=== PATIENT | male | born 1940 | race Caucasian/White ===

== ENCOUNTER 2016-12-14 14:28 | Observation (INO) ==
--- NOTE | 2016-12-14 15:03 | Emergency Department Note ---
Disposition Clinical Impression: Weakness generalized, COPD exacerbation Fatigue Qualifiers: Fatigue type: unspecified Qualified Code(s): R53.83 - Other fatigue Hypotension Qualifiers: Hypotension type: orthostatic hypotension Qualified Code(s): I95.1 - Orthostatic hypotension Disposition: Admitted As Inpatient Condition: Fair Time of Disposition: 16:02 General Adult HPI - General Chief complaint: ED Dizziness Stated complaint: Bp is low Source: patient Limitations: no limitations Nursing Notes Reviewed: Yes Vital Signs Reviewed: Yes - History of Present Illness HPI Narrative: Patient is 76-year-old male complains of dizziness and feeling like he was going to pass out. Patient states that 2 weeks ago he had an episode while working on his car and was bent forward for a period of time. Patient states that when he stood up he felt lightheaded and dizzy. He said the sensation passed after a few minutes and he did not have that sensation until 2 days ago. One day ago he went to urgent care and was told he was hypotensive. Patient with that his pulmonologists today where he was found to be hypotensive again. Patient has a history of diabetes and COPD. Patient had sinusitis 2 weeks ago and was treated with antibiotics and completed his course. Pain Scale: 0 - Related Data Home Medications Medication Instructions Recorded Confirmed Amitriptyline [Elavil] 100 mg PO HS 10/11/16 12/14/16 Aspirin [Ecotrin] 325 mg PO DAILY 10/11/16 12/14/16 Atorvastatin [Lipitor] 20 mg PO HS 10/11/16 12/14/16 Fish Oil/Dha/Epa [Fish Oil 1,200 1 each PO DAILY 10/11/16 12/14/16 mg Fish Oil] Fluticasone/Salmeterol [Advair Hfa 2 puff IH BID 10/11/16 12/14/16 230-21 Mcg Inhaler] Furosemide [Lasix] 40 mg PO DAILY 10/11/16 12/14/16 Levothyroxine [Levothyroxine 137 mcg PO DAILY 10/11/16 12/14/16 Sodium] Loratadine [Allergy Relief] 10 mg PO DAILY 10/11/16 12/14/16 Metformin HCl [Glucophage] 1,000 mg PO BID 10/11/16 12/14/16 Metoprolol Succinate 25 mg PO DAILY 10/11/16 12/14/16 Pioglitazone [Actos] 15 mg PO DAILY 10/11/16 12/14/16 SitaGLIPtin [Januvia] 100 mg PO DAILY 10/11/16 12/14/16 Vit C/E/Zn/Coppr/Lutein/Zeaxan 1 tab PO DAILY 10/11/16 12/14/16 [Preservision Areds 2 Softgel] Albuterol Sulfate [Proventil Hfa] 2 puff IH QID 12/14/16 12/14/16 Diclofenac Sodium [Voltaren] 1 - 2 gm TP 2-3XD PRN 12/14/16 12/14/16 FLUoxetine HCl [PROzac] 20 mg PO DAILY 12/14/16 12/14/16 Fluticasone Propionate Nasal 50 mcg NS DAILY 12/14/16 12/14/16 [Flonase] Gabapentin [Neurontin] 600 mg PO TID 12/14/16 12/14/16 Lisinopril [Zestril] 10 mg PO DAILY 12/14/16 12/14/16 Omeprazole [PriLOSEC] 40 mg PO DAILY 12/14/16 12/14/16 Oxygen 3 l NS AD 12/14/16 12/14/16 Allergies Allergy/AdvReac Type Severity Reaction Status Date / Time No Known Allergies Allergy Verified 10/11/16 10:33 Review of Systems: Patient denies headache, fever, chills, chest pain, chest pressure, cough, abdominal pain, diarrhea. Patient admits to worsening dyspnea on exertion stating that he can go three quarters of the distance he normally goes. Patient was not able to give me a measurement of the distance. Patient admits to generalized weakness and dizziness. Patient states that if he were to get up and walk he would lean toward the left every time. Patient admits to increase urinary frequency but he was recently started on Lasix. Patient denies anything else on review of systems when asked if there was anything worrisome that was not asked. All systems ED: reviewed and negative except as stated. Past Medical History - Past Medical History Attestation: Yes The following information was validated with the patient. Medical history: Reports: arthritis, cancer, COPD, diabetes, GERD, hyperlipidemia, hypertension, peripheral artery disease, thyroid disease, other Psychiatric history: Reports: no psych history - Social History Smoking Status: Former smoker Smokeless Tobacco Status: No Alcohol use: Reports: none Drug use: Reports: none Physical Exam Vital Signs Temperature 97.6 F 12/14/16 14:29 Pulse Rate 96 12/14/16 14:29 Respiratory Rate 16 12/14/16 14:29 Blood Pressure 132/70 12/14/16 14:29 O2 Sat by Pulse Oximetry 97 12/14/16 14:29 Temperature 97.6 F 12/14/16 14:29 Pulse Rate 96 12/14/16 14:29 Respiratory Rate 16 12/14/16 14:29 Blood Pressure 132/70 12/14/16 14:29 O2 Sat by Pulse Oximetry 97 12/14/16 14:29 Oxygen Delivery Oxygen Delivery Room Air -General Appearance: Patient is a 76-year-old male who is alert and oriented 3 and in no acute distress. -Neurological exam: Cranial nerves II-12 intact, no focal deficits observed, strength equal 5/5 bilaterally in upper and lower extremities, cerebellar motion test negative. Negative loss of sensation - Head Head exam: atraumatic, normocephalic, normal inspection - Eye Eye exam: Present: normal appearance, PERRL, EOMI, negative for scleral icterus negative for conjunctival pallor - ENT ENT exam: normal exam, normal oropharynx, mucous membranes moist - Neck Neck exam: Present: normal inspection, full ROM, trachea midline, negative JVD - Chest Chest inspection: Present: Patient has bilateral equal rise and fall of chest wall. Non-tender to palpation. - Respiratory Respiratory exam: Clear to auscultation bilaterally without wheezes rales or rhonchi Cardiovascular Cardiovascular exam: Present: regular rate, normal rhythm, normal heart sounds, without murmurs rubs or gallops. - Abdominal Exam Abdominal exam: Present: soft, round obese abdomen, Non-Tender light and deep palpation in all quadrants. Bowel sounds normoactive throughout all 4 quadrants. Negative for hyper or hyperresonance. - Extremities Exam Extremities exam: Present: normal inspection, full ROM - Psychiatric Psychiatric exam: Present: normal affect, normal mood - Skin Skin exam: Present: warm, dry, intact, abnormal skin condition on legs. Areas of erythema that appear chronic. Does not look infectious in nature. - General Limitations: no limitations General appearance: alert, in no apparent distress Course Course Narrative: Patient seen and examined. Syncope workup initiated. - Reevaluation(s) Reevaluation #1: Patient has complaints of shortness of breath but has O2 sat 97% patient was ordered DuoNeb therapy Time: 15:05 Reevaluation #2: Patient states she has no change in his shortness of breath after DuoNeb therapy. The patient that will be admitted to the hospital first try to figure out why he is having is hypotension episodes which appear to be related to his shortness of breath. Patient understands agrees treatment and plan Time: 16:12 - Consultations Consultation #1: Dr. Robertson has accepted patient for admission Time: 15:55 Vital Signs Temperature 97.6 F 12/14/16 14:29 Pulse Rate 96 12/14/16 14:29 Respiratory Rate 16 12/14/16 14:29 Blood Pressure 132/70 12/14/16 14:29 O2 Sat by Pulse Oximetry 97 12/14/16 14:29 Temperature 97.6 F 12/14/16 14:29 Pulse Rate 96 12/14/16 14:29 Respiratory Rate 18 12/14/16 16:45 Blood Pressure 111/68 12/14/16 16:45 O2 Sat by Pulse Oximetry 98 12/14/16 15:18 Oxygen Delivery Oxygen Delivery Nasal Cannula Medical Decision Making - [facility] Narrative Medical decision making narrative: Mr. Doe is a 76-year-old male with a past medical history significant for diabetes and COPD, and vertigo. Patient patient has worsening dyspnea on exertion, fatigue, and generalized weakness. Patient stated that he felt that he was going to pass out yesterday and needed his wheelchair. Patient is found to be hypotensive at his appointment with his vertigo specialist 2 days ago, he is found to be hypotensive yesterday at urgent care, and incontinent to be a pleasant hypotensive today at his pulmonolgy appointment. At presentation to the ED patient is normotensive. CBC is unremarkable, patient's BMP showed elevation of BUN at 27. Patient has been on Lasix for diuresis. Patient's troponin is 0.00, patient's BNP is 106, however patient has a BMI of 43.2. EKG shows a normal sinus rhythm with no signs of ischemia or acute ST abnormalities. Patient had an episode of witnessed hypotension at 93/53. Chest x-ray showed no acute cardiopulmonary disease. Patient is short of breath and has received DuoNeb therapy 2. Patient is on 3 L via nasal cannula. Patient will be admitted for COPD exacerbation with orthostatic hypotension, generalized weakness and fatigue with further workup after admission Patient is admitted and was accepted by Dr. Robertson. - Medical Records Medical records reviewed: Yes I reviewed the patient's medical records. - Lab Data Lab results reviewed: Yes I reviewed the patient's lab results. Lab results narrative: Short CBC 12/14/16 Range/Units 14:55 WBC 10.4 (4.3-11.1) K/mcL Hgb 12.9 (12.9-16.9) g/dL Hct 40.0 (37.5-50.1) % Plt Count 215 (140-400) K/mcL Neutrophils # 6.8 (1.6-8.9) K/mcL BMP 12/14/16 Range/Units 14:55 Sodium 136 (136-145) mEq/L Potassium 4.3 (3.5-4.5) mEq/L Chloride 101 (98-109) mEq/L Carbon Dioxide 25 (19-29) mEq/L BUN 27 H (8-26) mg/dL Creatinine 1.21 (0.72-1.25) mg/dL Glucose 135 H (70-99) mg/dL Calcium 9.1 (8.6-10.8) mg/dL Cardiac Enzymes 12/14/16 Range/Units 14:55 Troponin I 0.00 (0-0.03) ng/mL Result diagrams: 12/14/16 14:55 12/14/16 14:55 Lab Results 12/14/16 12/14/16 12/14/16 Range/Units 14:55 14:55 14:55 WBC 10.4 (4.3-11.1) K/mcL RBC 4.13 L (4.19-5.50) M/mcL Hgb 12.9 (12.9-16.9) g/dL Hct 40.0 (37.5-50.1) % MCV 96.9 (83.0-100.0) fL MCH 31.2 (28.0-33.3) pg MCHC 32.3 (31.6-35.5) g/dL RDW 14.0 (11.5-14.5) % Plt Count 215 (140-400) K/mcL MPV 10.0 (9.4-12.4) fL Immature Gran % 0.4 (0-4) % Seg Neutrophils % 65.4 % Lymphocytes % 22.3 % Monocytes % 8.6 % Eosinophils % 3.1 % Basophils % 0.2 % Neutrophils # 6.8 (1.6-8.9) K/mcL Lymphocytes # 2.3 (0.6-4.6) K/mcL Monocytes # 0.9 (0.0-1.3) K/mcL Eosinophils # 0.3 (0.0-0.6) K/mcL Basophils # 0.0 (0.0-0.2) K/mcL Sodium 136 (136-145) mEq/L Potassium 4.3 (3.5-4.5) mEq/L Chloride 101 (98-109) mEq/L Carbon Dioxide 25 (19-29) mEq/L BUN 27 H (8-26) mg/dL Creatinine 1.21 (0.72-1.25) mg/dL Est GFR ( Amer) > 60 (> 60) Est GFR (Non-Af Amer) 58 L (> 60) BUN/Creatinine Ratio 22 (6-26) Glucose 135 H (70-99) mg/dL Calculated Osmolality 289 (280-300) Calcium 9.1 (8.6-10.8) mg/dL Troponin I 0.00 (0-0.03) ng/mL B-Natriuretic Peptide (0-100) pg/mL 12/14/16 Range/Units 14:55 WBC (4.3-11.1) K/mcL RBC (4.19-5.50) M/mcL Hgb (12.9-16.9) g/dL Hct (37.5-50.1) % MCV (83.0-100.0) fL MCH (28.0-33.3) pg MCHC (31.6-35.5) g/dL RDW (11.5-14.5) % Plt Count (140-400) K/mcL MPV (9.4-12.4) fL Immature Gran % (0-4) % Seg Neutrophils % % Lymphocytes % % Monocytes % % Eosinophils % % Basophils % % Neutrophils # (1.6-8.9) K/mcL Lymphocytes # (0.6-4.6) K/mcL Monocytes # (0.0-1.3) K/mcL Eosinophils # (0.0-0.6) K/mcL Basophils # (0.0-0.2) K/mcL Sodium (136-145) mEq/L Potassium (3.5-4.5) mEq/L Chloride (98-109) mEq/L Carbon Dioxide (19-29) mEq/L BUN (8-26) mg/dL Creatinine (0.72-1.25) mg/dL Est GFR ( Amer) (> 60) Est GFR (Non-Af Amer) (> 60) BUN/Creatinine Ratio (6-26) Glucose (70-99) mg/dL Calculated Osmolality (280-300) Calcium (8.6-10.8) mg/dL Troponin I (0-0.03) ng/mL B-Natriuretic Peptide 106 H (0-100) pg/mL - Radiology Data Radiology results reviewed: Yes I reviewed the patient's radiology results. Chest X-Ray 12/14/16 15:06 IMPRESSION: No acute cardiopulmonary disease D/ / Emmanuel Huertas MD / Emmanuel Huertas MD Interpreting Provider: Emmanuel Huertas MD Attestation Statement - Attestation Attestation: I examined this patient and my medical decision-making was reviewed with the Resident Physician. I agree with the documented findings, disposition and treatment plan as described except to the extent set forth below. Exertional dyspnea. Sent in for suspicion of HF d/t sx and peripheral edema, but ED W/U unconvincing - CXR does not show congestion, BNP just over 100, no physical exam evidence of volume overload other than LE edema, certainly not specific for HF. Work up for anginal equivalent is warranted.
[2016-12-14] MEDS ORDERED: methylPREDNISolone 125 MG/2 ML VIAL IVP ONE (15:05)
[2016-12-14] MEDS ORDERED: Ipratropium/Albuterol Neb 3 ML IH ONE (15:05)
[2016-12-14 15:13] LABS: Basophils % 0.2 %; Eosinophils # 0.3 K/mcL (0.0-0.6); Eosinophils % 3.1 %; Hemoglobin 12.9 g/dL (12.9-16.9); Immature Granulocytes % 0.4 % (0-4); Lymphocytes # 2.3 K/mcL (0.6-4.6); Lymphocytes % 22.3 %; Mean Corpuscular HGB Conc 32.3 g/dL (31.6-35.5); Mean Corpuscular Hemoglobin 31.2 pg (28.0-33.3); Mean Corpuscular Volume 96.9 fL (83.0-100.0); Monocytes # 0.9 K/mcL (0.0-1.3); Monocytes % 8.6 %; Neutrophils # 6.8 K/mcL (1.6-8.9); Platelet Count 215 K/mcL (140-400); Red Blood Count 4.13 M/mcL (4.19-5.50); Segmented Neutrophils % 65.4 %
[2016-12-14 15:24] LABS: BUN/Creatinine Ratio 22 (6-26); Blood Urea Nitrogen 27 mg/dL (8-26); Calcium 9.1 mg/dL (8.6-10.8); Carbon Dioxide 25 mEq/L (19-29); Chloride 101 mEq/L (98-109); Glucose 135 mg/dL (70-99); Osmolality,Calculated 289 (280-300); Potassium 4.3 mEq/L (3.5-4.5); Sodium 136 mEq/L (136-145); eGFR For African Americans > 60 (> 60); eGFR For Non-African Americans 58 (> 60)
[2016-12-14] MEDS ORDERED: Naloxone 0.4 MG/ML INJ IVP PRN (17:19)
[2016-12-14] MEDS ORDERED: Ondansetron 4 MG/2 ML VIAL IVP PRN (17:19)
[2016-12-14] MEDS ORDERED: Acetaminophen 325 MG TABLET PO PRN (17:19)
[2016-12-14] MEDS ORDERED: D5% in Water 1,000 ML IV PRN (17:30)
[2016-12-14] MEDS ORDERED: Albuterol 2.5 MG/3 ML NEBULIZER IH PRN (17:30)
[2016-12-14] MEDS ORDERED: Dextrose Gel 15 GM PO PRN ×2 (17:30)
[2016-12-14] MEDS ORDERED: *HR* Dextrose 50 % in Water (Syg) 50 ML SYRINGE IVP PRN (17:30)
--- NOTE | 2016-12-14 20:13 | Internal Med History&Physical ---
Date of Encounter: 12/27/16 Time of Encounter: 18:30 Assessment and Plan (1) Hypotension Status: Acute 1 patient was recently started on lasix and is on multiple medications that can lower BP including metoprolol and lisinopril. I suspect his hypotension is related to these changes. I will hold lasix for now and give gentle IV hydration. BUN is elevated at 27 -Lasix can be resumed at a lower dose. He had an echo in June EF 55% with mild diastolic dysfunction will hold lisinoprol for now . May need to reduce dosage of metoprolol and lisinopril 2 orhtostatic vital signs 3 Fall precautions Qualifiers: Hypotension type: orthostatic hypotension Qualified Code(s): I95.1 - Orthostatic hypotension (2) COPD (chronic obstructive pulmonary disease) Status: Chronic 1 presently there is no wheezing and sats are stable on 3 L NC. will continue with oxygen titrate to maintain Spo2>92% 2 continue with bronchodilators 3 Will have patient continue with outpatient pulmonary rehab Qualifiers: COPD type: unspecified COPD Qualified Code(s): J44.9 - Chronic obstructive pulmonary disease, unspecified (3) Diabetes mellitus Status: Chronic 1 His A1c was 6.4 - patient is on oral antidiabetics- will hold for now and check BS AC/HS with SSI as needed to maintain postprandial less than 180. Qualifiers: Diabetes mellitus type: type 2 Diabetes mellitus complication detail: with unspecified neuropathy Diabetes mellitus terminal clerk insulin use: without mcc use Qualified Code(s): E11.40 - Type 2 diabetes mellitus with diabetic neuropathy, unspecified (4) HTN (hypertension) Status: Chronic 1 presently hypotensive, will hold lisinopril and lasix resume once back to baseline. continue metoprolol with parameters hold for systolic less less than 100 and HR less than 60 Qualifiers: Hypertension type: essential hypertension Qualified Code(s): I10 - Essential (primary) hypertension (5) Hypothyroid Status: Chronic 1 will check TSH, will continue with synthroid Qualifiers: Hypothyroidism type: unspecified Qualified Code(s): E03.9 - Hypothyroidism , unspecified (6) KYLEE (obstructive sleep apnea) Status: Chronic Internal Medicine - H&P: HPI Chief complaint: low B/P Admitted From: Home Plans for Post Hospital Care: Home History of present illness: Mr. Doe is a 76 year old male with a past medical history of hypertension diabetes hyperthyroid COPD oxygen dependent at 3 L nasal cannulasi after vertigo. Patient states that he has been experiencing episodes of lightheadedness which began on Monday. He experienced lightheadedness with positional changes and that the sensation went resolve on Monday he went to his primary care physician orthostatic vital signs were taken he did have a drop in blood pressure he was advised to go to the emergency room which she declined. Today he was at pulmonary rehabilitation where he was found to be hypertensive and again was advised to go to the emergency department for evaluation. The patient had sinusitis 2 weeks ago and was treated with antibiotics which he states he completed his course. Also he did experience vertigo approximate one month ago she states the symptoms are the same. Patient denies any headaches fevers chills chest pain cough, pain. He has been experiencing worsening fatigue , generalized weakness and dyspnea on exertion, he is on oxygen 3 L nasal cannula and was recently placed on CPAP at night for KYLEE. He has had a recent change in medication was placed on Lasix, however he does not know why he was started on this medication Upon arrival to emergency department patient's blood pressure was 132/70 oxygen saturation was 97% pulse was 96 he was afebrile. CBC was unremarkable Chem 7, BUN was slightly elevated 27 troponin was 0 EKG with normal sinus rhythm with no ST T wave abnormalities chest x-ray with no acute cardiopulmonary process. While in the ER he did experience a episode of hypotension with blood pressure dropping to 93/53. During this episode he did become short of breath and received duo nebs 2 he is admitted for further workup and evaluation. At present patient does not appear to be in any respiratory distress he denies any chest pain or shortness of breath at this time. He is hemodynamically stable at this time.I reviewed case with Dr Lay who agrees with plan Past Med Surg Social Fam HX - Past Medical History Medical history: arthritis, cancer, COPD, diabetes, GERD, hyperlipidemia, hypertension, peripheral artery disease, thyroid disease, other Psychiatric history: no psych history - Social History Smoking Status: Former smoker Smokeless Tobacco Status: No Alcohol use: none Drug use: none - Family History Father History Unknown: Yes Adopted: No Family Member Ethnicity: Non- Living Status: Hx Family Cardiac Disorders: No Hx Family Respiratory Disorders: Yes (Asbestosis) Hx Family Cancer: Yes (Lung CA) Hx Family GI Disorders: No Hx Family Endocrine Disorder: No Hx Family Neuromuscular Disorders: No Hx Family Neurologic Disorders: No Hx Family HEENT Disorders: No Hx Family Autoimmune Disorders: No Internal Medicine - H&P: Meds Amitriptyline [Elavil] 100 mg PO HS 10/11/16 [History] Atorvastatin [Lipitor] 20 mg PO HS 10/11/16 [History] Fish Oil/Dha/Epa [Fish Oil 1,200 mg Fish Oil] 1 each PO DAILY 10/11/16 [History] Fluticasone/Salmeterol [Advair Hfa 230-21 Mcg Inhaler] 2 puff IH BID 10/11/16 [ History] Levothyroxine [Levothyroxine Sodium] 137 mcg PO DAILY 10/11/16 [History] Loratadine [Allergy Relief] 10 mg PO DAILY 10/11/16 [History] Metformin HCl [Glucophage] 1,000 mg PO BID 10/11/16 [History] Pioglitazone [Actos] 15 mg PO DAILY 10/11/16 [History] SitaGLIPtin [Januvia] 100 mg PO DAILY 10/11/16 [History] Vit C/E/Zn/Coppr/Lutein/Zeaxan [Preservision Areds 2 Softgel] 1 tab PO DAILY [History] Albuterol Sulfate [Proventil Hfa] 2 puff IH QID 12/14/16 [History] Diclofenac Sodium [Voltaren] 1 - 2 gm TP 2-3XD PRN 12/14/16 [History] FLUoxetine HCl [Prozac] 20 mg PO DAILY 12/14/16 [History] Fluticasone Propionate Nasal [Flonase] 50 mcg NS DAILY 12/14/16 [History] Gabapentin [Neurontin] 600 mg PO TID 12/14/16 [History] Omeprazole [PriLOSEC] 40 mg PO DAILY 12/14/16 [History] Oxygen 3 l NS AD 12/14/16 [History] Furosemide [Lasix] 10 mg PO DAILY #30 tab 12/16/16 [Rx] Metoprolol [Lopressor] 12.5 mg PO BID #60 tablet 12/16/16 [Rx] Warfarin [Coumadin] 3 mg PO 1800 #4 tablet 12/16/16 [Rx] Allergies No Known Allergies Allergy (Verified 10/11/16 10:33) All Systems PM: A 10-system review of systems was performed and is negative for pertinent findings except as documented above in the HPI. - Constitutional Constitutional: fatigue, weakness - Cardiovascular Cardiovascular ROS IM: dyspnea on exertion, edema, lightheadedness - Respiratory Respiratory: dyspnea on exertion - Gastrointestinal Gastrointestinal: no abdominal pain, no diarrhea, no hematemesis, no hematochezia, no melena, no nausea, no vomiting - Musculoskeletal Musculoskeletal ROS IM: no numbness, no tingling - Neurological Neurological ROS: no confusion, no convulsions, no focal weakness, no numbness, no tingling, no tremor(s) - Constitutional Vitals: Temp Pulse Resp BP Pulse Ox 97.5 F L 85 16 117/73 99 12/14/16 17:54 12/14/16 17:54 12/14/16 17:54 12/14/16 17:54 12/14/16 19:05 General appearance: Present: A&O X 3, answers questions appropriately - Head Head exam: Present: atraumatic, normocephalic - Eye Eye exam: Present: PERRL, conjuntiva pink, sclera anicteric Pupils: Present: PERRL - Respiratory Respiratory exam: Present: CTAB. Absent: accessory muscle use, rales, rhonchi, wheezes - Cardiovascular Cardiovascular exam: Present: RRR, +S1, +S2. Absent: diastolic murmur, gallop, rubs, systolic murmur - GI/Abdominal GI/Abdominal exam: Present: normal bowel sounds, soft, no peritoneal signs. Absent: distended, tenderness - Extremities Exam Extremities exam: Present: pedal edema, warm, radial pulses palpable and symetrical. Absent: calf tenderness, cyanotic Additional comments: +2 edema to lower extremities bilat - Neurological Exam Neurological exam: Present: CN II-XII intact, oriented X3, no focal deficits. Absent: pronater drift, facial droop, speech deficit - Skin Skin exam: Present: dry, intact Internal Med - H&P Results - Labs CBC & Chem 7: 12/16/16 10:16 12/16/16 10:16 - EKG Data EKG shows normal: sinus rhythm Rate: normal - Diagnostic Studies Chest x-ray Additional comments: per radiology read No acute cardiopulmonary process
[2016-12-14 20:35] LABS: Bilirubin,Urine Negative (Negative); Blood,Urine Negative (Negative); Clarity,Urine Clear (Clear); Color,Urine Yellow (Yellow); Glucose,Urine (UA) Normal (Normal); Ketones,Urine Trace mg/dL (Negative); Leukocyte Esterase,Urine Trace (Negative); Nitrite,Urine Negative (Negative); Protein,Urine Negative (Neg-Trace); Urobilinogen,Urine Normal (Normal)
[2016-12-14] MEDS: 0.9 % Sodium Chloride 1,000 ML IVC SCH (20:37)
[2016-12-14] MEDS: Gabapentin 300 MG CAPSULE PO SCH (20:37)
[2016-12-14 20:52] LABS: Bacteria,Urine None Seen per hpf (None-Few); Hyaline Casts,Urine None Seen per lpf (None-Few); RBC,Urine 0-3 per hpf (0-3); Squamous Epithelial Cell,Urine Many per lpf (None-Few)
[2016-12-14] MEDS ORDERED: Insulin LISPRO 300 UNITS/3 ML VIAL SQ SCH (21:00)
[2016-12-14] MEDS: Ipratropium/Albuterol Neb 3 ML IH SCH (22:59)
[2016-12-15 03:52] LABS: BUN/Creatinine Ratio 25 (6-26); Basophils % 0.1 %; Blood Urea Nitrogen 31 mg/dL (8-26); Calcium 8.8 mg/dL (8.6-10.8); Carbon Dioxide 18 mEq/L (19-29); Chloride 101 mEq/L (98-109); Glucose 308 mg/dL (70-99); Hematocrit 34.7 % (37.5-50.1); Hemoglobin 11.4 g/dL (12.9-16.9); Immature Granulocytes % 0.5 % (0-4); Lymphocytes # 0.8 K/mcL (0.6-4.6); Lymphocytes % 7.7 %; Mean Corpuscular HGB Conc 32.9 g/dL (31.6-35.5); Mean Corpuscular Hemoglobin 31.6 pg (28.0-33.3); Mean Corpuscular Volume 96.1 fL (83.0-100.0); Mean Platelet Volume 10.3 fL (9.4-12.4); Monocytes # 0.1 K/mcL (0.0-1.3); Monocytes % 0.9 %; Neutrophils # 8.8 K/mcL (1.6-8.9); Osmolality,Calculated 290 (280-300); Platelet Count 216 K/mcL (140-400); Potassium 4.7 mEq/L (3.5-4.5); Red Blood Count 3.61 M/mcL (4.19-5.50); Red Cell Distribution Width 13.9 % (11.5-14.5); Segmented Neutrophils % 90.8 %; Sodium 131 mEq/L (136-145); eGFR For African Americans > 60 (> 60); eGFR For Non-African Americans 56 (> 60)
[2016-12-15] MEDS: Ipratropium/Albuterol Neb 3 ML IH SCH ×4 (04:31→23:09)
[2016-12-15] MEDS ORDERED: Insulin LISPRO 300 UNITS/3 ML VIAL SQ SCH ×2 (07:30→21:00)
[2016-12-15] MEDS: Loratadine 10 MG TABLET PO SCH (08:19)
[2016-12-15] MEDS: FLUoxetine 20 MG CAPSULE PO SCH (08:19)
[2016-12-15] MEDS: Gabapentin 300 MG CAPSULE PO SCH (08:19)
[2016-12-15] MEDS: Fluticasone Propionate Nasal 50 MCG/SPRAY BOTTLE NS SCH (08:21)
[2016-12-15] MEDS ORDERED: Aspirin Enteric Coated 325 MG Tablet PO SCH (09:00)
[2016-12-15] MEDS ORDERED: Metoprolol XL (24 HR) Succ 25 MG TAB.ER.24H PO SCH (09:00)
[2016-12-15] MEDS: 0.9 % Sodium Chloride 1,000 ML IVC SCH ×2 (09:40→22:30)
--- NOTE | 2016-12-15 10:56 | Electrocardiograph Report ---
[facility] Test Date: 2016-12-14 Pat Name: Natanael Doe Department: 105 Room: 2A24 Gender: M Arborist: SHANDRA : 1940 Requested By: Farhad Pandya Order Number: [id number] Reading MD: Perfecto Isbell MD Measurements Intervals [place] Rate: 88 P: 46 NH: 198 QRS: 43 QRSD: 91 T: 48 QT: 329 QTc: 375 Interpretive Statements SINUS RHYTHM Electronically Signed On 12-15-16 10:54:45 EST by Perfecto Isbell MD
[2016-12-15] MEDS: Insulin LISPRO 300 UNITS/3 ML VIAL SQ SCH ×2 (12:23→17:11)
[2016-12-15] MEDS: Gabapentin 100 MG CAPSULE PO SCH ×2 (14:15→20:15)
[2016-12-15] MEDS ORDERED: *HR* Heparin 5,000 UNIT/ML VIAL SQ SCH (15:00)
--- NOTE | 2016-12-15 15:34 | Cardiology Consult Note ---
Addendum entered and electronically signed by Ba Mohr CNP 12/15/16 15:59 : IS Original Note: Date of Encounter: 12/15/16 Time of Encounter: 15:31 Assessment and Plan (1) Atrial fibrillation Current Visit: Yes Status: Acute EKG showed normal sinus rhythm with first-degree block. 24 hour telemetry review shows atrial fibrillation through the night and this morning. Intermittent atrial fibrillation this morning and now he is normal sinus rhythm. He is asymptomatic. Recommend discontinuing lisinopril and restarting metoprolol if blood pressure allows. CHADS VASc = 3 ( HTN, age, diabetes). Anticoagulation is recommended. He is agreeable to eliquis. Echocardiogram in June of 2016 showed LV ejection fraction of 55% with mild diastolic dysfunction. Normal right ventricular size and function. There was a TR gradient of 26 mmHg. Please call with questions. Qualifiers: Atrial fibrillation type: unspecified Qualified Code(s): I48.91 - Unspecified atrial fibrillation (2) Hypotension Current Visit: Yes Status: Acute Describes orthostatic symptoms. May be secondary hypovolemia after taking increased dose of lasix. Recommend holding lasix and resuming at 20 mg at discharge. Qualifiers: Hypotension type: orthostatic hypotension Qualified Code(s): I95.1 - Orthostatic hypotension Discussion w patient/family: The assessment and plan as outlined above was discussed with the patient and/or family members who expressed understanding and agreement. All questions were answered. Thank you for involving us in the care of your patient. Please call with any questions. History of Present Illness Consult date: 12/15/16 Requesting physician: Abel Winston Consult reason: afib new onset Chief complaint: dizziness History of present illness: Mr. Doe is a 76 year old male who presented with dizziness and SOB. He c/o low blood pressures at home. He was instructed to go to the ER for low blood pressure. He c/o dizziness with position changes and walking. Reports increase in lasix one month ago for SOB and BLE edema. This morning he was noted to have atrial fibrillation. Cardiology consulted for ne onset of atrial fibrillation. He denies palpitations or increased SOB. Past medical history of COPD on home O2, hypertension, hyperlipidemia, DVT, and diabetes type 2. Denies history of CAD. Reports undergoing LHC several years ago showing a narrow blood vessel but no blockages. Echocardiogram in June of 2016 showed LV ejection fraction of 55% with mild diastolic dysfunction. Normal right ventricular size and function. There was a TR gradient of 26 mmHg. Past Med Surg Social Fam HX - Past Medical History Medical history: arthritis, cancer, COPD, diabetes, GERD, hyperlipidemia, hypertension, peripheral artery disease, thyroid disease, other Psychiatric history: no psych history - Social History Smoking Status: Former smoker Smokeless Tobacco Status: No Alcohol use: none Drug use: none - Family History Father History Unknown: Yes Adopted: No Family Member Ethnicity: Non- Living Status: Hx Family Cardiac Disorders: No Hx Family Respiratory Disorders: Yes (Asbestosis) Hx Family Cancer: Yes (Lung CA) Hx Family GI Disorders: No Hx Family Endocrine Disorder: No Hx Family Neuromuscular Disorders: No Hx Family Neurologic Disorders: No Hx Family HEENT Disorders: No Hx Family Autoimmune Disorders: No Medications and Allergies Amitriptyline [Elavil] 100 mg PO HS 10/11/16 [History] Aspirin [Ecotrin] 325 mg PO DAILY 10/11/16 [History] Atorvastatin [Lipitor] 20 mg PO HS 10/11/16 [History] Fish Oil/Dha/Epa [Fish Oil 1,200 mg Fish Oil] 1 each PO DAILY 10/11/16 [History] Fluticasone/Salmeterol [Advair Hfa 230-21 Mcg Inhaler] 2 puff IH BID 10/11/16 [ History] Furosemide [Lasix] 40 mg PO DAILY 10/11/16 [History] Levothyroxine [Levothyroxine Sodium] 137 mcg PO DAILY 10/11/16 [History] Loratadine [Allergy Relief] 10 mg PO DAILY 10/11/16 [History] Metformin HCl [Glucophage] 1,000 mg PO BID 10/11/16 [History] Metoprolol Succinate 25 mg PO DAILY 10/11/16 [History] Pioglitazone [Actos] 15 mg PO DAILY 10/11/16 [History] SitaGLIPtin [Januvia] 100 mg PO DAILY 10/11/16 [History] Vit C/E/Zn/Coppr/Lutein/Zeaxan [Preservision Areds 2 Softgel] 1 tab PO DAILY [History] Albuterol Sulfate [Proventil Hfa] 2 puff IH QID 12/14/16 [History] Diclofenac Sodium [Voltaren] 1 - 2 gm TP 2-3XD PRN 12/14/16 [History] FLUoxetine HCl [PROzac] 20 mg PO DAILY 12/14/16 [History] Fluticasone Propionate Nasal [Flonase] 50 mcg NS DAILY 12/14/16 [History] Gabapentin [Neurontin] 600 mg PO TID 12/14/16 [History] Lisinopril [Zestril] 10 mg PO DAILY 12/14/16 [History] Omeprazole [PriLOSEC] 40 mg PO DAILY 12/14/16 [History] Oxygen 3 l NS AD 12/14/16 [History] Allergies No Known Allergies Allergy (Verified 10/11/16 10:33) All Systems Review: A 10-system review of systems was performed and is negative for pertinent findings except as documented above in the HPI. Physical Examination Vital Signs, Last 4 Hours Temp Pulse Resp BP Pulse Ox 12/15/16 11:52 16 98 12/15/16 11:50 97.5 F L 91 18 92/54 97 General: Conversant, No Apparent Distress HEENT: Atraumatic, Normocephaly, Mucus Membranes Moist Neck: No JVD, Normal carotid pulses Cardiac: Reg Rate and Rhythm, Normal S1 and S2, No Murmur, Other (Currently normal sinus rhythm with intermittent Afib) Lungs: Normal Breath Sounds, No Wheeze, Rales, Rhonchi Neuro: Alert and responsive, No focal deficits noted Abdomen: Soft, Non-Tender, Other (Abdomen large but soft to palpation) Skin: No rashes noted on visualized skin, Other (Brown discoloration bilateral lower extremity) Musculoskeletal: No Chest Wall Tenderness Extremities: No Clubbing, No Cyanosis, Normal Pulses, Other (Trace to 1+ edema up to mid keating bilaterally) Results 12/15/16 03:18 12/15/16 03:18 Lab Results 12/14/16 12/15/16 12/15/16 20:31 03:18 03:18 WBC 9.7 Hgb 11.4 L D Hct 34.7 L Plt Count 216 Sodium Potassium Chloride Carbon Dioxide BUN Creatinine Glucose Calcium Troponin I 0.00 0.00 TSH 12/15/16 12/15/16 03:18 03:18 WBC Hgb Hct Plt Count Sodium 131 L Potassium 4.7 H Chloride 101 Carbon Dioxide 18 L BUN 31 H Creatinine 1.25 Glucose 308 H Calcium 8.8 Troponin I TSH 0.391 - Imaging and Cardiology Echo: report reviewed (Echocardiogram in June of 2016 showed LV ejection fraction of 55% with mild diastolic dysfunction. Normal right ventricular size and function. There was a TR gradient of 26 mmHg.) - EKG Interpretation EKG results cardiology: personally reviewed (EKG shows normal sinus rhythm. EKG completed at noon today shows normal sinus rhythm with first-degree block.), other (24 hour telemetry review shows normal sinus rhythm with intermittent atrial fibrillation that is rate controlled. Currently normal sinus rhythm. Average heart rate is 86 bpm. Heart rate is 90 bpm. Minimum heart rate was 45 bpm sinus bradycardia at 9:18 am) Consult Discharge Plan - Plan Instructions: Parkinson's Disease (GEN) Referrals: Shayy Rodgers MD [Primary Care Provider] - 12/20/16 1:30 pm ( )
--- NOTE | 2016-12-15 16:26 | Internal Med Progress Note ---
Date of Encounter: 12/15/16 Time of Encounter: 12:25 - Assessment and plan (1) Orthostatic hypotension Current Visit: Yes Status: Acute Assessment and plan: Continue IVF hydration Continue to old diuretics Obtain ECHO Restart lopressor at low dose due to new Afib Fall precautions (2) Atrial fibrillation Current Visit: Yes Status: Acute Assessment and plan: Paroxysmal Afib He will need anticoagulation Consult cardiology TSH is WNL HR is controlled Low dose Lopressor Qualifiers: Atrial fibrillation type: paroxysmal Qualified Code(s): I48.0 - Paroxysmal atrial fibrillation (3) Diabetes mellitus Current Visit: Yes Status: Chronic Assessment and plan: Insulin FS ACHS Qualifiers: Diabetes mellitus type: type 2 Diabetes mellitus complication detail: with unspecified neuropathy 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 mellitus lead javascript developer insulin use: without assisted use Qualified Code(s): E11.40 - Type 2 diabetes mellitus with diabetic neuropathy, unspecified (4) HTN (hypertension) Current Visit: Yes Status: Chronic Assessment and plan: Currently hypotensive Hold other meds except lopressor Qualifiers: Hypertension type: essential hypertension Qualified Code(s): I10 - Essential (primary) hypertension (5) Hypothyroid Current Visit: Yes Status: Chronic Assessment and plan: TSH WNL , continue levothyroxine Qualifiers: Hypothyroidism type: unspecified Qualified Code(s): E03.9 - Hypothyroidism , unspecified (6) KYLEE (obstructive sleep apnea) Current Visit: Yes Status: Chronic Assessment and plan: on CPAP at home BiPAP at night (7) COPD (chronic obstructive pulmonary disease) Current Visit: Yes Status: Chronic Assessment and plan: Not on exacerbation a this time Nebs prn Resume home meds Qualifiers: COPD type: unspecified COPD Qualified Code(s): J44.9 - Chronic obstructive pulmonary disease, unspecified - Subjective Interval history: 76 Y/O M with COPD on home O2 and on pulmonar rehab, CHFpEF, DM, HTN, KYLEE on CPAP Patient was placed on observation for management of orthostatic hypotesion He had recently been started on several medications Tele revew showed Afib EKG on admission was Sinus His repeat EKG showed NSR with 1st degree A-V block. VR 90. He is seen at bedside, still dizzy when he stads up Orthostatic vital signs today positive I have held toprol and consulted cardiology for new onset paroxysmal Afib and hypotension ECHO has been ordered, will follow Will continue gentle hydration - Constitutional Vitals: Temp Pulse Resp BP Pulse Ox 97.5 F L 91 16 92/54 98 12/15/16 11:50 12/15/16 11:50 12/15/16 11:52 12/15/16 11:50 12/15/16 11:52 General appearance: Present: A&O X 3, morbidly obese, pleasant, answers questions appropriately - Head Head exam: Present: atraumatic, normocephalic - Eye Eye exam: Present: PERRL, conjuntiva pink, sclera anicteric - ENT ENT exam: Present: mucous membranes moist - Neck Neck exam general surgery: Present: normal inspection - Respiratory Respiratory exam: Present: CTAB. Absent: rales, rhonchi, stridor, wheezes - Cardiovascular Cardiovascular exam: Present: RRR, +S1, +S2 - GI/Abdominal GI/Abdominal exam: Present: soft, no peritoneal signs. Absent: tenderness Additional comments: Obese, not tender - Extremities Exam Additional comments: Varicose veins, no pitting pedal edema - Neurological Exam Neurological exam: Present: alert, oriented X3, no focal deficits. Absent: pronater drift, facial droop, speech deficit - Skin Skin exam: Present: dry Internal Medicine: Result - Labs CBC & Chem 7: 12/15/16 03:18 12/15/16 03:18 Labs: Short CBC 12/15/16 Range/Units 03:18 WBC 9.7 (4.3-11.1) K/mcL Hgb 11.4 L D (12.9-16.9) g/dL Hct 34.7 L (37.5-50.1) % Plt Count 216 (140-400) K/mcL Neutrophils # 8.8 (1.6-8.9) K/mcL BMP 12/15/16 03:18 Sodium 131 L Potassium 4.7 H Chloride 101 Carbon Dioxide 18 L BUN 31 H Creatinine 1.25 Glucose 308 H Calcium 8.8 Cardiac Enzymes 12/14/16 12/15/16 Range/Units 20:31 03:18 Troponin I 0.00 0.00 (0-0.03) ng/mL Urine 12/14/16 Range/Units 20:25 Urine Color Yellow (Yellow) Urine Clarity Clear (Clear) Urine pH 6.0 (5.0-8.0) pH Units Ur Specific [place] 1.020 (1.010-1.025) Urine Protein Negative (Neg-Trace) mg/dL Urine Glucose (UA) Normal (Normal) mg/dL Consult Discharge Plan - Plan Instructions: Parkinson's Disease (GEN) Referrals: Shayy Rodgers MD [Primary Care Provider] - 12/20/16 1:30 pm ( )
[2016-12-15] MEDS: APIXABAN 5 MG TABLET PO SCH (20:15)
[2016-12-16] MEDS: Ipratropium/Albuterol Neb 3 ML IH SCH ×3 (04:26→16:10)
[2016-12-16] MEDS: Insulin LISPRO 300 UNITS/3 ML VIAL SQ SCH ×5 (08:04→17:03)
[2016-12-16] MEDS: FLUoxetine 20 MG CAPSULE PO SCH (08:05)
[2016-12-16] MEDS: Gabapentin 100 MG CAPSULE PO SCH ×2 (08:06→15:45)
[2016-12-16] MEDS: APIXABAN 5 MG TABLET PO SCH (08:06)
[2016-12-16] MEDS: Loratadine 10 MG TABLET PO SCH (08:08)
[2016-12-16] MEDS: Fluticasone Propionate Nasal 50 MCG/SPRAY BOTTLE NS SCH (08:30)
[2016-12-16 10:25] LABS: Basophils % 0.2 %; Eosinophils # 0.1 K/mcL (0.0-0.6); Eosinophils % 0.5 %; Hematocrit 34.6 % (37.5-50.1); Hemoglobin 11.6 g/dL (12.9-16.9); Immature Granulocytes % 0.4 % (0-4); Lymphocytes # 2.5 K/mcL (0.6-4.6); Lymphocytes % 17.5 %; Mean Corpuscular HGB Conc 33.5 g/dL (31.6-35.5); Mean Corpuscular Volume 95.6 fL (83.0-100.0); Mean Platelet Volume 9.7 fL (9.4-12.4); Monocytes # 1.1 K/mcL (0.0-1.3); Monocytes % 7.8 %; Neutrophils # 10.6 K/mcL (1.6-8.9); Platelet Count 223 K/mcL (140-400); Red Blood Count 3.62 M/mcL (4.19-5.50); Red Cell Distribution Width 14.2 % (11.5-14.5); Segmented Neutrophils % 73.6 %
[2016-12-16 10:34] LABS: BUN/Creatinine Ratio 26 (6-26); Blood Urea Nitrogen 25 mg/dL (8-26); Carbon Dioxide 21 mEq/L (19-29); Chloride 105 mEq/L (98-109); Glucose 251 mg/dL (70-99); Osmolality,Calculated 297 (280-300); Potassium 4.5 mEq/L (3.5-4.5); Sodium 137 mEq/L (136-145); eGFR For African Americans > 60 (> 60); eGFR For Non-African Americans > 60 (> 60)
--- NOTE | 2016-12-16 14:31 | ECHO - Doppler Report ---
Echocardiogram Name: Natanael Doe Date of Study: 12/16/2016 Date: 1940 Ht: 71.0 in Medical Record#: [id number] Age: 76 Wt: 315.0 lb Gender: Male BSA: 2.56 Order #: [id number] Location: [facility] Room #: 2A24 Reading Physician: Jace Calvert DO, CÉSAR, DAVID GO Lead Scientist: Shannan Jameson RVT Ordering Physician: Abel Winston MD Primary Physician: Shayy Rodgers MD Indications: Congestive heart failure Impressions: Technically sub-optimal due to body habitus. LVEF 55-60%. Normal LV chamber size, wall thickness and function. Moderate left ventricular diastolic dysfunction. Right ventricle was not well visualized. Grossly, it demonstrates normal function. Unable to estimate RVSP due to lack of TR jet. Mild pulmonic regurgitation. Left Ventricular Wall Motion: Rest Echo Findings All wall segments showed normal motion. Findings: Study Quality * Technically sub-optimal due to body habitus. ECG Findings * Normal sinus rhythm. Left Ventricle * LVEF 55-60%. * Normal LV chamber size, wall thickness and function. * Moderate left ventricular diastolic dysfunction. * Right Ventricle * Right ventricle was not well visualized. Grossly, it demonstrates normal function. Left Atrium * Mildly dilated left atrium. Right Atrium * Mildly dilated right atrium. Interatrial Septum * Interatrial septum not well evaluated. Aortic Valve * Aortic valve not well visualized. * No aortic regurgitation. * No aortic stenosis. Mitral Valve * Mild mitral annular calcification * Trace mitral regurgitation. * No mitral stenosis. Tricuspid Valve * Normal tricuspid valve structure and function. * Trace tricuspid regurgitation. * Unable to estimate RVSP due to lack of TR jet. Pulmonic Valve * Normal pulmonic valve structure. * Mild pulmonic regurgitation. Aorta * Normally sized aortic root. Pericardium * The pericardium appears normal. IVC * Normal IVC dimensions and inspiratory collapse. Pulmonary Artery * Normal visualized portions of the main pulmonary artery. History Hypertension Diabetes Hypercholesteremia Family History of CAD Congestive Heart Failure 06/28/2016 a Previous Echo was performed. Measurements: BP: 126/ 60 2D Normal Values RVIDd: 4.05 cm <2.7 cm IVSd: .80 cm 0.6 - 1.0 cm LVIDd: 5.20 cm 3.7 - 5.6 cm LVPWd: .80 cm 0.6 - 1.1 cm LVIDs: 4.30 cm 1.5 - 3.6 cm AO: 2.90 cm < 4.0 cm LA: 4.10 cm 2.0 - 4.0cm %FS: 16.40 cm >25 % LA volume: 70 Mitral Valve Peak E:1.11 m/sec Peak A:.69 m/sec E/A Ratio:1.6 Peak E' Lat Marco:8.9 cm/s Peak E' Med Marco:10.7 cm/s E/E' Lat Ratio:12.4 E/E' Med Ratio:10.4 Tricuspid Valve TV Regurg Peak Grad: 4.00mmHg TV Regurg Peak Marco: .98m/sec Updated by Jace Calvert DO, CÉSAR, DAVID GO on 12/16/2016 2:19:43 PM electronically signed on 12/16/2016 2:26:22 PM with status of Final Wall Motion Constantino: 1=Normal, 2=Hypokinesis, 3=Akinesis, 4=Dyskinesis, 5=Aneurysmal, 6=Hyperkinetic, X=Not Visualized (Blank)=Missing
--- NOTE | 2016-12-16 15:01 | Discharge Summary ---
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 insulin use: without termite exterminator helper use Qualified Code(s): E11.40 - Type 2 diabetes mellitus with diabetic neuropathy, unspecified (4) HTN (hypertension) Priority: Secondary Status: Chronic Qualifiers: Hypertension type: essential hypertension Qualified Code(s): I10 - Essential (primary) hypertension (5) Hypothyroid Priority: Secondary Status: Chronic Qualifiers: Hypothyroidism type: unspecified Qualified Code(s): E03.9 - Hypothyroidism , unspecified (6) KYLEE (obstructive sleep apnea) Priority: Secondary Status: Chronic (7) COPD (chronic obstructive pulmonary disease) Priority: Secondary Status: Chronic Qualifiers: COPD type: unspecified COPD Qualified Code(s): J44.9 - Chronic obstructive pulmonary disease, unspecified - Discharge Medications Prescriptions: Metoprolol [Lopressor] 12.5 mg PO BID #60 tablet Warfarin [Coumadin] 3 mg PO 1800 #4 tablet Home Medications: Amitriptyline [Elavil] 100 mg PO HS 10/11/16 [History] Atorvastatin [Lipitor] 20 mg PO HS 10/11/16 [History] Fish Oil/Dha/Epa [Fish Oil 1,200 mg Fish Oil] 1 each PO DAILY 10/11/16 [History] Fluticasone/Salmeterol [Advair Hfa 230-21 Mcg Inhaler] 2 puff IH BID 10/11/16 [ History] Levothyroxine [Levothyroxine Sodium] 137 mcg PO DAILY 10/11/16 [History] Loratadine [Allergy Relief] 10 mg PO DAILY 10/11/16 [History] Metformin HCl [Glucophage] 1,000 mg PO BID 10/11/16 [History] Pioglitazone [Actos] 15 mg PO DAILY 10/11/16 [History] SitaGLIPtin [Januvia] 100 mg PO DAILY 10/11/16 [History] Vit C/E/Zn/Coppr/Lutein/Zeaxan [Preservision Areds 2 Softgel] 1 tab PO DAILY [History] Albuterol Sulfate [Proventil Hfa] 2 puff IH QID 12/14/16 [History] Diclofenac Sodium [Voltaren] 1 - 2 gm TP 2-3XD PRN 12/14/16 [History] FLUoxetine HCl [Prozac] 20 mg PO DAILY 12/14/16 [History] Fluticasone Propionate Nasal [Flonase] 50 mcg NS DAILY 12/14/16 [History] Gabapentin [Neurontin] 600 mg PO TID 12/14/16 [History] Omeprazole [PriLOSEC] 40 mg PO DAILY 12/14/16 [History] Oxygen 3 l NS AD 12/14/16 [History] Furosemide [Lasix] 10 mg PO DAILY #30 tab 12/16/16 [Rx] Metoprolol [Lopressor] 12.5 mg PO BID #60 tablet 12/16/16 [Rx] Warfarin [Coumadin] 3 mg PO 1800 #4 tablet 12/16/16 [Rx] Allergies/Adverse Reactions: Allergies No Known Allergies Allergy (Verified 10/11/16 10:33) Procedures/tests Complete & Pending: Procedures Performed prior 72 hours Category Date Time Status EKG [ECG 12 lead ECG] [ECG] Routine Y 12/15/16 11:21 Completed EV echocardiogram Routine Y 12/16/16 09:06 Completed Date of admission: 12/14/16 16:35 Primary care physician: Shayy Espinal Consults: 12/15/16 13:46 Consult to Cardiology [CONS] Routine Comment: Consulting Provider: [facility] Reason for Consult: Hypotension, some strips on tele with new Afib, and EKG with Afib. Pls evaluate, thank you Call Completed: No Discharging clinician: Abel Winston Anticipated date of discharge: 12/16/16 - Patient Status Disposition: Home, Self-Care Condition: Fair Functional capacity at discharge: uses cane/walker Overall status at discharge: patient is progressing back to baseline - Discharge Instructions Instructions: Parkinson's Disease (GEN) Follow Up With: Shayy Rodgers MD [Primary Care Provider] - 12/20/16 1:30 pm ( ) Vinay Oneil MD [Partnered Physician] - (Follow-up in two weeks.) - Diet and Activity Activity: wear oxygen at all times Diet: diabetic diet, low fat, low cholesterol, low salt diet Interval History: See below Hospital course: 76 Y/O M with COPD on home O2 and on pulmonary rehab, CHFpEF, DM, HTN, KYLEE on CPAP Patient was placed on observation for management of orthostatic hypotension He had recently been started on several antihypertensives and lasix Admitting work up was negative for sepsis Hospital stay revealed paroxysmal Afib on tele, with normal ventricular rate. ECHO done revealed NSR, LVEF 55-60%, Normal LV chamber size, wall thickness and function, moderate LVDD. He was given IVF hydration and his medications were adjusted. Toprol XL was changed to lopressor 12.mg bid His lasix has been decreased from 40mg daily to 10mg daily. He is not in fluid overload His lisinoprill has been held He was started on Eliquis for Newly diagnosed Afib At time of discharge, it was discovered that patient has a co-pay for this medication that he is unable to afford He will be discharged on Warfarin He has been educated about follow up in INR clinic and bleeding risk, he verbalizes understanding His labs today showed leuocytosis, however patient has no clinical symptoms and signs of infection He remains stable for discharge home with family Follow up in INR clinic and with PCP, and Pulmonology - Time Spent with Patient Total time spent providing and/or coordinating discharge services: Less than 30 minutes - Constitutional Vitals: Temp Pulse Resp BP Pulse Ox 97.5 F L 74 20 129/62 98 12/16/16 10:44 12/16/16 10:44 12/16/16 10:44 12/16/16 10:44 12/16/16 10:44 General appearance: Present: A&O X 3, morbidly obese, pleasant, answers questions appropriately - Head Head exam: Present: atraumatic, normocephalic - Eye Eye exam: Present: PERRL, conjuntiva pink, sclera anicteric Pupils: Present: PERRL - Neck Neck exam general surgery: Present: supple, trachea midline. Absent: lymphadenopathy - Respiratory Respiratory exam: Present: CTAB. Absent: accessory muscle use, rales, rhonchi, wheezes - Cardiovascular Cardiovascular exam: Present: RRR, +S1, +S2. Absent: diastolic murmur, gallop, rubs, systolic murmur - GI/Abdominal GI/Abdominal exam: Present: normal bowel sounds, soft, no peritoneal signs. Absent: distended, tenderness - Extremities Exam Extremities exam: Present: warm, radial pulses palpable and symetrical. Absent : calf tenderness, cyanotic, pedal edema Additional comments: Varicose veins - Neurological Exam Neurological exam: Present: CN II-XII intact, oriented X3, no focal deficits. Absent: pronater drift, facial droop, speech deficit - Skin Skin exam: Present: dry, intact
[2016-12-16 15:06] VITALS: BP 122/68
--- NOTE | 2016-12-16 16:19 | Electrocardiograph Report ---
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
[2016-12-16] MEDS ORDERED: Insulin DETEMIR 100 UNIT/ML X5UNITS SQ SCH (21:00)
== END 2016-12-16 17:33 | disposition home or self-care (01) ==
LOC: EMEROO 14:28 → 2ANU 14:28 → SUATTDRO 16:35 → 2ANU 16:57
PROVIDERS: ADMIT Nurse Practitioner Family; ATTEND Internal Medicine

== ENCOUNTER 2018-05-17 18:17 | Inpatient (IN) ==
--- NOTE | 2018-05-17 19:13 | Emergency Department Note ---
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 status Diabetes mellitus complication status: with unspecified complications Qualified Code(s): E11.8 - Type 2 diabetes mellitus with unspecified complications Disposition: Admitted As Inpatient Condition: Undetermined Referrals: Shayy Rodgers MD [Primary Care Provider] - Forms: ED Satisfaction Letter Time of Disposition: 20:39 SOB HPI - General Chief Complaint: ED Shortness of Breath/Dyspnea Stated Complaint: "sob,low pulse" Time Seen by Provider: 05/17/18 19:10 Source: patient Mode of arrival: ambulatory Limitations: no limitations Nursing Notes Reviewed: Yes Vital Signs Reviewed: Yes - History of Present Illness 77-year-old male with history of COPD, atrial fibrillation, hypertension, arrives to the emergency department complaining of combined shortness of breath and low pulse. The patient states this is ongoing intermittently over the past 30 days. The patient states that it acutely worsened over the course of today. The patient states his heart rate is been in the 40s to 50s. He denies any associated hypotension. The patient denies any other complaints at this time. The patient is on warfarin for history of DVT in his left lower extremity. He states he has been taking as prescribed. He denies any chest pain at this time. He is resting comfortably in the room. Heart rate is radiating from the 40s to 50s in the room on the monitor. EKG demonstrates possible third-degree heart block. - Related Data Home Medications Medication Instructions Recorded Confirmed Acetylcysteine 600 mg PO TIDAC 05/17/18 05/17/18 [B-Ydqfjn-l-Cysteine] Amitriptyline HCl 100 mg PO DAILY 05/17/18 05/17/18 Aspirin [Ecotrin] 325 mg PO DAILY 05/17/18 05/17/18 Atorvastatin Calcium [Lipitor] 20 mg PO HS 05/17/18 05/17/18 FLUoxetine HCl [PROzac] 20 mg PO DAILY 05/17/18 05/17/18 Finasteride [Proscar] 5 mg PO DAILY 05/17/18 05/17/18 Fish Oil/Dha/Epa [Fish Oil 1,200 1 cap PO DAILY 05/17/18 05/17/18 mg Fish Oil] Fluticasone Propionate Nasal 1 spr NS DAILY 05/17/18 05/17/18 [Flonase] Fluticasone/Salmeterol [Advair Hfa 1 puff IH DAILY 05/17/18 05/17/18 230-21 Mcg Inhaler] Furosemide [Lasix] 20 mg PO DAILY 05/17/18 05/17/18 Gabapentin [Neurontin] 600 mg PO TID 05/17/18 05/17/18 Levothyroxine [Synthroid] [place] [address]/17/18 05/17/18 Lisinopril [Zestril] 10 mg PO DAILY 05/17/18 05/17/18 Loratadine [Claritin] 10 mg PO DAILY 05/17/18 05/17/18 Lutein 20 mg PO DAILY 05/17/18 05/17/18 Metformin HCl [Glucophage] 1,000 mg PO BID 05/17/18 05/17/18 Metoprolol [Lopressor] 25 mg PO BID 05/17/18 05/17/18 Pioglitazone [Actos] 15 mg PO DAILY 05/17/18 05/17/18 SitaGLIPtin [Januvia] 100 mg PO DAILY 05/17/18 05/17/18 Umeclidinium [place] [Incruse 62.5 mcg IH DAILY 05/17/18 05/17/18 Ellipta] Vit A/Vit C/Vit E/Zinc/Copper 1 tab PO DAILY 05/17/18 05/17/18 [Preservision Areds Tablet] Warfarin [Coumadin] 6 mg PO SUMOTUWEFRSA 05/17/18 05/17/18 Warfarin [Coumadin] 9 mg PO TH 05/17/18 05/17/18 Allergies Allergy/AdvReac Type Severity Reaction Status Date / Time No Known Allergies Allergy Verified 05/17/18 20:27 All systems ED: reviewed and negative except as stated. Constitutional: Denies: fever, chills, weakness ENT ED: Denies: congestion Cardiovascular: Reports: dyspnea on exertion, edema. Denies: chest pain, palpitations, orthopnea, syncope Respiratory: Reports: dyspnea. Denies: cough, wheezes, sputum production Gastrointestinal: Denies: abdominal pain, nausea Genitourinary: Denies: urgency Musculoskeletal: Denies: back pain Integumentary: Denies: rash Neurological: Denies: headache Past Medical History - Past Medical History Attestation: Yes The following information was validated with the patient. Source: patient, old records reviewed Medical history: Reports: arthritis, COPD, diabetes, GERD, hyperlipidemia, hypertension, thyroid disease, other Psychiatric history: Reports: no psych history - Social History Smoking Status: Former smoker Smokeless Tobacco Status: No Alcohol use: Reports: none Drug use: Reports: none Physical Exam - General Limitations: no limitations General appearance: alert, in no apparent distress - Head Head exam: atraumatic, normocephalic, normal inspection - Eye Eye exam: Present: normal appearance, PERRL, EOMI - ENT ENT exam: normal exam, normal oropharynx, mucous membranes moist - Neck Neck exam: Present: normal inspection, full ROM, trachea midline - Chest Chest inspection: Present: normal inspection, symmetric chest wall rise - Respiratory Respiratory exam: Present: normal lung sounds bilaterally - Cardiovascular Cardiovascular exam: Present: normal rhythm, bradycardia, normal heart sounds - Abdominal Exam Abdominal exam: Present: soft, Non-Tender. Absent: tenderness, distention, guarding, rebound, rigidity - Extremities Exam Extremities exam: Present: full ROM, pedal edema (2+), other (Chronic venous stasis). Absent: tenderness - Neurological Exam Neurological exam: Present: alert, oriented X3 - Skin Skin exam: Present: warm, dry, intact, normal color Course Vital Signs Temperature 98.3 F 05/17/18 18:18 Pulse Rate 43 05/17/18 18:18 Respiratory Rate 22 05/17/18 18:18 Blood Pressure 181/120 05/17/18 18:18 O2 Sat by Pulse Oximetry 93 05/17/18 18:18 Temperature 98.3 F 05/17/18 18:25 Pulse Rate 50 05/17/18 20:31 Respiratory Rate 20 05/17/18 20:31 Blood Pressure 152/66 05/17/18 20:31 O2 Sat by Pulse Oximetry 94 05/17/18 20:31 Oxygen Delivery Oxygen Delivery Nasal Cannula Shortness of Breath/Dyspnea - MDM Narrative Medical decision making narrative: Patient's workup in the emergency department demonstrates findings concerning for third-degree heart block. The patient's blood pressure stable and he is having no syncope. We spoke to Dr. West in cardiology who recommended holding the patient's metoprolol and he was see the patient. We will place a consult. The patient's troponin is negative. No hypotension or syncope noted. The patient is resting comfortably in the room. Accepted by Dr. West. - Lab Data Lab results reviewed: Yes I reviewed the patient's lab results. Result diagrams: 05/17/18 19:27 05/17/18 19:27 Lab Results 05/17/18 05/17/18 05/17/18 Range/Units 19:27 19: 19:27 WBC 11.9 H (4.3-11.1) K/mcL RBC 3.90 L (4.19-5.50) M/mcL Hgb 11.5 L (12.9-16.9) g/dL Hct 36.1 L (37.5-50.1) % MCV 92.6 (83.0-100.0) fL MCH 29.5 (28.0-33.3) pg MCHC 31.9 (31.6-35.5) g/dL RDW 16.1 H (11.5-14.5) % Plt Count 259 (140-400) K/mcL MPV 9.9 (9.4-12.4) fL Immature Gran % 0.3 (0-4) % Seg Neutrophils % 72.9 % Lymphocytes % 16.3 % Monocytes % 9.8 % Eosinophils % 0.3 % Basophils % 0.4 % Neutrophils # 8.7 (1.6-8.9) K/mcL Lymphocytes # 1.9 (0.6-4.6) K/mcL Monocytes # 1.2 (0.0-1.3) K/mcL Eosinophils # 0.0 (0.0-0.6) K/mcL Basophils # 0.1 (0.0-0.2) K/mcL PT 32.1 H (9.4-12.1) Seconds INR 2.8 APTT 45.7 H (26.0-36.0) Seconds Sodium 139 (136-145) mEq/L Potassium 4.6 (3.5-5.1) mEq/L Chloride 107 (98-107) mEq/L Carbon Dioxide 24 (23-29) mEq/L BUN 17 (8-23) mg/dL Creatinine 1.21 (0.70-1.30) mg/dL Est GFR ( Amer) > 60 (> 60) Est GFR (Non-Af Amer) 58 L (> 60) BUN/Creatinine Ratio 14 (6-26) Glucose 189 H (70-105) mg/dL Calculated Osmolality 295 (280-300) Calcium 8.8 (8.6-10.3) mg/dL Troponin I < 0.03 (< 0.04) ng/mL - Radiology Data Radiology results reviewed: Yes I reviewed the patient's radiology results. Chest X-Ray 05/17/18 19:10 IMPRESSION: Cardiomegaly with findings of acute congestive heart failure. D/ / Donovan Magaña / Donovan Magaña Interpreting Provider: Donovan Magaña - EKG Data EKG attestation: Yes I reviewed and interpreted this EKG. EKG results narrative: Heart rate 65 beats for minute. Third degree heart block noted with regular unifocal PVCs. No ST elevation or ST depression noted.
[2018-05-17 19:35] LABS: Eosinophils % 0.3 %; Hematocrit 36.1 % (37.5-50.1); Hemoglobin 11.5 g/dL (12.9-16.9); Immature Granulocytes % 0.3 % (0-4); Lymphocytes % 16.3 %; Mean Corpuscular HGB Conc 31.9 g/dL (31.6-35.5); Mean Corpuscular Hemoglobin 29.5 pg (28.0-33.3); Mean Corpuscular Volume 92.6 fL (83.0-100.0); Mean Platelet Volume 9.9 fL (9.4-12.4); Monocytes % 9.8 %; Platelet Count 259 K/mcL (140-400); Red Cell Distribution Width 16.1 % (11.5-14.5); Segmented Neutrophils % 72.9 %
[2018-05-17 19:36] LABS: Basophils # 0.1 K/mcL (0.0-0.2); Basophils % 0.4 %; Lymphocytes # 1.9 K/mcL (0.6-4.6); Monocytes # 1.2 K/mcL (0.0-1.3); Neutrophils # 8.7 K/mcL (1.6-8.9)
[2018-05-17 19:44] LABS: INR 2.8; Prothrombin Time 32.1 Seconds (9.4-12.1)
[2018-05-17 19:47] LABS: Activated Partial Thrombo Time 45.7 Seconds (26.0-36.0)
[2018-05-17 19:56] LABS: BUN/Creatinine Ratio 14 (6-26); Blood Urea Nitrogen 17 mg/dL (8-23); Calcium 8.8 mg/dL (8.6-10.3); Carbon Dioxide 24 mEq/L (23-29); Chloride 107 mEq/L (98-107); Glucose 189 mg/dL (70-105); Osmolality,Calculated 295 (280-300); Potassium 4.6 mEq/L (3.5-5.1); Sodium 139 mEq/L (136-145); eGFR For African Americans > 60 (> 60); eGFR For Non-African Americans 58 (> 60)
[2018-05-17 19:57] LABS: Troponin I < 0.03 ng/mL (< 0.04)
--- NOTE | 2018-05-17 21:09 | Emergency Department Note ---
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 Diabetes mellitus complication status: with unspecified complications Qualified Code(s): E11.8 - Type 2 diabetes mellitus with unspecified complications Disposition: Admitted As Inpatient Condition: Undetermined General Adult HPI - General Chief complaint: ED Shortness of Breath/Dyspnea Stated complaint: "sob,low pulse" Time Seen by Provider: 05/17/18 19:10 Source: patient Mode of arrival: ambulatory Limitations: no limitations - History of Present Illness Pain Scale: 0 - Related Data Home Medications Medication Instructions Recorded Confirmed Acetylcysteine 600 mg PO TIDAC 05/17/18 05/17/18 [J-Oleojp-z-Cysteine] Amitriptyline HCl 100 mg PO DAILY 05/17/18 05/17/18 Aspirin [Ecotrin] 325 mg PO DAILY 05/17/18 05/17/18 Atorvastatin Calcium [Lipitor] 20 mg PO HS 05/17/18 05/17/18 FLUoxetine HCl [PROzac] 20 mg PO DAILY 05/17/18 05/17/18 Finasteride [Proscar] 5 mg PO DAILY 05/17/18 05/17/18 Fish Oil/Dha/Epa [Fish Oil 1,200 1 cap PO DAILY 05/17/18 05/17/18 mg Fish Oil] Fluticasone Propionate Nasal 1 spr NS DAILY 05/17/18 05/17/18 [Flonase] Fluticasone/Salmeterol [Advair Hfa 1 puff IH DAILY 05/17/18 05/17/18 230-21 Mcg Inhaler] Furosemide [Lasix] 20 mg PO DAILY 05/17/18 05/17/18 Gabapentin [Neurontin] 600 mg PO TID 05/17/18 05/17/18 Levothyroxine [Synthroid] [place] [address]/17/18 05/17/18 Lisinopril [Zestril] 10 mg PO DAILY 05/17/18 05/17/18 Loratadine [Claritin] 10 mg PO DAILY 05/17/18 05/17/18 Lutein 20 mg PO DAILY 05/17/18 05/17/18 Metformin HCl [Glucophage] 1,000 mg PO BID 05/17/18 05/17/18 Metoprolol [Lopressor] 25 mg PO BID 05/17/18 05/17/18 Pioglitazone [Actos] 15 mg PO DAILY 05/17/18 05/17/18 SitaGLIPtin [Januvia] 100 mg PO DAILY 05/17/18 05/17/18 Umeclidinium [place] [Incruse 62.5 mcg IH DAILY 05/17/18 05/17/18 Ellipta] Vit A/Vit C/Vit E/Zinc/Copper 1 tab PO DAILY 05/17/18 05/17/18 [Preservision Areds Tablet] Warfarin [Coumadin] 6 mg PO SUMOTUWEFRSA 05/17/18 05/17/18 Warfarin [Coumadin] 9 mg PO TH 05/17/18 05/17/18 Allergies Allergy/AdvReac Type Severity Reaction Status Date / Time No Known Allergies Allergy Verified 05/17/18 20:27 Constitutional: Denies: fever, chills, weakness ENT ED: Denies: congestion Cardiovascular: Reports: dyspnea on exertion, edema. Denies: chest pain, palpitations, orthopnea, syncope Respiratory: Reports: dyspnea. Denies: cough, wheezes, sputum production Gastrointestinal: Denies: abdominal pain, nausea Genitourinary: Denies: urgency Musculoskeletal: Denies: back pain Integumentary: Denies: rash Neurological: Denies: headache Past Medical History - Past Medical History Medical history: Reports: arthritis, COPD, diabetes, GERD, hyperlipidemia, hypertension, thyroid disease, other Psychiatric history: Reports: no psych history - Social History Smoking Status: Former smoker Smokeless Tobacco Status: No Alcohol use: Reports: none Drug use: Reports: none Physical Exam - General Limitations: no limitations General appearance: alert, in no apparent distress Course - Reevaluation(s) Reevaluation #1: Attestation note I examined this patient and my medical decision-making was reviewed with the emergency medicine resident. I agree with the documented findings, disposition and treatment plan as described except to the extent set forth below. Patient seen with emergency medicine resident Dr. Natanael Hamm, Please see a copy of his note for details of the H&P, ED evaluation, management and disposition. I have independently evaluated the patient and confirmed appropriate portions of the history and physical exam. Briefly: 77-year-old male sent from his physician for slightly low pulse. 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 Patient is hemodynamically stable he is awake and alert. Lab values were essentially within normal limits patient is been admitted Time: 21:08 Vital Signs Temperature 98.3 F 05/17/18 18:18 Pulse Rate 43 05/17/18 18:18 Respiratory Rate 22 05/17/18 18:18 Blood Pressure 181/120 05/17/18 18:18 O2 Sat by Pulse Oximetry 93 05/17/18 18:18 Temperature 98.3 F 05/17/18 18:25 Pulse Rate 50 05/17/18 20:31 Respiratory Rate 16 05/17/18 21:06 Blood Pressure 150/60 05/17/18 21:06 O2 Sat by Pulse Oximetry 94 05/17/18 20:31 Oxygen Delivery Oxygen Delivery Nasal Cannula Medical Decision Making - Lab Data Result diagrams: 05/17/18 19:27 05/17/18 19:27 Lab Results 05/17/18 05/17/18 05/17/18 Range/Units 19:27 19:27 19:27 WBC 11.9 H (4.3-11.1) K/mcL RBC 3.90 L (4.19-5.50) M/mcL Hgb 11.5 L (12.9-16.9) g/dL Hct 36.1 L (37.5-50.1) % MCV 92.6 (83.0-100.0) fL MCH 29.5 (28.0-33.3) pg MCHC 31.9 (31.6-35.5) g/dL RDW 16.1 H (11.5-14.5) % Plt Count 259 (140-400) K/mcL MPV 9.9 (9.4-12.4) fL Immature Gran % 0.3 (0-4) % Seg Neutrophils % 72.9 % Lymphocytes % 16.3 % Monocytes % 9.8 % Eosinophils % 0.3 % Basophils % 0.4 % Neutrophils # 8.7 (1.6-8.9) K/mcL Lymphocytes # 1.9 (0.6-4.6) K/mcL Monocytes # 1.2 (0.0-1.3) K/mcL Eosinophils # 0.0 (0.0-0.6) K/mcL Basophils # 0.1 (0.0-0.2) K/mcL PT 32.1 H (9.4-12.1) Seconds INR 2.8 APTT 45.7 H (26.0-36.0) Seconds Sodium 139 (136-145) mEq/L Potassium 4.6 (3.5-5.1) mEq/L Chloride 107 (98-107) mEq/L Carbon Dioxide 24 (23-29) mEq/L BUN 17 (8-23) mg/dL Creatinine 1.21 (0.70-1.30) mg/dL Est GFR ( Amer) > 60 (> 60) Est GFR (Non-Af Amer) 58 L (> 60) BUN/Creatinine Ratio 14 (6-26) Glucose 189 H (70-105) mg/dL Calculated Osmolality 295 (280-300) Calcium 8.8 (8.6-10.3) mg/dL Troponin I < 0.03 (< 0.04) ng/mL
[2018-05-17] MEDS ORDERED: Naloxone 0.4 MG/ML INJ IVP PRN (21:44)
[2018-05-17] MEDS ORDERED: Acetaminophen 325 MG TABLET PO PRN (21:46)
--- NOTE | 2018-05-17 21:58 | Internal Med History&Physical ---
Date of Encounter: 05/17/18 Time of Encounter: 21:26 Internal Medicine - H&P: HPI Chief complaint: low heart rate Admitted From: Home Plans for Post Hospital Care: Home History of present illness: Mr. Doe is a 77 year old male with past medical history of hypertension, diabetes, A. fib on Coumadin, history of DVT, and COPD 3 L dependent who presented to the ED for shortness of breath and bradycardia. Patient states that he checks his oxygen level every morning and his pulse and his heart rate this morning was in the 40s. He has had associated dizziness over the past week but denies syncope, palpitations, chest pain. The last month he has had associated worsening shortness of breath with productive cough denies fever, rhinorrhea, or hemoptysis. He was going to go see the healthcare liaison Dr. Calvert for his afib but appointment was cancelled twice. Upon arrival to the ED, patient's HR 43, blood pressure of 181/120, Respiratory rate 22 on room air and vitals remained stable throughout ED stay. Laboratory values showed white blood cell count 11.9, hemoglobin 11.5 (baseline), Tropononin < 0.03, and INR 2.8. Chest x-ray showed cardiomegaly. EKG demonstrates possible third-degree heart block. Dr. West was called and accepted consult and recommended holding patient's metoprolol. No medications were given in the ED. Patient was stable and admitted to the floor for third- degree heart block. Past Med Surg Social Fam HX - Past Medical History Medical history: arthritis, COPD, diabetes, GERD, hyperlipidemia, hypertension, thyroid disease, other Psychiatric history: no psych history - Past Surgical History Additional surgical history: Gallbladder, bilateral knee replacement, Appendectomy, Right shoulder. - Social History Smoking Status: Former smoker Smokeless Tobacco Status: No Alcohol use: none Drug use: none - Family History Father Adopted: No Family Member Ethnicity: Non- Living Status: Hx Family Cardiac Disorders: No Hx Family Respiratory Disorders: Yes (Asbestosis) Hx Family Cancer: Yes (Lung CA) Hx Family GI Disorders: No Hx Family Endocrine Disorder: No Hx Family Neuromuscular Disorders: No Hx Family Neurologic Disorders: No Hx Family HEENT Disorders: No Hx Family Autoimmune Disorders: No Internal Medicine - H&P: Meds Acetylcysteine [J-Eekxls-n-Cysteine] 600 mg PO TIDAC 06/28/18 [History] Amitriptyline HCl 100 mg PO DAILY 05/17/18 [History] Aspirin [Ecotrin] 325 mg PO DAILY 05/17/18 [History] Atorvastatin Calcium [Lipitor] 20 mg PO HS 05/17/18 [History] FLUoxetine HCl [PROzac] 20 mg PO DAILY 05/17/18 [History] Finasteride [Proscar] 5 mg PO DAILY 05/17/18 [History] Fish Oil/Dha/Epa [Fish Oil 1,200 mg Fish Oil] 1 cap PO DAILY 05/17/18 [History] Fluticasone Propionate Nasal [Flonase] 1 spr NS DAILY 05/17/18 [History] Fluticasone/Salmeterol [Advair Hfa 230-21 Mcg Inhaler] 1 puff IH DAILY 05/17/18 [History] Furosemide [Lasix] 20 mg PO DAILY 05/17/18 [History] Gabapentin [Neurontin] 600 mg PO TID 05/17/18 [History] Levothyroxine [Synthroid] [place] [address]/17/18 [History] Lisinopril [Zestril] 10 mg PO DAILY 05/17/18 [History] Loratadine [Claritin] 10 mg PO DAILY 05/17/18 [History] Lutein 20 mg PO DAILY 05/17/18 [History] Metformin HCl [Glucophage] 1,000 mg PO BID 05/17/18 [History] Metoprolol [Lopressor] 25 mg PO BID 05/17/18 [History] Pioglitazone [Actos] 15 mg PO DAILY 05/17/18 [History] SitaGLIPtin [Januvia] 100 mg PO DAILY 05/17/18 [History] Umeclidinium [place] [Incruse Ellipta] 62.5 mcg IH DAILY 05/17/18 [History] Vit A/Vit C/Vit E/Zinc/Copper [Preservision Areds Tablet] 1 tab PO DAILY [History] Warfarin [Coumadin] 6 mg PO SUMOTUWEFRSA 05/17/18 [History] Warfarin [Coumadin] 9 mg PO TH 05/17/18 [History] 3 Allergy/AdvReac Type Severity Reaction Status Date / Time No Known Allergies Allergy Verified 05/17/18 20:27 All Systems PM: A 10-system review of systems was performed and is negative for pertinent findings except as documented above in the HPI. - Constitutional Vitals: Temp Pulse Resp BP Pulse Ox 98.3 F 50 16 150/60 94 05/17/18 18:25 05/17/18 20:31 05/17/18 21:06 05/17/18 21:06 05/17/18 20:31 Exam: Constitutional: Alert, in no acute distress Head: Normocephalic, atraumatic Heart: bradycardia, Normal, regular rhythm, no murmurs Lungs: Clear to auscultation, no wheezes, rales, or rhonchi Abdomen: Soft, nondistended, nontender, no guarding or rigidity. Extremities: bilateral lower extremity venous stasis changes, redness on left lower leg, +1 pitting edema, radial pulse +2/4, capillary refill <2sec. Skin: Skin warm and dry, no lesions, no rashes, no jaundice Neurologic: Cranial nerves II through XII grossly intact, strength 5/5 in all extremities Psych: Cooperative with exam, good eye contact, cognitive function intact, speech clear, thought process logical, and goal directed Internal Med - H&P Results - Labs CBC & Chem 7: 05/17/18 19:27 05/17/18 19:27 - Assessment and plan (1) Third degree heart block Current Visit: Yes Status: Acute Assessment and plan: EKG shows third-degree heart block. Cardiology was consult and recommended stopping metoprolol. Patient's vitals are currently stable. Plan: - holding metoprolol - cardiology consulted, awaiting recommendations for pacemaker - continue telemetry - echo pending - holding coumadin for procedure tomorrow, INR 2.8 - Diet: NPO after midnight (2) COPD (chronic obstructive pulmonary disease) Current Visit: Yes Status: Chronic Assessment and plan: CXR negative for pneumonia. Patient is not requiring more oxygen than at home. Do not believe patient is having a COPD exacerbation. Duonebs Q4H prn, Q6H jade. Qualifiers: COPD type: chronic bronchitis Chronic bronchitis type: unspecified Qualified Code(s): J42 - Unspecified chronic bronchitis (3) Diabetes mellitus Current Visit: Yes Status: Chronic Assessment and plan: Patient not on Lantus. Holding home meds. 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 Holding metoprolol. Qualifiers: Atrial fibrillation type: paroxysmal Qualified Code(s): I48.0 - Paroxysmal atrial fibrillation (5) HTN (hypertension) Current Visit: No Status: Chronic Assessment and plan: Currently hypertensive, possibly 2/2 holding his metoprolol. Hydralazine prn Q6H systolic BP> 160. Qualifiers: Hypertension type: essential hypertension Qualified Code(s): I10 - Essential (primary) hypertension (6) DVT prophylaxis Current Visit: Yes Status: Acute Assessment and plan: Holding Coumadin for pacemaker proceedure tomorrow but patient is currently therapeutic. ICDs. - Time Spent With Patient Total time spent is greater than 50% in coordination of care (as documented) at patient's floor/unit and/or counseling patient:
[2018-05-17] MEDS ORDERED: Ipratropium/Albuterol Neb 3 ML IH PRN (22:20)
[2018-05-17] MEDS: Gabapentin 300 MG CAPSULE PO SCH (23:29)
[2018-05-17] MEDS: *HR* Acetylcysteine 20% 600 MG/3 ML ORAL SYRINGE PO SCH (23:29)
[2018-05-18] MEDS: Ipratropium/Albuterol Neb 3 ML IH SCH ×7 (01:52→23:30)
[2018-05-18 04:08] LABS: Hematocrit 36.3 % (37.5-50.1); Hemoglobin 11.5 g/dL (12.9-16.9); Mean Corpuscular HGB Conc 31.7 g/dL (31.6-35.5); Mean Corpuscular Hemoglobin 29.3 pg (28.0-33.3); Mean Corpuscular Volume 92.4 fL (83.0-100.0); Mean Platelet Volume 10.2 fL (9.4-12.4); Platelet Count 268 K/mcL (140-400); Red Blood Count 3.93 M/mcL (4.19-5.50)
[2018-05-18 04:15] LABS: INR 2.6; Prothrombin Time 29.6 Seconds (9.4-12.1)
[2018-05-18 04:32] LABS: BUN/Creatinine Ratio 14 (6-26); Blood Urea Nitrogen 17 mg/dL (8-23); Calcium 8.7 mg/dL (8.6-10.3); Carbon Dioxide 24 mEq/L (23-29); Chloride 107 mEq/L (98-107); Glucose 195 mg/dL (70-105); Magnesium 1.9 mg/dL (1.6-2.6); Osmolality,Calculated 293 (280-300); Phosphorous 2.2 mg/dL (2.7-4.5); Potassium 4.4 mEq/L (3.5-5.1); Sodium 138 mEq/L (136-145); eGFR For African Americans > 60 (> 60); eGFR For Non-African Americans 56 (> 60)
[2018-05-18] MEDS ORDERED: Aspirin Enteric Coated 325 MG Tablet PO SCH (09:00)
[2018-05-18] MEDS ORDERED: FLUoxetine 20 MG CAPSULE PO SCH (09:00)
[2018-05-18] MEDS ORDERED: Finasteride 5 MG TABLET PO SCH (09:00)
[2018-05-18] MEDS ORDERED: Loratadine 10 MG TABLET PO SCH (09:00)
[2018-05-18] MEDS ORDERED: Furosemide 20 MG TABLET PO SCH (09:00)
[2018-05-18] MEDS ORDERED: Fluticasone Propionate Nasal 50 MCG/SPRAY BOTTLE NS SCH (09:00)
[2018-05-18] MEDS ORDERED: Perflutren Lipid Microsphere 1.3 ML in 0.9 % Sodium Chloride 8.7 ML IVP ONE (09:38)
[2018-05-18] MEDS ORDERED: Perflutren Lipid Microsphere 2 ML VIAL ONE (09:41)
--- NOTE | 2018-05-18 09:52 | Cardiology Consult Note ---
<Ba Mohr Stephany - Last Filed: 05/18/18 09:53> Date of Encounter: 05/18/18 Time of Encounter: 09:45 Assessment and Plan (1) Third degree heart block Current Visit: Yes Status: Acute EKG shows CHB, HR 65 bpm. B/p are stable. Noted to be hypotensive. C/o fatigue, mild SOB, and dizziness at times for one month. Noted HR decreased at home for the past week. Lopressor held on admission. TTE ordered. TTE 11/2016-LVEF 55-60%. Normal LV chamber size, wall thickness and function. Moderate left ventricular diastolic dysfunction. Right ventricle was not well visualized. Grossly, it demonstrates normal function. Unable to estimate RVSP due to lack of TR jet. Mild pulmonic regurgitation. Permanent cardiac pacemaker placement is recommended. Indication, benefits, and adverse events reviewed. Patient agrees to proceed. Will plan on scheduling later today. (2) Atrial fibrillation Current Visit: No Status: Acute H/o PAF. On coumadin. INR 2.6 today. Hold coumadin today. Qualifiers: Atrial fibrillation type: paroxysmal Qualified Code(s): I48.0 - Paroxysmal atrial fibrillation Discussion w patient/family: The assessment and plan as outlined above was discussed with the patient and/or family members who expressed understanding and agreement. All questions were answered. Thank you for involving us in the care of your patient. Please call with any questions. History of Present Illness Consult date: 05/18/18 Requesting physician: Elizabeth Alvarez Consult reason: Complete heart block Chief complaint: fatigue, dizziness, low pulse rate History of present illness: Mr. Doe is a 77 year old male with past medical history of atrial fibrillation on coumadin, HTN, HLD, PAD, obesity, COPD on home O2, and thyroid disease who presents with c/o low pulse rate and fatigue. C/o increased fatigue , SOB with activity, dizziness, and lightheadedness over the last month. He denies chest pain or palpitatins. Denies orthopnea, PND, or edema. states that they noticed a low pulse rate over the past week in the 40's. EKG on admission showed CHB with PVC. HR 65 bpm. He is noted to be hypotensive. Past Med Surg Social Fam HX - Past Medical History Medical history: arthritis, atrial fibrillation, COPD, diabetes, GERD, hyperlipidemia, hypertension, thyroid disease, other Additional medical history: Hypothyroid. Sleep apnea Psychiatric history: no psych history - Past Surgical History Surgical History: cholecystectomy, knee replacement, orthopedic, other Additional surgical history: Gallbladder, bilateral knee replacement, Appendectomy, Right shoulder. - Social History Smoking Status: Former smoker Smokeless Tobacco Status: No Alcohol use: none Drug use: none - Family History Father Adopted: No Family Member Ethnicity: Non- Living Status: Hx Family Cardiac Disorders: No Hx Family Respiratory Disorders: Yes (Asbestosis) Hx Family Cancer: Yes (Lung CA) Hx Family GI Disorders: No Hx Family Endocrine Disorder: No Hx Family Neuromuscular Disorders: No Hx Family Neurologic Disorders: No Hx Family HEENT Disorders: No Hx Family Autoimmune Disorders: No Medications and Allergies Acetylcysteine [N-Upiyoy-l-Cysteine] 600 mg PO TIDAC 05/17/18 [History] Amitriptyline HCl 100 mg PO DAILY 05/17/18 [History] Aspirin [Ecotrin] 325 mg PO DAILY 05/17/18 [History] Atorvastatin Calcium [Lipitor] 20 mg PO HS 05/17/18 [History] FLUoxetine HCl [PROzac] 20 mg PO DAILY 05/17/18 [History] Finasteride [Proscar] 5 mg PO DAILY 05/17/18 [History] Fish Oil/Dha/Epa [Fish Oil 1,200 mg Fish Oil] 1 cap PO DAILY 05/17/18 [History] Fluticasone Propionate Nasal [Flonase] 1 spr NS DAILY 05/17/18 [History] Fluticasone/Salmeterol [Advair Hfa 230-21 Mcg Inhaler] 1 puff IH DAILY 05/17/18 [History] Furosemide [Lasix] 20 mg PO DAILY 05/17/18 [History] Gabapentin [Neurontin] 600 mg PO TID 05/17/18 [History] Levothyroxine [Synthroid] 125 mcg PO 0630 05/17/18 [History] Lisinopril [Zestril] 10 mg PO DAILY 05/17/18 [History] Loratadine [Claritin] 10 mg PO DAILY 05/17/18 [History] Lutein 20 mg PO DAILY 05/17/18 [History] Metformin HCl [Glucophage] 1,000 mg PO BID 05/17/18 [History] Metoprolol [Lopressor] 25 mg PO BID 05/17/18 [History] Pioglitazone [Actos] 15 mg PO DAILY 05/17/18 [History] SitaGLIPtin [Januvia] 100 mg PO DAILY 05/17/18 [History] Umeclidinium [place] [Incruse Ellipta] 62.5 mcg IH DAILY 05/17/18 [History] Vit A/Vit C/Vit E/Zinc/Copper [Preservision Areds Tablet] 1 tab PO DAILY [History] Warfarin [Coumadin] 6 mg PO [id number] 05/17/18 [History] Warfarin [Coumadin] 9 mg PO TH 05/17/18 [History] 3 Allergy/AdvReac Type Severity Reaction Status Date / Time No Known Allergies Allergy Verified 05/17/18 20:27 All Systems Review: The remainder of the systems were reviewed and are negative Physical Examination Vital Signs, Last 4 Hours Temp Pulse Resp BP Pulse Ox 05/18/18 09:00 93 05/18/18 07:50 16 93 05/18/18 07:31 98.3 F 63 16 172/63 96 General: Conversant, No Apparent Distress, Other (obese male) HEENT: Atraumatic, Normocephaly, Mucus Membranes Moist Neck: No JVD, Normal carotid pulses Cardiac: Reg Rate and Rhythm, Normal S1 and S2, No Murmur Lungs: Normal Breath Sounds, No Wheeze, Rales, Rhonchi Neuro: Alert and responsive, No focal deficits noted Abdomen: Soft, Non-Tender Skin: No rashes noted on visualized skin Musculoskeletal: No Chest Wall Tenderness Extremities: No Clubbing, No Cyanosis, Normal Pulses, Other (trace BLE edema. Redness LLE with scaling. ) Results 05/18/18 03:53 05/18/18 03:53 Lab Results 05/18/18 05/18/18 05/18/18 03:53 03:53 03:53 WBC 13.1 H Hgb 11.5 L Hct 36.3 L Plt Count 268 INR 2.6 Sodium 138 Potassium 4.4 Chloride 107 Carbon Dioxide 24 BUN 17 Creatinine 1.25 Glucose 195 H Calcium 8.7 Magnesium 1.9 - Imaging and Cardiology Echo: report reviewed - EKG Interpretation EKG results cardiology: personally reviewed Consult Discharge Plan - Plan Referrals: Shayy Rodgers MD [Primary Care Provider] - <Homero Meyer - Last Filed: 05/18/18 10:47> Date of Encounter: 05/18/18 - Attending Attestation I have personally performed a face to face evaluation on this patient. I have reviewed and agree with the care plan. History and Exam by me shows: Presents with complete heart block, LV function normal on previous echo. Discussed risks and benefits of pacemaker, he agrees to proceed. Assessment and Plan Discussion w patient/family: The assessment and plan as outlined above was discussed with the patient and/or family members who expressed understanding and agreement. All questions were answered. Thank you for involving us in the care of your patient. Please call with any questions. History of Present Illness History of present illness: Mr. Doe is a 77 year old male All Systems Review: The remainder of the systems were reviewed and are negative Physical Examination Vital Signs, Last 4 Hours Temp Pulse Resp BP Pulse Ox 05/18/18 09:00 93 05/18/18 07:50 16 93 05/18/18 07:31 98.3 F 63 16 172/63 96 Results 05/18/18 03:53 05/18/18 03:53 Lab Results 05/18/18 05/18/18 05/18/18 03:53 03:53 03:53 WBC 13.1 H Hgb 11.5 L Hct 36.3 L Plt Count 268 INR 2.6 Sodium 138 Potassium 4.4 Chloride 107 Carbon Dioxide 24 BUN 17 Creatinine 1.25 Glucose 195 H Calcium 8.7 Magnesium 1.9
[2018-05-18] MEDS ORDERED: CeFAZolin Syr 3,000MG/30 ML 3,000 MG/30 ML SYRINGE IVPB ONE (10:14)
--- NOTE | 2018-05-18 10:44 | Internal Med Progress Note ---
<Sabrina Fonseca - Last Filed: 05/18/18 10:42> Date of Encounter: 05/18/18 Time of Encounter: 10:42 - Assessment and plan (1) Third degree heart block Current Visit: Yes Status: Acute Assessment and plan: EKG shows third-degree heart block. Cardiology was consulted Plan: - holding metoprolol - cardiology consulted - continue telemetry - echo pending - holding coumadin NPO for possible pacemaker placement (2) Diabetes mellitus Current Visit: Yes Status: Chronic Assessment and plan: - low sliding scale - Accu checks Q6H while NPO Qualifiers: Diabetes mellitus type: type 2 Diabetes mellitus nursing home insulin use: unspecified nursing home insulin use status Diabetes mellitus complication status : with unspecified complications Qualified Code(s): E11.8 - Type 2 diabetes mellitus with unspecified complications (3) HTN (hypertension) Current Visit: Yes Status: Chronic Assessment and plan: Holding metoprolol per cardiology Hydralazine prn Q6H systolic BP> 160. Qualifiers: Hypertension type: essential hypertension Qualified Code(s): I10 - Essential (primary) hypertension (4) Atrial fibrillation Current Visit: Yes Status: Chronic Assessment and plan: Currently in sinus bradycardia with 3rd degree block. Holding metoprolol. Qualifiers: Atrial fibrillation type: paroxysmal Qualified Code(s): I48.0 - Paroxysmal atrial fibrillation (5) COPD (chronic obstructive pulmonary disease) Current Visit: Yes Status: Chronic Assessment and plan: CXR negative for pneumonia. Patient is not requiring more oxygen than at home. Do not believe patient is having a COPD exacerbation. Duonebs Q4H prn, Q6H jade. Qualifiers: COPD type: chronic bronchitis Chronic bronchitis type: unspecified Qualified Code(s): J42 - Unspecified chronic bronchitis (6) DVT prophylaxis Current Visit: Yes Status: Acute Assessment and plan: Holding Coumadin for pacemaker proceedure tomorrow but patient is currently therapeutic. ICDs. - Time Spent With Patient Total time spent is greater than 50% in coordination of care (as documented) at patient's floor/unit and/or counseling patient: - Subjective Interval history: Patient denies any chest pain or palpitations. Does state he has had increased shortness of breath for the past month but Has not acutely gotten worse over the past few days. Denies having any questions or concerns. States he is scheduled to have pacemaker placement at 11:30 today. - Constitutional Vitals: Temp Pulse Resp BP Pulse Ox 98.3 F 63 16 172/63 93 05/18/18 07:31 05/18/18 07:31 05/18/18 07:50 05/18/18 07:31 05/18/18 09:00 General appearance: Present: A&O X 3, no acute distress, answers questions appropriately - Head Head exam: Present: atraumatic, normocephalic - Respiratory Respiratory exam: Present: CTAB. Absent: accessory muscle use, rales, rhonchi, wheezes - Cardiovascular Cardiovascular exam: Present: bradycardia. Absent: diastolic murmur, gallop, rubs - GI/Abdominal GI/Abdominal exam: Present: normal bowel sounds, soft, no peritoneal signs. Absent: distended, tenderness - Extremities Exam Extremities exam: Present: warm. Absent: tenderness - Neurological Exam Neurological exam: Present: alert, oriented X3, no focal deficits Internal Medicine: Result - Labs CBC & Chem 7: 05/18/18 03:53 05/18/18 03:53 Labs: Short CBC 05/18/18 Range/Units 03:53 WBC 13.1 H (4.3-11.1) K/mcL Hgb 11.5 L (12.9-16.9) g/dL Hct 36.3 L (37.5-50.1) % Plt Count 268 (140-400) K/mcL BMP 05/18/18 03:53 Sodium 138 Potassium 4.4 Chloride 107 Carbon Dioxide 24 BUN 17 Creatinine 1.25 Glucose 195 H Calcium 8.7 - ABG Interpretation ABG results: PT/INR, D-dimer PT 29.6 Seconds (9.4-12.1) H 05/18/18 03:53 - VTE Documentation of Mechanical Device: Intermittent pneumatic compression device Consult Discharge Plan - Plan Referrals: Shayy Rodgers MD [Primary Care Provider] - <Maurilio Cee - Last Filed: 05/18/18 15:15> Date of Encounter: 05/18/18 - Assessment and plan (1) COPD (chronic obstructive pulmonary disease) Current Visit: Yes Status: Chronic Qualifiers: COPD type: chronic bronchitis Chronic bronchitis type: unspecified Qualified Code(s): J42 - Unspecified chronic bronchitis (2) Diabetes mellitus Current Visit: Yes Status: Chronic Qualifiers: Diabetes mellitus type: type 2 Diabetes mellitus nursing home insulin use: unspecified nursing home insulin use status Diabetes mellitus complication status : with unspecified complications Qualified Code(s): E11.8 - Type 2 diabetes mellitus with unspecified complications (3) HTN (hypertension) Current Visit: Yes Status: Chronic Qualifiers: Hypertension type: essential hypertension Qualified Code(s): I10 - Essential (primary) hypertension (4) Atrial fibrillation Current Visit: Yes Status: Chronic Qualifiers: Atrial fibrillation type: paroxysmal Qualified Code(s): I48.0 - Paroxysmal atrial fibrillation (5) Third degree heart block Current Visit: Yes Status: Acute (6) DVT prophylaxis Current Visit: Yes Status: Acute - Time Spent With Patient Total time spent is greater than 50% in coordination of care (as documented) at patient's floor/unit and/or counseling patient: - Constitutional Vitals: Temp Pulse Resp BP Pulse Ox 98.3 F 80 16 127/69 93 05/18/18 07:31 05/18/18 14:21 05/18/18 07:50 05/18/18 14:21 05/18/18 09:00 Internal Medicine: Result - Labs CBC & Chem 7: 05/18/18 03:53 05/18/18 03:53 Labs: Short CBC 05/18/18 Range/Units 03:53 WBC 13.1 H (4.3-11.1) K/mcL Hgb 11.5 L (12.9-16.9) g/dL Hct 36.3 L (37.5-50.1) % Plt Count 268 (140-400) K/mcL BMP 05/18/18 03:53 Sodium 138 Potassium 4.4 Chloride 107 Carbon Dioxide 24 BUN 17 Creatinine 1.25 Glucose 195 H Calcium 8.7 - ABG Interpretation ABG results: PT/INR, D-dimer PT 29.6 Seconds (9.4-12.1) H 05/18/18 03:53 - Impressions Impressions Chest X-Ray 05/18/18 13:22 IMPRESSION: No pneumothorax following placement of cardiac pacemaker on the left. [id number] pulmonary vascular congestion. Mild bibasilar atelectasis or small bilateral pleural effusions. D/ / Arsalan Tucker MD / Arsalan Tucker MD Interpreting Provider: Arsalan Tucker MD Echocardiogram 05/18/18 23:18 Impressions: LVEF 60%. Normal LV chamber size and function. Mild concentric left ventricular hypertrophy. Indeterminate diastolic function. Grossly, mildly dilated right ventricle with normal function. Mild aortic sclerosis suggested by Doppler. Mean gradient 9 mmHg. No evidence of pulmonary hypertension. RVSP not well obtained and could be underestimated. Cardiology service aware of rhythm. Left Ventricular Wall Motion: Rest Echo Findings All wall segments showed normal motion. Findings: Study Quality * Technically adequate exam. ECG Findings * Heart block, ventricular escape beats. Left Ventricle * LVEF 60%. * Normal LV chamber size and function. * Mild concentric left ventricular hypertrophy. * Indeterminate diastolic function. Right Ventricle * Grossly, mildly dilated right ventricle with normal function. Left Atrium * Moderately dilated left atrium. Right Atrium * Mildly dilated right atrium. Aortic Valve * Aortic valve not well visualized. * No aortic regurgitation. * Mild aortic sclerosis suggested by Doppler. Mean gradient 9 mmHg. Mitral Valve * Normal mitral valve structure and function. * No mitral regurgitation. * No mitral stenosis. Tricuspid Valve * Tricuspid valve not well visualized. * Trace tricuspid regurgitation. * No evidence of pulmonary hypertension. Pulmonic Valve * Pulmonic valve not well visualized. Aorta * Normally sized aortic root. Pericardium * The pericardium appears normal. IVC * The IVC is dilated. * > 50% respiratory change Pulmonary Artery * Pulmonary artery not well visualized. - Attending Attestation I performed an independent interview and examine of this patient. I agree with the findings, assessment, and plan of Dr. Fonseca, internal medicine resident. Patient currently postop day 0 dual-chamber pacemaker for third-degree heart block. Patient is doing well. Pain is controlled. He has no chest pain or shortness of breath. He does remain stable. I discussed the case with the patient and family at the bedside. General: Obese, oriented 3 no acute distress Skin warm and dry Neck supple Lungs clear bilaterally Heart regular rate and rhythm, dressing over pacemaker site Abdomen soft nontender normoactive bowel sounds Extremities show trace edema
[2018-05-18] MEDS ORDERED: 0.9 % Sodium Chloride 500 ML ONE (11:28)
[2018-05-18] MEDS ORDERED: Water for inj. (sterile) 10 ML IV ONE (11:28)
[2018-05-18] MEDS ORDERED: *HR* Midazolam HCl 2 MG/2 ML VIAL ONE (12:01)
[2018-05-18] MEDS ORDERED: *HR* FentaNYL (PF) 100 MCG/2 ML VIAL ONE (12:02)
[2018-05-18] MEDS ORDERED: 0.9 % Sodium Chloride 1,000 ML ONE ×2 (12:02→23:36)
--- NOTE | 2018-05-18 12:11 | Pre-Sedation Evaluation ---
Pre-sedation evaluation - Pre-sedation checklist Date of procedure: 05/18/18 Recent Vitals: Last Vital Signs Temp 98.3 F 05/18/18 07:31 Pulse 63 05/18/18 07:31 Resp 16 05/18/18 07:50 BP 172/63 05/18/18 07:31 Pulse Ox 93 05/18/18 09:00 H&P (including ROS) documented in medical record: Yes Previous reaction to sedatives/anesthetics: Yes; explain in comment Dietary Status: NPO after Midnight Airway Assessment: Patient can open mouth completely, TMJ function normal, Micrognathia (under-bite, receding chin) absent Possible difficult airway: No ASA Classification *see protocol: CLASS II-Mild systemic disease Plan of Care: Pt appropriate candidate for procedure/moderate/conscious sedation , Risks/benefits of procedure/sedation discussed w/ patient/family Cardiac Registry (Cardio Only) - Functional Capacity - Clincal Frailty Scale
[2018-05-18] MEDS ORDERED: *HR* OxyCODONE Immed Rel 5 MG TABLET PO PRN ×2 (13:22→23:19)
--- NOTE | 2018-05-18 15:49 | Electrocardiograph Report ---
[place] [id number] Test Date: 2018-05-17 Pat Name: Natanael Doe Department: 104 Room: 2NE30 Gender: M Psychologist Social: MSC : 1940 Requested By: William Mcclendon Order Number: [id number] Reading MD: Homero Meyer Measurements Intervals [place] Rate: 65 P: NM: 0 QRS: 35 QRSD: 130 T: 64 QT: 440 QTc: 452 Interpretive Statements SINUS RHYTHM WITH HIGH GRADE AV BLOCK RIGHT BUNDLE BRANCH BLOCK Ventricular bigeminy Electronically Signed On 05-18-2018 15:47:49 EDT by Homero Meyer
[2018-05-18] MEDS: *HR* Acetylcysteine 20% 600 MG/3 ML ORAL SYRINGE PO SCH ×3 (17:06→17:27)
[2018-05-18] MEDS: Gabapentin 300 MG CAPSULE PO SCH ×3 (17:08→20:15)
[2018-05-18] MEDS ORDERED: Nitroglycerin 0.4 MG TAB.SUBL SL PRN ×2 (20:48→23:19)
[2018-05-18 21:50] LABS: ABG Base Excess -3 mEq/L (-2 to 3); ABG HCO3 21 mEq/L (21-27); ABG Oxygen Saturation 96 % (95-98); ABG PCO2 32 mmHg (35-45); ABG PH 7.42 pH Units (7.32-7.45); ABG PO2 80 mmHg (85-104); ABG TCO2 22 mEq/L (20-26); Blood Gas Respiration Rate 10
[2018-05-18 22:02] LABS: Basophils % 0.2 %; Eosinophils % 0.4 %; Hematocrit 34.1 % (37.5-50.1); Hemoglobin 10.6 g/dL (12.9-16.9); Immature Granulocytes % 0.6 % (0-4); Lymphocytes # 1.9 K/mcL (0.6-4.6); Lymphocytes % 19.6 %; Mean Corpuscular HGB Conc 31.1 g/dL (31.6-35.5); Mean Corpuscular Hemoglobin 29.5 pg (28.0-33.3); Mean Platelet Volume 10.3 fL (9.4-12.4); Monocytes % 9.9 %; Neutrophils # 6.9 K/mcL (1.6-8.9); Platelet Count 265 K/mcL (140-400); Red Blood Count 3.59 M/mcL (4.19-5.50); Segmented Neutrophils % 69.3 %
[2018-05-18 22:21] LABS: BUN/Creatinine Ratio 14 (6-26); Blood Urea Nitrogen 18 mg/dL (8-23); Calcium 8.2 mg/dL (8.6-10.3); Carbon Dioxide 22 mEq/L (23-29); Chloride 108 mEq/L (98-107); Glucose 205 mg/dL (70-105); Osmolality,Calculated 296 (280-300); Potassium 3.9 mEq/L (3.5-5.1); Sodium 139 mEq/L (136-145); eGFR For African Americans > 60 (> 60); eGFR For Non-African Americans 52 (> 60)
[2018-05-18 22:25] LABS: Troponin I 0.04 ng/mL (< 0.04)
--- NOTE | 2018-05-18 22:26 | Event Note ---
Date of Encounter: 05/18/18 Time of Encounter: 22:19 I was called to bedside by nurse due to patient having right-sided chest pain at about Patient was evaluated and stated that pain was on the right side and spreading over to his left side and intermittently going to his back. Right side of his chest was palpated which she initially said made it worse but then stated that it was not the same pain. Patient was given nitroglycerin which did not relieve chest pain. He denied associated nausea, diaphoresis. EKG was obtained which showed a paced rhythm. Patient's oxygen saturation decreased down to 77% and he became more somnolent. Patient was placed inititially on NC 6L then respiratory was called to place BIPAP as he continued to stay in the 70s on high flow NC 6L. Blood pressure during his stay has been hypertensive but he became hypotensive with a low of 77/44. Fluid bolus was initiated and Troponin, CBC, BMP, d-dimer, and BNP was drawn. CXR ordered, read has not been completed but looks like worsening pulmonary congestion. Cardiology was contacted and EKG sent and he believed the EKG to be normal for a paced rhythm and based off the presentation he did not believe this to be due to his heart. I asked if troponin was elevated if we needed to add heparin and he recommended no heparin needed. Patient's coumadin has been held for his pacemaker today but INR was therapeutic today therefore less likely PE. Oxygenation did improve with BIPAP to 96% and with better oxygenation his mentation also improved. Patient's blood pressure responded to fluids. Will finish 1L fluid bolus and recheck blood pressure before starting another bolus as patient's lungs look fluid overloaded. Patient was transferred from [facility] to for closer monitoring of blood pressure and oxygenation status. was notified of situation and transfer to .
[2018-05-18] MEDS ORDERED: Ipratropium/Albuterol Neb 3 ML IH PRN (23:19)
[2018-05-18] MEDS ORDERED: Naloxone 0.4 MG/ML INJ IVP PRN (23:19)
[2018-05-19] MEDS: Ipratropium/Albuterol Neb 3 ML IH SCH ×5 (03:20→19:58)
[2018-05-19 04:29] LABS: Basophils % 0.1 %; Hematocrit 33.4 % (37.5-50.1); Hemoglobin 10.6 g/dL (12.9-16.9); Immature Granulocytes % 0.4 % (0-4); Lymphocytes # 0.8 K/mcL (0.6-4.6); Lymphocytes % 5.7 %; Mean Corpuscular HGB Conc 31.7 g/dL (31.6-35.5); Mean Corpuscular Hemoglobin 29.3 pg (28.0-33.3); Mean Corpuscular Volume 92.3 fL (83.0-100.0); Mean Platelet Volume 10.3 fL (9.4-12.4); Monocytes % 6.8 %; Neutrophils # 12.3 K/mcL (1.6-8.9); Platelet Count 245 K/mcL (140-400); Red Blood Count 3.62 M/mcL (4.19-5.50); Red Cell Distribution Width 16.2 % (11.5-14.5)
[2018-05-19 04:46] LABS: INR 2.2; Prothrombin Time 24.4 Seconds (9.4-12.1)
[2018-05-19 04:48] LABS: Calcium 8.4 mg/dL (8.6-10.3); Potassium 4.7 mEq/L (3.5-5.1)
[2018-05-19] MEDS: LUTEIN 20 MG PO SCH (08:31)
[2018-05-19] MEDS: Gabapentin 300 MG CAPSULE PO SCH ×3 (08:41→21:51)
[2018-05-19] MEDS: Aspirin Enteric Coated 325 MG Tablet PO SCH (08:41)
[2018-05-19] MEDS: Loratadine 10 MG TABLET PO SCH (08:41)
[2018-05-19] MEDS: Furosemide 20 MG TABLET PO SCH (08:41)
[2018-05-19] MEDS: FLUoxetine 20 MG CAPSULE PO SCH (08:42)
[2018-05-19] MEDS: Finasteride 5 MG TABLET PO SCH (08:42)
[2018-05-19] MEDS: Fluticasone Propionate Nasal 50 MCG/SPRAY BOTTLE NS SCH (08:42)
[2018-05-19] MEDS: *HR* Acetylcysteine 20% 600 MG/3 ML ORAL SYRINGE PO SCH ×3 (08:43→15:31)
[2018-05-19] MEDS ORDERED: Furosemide 40 MG/4 ML VIAL IVP ONE (11:02)
--- NOTE | 2018-05-19 11:06 | Cardiology Progress Note ---
Date of Encounter: 05/19/18 Time of Encounter: 11:03 Assessment and Plan (1) Third degree heart block Current Visit: Yes Status: Acute EKG on admit showed CHB, HR 65 bpm. B/p are stable. C/o fatigue, mild SOB, and dizziness at times for one month. Noted HR decreased at home for the past week. TTE showed preserved EF. Lopressor held on admission. S/p PPM placement 05/18/18. Follow up CXR showed no pnuemothorax. Device check completed today shows normal functioning device. No redness, swelling, or drainage seen around incision. (2) Atrial fibrillation Current Visit: Yes Status: Chronic H/o PAF. On coumadin. INR 2.6 today. Hold coumadin today. Restart lopressor. Qualifiers: Atrial fibrillation type: paroxysmal Qualified Code(s): I48.0 - Paroxysmal atrial fibrillation (3) Hypoxia Current Visit: Yes Status: Acute Patient became hypoxic yesterday evening. Known history of COPD. TTE shows preserved EF. He may have some diastolic dysfunction. Some fluid seen on CXR. Continued to have SOB this morning and he states it is at his baseline. He is on home O2 for COPD. Recommend one time dose IV lasix for fluid overload. Continue to monitor kidney function. (4) Chest pain Current Visit: Yes Status: Acute Describes muscle skeletal right shoulder pain. EKG shows paced rhythm. Troponin 0.03, 0.04 in the setting of CHB, hypoxia, and hypotension. Non- diagnostic for ACS. Continue to monitor. Qualifiers: Chest pain type: unspecified Qualified Code(s): R07.9 - Chest pain, unspecified (5) Acute kidney injury Current Visit: Yes Status: Acute CHAS likely secondary to hypotension. Continue to monitor. Discussion w patient/family: The assessment and plan as outlined above was discussed with the patient and/or family members who expressed understanding and agreement. All questions were answered. Thank you for involving us in the care of your patient. Please call with any questions. Subjective Principal diagnosis: CHB Interval history: Mr. Hubbard c/o severe right shoulder pain yesterday evening. His pain increased with movement. He states that he had his shoulder previously repaired and has not had pain in it in a while. He was given SL NTG with no relief. Subsequently he developed hypotension and hypoxia. EKG showed ventricular pacing. He was placed on bipap and given IV fluid. His CXR did suggest fluid overload so IV fluid was stopped. He states his pain significantly improved. He is sore from his PPM placement. Objective Vital Signs, Last 4 Hours Temp Pulse Resp BP Pulse Ox 05/19/18 09:26 88 22 147/75 92 05/19/18 09:22 94 05/19/18 08:51 88 05/19/18 07:21 99.2 F 85 20 141/86 97 General: Conversant, No Apparent Distress HEENT: Atraumatic, Normocephaly, Mucus Membranes Moist Neck: No JVD, Normal carotid pulses Cardiac: Reg Rate and Rhythm, Normal S1 and S2, No Murmur, Other (AYLA dressing D /I. No redness or edema. ) Lungs: Normal Breath Sounds, No Wheeze, Rales, Rhonchi Neuro: Alert and responsive, No focal deficits noted Abdomen: Soft, Non-Tender Skin: No rashes noted on visualized skin Musculoskeletal: No Chest Wall Tenderness Extremities: No Clubbing, No Cyanosis, Normal Pulses, Other (trace edema BLE) Results 05/19/18 04:14 05/19/18 04:14 Lab Results 05/18/18 05/18/18 05/18/18 10:22 21:49 21:51 WBC 9.9 Hgb 10.6 L Hct 34.1 L Plt Count 265 INR Sodium 139 Potassium 3.9 Chloride 108 H Carbon Dioxide 22 L BUN 18 Creatinine 1.32 H Glucose 205 H Calcium 8.2 L Troponin I 0.04 H* B-Natriuretic Peptide TSH 4.654 05/18/18 05/19/18 05/19/18 21:51 04:14 04:14 WBC 14.1 H Hgb 10.6 L Hct 33.4 L Plt Count 245 INR 2.2 Sodium Potassium Chloride Carbon Dioxide BUN Creatinine Glucose Calcium Troponin I B-Natriuretic Peptide 308 H TSH 05/19/18 04:14 WBC Hgb Hct Plt Count INR Sodium 137 Potassium 4.7 Chloride 106 Carbon Dioxide 21 L BUN 20 Creatinine 1.48 H Glucose 256 H Calcium 8.4 L Troponin I B-Natriuretic Peptide TSH - Imaging and Cardiology Echo: report reviewed - EKG Interpretation EKG results cardiology: personally reviewed - VTE Documentation of Mechanical Device: Intermittent pneumatic compression device Consult Discharge Plan - Plan Referrals: Shayy Rodgers MD [Primary Care Provider] -
[2018-05-19] MEDS: Acetaminophen 325 MG TABLET PO PRN (15:28)
[2018-05-19] MEDS ORDERED: *HR* Dextrose 50 % in Water (Syg) 50 ML SYRINGE IVP PRN (16:04)
[2018-05-19] MEDS ORDERED: Dextrose Gel 15 GM/37.5 ML TUBE PO PRN ×2 (16:04)
[2018-05-19] MEDS ORDERED: D5% in Water 1,000 ML IVC PRN (16:04)
--- NOTE | 2018-05-19 16:09 | Internal Med Progress Note ---
Date of Encounter: 05/19/18 Time of Encounter: 16:08 - Assessment and plan (1) Third degree heart block Current Visit: Yes Status: Acute Assessment and plan: Cardiology consulted; appreciate input. He is s/p PPM placement on 05/18/18. HR improved. Metoprolol restarted by cardiology today. Continue telemetry. Monitor vitals. (2) COPD (chronic obstructive pulmonary disease) Current Visit: Yes Status: Chronic Assessment and plan: Acute respiratory failure as per below, but not in COPD exacerbation. Continue respiratory support. Wean O2 as tolerated. Qualifiers: COPD type: chronic bronchitis Chronic bronchitis type: unspecified Qualified Code(s): J42 - Unspecified chronic bronchitis (3) Diabetes mellitus Current Visit: Yes Status: Chronic Assessment and plan: Start accuchecks and moderate dose SSI QID AC/HS. Qualifiers: Diabetes mellitus type: type 2 Diabetes mellitus skilled nursing insulin use: unspecified manager long term care insulin use status Diabetes mellitus complication status : with unspecified complications Qualified Code(s): E11.8 - Type 2 diabetes mellitus with unspecified complications (4) HTN (hypertension) Current Visit: Yes Status: Chronic Assessment and plan: Currently normotensive. Continue home anti-hypertensives as managed by cardiology. Qualifiers: Hypertension type: essential hypertension Qualified Code(s): I10 - Essential (primary) hypertension (5) Atrial fibrillation Current Visit: Yes Status: Chronic Assessment and plan: Holding coumadin for now while supratherapeutic. Coumadin management by cardiology. Continue medications as managed by cardiology. Metoprolol restarted today. Qualifiers: Atrial fibrillation type: paroxysmal Qualified Code(s): I48.0 - Paroxysmal atrial fibrillation (6) Acute respiratory failure with hypoxia Current Visit: Yes Status: Acute Assessment and plan: Has history of COPD, but not in acute exacerbation. Continue supplemental O2 and BiPAP PRN; wean to home 3L NC as tolerated. Respiratory support with scheduled duonebs, guaifenesin, chest PT, claritin, and incentive spirometer. RT consulted. Rechec ABG in AM. (7) Acute kidney injury Current Visit: Yes Status: Acute Assessment and plan: Creatinine worsening. Likely due to hypotension and diuresis. Recheck BMP in AM. (8) Chest pain Current Visit: Yes Status: Resolved Assessment and plan: No further episodes today. Continue to monitor. Continue telemetry. Cardiology aware and no interventions at this time. Qualifiers: Chest pain type: unspecified Qualified Code(s): R07.9 - Chest pain, unspecified (9) Hypotension Current Visit: Yes Status: Resolved Assessment and plan: Now with BP in systolic 140s. Metoprolol restarted by cardiology today. Continue home anti-hypertensives as managed by cardiology. Qualifiers: Hypotension type: orthostatic hypotension Qualified Code(s): I95.1 - Orthostatic hypotension (10) DVT prophylaxis Current Visit: Yes Status: Acute Assessment and plan: Holding Coumadin for supratherapeutic INR. Pharmacy managing coumadin. Recheck PT/INR in AM. Continue SCDs. - Time Spent With Patient Total time spent is greater than 50% in coordination of care (as documented) at patient's floor/unit and/or counseling patient: less than 15 minutes - Subjective Interval history: Patient had some hypotension, decreased oxygen saturations, and chest pain last night. He received fluid bolus with BP improvement. EKG showed paced rhythm. Troponin was 0.04. Cardiology was consulted and recommended no urgent interventions. He was placed on BiPAP with improvement in O2 saturation. Today , he is doing better. He does not feel SOB, but is requiring 8L on NC (3L at home). He is using BiPAP PRN. He is in good spirits. He states chest pain and all other pain is not present. He wants to know when he can go home. Cardiology saw him earlier today and gave one time additional dose of lasix 40 mg IV. He has good urine output. He denies fever, chills, nausea, vomiting, or abdominal pain. He has no complaints at this time. - Constitutional Vitals: Temp Pulse Resp BP Pulse Ox 98.3 F 92 20 143/64 90 05/19/18 11:35 05/19/18 15:41 05/19/18 15:32 05/19/18 11:35 05/19/18 15:32 General appearance: Present: cooperative, A&O X 3, morbidly obese, pleasant, no acute distress, answers questions appropriately - Respiratory Respiratory exam: Absent: accessory muscle use, rales, rhonchi, wheezes Additional comments: Normal WOB, coarse breath sounds bilaterally - Cardiovascular Cardiovascular exam: Present: RRR, +S1, +S2. Absent: diastolic murmur, gallop, rubs, systolic murmur Additional comments: No BLE edema - GI/Abdominal GI/Abdominal exam: Present: normal bowel sounds, soft. Absent: distended, hepatomegaly, mass, splenomegaly, tenderness - Psychiatric Psychiatric exam: Present: normal affect, normal mood. Absent: agitated, anxious, depressed - Skin Skin exam: Present: dry, intact, warm. Absent: cyanosis, rash Internal Medicine: Result - Labs CBC & Chem 7: 05/19/18 04:14 05/19/18 04:14 Labs: Short CBC 05/18/18 05/19/18 Range/Units 21:51 04:14 WBC 9.9 14.1 H (4.3-11.1) K/mcL Hgb 10.6 L 10.6 L (12.9-16.9) g/dL Hct 34.1 L 33.4 L (37.5-50.1) % Plt Count 265 245 (140-400) K/mcL Neutrophils # 6.9 12.3 H (1.6-8.9) K/mcL BMP 05/18/18 05/19/18 21:49 04:14 Sodium 139 137 Potassium 3.9 4.7 Chloride 108 H 106 Carbon Dioxide 22 L 21 L BUN 18 20 Creatinine 1.32 H 1.48 H Glucose 205 H 256 H Calcium 8.2 L 8.4 L Cardiac Enzymes 05/18/18 Range/Units 21:49 Troponin I 0.04 H* (< 0.04) ng/mL - ABG Interpretation ABG results: ABG ABG pH 7.42 pH Units (7.32-7.45) 05/18/18 21:45 ABG pCO2 32 mmHg (35-45) L 05/18/18 21:45 ABG pO2 80 mmHg (85-104) L 05/18/18 21:45 ABG O2 Saturation 96 % (95-98) 05/18/18 21:45 PT/INR, D-dimer PT 24.4 Seconds (9.4-12.1) H 05/19/18 04:14 - Impressions Impressions Chest X-Ray 05/18/18 21:22 IMPRESSION: Increased pleuroparenchymal opacities in the short interval. D/ / Louie Rodgers MD / Louie Rodgers MD Interpreting Provider: Louie Rodgers MD Chest X-Ray 05/19/18 06:00 IMPRESSION: 1. No pneumothorax status post pacemaker placement 2. Cardiomegaly with bilateral pleural effusions 3. Right lower lobe atelectasis D/ / Emmanuel Huertas MD / Emmanuel Huertas MD Interpreting Provider: Emmanuel Huertas MD Consult Discharge Plan - Plan Referrals: Shayy Rodgers MD [Primary Care Provider] -
[2018-05-19] MEDS ORDERED: Albuterol 2.5 MG/3 ML NEBULIZER IH PRN (16:16)
[2018-05-19] MEDS: Insulin LISPRO 300 UNITS/3 ML VIAL SQ SCH ×2 (18:13→21:54)
[2018-05-19] MEDS: (Umeclidinium Bromide [Incruse Ellipta] 62.5 MCG) IH SCH (18:13)
[2018-05-20] MEDS: Ipratropium/Albuterol Neb 3 ML IH SCH ×7 (00:14→23:13)
[2018-05-20 05:33] LABS: ABG Base Excess 0 mEq/L (-2 to 3); ABG HCO3 24 mEq/L (21-27); ABG Oxygen Saturation 92 % (95-98); ABG PCO2 37 mmHg (35-45); ABG PH 7.42 pH Units (7.32-7.45); ABG PO2 63 mmHg (85-104); ABG TCO2 25 mEq/L (20-26)
[2018-05-20] MEDS: *HR* Acetylcysteine 20% 600 MG/3 ML ORAL SYRINGE PO SCH ×3 (07:36→17:22)
[2018-05-20] MEDS: Insulin LISPRO 300 UNITS/3 ML VIAL SQ SCH ×4 (07:36→21:27)
[2018-05-20] MEDS: Aspirin Enteric Coated 325 MG Tablet PO SCH (07:36)
[2018-05-20] MEDS: Fluticasone Propionate Nasal 50 MCG/SPRAY BOTTLE NS SCH (07:36)
[2018-05-20] MEDS: LUTEIN 20 MG PO SCH (07:37)
[2018-05-20] MEDS: Finasteride 5 MG TABLET PO SCH (07:37)
[2018-05-20] MEDS: (Umeclidinium Bromide [Incruse Ellipta] 62.5 MCG) IH SCH (07:37)
[2018-05-20] MEDS: FLUoxetine 20 MG CAPSULE PO SCH (07:37)
[2018-05-20] MEDS: Loratadine 10 MG TABLET PO SCH (07:37)
[2018-05-20] MEDS: Furosemide 20 MG TABLET PO SCH (07:37)
[2018-05-20] MEDS: Gabapentin 300 MG CAPSULE PO SCH ×3 (07:37→19:35)
[2018-05-20 07:45] LABS: Basophils % 0.2 %; Eosinophils % 0.1 %; Hemoglobin 10.1 g/dL (12.9-16.9); Immature Granulocytes % 0.5 % (0-4); Lymphocytes # 1.1 K/mcL (0.6-4.6); Lymphocytes % 6.6 %; Mean Corpuscular HGB Conc 31.6 g/dL (31.6-35.5); Mean Corpuscular Hemoglobin 29.4 pg (28.0-33.3); Mean Platelet Volume 10.7 fL (9.4-12.4); Monocytes # 1.8 K/mcL (0.0-1.3); Monocytes % 10.6 %; Neutrophils # 13.7 K/mcL (1.6-8.9); Platelet Count 291 K/mcL (140-400); Red Blood Count 3.44 M/mcL (4.19-5.50); Red Cell Distribution Width 16.5 % (11.5-14.5)
[2018-05-20 08:05] LABS: BUN/Creatinine Ratio 18 (6-26); Blood Urea Nitrogen 21 mg/dL (8-23); Calcium 8.6 mg/dL (8.6-10.3); Carbon Dioxide 23 mEq/L (23-29); Chloride 104 mEq/L (98-107); Glucose 213 mg/dL (70-105); Osmolality,Calculated 289 (280-300); Potassium 3.9 mEq/L (3.5-5.1); Sodium 135 mEq/L (136-145); eGFR For African Americans > 60 (> 60); eGFR For Non-African Americans > 60 (> 60)
[2018-05-20] MEDS ORDERED: Budesonide/Formoterol 160/4.5 MDI IH SCH (10:00)
--- NOTE | 2018-05-20 12:51 | Internal Med Progress Note ---
<Esequiel Roberts - Last Filed: 05/20/18 13:11> Date of Encounter: 05/20/18 Time of Encounter: 09:45 - Assessment and plan (1) Third degree heart block Current Visit: Yes Status: Acute Assessment and plan: Cardiology consulted; appreciate input. He is s/p PPM placement on 05/18/18. HR improved. Continue telemetry. Monitor vitals. (2) Chest pain Current Visit: Yes Status: Resolved Assessment and plan: No further episodes. Continue to monitor. Continue telemetry. Qualifiers: Chest pain type: unspecified Qualified Code(s): R07.9 - Chest pain, unspecified (3) Hypotension Current Visit: Yes Status: Resolved Assessment and plan: Resolved. Normotensive currently, on Metoprolol 12.5mg BID Qualifiers: Hypotension type: orthostatic hypotension Qualified Code(s): I95.1 - Orthostatic hypotension (4) COPD (chronic obstructive pulmonary disease) Current Visit: Yes Status: Chronic Assessment and plan: Chronic, on 3L at home Weaning from bipap prn, currently high-flow NC needing at times 11, titrated down to 9 and saturating adequately at 90-93% range so far, continuing to monitor. Qualifiers: COPD type: chronic bronchitis Chronic bronchitis type: unspecified Qualified Code(s): J42 - Unspecified chronic bronchitis (5) Diabetes mellitus Current Visit: Yes Status: Chronic Assessment and plan: Moderate dose SSI QID AC/HS. Qualifiers: Diabetes mellitus type: type 2 Diabetes mellitus stock puller insulin use: unspecified snf insulin use status Diabetes mellitus complication status : with unspecified complications Qualified Code(s): E11.8 - Type 2 diabetes mellitus with unspecified complications (6) HTN (hypertension) Current Visit: Yes Status: Chronic Assessment and plan: Hx HTN, on Metoprolol 12.5mg BID Qualifiers: Hypertension type: essential hypertension Qualified Code(s): I10 - Essential (primary) hypertension (7) Atrial fibrillation Current Visit: Yes Status: Chronic Assessment and plan: INR 2.2 05/19; plan for AM PT/INR for 05/21 Pharmacy to dose Qualifiers: Atrial fibrillation type: paroxysmal Qualified Code(s): I48.0 - Paroxysmal atrial fibrillation (8) Acute kidney injury Current Visit: Yes Status: Acute Assessment and plan: Creatinine improved to 1.16 (1.48) Continuing gentle diuresis with Lasix 20mg po daily (9) DVT prophylaxis Current Visit: Yes Status: Acute Assessment and plan: Pharmacy managing coumadin. Recheck PT/INR in AM. Continuing SCDs currently. (10) Acute respiratory failure with hypoxia Current Visit: Yes Status: Acute Assessment and plan: Has history of COPD, but not in acute exacerbation. Continue supplemental O2 and BiPAP PRN; wean to home 3L NC as tolerated. Respiratory support with scheduled duonebs, guaifenesin, chest PT, claritin, and incentive spirometer. RT consulted. - Time Spent With Patient Total time spent is greater than 50% in coordination of care (as documented) at patient's floor/unit and/or counseling patient: - Subjective Interval history: Patient seen and evaluated in chair next to bed. He denies shortness of breath or chest discomfort, no fevers. Device check yesterday went well. He is 3L at home, attempting to work on O2 titration further today. - Constitutional Vitals: Temp Pulse Resp BP Pulse Ox 98.8 F 69 20 127/76 95 05/20/18 11:59 05/20/18 12:07 05/20/18 11:59 05/20/18 11:59 05/20/18 11:59 General appearance: Present: cooperative, A&O X 3, morbidly obese, pleasant, no acute distress, answers questions appropriately - Head Head exam: Present: atraumatic, normocephalic - Eye Eye exam: Present: PERRL, conjuntiva pink, sclera anicteric Pupils: Present: PERRL - Neck Neck exam general surgery: Present: supple, trachea midline. Absent: lymphadenopathy - Respiratory Respiratory exam: Present: decreased breath sounds. Absent: accessory muscle use, rales, rhonchi, wheezes - Cardiovascular Cardiovascular exam: Present: RRR, +S1, +S2. Absent: diastolic murmur, gallop, rubs, systolic murmur - GI/Abdominal GI/Abdominal exam: Present: normal bowel sounds, soft, no peritoneal signs. Absent: distended, tenderness - Extremities Exam Extremities exam: Present: warm, radial pulses palpable and symmetrical. Absent : calf tenderness, cyanotic, pedal edema - Neurological Exam Neurological exam: Present: CN II-XII intact, oriented X3, no focal deficits. Absent: pronater drift, facial droop, speech deficit - Skin Skin exam: Present: dry, intact Internal Medicine: Result - Labs CBC & Chem 7: 05/20/18 06:38 05/20/18 06:38 Labs: Short CBC 05/20/18 Range/Units 06:38 WBC 16.7 H (4.3-11.1) K/mcL Hgb 10.1 L (12.9-16.9) g/dL Hct 32.0 L (37.5-50.1) % Plt Count 291 (140-400) K/mcL Neutrophils # 13.7 H (1.6-8.9) K/mcL BMP 05/20/18 06:38 Sodium 135 L Potassium 3.9 Chloride 104 Carbon Dioxide 23 BUN 21 Creatinine 1.16 Glucose 213 H Calcium 8.6 - ABG Interpretation ABG results: ABG ABG pH 7.42 pH Units (7.32-7.45) 05/20/18 05:28 ABG pCO2 37 mmHg (35-45) 05/20/18 05:28 ABG pO2 63 mmHg (85-104) L 05/20/18 05:28 ABG O2 Saturation 92 % (95-98) L 05/20/18 05:28 PT/INR, D-dimer PT 24.4 Seconds (9.4-12.1) H 05/19/18 04:14 - VTE Documentation of Mechanical Device: Intermittent pneumatic compression device Consult Discharge Plan - Plan Referrals: Shayy Rodgers MD [Primary Care Provider] - <Maurilio Cee - Last Filed: 05/20/18 17:59> Date of Encounter: 05/20/18 - Assessment and plan (1) Hypotension Current Visit: Yes Status: Resolved Qualifiers: Hypotension type: orthostatic hypotension Qualified Code(s): I95.1 - Orthostatic hypotension (2) COPD (chronic obstructive pulmonary disease) Current Visit: Yes Status: Chronic Qualifiers: COPD type: chronic bronchitis Chronic bronchitis type: unspecified Qualified Code(s): J42 - Unspecified chronic bronchitis (3) Diabetes mellitus Current Visit: Yes Status: Chronic Qualifiers: Diabetes mellitus type: type 2 Diabetes mellitus stock puller insulin use: unspecified stock puller insulin use status Diabetes mellitus complication status : with unspecified complications Qualified Code(s): E11.8 - Type 2 diabetes mellitus with unspecified complications (4) HTN (hypertension) Current Visit: Yes Status: Chronic Qualifiers: Hypertension type: essential hypertension Qualified Code(s): I10 - Essential (primary) hypertension (5) Atrial fibrillation Current Visit: Yes Status: Chronic Qualifiers: Atrial fibrillation type: paroxysmal Qualified Code(s): I48.0 - Paroxysmal atrial fibrillation (6) Third degree heart block Current Visit: Yes Status: Acute (7) DVT prophylaxis Current Visit: Yes Status: Acute (8) Chest pain Current Visit: Yes Status: Resolved Qualifiers: Chest pain type: unspecified Qualified Code(s): R07.9 - Chest pain, unspecified (9) Acute kidney injury Current Visit: Yes Status: Acute (10) Acute respiratory failure with hypoxia Current Visit: Yes Status: Acute - Time Spent With Patient Total time spent is greater than 50% in coordination of care (as documented) at patient's floor/unit and/or counseling patient: - Constitutional Vitals: Temp Pulse Resp BP Pulse Ox 99.0 F 79 16 146/74 96 05/20/18 16:31 05/20/18 16:31 05/20/18 16:42 05/20/18 16:31 05/20/18 16:42 Internal Medicine: Result - Labs CBC & Chem 7: 05/20/18 06:38 05/20/18 06:38 - ABG Interpretation ABG results: ABG ABG pH 7.42 pH Units (7.32-7.45) 05/20/18 05:28 ABG pCO2 37 mmHg (35-45) 05/20/18 05:28 ABG pO2 63 mmHg (85-104) L 05/20/18 05:28 ABG O2 Saturation 92 % (95-98) L 05/20/18 05:28 PT/INR, D-dimer PT 24.4 Seconds (9.4-12.1) H 05/19/18 04:14 - Attending Attestation I performed an independent interview and examine this patient. I agree with the findings, assessment, and plan of Dr. Roberts, internal medicine resident. We discussed this case in detail and his progress note is reflective of my input with the exception of my discussion below on concern for HCAP. Patient is status post pacemaker for complete heart block. Postoperative course complicated by acute decompensated congestive heart failure. Suspect due to acute on chronic diastolic dysfunction. Patient has acute hypoxemic pressure failure as a result. I did increase Lasix to 40 mg IV twice a day from 20 mg by mouth daily to enhance diuresis. Patient's renal function has improved. Creatinine is currently 1.16. Blood Pressureressure is reasonably controlled, although may need to go up on his beta sami. I also have concern for right lower lobe pneumonia based on chest x-ray findings, increased oxygen demand, leukocytosis and low grade fever. This would fall under healthcare associated pneumonia. As a result of this I will check blood cultures 2, start patient on Zosyn. Hold on Vancomycin unless no ongoing improvement or worsening (concern for mult renal insults). Repeat chest x-ray in the morning. Sputum culture if able. We will reassess in the morning. Gen: AAOx3, dyspneic Skin wrm and dry Neck Supple Lungs Crackles bilat HT RRR Abd soft +BS, NT EXT 2+ edema Day #1 IV Zosyn for HCAP (?aspiration)
--- NOTE | 2018-05-20 13:17 | Cardiology Progress Note ---
Date of Encounter: 05/20/18 Time of Encounter: 12:30 Assessment and Plan (1) Third degree heart block Current Visit: Yes Status: Acute EKG on admit showed CHB, HR 65 bpm. B/p are stable. C/o fatigue, mild SOB, and dizziness at times for one month. Noted HR decreased at home for the past week. TTE showed preserved EF. Lopressor held on admission. S/p PPM placement 05/18/18. Follow up CXR showed no pnuemothorax. CXR 05/19/18 showed no pnuemothorax and bilateral pleural effusions. IV lasix given. Device check completed today shows normal functioning device. No redness, swelling, or drainage seen around incision. No driving for two weeks. No lifting over 10 lbs, no heavy pushing or pulling. He is recommended to follow in the device clinic in one week for a wound check and one month for a device check. Out-patient f/u in [address] Meyer. Activity restrictions and wound care reviewed as listed above. Cardiology will sign off. Call with questions. (2) Atrial fibrillation Current Visit: Yes Status: Chronic H/o PAF. On coumadin. Currently V paced. Gal INR 2.0-3.0. Qualifiers: Atrial fibrillation type: paroxysmal Qualified Code(s): I48.0 - Paroxysmal atrial fibrillation (3) Hypoxia Current Visit: Yes Status: Acute Patient became hypoxic yesterday evening. Known history of COPD and may have developed pulm edema from CHB/DCHF. TTE shows preserved EF. He may have some diastolic dysfunction. IV lasix given. No recurrent events. Continue oral lasix. (4) Chest pain Current Visit: Yes Status: Resolved Describes muscle skeletal right shoulder pain. EKG shows paced rhythm. Troponin 0.03, 0.04 in the setting of CHB, hypoxia, and hypotension. Non- diagnostic for ACS. Continue to monitor. Qualifiers: Chest pain type: unspecified Qualified Code(s): R07.9 - Chest pain, unspecified (5) Acute kidney injury Current Visit: Yes Status: Acute CHAS likely secondary to hypotension. Now resolved. Discussion w patient/family: The assessment and plan as outlined above was discussed with the patient and/or family members who expressed understanding and agreement. All questions were answered. Thank you for involving us in the care of your patient. Please call with any questions. Subjective Principal diagnosis: CHB Interval history: Mr. Hubbard states that he is feeling better. thinks he looks like he is back to his usual self. Denies shoulder pain. Objective Vital Signs, Last 4 Hours Temp Pulse Resp BP Pulse Ox 05/20/18 12:07 69 05/20/18 11:59 98.8 F 90 20 127/76 95 05/20/18 11:08 16 94 General: Conversant, No Apparent Distress HEENT: Atraumatic, Normocephaly, Mucus Membranes Moist Neck: No JVD, Normal carotid pulses Cardiac: Reg Rate and Rhythm, Normal S1 and S2, No Murmur, Other (AYLA dressing D /I. ) Lungs: Normal Breath Sounds, No Wheeze, Rales, Rhonchi Neuro: Alert and responsive, No focal deficits noted Abdomen: Soft, Non-Tender Skin: No rashes noted on visualized skin Musculoskeletal: No Chest Wall Tenderness Extremities: No Clubbing, No Cyanosis, No Edema, Normal Pulses Results 05/20/18 06:38 05/20/18 06:38 Lab Results 05/20/18 05/20/18 06:38 06:38 WBC 16.7 H Hgb 10.1 L Hct 32.0 L Plt Count 291 Sodium 135 L Potassium 3.9 Chloride 104 Carbon Dioxide 23 BUN 21 Creatinine 1.16 Glucose 213 H Calcium 8.6 - Imaging and Cardiology Chest Xray: report reviewed - EKG Interpretation EKG results cardiology: personally reviewed - VTE Documentation of Mechanical Device: Intermittent pneumatic compression device Consult Discharge Plan - Plan Referrals: Shayy Rodgers MD [Primary Care Provider] -
[2018-05-20] MEDS: Furosemide 40 MG/4 ML VIAL IVP SCH (17:21)
[2018-05-20] MEDS ORDERED: *HR* Warfarin 3 MG TABLET PO ONE (18:00)
[2018-05-20] MEDS ORDERED: Warfarin perPT PO PRN (18:00)
[2018-05-20] MEDS: Piperacillin/Tazobactam 3.375 GM in 0.9 % Sodium Chloride Mini Bag 100 ML IVPB SCH (23:20)
[2018-05-21] MEDS: Ipratropium/Albuterol Neb 3 ML IH SCH ×5 (03:48→20:14)
[2018-05-21 06:11] LABS: INR 1.6; Prothrombin Time 18.4 Seconds (9.4-12.1)
[2018-05-21 06:14] LABS: BUN/Creatinine Ratio 21 (6-26); Blood Urea Nitrogen 21 mg/dL (8-23); Calcium 8.5 mg/dL (8.6-10.3); Carbon Dioxide 24 mEq/L (23-29); Chloride 106 mEq/L (98-107); Glucose 162 mg/dL (70-105); Osmolality,Calculated 289 (280-300); Potassium 4.2 mEq/L (3.5-5.1); Sodium 136 mEq/L (136-145); eGFR For African Americans > 60 (> 60); eGFR For Non-African Americans > 60 (> 60)
[2018-05-21 06:16] LABS: Hematocrit 30.9 % (37.5-50.1); Hemoglobin 9.7 g/dL (12.9-16.9); Mean Corpuscular HGB Conc 31.4 g/dL (31.6-35.5); Mean Corpuscular Hemoglobin 29.2 pg (28.0-33.3); Mean Corpuscular Volume 93.1 fL (83.0-100.0); Mean Platelet Volume 10.4 fL (9.4-12.4); Platelet Count 283 K/mcL (140-400); Red Blood Count 3.32 M/mcL (4.19-5.50); Red Cell Distribution Width 16.4 % (11.5-14.5)
[2018-05-21] MEDS: Budesonide/Formoterol 160/4.5 MDI IH SCH (07:47)
[2018-05-21] MEDS: Piperacillin/Tazobactam 3.375 GM in 0.9 % Sodium Chloride Mini Bag 100 ML IVPB SCH ×2 (08:15→16:02)
[2018-05-21] MEDS: Furosemide 40 MG/4 ML VIAL IVP SCH ×2 (08:35→17:52)
[2018-05-21] MEDS: *HR* Acetylcysteine 20% 600 MG/3 ML ORAL SYRINGE PO SCH (08:35)
[2018-05-21] MEDS: Gabapentin 300 MG CAPSULE PO SCH ×3 (08:36→20:37)
[2018-05-21] MEDS: Finasteride 5 MG TABLET PO SCH (08:36)
[2018-05-21] MEDS: Aspirin Enteric Coated 325 MG Tablet PO SCH (08:37)
[2018-05-21] MEDS: FLUoxetine 20 MG CAPSULE PO SCH (08:37)
[2018-05-21] MEDS: Loratadine 10 MG TABLET PO SCH (08:37)
[2018-05-21] MEDS: Fluticasone Propionate Nasal 50 MCG/SPRAY BOTTLE NS SCH (08:40)
[2018-05-21] MEDS: Insulin LISPRO 300 UNITS/3 ML VIAL SQ SCH ×4 (08:43→20:40)
[2018-05-21] MEDS: (Umeclidinium Bromide [Incruse Ellipta] 62.5 MCG) IH SCH (11:12)
[2018-05-21] MEDS: LUTEIN 20 MG PO SCH (11:12)
[2018-05-21] MEDS ORDERED: MethylPREDNISolone 40 MG/ML VIAL IVP SCH (11:27)
--- NOTE | 2018-05-21 11:39 | Internal Med Progress Note ---
Date of Encounter: 05/21/18 Time of Encounter: 11:35 - Assessment and plan (1) Third degree heart block Current Visit: Yes Status: Acute Assessment and plan: Cardiology consulted; appreciate input. He is s/p PPM placement on 05/18/18. HR improved. Continue telemetry. Monitor vitals. Cardiology signed off today. (2) Acute respiratory failure with hypoxia Current Visit: Yes Status: Acute Assessment and plan: Weaning from BiPAP PRN, currently high-flow NC at 10 L with oxygen saturations in low 90s. Has history of COPD, but not in acute exacerbation. This likely due to bilateraly pleural effusions and pulmonary vascular congestion. CXR this AM shows some improvement. Continue IV zosyn for bibasilar opacities. He is diuresing well. Continue lasix 40 mg IV BID. Monitor strict I&Os and daily weights. Continue supplemental O2 and BiPAP PRN; wean to home 3L NC as tolerated. Respiratory support with scheduled duonebs, guaifenesin, chest PT, claritin, and incentive spirometer. RT consulted. (3) COPD (chronic obstructive pulmonary disease) Current Visit: Yes Status: Chronic Assessment and plan: Chronic, on 3L at home. Weaning supplemental O2 as tolerated. Qualifiers: COPD type: chronic bronchitis Chronic bronchitis type: unspecified Qualified Code(s): J42 - Unspecified chronic bronchitis (4) Hypotension Current Visit: Yes Status: Resolved Assessment and plan: Resolved. Normotensive currently, on Metoprolol 12.5mg BID. Qualifiers: Hypotension type: orthostatic hypotension Qualified Code(s): I95.1 - Orthostatic hypotension (5) Diabetes mellitus Current Visit: Yes Status: Chronic Assessment and plan: Continue accuchecks and moderate dose SSI QID AC/HS. 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 Qualifiers: Hypertension type: essential hypertension Qualified Code(s): I10 - Essential (primary) hypertension (7) Atrial fibrillation Current Visit: Yes Status: Chronic Assessment and plan: Continue beta sami and coumadin as dosed by pharmacy. Qualifiers: Atrial fibrillation type: paroxysmal Qualified Code(s): I48.0 - Paroxysmal atrial fibrillation (8) Chest pain Current Visit: Yes Status: Resolved Assessment and plan: No further episodes. Continue to monitor. Continue telemetry. Qualifiers: Chest pain type: unspecified Qualified Code(s): R07.9 - Chest pain, unspecified (9) Acute kidney injury Current Visit: Yes Status: Acute Assessment and plan: Resolved. Recheck BMP in AM. (10) DVT prophylaxis Current Visit: Yes Status: Acute Assessment and plan: Pharmacy managing coumadin. Recheck PT/INR in AM. Continuing SCDs currently. - Time Spent With Patient Total time spent is greater than 50% in coordination of care (as documented) at patient's floor/unit and/or counseling patient: less than 15 minutes - Subjective Interval history: Patient had no acute events overnight. He was on BiPAP last night and now on high flow NC at 10 L with oxygen saturations in low 90s. He has had good urine output. He is now on lasix 40 mg IV BID. CXR today showed slight improvement of pulmonary vascular congestion, and bilateral pleural effusion with bibasilar opacification. Cardiology signed off on patient today. He denies chest pain, but does feel short of breath. He denies fever, chills, nausea, vomiting, or abdominal pain. He has no other complaints at this time. - Constitutional Vitals: Temp Pulse Resp BP Pulse Ox 98.0 F 93 22 121/79 95 05/21/18 11:21 05/21/18 11:21 05/21/18 11:21 05/21/18 11:21 05/21/18 11:21 General appearance: Present: cooperative, A&O X 3, morbidly obese, pleasant, no acute distress, answers questions appropriately - Respiratory Respiratory exam: Absent: accessory muscle use, rales, rhonchi, wheezes Additional comments: Mildly labored WOB, coarse breath sounds bilaterally - Cardiovascular Cardiovascular exam: Present: RRR, +S1, +S2. Absent: diastolic murmur, gallop, rubs, systolic murmur Additional comments: No BLE edema - GI/Abdominal GI/Abdominal exam: Present: normal bowel sounds, soft. Absent: distended, hepatomegaly, mass, splenomegaly, tenderness - Psychiatric Psychiatric exam: Present: normal affect, normal mood. Absent: agitated, anxious, depressed - Skin Skin exam: Present: dry, intact, warm. Absent: cyanosis, rash Internal Medicine: Result - Labs CBC & Chem 7: 05/21/18 05:25 05/21/18 05:25 Labs: Short CBC 05/21/18 Range/Units 05:25 WBC 12.3 H (4.3-11.1) K/mcL Hgb 9.7 L (12.9-16.9) g/dL Hct 30.9 L (37.5-50.1) % Plt Count 283 (140-400) K/mcL BMP 05/21/18 05:25 Sodium 136 Potassium 4.2 Chloride 106 Carbon Dioxide 24 BUN 21 Creatinine 1.02 Glucose 162 H Calcium 8.5 L - ABG Interpretation ABG results: ABG ABG pH 7.42 pH Units (7.32-7.45) 05/20/18 05:28 ABG pCO2 37 mmHg (35-45) 05/20/18 05:28 ABG pO2 63 mmHg (85-104) L 05/20/18 05:28 ABG O2 Saturation 92 % (95-98) L 05/20/18 05:28 PT/INR, D-dimer PT 18.4 Seconds (9.4-12.1) H 05/21/18 05:25 - Impressions Impressions Chest X-Ray 05/21/18 06:00 IMPRESSION: 1. Slight improvement in prominence of the pulmonary vasculature. 2. Persistently enlarged cardiac silhouette with bilateral pleural effusions with bibasilar opacification. D/ / Bismark Pride MD / Bismark Pride MD Interpreting Provider: Bismark Pride MD Consult Discharge Plan - Plan Referrals: Shayy Rodgers MD [Primary Care Provider] -
[2018-05-21 14:49] LABS: ABG Base Excess 3 mEq/L (-2 to 3); ABG HCO3 27 mEq/L (21-27); ABG Oxygen Saturation 97 % (95-98); ABG PCO2 39 mmHg (35-45); ABG PH 7.45 pH Units (7.32-7.45); ABG PO2 83 mmHg (85-104); ABG TCO2 28 mEq/L (20-26); Blood Gas Modality BiLevel; Blood Gas PEEP 6 cm H2O; Blood Gas Pressure Support 12 cm H2O
--- NOTE | 2018-05-21 17:49 | Electrocardiograph Report ---
[address] [address] Test Date: 2018-05-18 Pat Name: Natanael Doe Department: 111 Room: 2N01 Gender: M Lathe Spotter: CHULA : 1940 Requested By: Elizabeth Alvarez Order Number: [id number] Reading MD: Perfecto Isbell Measurements Intervals [place] Rate: 83 P: 41 NE: 194 QRS: -67 QRSD: 169 T: 87 QT: 478 QTc: 517 Interpretive Statements ELECTRONIC VENTRICULAR PACEMAKER Electronically Signed On 05-21-2018 17:47:27 EDT by Perfecto Isbell
[2018-05-21] MEDS ORDERED: *HR* Warfarin 3 MG TABLET PO ONE (18:00)
[2018-05-21] MEDS: Acetaminophen 325 MG TABLET PO PRN (20:51)
[2018-05-22] MEDS: Ipratropium/Albuterol Neb 3 ML IH SCH ×6 (00:04→20:15)
[2018-05-22] MEDS: Piperacillin/Tazobactam 3.375 GM in 0.9 % Sodium Chloride Mini Bag 100 ML IVPB SCH ×2 (00:09→09:53)
[2018-05-22 04:09] LABS: Basophils # 0.1 K/mcL (0.0-0.2); Basophils % 0.4 %; Eosinophils # 0.3 K/mcL (0.0-0.6); Eosinophils % 2.3 %; Hematocrit 32.5 % (37.5-50.1); Hemoglobin 10.3 g/dL (12.9-16.9); Immature Granulocytes % 0.4 % (0-4); Lymphocytes # 1.8 K/mcL (0.6-4.6); Lymphocytes % 13.2 %; Mean Corpuscular HGB Conc 31.7 g/dL (31.6-35.5); Mean Corpuscular Hemoglobin 30.2 pg (28.0-33.3); Mean Corpuscular Volume 95.3 fL (83.0-100.0); Mean Platelet Volume 10.2 fL (9.4-12.4); Monocytes # 1.4 K/mcL (0.0-1.3); Monocytes % 10.4 %; Neutrophils # 9.8 K/mcL (1.6-8.9); Platelet Count 288 K/mcL (140-400); Red Blood Count 3.41 M/mcL (4.19-5.50); Segmented Neutrophils % 73.3 %
[2018-05-22 04:17] LABS: INR 1.7; Prothrombin Time 19.6 Seconds (9.4-12.1)
[2018-05-22 04:28] LABS: BUN/Creatinine Ratio 19 (6-26); Blood Urea Nitrogen 18 mg/dL (8-23); Calcium 8.7 mg/dL (8.6-10.3); Carbon Dioxide 27 mEq/L (23-29); Chloride 101 mEq/L (98-107); Glucose 136 mg/dL (70-105); Osmolality,Calculated 286 (280-300); Potassium 3.8 mEq/L (3.5-5.1); Sodium 136 mEq/L (136-145); eGFR For African Americans > 60 (> 60); eGFR For Non-African Americans > 60 (> 60)
--- NOTE | 2018-05-22 06:29 | Electrocardiograph Report ---
[address] [address] Test Date: 2018-05-21 Pat Name: Natanael Doe Department: 110 Room: 2N01 Gender: M Sleep Manager: DAGMAR : 1940 Requested By: Ruben Geller Order Number: [id number] Reading MD: Perfecto Isbell Measurements Intervals [place] Rate: 91 P: 84 NH: 196 QRS: -58 QRSD: 183 T: 84 QT: 425 QTc: 474 Interpretive Statements ELECTRONIC VENTRICULAR PACEMAKER Electronically Signed On 05-22-2018 6:27:43 EDT by Perfecto Isbell
[2018-05-22] MEDS: Budesonide/Formoterol 160/4.5 MDI IH SCH (07:52)
--- NOTE | 2018-05-22 08:50 | Internal Med Progress Note ---
Date of Encounter: 05/22/18 Time of Encounter: 11:00 - Assessment and plan (1) Acute respiratory failure with hypoxia Current Visit: Yes Status: Acute Assessment and plan: Weaning from BiPAP PRN, currently high-flow NC at 10 L with oxygen saturations in low 90s. CT PA of the chest done today showed mild right and small left pleural effusion in addition to mild pericardial effusion. Consult pulmonology and appreciate recommendations Will also reconsult cardiology for any further recommendations (2) Third degree heart block Current Visit: Yes Status: Acute Assessment and plan: Cardiology consulted; appreciate input. He is s/p PPM placement on 05/18/18. Patient now with mild pericardial effusion on CTA of the chest this morning Will reconsult cardiology in appreciate any further recommendations (3) COPD (chronic obstructive pulmonary disease) Current Visit: Yes Status: Chronic Assessment and plan: Chronic, on 3L at home but patient requiring 10 L of O2 Weaning supplemental O2 as tolerated. Qualifiers: COPD type: chronic bronchitis Chronic bronchitis type: unspecified Qualified Code(s): J42 - Unspecified chronic bronchitis (4) Hypotension Current Visit: Yes Status: Resolved Assessment and plan: Resolved. Normotensive currently, on Metoprolol 12.5mg BID. Qualifiers: Hypotension type: orthostatic hypotension Qualified Code(s): I95.1 - Orthostatic hypotension (5) Acute kidney injury Current Visit: Yes Status: Acute Assessment and plan: Resolved; continue to monitor (6) HTN (hypertension) Current Visit: Yes Status: Chronic Assessment and plan: Continue Lisinopril 10 mg QD and Metoprolol 12.5mg BID. Qualifiers: Hypertension type: essential hypertension Qualified Code(s): I10 - Essential (primary) hypertension (7) Atrial fibrillation Current Visit: Yes Status: Chronic Assessment and plan: Continue beta sami and coumadin as dosed by pharmacy. Qualifiers: Atrial fibrillation type: paroxysmal Qualified Code(s): I48.0 - Paroxysmal atrial fibrillation (8) Diabetes mellitus Current Visit: Yes Status: Chronic Assessment and plan: Continue accuchecks and moderate dose SSI QID AC/HS. 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 Recheck PT/INR in AM. Continuing SCDs currently. - Time Spent With Patient Total time spent is greater than 50% in coordination of care (as documented) at patient's floor/unit and/or counseling patient: - Subjective Interval history: Patient still requiring higher amounts of O2 supplementation this morning status post pacemaker placement for third-degree heart block. - Constitutional Vitals: Temp Pulse Resp BP Pulse Ox 98.8 F 81 18 154/78 97 05/22/18 06:56 05/22/18 06:56 05/22/18 07:52 05/22/18 06:56 05/22/18 07:52 General appearance: Present: cooperative, A&O X 3, morbidly obese, pleasant, no acute distress, answers questions appropriately - Respiratory Respiratory exam: Present: CTAB. Absent: accessory muscle use, rales, rhonchi, wheezes - Cardiovascular Cardiovascular exam: Present: RRR, +S1, +S2. Absent: diastolic murmur, gallop, rubs, systolic murmur - Extremities Exam Extremities exam: Absent: pedal edema Internal Medicine: Result - Labs CBC & Chem 7: 05/22/18 03:12 05/22/18 03:12 Labs: Short CBC 05/22/18 Range/Units 03:12 WBC 13.3 H (4.3-11.1) K/mcL Hgb 10.3 L (12.9-16.9) g/dL Hct 32.5 L (37.5-50.1) % Plt Count 288 (140-400) K/mcL Neutrophils # 9.8 H (1.6-8.9) K/mcL BMP 05/22/18 03:12 Sodium 136 Potassium 3.8 Chloride 101 Carbon Dioxide 27 BUN 18 Creatinine 0.94 Glucose 136 H Calcium 8.7 - ABG Interpretation ABG results: ABG ABG pH 7.45 pH Units (7.32-7.45) 05/21/18 14:45 ABG pCO2 39 mmHg (35-45) 05/21/18 14:45 ABG pO2 83 mmHg (85-104) L 05/21/18 14:45 ABG O2 Saturation 97 % (95-98) 05/21/18 14:45 PT/INR, D-dimer PT 19.6 Seconds (9.4-12.1) H 05/22/18 03:12 - VTE Documentation of Mechanical Device: Intermittent pneumatic compression device Consult Discharge Plan - Plan Referrals: Shayy Rodgers MD [Primary Care Provider] -
[2018-05-22] MEDS: Fluticasone Propionate Nasal 50 MCG/SPRAY BOTTLE NS SCH (09:51)
[2018-05-22] MEDS: Furosemide 40 MG/4 ML VIAL IVP SCH ×2 (09:51→17:19)
[2018-05-22] MEDS: Finasteride 5 MG TABLET PO SCH (09:55)
[2018-05-22] MEDS: Loratadine 10 MG TABLET PO SCH (09:55)
[2018-05-22] MEDS: Gabapentin 300 MG CAPSULE PO SCH ×3 (09:55→21:32)
[2018-05-22] MEDS: FLUoxetine 20 MG CAPSULE PO SCH (09:56)
[2018-05-22] MEDS: Insulin LISPRO 300 UNITS/3 ML VIAL SQ SCH ×4 (10:01→21:35)
[2018-05-22] MEDS: Aspirin Enteric Coated 325 MG Tablet PO SCH (10:14)
[2018-05-22] MEDS ORDERED: Isovue-370 500 ML INFUS..BTL IV ONE (10:53)
[2018-05-23] MEDS: Ipratropium/Albuterol Neb 3 ML IH SCH ×7 (00:01→23:58)
[2018-05-23] MEDS: Piperacillin/Tazobactam 3.375 GM in 0.9 % Sodium Chloride Mini Bag 100 ML IVPB SCH ×4 (00:48→23:11)
[2018-05-23 05:49] LABS: INR 1.9; Prothrombin Time 21.3 Seconds (9.4-12.1)
--- NOTE | 2018-05-23 06:40 | Pulmonology Consult Note ---
Date of Encounter: 05/23/18 Time of Encounter: 06:40 Assessment and Plan (1) Acute respiratory failure with hypoxia Current Visit: Yes Status: Acute This is multifactorial including primarily hydrostatic pulmonary edema from heart failure atelectasis and suspected mild COPD exacerbation Improvement today has been weaned down to 7 L high flow nasal cannula with saturation around 96% -Continue subtotal oxygen keep saturation greater than 88% at all times. Can use of positive airway pressure support as needed for work of breathing or hypoxemia -Out of bed to chair ambulation and incentive spirometry she will be encouraged to the patient to mitigate the effects of atelectasis and VQ mismatch -Focus on treatment of underlying causes including heart failure and COPD (2) COPD exacerbation Current Visit: No Status: Acute Suspected mild COPD exacerbation Start prednisone 40 mg 5 days Continue schedule bronchodilators including the patient's combination inhaled corticosteroid/long-acting beta agonist He is on chronic therapy with the oral N-acetylcysteine with optimal dosing 600 mg twice a day (3) KYLEE (obstructive sleep apnea) Current Visit: No Status: Chronic Patient prescription for CPAP is 12 cm water at night and during naps (4) (HFpEF) heart failure with preserved ejection fraction Current Visit: Yes Status: Acute Clearly volume overloaded on exam with evidence of dilated left atrium on recent echocardiogram. Agree with continued Lasix diuresis goal net -1-1.5 L over the next 24 hours. Daily Serum creatinine and electrolytes including magnesium per primary medicine service Caution should be exercised with aggressive diuretic with combination of MAR inhibitor Optimize heart rate and blood pressure control per medicine/cardiology service (5) Pleural effusion Current Visit: Yes Status: Acute This is secondary to hydrostatic pulmonary edema The pleural effusions are very small would be difficult to safely drain via bedside thoracentesis. I suspect that the utility of this procedure is very low with regards to improvement in oxygenation or work of breathing. Furthermore patient is anticoagulated and this would have to be interrupted which would further post increased risk CVA unecessarily -Recommend continued diuresis as outlined above. (6) Third degree heart block Current Visit: Yes Status: Acute Status post PPM cardiology following blood pressure stable History of Present Illness Consult date: 05/22/18 Requesting physician: Alexander Galeas Reason for consult: hypoxemia Chief complaint: Difficulty in Breathing History of present illness: This is a 77-year-old gentleman with a past medical history of hypertension and atrial fibrillation diabetes COPD who presented with shortness of breath and bradycardia on the day of admission in the emergency department he noted his pulse to be in the 40 with associated dizziness but without laine syncope or chest pain. He is also had a productive cough but denied fevers chills or hemoptysis. In the ED his heart rate was 43 blood pressure 181/120 EKG demonstrated to third degree heart block. This led to placement of a pacemaker on 05/18 with resolution of heart block/bradycardia. Unfortunately the patient is noted to have significant hypoxemia during this admission requiring up to 10 L nasal cannula via high flow to maintain oxygen saturation. As part of workup for hypoxemia the primary medicine service has ordered a chest CT performed yesterday which is notable for a mild right and small left pleural effusion with some compressive bibasilar atelectasis but no focal lung mass or evidence of pneumonia. Pulmonary was consulted for further evaluation. Past Med Surg Social Fam HX - Past Medical History Medical history: arthritis, atrial fibrillation, COPD, diabetes, GERD, hyperlipidemia, hypertension, thyroid disease, other Additional medical history: Hypothyroid. Sleep apnea Psychiatric history: no psych history - Past Surgical History Surgical History: cholecystectomy, knee replacement, orthopedic, other Additional surgical history: Gallbladder, bilateral knee replacement, Appendectomy, Right shoulder. - Social History Smoking Status: Former smoker Smokeless Tobacco Status: No Alcohol use: none Drug use: none - Family History Father Adopted: No Family Member Ethnicity: Non- Living Status: Hx Family Cardiac Disorders: No Hx Family Respiratory Disorders: Yes (Asbestosis) Hx Family Cancer: Yes (Lung CA) Hx Family GI Disorders: No Hx Family Endocrine Disorder: No Hx Family Neuromuscular Disorders: No Hx Family Neurologic Disorders: No Hx Family HEENT Disorders: No Hx Family Autoimmune Disorders: No Medications and Allergies Acetylcysteine [P-Rjifyw-q-Cysteine] 600 mg PO TIDAC 05/17/18 [History] Amitriptyline HCl 100 mg PO DAILY 05/17/18 [History] Aspirin [Ecotrin] 325 mg PO DAILY 05/17/18 [History] Atorvastatin Calcium [Lipitor] 20 mg PO HS 05/17/18 [History] FLUoxetine HCl [PROzac] 20 mg PO DAILY 05/17/18 [History] Finasteride [Proscar] 5 mg PO DAILY 05/17/18 [History] Fish Oil/Dha/Epa [Fish Oil 1,200 mg Fish Oil] 1 cap PO DAILY 05/17/18 [History] Fluticasone Propionate Nasal [Flonase] 1 spr NS DAILY 05/17/18 [History] Fluticasone/Salmeterol [Advair Hfa 230-21 Mcg Inhaler] 1 puff IH DAILY 05/17/18 [History] Furosemide [Lasix] 20 mg PO DAILY 05/17/18 [History] Gabapentin [Neurontin] 600 mg PO TID 05/17/18 [History] Levothyroxine [Synthroid] [place] [address]/17/18 [History] Lisinopril [Zestril] 10 mg PO DAILY 05/17/18 [History] Loratadine [Claritin] 10 mg PO DAILY 05/17/18 [History] Lutein 20 mg PO DAILY 05/17/18 [History] Metformin HCl [Glucophage] 1,000 mg PO BID 05/17/18 [History] Metoprolol [Lopressor] 25 mg PO BID 05/17/18 [History] Pioglitazone [Actos] 15 mg PO DAILY 05/17/18 [History] SitaGLIPtin [Januvia] 100 mg PO DAILY 05/17/18 [History] Umeclidinium [place] [Incruse Ellipta] 62.5 mcg IH DAILY 05/17/18 [History] Vit A/Vit C/Vit E/Zinc/Copper [Preservision Areds Tablet] 1 tab PO DAILY [History] Warfarin [Coumadin] 6 mg PO [id number] 05/17/18 [History] Warfarin [Coumadin] 9 mg PO TH 05/17/18 [History] 3 Allergy/AdvReac Type Severity Reaction Status Date / Time No Known Allergies Allergy Verified 05/17/18 20:27 All Systems: The remainder of the systems were reviewed and are negative Physical Examination Vital Signs: Vital Signs, Last 4 Hours Temp Pulse Resp BP Pulse Ox 05/23/18 04:00 98.8 F 86 18 148/79 94 05/23/18 03:32 16 95 General appearance: lethargic (But arouses after persistent engagement) Eyes: nonicteric ENT: oropharynx moist Neck: JVD Effort: normal Auscultation: bilateral: diminished breath sounds Cardiovascular: regular rate and rhythm Gastrointestinal: normoactive bowel sounds, soft, other (Obese) Integumentary: normal Extremities: no cyanosis, no clubbing, pink and warm, edema normal mental status, non-focal exam mood appropriate Results - Laboratory Findings CBC and BMP: 05/22/18 03:12 05/22/18 03:12 ABG ABG pH 7.45 pH Units (7.32-7.45) 05/21/18 14:45 ABG pCO2 39 mmHg (35-45) 05/21/18 14:45 ABG pO2 83 mmHg (85-104) L 05/21/18 14:45 ABG O2 Saturation 97 % (95-98) 05/21/18 14:45 PT/INR, D-dimer PT 21.3 Seconds (9.4-12.1) H 05/23/18 05:11 Abnormal lab findings: Abnormal lab results WBC 13.3 K/mcL (4.3-11.1) H 05/22/18 03:12 RBC 3.41 M/mcL (4.19-5.50) L 05/22/18 03:12 Hgb 10.3 g/dL (12.9-16.9) L 05/22/18 03:12 Hct 32.5 % (37.5-50.1) L 05/22/18 03:12 RDW 16.0 % (11.5-14.5) H 05/22/18 03:12 Neutrophils # 9.8 K/mcL (1.6-8.9) H 05/22/18 03:12 Monocytes # 1.4 K/mcL (0.0-1.3) H 05/22/18 03:12 PT 21.3 Seconds (9.4-12.1) H 05/23/18 05:11 APTT 45.7 Seconds (26.0-36.0) H 05/17/18 19:27 ABG pO2 83 mmHg (85-104) L 05/21/18 14:45 ABG Total CO2 28 mEq/L (20-26) H 05/21/18 14:45 Glucose 136 mg/dL (70-105) H 05/22/18 03:12 POC Glucose 217 mg/dL (70-99) H 05/22/18 20:11 Phosphorus 2.2 mg/dL (2.7-4.5) L 05/18/18 03:53 Troponin I 0.04 ng/mL (< 0.04) H* 05/18/18 21:49 B-Natriuretic Peptide 308 pg/mL (Less than 100) H 05/18/18 21:51 Procalcitonin 0.13 ng/mL (<=0.07) H 05/20/18 18:37 - Diagnostic Findings Chest x-ray: report reviewed, image reviewed CT scan - chest: report reviewed, image reviewed - Clinical Findings Intake & Output: Intake & Output 05/22/18 05/22/18 05/23/18 15:59 23:59 07:59 Intake Total 360 / 360 100 / 100 Output Total 900 / 900 600 / 600 Balance -540 / -540 -500 / -500 Consult Discharge Plan - Plan Referrals: Shayy Rodgers MD [Primary Care Provider] -
[2018-05-23] MEDS: *HR* Acetylcysteine 20% 600 MG/3 ML ORAL SYRINGE PO SCH ×3 (07:24→11:09)
[2018-05-23] MEDS: Budesonide/Formoterol 160/4.5 MDI IH SCH (07:48)
--- NOTE | 2018-05-23 07:54 | Pulmonology Consult Note ---
Date of Encounter: 05/23/18 Time of Encounter: 07:53 Assessment and Plan (1) Acute respiratory failure with hypoxia Current Visit: Yes Status: Acute (2) (HFpEF) heart failure with preserved ejection fraction Current Visit: Yes Status: Acute (3) Pleural effusion Current Visit: Yes Status: Acute (4) KYLEE (obstructive sleep apnea) Current Visit: No Status: Chronic Past Med Surg Social Fam HX - Past Medical History Medical history: arthritis, atrial fibrillation, COPD, diabetes, GERD, hyperlipidemia, hypertension, thyroid disease, other Additional medical history: Hypothyroid. Sleep apnea Psychiatric history: no psych history - Past Surgical History Surgical History: cholecystectomy, knee replacement, orthopedic, other Additional surgical history: Gallbladder, bilateral knee replacement, Appendectomy, Right shoulder. - Social History Smoking Status: Former smoker Smokeless Tobacco Status: No Alcohol use: none Drug use: none - Family History Father Adopted: No Family Member Ethnicity: Non- Living Status: Hx Family Cardiac Disorders: No Hx Family Respiratory Disorders: Yes (Asbestosis) Hx Family Cancer: Yes (Lung CA) Hx Family GI Disorders: No Hx Family Endocrine Disorder: No Hx Family Neuromuscular Disorders: No Hx Family Neurologic Disorders: No Hx Family HEENT Disorders: No Hx Family Autoimmune Disorders: No Medications and Allergies Acetylcysteine [W-Adariy-j-Cysteine] 600 mg PO TIDAC 05/17/18 [History] Amitriptyline HCl 100 mg PO DAILY 05/17/18 [History] Aspirin [Ecotrin] 325 mg PO DAILY 05/17/18 [History] Atorvastatin Calcium [Lipitor] 20 mg PO HS 05/17/18 [History] FLUoxetine HCl [PROzac] 20 mg PO DAILY 05/17/18 [History] Finasteride [Proscar] 5 mg PO DAILY 05/17/18 [History] Fish Oil/Dha/Epa [Fish Oil 1,200 mg Fish Oil] 1 cap PO DAILY 05/17/18 [History] Fluticasone Propionate Nasal [Flonase] 1 spr NS DAILY 05/17/18 [History] Fluticasone/Salmeterol [Advair Hfa 230-21 Mcg Inhaler] 1 puff IH DAILY 05/17/18 [History] Furosemide [Lasix] 20 mg PO DAILY 05/17/18 [History] Gabapentin [Neurontin] 600 mg PO TID 05/17/18 [History] Levothyroxine [Synthroid] 125 mcg PO 0630 05/17/18 [History] Lisinopril [Zestril] 10 mg PO DAILY 05/17/18 [History] Loratadine [Claritin] 10 mg PO DAILY 05/17/18 [History] Lutein 20 mg PO DAILY 05/17/18 [History] Metformin HCl [Glucophage] 1,000 mg PO BID 05/17/18 [History] Metoprolol [Lopressor] 25 mg PO BID 05/17/18 [History] Pioglitazone [Actos] 15 mg PO DAILY 05/17/18 [History] SitaGLIPtin [Januvia] 100 mg PO DAILY 05/17/18 [History] Umeclidinium [place] [Incruse Ellipta] 62.5 mcg IH DAILY 05/17/18 [History] Vit A/Vit C/Vit E/Zinc/Copper [Preservision Areds Tablet] 1 tab PO DAILY [History] Warfarin [Coumadin] 6 mg PO SUMOTUWEFRSA 05/17/18 [History] Warfarin [Coumadin] 9 mg PO TH 05/17/18 [History] 3 Allergy/AdvReac Type Severity Reaction Status Date / Time No Known Allergies Allergy Verified 05/17/18 20:27 All Systems: The remainder of the systems were reviewed and are negative Physical Examination Vital Signs: Vital Signs, Last 4 Hours Temp Pulse Resp BP Pulse Ox 05/23/18 07:50 18 91 05/23/18 06:49 98.1 F 78 18 137/67 91 05/23/18 04:00 98.8 F 86 18 148/79 94 Results - Laboratory Findings CBC and BMP: 05/22/18 03:12 05/22/18 03:12 ABG ABG pH 7.45 pH Units (7.32-7.45) 05/21/18 14:45 ABG pCO2 39 mmHg (35-45) 05/21/18 14:45 ABG pO2 83 mmHg (85-104) L 05/21/18 14:45 ABG O2 Saturation 97 % (95-98) 05/21/18 14:45 PT/INR, D-dimer PT 21.3 Seconds (9.4-12.1) H 05/23/18 05:11 Abnormal lab findings: Abnormal lab results WBC 13.3 K/mcL (4.3-11.1) H 05/22/18 03:12 RBC 3.41 M/mcL (4.19-5.50) L 05/22/18 03:12 Hgb 10.3 g/dL (12.9-16.9) L 05/22/18 03:12 Hct 32.5 % (37.5-50.1) L 05/22/18 03:12 RDW 16.0 % (11.5-14.5) H 05/22/18 03:12 Neutrophils # 9.8 K/mcL (1.6-8.9) H 05/22/18 03:12 Monocytes # 1.4 K/mcL (0.0-1.3) H 05/22/18 03:12 PT 21.3 Seconds (9.4-12.1) H 05/23/18 05:11 APTT 45.7 Seconds (26.0-36.0) H 05/17/18 19:27 ABG pO2 83 mmHg (85-104) L 05/21/18 14:45 ABG Total CO2 28 mEq/L (20-26) H 05/21/18 14:45 Glucose 136 mg/dL (70-105) H 05/22/18 03:12 POC Glucose 217 mg/dL (70-99) H 05/22/18 20:11 Phosphorus 2.2 mg/dL (2.7-4.5) L 05/18/18 03:53 Troponin I 0.04 ng/mL (< 0.04) H* 05/18/18 21:49 B-Natriuretic Peptide 308 pg/mL (Less than 100) H 05/18/18 21:51 Procalcitonin 0.13 ng/mL (<=0.07) H 05/20/18 18:37 - Clinical Findings Intake & Output: Intake & Output 05/22/18 05/22/18 05/23/18 15:59 23:59 07:59 Intake Total 360 / 360 100 / 100 Output Total 900 / 900 600 / 600 Balance -540 / -540 -500 / -500 Consult Discharge Plan - Plan Referrals: Shayy Rodgers MD [Primary Care Provider] -
[2018-05-23] MEDS: Aspirin Enteric Coated 325 MG Tablet PO SCH (08:07)
[2018-05-23] MEDS: FLUoxetine 20 MG CAPSULE PO SCH (08:07)
[2018-05-23] MEDS: Furosemide 40 MG/4 ML VIAL IVP SCH (08:07)
[2018-05-23] MEDS: Gabapentin 300 MG CAPSULE PO SCH ×3 (08:07→19:33)
[2018-05-23] MEDS: Finasteride 5 MG TABLET PO SCH (08:07)
[2018-05-23] MEDS: Loratadine 10 MG TABLET PO SCH (08:07)
[2018-05-23] MEDS: Insulin LISPRO 300 UNITS/3 ML VIAL SQ SCH ×4 (08:08→19:36)
[2018-05-23] MEDS: Fluticasone Propionate Nasal 50 MCG/SPRAY BOTTLE NS SCH (08:18)
--- NOTE | 2018-05-23 08:23 | Internal Med Progress Note ---
Date of Encounter: 05/23/18 Time of Encounter: 11:00 - Assessment and plan (1) Acute respiratory failure with hypoxia Current Visit: Yes Status: Acute Assessment and plan: Patient slowly improving as he has now been weaned off BiPAP during the day and no longer requiring high levels of oxygen supplementation as he has been weaned down to 3.5 L from 7-[address] PA of the chest done today showed mild right and small left pleural effusion in addition to mild pericardial effusion. Consult pulmonology and appreciate recommendations (2) Pleural effusion Current Visit: Yes Status: Acute Assessment and plan: CT PA of the chest done today showed mild right and small left pleural effusion in addition to mild pericardial effusion. Pulmonology consulted and appreciate recommendations (3) Third degree heart block Current Visit: Yes Status: Acute Assessment and plan: Cardiology consulted; appreciate input. He is s/p PPM placement on 05/18/18. Patient now with mild pericardial effusion on CTA of the chest this morning Discussed with cardiology did not express concerns relations to continue with IV diuresis as above (4) COPD (chronic obstructive pulmonary disease) Current Visit: Yes Status: Chronic Assessment and plan: Patient requiring less O2 supplementation as above Pulmonology consulted with recommendations for oral prednisone Recommendations to continue oral N-acetylcysteine with optimal dosing 600 mg twice a day Qualifiers: COPD type: chronic bronchitis Chronic bronchitis type: unspecified Qualified Code(s): J42 - Unspecified chronic bronchitis (5) Hypotension Current Visit: Yes Status: Resolved Assessment and plan: Resolved. Normotensive currently, on Metoprolol 12.5mg BID. Qualifiers: Hypotension type: orthostatic hypotension Qualified Code(s): I95.1 - Orthostatic hypotension (6) Acute kidney injury Current Visit: Yes Status: Acute Assessment and plan: Resolved; continue to monitor (7) HTN (hypertension) Current Visit: Yes Status: Chronic Assessment and plan: Continue Lisinopril 10 mg QD and Metoprolol 12.5mg BID. Qualifiers: Hypertension type: essential hypertension Qualified Code(s): I10 - Essential (primary) hypertension (8) Atrial fibrillation Current Visit: Yes Status: Chronic Assessment and plan: Continue beta sami and coumadin as dosed by pharmacy. Qualifiers: Atrial fibrillation type: paroxysmal Qualified Code(s): I48.0 - Paroxysmal atrial fibrillation (9) Diabetes mellitus Current Visit: Yes Status: Chronic Assessment and plan: Continue accuchecks and moderate dose SSI QID AC/HS. Qualifiers: Diabetes mellitus type: type 2 Diabetes mellitus snf insulin use: unspecified snf insulin use status Diabetes mellitus complication status : with unspecified complications Qualified Code(s): E11.8 - Type 2 diabetes mellitus with unspecified complications (10) DVT prophylaxis Current Visit: Yes Status: Acute Assessment and plan: Pharmacy managing coumadin. Recheck PT/INR in AM. Continuing SCDs currently. - Time Spent With Patient Total time spent is greater than 50% in coordination of care (as documented) at patient's floor/unit and/or counseling patient: - Subjective Interval history: Patient still requiring higher amounts of O2 supplementation this morning status post pacemaker placement for third-degree heart block. - Constitutional Vitals: Temp Pulse Resp BP Pulse Ox 98.1 F 78 18 137/67 91 05/23/18 06:49 05/23/18 06:49 05/23/18 07:50 05/23/18 06:49 05/23/18 07:50 General appearance: Present: cooperative, A&O X 3, morbidly obese, pleasant, no acute distress, answers questions appropriately - Respiratory Respiratory exam: Present: CTAB. Absent: accessory muscle use, rales, rhonchi, wheezes - Cardiovascular Cardiovascular exam: Present: RRR, +S1, +S2. Absent: diastolic murmur, gallop, rubs, systolic murmur Internal Medicine: Result - Labs CBC & Chem 7: 05/23/18 09:37 05/23/18 09:37 - ABG Interpretation ABG results: ABG ABG pH 7.45 pH Units (7.32-7.45) 05/21/18 14:45 ABG pCO2 39 mmHg (35-45) 05/21/18 14:45 ABG pO2 83 mmHg (85-104) L 05/21/18 14:45 ABG O2 Saturation 97 % (95-98) 05/21/18 14:45 PT/INR, D-dimer PT 21.3 Seconds (9.4-12.1) H 05/23/18 05:11 - Impressions Impressions Chest CT 05/22/18 10:53 IMPRESSION: Pleural effusions with bibasilar atelectasis most consistent with mild congestive heart failure new when correlated to the prior CT. Mildly prominent mediastinal lymph nodes somewhat more pronounced when correlated to the prior exam likely benign and reactive. Mild pericardial effusion, new when correlated to prior exam. Partial visualization of a benign left renal cyst. D/ / 05/22/2018 12:38:52 Jayesh Cox MD / [email or web address] Interpreting Provider: Jayesh Cox MD - VTE Documentation of Mechanical Device: Intermittent pneumatic compression device Consult Discharge Plan - Plan Referrals: Shayy Rodgers MD [Primary Care Provider] -
[2018-05-23] MEDS: Furosemide 80 MG in 0.9 % Sodium Chloride 50 ML IVPB SCH ×2 (09:35→18:22)
[2018-05-23 10:15] LABS: Basophils # 0.1 K/mcL (0.0-0.2); Basophils % 0.4 %; Eosinophils # 0.3 K/mcL (0.0-0.6); Hemoglobin 10.7 g/dL (12.9-16.9); Immature Granulocytes % 0.4 % (0-4); Lymphocytes # 1.3 K/mcL (0.6-4.6); Lymphocytes % 9.6 %; Mean Corpuscular HGB Conc 31.5 g/dL (31.6-35.5); Mean Corpuscular Hemoglobin 29.1 pg (28.0-33.3); Mean Corpuscular Volume 92.4 fL (83.0-100.0); Monocytes # 1.2 K/mcL (0.0-1.3); Monocytes % 8.6 %; Neutrophils # 10.7 K/mcL (1.6-8.9); Platelet Count 330 K/mcL (140-400); Red Blood Count 3.68 M/mcL (4.19-5.50); Red Cell Distribution Width 15.9 % (11.5-14.5)
[2018-05-23 10:33] LABS: BUN/Creatinine Ratio 18 (6-26); Blood Urea Nitrogen 18 mg/dL (8-23); Carbon Dioxide 27 mEq/L (23-29); Chloride 99 mEq/L (98-107); Glucose 270 mg/dL (70-105); Osmolality,Calculated 287 (280-300); Potassium 3.8 mEq/L (3.5-5.1); Sodium 133 mEq/L (136-145); eGFR For African Americans > 60 (> 60); eGFR For Non-African Americans > 60 (> 60)
[2018-05-24] MEDS: Ipratropium/Albuterol Neb 3 ML IH SCH ×3 (04:14→11:18)
[2018-05-24 05:05] LABS: INR 1.8; Prothrombin Time 19.9 Seconds (9.4-12.1)
--- NOTE | 2018-05-24 06:56 | Pulmonology Progress Note ---
Date of Encounter: 05/24/18 Time of Encounter: 06:56 Assessment and Plan (1) Acute respiratory failure with hypoxia Current Visit: Yes Status: Acute This is multifactorial including COPD exacerbation and hydrostatic pulmonary edema from heart failure. Wean FiO2 to keep saturation greater than 88% Continue positive airway pressure at night Encourage out of bed to chair ambulation and incentive spirometry to mitigate the effects of atelectasis and VQ mismatching (2) COPD exacerbation Current Visit: No Status: Acute Recommend prednisone 40 mg 5 day Continue bronchodilators Outpatient pulmonary follow-up (3) KYLEE (obstructive sleep apnea) Current Visit: No Status: Chronic Continue CPAP at night 12 cm H2O (4) (HFpEF) heart failure with preserved ejection fraction Current Visit: Yes Status: Acute Remains volume overloaded continue diuresis as tolerated by kidney function: Negative for 24 hours should be around 1 L defer to primary medicine service for management of this (5) Pleural effusion Current Visit: Yes Status: Acute These are small bilateral effusions related to heart failure do not recommend thoracentesis at this time (6) Third degree heart block Current Visit: Yes Status: Acute Status post permanent pacemaker cardiology following Pulmonary will sign off please call with any questions thank you for allowing us to participate in the care of this patient Recommend follow-up with his primary spot man within 2-4 weeks of the time of discharge Subjective Principal diagnosis: CHB Interval history: No acute events overnight. Oxygen saturation is improved and amount of supplemental oxygen has been able to be decreased. Patient wore BiPAP all night. He says that breathing is "still little off" but has generally been convalescing. He sitting up eating breakfast Objective PUL Vital signs: Last Vital Signs Temp 98.3 F 05/24/18 04:42 Pulse 87 05/24/18 04:42 Resp 16 05/24/18 04:42 BP 121/61 05/24/18 04:42 Pulse Ox 92 05/24/18 04:42 General appearance: no acute distress Eyes: nonicteric Neck: supple Auscultation: bilateral: diminished breath sounds, rales Cardiovascular: regular rate and rhythm Gastrointestinal: normoactive bowel sounds Extremities: edema Musculoskeletal: no deformities normal mental status mood appropriate Results - Laboratory Findings CBC and BMP: 05/24/18 09:09 05/23/18 09:37 ABG ABG pH 7.45 pH Units (7.32-7.45) 05/21/18 14:45 ABG pCO2 39 mmHg (35-45) 05/21/18 14:45 ABG pO2 83 mmHg (85-104) L 05/21/18 14:45 ABG O2 Saturation 97 % (95-98) 05/21/18 14:45 PT/INR, D-dimer PT 19.9 Seconds (9.4-12.1) H 05/24/18 04:18 Abnormal lab findings: Abnormal lab results WBC 13.5 K/mcL (4.3-11.1) H 05/23/18 09:37 RBC 3.68 M/mcL (4.19-5.50) L 05/23/18 09:37 Hgb 10.7 g/dL (12.9-16.9) L 05/23/18 09:37 Hct 34.0 % (37.5-50.1) L 05/23/18 09:37 MCHC 31.5 g/dL (31.6-35.5) L 05/23/18 09:37 RDW 15.9 % (11.5-14.5) H 05/23/18 09:37 Neutrophils # 10.7 K/mcL (1.6-8.9) H 05/23/18 09:37 PT 19.9 Seconds (9.4-12.1) H 05/24/18 04:18 APTT 45.7 Seconds (26.0-36.0) H 05/17/18 19:27 ABG pO2 83 mmHg (85-104) L 05/21/18 14:45 ABG Total CO2 28 mEq/L (20-26) H 05/21/18 14:45 Sodium 133 mEq/L (136-145) L 05/23/18 09:37 Glucose 270 mg/dL (70-105) H 05/23/18 09:37 POC Glucose 164 mg/dL (70-99) H 05/23/18 15:57 Phosphorus 2.2 mg/dL (2.7-4.5) L 05/18/18 03:53 Troponin I 0.04 ng/mL (< 0.04) H* 05/18/18 21:49 B-Natriuretic Peptide 308 pg/mL (Less than 100) H 05/18/18 21:51 Procalcitonin 0.13 ng/mL (<=0.07) H 05/20/18 18:37 - Clinical Findings Intake & Output: Intake & Output 05/23/18 05/23/18 05/24/18 15:59 23:59 07:59 Intake Total 878 / 878 340 / 340 Output Total 1450 / 1450 600 / 600 Balance -572 / -572 -260 / -260 Weight 151.2 kg - VTE Documentation of Mechanical Device: Intermittent pneumatic compression device Consult Discharge Plan - Plan Referrals: Shayy Rodgers MD [Primary Care Provider] -
[2018-05-24] MEDS: Budesonide/Formoterol 160/4.5 MDI IH SCH (07:43)
[2018-05-24] MEDS: Finasteride 5 MG TABLET PO SCH (08:41)
[2018-05-24] MEDS: Aspirin Enteric Coated 325 MG Tablet PO SCH (08:42)
[2018-05-24] MEDS: Gabapentin 300 MG CAPSULE PO SCH (08:42)
[2018-05-24] MEDS: Loratadine 10 MG TABLET PO SCH (08:42)
[2018-05-24] MEDS: Insulin LISPRO 300 UNITS/3 ML VIAL SQ SCH (08:42)
[2018-05-24] MEDS: FLUoxetine 20 MG CAPSULE PO SCH (08:42)
[2018-05-24] MEDS: Furosemide 80 MG in 0.9 % Sodium Chloride 50 ML IVPB SCH (08:43)
--- NOTE | 2018-05-24 09:05 | Internal Med Progress Note ---
Date of Encounter: 05/24/18 - Assessment and plan (1) Acute respiratory failure with hypoxia Current Visit: Yes Status: Acute (2) (HFpEF) heart failure with preserved ejection fraction Current Visit: Yes Status: Acute (3) Pleural effusion Current Visit: Yes Status: Acute (4) Third degree heart block Current Visit: Yes Status: Acute (5) COPD (chronic obstructive pulmonary disease) Current Visit: Yes Status: Chronic Qualifiers: COPD type: chronic bronchitis Chronic bronchitis type: unspecified Qualified Code(s): J42 - Unspecified chronic bronchitis (6) Hypotension Current Visit: Yes Status: Resolved Qualifiers: Hypotension type: orthostatic hypotension Qualified Code(s): I95.1 - Orthostatic hypotension (7) Acute kidney injury Current Visit: Yes Status: Acute (8) HTN (hypertension) Current Visit: Yes Status: Chronic Qualifiers: Hypertension type: essential hypertension Qualified Code(s): I10 - Essential (primary) hypertension (9) Atrial fibrillation Current Visit: Yes Status: Chronic Qualifiers: Atrial fibrillation type: paroxysmal Qualified Code(s): I48.0 - Paroxysmal atrial fibrillation (10) Diabetes mellitus Current Visit: Yes Status: Chronic Qualifiers: Diabetes mellitus type: type 2 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 - Constitutional Vitals: Temp Pulse Resp BP Pulse Ox 98.1 F 86 18 121/70 92 05/24/18 07:42 05/24/18 07:42 05/24/18 07:45 05/24/18 07:42 05/24/18 07:45 General appearance: Present: cooperative, A&O X 3, morbidly obese, pleasant, no acute distress, answers questions appropriately Internal Medicine: Result - Labs CBC & Chem 7: 05/23/18 09:37 05/23/18 09:37 Labs: Short CBC 05/23/18 Range/Units 09:37 WBC 13.5 H (4.3-11.1) K/mcL Hgb 10.7 L (12.9-16.9) g/dL Hct 34.0 L (37.5-50.1) % Plt Count 330 (140-400) K/mcL Neutrophils # 10.7 H (1.6-8.9) K/mcL BMP 05/23/18 09:37 Sodium 133 L Potassium 3.8 Chloride 99 Carbon Dioxide 27 BUN 18 Creatinine 1.02 Glucose 270 H Calcium 9.0 - ABG Interpretation ABG results: ABG ABG pH 7.45 pH Units (7.32-7.45) 05/21/18 14:45 ABG pCO2 39 mmHg (35-45) 05/21/18 14:45 ABG pO2 83 mmHg (85-104) L 05/21/18 14:45 ABG O2 Saturation 97 % (95-98) 05/21/18 14:45 PT/INR, D-dimer PT 19.9 Seconds (9.4-12.1) H 05/24/18 04:18 - VTE Documentation of Mechanical Device: Intermittent pneumatic compression device Consult Discharge Plan - Plan Referrals: Shayy Rodgers MD [Primary Care Provider] -
[2018-05-24 09:25] LABS: Basophils # 0.1 K/mcL (0.0-0.2); Basophils % 0.4 %; Eosinophils # 0.3 K/mcL (0.0-0.6); Eosinophils % 2.3 %; Hemoglobin 10.8 g/dL (12.9-16.9); Immature Granulocytes % 0.5 % (0-4); Lymphocytes # 1.3 K/mcL (0.6-4.6); Lymphocytes % 10.4 %; Mean Corpuscular HGB Conc 31.8 g/dL (31.6-35.5); Mean Corpuscular Hemoglobin 29.3 pg (28.0-33.3); Mean Corpuscular Volume 92.1 fL (83.0-100.0); Mean Platelet Volume 9.4 fL (9.4-12.4); Monocytes # 1.1 K/mcL (0.0-1.3); Monocytes % 8.4 %; Platelet Count 308 K/mcL (140-400); Red Blood Count 3.69 M/mcL (4.19-5.50); Red Cell Distribution Width 15.8 % (11.5-14.5)
[2018-05-24] MEDS: Piperacillin/Tazobactam 3.375 GM in 0.9 % Sodium Chloride Mini Bag 100 ML IVPB SCH (09:30)
[2018-05-24 09:47] LABS: BUN/Creatinine Ratio 18 (6-26); Blood Urea Nitrogen 19 mg/dL (8-23); Calcium 8.8 mg/dL (8.6-10.3); Carbon Dioxide 28 mEq/L (23-29); Chloride 101 mEq/L (98-107); Glucose 208 mg/dL (70-105); Osmolality,Calculated 286 (280-300); Potassium 3.7 mEq/L (3.5-5.1); Sodium 134 mEq/L (136-145); eGFR For African Americans > 60 (> 60); eGFR For Non-African Americans > 60 (> 60)
[2018-05-24] MEDS: Fluticasone Propionate Nasal 50 MCG/SPRAY BOTTLE NS SCH (10:04)
[2018-05-24 11:38] VITALS: BP 114/78
--- NOTE | 2018-05-24 11:49 | Discharge Summary ---
- NOTES TO OUTPATIENT PROVIDER Notes to Outpatient Provider: Patient will follow-up with cardiology status post pacemaker placement and heart failure with preserved ejection fraction Orders not resulted at time of discharge: Pending orders 05/20/18 18:37 Culture,Blood [BC] Routine 05/25/18 04:00 PT/INR [Prothrombin Time INR] [COAG] AM 0400 05/26/18 04:00 INR/PT [Prothrombin Time INR] [COAG] AM 0400 05/27/18 04:00 INR/PT [Prothrombin Time INR] [COAG] AM 0400 05/28/18 04:00 INR/PT [Prothrombin Time INR] [COAG] AM 0400 Date of Encounter: 05/24/18 Time of Encounter: 11:00 - Discharge Diagnosis (1) Acute respiratory failure with hypoxia Priority: Primary Status: Acute (2) (HFpEF) heart failure with preserved ejection fraction Priority: Primary Status: Acute (3) Pleural effusion Priority: Primary Status: Acute (4) Third degree heart block Priority: Primary Status: Acute (5) COPD (chronic obstructive pulmonary disease) Priority: Secondary Status: Chronic Qualifiers: COPD type: chronic bronchitis Chronic bronchitis type: unspecified Qualified Code(s): J42 - Unspecified chronic bronchitis (6) Hypotension Priority: Secondary Status: Resolved Qualifiers: Hypotension type: orthostatic hypotension Qualified Code(s): I95.1 - Orthostatic hypotension (7) Acute kidney injury Priority: Secondary Status: Acute (8) HTN (hypertension) Priority: Secondary Status: Chronic Qualifiers: Hypertension type: essential hypertension Qualified Code(s): I10 - Essential (primary) hypertension (9) Atrial fibrillation Priority: Secondary Status: Chronic Qualifiers: Atrial fibrillation type: paroxysmal Qualified Code(s): I48.0 - Paroxysmal atrial fibrillation (10) Diabetes mellitus Priority: Secondary Status: Chronic Qualifiers: Diabetes mellitus type: type 2 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 fib on Coumadin, history of DVT, and COPD 3 L dependent who presented to the ER on 05/20/18 for shortness of breath and bradycardia. Patient states that he checks his oxygen level every morning and his pulse and his heart rate this morning was in the 40s. He has had associated dizziness over the past week but denies syncope, palpitations, chest pain. In the ER, patient was found to have heart rate in the 40s with EKG that showed third-degree heart block. Patient was admitted to the progressive unit for further management. During patients hospital stay, cardiology was consulted for recommendations for permanent pacemaker placement which was completed. Patient also experienced acute on chronic hypoxic respiratory failure due to suspected heart failure with preserved ejection fraction. Patients O2 requirements returned to baseline after IV diuresis. Patient will be discharged to follow-up with cardiology as an outpatient. - Time Spent with Patient Total time spent providing and/or coordinating discharge services: - Discharge Medications Prescriptions: OxyCODONE Immed Rel [Roxicodone 5 MG] 5 mg PO Q8HR PRN 3 Days #9 tablet PRN Reason: Severe Pain Home Medications: Acetylcysteine [E-Zkxagz-f-Cysteine] 600 mg PO TIDAC 05/17/18 [History] Amitriptyline HCl 100 mg PO DAILY 05/17/18 [History] Aspirin [Ecotrin] 325 mg PO DAILY 05/17/18 [History] Atorvastatin Calcium [Lipitor] 20 mg PO HS 05/17/18 [History] FLUoxetine HCl [Prozac] 20 mg PO DAILY 05/17/18 [History] Finasteride [Proscar] 5 mg PO DAILY 05/17/18 [History] Fish Oil/Dha/Epa [Fish Oil 1,200 mg Fish Oil] 1 cap PO DAILY 05/17/18 [History] Fluticasone Propionate Nasal [Flonase] 1 spr NS DAILY 05/17/18 [History] Fluticasone/Salmeterol [Advair Hfa 230-21 Mcg Inhaler] 1 puff IH DAILY 05/17/18 [History] Furosemide [Lasix] 20 mg PO DAILY 05/17/18 [History] Gabapentin [Neurontin] 600 mg PO TID 05/17/18 [History] Levothyroxine [Synthroid] 125 mcg PO 0630 05/17/18 [History] Lisinopril [Zestril] 10 mg PO DAILY 05/17/18 [History] Loratadine [Claritin] 10 mg PO DAILY 05/17/18 [History] Lutein 20 mg PO DAILY 05/17/18 [History] Metformin HCl [Glucophage] 1,000 mg PO BID 05/17/18 [History] Metoprolol [Lopressor] 25 mg PO BID 05/17/18 [History] Pioglitazone [Actos] 15 mg PO DAILY 05/17/18 [History] SitaGLIPtin [Januvia] 100 mg PO DAILY 05/17/18 [History] Umeclidinium [place] [Incruse Ellipta] 62.5 mcg IH DAILY 05/17/18 [History] Vit A/Vit C/Vit E/Zinc/Copper [Preservision Areds Tablet] 1 tab PO DAILY [History] Warfarin [Coumadin] 6 mg PO SUMOTUWEFRSA 05/17/18 [History] Warfarin [Coumadin] 9 mg PO TH 05/17/18 [History] OxyCODONE Immed Rel [Roxicodone 5 MG] 5 mg PO Q8HR PRN 3 Days #9 tablet [Rx] Allergies/Adverse Reactions: 3 Allergy/AdvReac Type Severity Reaction Status Date / Time No Known Allergies Allergy Verified 05/17/18 20:27 Date of admission: 05/20/18 14:24 Primary care physician: Shayy [facility] Consults: 05/21/18 08:31 Consult to Nurse Navigator [CONS] Routine Comment: 05/23/18 07:40 Consult to Pulmonology [CONS] Routine Consulting Provider: [facility] Reason for Consult: hypoxia Call Completed: Yes - Constitutional Vitals: Temp Pulse Resp BP Pulse Ox 98.0 F 88 18 114/78 91 05/24/18 11:33 05/24/18 11:33 05/24/18 11:33 05/24/18 11:33 05/24/18 11:33 General appearance: Present: cooperative, A&O X 3, morbidly obese, pleasant, no acute distress, answers questions appropriately - Respiratory Respiratory exam: Present: CTAB. Absent: accessory muscle use, rales, rhonchi, wheezes - Cardiovascular Cardiovascular exam: Present: RRR, +S1, +S2. Absent: diastolic murmur, gallop, rubs, systolic murmur - Patient Status Disposition: Home, Self-Care Condition: Undetermined - Discharge Instructions Instructions: Heart Failure (DC), Pacemaker (DC), Using Oxygen at Home (DC), Bradycardia (DC) Follow Up With: Christi Martinez MD [Partnered Physician] - 05/30/18 1:00 pm Ba Mohr CNP [Advanced Practice Nurse] - (Office will call patient at home will appointment date and time) Shayy Rodgers MD [Primary Care Provider] - 05/31/18 11:45 am - VTE Documentation of Mechanical Device: Intermittent pneumatic compression device
[2018-05-24] MEDS ORDERED: *HR* Warfarin 3 MG TABLET PO ONE (18:00)
== END 2018-05-24 13:51 | disposition home or self-care (01) | DRG 242 ==
LOC: EMEROO 18:17 → 2NENU 18:17 → 2NNU 05-18 23:16 → SUATTDRO 05-20 14:24
PROVIDERS: ADMIT Family Medicine; ATTEND Hospitalist

== ENCOUNTER 2018-05-26 12:18 | Inpatient (IN) ==
--- NOTE | 2018-05-26 12:31 | Emergency Department Note ---
Disposition Clinical Impression: Weakness, Status post cardiac pacemaker procedure Dyspnea Qualifiers: Dyspnea type: unspecified Qualified Code(s): R06.00 - Dyspnea, unspecified Pulmonary embolism Qualifiers: Pulmonary embolism type: other Chronicity: unspecified Acute cor pulmonale presence: without acute cor pulmonale Qualified Code(s): I26.99 - Other pulmonary embolism without acute cor pulmonale Pneumonia Qualifiers: Pneumonia type: due to unspecified organism Laterality: right Lung location: lower lobe of lung Qualified Code(s): J18.1 - Lobar pneumonia, unspecified organism Disposition: Admitted As Inpatient Condition: Fair Referrals: Shayy Rodgers MD [Primary Care Provider] - Time of Disposition: 16:15 General Adult HPI - General Stated complaint: weakness Time Seen by Provider: 05/26/18 12:27 Source: patient, family Mode of arrival: EMS Limitations: no limitations Nursing Notes Reviewed: Yes Vital Signs Reviewed: Yes - History of Present Illness HPI Narrative: 77-year-old male persists for evaluation of weakness. Appears to be generally weak. Family provided history states the patient was recently hospitalized and discharged last week after pacemaker was placed for bradycardia. Patient is also being treated for pneumonia. Patient states that he has been feeling short of breath. Dyspnea appears to be worse with exertion. Patient typically is oxygen dependent on 3 L at home. Patient denies any chest pain. Denies any fevers. Reports a cough. Family states the patient is not acting right. Family stated the patient's been slow to answer. Patient states that he did have a mechanical fall yesterday and hit his head without loss of conscious. - Related Data Home Medications Medication Instructions Recorded Confirmed Acetylcysteine 600 mg PO TIDAC 05/17/18 05/26/18 [I-Vazfpg-b-Cysteine] Amitriptyline HCl 100 mg PO DAILY 05/17/18 05/26/18 Aspirin [Ecotrin] 325 mg PO DAILY 05/17/18 05/26/18 Atorvastatin Calcium [Lipitor] 20 mg PO HS 05/17/18 05/26/18 FLUoxetine HCl [Prozac] 20 mg PO DAILY 05/17/18 05/26/18 Finasteride [Proscar] 5 mg PO DAILY 05/17/18 05/26/18 Fish Oil/Dha/Epa [Fish Oil 1,200 1 cap PO DAILY 05/17/18 05/26/18 mg Fish Oil] Fluticasone Propionate Nasal 1 spr NS DAILY 05/17/18 05/26/18 [Flonase] Fluticasone/Salmeterol [Advair Hfa 1 puff IH DAILY 05/17/18 05/26/18 230-21 Mcg Inhaler] Furosemide [Lasix] 20 mg PO DAILY 05/17/18 05/26/18 Gabapentin [Neurontin] 600 mg PO TID 05/17/18 05/26/18 Levothyroxine [Synthroid] [place] [address]/17/18 05/26/18 Lisinopril [Zestril] 10 mg PO DAILY 05/17/18 05/26/18 Loratadine [Claritin] 10 mg PO DAILY 05/17/18 05/26/18 Lutein 20 mg PO DAILY 05/17/18 05/26/18 Metformin HCl [Glucophage] 1,000 mg PO BID 05/17/18 05/26/18 Metoprolol [Lopressor] 25 mg PO BID 05/17/18 05/26/18 Pioglitazone [Actos] 15 mg PO DAILY 05/17/18 05/26/18 SitaGLIPtin [Januvia] 100 mg PO DAILY 05/17/18 05/26/18 Umeclidinium [place] [Incruse 62.5 mcg IH DAILY 05/17/18 05/26/18 Ellipta] Vit A/Vit C/Vit E/Zinc/Copper 1 tab PO DAILY 05/17/18 05/26/18 [Preservision Areds Tablet] Warfarin [Coumadin] 6 mg PO SUMOTUWEFR 05/17/18 05/26/18 Warfarin [Coumadin] 9 mg PO THSA 05/17/18 05/26/18 Previous Rx's Medication Instructions Recorded OxyCODONE Immed Rel [Roxicodone 5 5 mg PO Q8HR PRN 3 Days #9 tablet 05/24/18 MG] Allergies Allergy/AdvReac Type Severity Reaction Status Date / Time No Known Allergies Allergy Verified 05/17/18 20:27 All systems ED: reviewed and negative except as stated. Constitutional: Denies: fever Cardiovascular: Denies: chest pain Respiratory: Reports: cough, dyspnea Gastrointestinal: Denies: abdominal pain, nausea, vomiting Musculoskeletal: Denies: back pain Past Medical History - Past Medical History Source: patient Medical history: Reports: arthritis, atrial fibrillation, COPD, diabetes, GERD, hyperlipidemia, hypertension, thyroid disease, other Surgical history: Reports: cholecystectomy, knee replacement, orthopedic, other Psychiatric history: Reports: no psych history - Social History Smoking Status: Former smoker Smokeless Tobacco Status: No Alcohol use: Reports: none Drug use: Reports: none Physical Exam - General Limitations: no limitations General appearance: alert, in no apparent distress - Head Head exam: normocephalic, normal inspection, other (Small abrasion to the top of the scalp) - Eye Eye exam: Present: normal appearance, PERRL, EOMI. Absent: nystagmus, mydriasis - ENT ENT exam: normal exam, normal oropharynx, mucous membranes moist - Neck Neck exam: Present: normal inspection - Chest Chest inspection: Present: normal inspection, symmetric chest wall rise, other ( Pacemaker dressing in place. There is no erythema or drainage over the insertion site.) - Respiratory Respiratory exam: Present: normal lung sounds bilaterally. Absent: respiratory distress - Cardiovascular Cardiovascular exam: Present: regular rate, normal rhythm. Absent: systolic murmur - Abdominal Exam Abdominal exam: Present: soft, Non-Tender - Extremities Exam Extremities exam: Present: normal inspection. Absent: pedal edema - Expanded Lower Extremity Exam Neurovascular/Tendon exam: Present: normal capillary refill - Back Exam Back exam: Present: normal inspection - Neurological Exam Neurological exam: Present: alert, oriented X3, CN II-XII intact - Expanded Neurological Exam Patient oriented to: Present: person Speech: Present: fluid speech Cranial nerves: EOM function (II, III, IV, ): Normal, facial sensation (V): Normal, facial palsy (VII): Normal, spinal accessory function (XI): Normal, tongue deviation (XII): Normal Motor strength - LUE: 5/5 Motor strength - RUE: 5/5 Motor strength - LLE: 5/5 Motor strength - RLE: 5/5 Coma Scale Eye Opening: Spontaneous Coma Scale Motor Response: Obeys Commands Coma Scale Verbal Response: Oriented Coma Scale Total: 15 - Skin Skin exam: Present: warm, dry, intact, normal color Course Course Narrative: Patient seen and examined upon EMS arrival. Patient is tachycardic. Patient does have history of fall on Coumadin. Patient will get a CT of the head. Patient also get extensive evaluation with labs, EKG, chest x-ray. Patient does not appear fluid overloaded. Patient is tachycardic. Patient will get a small fluid challenge. Patient also get further evaluation to evaluate the etiology of the tachycardia and concerns for infection. Disposition likely admission. - Reevaluation(s) Reevaluation #1: Patient seen and examined. Bedside ultrasound does reveal pericardial fluid. Patient Pericardial fluid evident on prior imaging during the hospital course. Given the patient's dyspnea as well as recent procedure with permanent pacemaker the patient will get a formal echo for concerns of tamponade. Patient 's labs reviewed increasing white count with evidence of pleural effusion dyspnea. Concerns of possible pneumonia within the pleural effusions. Patient will also get broad-spectrum coverage given recent hospitalization and dyspnea. Time: 13:30 - Consultations Consultation #1: Discussed case with Cardiology Dr. Donohue. Time: 13:47 Consultation #2: [employer] states the patient has been A. fib approximately 40% of the time. Repeat EKG shows A. fib with RVR rate of 107. Time: 14:11 Vital Signs Temperature 98.2 F 05/26/18 12:19 Pulse Rate 129 05/26/18 12:19 Respiratory Rate 20 05/26/18 12:19 Blood Pressure 131/84 05/26/18 12:19 O2 Sat by Pulse Oximetry 94 05/26/18 12:19 Temperature 98.2 F 05/26/18 12:19 Pulse Rate 117 05/26/18 16:30 Respiratory Rate 20 05/26/18 16:30 Blood Pressure 127/72 05/26/18 16:30 O2 Sat by Pulse Oximetry 92 05/26/18 16:30 Oxygen Delivery Oxygen Delivery Nasal Cannula Medical Decision Making - [facility] Narrative Medical decision making narrative: Patient presents for concerns of generalized weakness. Patient recently was hospitalized with a permanent pacemaker treated COPD exacerbation. Patient has had a productive cough. Patient had a recent procedure and had evidence of pericardial fluid and a stat echo was ordered. Patient also had CT which showed small subsegmental right lower lobe PE with bilateral infiltrates. Patient is chronically anticoagulated with Coumadin is subtherapeutic. Patient was given heparin as he subtherapeutic in the setting of PE. Patient will be admitted to the hospital service for further evaluation and monitoring. - Medical Records Medical records reviewed: Yes I reviewed the patient's medical records. Records view chest the patient does have a recent hospitalization within the past month for generalized weakness. Patient was found to be bradycardic which prompted a permanent pacemaker. Patient also had elements of a COPD exacerbation. Patient was treated symptomatically and discharged to home. Impressions: LVEF 60%. Normal LV chamber size and function. Mild concentric left ventricular hypertrophy. Indeterminate diastolic function. Grossly, mildly dilated right ventricle with normal function. Mild aortic sclerosis suggested by Doppler. Mean gradient 9 mmHg. No evidence of pulmonary hypertension. RVSP not well obtained and could be underestimated. - Lab Data Result diagrams: 05/26/18 12:42 05/26/18 12:42 Lab Results 05/26/18 05/26/18 05/26/18 Range/Units 12:42 12:42 12:42 WBC 17.0 H (4.3-11.1) K/mcL RBC 4.37 (4.19-5.50) M/mcL Hgb 13.0 D (12.9-16.9) g/dL Hct 40.1 (37.5-50.1) % MCV 91.8 (83.0-100.0) fL MCH 29.7 (28.0-33.3) pg MCHC 32.4 (31.6-35.5) g/dL RDW 15.7 H (11.5-14.5) % Plt Count 490 H D (140-400) K/mcL MPV 9.6 (9.4-12.4) fL Immature Gran % 0.9 (0-4) % Seg Neutrophils % 81.5 % Lymphocytes % 6.4 % Monocytes % 10.7 % Eosinophils % 0.2 % Basophils % 0.3 % Neutrophils # 13.8 H (1.6-8.9) K/mcL Lymphocytes # 1.1 (0.6-4.6) K/mcL Monocytes # 1.8 H (0.0-1.3) K/mcL Eosinophils # 0.0 (0.0-0.6) K/mcL Basophils # 0.1 (0.0-0.2) K/mcL PT (9.4-12.1) Seconds INR APTT (26.0-36.0) Seconds Sodium 135 L (136-145) mEq/L Potassium 4.1 (3.5-5.1) mEq/L Chloride 100 (98-107) mEq/L Carbon Dioxide 26 (23-29) mEq/L BUN 26 H (8-23) mg/dL Creatinine 1.24 (0.70-1.30) mg/dL Est GFR ( Amer) > 60 (> 60) Est GFR (Non-Af Amer) 56 L (> 60) BUN/Creatinine Ratio 21 (6-26) Glucose 250 H (70-105) mg/dL Calculated Osmolality 293 (280-300) Lactic Acid 2.0 (0.5-2.2) mmol/L Calcium 9.5 (8.6-10.3) mg/dL Magnesium 2.1 (1.6-2.6) mg/dL Total Bilirubin 1.0 (0.3-1.0) mg/dL AST 22 (13-39) Units/L ALT 27 (7-52) Units/L Alkaline Phosphatase 58 (34-104) Units/L Troponin I 0.03 (< 0.04) ng/mL B-Natriuretic Peptide (Less than 100) pg/mL Serum Total Protein 7.7 (6.4-8.9) g/dL Albumin 3.5 (3.5-5.7) g/dL Globulin 4.2 H (2.4-3.5) g/dL Albumin/Globulin Ratio 0.8 L (1.1-2.2) 05/26/18 05/26/18 05/26/18 Range/Units 13:43 13:43 16:15 WBC (4.3-11.1) K/mcL RBC (4.19-5.50) M/mcL Hgb (12.9-16.9) g/dL Hct (37.5-50.1) % MCV (83.0-100.0) fL MCH (28.0-33.3) pg MCHC (31.6-35.5) g/dL RDW (11.5-14.5) % Plt Count (140-400) K/mcL MPV (9.4-12.4) fL Immature Gran % (0-4) % Seg Neutrophils % % Lymphocytes % % Monocytes % % Eosinophils % % Basophils % % Neutrophils # (1.6-8.9) K/mcL Lymphocytes # (0.6-4.6) K/mcL Monocytes # (0.0-1.3) K/mcL Eosinophils # (0.0-0.6) K/mcL Basophils # (0.0-0.2) K/mcL PT 20.0 H (9.4-12.1) Seconds INR 1.8 APTT 33.8 (26.0-36.0) Seconds Sodium (136-145) mEq/L Potassium (3.5-5.1) mEq/L Chloride (98-107) mEq/L Carbon Dioxide (23-29) mEq/L BUN (8-23) mg/dL Creatinine (0.70-1.30) mg/dL Est GFR ( Amer) (> 60) Est GFR (Non-Af Amer) (> 60) BUN/Creatinine Ratio (6-26) Glucose (70-105) mg/dL Calculated Osmolality (280-300) Lactic Acid (0.5-2.2) mmol/L Calcium (8.6-10.3) mg/dL Magnesium (1.6-2.6) mg/dL Total Bilirubin (0.3-1.0) mg/dL AST (13-39) Units/L ALT (7-52) Units/L Alkaline Phosphatase (34-104) Units/L Troponin I (< 0.04) ng/mL B-Natriuretic Peptide 96 (Less than 100) pg/mL Serum Total Protein (6.4-8.9) g/dL Albumin (3.5-5.7) g/dL Globulin (2.4-3.5) g/dL Albumin/Globulin Ratio (1.1-2.2) - EKG Data EKG #1 EKG attestation: Yes I reviewed and interpreted this EKG. EKG shows normal: sinus rhythm Rate: tachycardia Rhythm: NSR [place]/QRS: normal T wave inversions noted in: II, III, aVF, v3, v4, v5, v6 When compared to previous EKG there are: changes noted Interpretation: no acute changes, nonspecific ST-T wave changes S.B.A.R. - S.B.A.R. Situation: Demographics Background: Presenting Complaint Assessment: Vital Signs, Course and respsone to treatment, Patient/Family Expectation Recommendation: Barrier(s) to disposition, Recommendation based on pending studies, treatments, or consults S.B.A.R. Report Given to: Dr. Tracey Jones Repor Time: 17:15
[2018-05-26] MEDS ORDERED: 0.9 % Sodium Chloride 500 ML IVC ONE (12:38)
[2018-05-26 13:02] LABS: Basophils # 0.1 K/mcL (0.0-0.2); Basophils % 0.3 %; Eosinophils % 0.2 %; Hematocrit 40.1 % (37.5-50.1); Immature Granulocytes % 0.9 % (0-4); Lymphocytes # 1.1 K/mcL (0.6-4.6); Lymphocytes % 6.4 %; Mean Corpuscular HGB Conc 32.4 g/dL (31.6-35.5); Mean Corpuscular Hemoglobin 29.7 pg (28.0-33.3); Mean Corpuscular Volume 91.8 fL (83.0-100.0); Mean Platelet Volume 9.6 fL (9.4-12.4); Monocytes # 1.8 K/mcL (0.0-1.3); Monocytes % 10.7 %; Neutrophils # 13.8 K/mcL (1.6-8.9); Platelet Count 490 K/mcL (140-400); Red Blood Count 4.37 M/mcL (4.19-5.50); Red Cell Distribution Width 15.7 % (11.5-14.5); Segmented Neutrophils % 81.5 %
[2018-05-26 13:22] LABS: Alanine Aminotransferase 27 Units/L (7-52); Albumin 3.5 g/dL (3.5-5.7); Albumin/Globulin Ratio 0.8 (1.1-2.2); Alkaline Phosphatase 58 Units/L (34-104); Aspartate Amino Transferase 22 Units/L (13-39); BUN/Creatinine Ratio 21 (6-26); Blood Urea Nitrogen 26 mg/dL (8-23); Calcium 9.5 mg/dL (8.6-10.3); Carbon Dioxide 26 mEq/L (23-29); Chloride 100 mEq/L (98-107); Globulin 4.2 g/dL (2.4-3.5); Glucose 250 mg/dL (70-105); Magnesium 2.1 mg/dL (1.6-2.6); Osmolality,Calculated 293 (280-300); Potassium 4.1 mEq/L (3.5-5.1); Sodium 135 mEq/L (136-145); Total Protein 7.7 g/dL (6.4-8.9); Troponin I 0.03 ng/mL (< 0.04); eGFR For African Americans > 60 (> 60); eGFR For Non-African Americans 56 (> 60)
[2018-05-26] MEDS ORDERED: *HR* Metoprolol 5 MG/5 ML VIAL IVP ONE (13:28)
[2018-05-26] MEDS ORDERED: Piperacillin/Tazobactam 3.375 GM in 0.9 % Sodium Chloride Mini Bag 100 ML IVPB ONE (13:32)
[2018-05-26] MEDS ORDERED: Isovue-370 500 ML INFUS..BTL IV ONE ×2 (13:47→15:58)
[2018-05-26 13:59] LABS: INR 1.8
[2018-05-26] MEDS ORDERED: *HR* Heparin 5,000 UNIT/ML VIAL IVP ONE (16:15)
--- NOTE | 2018-05-26 16:42 | Emergency Department Note ---
Disposition Clinical Impression: Weakness, Status post cardiac pacemaker procedure Dyspnea Qualifiers: Dyspnea type: unspecified Qualified Code(s): R06.00 - Dyspnea, unspecified Pulmonary embolism Qualifiers: Pulmonary embolism type: other Chronicity: unspecified Acute cor pulmonale presence: without acute cor pulmonale Qualified Code(s): I26.99 - Other pulmonary embolism without acute cor pulmonale Pneumonia Qualifiers: Pneumonia type: due to unspecified organism Laterality: right Lung location: lower lobe of lung Qualified Code(s): J18.1 - Lobar pneumonia, unspecified organism Disposition: Admitted As Inpatient Condition: Fair Referrals: Shayy Rodgers MD [Primary Care Provider] - General Adult HPI - General Chief complaint: ED Shortness of Breath/Dyspnea Stated complaint: weakness Time Seen by Provider: 05/26/18 12:27 Source: patient, family Mode of arrival: EMS Limitations: no limitations - History of Present Illness Pain Scale: 0 - Related Data Home Medications Medication Instructions Recorded Confirmed Acetylcysteine 600 mg PO TIDAC 05/17/18 05/26/18 [F-Ygvywf-u-Cysteine] Amitriptyline HCl 100 mg PO DAILY 05/17/18 05/26/18 Aspirin [Ecotrin] 325 mg PO DAILY 05/17/18 05/26/18 Atorvastatin Calcium [Lipitor] 20 mg PO HS 05/17/18 05/26/18 FLUoxetine HCl [Prozac] 20 mg PO DAILY 05/17/18 05/26/18 Finasteride [Proscar] 5 mg PO DAILY 05/17/18 05/26/18 Fish Oil/Dha/Epa [Fish Oil 1,200 1 cap PO DAILY 05/17/18 05/26/18 mg Fish Oil] Fluticasone Propionate Nasal 1 spr NS DAILY 05/17/18 05/26/18 [Flonase] Fluticasone/Salmeterol [Advair Hfa 1 puff IH DAILY 05/17/18 05/26/18 230-21 Mcg Inhaler] Furosemide [Lasix] 20 mg PO DAILY 05/17/18 05/26/18 Gabapentin [Neurontin] 600 mg PO TID 05/17/18 05/26/18 Levothyroxine [Synthroid] 125 mcg PO 0605/17/18 05/26/18 Lisinopril [Zestril] 10 mg PO DAILY 05/17/18 05/26/18 Loratadine [Claritin] 10 mg PO DAILY 05/17/18 05/26/18 Lutein 20 mg PO DAILY 05/17/18 05/26/18 Metformin HCl [Glucophage] 1,000 mg PO BID 05/17/18 05/26/18 Metoprolol [Lopressor] 25 mg PO BID 05/17/18 05/26/18 Pioglitazone [Actos] 15 mg PO DAILY 05/17/18 05/26/18 SitaGLIPtin [Januvia] 100 mg PO DAILY 05/17/18 05/26/18 Umeclidinium [place] [Incruse 62.5 mcg IH DAILY 05/17/18 05/26/18 Ellipta] Vit A/Vit C/Vit E/Zinc/Copper 1 tab PO DAILY 05/17/18 05/26/18 [Preservision Areds Tablet] Warfarin [Coumadin] 6 mg PO SUMOTUWEFR 05/17/18 05/26/18 Warfarin [Coumadin] 9 mg PO THSA 05/17/18 05/26/18 Previous Rx's Medication Instructions Recorded OxyCODONE Immed Rel [Roxicodone 5 5 mg PO Q8HR PRN 3 Days #9 tablet 05/24/18 MG] Allergies Allergy/AdvReac Type Severity Reaction Status Date / Time No Known Allergies Allergy Verified 05/17/18 20:27 Constitutional: Denies: fever Cardiovascular: Denies: chest pain Respiratory: Reports: cough, dyspnea Gastrointestinal: Denies: abdominal pain, nausea, vomiting Musculoskeletal: Denies: back pain Past Medical History - Past Medical History Medical history: Reports: arthritis, atrial fibrillation, COPD, diabetes, GERD, hyperlipidemia, hypertension, thyroid disease, other Surgical history: Reports: cholecystectomy, knee replacement, orthopedic, other Psychiatric history: Reports: no psych history - Social History Smoking Status: Former smoker Smokeless Tobacco Status: No Alcohol use: Reports: none Drug use: Reports: none Physical Exam - General Limitations: no limitations General appearance: alert, in no apparent distress Course Vital Signs Temperature 98.2 F 05/26/18 12:19 Pulse Rate 129 05/26/18 12:19 Respiratory Rate 20 05/26/18 12:19 Blood Pressure 131/84 05/26/18 12:19 O2 Sat by Pulse Oximetry 94 05/26/18 12:19 Temperature 98.2 F 05/26/18 12:19 Pulse Rate 129 05/26/18 12:19 Respiratory Rate 20 05/26/18 12:19 Blood Pressure 131/84 05/26/18 12:19 O2 Sat by Pulse Oximetry 94 05/26/18 12:19 Oxygen Delivery Oxygen Delivery Nasal Cannula Medical Decision Making - Lab Data Result diagrams: 05/26/18 12:42 05/26/18 12:42 Lab Results 05/26/18 05/26/18 05/26/18 Range/Units 12:42 12:42 12:42 WBC 17.0 H (4.3-11.1) K/mcL RBC 4.37 (4.19-5.50) M/mcL Hgb 13.0 D (12.9-16.9) g/dL Hct 40.1 (37.5-50.1) % MCV 91.8 (83.0-100.0) fL MCH 29.7 (28.0-33.3) pg MCHC 32.4 (31.6-35.5) g/dL RDW 15.7 H (11.5-14.5) % Plt Count 490 H D (140-400) K/mcL MPV 9.6 (9.4-12.4) fL Immature Gran % 0.9 (0-4) % Seg Neutrophils % 81.5 % Lymphocytes % 6.4 % Monocytes % 10.7 % Eosinophils % 0.2 % Basophils % 0.3 % Neutrophils # 13.8 H (1.6-8.9) K/mcL Lymphocytes # 1.1 (0.6-4.6) K/mcL Monocytes # 1.8 H (0.0-1.3) K/mcL Eosinophils # 0.0 (0.0-0.6) K/mcL Basophils # 0.1 (0.0-0.2) K/mcL PT (9.4-12.1) Seconds INR Sodium 135 L (136-145) mEq/L Potassium 4.1 (3.5-5.1) mEq/L Chloride 100 (98-107) mEq/L Carbon Dioxide 26 (23-29) mEq/L BUN 26 H (8-23) mg/dL Creatinine 1.24 (0.70-1.30) mg/dL Est GFR ( Amer) > 60 (> 60) Est GFR (Non-Af Amer) 56 L (> 60) BUN/Creatinine Ratio 21 (6-26) Glucose 250 H (70-105) mg/dL Calculated Osmolality 293 (280-300) Lactic Acid 2.0 (0.5-2.2) mmol/L Calcium 9.5 (8.6-10.3) mg/dL Magnesium 2.1 (1.6-2.6) mg/dL Total Bilirubin 1.0 (0.3-1.0) mg/dL AST 22 (13-39) Units/L ALT 27 (7-52) Units/L Alkaline Phosphatase 58 (34-104) Units/L Troponin I 0.03 (< 0.04) ng/mL B-Natriuretic Peptide (Less than 100) pg/mL Serum Total Protein 7.7 (6.4-8.9) g/dL Albumin 3.5 (3.5-5.7) g/dL Globulin 4.2 H (2.4-3.5) g/dL Albumin/Globulin Ratio 0.8 L (1.1-2.2) 05/26/18 05/26/18 Range/Units 13:43 13:43 WBC (4.3-11.1) K/mcL RBC (4.19-5.50) M/mcL Hgb (12.9-16.9) g/dL Hct (37.5-50.1) % MCV (83.0-100.0) fL MCH (28.0-33.3) pg MCHC (31.6-35.5) g/dL RDW (11.5-14.5) % Plt Count (140-400) K/mcL MPV (9.4-12.4) fL Immature Gran % (0-4) % Seg Neutrophils % % Lymphocytes % % Monocytes % % Eosinophils % % Basophils % % Neutrophils # (1.6-8.9) K/mcL Lymphocytes # (0.6-4.6) K/mcL Monocytes # (0.0-1.3) K/mcL Eosinophils # (0.0-0.6) K/mcL Basophils # (0.0-0.2) K/mcL PT 20.0 H (9.4-12.1) Seconds INR 1.8 Sodium (136-145) mEq/L Potassium (3.5-5.1) mEq/L Chloride (98-107) mEq/L Carbon Dioxide (23-29) mEq/L BUN (8-23) mg/dL Creatinine (0.70-1.30) mg/dL Est GFR ( Amer) (> 60) Est GFR (Non-Af Amer) (> 60) BUN/Creatinine Ratio (6-26) Glucose (70-105) mg/dL Calculated Osmolality (280-300) Lactic Acid (0.5-2.2) mmol/L Calcium (8.6-10.3) mg/dL Magnesium (1.6-2.6) mg/dL Total Bilirubin (0.3-1.0) mg/dL AST (13-39) Units/L ALT (7-52) Units/L Alkaline Phosphatase (34-104) Units/L Troponin I (< 0.04) ng/mL B-Natriuretic Peptide 96 (Less than 100) pg/mL Serum Total Protein (6.4-8.9) g/dL Albumin (3.5-5.7) g/dL Globulin (2.4-3.5) g/dL Albumin/Globulin Ratio (1.1-2.2) Attestation Statement - Attestation Attestation: I examined this patient and my medical decision-making was reviewed with the Resident Physician. I agree with the documented findings, disposition and treatment plan as described except to the extent set forth below. 77 year old male presnet to the ED with complaints of dyspnea and chest pain and states that he was most recently admitted to the hospital for bradycardia and leonela with pacemaker placements. It appears he also has pericardial and pleural effusions that are worsneing on CT. In addition to a confirmed segmental PE in the right side. Santy Echo was performed, waiting for results. Santy will be admitted to medicine.
[2018-05-26] MEDS: Heparin 25,000 UNIT/500 ML D5W 25,000 UNIT/500 ML BAG IVC SCH (16:51)
[2018-05-26 18:19] LABS: Bilirubin,Urine Small (Negative); Blood,Urine Negative (Negative); Clarity,Urine Clear (Clear); Color,Urine Dark Yellow (Yellow); Glucose,Urine (UA) Normal (Normal); Ketones,Urine Trace mg/dL (Negative); Leukocyte Esterase,Urine Negative (Negative); Nitrite,Urine Negative (Negative); Protein,Urine 30 mg/dL (Neg-Trace); Specific Gravity,Urine > 1.030 (1.010-1.025)
[2018-05-26 18:23] LABS: Hyaline Casts,Urine Few per lpf (None-Few)
[2018-05-26 18:39] LABS: RBC,Urine 0-3 per hpf (0-3); Yeast,Urine Few per hpf (None Seen)
[2018-05-26 18:40] LABS: Bacteria,Urine Few per hpf (None-Few); Squamous Epithelial Cell,Urine Few per lpf (None-Few)
--- NOTE | 2018-05-26 19:34 | Internal Med History&Physical ---
Date of Encounter: 05/26/18 Time of Encounter: 19:34 Internal Medicine - H&P: HPI Chief complaint: SOB History of present illness: Mr. Doe is a 77 year old male who was recently hospitalized and discharged last week after pacemaker was placed for bradycardia who is presenting for evaluation of weakness associated with short of breath that worse with exertion. Patient typically is oxygen dependent on 3 L at home. Patient denies any chest pain. Denies any fevers. . Patient states that he did have a mechanical fall yesterday and hit his head without loss of conscious. CT which showed small subsegmental right lower lobe PE with bilateral infiltrates. Patient is chronically anticoagulated with Coumadin is subtherapeutic. Patient was given heparin as he subtherapeutic in the setting of PE. Patient will be admitted for further evaluation and monitoring. Past Med Surg Social Fam HX - Past Medical History Medical history: arthritis, atrial fibrillation, COPD, diabetes, GERD, hyperlipidemia, hypertension, thyroid disease, other Additional medical history: Hypothyroid. Sleep apnea Psychiatric history: no psych history - Past Surgical History Surgical History: cholecystectomy, knee replacement, orthopedic, other Additional surgical history: Gallbladder, bilateral knee replacement, Appendectomy, Right shoulder. - Social History Smoking Status: Former smoker Smokeless Tobacco Status: No Alcohol use: none Drug use: none - Family History Father Adopted: No Family Member Ethnicity: Non- Living Status: Hx Family Cardiac Disorders: No Hx Family Respiratory Disorders: Yes (Asbestosis) Hx Family Cancer: Yes (Lung CA) Hx Family GI Disorders: No Hx Family Endocrine Disorder: No Hx Family Neuromuscular Disorders: No Hx Family Neurologic Disorders: No Hx Family HEENT Disorders: No Hx Family Autoimmune Disorders: No Internal Medicine - H&P: Meds Acetylcysteine [E-Uvtpjf-i-Cysteine] 600 mg PO TIDAC 05/17/18 [History] Amitriptyline HCl 100 mg PO DAILY 05/17/18 [History] Aspirin [Ecotrin] 325 mg PO DAILY 05/17/18 [History] Atorvastatin Calcium [Lipitor] 20 mg PO HS 05/17/18 [History] FLUoxetine HCl [Prozac] 20 mg PO DAILY 05/17/18 [History] Finasteride [Proscar] 5 mg PO DAILY 05/17/18 [History] Fish Oil/Dha/Epa [Fish Oil 1,200 mg Fish Oil] 1 cap PO DAILY 05/17/18 [History] Fluticasone Propionate Nasal [Flonase] 1 spr NS DAILY 05/17/18 [History] Fluticasone/Salmeterol [Advair Hfa 230-21 Mcg Inhaler] 1 puff IH DAILY 05/17/18 [History] Furosemide [Lasix] 20 mg PO DAILY 05/17/18 [History] Gabapentin [Neurontin] 600 mg PO TID 05/17/18 [History] Levothyroxine [Synthroid] [place] [address]/17/18 [History] Lisinopril [Zestril] 10 mg PO DAILY 05/17/18 [History] Loratadine [Claritin] 10 mg PO DAILY 05/17/18 [History] Lutein 20 mg PO DAILY 05/17/18 [History] Metformin HCl [Glucophage] 1,000 mg PO BID 05/17/18 [History] Metoprolol [Lopressor] 25 mg PO BID 05/17/18 [History] Pioglitazone [Actos] 15 mg PO DAILY 05/17/18 [History] SitaGLIPtin [Januvia] 100 mg PO DAILY 05/17/18 [History] Umeclidinium [place] [Incruse Ellipta] 62.5 mcg IH DAILY 05/17/18 [History] Vit A/Vit C/Vit E/Zinc/Copper [Preservision Areds Tablet] 1 tab PO DAILY [History] Warfarin [Coumadin] 6 mg PO SUMOTUWEFR 05/17/18 [History] Warfarin [Coumadin] 9 mg PO THSA 05/17/18 [History] OxyCODONE Immed Rel [Roxicodone 5 MG] 5 mg PO Q8HR PRN 3 Days #9 tablet [Rx] 3 Allergy/AdvReac Type Severity Reaction Status Date / Time No Known Allergies Allergy Verified 05/17/18 20:27 All Systems PM: A 10-system review of systems was performed and is negative for pertinent findings except as documented above in the HPI. - Constitutional Constitutional: fatigue, falls, malaise - Cardiovascular Cardiovascular ROS IM: dyspnea, no chest pain, no diaphoresis, no lightheadedness, no palpitations, no syncope - Respiratory Respiratory: cough, dyspnea - Gastrointestinal Gastrointestinal: no abdominal pain, no diarrhea, no hematemesis, no hematochezia, no melena, no nausea, no vomiting - Neurological Neurological ROS: no confusion, no convulsions, no focal weakness, no numbness, no tingling, no tremor(s) - Constitutional Vitals: Temp Pulse Resp BP Pulse Ox 98.2 F 125 18 148/78 98 05/26/18 12:19 05/26/18 18:46 05/26/18 18:46 05/26/18 18:46 05/26/18 18:46 General appearance: Present: A&O X 3 - Head Head exam: Present: atraumatic, normocephalic - Neck Neck exam general surgery: Present: supple, trachea midline. Absent: lymphadenopathy - Respiratory Respiratory exam: Present: rhonchi. Absent: accessory muscle use, rales, wheezes - Cardiovascular Cardiovascular exam: Present: RRR, +S1, +S2. Absent: diastolic murmur, gallop, rubs, systolic murmur - GI/Abdominal GI/Abdominal exam: Present: normal bowel sounds, soft, no peritoneal signs. Absent: distended, tenderness - Extremities Exam Extremities exam: Present: pedal edema, warm, radial pulses palpable and symmetrical. Absent: calf tenderness, cyanotic Internal Med - H&P Results - Labs CBC & Chem 7: 05/27/18 01:53 05/27/18 01:53 - Assessment and plan (1) Pneumonia Current Visit: Yes Status: Acute Assessment and plan: ASSESSMENT: - SOB due to *Pneumonia Previous ABx Tx- , Structural lung disease- - Blood Cx - Antibiotics - CBCD, CMP in AM - Tylenol 650 mg PO q 4-6 hr PRN pain or fever - Heparin 5000 U SQ BID Qualifiers: Pneumonia type: due to unspecified organism Laterality: right Lung location: lower lobe of lung Qualified Code(s): J18.1 - Lobar pneumonia, unspecified organism (2) Pulmonary embolism Current Visit: Yes Status: Acute Assessment and plan: ASSESSMENT: The patient is on chronic anticoagulation with warfarin but his INR appears sub therapeutics, Was started on heparin drip. 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 Diabetes mellitus complication status : with unspecified complications Qualified Code(s): E11.8 - Type 2 diabetes mellitus with unspecified complications (5) HTN (hypertension) Current Visit: No Status: Chronic Qualifiers: Hypertension type: essential hypertension Qualified Code(s): I10 - Essential (primary) hypertension (6) Hypothyroid Current Visit: No Status: Chronic Qualifiers: Hypothyroidism type: unspecified Qualified Code(s): E03.9 - Hypothyroidism , unspecified (7) COPD (chronic obstructive pulmonary disease) Current Visit: No Status: Chronic Qualifiers: COPD type: chronic bronchitis Chronic bronchitis type: unspecified Qualified Code(s): J42 - Unspecified chronic bronchitis (8) KYLEE (obstructive sleep apnea) Current Visit: No Status: Chronic (9) DVT prophylaxis Current Visit: No Status: Acute - Time Spent With Patient Total time spent is greater than 50% in coordination of care (as documented) at patient's floor/unit and/or counseling patient:
[2018-05-26] MEDS ORDERED: *HR* HYDROcodone/Acet 5/325 mg TABLET PO PRN (20:01)
[2018-05-26] MEDS ORDERED: Naloxone 0.4 MG/ML INJ IVP PRN (20:01)
[2018-05-26] MEDS ORDERED: Acetaminophen 325 MG TABLET PO PRN (20:01)
[2018-05-26] MEDS ORDERED: *HR* OxyCODONE Immed Rel 5 MG TABLET PO PRN (20:06)
[2018-05-26 20:53] LABS: INR 1.8; Prothrombin Time 20.4 Seconds (9.4-12.1)
[2018-05-26] MEDS ORDERED: *HR* Metformin 500 MG TABLET PO SCH (21:00)
[2018-05-26] MEDS ORDERED: Vancomycin (wt based) 1,000 MG VIAL IVPB SCH (21:00)
[2018-05-26 21:18] LABS: Activated Partial Thrombo Time 135.9 Seconds (26.0-36.0); Heparin anti-factor XA UFH 0.95 IU/mL (0.30-0.70)
[2018-05-26] MEDS: Gabapentin 300 MG CAPSULE PO SCH (22:40)
[2018-05-26] MEDS: 0.9 % Sodium Chloride 1,000 ML IVC SCH (23:08)
[2018-05-26] MEDS ORDERED: *HR* Warfarin 3 MG TABLET PO STA (23:14)
[2018-05-27] MEDS: Piperacillin/Tazobactam 3.375 GM in 0.9 % Sodium Chloride Mini Bag 100 ML IVPB SCH ×3 (01:29→16:20)
[2018-05-27 02:07] LABS: Basophils # 0.1 K/mcL (0.0-0.2); Basophils % 0.4 %; Eosinophils # 0.3 K/mcL (0.0-0.6); Eosinophils % 1.8 %; Hematocrit 35.4 % (37.5-50.1); Hemoglobin 11.5 g/dL (12.9-16.9); Immature Granulocytes % 0.8 % (0-4); Lymphocytes # 1.6 K/mcL (0.6-4.6); Lymphocytes % 10.4 %; Mean Corpuscular HGB Conc 32.5 g/dL (31.6-35.5); Mean Corpuscular Hemoglobin 29.6 pg (28.0-33.3); Mean Corpuscular Volume 91.2 fL (83.0-100.0); Mean Platelet Volume 9.7 fL (9.4-12.4); Monocytes # 1.9 K/mcL (0.0-1.3); Neutrophils # 11.7 K/mcL (1.6-8.9); Platelet Count 429 K/mcL (140-400); Red Blood Count 3.88 M/mcL (4.19-5.50); Red Cell Distribution Width 15.9 % (11.5-14.5); Segmented Neutrophils % 74.6 %
[2018-05-27 02:15] LABS: INR 1.7; Prothrombin Time 19.5 Seconds (9.4-12.1)
[2018-05-27 02:27] LABS: Alanine Aminotransferase 24 Units/L (7-52); Albumin/Globulin Ratio 0.8 (1.1-2.2); Alkaline Phosphatase 47 Units/L (34-104); Aspartate Amino Transferase 21 Units/L (13-39); BUN/Creatinine Ratio 23 (6-26); Bilirubin,Total 0.8 mg/dL (0.3-1.0); Blood Urea Nitrogen 23 mg/dL (8-23); Calcium 8.6 mg/dL (8.6-10.3); Carbon Dioxide 25 mEq/L (23-29); Chloride 102 mEq/L (98-107); Chol/HDL Ratio 3.4 (0-4.9); Cholesterol 109 mg/dL (< 200); Globulin 3.6 g/dL (2.4-3.5); Glucose 205 mg/dL (70-105); HDL Cholesterol 32 mg/dL (40-59); LDL Cholesterol,Calculated 49 mg/dL (0-99); Magnesium 2.2 mg/dL (1.6-2.6); Osmolality,Calculated 288 (280-300); Phosphorous 2.9 mg/dL (2.7-4.5); Potassium 3.6 mEq/L (3.5-5.1); Sodium 134 mEq/L (136-145); Total Protein 6.6 g/dL (6.4-8.9); Triglycerides 138 mg/dL (< 150); eGFR For African Americans > 60 (> 60); eGFR For Non-African Americans > 60 (> 60)
[2018-05-27 02:38] LABS: ABG Base Excess 2 mEq/L (-2 to 3); ABG HCO3 26 mEq/L (21-27); ABG Oxygen Saturation 95 % (95-98); ABG PCO2 37 mmHg (35-45); ABG PH 7.46 pH Units (7.32-7.45); ABG PO2 70 mmHg (85-104); ABG TCO2 27 mEq/L (20-26)
[2018-05-27 03:42] LABS: Bilirubin,Urine Small (Negative); Blood,Urine Negative (Negative); Clarity,Urine Clear (Clear); Color,Urine Dark Yellow (Yellow); Glucose,Urine (UA) Normal (Normal); Ketones,Urine Negative (Negative); Leukocyte Esterase,Urine Negative (Negative); Nitrite,Urine Negative (Negative); PH,Urine 5.5 pH Units (5.0-8.0); Protein,Urine Trace mg/dL (Neg-Trace); Specific Gravity,Urine > 1.030 (1.010-1.025)
[2018-05-27 03:44] LABS: Bacteria,Urine None Seen per hpf (None-Few); Hyaline Casts,Urine None Seen per lpf (None-Few); Squamous Epithelial Cell,Urine Many per lpf (None-Few)
[2018-05-27] MEDS: 0.9 % Sodium Chloride 1,000 ML IVC SCH (04:22)
[2018-05-27 05:27] LABS: Influenza A PCR Negative (Negative); Influenza B PCR Negative (Negative); Resp. Syncytial Virus PCR Negative (Negative)
[2018-05-27] MEDS ORDERED: Furosemide 40 MG/4 ML VIAL IVP ONE ×2 (05:45→12:12)
[2018-05-27] MEDS: Budesonide/Formoterol 160/4.5 MDI IH SCH (07:25)
[2018-05-27] MEDS: FLUoxetine 20 MG CAPSULE PO SCH (07:55)
[2018-05-27] MEDS: *HR* SitaGLIPtin 100 MG TABLET PO SCH (07:55)
[2018-05-27] MEDS: Gabapentin 300 MG CAPSULE PO SCH ×2 (07:55→14:02)
[2018-05-27] MEDS: Finasteride 5 MG TABLET PO SCH (07:55)
[2018-05-27] MEDS: *HR* Pioglitazone 15 MG TABLET PO SCH (07:55)
[2018-05-27] MEDS: Aspirin Enteric Coated 325 MG Tablet PO SCH (07:55)
[2018-05-27] MEDS: Furosemide 20 MG TABLET PO SCH (07:55)
[2018-05-27] MEDS: Fluticasone Propionate Nasal 50 MCG/SPRAY BOTTLE NS SCH (07:57)
[2018-05-27] MEDS: Heparin 25,000 UNIT/500 ML D5W 25,000 UNIT/500 ML BAG IVC SCH ×2 (08:08→16:22)
[2018-05-27] MEDS: Insulin LISPRO 300 UNITS/3 ML VIAL SQ SCH ×4 (08:10→23:29)
[2018-05-27] MEDS: (Lutein [Lutein] 20 MG) PO SCH (08:21)
[2018-05-27] MEDS: (Umeclidinium Bromide [Incruse Ellipta] 62.5 MCG) IH SCH (08:22)
[2018-05-27] MEDS ORDERED: Loratadine 10 MG TABLET PO SCH (09:00)
[2018-05-27] MEDS: *HR* Acetylcysteine 20% 600 MG/3 ML ORAL SYRINGE PO SCH ×3 (10:27→17:10)
[2018-05-27] MEDS ORDERED: *HR* Heparin 5,000 UNIT/ML VIAL IVP PRN ×2 (12:14)
[2018-05-27 12:59] LABS: ABG Base Excess 1 mEq/L (-2 to 3); ABG HCO3 25 mEq/L (21-27); ABG Oxygen Saturation 96 % (95-98); ABG PCO2 37 mmHg (35-45); ABG PH 7.43 pH Units (7.32-7.45); ABG PO2 78 mmHg (85-104); ABG TCO2 26 mEq/L (20-26)
--- NOTE | 2018-05-27 13:04 | Internal Med Progress Note ---
Date of Encounter: 05/27/18 Time of Encounter: 12:59 - Assessment and plan (1) Sepsis Current Visit: Yes Status: Acute Assessment and plan: WBC 17K, HR >90 from pneumonia Qualifiers: Sepsis type: sepsis due to unspecified organism Qualified Code(s): A41.9 - Sepsis, unspecified organism (2) Pneumonia Current Visit: Yes Status: Acute Assessment and plan: possible gram negative bacterial and MRSA pneumonia, conitnue IV zosyn and vancomycin Qualifiers: Pneumonia type: due to other aerobic Gram-negative bacteria Laterality: bilateral Lung location: lower lobe of lung Qualified Code(s): J15.6 - Pneumonia due to other Gram-negative bacteria (3) Pulmonary embolism Current Visit: Yes Status: Acute Assessment and plan: acute PE, conitnue heparin drip Qualifiers: Pulmonary embolism type: other Chronicity: unspecified Acute cor pulmonale presence: without acute cor pulmonale Qualified Code(s): I26.99 - Other pulmonary embolism without acute cor pulmonale (4) Weakness generalized Current Visit: Yes Status: Acute Assessment and plan: consult PT and OT (5) COPD (chronic obstructive pulmonary disease) Current Visit: No Status: Chronic Assessment and plan: on 3 L NC at home, stopped smoking 15 years ago Qualifiers: COPD type: chronic bronchitis Chronic bronchitis type: unspecified Qualified Code(s): J42 - Unspecified chronic bronchitis (6) Diabetes mellitus Current Visit: Yes Status: Chronic Assessment and plan: hld home meds metformin, conitnue actos and Januvia Qualifiers: Diabetes mellitus type: type 2 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 Diabetes mellitus complication status : with unspecified complications Qualified Code(s): E11.8 - Type 2 diabetes mellitus with unspecified complications (7) HTN (hypertension) Current Visit: Yes Status: Chronic Assessment and plan: continue lisinopril and metoprolol Qualifiers: Hypertension type: essential hypertension Qualified Code(s): I10 - Essential (primary) hypertension (8) Hypothyroid Current Visit: Yes Status: Chronic Qualifiers: Hypothyroidism type: unspecified Qualified Code(s): E03.9 - Hypothyroidism , unspecified (9) KYLEE (obstructive sleep apnea) Current Visit: Yes Status: Chronic Assessment and plan: on BIPAP at night (10) Atrial fibrillation Current Visit: No Status: Chronic Assessment and plan: on BB, s/p pacemarker, hold coumadin, whild on heparin drip Qualifiers: Atrial fibrillation type: paroxysmal Qualified Code(s): I48.0 - Paroxysmal atrial fibrillation (11) Third degree heart block Current Visit: No Status: Chronic Assessment and plan: s/p pacemarker placement on 05/18, consult cardiology for device check follow up patient also has pericardia effusion, will consult cardiology (12) Acute and chronic respiratory failure with hypoxia Current Visit: Yes Status: Acute (13) Diastolic CHF, acute on chronic Current Visit: Yes Status: Acute Assessment and plan: on lasix, TTE on 05/18 showed preserved EF (14) DVT prophylaxis Current Visit: Yes Status: Resolved Assessment and plan: on heparin drip - Time Spent With Patient Total time spent is greater than 50% in coordination of care (as documented) at patient's floor/unit and/or counseling patient: Greater than 35 minutes - Subjective Interval history: Mr. Doe is a 77 year old male who was recently hospitalized and discharged last week after pacemaker was placed for bradycardia who is presenting for evaluation of weakness associated with short of breath that worse with exertion. Patient typically is oxygen dependent on 3 L at home. Patient denies any chest pain. Denies any fevers. Patient states that he did have a mechanical fall yesterday and hit his head without loss of conscious. CT which showed small subsegmental right lower lobe PE with bilateral infiltrates. Patient is chronically anticoagulated with Coumadin is subtherapeutic. Patient was given heparin as he subtherapeutic in the setting of PE. Patient was admitted for b/l pneumonia and acute PE, acute on chronci hypoxic respiratory failure Patient is on 5 L NC, still very SOB, family are in thr room, a lot of questions and concerned, all questions are answered. 1. b/l pnedmonia HCAP, on zosyn and vancomycin 2. Acute PE on heparin drip 3. acute on chronci hypoxic respiratory failure, IV lasix times 2 4. acute on chronci diastolic CHF, last TTE on 05/18/2018 5. Morbid obesity with BMI 44 6.COPD O2 depnednet on 3 L NC 7. 3rd AVB s/p pacemarker, consult cardiology 8. KYLEE on BIPAP at home 9. atrial fib was on coumadin 10. deconditioning, conuslt pT and OT - Constitutional Vitals: Temp Pulse Resp BP Pulse Ox 97.7 F 80 20 140/96 90 05/27/18 01:20 05/27/18 10:41 05/27/18 10:41 05/27/18 10:41 05/27/18 10:41 General appearance: Present: A&O X 3 Exam: CONSTITUTIONAL: patient appears as an age appropriate male in no acute distress. EYES Clear sclerae, bilateral pupils are equal, reactive to light. EMOI. RESPIRATORY: No accessory muscle use, bilateral clear to auscultation, no wheezing, basilar crackles/rales. CARDIOVASCULAR: irRegular heart rate, normal S1 and S2, no murmurs GASTROINTESTINAL: bowel sounds present, soft, no tenderness. MUSCULOSKELETAL: Joints in normal range of motion, no clubbing, ++ edema, no cyanosis. Bilateral peripheral pulses 2+. NEUROLOGIC: CN II to XII are grossly intact, no focal neurological deficit. Internal Medicine: Result - Labs CBC & Chem 7: 05/27/18 01:53 05/27/18 01:53 Labs: Short CBC 05/27/18 Range/Units 01:53 WBC 15.7 H (4.3-11.1) K/mcL Hgb 11.5 L D (12.9-16.9) g/dL Hct 35.4 L (37.5-50.1) % Plt Count 429 H (140-400) K/mcL Neutrophils # 11.7 H (1.6-8.9) K/mcL BMP 05/27/18 01:53 Sodium 134 L Potassium 3.6 Chloride 102 Carbon Dioxide 25 BUN 23 Creatinine 1.02 Glucose 205 H Calcium 8.6 Cardiac Enzymes 05/26/18 05/27/18 05/27/18 Range/Units 20:28 01:53 08:21 Troponin I 0.03 0.03 0.03 (< 0.04) ng/mL Liver Function 05/27/18 Range/Units 01:53 Total Bilirubin 0.8 (0.3-1.0) mg/dL AST 21 (13-39) Units/L ALT 24 (7-52) Units/L Alkaline Phosphatase 47 (34-104) Units/L Albumin 3.0 L (3.5-5.7) g/dL Urine 05/27/18 Range/Units 03:25 Urine Color Dark Yellow (Yellow) Urine Clarity Clear (Clear) Urine pH 5.5 (5.0-8.0) pH Units Ur Specific [place] > 1.030 H (1.010-1.025) Urine Protein Trace (Neg-Trace) mg/dL Urine Glucose (UA) Normal (Normal) mg/dL - ABG Interpretation ABG results: ABG ABG pH 7.46 pH Units (7.32-7.45) H 05/27/18 02:28 ABG pCO2 37 mmHg (35-45) 05/27/18 02:28 ABG pO2 70 mmHg (85-104) L 05/27/18 02:28 ABG O2 Saturation 95 % (95-98) 05/27/18 02:28 PT/INR, D-dimer PT 19.5 Seconds (9.4-12.1) H 05/27/18 01:53 Consult Discharge Plan - Plan
[2018-05-27 13:37] LABS: Hematocrit 35.3 % (37.5-50.1); Hemoglobin 11.1 g/dL (12.9-16.9); Mean Corpuscular HGB Conc 31.4 g/dL (31.6-35.5); Mean Corpuscular Volume 92.2 fL (83.0-100.0); Mean Platelet Volume 9.5 fL (9.4-12.4); Platelet Count 445 K/mcL (140-400); Red Blood Count 3.83 M/mcL (4.19-5.50); Red Cell Distribution Width 15.8 % (11.5-14.5)
[2018-05-27] MEDS ORDERED: Warfarin perPT PO PRN (18:00)
[2018-05-28 00:17] LABS: Activated Partial Thrombo Time 79.5 Seconds (26.0-36.0)
[2018-05-28] MEDS: Piperacillin/Tazobactam 3.375 GM in 0.9 % Sodium Chloride Mini Bag 100 ML IVPB SCH ×4 (00:59→23:42)
[2018-05-28 04:34] LABS: INR 1.8; Prothrombin Time 20.5 Seconds (9.4-12.1)
[2018-05-28] MEDS: Heparin 25,000 UNIT/500 ML D5W 25,000 UNIT/500 ML BAG IVC SCH ×2 (06:41→20:37)
[2018-05-28] MEDS: Budesonide/Formoterol 160/4.5 MDI IH SCH (07:52)
[2018-05-28] MEDS: Insulin LISPRO 300 UNITS/3 ML VIAL SQ SCH ×4 (07:59→20:54)
--- NOTE | 2018-05-28 09:19 | Pulmonology Consult Note ---
Date of Encounter: 05/28/18 Time of Encounter: 08:00 Assessment and Plan (1) Acute and chronic respiratory failure with hypoxia Current Visit: Yes Status: Acute This is multifactorial with patient having acute pulmonary embolism which is overall not impressive its subsegmental and he will need chronic anticoagulation anyway and he is on heparin that can be converted and he can take case Coumadin again and to monitor INR evidence of right ventricular based on clinical examination, however with his history of obstructive sleep apnea with pulmonary hypertension is always risk for this patient's and also underlying COPD related (2) Dyspnea Current Visit: Yes Status: Acute This is multifactorial as indicated above. Qualifiers: Dyspnea type: dyspnea on exertion Qualified Code(s): R06.09 - Other forms of dyspnea (3) Pulmonary embolism Current Visit: Yes Status: Acute Patient is on appropriate treatment Qualifiers: Pulmonary embolism type: other Chronicity: unspecified Acute cor pulmonale presence: without acute cor pulmonale Qualified Code(s): I26.99 - Other pulmonary embolism without acute cor pulmonale (4) KYLEE (obstructive sleep apnea) Current Visit: Yes Status: Chronic Continue BiPAP and can follow-up as outpatient. (5) COPD (chronic obstructive pulmonary disease) Current Visit: No Status: Chronic Continue current bronchodilators Qualifiers: COPD type: chronic bronchitis Chronic bronchitis type: unspecified Qualified Code(s): J42 - Unspecified chronic bronchitis History of Present Illness Consult date: 05/28/18 Requesting physician: Moni Mondragon Reason for consult: dyspnea, pulmonary embolism Chief complaint: Shortness of breath History of present illness: This is pleasant 77-year-old male who was recently hospitalized and this history is taken from the family at the bedside because patient is lethargic and is on BiPAP. Recently had a pacemaker placement for bradycardia and he has diagnosis of obstructive sleep apnea using positive airway pressure and presented to the hospital with diagnosis of acute pulmonary embolism and he shortness of breath was worsening and also he has been weak and lethargic and shortness of breath on exertion. Into some oxygen and he denies any hemoptysis or significant productive cough or wheezing. CT chest showed pulmonary embolism with bilateral infiltrates. Patient INR was subtherapeutic and he has been on heparin and his been lethargic. Past Med Surg Social Fam HX - Past Medical History Medical history: arthritis, atrial fibrillation, COPD, diabetes, GERD, hyperlipidemia, hypertension, thyroid disease, other Additional medical history: Hypothyroid. Sleep apnea Psychiatric history: no psych history - Past Surgical History Surgical History: cholecystectomy, knee replacement, orthopedic, other Additional surgical history: Gallbladder, bilateral knee replacement, Appendectomy, Right shoulder. - Social History Smoking Status: Former smoker Smokeless Tobacco Status: No Alcohol use: none Drug use: none - Family History Father Adopted: No Family Member Ethnicity: Non- Living Status: Hx Family Cardiac Disorders: No Hx Family Respiratory Disorders: Yes (Asbestosis) Hx Family Cancer: Yes (Lung CA) Hx Family GI Disorders: No Hx Family Endocrine Disorder: No Hx Family Neuromuscular Disorders: No Hx Family Neurologic Disorders: No Hx Family HEENT Disorders: No Hx Family Autoimmune Disorders: No Medications and Allergies Acetylcysteine [R-Joavve-a-Cysteine] 600 mg PO TIDAC 05/17/18 [History] Amitriptyline HCl 100 mg PO DAILY 05/17/18 [History] Aspirin [Ecotrin] 325 mg PO DAILY 05/17/18 [History] Atorvastatin Calcium [Lipitor] 20 mg PO HS 05/17/18 [History] FLUoxetine HCl [Prozac] 20 mg PO DAILY 05/17/18 [History] Finasteride [Proscar] 5 mg PO DAILY 05/17/18 [History] Fish Oil/Dha/Epa [Fish Oil 1,200 mg Fish Oil] 1 cap PO DAILY 05/17/18 [History] Fluticasone Propionate Nasal [Flonase] 1 spr NS DAILY 05/17/18 [History] Fluticasone/Salmeterol [Advair Hfa 230-21 Mcg Inhaler] 1 puff IH DAILY 05/17/18 [History] Furosemide [Lasix] 20 mg PO DAILY 05/17/18 [History] Gabapentin [Neurontin] 600 mg PO TID 05/17/18 [History] Levothyroxine [Synthroid] 125 mcg PO 0630 05/17/18 [History] Lisinopril [Zestril] 10 mg PO DAILY 05/17/18 [History] Loratadine [Claritin] 10 mg PO DAILY 05/17/18 [History] Lutein 20 mg PO DAILY 05/17/18 [History] Metformin HCl [Glucophage] 1,000 mg PO BID 05/17/18 [History] Metoprolol [Lopressor] 25 mg PO BID 05/17/18 [History] Pioglitazone [Actos] 15 mg PO DAILY 05/17/18 [History] SitaGLIPtin [Januvia] 100 mg PO DAILY 05/17/18 [History] Umeclidinium [place] [Incruse Ellipta] 62.5 mcg IH DAILY 05/17/18 [History] Vit A/Vit C/Vit E/Zinc/Copper [Preservision Areds Tablet] 1 tab PO DAILY [History] Warfarin [Coumadin] 6 mg PO SUMOTUWEFR 05/17/18 [History] Warfarin [Coumadin] 9 mg PO THSA 05/17/18 [History] OxyCODONE Immed Rel [Roxicodone 5 MG] 5 mg PO Q8HR PRN 3 Days #9 tablet [Rx] 3 Allergy/AdvReac Type Severity Reaction Status Date / Time No Known Allergies Allergy Verified 05/17/18 20:27 All Systems: The remainder of the systems were reviewed and are negative Physical Examination Vital Signs: Vital Signs, Last 4 Hours Temp Pulse Resp BP Pulse Ox 05/28/18 07:54 17 91 05/28/18 07:12 97.8 F 77 19 132/81 91 General: Patient is in no acute distress. Patient is lethargic and easily arousable. HEENT: Normocephalic atraumatic, pupils are equal round and reactive to light and accommodation, anicteric sclera, nares is patent, mucous membranes moist, no JVD, trachea is midline Cardiovascular: Irregular S1 and S2 audible, no murmur or rubs Respiratory: Diminished to auscultation bilaterally. No acute distress. No wheezing. Patient not using accessory muscles. Abdomen: Soft, nontender, nondistended, positive bowel sounds in all 4 quadrants Extremities: Warm, dry, trace lower extremity edema. Normal capillary refill. Neuro: Alert and oriented and follows commands. Grossly no neuro deficits. Skin: Warm to touch : No obvious abnormalities. Psych: Normal Results - Laboratory Findings CBC and BMP: 05/27/18 13:22 05/27/18 01:53 ABG ABG pH 7.43 pH Units (7.32-7.45) 05/27/18 12:55 ABG pCO2 37 mmHg (35-45) 05/27/18 12:55 ABG pO2 78 mmHg (85-104) L 05/27/18 12:55 ABG O2 Saturation 96 % (95-98) 05/27/18 12:55 PT/INR, D-dimer PT 20.5 Seconds (9.4-12.1) H 05/27/18 23:42 Abnormal lab findings: Abnormal lab results WBC 16.2 K/mcL (4.3-11.1) H 05/27/18 13:22 RBC 3.83 M/mcL (4.19-5.50) L 05/27/18 13:22 Hgb 11.1 g/dL (12.9-16.9) L 05/27/18 13:22 Hct 35.3 % (37.5-50.1) L 05/27/18 13:22 MCHC 31.4 g/dL (31.6-35.5) L 05/27/18 13:22 RDW 15.8 % (11.5-14.5) H 05/27/18 13:22 Plt Count 445 K/mcL (140-400) H 05/27/18 13:22 Neutrophils # 11.7 K/mcL (1.6-8.9) H 05/27/18 01:53 Monocytes # 1.9 K/mcL (0.0-1.3) H 05/27/18 01:53 PT 20.5 Seconds (9.4-12.1) H 05/27/18 23:42 APTT 79.5 Seconds (26.0-36.0) H 05/27/18 23:42 Heparin Anti-Xa, Unfract 0.95 IU/mL (0.30-0.70) H 05/26/18 20:28 ABG pO2 78 mmHg (85-104) L 05/27/18 12:55 Sodium 134 mEq/L (136-145) L 05/27/18 01:53 Glucose 205 mg/dL (70-105) H 05/27/18 01:53 POC Glucose 214 mg/dL (70-99) H 05/28/18 07:10 Albumin 3.0 g/dL (3.5-5.7) L 05/27/18 01:53 Globulin 3.6 g/dL (2.4-3.5) H 05/27/18 01:53 Albumin/Globulin Ratio 0.8 (1.1-2.2) L 05/27/18 01:53 HDL Cholesterol 32 mg/dL (40-59) L 05/27/18 01:53 Ur Specific [place] > 1.030 (1.010-1.025) H 05/27/18 03:25 Urine Bilirubin Small (Negative) H 05/27/18 03:25 Urine Urobilinogen 2.0 mg/dL (Normal) H 05/27/18 03:25 Urine Microscopic RBC 5-15 per hpf (0-3) H 05/27/18 03:25 Urine Microscopic WBC 3-5 per hpf (0-3) H 05/27/18 03:25 Ur Squamous Epith Cells Many per lpf (None-Few) H 05/27/18 03:25 Urine Yeast Few per hpf (None Seen) H 05/26/18 18:06 - Microbiology Findings Microbiology Findings: Microbiology, Last 48 Hours 05/27/18 10:30 Sputum Culture - Preliminary Sputum - Diagnostic Findings CT scan - chest: report reviewed, image reviewed - Clinical Findings Intake & Output: Intake & Output 05/27/18 05/28/18 05/28/18 23:59 07:59 15:59 Intake Total 600 / 600 600 / 600 Output Total 475 / 475 0 / 0 Balance 125 / 125 600 / 600 Weight 149.5 kg Consult Discharge Plan - Plan Referrals: Shayy Rodgers MD [Primary Care Provider] -
[2018-05-28] MEDS: Gabapentin 300 MG CAPSULE PO SCH ×2 (11:29→20:56)
[2018-05-28] MEDS: Aspirin Enteric Coated 325 MG Tablet PO SCH (11:33)
[2018-05-28] MEDS: Finasteride 5 MG TABLET PO SCH (11:33)
[2018-05-28] MEDS: Furosemide 20 MG TABLET PO SCH (11:33)
[2018-05-28] MEDS: *HR* SitaGLIPtin 100 MG TABLET PO SCH (11:33)
[2018-05-28] MEDS: *HR* Pioglitazone 15 MG TABLET PO SCH (11:33)
[2018-05-28] MEDS: *HR* Acetylcysteine 20% 600 MG/3 ML ORAL SYRINGE PO SCH ×3 (11:33→17:55)
[2018-05-28] MEDS: FLUoxetine 20 MG CAPSULE PO SCH (11:33)
[2018-05-28] MEDS: (Lutein [Lutein] 20 MG) PO SCH (11:33)
[2018-05-28] MEDS: (Umeclidinium Bromide [Incruse Ellipta] 62.5 MCG) IH SCH (11:34)
[2018-05-28] MEDS: Fluticasone Propionate Nasal 50 MCG/SPRAY BOTTLE NS SCH (11:41)
--- NOTE | 2018-05-28 15:42 | Electrocardiograph Report ---
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
--- NOTE | 2018-05-28 15:42 | Electrocardiograph Report ---
[address] [place], [place] [address] Test Date: 2018-05-26 Pat Name: Natanael Doe Department: 104 Room: 2NE19 Gender: M Referral Nurse: [facility] : 1940 Requested By: Cj Gutierrez Order Number: [id number] Reading MD: Perfecto Isbell Measurements Intervals [place] Rate: 120 P: MN: 0 QRS: 51 QRSD: 101 T: -63 QT: 319 QTc: 390 Interpretive Statements ATRIAL FIBRILLATION WITH RAPID VENTRICULAR RESPONSE CONSIDER ANTEROLATERAL ISCHEMIA Electronically Signed On 05-28-2018 15:40:37 EDT by Perfecto Isbell
--- NOTE | 2018-05-28 15:53 | Internal Med Progress Note ---
Date of Encounter: 05/28/18 Time of Encounter: 15:49 - Assessment and plan (1) Sepsis Current Visit: Yes Status: Acute Assessment and plan: WBC 17K, HR >90 from pneumonia, improving Qualifiers: Sepsis type: sepsis due to unspecified organism Qualified Code(s): A41.9 - Sepsis, unspecified organism (2) Pneumonia Current Visit: Yes Status: Acute Assessment and plan: possible gram negative bacterial and MRSA pneumonia, conitnue IV zosyn and vancomycin Qualifiers: Pneumonia type: due to other aerobic Gram-negative bacteria Laterality: bilateral Lung location: lower lobe of lung Qualified Code(s): J15.6 - Pneumonia due to other Gram-negative bacteria (3) Pulmonary embolism Current Visit: Yes Status: Acute Qualifiers: Pulmonary embolism type: other Chronicity: unspecified Acute cor pulmonale presence: without acute cor pulmonale Qualified Code(s): I26.99 - Other pulmonary embolism without acute cor pulmonale (4) Weakness generalized Current Visit: Yes Status: Acute Assessment and plan: PT and OT, may need SNF (5) COPD (chronic obstructive pulmonary disease) Current Visit: No Status: Chronic Assessment and plan: on 3 L NC at home, stopped smoking 15 years ago Qualifiers: COPD type: chronic bronchitis Chronic bronchitis type: unspecified Qualified Code(s): J42 - Unspecified chronic bronchitis (6) Diabetes mellitus Current Visit: Yes Status: Chronic Qualifiers: Diabetes mellitus type: type 2 Diabetes mellitus jail insulin use: unspecified jail insulin use status Diabetes mellitus complication status : with unspecified complications Qualified Code(s): E11.8 - Type 2 diabetes mellitus with unspecified complications (7) HTN (hypertension) Current Visit: Yes Status: Chronic Qualifiers: Hypertension type: essential hypertension Qualified Code(s): I10 - Essential (primary) hypertension (8) Hypothyroid Current Visit: Yes Status: Chronic Qualifiers: Hypothyroidism type: unspecified Qualified Code(s): E03.9 - Hypothyroidism , unspecified (9) KYLEE (obstructive sleep apnea) Current Visit: Yes Status: Chronic Assessment and plan: BIPAP at home (10) Atrial fibrillation Current Visit: No Status: Chronic Assessment and plan: on BB, s/p pacemarker, hold coumadin, while on heparin drip Qualifiers: Atrial fibrillation type: paroxysmal Qualified Code(s): I48.0 - Paroxysmal atrial fibrillation (11) Third degree heart block Current Visit: No Status: Chronic Assessment and plan: s/p pacemarker placement on 05/18, consult cardiology for device check follow up patient also has pericardia effusion, pending cardiology (12) Acute and chronic respiratory failure with hypoxia Current Visit: Yes Status: Acute Assessment and plan: weaning o2 (13) Diastolic CHF, acute on chronic Current Visit: Yes Status: Acute Assessment and plan: on lasix, TTE on 05/18 showed preserved EF (14) DVT prophylaxis Current Visit: Yes Status: Resolved Assessment and plan: on heparin drip (15) Morbid obesity Current Visit: Yes Status: Acute - Time Spent With Patient Total time spent is greater than 50% in coordination of care (as documented) at patient's floor/unit and/or counseling patient: - Subjective Interval history: Mr. Doe is a 77 year old male who was recently hospitalized and discharged last week after pacemaker was placed for bradycardia who is presenting for evaluation of weakness associated with short of breath that worse with exertion. Patient typically is oxygen dependent on 3 L at home. Patient denies any chest pain. Denies any fevers. Patient states that he did have a mechanical fall yesterday and hit his head without loss of conscious. CT which showed small subsegmental right lower lobe PE with bilateral infiltrates. Patient is chronically anticoagulated with Coumadin is subtherapeutic. Patient was given heparin as he subtherapeutic in the setting of PE. Patient was admitted for b/l pneumonia and acute PE, acute on chronci hypoxic respiratory failure Patient is on 5 L NC, still very SOB, family are in thr room, a lot of questions and concerned, all questions are answered. 1. b/l pnedmonia HCAP, continue zosyn and vancomycin 2. Acute PE on heparin drip 3. acute on chronci hypoxic respiratory failure, weaning O2, pulmonary is on board 4. acute on chronci diastolic CHF, last TTE on 05/18/2018, cardiology is on board 5. Morbid obesity with BMI 44 6.COPD O2 depnednet on 3 L NC 7. 3rd AVB s/p pacemarker, consult cardiology 8. KYLEE on BIPAP at home 9. atrial fib was on coumadin 10. deconditioning, conuslt pT and OT Patient is doing much better, he is alert and oriented 3. He is sitting in the chair w/o shortness of breasts. Oxygen down to 3 L nasal cannula. Family site in the room questions are answered. I am still waiting for Chem-7. If creatinine is normal we will give IV Lasix 40 mg - Constitutional Vitals: Temp Pulse Resp BP Pulse Ox 97.8 F 75 20 124/92 91 05/28/18 07:12 05/28/18 11:37 05/28/18 11:37 05/28/18 11:37 05/28/18 11:37 General appearance: Present: A&O X 3 Exam: CONSTITUTIONAL: patient appears as an age appropriate male in no acute distress. EYES Clear sclerae, bilateral pupils are equal, reactive to light. EMOI. RESPIRATORY: No accessory muscle use, bilateral clear to auscultation, no wheezing, no crackles/rales. CARDIOVASCULAR: Regular heart rate, normal S1 and S2, no murmurs GASTROINTESTINAL: bowel sounds present, soft, no tenderness. MUSCULOSKELETAL: Joints in normal range of motion, no clubbing, no edema, no cyanosis. Bilateral peripheral pulses 2+. NEUROLOGIC: CN II to XII are grossly intact, no focal neurological deficit. Internal Medicine: Result - Labs CBC & Chem 7: 05/27/18 13:22 05/27/18 01:53 - ABG Interpretation ABG results: ABG ABG pH 7.43 pH Units (7.32-7.45) 05/27/18 12:55 ABG pCO2 37 mmHg (35-45) 05/27/18 12:55 ABG pO2 78 mmHg (85-104) L 05/27/18 12:55 ABG O2 Saturation 96 % (95-98) 05/27/18 12:55 PT/INR, D-dimer PT 20.5 Seconds (9.4-12.1) H 05/27/18 23:42 Consult Discharge Plan - Plan Referrals: Shayy Rodgers MD [Primary Care Provider] -
[2018-05-28 16:41] LABS: Prothrombin Time 22.3 Seconds (9.4-12.1)
[2018-05-28 16:43] LABS: BUN/Creatinine Ratio 18 (6-26); Blood Urea Nitrogen 21 mg/dL (8-23); Calcium 8.1 mg/dL (8.6-10.3); Carbon Dioxide 26 mEq/L (23-29); Chloride 102 mEq/L (98-107); Glucose 209 mg/dL (70-105); Osmolality,Calculated 291 (280-300); Potassium 3.5 mEq/L (3.5-5.1); Sodium 136 mEq/L (136-145); Vancomycin,Trough 23 mcg/mL (5-10); eGFR For African Americans > 60 (> 60); eGFR For Non-African Americans > 60 (> 60)
[2018-05-28] MEDS ORDERED: *HR* Warfarin 3 MG TABLET PO ONE (18:00)
--- NOTE | 2018-05-29 01:14 | Cardiology Consult Note ---
Date of Encounter: 05/29/18 Time of Encounter: 01:11 Assessment and Plan (1) Pericardial effusion without cardiac tamponade Current Visit: Yes Status: Acute Improving resp distress with PE's and pneumonia as obvious culprits. Will follow up with limited ECHO in 24 hours (2) Acute respiratory failure with hypoxia Current Visit: No Status: Acute Improving on Heparin and Abx, off Bipap but on oxygen. (3) Status post cardiac pacemaker procedure Current Visit: Yes Status: Acute Pacer interrogation, repeat ECHO this admission for eval of size and progression of effusion Discussion w patient/family: The assessment and plan as outlined above was discussed with the patient and/or family members who expressed understanding and agreement. All questions were answered. Thank you for involving us in the care of your patient. Please call with any questions. History of Present Illness Consult date: 05/29/18 Consult reason: Abnormal echo and recent PPM Chief complaint: weakness History of present illness: Mr. Doe is a 77 year old male multiple comorbidities and CRF's s/p PPM for CHB 1 week ago here after resp distress and fall. Patient found to have pneumonia, bilateral PE's and mild to moderate pericardial effusion without features of tamponade. EF is preserved as noted on echo from week ago. Denies any chest pain, orthopnea at this time. Negative Rhonda with afib RVR on telemetry. Past Med Surg Social Fam HX - Past Medical History Medical history: arthritis, atrial fibrillation, COPD, diabetes, GERD, hyperlipidemia, hypertension, thyroid disease, other Additional medical history: Hypothyroid. Sleep apnea Psychiatric history: no psych history - Past Surgical History Surgical History: cholecystectomy, knee replacement, orthopedic, other Additional surgical history: Gallbladder, bilateral knee replacement, Appendectomy, Right shoulder. - Social History Smoking Status: Former smoker Smokeless Tobacco Status: No Alcohol use: none Drug use: none - Family History Father Adopted: No Family Member Ethnicity: Non- Living Status: Hx Family Cardiac Disorders: No Hx Family Respiratory Disorders: Yes (Asbestosis) Hx Family Cancer: Yes (Lung CA) Hx Family GI Disorders: No Hx Family Endocrine Disorder: No Hx Family Neuromuscular Disorders: No Hx Family Neurologic Disorders: No Hx Family HEENT Disorders: No Hx Family Autoimmune Disorders: No Medications and Allergies Acetylcysteine [I-Zlupim-d-Cysteine] 600 mg PO TIDAC 05/17/18 [History] Amitriptyline HCl 100 mg PO DAILY 05/17/18 [History] Aspirin [Ecotrin] 325 mg PO DAILY 05/17/18 [History] Atorvastatin Calcium [Lipitor] 20 mg PO HS 05/17/18 [History] FLUoxetine HCl [Prozac] 20 mg PO DAILY 05/17/18 [History] Finasteride [Proscar] 5 mg PO DAILY 05/17/18 [History] Fish Oil/Dha/Epa [Fish Oil 1,200 mg Fish Oil] 1 cap PO DAILY 05/17/18 [History] Fluticasone Propionate Nasal [Flonase] 1 spr NS DAILY 05/17/18 [History] Fluticasone/Salmeterol [Advair Hfa 230-21 Mcg Inhaler] 1 puff IH DAILY 05/17/18 [History] Furosemide [Lasix] 20 mg PO DAILY 05/17/18 [History] Gabapentin [Neurontin] 600 mg PO TID 05/17/18 [History] Levothyroxine [Synthroid] 125 mcg PO 0630 05/17/18 [History] Lisinopril [Zestril] 10 mg PO DAILY 05/17/18 [History] Loratadine [Claritin] 10 mg PO DAILY 05/17/18 [History] Lutein 20 mg PO DAILY 05/17/18 [History] Metformin HCl [Glucophage] 1,000 mg PO BID 05/17/18 [History] Metoprolol [Lopressor] 25 mg PO BID 05/17/18 [History] Pioglitazone [Actos] 15 mg PO DAILY 05/17/18 [History] SitaGLIPtin [Januvia] 100 mg PO DAILY 05/17/18 [History] Umeclidinium [place] [Incruse Ellipta] 62.5 mcg IH DAILY 05/17/18 [History] Vit A/Vit C/Vit E/Zinc/Copper [Preservision Areds Tablet] 1 tab PO DAILY [History] Warfarin [Coumadin] 6 mg PO SUMOTUWEFR 05/17/18 [History] Warfarin [Coumadin] 9 mg PO THSA 05/17/18 [History] OxyCODONE Immed Rel [Roxicodone 5 MG] 5 mg PO Q8HR PRN 3 Days #9 tablet [Rx] 3 Allergy/AdvReac Type Severity Reaction Status Date / Time No Known Allergies Allergy Verified 05/17/18 20:27 All Systems Review: The remainder of the systems were reviewed and are negative Physical Examination General: Conversant, No Apparent Distress HEENT: Atraumatic, Normocephaly, Mucus Membranes Moist Neck: No JVD, Normal carotid pulses Cardiac: Reg Rate and Rhythm, Normal S1 and S2, No Murmur Lungs: Normal Breath Sounds, No Wheeze, Rales, Rhonchi Neuro: Alert and responsive, No focal deficits noted Abdomen: Soft, Non-Tender Skin: No rashes noted on visualized skin Musculoskeletal: No Chest Wall Tenderness Extremities: No Clubbing, No Cyanosis, No Edema, Normal Pulses Results 05/27/18 13:22 05/28/18 15:00 Lab Results 05/28/18 05/28/18 05/28/18 15:00 15:00 23:48 INR 2.0 APTT 77.5 H Sodium 136 Potassium 3.5 Chloride 102 Carbon Dioxide 26 BUN 21 Creatinine 1.17 Glucose 209 H Calcium 8.1 L Consult Discharge Plan - Plan Referrals: Shayy Rodgers MD [Primary Care Provider] -
[2018-05-29 04:44] LABS: Basophils % 0.3 %; Eosinophils # 0.4 K/mcL (0.0-0.6); Eosinophils % 2.7 %; Hematocrit 32.7 % (37.5-50.1); Hemoglobin 10.2 g/dL (12.9-16.9); Immature Granulocytes % 0.7 % (0-4); Lymphocytes # 1.8 K/mcL (0.6-4.6); Lymphocytes % 14.1 %; Mean Corpuscular HGB Conc 31.2 g/dL (31.6-35.5); Mean Corpuscular Hemoglobin 29.2 pg (28.0-33.3); Mean Corpuscular Volume 93.7 fL (83.0-100.0); Mean Platelet Volume 9.3 fL (9.4-12.4); Monocytes # 1.2 K/mcL (0.0-1.3); Monocytes % 9.3 %; Neutrophils # 9.3 K/mcL (1.6-8.9); Platelet Count 370 K/mcL (140-400); Red Blood Count 3.49 M/mcL (4.19-5.50); Segmented Neutrophils % 72.9 %
[2018-05-29 04:50] LABS: INR 1.9; Prothrombin Time 21.7 Seconds (9.4-12.1)
[2018-05-29 05:06] LABS: BUN/Creatinine Ratio 16 (6-26); Blood Urea Nitrogen 18 mg/dL (8-23); Calcium 8.5 mg/dL (8.6-10.3); Carbon Dioxide 28 mEq/L (23-29); Chloride 100 mEq/L (98-107); Glucose 177 mg/dL (70-105); Magnesium 2.3 mg/dL (1.6-2.6); Osmolality,Calculated 286 (280-300); Potassium 3.8 mEq/L (3.5-5.1); Sodium 135 mEq/L (136-145); eGFR For African Americans > 60 (> 60); eGFR For Non-African Americans > 60 (> 60)
[2018-05-29] MEDS: Heparin 25,000 UNIT/500 ML D5W 25,000 UNIT/500 ML BAG IVC SCH ×2 (05:18→22:59)
[2018-05-29] MEDS: Budesonide/Formoterol 160/4.5 MDI IH SCH (07:54)
[2018-05-29] MEDS: Furosemide 20 MG TABLET PO SCH (09:25)
[2018-05-29] MEDS: Gabapentin 300 MG CAPSULE PO SCH ×2 (09:26→20:37)
[2018-05-29] MEDS: Aspirin Enteric Coated 325 MG Tablet PO SCH (09:26)
[2018-05-29] MEDS: *HR* Pioglitazone 15 MG TABLET PO SCH (09:26)
[2018-05-29] MEDS: FLUoxetine 20 MG CAPSULE PO SCH (09:26)
[2018-05-29] MEDS: *HR* SitaGLIPtin 100 MG TABLET PO SCH (09:26)
[2018-05-29] MEDS: Finasteride 5 MG TABLET PO SCH (09:26)
[2018-05-29] MEDS: Fluticasone Propionate Nasal 50 MCG/SPRAY BOTTLE NS SCH (09:27)
[2018-05-29] MEDS: *HR* Acetylcysteine 20% 600 MG/3 ML ORAL SYRINGE PO SCH ×3 (09:27→17:21)
[2018-05-29] MEDS: Insulin LISPRO 300 UNITS/3 ML VIAL SQ SCH ×4 (09:27→20:39)
[2018-05-29] MEDS: Piperacillin/Tazobactam 3.375 GM in 0.9 % Sodium Chloride Mini Bag 100 ML IVPB SCH (09:27)
[2018-05-29] MEDS: (Umeclidinium Bromide [Incruse Ellipta] 62.5 MCG) IH SCH (09:32)
[2018-05-29] MEDS: (Lutein [Lutein] 20 MG) PO SCH (09:32)
--- NOTE | 2018-05-29 10:08 | Internal Med Progress Note ---
<Lamin Flowers - Last Filed: 05/29/18 15:02> Date of Encounter: 05/29/18 Time of Encounter: 10:08 - Assessment and plan (1) Pulmonary embolism Current Visit: Yes Status: Acute Assessment and plan: Begin to bridge from Heparin to Warfarin Will DC heparin in AM if INR is therapeutic Qualifiers: Pulmonary embolism type: other Chronicity: unspecified Acute cor pulmonale presence: without acute cor pulmonale Qualified Code(s): I26.99 - Other pulmonary embolism without acute cor pulmonale (2) Weakness generalized Current Visit: Yes Status: Acute Assessment and plan: PT and OT evaluation appreciated. 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 Diabetes mellitus complication status : with unspecified complications Qualified Code(s): E11.8 - Type 2 diabetes mellitus with unspecified complications (5) HTN (hypertension) Current Visit: Yes Status: Chronic Assessment and plan: Stable Continue home meds Qualifiers: Hypertension type: essential hypertension Qualified Code(s): I10 - Essential (primary) hypertension (6) Hypothyroid Current Visit: Yes Status: Chronic Assessment and plan: Continue Synthroid Qualifiers: Hypothyroidism type: unspecified Qualified Code(s): E03.9 - Hypothyroidism , unspecified (7) KYLEE (obstructive sleep apnea) Current Visit: Yes Status: Chronic (8) DVT prophylaxis Current Visit: Yes Status: Resolved Assessment and plan: On heparin and bridging to Warfarin (9) Pneumonia Current Visit: Yes Status: Acute Assessment and plan: Sputum culture revealed normal respiratory julian DC Zosyn and Vanc Begin Augmentin po for 7 days Qualifiers: Pneumonia type: due to other aerobic Gram-negative bacteria Laterality: bilateral Lung location: lower lobe of lung Qualified Code(s): J15.6 - Pneumonia due to other Gram-negative bacteria - Time Spent With Patient Total time spent is greater than 50% in coordination of care (as documented) at patient's floor/unit and/or counseling patient: - Subjective Interval history: Mr. Doe is a 77 year old male who was recently hospitalized and discharged last week after pacemaker was placed for bradycardia who is currently admitted for bilateral pneumonia, acue PE, and acute on chronic hypoxic respiratory failure. Patient typically is oxygen dependent on 3 L at home. During this encounter the patient was sitting comfortably in the chair. States he feels nauseous this AM. Denies any chest pain, increased SOB, increased cough , increased sputum production, vomiting, headache, numbness, or tingling. Pt states he has not had a bowel in the past couple days and that dulcolax worked well in the past for his constipation. - Constitutional Vitals: Temp Pulse Resp BP Pulse Ox 98.0 F 84 16 138/73 90 05/29/18 07:33 05/29/18 07:33 05/29/18 07:54 05/29/18 07:33 05/29/18 07:54 General appearance: Present: A&O X 3, obese Exam: Head: normocephalic and atraumatic Eyes: PERRL, EOMI, conjunctiva pink, sclera anicteric Neck: supple, trachea midline Lungs: Grossly diminished breath sounds. No wheezes or rhonchi noted Heart: RRR, +S2. No murmurs, clicks, or rubs noted GI: abdomen soft, non-tender, distended. Normoactive bowel sounds Extremities: warm, radial pulses palpable and symmetrical. Chronic venous stasis changes noted in LEs Neuro: A&Ox3 No focal deficits. No abnormal speech Skin: warm, dry, intact Internal Medicine: Result - Labs CBC & Chem 7: 05/29/18 04:00 05/29/18 04:00 Labs: Short CBC 05/29/18 Range/Units 04:00 WBC 12.8 H (4.3-11.1) K/mcL Hgb 10.2 L (12.9-16.9) g/dL Hct 32.7 L (37.5-50.1) % Plt Count 370 (140-400) K/mcL Neutrophils # 9.3 H (1.6-8.9) K/mcL BMP 05/28/18 05/29/18 15:00 04:00 Sodium 136 135 L Potassium 3.5 3.8 Chloride 102 100 Carbon Dioxide 26 28 BUN 21 18 Creatinine 1.17 1.10 Glucose 209 H 177 H Calcium 8.1 L 8.5 L - ABG Interpretation ABG results: ABG ABG pH 7.43 pH Units (7.32-7.45) 05/27/18 12:55 ABG pCO2 37 mmHg (35-45) 05/27/18 12:55 ABG pO2 78 mmHg (85-104) L 05/27/18 12:55 ABG O2 Saturation 96 % (95-98) 05/27/18 12:55 PT/INR, D-dimer PT 21.7 Seconds (9.4-12.1) H 05/29/18 04:00 Consult Discharge Plan - Plan Referrals: Shayy Rodgers MD [Primary Care Provider] - <Kolby Villafana - Last Filed: 05/29/18 16:04> Date of Encounter: 05/29/18 - Assessment and plan (1) Weakness generalized Current Visit: Yes Status: Acute (2) COPD (chronic obstructive pulmonary disease) Current Visit: No Status: Chronic Qualifiers: COPD type: chronic bronchitis Chronic bronchitis type: unspecified Qualified Code(s): J42 - Unspecified chronic bronchitis (3) Diabetes mellitus Current Visit: Yes Status: Chronic Qualifiers: Diabetes mellitus type: type 2 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: unspecified intermediate insulin use status Diabetes mellitus complication status : with unspecified complications Qualified Code(s): E11.8 - Type 2 diabetes mellitus with unspecified complications (4) HTN (hypertension) Current Visit: Yes Status: Chronic Qualifiers: Hypertension type: essential hypertension Qualified Code(s): I10 - Essential (primary) hypertension (5) Hypothyroid Current Visit: Yes Status: Chronic Qualifiers: Hypothyroidism type: unspecified Qualified Code(s): E03.9 - Hypothyroidism , unspecified (6) KYLEE (obstructive sleep apnea) Current Visit: Yes Status: Chronic (7) DVT prophylaxis Current Visit: Yes Status: Resolved (8) Pulmonary embolism Current Visit: Yes Status: Acute Qualifiers: Pulmonary embolism type: other Chronicity: unspecified Acute cor pulmonale presence: without acute cor pulmonale Qualified Code(s): I26.99 - Other pulmonary embolism without acute cor pulmonale (9) Pneumonia Current Visit: Yes Status: Acute Qualifiers: Pneumonia type: due to other aerobic Gram-negative bacteria Laterality: bilateral Lung location: lower lobe of lung Qualified Code(s): J15.6 - Pneumonia due to other Gram-negative bacteria - Time Spent With Patient Total time spent is greater than 50% in coordination of care (as documented) at patient's floor/unit and/or counseling patient: - Constitutional Vitals: Temp Pulse Resp BP Pulse Ox 98.1 F 77 18 137/69 90 05/29/18 11:54 05/29/18 11:54 05/29/18 11:54 05/29/18 11:54 05/29/18 11:54 Internal Medicine: Result - Labs CBC & Chem 7: 05/29/18 04:00 05/29/18 04:00 Labs: Short CBC 05/29/18 Range/Units 04:00 WBC 12.8 H (4.3-11.1) K/mcL Hgb 10.2 L (12.9-16.9) g/dL Hct 32.7 L (37.5-50.1) % Plt Count 370 (140-400) K/mcL Neutrophils # 9.3 H (1.6-8.9) K/mcL BMP 05/28/18 05/29/18 15:00 04:00 Sodium 136 135 L Potassium 3.5 3.8 Chloride 102 100 Carbon Dioxide 26 28 BUN 21 18 Creatinine 1.17 1.10 Glucose 209 H 177 H Calcium 8.1 L 8.5 L - ABG Interpretation ABG results: ABG ABG pH 7.43 pH Units (7.32-7.45) 05/27/18 12:55 ABG pCO2 37 mmHg (35-45) 05/27/18 12:55 ABG pO2 78 mmHg (85-104) L 05/27/18 12:55 ABG O2 Saturation 96 % (95-98) 05/27/18 12:55 PT/INR, D-dimer PT 21.7 Seconds (9.4-12.1) H 05/29/18 04:00 - Attending Attestation I examined this patient and my medical decision-making was reviewed with the Resident Physician Dr. Flowers. I agree with the documented findings, disposition and treatment plan as described except to the extent set forth below. Mr. 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 Patient typically is oxygen dependent on 3 L at home. Now he is alert , awake and O x 3. Denied any CP / SOB. Feels better today. Gen: A, A, O x 3 Chest: Diminished BS b/l, no crackles, rales Heart: S1S2+ a/p 1. Acute on chronic hypoxic resp failure 2. Acute Pneumonia - mostly bacterial 3. Acute COPD exacerbation Switched to PO Abx Duoneb and O2 4. Acute PE on Heparin gtt Cont Coumadin 4. Pericardial effusion 5. Chronic diastolic CHF will give 2 doses of IV Lasix
[2018-05-29] MEDS: Furosemide 20 MG/2 ML VIAL IVP SCH (17:21)
[2018-05-29] MEDS ORDERED: *HR* Warfarin 3 MG TABLET PO ONE (18:00)
[2018-05-30 06:47] LABS: Basophils % 0.3 %; Eosinophils # 0.3 K/mcL (0.0-0.6); Eosinophils % 2.7 %; Hematocrit 29.6 % (37.5-50.1); Hemoglobin 9.1 g/dL (12.9-16.9); Immature Granulocytes % 0.9 % (0-4); Immature Platelets 3.4 % (1.1-6.1); Lymphocytes # 1.4 K/mcL (0.6-4.6); Lymphocytes % 12.3 %; Mean Corpuscular HGB Conc 30.7 g/dL (31.6-35.5); Mean Corpuscular Hemoglobin 28.5 pg (28.0-33.3); Mean Corpuscular Volume 92.8 fL (83.0-100.0); Mean Platelet Volume 9.5 fL (9.4-12.4); Monocytes # 0.9 K/mcL (0.0-1.3); Neutrophils # 8.9 K/mcL (1.6-8.9); Platelet Count 438 K/mcL (140-400); Red Blood Count 3.19 M/mcL (4.19-5.50); Segmented Neutrophils % 75.8 %
[2018-05-30 06:52] LABS: Heparin anti-factor XA UFH 0.54 IU/mL (0.30-0.70)
[2018-05-30 07:04] LABS: BUN/Creatinine Ratio 16 (6-26); Blood Urea Nitrogen 14 mg/dL (8-23); Calcium 8.3 mg/dL (8.6-10.3); Carbon Dioxide 26 mEq/L (23-29); Chloride 101 mEq/L (98-107); Glucose 174 mg/dL (70-105); Osmolality,Calculated 289 (280-300); Potassium 3.5 mEq/L (3.5-5.1); Sodium 137 mEq/L (136-145); eGFR For African Americans > 60 (> 60); eGFR For Non-African Americans > 60 (> 60)
[2018-05-30 07:15] LABS: INR 2.2; Prothrombin Time 24.7 Seconds (9.4-12.1)
[2018-05-30] MEDS: Finasteride 5 MG TABLET PO SCH (08:59)
[2018-05-30] MEDS: *HR* Pioglitazone 15 MG TABLET PO SCH (08:59)
[2018-05-30] MEDS: *HR* SitaGLIPtin 100 MG TABLET PO SCH (08:59)
[2018-05-30] MEDS: Gabapentin 300 MG CAPSULE PO SCH (08:59)
[2018-05-30] MEDS: FLUoxetine 20 MG CAPSULE PO SCH (08:59)
[2018-05-30] MEDS: Aspirin Enteric Coated 325 MG Tablet PO SCH (08:59)
[2018-05-30] MEDS: Furosemide 20 MG/2 ML VIAL IVP SCH (09:00)
[2018-05-30] MEDS: *HR* Acetylcysteine 20% 600 MG/3 ML ORAL SYRINGE PO SCH ×2 (09:00→12:14)
[2018-05-30] MEDS: Insulin LISPRO 300 UNITS/3 ML VIAL SQ SCH ×2 (09:09→12:08)
[2018-05-30] MEDS: Fluticasone Propionate Nasal 50 MCG/SPRAY BOTTLE NS SCH (09:10)
[2018-05-30] MEDS: (Lutein [Lutein] 20 MG) PO SCH (09:12)
[2018-05-30] MEDS: (Umeclidinium Bromide [Incruse Ellipta] 62.5 MCG) IH SCH (09:12)
--- NOTE | 2018-05-30 10:02 | Discharge Summary ---
<Lamin Flowers - Last Filed: 05/30/18 17:36> - NOTES TO OUTPATIENT PROVIDER Notes to Outpatient Provider: Mr. Doe was admitted on 05/28 for weakness. He was found to have bilateral pneumonia and a PE. INR was subtherapeutic with Warfarin at this time. He is discharged with Augmentin and increased his Lasix to 20mg BID. Orders not resulted at time of discharge: Pending orders 05/30/18 12:30 Heparin anti-factor XA UFH [COAG] Timed 05/31/18 04:00 PT/INR [Prothrombin Time INR] [COAG] AM 0400 06/01/18 04:00 PT/INR [Prothrombin Time INR] [COAG] AM 0400 Date of Encounter: 05/30/18 Time of Encounter: 09:45 - Discharge Diagnosis (1) Pneumonia Priority: Primary Status: Acute Assessment and Plan: Pt was admitted on Vanc and Zosyn 05/27: Sputum culture revealed normal respiratory julian 05/29: Stop Vanc and Zosyn. Begin Augmentin po for 7 days 05/30: Discharge with Augmentin prescription for remaining 6 days Qualifiers: Pneumonia type: due to other aerobic Gram-negative bacteria Laterality: bilateral Lung location: lower lobe of lung Qualified Code(s): J15.6 - Pneumonia due to other Gram-negative bacteria (2) Pulmonary embolism Priority: Primary Status: Acute Assessment and Plan: Began Heparin to Warfarin bridging on 05/28 Today INR was 2.2 which is therapeutic D/C heparin Qualifiers: Pulmonary embolism type: other Chronicity: unspecified Acute cor pulmonale presence: without acute cor pulmonale Qualified Code(s): I26.99 - Other pulmonary embolism without acute cor pulmonale (3) Weakness generalized Priority: Secondary Status: Acute Assessment and Plan: ECF placement on discharge today (4) COPD (chronic obstructive pulmonary disease) Priority: Secondary Status: Chronic Assessment and Plan: On 3 lpm O2 which is home O2 rate Qualifiers: COPD type: chronic bronchitis Chronic bronchitis type: unspecified Qualified Code(s): J42 - Unspecified chronic bronchitis (5) Diabetes mellitus Priority: Secondary Status: Chronic Assessment and Plan: Resume home medications of metformin, pioglitazone, and sitagliptin. 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 Diabetes mellitus complication status : with unspecified complications Qualified Code(s): E11.8 - Type 2 diabetes mellitus with unspecified complications (6) HTN (hypertension) Priority: Secondary Status: Chronic Assessment and Plan: Stable Continue home meds Qualifiers: Hypertension type: essential hypertension Qualified Code(s): I10 - Essential (primary) hypertension (7) Hypothyroid Priority: Secondary Status: Chronic Assessment and Plan: Continue Synthroid Qualifiers: Hypothyroidism type: unspecified Qualified Code(s): E03.9 - Hypothyroidism , unspecified (8) KYLEE (obstructive sleep apnea) Priority: Secondary Status: Chronic Assessment and Plan: Continue to use BiPap while sleeping Hospital course: Mr. Doe is a 77 year old male Discharge discussed with: patient, family, nurse - Time Spent with Patient Total time spent providing and/or coordinating discharge services: - Discharge Medications Prescriptions: Amoxicillin/Clavulanate [Augmentin] 875 mg PO BIDWM 6 Days #12 tablet Furosemide [Lasix] 20 mg PO BID 30 Days #60 tablet Home Medications: Acetylcysteine [I-Fmvqrm-x-Cysteine] 600 mg PO TIDAC 05/17/18 [History] Amitriptyline HCl 100 mg PO DAILY 05/17/18 [History] Aspirin [Ecotrin] 325 mg PO DAILY 05/17/18 [History] Atorvastatin Calcium [Lipitor] 20 mg PO HS 05/17/18 [History] FLUoxetine HCl [Prozac] 20 mg PO DAILY 05/17/18 [History] Finasteride [Proscar] 5 mg PO DAILY 05/17/18 [History] Fish Oil/Dha/Epa [Fish Oil 1,200 mg Fish Oil] 1 cap PO DAILY 05/17/18 [History] Fluticasone Propionate Nasal [Flonase] 1 spr NS DAILY 05/17/18 [History] Fluticasone/Salmeterol [Advair Hfa 230-21 Mcg Inhaler] 1 puff IH DAILY 05/17/18 [History] Gabapentin [Neurontin] 600 mg PO TID 05/17/18 [History] Levothyroxine [Synthroid] 125 mcg PO 0630 05/17/18 [History] Lisinopril [Zestril] 10 mg PO DAILY 05/17/18 [History] Loratadine [Claritin] 10 mg PO DAILY 05/17/18 [History] Lutein 20 mg PO DAILY 05/17/18 [History] Metformin HCl [Glucophage] 1,000 mg PO BID 05/17/18 [History] Metoprolol [Lopressor] 25 mg PO BID 05/17/18 [History] Pioglitazone [Actos] 15 mg PO DAILY 05/17/18 [History] SitaGLIPtin [Januvia] 100 mg PO DAILY 05/17/18 [History] Umeclidinium [place] [Incruse Ellipta] 62.5 mcg IH DAILY 05/17/18 [History] Vit A/Vit C/Vit E/Zinc/Copper [Preservision Areds Tablet] 1 tab PO DAILY [History] Warfarin [Coumadin] 6 mg PO SUMOTUWEFR 05/17/18 [History] Warfarin [Coumadin] 9 mg PO THSA 05/17/18 [History] OxyCODONE Immed Rel [Roxicodone 5 MG] 5 mg PO Q8HR PRN 3 Days #9 tablet [Rx] Amoxicillin/Clavulanate [Augmentin] 875 mg PO BIDWM 6 Days #12 tablet 05/30/18 [ Rx] Furosemide [Lasix] 20 mg PO BID 30 Days #60 tablet 05/30/18 [Rx] Allergies/Adverse Reactions: 3 Allergy/AdvReac Type Severity Reaction Status Date / Time No Known Allergies Allergy Verified 05/17/18 20:27 Date of admission: 05/28/18 09:11 Primary care physician: Shayy Rodgers MD Consults: 05/28/18 11:49 Consult to Manager Review [CONS] Routine Reason for SW Consult: PT/OT recommending SNF; patient and family agreeable Discharging clinician: Lamin Flowers - Constitutional Vitals: Temp Pulse Resp BP Pulse Ox 98.1 F 66 16 129/66 94 05/29/18 20:41 05/30/18 07:40 05/30/18 07:40 05/30/18 07:40 05/30/18 07:40 General appearance: Present: A&O X 3, obese Exam: Head: normocephalic and atraumatic Eyes: PERRL, EOMI, conjunctiva pink, sclera anicteric Neck: supple, trachea midline Lungs: Grossly diminished breath sounds. No wheezes or rhonchi noted Heart: RRR, +S2. No murmurs, clicks, or rubs noted GI: abdomen soft, non-tender, distended. Normoactive bowel sounds Extremities: warm, radial pulses palpable and symmetrical. Chronic venous stasis changes noted in LEs Neuro: A&Ox3 No focal deficits. No abnormal speech Skin: warm, dry, intact - Patient Status Disposition: Transfer SNF Condition: Fair Functional capacity at discharge: uses cane/walker Overall status at discharge: patient is progressing back to baseline - Discharge Instructions Instructions: Furosemide (By mouth), Amoxicillin/Clavulanate Potassium (By mouth), Pulmonary Embolism (DC), Pneumonia (DC) Follow Up With: Shayy Rodgers MD [Primary Care Provider] - 06/04/18 11:45 am Magali De Leon CNP [Advanced Practice Nurse] - (office will call with appt date & time.) Forms: ED Satisfaction Letter Additional Instructions: Follow up with a GI specialist for anemia - Diet and Activity Activity: increase activity as tolerated, wear oxygen at all times Diet: diabetic diet, low fat, low cholesterol, low salt diet <Kolby Villafana - Last Filed: 05/31/18 07:58> Orders not resulted at time of discharge: Pending orders 05/31/18 04:00 PT/INR [Prothrombin Time INR] [COAG] AM 0400 06/01/18 04:00 PT/INR [Prothrombin Time INR] [COAG] AM 0400 Date of Encounter: 05/30/18 - Discharge Diagnosis (1) Weakness generalized Status: Acute (2) COPD (chronic obstructive pulmonary disease) Status: Chronic Qualifiers: COPD type: chronic bronchitis Chronic bronchitis type: unspecified Qualified Code(s): J42 - Unspecified chronic bronchitis (3) Diabetes mellitus Status: Chronic Qualifiers: Diabetes mellitus type: type 2 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 use: unspecified senior care insulin use status Diabetes mellitus complication status : with unspecified complications Qualified Code(s): E11.8 - Type 2 diabetes mellitus with unspecified complications (4) HTN (hypertension) Status: Chronic Qualifiers: Hypertension type: essential hypertension Qualified Code(s): I10 - Essential (primary) hypertension (5) Hypothyroid Status: Chronic Qualifiers: Hypothyroidism type: unspecified Qualified Code(s): E03.9 - Hypothyroidism , unspecified (6) KYLEE (obstructive sleep apnea) Status: Chronic (7) Pulmonary embolism Status: Acute Qualifiers: Pulmonary embolism type: other Chronicity: unspecified Acute cor pulmonale presence: without acute cor pulmonale Qualified Code(s): I26.99 - Other pulmonary embolism without acute cor pulmonale (8) Pneumonia Status: Acute Qualifiers: Pneumonia type: due to other aerobic Gram-negative bacteria Laterality: bilateral Lung location: lower lobe of lung Qualified Code(s): J15.6 - Pneumonia due to other Gram-negative bacteria Hospital course: Mr. Doe is a 77 year old male - Time Spent with Patient Total time spent providing and/or coordinating discharge services: Date of admission: 05/28/18 09:11 Primary care physician: Shayy Rodgers MD Consults: 05/28/18 11:49 Consult to Manager Review [CONS] Routine Reason for SW Consult: PT/OT recommending SNF; patient and family agreeable - Constitutional Vitals: Temp Pulse Resp BP Pulse Ox 98.1 F 79 20 127/57 90 05/29/18 20:41 05/30/18 11:04 05/30/18 11:04 05/30/18 11:04 05/30/18 11:04 - Attending Attestation I examined this patient and my medical decision-making was reviewed with the Resident Physician Dr. Flowers. I agree with the documented findings, disposition and treatment plan as described except to the extent set forth below. Mr. 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 Patient typically is oxygen dependent on 3 L at home. Now he is alert , awake and O x 3. Denied any CP / SOB. Feels better today. Gen: A, A, O x 3 Chest: Diminished BS b/l, no crackles, rales Heart: S1S2+ a/p 1. Acute on chronic hypoxic resp failure 2. Acute Pneumonia - mostly bacterial 3. Acute COPD exacerbation Cont PO Abx total 7 days course Duoneb and O2 4. Acute PE INR therapeutic Cont Coumadin 4. Pericardial effusion 5. Chronic diastolic CHF cont Lasix 20mg PO BID Medically stable to d/c to ECF today
[2018-05-30 11:07] VITALS: BP 127/57
[2018-05-30] MEDS: Budesonide/Formoterol 160/4.5 MDI IH SCH (11:21)
--- NOTE | 2018-05-30 11:51 | Physician Discharge Referral ---
Extended[facility] Referral Info Transfer To: [facility] Provider in Charge: Dr. Villafana Provider in Charge after Transfer: PCP Institutional Level of Care: Skilled - Diagnosis (1) Pneumonia Priority: Primary Status: Acute (2) Pulmonary embolism Priority: Primary Status: Acute (3) Weakness generalized Priority: Secondary Status: Acute (4) COPD (chronic obstructive pulmonary disease) Priority: Secondary Status: Chronic (5) Diabetes mellitus Priority: Secondary Status: Chronic (6) HTN (hypertension) Priority: Secondary Status: Chronic (7) Hypothyroid Priority: Secondary Status: Chronic (8) KYLEE (obstructive sleep apnea) Priority: Secondary Status: Chronic - Transfer Medications Prescriptions: Amoxicillin/Clavulanate [Augmentin] 875 mg PO BIDWM 6 Days #12 tablet Furosemide [Lasix] 20 mg PO BID 30 Days #60 tablet Home Medications: Acetylcysteine [K-Vrhcye-w-Cysteine] 600 mg PO TIDAC 05/17/18 [History] Amitriptyline HCl 100 mg PO DAILY 05/17/18 [History] Aspirin [Ecotrin] 325 mg PO DAILY 05/17/18 [History] Atorvastatin Calcium [Lipitor] 20 mg PO HS 05/17/18 [History] FLUoxetine HCl [Prozac] 20 mg PO DAILY 05/17/18 [History] Finasteride [Proscar] 5 mg PO DAILY 05/17/18 [History] Fish Oil/Dha/Epa [Fish Oil 1,200 mg Fish Oil] 1 cap PO DAILY 05/17/18 [History] Fluticasone Propionate Nasal [Flonase] 1 spr NS DAILY 05/17/18 [History] Fluticasone/Salmeterol [Advair Hfa 230-21 Mcg Inhaler] 1 puff IH DAILY 05/17/18 [History] Gabapentin [Neurontin] 600 mg PO TID 05/17/18 [History] Levothyroxine [Synthroid] 125 mcg PO 0630 05/17/18 [History] Lisinopril [Zestril] 10 mg PO DAILY 05/17/18 [History] Loratadine [Claritin] 10 mg PO DAILY 05/17/18 [History] Lutein 20 mg PO DAILY 05/17/18 [History] Metformin HCl [Glucophage] 1,000 mg PO BID 05/17/18 [History] Metoprolol [Lopressor] 25 mg PO BID 05/17/18 [History] Pioglitazone [Actos] 15 mg PO DAILY 05/17/18 [History] SitaGLIPtin [Januvia] 100 mg PO DAILY 05/17/18 [History] Umeclidinium [place] [Incruse Ellipta] 62.5 mcg IH DAILY 05/17/18 [History] Vit A/Vit C/Vit E/Zinc/Copper [Preservision Areds Tablet] 1 tab PO DAILY [History] Warfarin [Coumadin] 6 mg PO SUMOTUWEFR 05/17/18 [History] Warfarin [Coumadin] 9 mg PO THSA 05/17/18 [History] OxyCODONE Immed Rel [Roxicodone 5 MG] 5 mg PO Q8HR PRN 3 Days #9 tablet [Rx] Amoxicillin/Clavulanate [Augmentin] 875 mg PO BIDWM 6 Days #12 tablet 05/30/18 [ Rx] Furosemide [Lasix] 20 mg PO BID 30 Days #60 tablet 05/30/18 [Rx] Allergies/Adverse Reactions: 3 Allergy/AdvReac Type Severity Reaction Status Date / Time No Known Allergies Allergy Verified 05/17/18 20:27 - Respiratory Orders Oxygen / L per min (3 lpm) Smoking Cessation: Smoking cessation has been advised. For more information, call the [place] Tobacco Quit Line at 5-197-TINNNOW. - Ancillary Orders May use pressure relief devices daily prn - Advance Directives Living Will: Yes Code Status: Full Code CERTIFICATION: I certify that the transfer of the above named patient to an Extended Care Facility is necessary for the continuing treatment of the diagnosis listed. The above information is true and accurate reflection of patient's current condition. Confidential - Redisclosure prohibited without a patient's written consent.
--- NOTE | 2018-05-30 12:59 | Event Note ---
Date of Encounter: 05/30/18 Time of Encounter: 12:56 - Cardiology Event Note Limited TTE with small to moderate pericardial effusion, appears stable or sightly improved. Cardiology will sign off and will follow in outpatient setting. Follow up set.
[2018-05-30] MEDS ORDERED: Aminoglycoside Consult 1 EACH MC ONE (17:08)
[2018-05-30] MEDS ORDERED: *HR* Warfarin 7.5 MG TABLET PO ONE (18:00)
== END 2018-05-30 17:09 | DRG 871 ==
LOC: 3BNU 12:18 → EMEROO 12:18 → SUATTDRO 18:10 → 2NENU 18:28
PROVIDERS: ADMIT Hospitalist; ATTEND Hospitalist

== ENCOUNTER 2018-06-17 15:21 | Inpatient (IN) ==
[2018-06-17] MEDS ORDERED: 0.9 % Sodium Chloride 1,000 ML IVC ONE (15:25)
[2018-06-17 15:45] LABS: Basophils % 0.1 %; Eosinophils # 0.5 K/mcL (0.0-0.6); Eosinophils % 2.7 %; Hematocrit 41.1 % (37.5-50.1); Lymphocytes # 1.9 K/mcL (0.6-4.6); Lymphocytes % 9.5 %; Mean Corpuscular HGB Conc 31.6 g/dL (31.6-35.5); Mean Corpuscular Hemoglobin 29.3 pg (28.0-33.3); Mean Corpuscular Volume 92.8 fL (83.0-100.0); Mean Platelet Volume 10.9 fL (9.4-12.4); Monocytes # 0.7 K/mcL (0.0-1.3); Monocytes % 3.3 %; Neutrophils # 16.6 K/mcL (1.6-8.9); Platelet Count 156 K/mcL (140-400); Red Blood Count 4.43 M/mcL (4.19-5.50); Red Cell Distribution Width 17.3 % (11.5-14.5); Segmented Neutrophils % 83.4 %
[2018-06-17] MEDS ORDERED: Isovue-370 500 ML INFUS..BTL IV ONE (15:58)
--- NOTE | 2018-06-17 15:59 | Emergency Department Note ---
Disposition Clinical Impression: Atrial fibrillation with RVR, Near syncope Hypotension Qualifiers: Hypotension type: unspecified hypotension type Qualified Code(s): I95.9 - Hypotension, unspecified Disposition: Admitted As Inpatient General Adult HPI - General Chief complaint: ED Weakness Time Seen by Provider: 06/17/18 15:24 Source: EMS Limitations: physical limitation, age - History of Present Illness Pain Scale: 0 - Related Data Home Medications Medication Instructions Recorded Confirmed Acetylcysteine 600 mg PO TIDAC 05/17/18 06/01/18 [C-Pstigm-w-Cysteine] Amitriptyline HCl 100 mg PO DAILY 05/17/18 06/01/18 Aspirin [Ecotrin] 325 mg PO DAILY 05/17/18 06/01/18 Atorvastatin Calcium [Lipitor] 20 mg PO HS 05/17/18 06/01/18 FLUoxetine HCl [Prozac] 20 mg PO DAILY 05/17/18 06/01/18 Finasteride [Proscar] 5 mg PO DAILY 05/17/18 06/01/18 Fish Oil/Dha/Epa [Fish Oil 1,200 1 cap PO DAILY 05/17/18 06/01/18 mg Fish Oil] Fluticasone Propionate Nasal 1 spr NS DAILY 05/17/18 06/01/18 [Flonase] Fluticasone/Salmeterol [Advair Hfa 1 puff IH DAILY 05/17/18 06/01/18 230-21 Mcg Inhaler] Levothyroxine [Synthroid] 125 mcg PO 0605/17/18 06/01/18 Lisinopril [Zestril] 10 mg PO DAILY 05/17/18 06/01/18 Loratadine [Claritin] 10 mg PO DAILY 05/17/18 06/01/18 Lutein 20 mg PO DAILY 05/17/18 06/01/18 Metformin HCl [Glucophage] 1,000 mg PO BID 05/17/18 06/01/18 Metoprolol [Lopressor] 25 mg PO BID 05/17/18 06/01/18 Pioglitazone [Actos] 15 mg PO DAILY 05/17/18 06/01/18 SitaGLIPtin [Januvia] 100 mg PO DAILY 05/17/18 06/01/18 Umeclidinium [place] [Incruse 62.5 mcg IH DAILY 05/17/18 06/01/18 Ellipta] Vit A/Vit C/Vit E/Zinc/Copper 1 tab PO DAILY 05/17/18 06/01/18 [Preservision Areds Tablet] Warfarin [Coumadin] 6 mg PO SUMOTUWEFRSA 05/17/18 06/01/18 Warfarin [Coumadin] 9 mg PO TH 05/17/18 06/01/18 Ipratropium/Albuterol Neb [Duoneb] 3 ml IH Q6HR 06/01/18 06/01/18 Polyethylene Glycol 3350 [MiraLAX] 17 gm PO DAILY PRN 06/01/18 06/01/18 Previous Rx's Medication Instructions Recorded Furosemide [Lasix] 40 mg PO BIDDIURETIC tablet 06/15/18 Gabapentin [Neurontin] 600 mg PO TID #15 tablet 06/15/18 Insulin DETEMIR [Levemir] 20 unit SQ BID [id number] 06/15/18 Allergies Allergy/AdvReac Type Severity Reaction Status Date / Time No Known Allergies Allergy Verified 05/17/18 20:27 Past Medical History - Past Medical History Medical history: Reports: arthritis, atrial fibrillation, COPD, diabetes, GERD, hyperlipidemia, hypertension, thyroid disease, other Surgical history: Reports: cholecystectomy, knee replacement, orthopedic, other , pacemaker Psychiatric history: Reports: no psych history - Social History Smoking Status: Former smoker Smokeless Tobacco Status: No Alcohol use: Reports: none Drug use: Reports: none Physical Exam - General Limitations: physical limitation, age General appearance: other Course - Reevaluation(s) Reevaluation #1: ATTESTATION NOTE I examined this patient and my medical decision-making was reviewed with the Resident Physician, Bryce Najera. I agree with the documented findings, disposition and treatment plan as described except to the extent set forth below. I have personally performed a face to face evaluation on this patient. I have reviewed and agree with the care plan. Briefly: 78-year-old male history PE is on Coumadin history of [place] filter via EMS from long-term facility for near syncope while on toilet. Did not pass out did not strike his head. He is awake and alert he is rather obese he has obstructive sleep apnea his at bedside said that he was found this morning without his customary 3 L/m oxygen on. Patient comes in hypotensive at about 80/50 he has A. fib with RVR in the 130s. Patient getting a judicious fluid boluses were somewhat concerned about recurrent pulmonary embolism patient will get a V/Q CTA afebrile function permits otherwise admission and V/Q admission is anticipated. Providing 45 minutes critical care service for this patient. EKG labs x-rays imaging and interventions are ongoing. Time: 15:57 Vital Signs Temperature 99.8 F H 06/17/18 15:21 Pulse Rate 140 06/17/18 15:21 Respiratory Rate 36 06/17/18 15:21 Blood Pressure 92/61 06/17/18 15:21 O2 Sat by Pulse Oximetry 94 06/17/18 15:21 Temperature 99.8 F H 06/17/18 15:21 Pulse Rate 137 06/17/18 15:52 Respiratory Rate 22 06/17/18 15:52 Blood Pressure 85/38 06/17/18 15:52 O2 Sat by Pulse Oximetry 94 06/17/18 15:52 Oxygen Delivery Oxygen Delivery Venti Mask Medical Decision Making - Lab Data Result diagrams: 06/17/18 15:30 Lab Results 06/17/18 Range/Units 15:30 WBC 19.9 H (4.3-11.1) K/mcL RBC 4.43 (4.19-5.50) M/mcL Hgb 13.0 (12.9-16.9) g/dL Hct 41.1 (37.5-50.1) % MCV 92.8 (83.0-100.0) fL MCH 29.3 (28.0-33.3) pg MCHC 31.6 (31.6-35.5) g/dL RDW 17.3 H (11.5-14.5) % Plt Count 156 (140-400) K/mcL MPV 10.9 (9.4-12.4) fL Immature Gran % 1.0 (0-4) % Seg Neutrophils % 83.4 % Lymphocytes % 9.5 % Monocytes % 3.3 % Eosinophils % 2.7 % Basophils % 0.1 % Neutrophils # 16.6 H (1.6-8.9) K/mcL Lymphocytes # 1.9 (0.6-4.6) K/mcL Monocytes # 0.7 (0.0-1.3) K/mcL Eosinophils # 0.5 (0.0-0.6) K/mcL Basophils # 0.0 (0.0-0.2) K/mcL
--- NOTE | 2018-06-17 16:03 | Emergency Department Note ---
Disposition Clinical Impression: Atrial fibrillation with RVR, Near syncope Hypotension Qualifiers: Hypotension type: unspecified hypotension type Qualified Code(s): I95.9 - Hypotension, unspecified Pneumonia Qualifiers: Pneumonia type: due to unspecified organism Laterality: right Lung location: unspecified part of lung Qualified Code(s): J18.9 - Pneumonia, unspecified organism Sepsis Qualifiers: Sepsis type: sepsis due to unspecified organism Qualified Code(s): A41.9 - Sepsis, unspecified organism Disposition: Admitted As Inpatient General Adult HPI - General Chief complaint: ED Weakness Time Seen by Provider: 06/17/18 15:24 Source: patient, family, EMS Mode of arrival: EMS Limitations: physical limitation, age Nursing Notes Reviewed: Yes Vital Signs Reviewed: Yes - History of Present Illness HPI Narrative: Patient is an 78-year-old male with a past medical history of diastolic CHF, pulmonary embolism, pleural effusion, COPD on 3 L nasal cannula, KYLEE presents to the emergency Department by squad for generalized weakness and near syncopal event. Quench his quad patient was weaker than normal when waking up this morning was complaining of dyspnea. Take the patient went to the toilet and after using toilet became near syncopal screen for help and nursing staff and the patient back to his bed and called the squad. According to EMS there were no reports of actual syncope or head injury, nursing report did mention possible head injury. Patient is on Coumadin. Patient himself is mentating states that he is is feeling weaker than usual and more short of breath today with a cough and productive sputum. Pain Scale: 0 - Related Data Home Medications Medication Instructions Recorded Confirmed Acetylcysteine 600 mg PO TIDAC 05/17/18 06/17/18 [S-Vphqeg-a-Cysteine] Amitriptyline HCl 100 mg PO DAILY 05/17/18 06/17/18 Aspirin [Ecotrin] 325 mg PO DAILY 05/17/18 06/17/18 Atorvastatin Calcium [Lipitor] 20 mg PO HS 05/17/18 06/17/18 FLUoxetine HCl [Prozac] 20 mg PO DAILY 05/17/18 06/17/18 Finasteride [Proscar] 5 mg PO DAILY 05/17/18 06/17/18 Fish Oil/Dha/Epa [Fish Oil 1,200 1 cap PO DAILY 05/17/18 06/17/18 mg Fish Oil] Fluticasone Propionate Nasal 1 spr NS DAILY 05/17/18 06/17/18 [Flonase] Fluticasone/Salmeterol [Advair Hfa 1 puff IH DAILY 05/17/18 06/17/18 230-21 Mcg Inhaler] Levothyroxine [Synthroid] 125 mcg PO 0630 05/17/18 06/17/18 Lisinopril [Zestril] 10 mg PO DAILY 05/17/18 06/17/18 Loratadine [Claritin] 10 mg PO DAILY 05/17/18 06/17/18 Lutein 20 mg PO DAILY 05/17/18 06/17/18 Metformin HCl [Glucophage] 1,000 mg PO BID 05/17/18 06/17/18 Metoprolol [Lopressor] 25 mg PO BID 05/17/18 06/17/18 Pioglitazone [Actos] 15 mg PO DAILY 05/17/18 06/17/18 SitaGLIPtin [Januvia] 100 mg PO DAILY 05/17/18 06/17/18 Umeclidinium [place] [Incruse 62.5 mcg IH DAILY 05/17/18 06/17/18 Ellipta] Vit A/Vit C/Vit E/Zinc/Copper 1 tab PO DAILY 05/17/18 06/17/18 [Preservision Areds Tablet] Warfarin [Coumadin] 6 mg PO [id number] 05/17/18 06/17/18 Warfarin [Coumadin] 9 mg PO TH 05/17/18 06/17/18 Ipratropium/Albuterol Neb [Duoneb] 3 ml IH Q6HR 06/01/18 06/17/18 Polyethylene Glycol 3350 [MiraLAX] 17 gm PO DAILY PRN 06/01/18 06/17/18 Previous Rx's Medication Instructions Recorded Furosemide [Lasix] 40 mg PO BIDDIURETIC tablet 06/15/18 Gabapentin [Neurontin] 600 mg PO TID #15 tablet 06/15/18 Insulin DETEMIR [Levemir] 20 unit SQ BID [id number] 06/15/18 Allergies Allergy/AdvReac Type Severity Reaction Status Date / Time No Known Allergies Allergy Verified 05/17/18 20:27 All systems ED: reviewed and negative except as stated. Review of Systems: As Per HPI Constitutional: Reports: weakness. Denies: fever, chills Cardiovascular: Reports: dyspnea on exertion. Denies: chest pain, palpitations , edema, syncope Respiratory: Reports: cough, sputum production. Denies: dyspnea, wheezes Gastrointestinal: Denies: abdominal pain, nausea, vomiting, diarrhea Genitourinary: Denies: dysuria Integumentary: Denies: rash Neurological: Denies: headache, numbness, paresthesias, confusion Past Medical History - Past Medical History Attestation: Yes The following information was validated with the patient. Medical history: Reports: arthritis, atrial fibrillation, COPD, diabetes, GERD, hyperlipidemia, hypertension, thyroid disease, other Surgical history: Reports: cholecystectomy, knee replacement, orthopedic, other , pacemaker Psychiatric history: Reports: no psych history - Social History Smoking Status: Former smoker Smokeless Tobacco Status: No Alcohol use: Reports: none Drug use: Reports: none Physical Exam - General Limitations: physical limitation, age General appearance: alert, in distress, other - Head Head exam: atraumatic, normocephalic, normal inspection - Eye Eye exam: Present: normal appearance, PERRL - ENT ENT exam: normal exam, normal oropharynx, TM's normal bilaterally - Neck Neck exam: Present: normal inspection, full ROM, trachea midline - Chest Chest inspection: Present: normal inspection, symmetric chest wall rise. Absent : tenderness - Respiratory Respiratory exam: Present: respiratory distress, other (Diminished lung sounds in the right base). Absent: wheezes - Cardiovascular Cardiovascular exam: Present: tachycardia, irregular rhythm, +S1, +S2 - Abdominal Exam Abdominal exam: Present: soft, Non-Tender, normal bowel sounds. Absent: tenderness - Extremities Exam Extremities exam: Present: normal inspection, full ROM, normal capillary refill , pedal edema (Mild bilateral pitting edema.), other (Chronic venous stasis changes of the bilateral lower extremities). Absent: tenderness, calf tenderness - Back Exam Back exam: Present: normal inspection, full ROM. Absent: tenderness, CVA tenderness (R), CVA tenderness (L) - Neurological Exam Neurological exam: Present: alert, oriented X3. Absent: motor sensory deficit - Psychiatric Psychiatric exam: Present: normal affect, normal mood - Skin Skin exam: Present: warm, dry, intact, normal color Course Course Narrative: Is discharged on 06/15/2018 approximately 2 days ago.While in the hospital he was treated for a pleural effusion in which thoracentesis was not indicated and he was continued on by mouth Lasix. Is also treated for diastolic CHF in which his EF was 50%.his atrial fibrillation was rate controlled at that time on a beta sami and his continued on Coumadin with a subtherapeutic INR. Given the history does appear that the patient was without his BiPAP and his oxygen this morning causing the beehive toxic possibly inciting his A. fib with RVR causing her to be hypotensive and have a near syncopal event possibly induced vasovagal maneuver considering is having a bowel movement time. Patient is currently hypotensive plan is to provide him with 1 L of IV fluids judiciously given his history of CHF and overload. We will evaluate stability after liter of fluids, otherwise patient is mentating well and talking to family. 15:59 - Judicuous fluid hydration at this time given hx of pleural effusions and CHF. Patient is tachycardic at this time, hypotensive, received approximately 500ml of fluids. Mentating well. Oxygen saturation is approximately 90% on 3L. EKG shows sinus tachycardia. Discussed plan at this time. Patient HR remains tachycardic, considering this may be causing his hypotension we will attempt rate control with a esmolol drip. 16:54 - patient is maintaining a map of greater than 65, however his systolic remains low in the 80s to 100s. His heart rate is improved with asthma all drip sitting around 110. His chest x-ray came back as a significant change from prior chest x-ray today shows a right-sided pleural effusion and possible concern for area of atelectasis versus pneumonia in the right lobe. Given his recent history of hospitalization and complaint of productive sputum and dyspnea as worsening today we will start him empirically on IV antibiotics including Zosyn and Levaquin with one dose given in the emergency department. He has meeting sepsis criteria at this time, he received 1 L of normal saline given his history of fluid overload and CHF cannot be receiving the initial sepsis boluses. 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 VQ scan is not available on the weekends. Plan at this time is to evaluate his coags to see if he is in therapeutic range with his Coumadin. If he has not we will start him on Lovenox. 18:35 - Patient received 1 dose of push-dose pressor and BP improved to 105 systolic. Discussed patient's case with hospitalist on-call. Discussed plan at this time is to add on a lactate, establish a central line in initiate pressors due to the patient's blood pressure being so labile and admission to the ICU. I discussed this with the patient's family, obtained written consent for central line and they agree with current plan. Vital Signs Temperature 99.8 F H 06/17/18 15:21 Pulse Rate 140 06/17/18 15:21 Respiratory Rate 36 06/17/18 15:21 Blood Pressure 92/61 06/17/18 15:21 O2 Sat by Pulse Oximetry 94 06/17/18 15:21 Temperature 100 F H 06/17/18 23:58 Pulse Rate 130 06/18/18 00:00 Respiratory Rate 21 06/18/18 00:09 Blood Pressure 95/78 06/18/18 00:00 O2 Sat by Pulse Oximetry 95 06/18/18 00:09 Oxygen Delivery Oxygen Delivery CPAP Mask O2 Procedures - Central Line Placement Right IJ Central Line Inserted*: Yes Central Line Catheter Replacement*: Yes Central Line Insertion: emergent Consent Obtained: written consent Procedural Pause: verify patient name and date of , timeout performed per policy, jonathan and assess the site, assemble equipment and verify supplies, perform hand hygiene Patient Placed on Monitor/Pulse Ox: Yes During the Procedure: clinician is wearing sterile gloves, cap, mask,& gown during insertion, sterile field and sterile technique are maintained, patient's face is covered with drape or mask and wearing a cap, everyone in room is wearing a mask Central Line Prep: Chlorhexidine scrub Prep the Procedure Site: apply chloraprep to the skin using a back and forth scrubbing motion, apply chloraprep for 30 seconds (upper body), 1-2 min ( femoral sites), drape the patient with a full body drape Local Anesthetic: lidocaine 1% Amount of anesthesia used (mL): 2 Ultrasound Used for Placement: Yes Central Line Lumen Inserted: triple Post Procedure: sutured in place, good blood return, all ports aspirated, flushed, capped, sterile dressing applied, guide wire removed and visualized, dressing is dated Post Procedure X-Ray: tip of catheter in good position, no pneumothorax seen Patient Tolerated Procedure: well, no complications Complications: none Name of Clinician Inserting Central Line: melva Clinician Assisting/Completing Checklist: Meng Date: 06/17/18 Time: 11:00 Medical Decision Making - Medical Records Medical records reviewed: Yes I reviewed the patient's medical records. - Lab Data Lab results reviewed: Yes I reviewed the patient's lab results. Result diagrams: 06/17/18 23:45 06/17/18 15:30 Lab Results 06/17/18 06/17/18 06/17/18 Range/Units 15:30 15:30 15:30 WBC 19.9 H (4.3-11.1) K/mcL RBC 4.43 (4.19-5.50) M/mcL Hgb 13.0 (12.9-16.9) g/dL Hct 41.1 (37.5-50.1) % MCV 92.8 (83.0-100.0) fL MCH 29.3 (28.0-33.3) pg MCHC 31.6 (31.6-35.5) g/dL RDW 17.3 H (11.5-14.5) % Plt Count 156 (140-400) K/mcL MPV 10.9 (9.4-12.4) fL Immature Gran % 1.0 (0-4) % Seg Neutrophils % 83.4 % Lymphocytes % 9.5 % Monocytes % 3.3 % Eosinophils % 2.7 % Basophils % 0.1 % Neutrophils # 16.6 H (1.6-8.9) K/mcL Lymphocytes # 1.9 (0.6-4.6) K/mcL Monocytes # 0.7 (0.0-1.3) K/mcL Eosinophils # 0.5 (0.0-0.6) K/mcL Basophils # 0.0 (0.0-0.2) K/mcL PT 23.0 H (9.4-12.1) Seconds INR 2.0 APTT 38.3 H D (26.0-36.0) Seconds D-Dimer 3768 H (0-500) ng/mLFEU Sample Site ABG pH (7.32-7.45) pH Units ABG pCO2 (35-45) mmHg ABG pO2 (85-104) mmHg ABG HCO3 (21-27) mEq/L ABG Total CO2 (20-26) mEq/L ABG O2 Saturation (95-98) % ABG Base Excess (-2 to 3) mEq/L [place] Test O2 Delivery Device Inspired O2 (1-15=lpm [id number]=%) Sodium 133 L (136-145) mEq/L Potassium 4.3 (3.5-5.1) mEq/L Chloride 98 (98-107) mEq/L Carbon Dioxide 25 (23-29) mEq/L BUN 28 H (8-23) mg/dL Creatinine 1.64 H (0.70-1.30) mg/dL Est GFR ( Amer) 49 L (> 60) Est GFR (Non-Af Amer) 41 L (> 60) BUN/Creatinine Ratio 17 (6-26) Glucose 154 H (70-105) mg/dL Calculated Osmolality 285 (280-300) Calcium 8.9 (8.6-10.3) mg/dL Phosphorus 2.7 (2.7-4.5) mg/dL Magnesium 1.9 (1.6-2.6) mg/dL Total Bilirubin 1.5 H (0.3-1.0) mg/dL AST 17 (13-39) Units/L ALT 37 (7-52) Units/L Alkaline Phosphatase 49 (34-104) Units/L Troponin I < 0.03 (< 0.04) ng/mL Serum Total Protein 6.5 (6.4-8.9) g/dL Albumin 3.4 L (3.5-5.7) g/dL Globulin 3.1 (2.4-3.5) g/dL Albumin/Globulin Ratio 1.1 (1.1-2.2) TSH 9.948 H (0.340-5.600) mcIU/mL Urine Color (Yellow) Urine Clarity (Clear) Urine pH (5.0-8.0) pH Units Ur Specific [place] (1.010-1.025) Urine Protein (Neg-Trace) mg/dL Urine Glucose (UA) (Normal) mg/dL Urine Ketones (Negative) mg/dL Urine Blood (Negative) Urine Nitrite (Negative) Urine Bilirubin (Negative) Urine Urobilinogen (Normal) mg/dL Ur Leukocyte Esterase (Negative) Urine Microscopic RBC (0-3) per hpf Urine Microscopic WBC (0-3) per hpf Ur Squamous Epith Cells (None-Few) per lpf Urine Bacteria (None-Few) per hpf Hyaline Casts (None-Few) per lpf Ur Culture Indicated? (NO) 06/17/18 06/17/18 Range/Units 16:55 19:57 WBC (4.3-11.1) K/mcL RBC (4.19-5.50) M/mcL Hgb (12.9-16.9) g/dL Hct (37.5-50.1) % MCV (83.0-100.0) fL MCH (28.0-33.3) pg MCHC (31.6-35.5) g/dL RDW (11.5-14.5) % Plt Count (140-400) K/mcL MPV (9.4-12.4) fL Immature Gran % (0-4) % Seg Neutrophils % % Lymphocytes % % Monocytes % % Eosinophils % % Basophils % % Neutrophils # (1.6-8.9) K/mcL Lymphocytes # (0.6-4.6) K/mcL Monocytes # (0.0-1.3) K/mcL Eosinophils # (0.0-0.6) K/mcL Basophils # (0.0-0.2) K/mcL PT (9.4-12.1) Seconds INR APTT (26.0-36.0) Seconds D-Dimer (0-500) ng/mLFEU Sample Site L Radial ABG pH 7.46 H (7.32-7.45) pH Units ABG pCO2 30 L (35-45) mmHg ABG pO2 74 L (85-104) mmHg ABG HCO3 21 (21-27) mEq/L ABG Total CO2 22 (20-26) mEq/L ABG O2 Saturation 96 (95-98) % ABG Base Excess -2 (-2 to 3) mEq/L [place] Test Positive O2 Delivery Device Cannula Inspired O2 4.0 (1-15=lpm [id number]=%) Sodium (136-145) mEq/L Potassium (3.5-5.1) mEq/L Chloride (98-107) mEq/L Carbon Dioxide (23-29) mEq/L BUN (8-23) mg/dL Creatinine (0.70-1.30) mg/dL Est GFR ( Amer) (> 60) Est GFR (Non-Af Amer) (> 60) BUN/Creatinine Ratio (6-26) Glucose (70-105) mg/dL Calculated Osmolality (280-300) Calcium (8.6-10.3) mg/dL Phosphorus (2.7-4.5) mg/dL Magnesium (1.6-2.6) mg/dL Total Bilirubin (0.3-1.0) mg/dL AST (13-39) Units/L ALT (7-52) Units/L Alkaline Phosphatase (34-104) Units/L Troponin I (< 0.04) ng/mL Serum Total Protein (6.4-8.9) g/dL Albumin (3.5-5.7) g/dL Globulin (2.4-3.5) g/dL Albumin/Globulin Ratio (1.1-2.2) TSH (0.340-5.600) mcIU/mL Urine Color Yellow (Yellow) Urine Clarity Clear (Clear) Urine pH 5.0 (5.0-8.0) pH Units Ur Specific [place] 1.020 (1.010-1.025) Urine Protein Negative (Neg-Trace) mg/dL Urine Glucose (UA) Normal (Normal) mg/dL Urine Ketones Negative (Negative) mg/dL Urine Blood Moderate H (Negative) Urine Nitrite Negative (Negative) Urine Bilirubin Small H (Negative) Urine Urobilinogen Normal (Normal) mg/dL Ur Leukocyte Esterase Negative (Negative) Urine Microscopic RBC 50-100 H (0-3) per hpf Urine Microscopic WBC 0-3 (0-3) per hpf Ur Squamous Epith Cells Many H (None-Few) per lpf Urine Bacteria None Seen (None-Few) per hpf Hyaline Casts Few (None-Few) per lpf Ur Culture Indicated? NO (NO) - Radiology Data Radiology results reviewed: Yes I reviewed the patient's radiology results. Chest X-Ray 06/17/18 15:25 IMPRESSION: Small-moderate right pleural effusion. Underlying opacity likely represents atelectasis. Pneumonia is not excluded but felt to be less likely. Small left lung base opacity is nonspecific but likely represents atelectasis and pleural fluid. Mild pulmonary edema. D/ / 06/17/2018 16:48:42 Roger Olmos MD / [email or web address] Interpreting Provider: Roger Olmos MD - EKG Data EKG #1 EKG attestation: Yes I reviewed and interpreted this EKG. EKG results narrative: EKG done at 15:33 shows atrial fibrillation with RVR at a rate of 134 bpm. Normal axis. No signs of ST elevation, ST depression or Q waves present. Is changed from prior EKG, last ekg appeared paced.
[2018-06-17 16:07] LABS: Alanine Aminotransferase 37 Units/L (7-52); Albumin 3.4 g/dL (3.5-5.7); Albumin/Globulin Ratio 1.1 (1.1-2.2); Alkaline Phosphatase 49 Units/L (34-104); Aspartate Amino Transferase 17 Units/L (13-39); BUN/Creatinine Ratio 17 (6-26); Bilirubin,Total 1.5 mg/dL (0.3-1.0); Blood Urea Nitrogen 28 mg/dL (8-23); Calcium 8.9 mg/dL (8.6-10.3); Carbon Dioxide 25 mEq/L (23-29); Chloride 98 mEq/L (98-107); Globulin 3.1 g/dL (2.4-3.5); Glucose 154 mg/dL (70-105); Osmolality,Calculated 285 (280-300); Potassium 4.3 mEq/L (3.5-5.1); Sodium 133 mEq/L (136-145); Total Protein 6.5 g/dL (6.4-8.9); eGFR For Non-African Americans 41 (> 60)
[2018-06-17 16:08] LABS: Troponin I < 0.03 ng/mL (< 0.04)
[2018-06-17] MEDS ORDERED: Esmolol 2.5 GM/250 ML MLS IVC SCH (16:15)
[2018-06-17 16:23] LABS: Thyroid Stimulating Hormone 9.948 mcIU/mL (0.340-5.600)
[2018-06-17] MEDS ORDERED: Levofloxacin 750 MG/150 ML 750 MG/150 ML BAG IVPB ONE (16:52)
[2018-06-17] MEDS ORDERED: Piperacillin/Tazobactam 3.375 GM in 0.9 % Sodium Chloride Mini Bag 100 ML IVPB ONE (16:52)
[2018-06-17 17:03] LABS: Activated Partial Thrombo Time 38.3 Seconds (26.0-36.0)
[2018-06-17 17:09] LABS: Bilirubin,Urine Small (Negative); Blood,Urine Moderate (Negative); Clarity,Urine Clear (Clear); Color,Urine Yellow (Yellow); Glucose,Urine (UA) Normal (Normal); Ketones,Urine Negative (Negative); Leukocyte Esterase,Urine Negative (Negative); Nitrite,Urine Negative (Negative); Protein,Urine Negative (Neg-Trace); Urobilinogen,Urine Normal (Normal)
[2018-06-17 17:11] LABS: Bacteria,Urine None Seen per hpf (None-Few); RBC,Urine 50-100 per hpf (0-3); Squamous Epithelial Cell,Urine Many per lpf (None-Few); WBC,Urine 0-3 per hpf (0-3)
[2018-06-17 17:28] LABS: Hyaline Casts,Urine Few per lpf (None-Few)
[2018-06-17] MEDS ORDERED: *HR* EPINEPHrine 1 MG/10 ML SYRINGE IVP ONE (18:09)
[2018-06-17] MEDS ORDERED: Acetaminophen 325 MG TABLET PO PRN (19:50)
[2018-06-17] MEDS ORDERED: Naloxone 0.4 MG/ML INJ IVP PRN (19:50)
[2018-06-17] MEDS ORDERED: Ondansetron 4 MG/2 ML VIAL IVP PRN (19:50)
[2018-06-17 20:00] LABS: ABG Base Excess -2 mEq/L (-2 to 3); ABG HCO3 21 mEq/L (21-27); ABG Oxygen Saturation 96 % (95-98); ABG PCO2 30 mmHg (35-45); ABG PH 7.46 pH Units (7.32-7.45); ABG PO2 74 mmHg (85-104); ABG TCO2 22 mEq/L (20-26)
[2018-06-17] MEDS ORDERED: 0.9 % Sodium Chloride 1,000 ML IVC SCH ×2 (20:00→20:19)
[2018-06-17] MEDS ORDERED: Norepinephrine 4 MG in D5% in Water 250 ML IVC SCH (20:00)
[2018-06-17] MEDS ORDERED: Vancomycin (wt based) 1,000 MG VIAL IVPB SCH (20:00)
[2018-06-17] MEDS ORDERED: Dextrose Gel 15 GM/37.5 ML TUBE PO PRN ×2 (20:08)
[2018-06-17] MEDS ORDERED: D5% in Water 1,000 ML IVC PRN (20:08)
[2018-06-17] MEDS ORDERED: *HR* Dextrose 50 % in Water (Syg) 50 ML SYRINGE IVP PRN (20:08)
--- NOTE | 2018-06-17 20:08 | Internal Med History&Physical ---
Date of Encounter: 06/17/18 Time of Encounter: 20:02 Internal Medicine - H&P: HPI Admitted From: Long-term Nursing Facility Plans for Post Hospital Care: Transfer Detention Care History of present illness: Mr. Doe is a 78 year old male with history of diastolic heart failure, pulmonary embolism, atrial fibrillation on Coumadin and recent hospitalization for pneumonia presented to the emergency department for near syncope. As per documentation [facility] for an episode of lightheadedness while he was having a bowel movement. No documentation of head trauma, or fall or loss of consciousness associated with the lightheadedness. Because of these symptoms he was transferred to [facility] ED for further evaluation. As per he was not on his usual 3 L nasal cannula while in the care home nor was he compliant with his cpap machine. In the ED blood pressure was in the 80s over 50s and he was found to be in A. fib with RVR in the 130s. As he has multiple risk factors CT angiogram of the chest was done in the ED to rule out PE, Results below. He was started on esmolol drip in the ED to control the rapid heart rate as of was thought the hypo-tension is due to A. fib with RVR. Admission labs showed white count of 19.9 with neutrophilic predominance, CHAS and hematuria so he was endorsed for admission to ICU for septic shock Patient was seen at bedside, currently is not complaining of any fever or chills , chest pain, cough, shortness of breath, abdominal, N/V/D, headache, vision loss, head trauma. he reports that he felt lightheaded while in the bathroom but never lost consciousness and believe that it was secondary to not using his oxygen. his symptoms alleviated with oxygen and laying down, cannot recall aggravating factors, duration of his symptoms was short. cannot recall associating factors but denies bowel or bladder incontinence. he denies hemoptysis, hematochezia, hematemesis. I spoke to the family at length at bedside, I discussed the need for possible mechanical ventilation, and CODE STATUS was discussed. at bedside wishes the patient to be full code. Past Med Surg Social Fam HX - Past Medical History Medical history: arthritis, atrial fibrillation, COPD, diabetes, GERD, hyperlipidemia, hypertension, thyroid disease, other Additional medical history: Hypothyroid. Sleep apnea Psychiatric history: no psych history - Past Surgical History Surgical History: cholecystectomy, knee replacement, orthopedic, other, pacemaker Additional surgical history: Gallbladder, bilateral knee replacement, Appendectomy, Right shoulder. - Social History Smoking Status: Former smoker Smokeless Tobacco Status: No Alcohol use: none Drug use: none - Family History Father Adopted: No Family Member Ethnicity: Non- Living Status: Hx Family Cardiac Disorders: No Hx Family Respiratory Disorders: Yes (Asbestosis) Hx Family Cancer: Yes (Lung CA) Hx Family GI Disorders: No Hx Family Endocrine Disorder: No Hx Family Neuromuscular Disorders: No Hx Family Neurologic Disorders: No Hx Family HEENT Disorders: No Hx Family Autoimmune Disorders: No Internal Medicine - H&P: Meds Acetylcysteine [X-Jdaabs-y-Cysteine] 600 mg PO TIDAC 05/17/18 [History] Amitriptyline HCl 100 mg PO DAILY 05/17/18 [History] Aspirin [Ecotrin] 325 mg PO DAILY 05/17/18 [History] Atorvastatin Calcium [Lipitor] 20 mg PO HS 05/17/18 [History] FLUoxetine HCl [Prozac] 20 mg PO DAILY 05/17/18 [History] Finasteride [Proscar] 5 mg PO DAILY 05/17/18 [History] Fish Oil/Dha/Epa [Fish Oil 1,200 mg Fish Oil] 1 cap PO DAILY 05/17/18 [History] Fluticasone Propionate Nasal [Flonase] 1 spr NS DAILY 05/17/18 [History] Fluticasone/Salmeterol [Advair Hfa 230-21 Mcg Inhaler] 1 puff IH DAILY 05/17/18 [History] Levothyroxine [Synthroid] [place] [address]/17/18 [History] Lisinopril [Zestril] 10 mg PO DAILY 05/17/18 [History] Loratadine [Claritin] 10 mg PO DAILY 05/17/18 [History] Lutein 20 mg PO DAILY 05/17/18 [History] Metformin HCl [Glucophage] 1,000 mg PO BID 05/17/18 [History] Metoprolol [Lopressor] 25 mg PO BID 05/17/18 [History] Pioglitazone [Actos] 15 mg PO DAILY 05/17/18 [History] SitaGLIPtin [Januvia] 100 mg PO DAILY 05/17/18 [History] Umeclidinium [place] [Incruse Ellipta] 62.5 mcg IH DAILY 05/17/18 [History] Vit A/Vit C/Vit E/Zinc/Copper [Preservision Areds Tablet] 1 tab PO DAILY [History] Warfarin [Coumadin] 6 mg PO [id number] 05/17/18 [History] Warfarin [Coumadin] 9 mg PO TH 05/17/18 [History] Ipratropium/Albuterol Neb [Duoneb] 3 ml IH Q6HR 06/01/18 [History] Polyethylene Glycol 3350 [MiraLAX] 17 gm PO DAILY PRN 06/01/18 [History] Furosemide [Lasix] 40 mg PO BIDDIURETIC tablet 06/15/18 [Rx] Gabapentin [Neurontin] 600 mg PO TID #15 tablet 06/15/18 [Rx] Insulin DETEMIR [Levemir] 20 unit SQ BID [id number] 06/15/18 [Rx] 3 Allergy/AdvReac Type Severity Reaction Status Date / Time No Known Allergies Allergy Verified 05/17/18 20:27 All Systems PM: review of systems was performed and is negative for pertinent findings except as documented above in the HPI. - Constitutional Vitals: Temp Pulse Resp BP Pulse Ox 99.8 F H 114 20 72/48 94 06/17/18 15:21 06/17/18 19:30 06/17/18 19:30 06/17/18 19:30 06/17/18 19:30 - Other Additional findings: General: Patient is alert, oriented, no acute distress, morbidly obese, speaks in full sentences Head: atraumatic, normocephalic, Eye: normal appearance, PERRL, no scleral icterus, no conjunctival injection, left pupil is slightly more enlarged than the right from previous cataract surgery ENT: dry, membranes moist, normal external ear exam, poor dentition, no oral secretions Neck: normal inspection, trachea midline, full ROM, no carotid bruits Chest: normal inspection, symmetric chest rise, gynacomastia Respiratory: decreased breath sounds bilaterarily secondary to body habitus, absent breath shound on the Right MAL, negative for egophoney, crackles at the left MAL , no accessory muscle use Cardiovascular: Distant heart sounds secondary to body habitus, irregularly irregular, s1 and s2 No clicks or murmors. Abdomen: Bowel sounds present normoactive x-4 quadrants. Abdomen is soft, nondistended. no Epigastric tenderness. No guarding or rebound. No organomegaly noted, obese, has RUQ scar that is well healed musculoskeletal: Spontaneously moving all extremities. strength is 5/5, trace edema, no calf tenderness Skin: warm, dry, intact. left leg from ankle to knee has redness and erythema with distinct border Neuro: Alert and oriented x4. Sensation light touch intact. Cranial nerves 2- 12 is intact. Not aphasic, gait defered Psych: Patient's affect is normal [place] draining bright red blood Internal Med - H&P Results - Labs CBC & Chem 7: 06/17/18 15:30 06/17/18 15:30 Labs: Short CBC 06/17/18 Range/Units 15:30 WBC 19.9 H (4.3-11.1) K/mcL Hgb 13.0 (12.9-16.9) g/dL Hct 41.1 (37.5-50.1) % Plt Count 156 (140-400) K/mcL Neutrophils # 16.6 H (1.6-8.9) K/mcL BMP 06/17/18 15:30 Sodium 133 L Potassium 4.3 Chloride 98 Carbon Dioxide 25 BUN 28 H Creatinine 1.64 H Glucose 154 H Calcium 8.9 Cardiac Enzymes 06/17/18 Range/Units 15:30 Troponin I < 0.03 (< 0.04) ng/mL Liver Function 06/17/18 Range/Units 15:30 Total Bilirubin 1.5 H (0.3-1.0) mg/dL AST 17 (13-39) Units/L ALT 37 (7-52) Units/L Alkaline Phosphatase 49 (34-104) Units/L Albumin 3.4 L (3.5-5.7) g/dL Urine 06/17/18 Range/Units 16:55 Urine Color Yellow (Yellow) Urine Clarity Clear (Clear) Urine pH 5.0 (5.0-8.0) pH Units Ur Specific [place] 1.020 (1.010-1.025) Urine Protein Negative (Neg-Trace) mg/dL Urine Glucose (UA) Normal (Normal) mg/dL - ABG Interpretation ABG results: 06/17/18 19:57 ABG pH 7.46 H ABG pCO2 30 L ABG pO2 74 L ABG HCO3 21 ABG Total CO2 22 ABG O2 Saturation 96 ABG Base Excess -2 - EKG Data -: EKG Interpreted by Myself (afib with RVR, ST-T changes in the lateral leads ) - Impressions ITS Impressions Chest X-Ray 06/17/18 15:25 IMPRESSION: Small-moderate right pleural effusion. Underlying opacity likely represents atelectasis. Pneumonia is not excluded but felt to be less likely. Small left lung base opacity is nonspecific but likely represents atelectasis and pleural fluid. Mild pulmonary edema. D/ / 06/17/2018 16:48:42 Roger Olmos MD / dorinda Interpreting Provider: Roger Olmos MD Head CT 06/17/18 15:35 IMPRESSION: No acute intracranial abnormality. D/ / Donovan Magaña / Donovan Magaña Interpreting Provider: Donovan Magaña Chest CTA 06/17/18 15:58 IMPRESSION: 1. Respiratory motion artifact limits evaluation of the segmental pulmonary artery branches. Previously noted nonocclusive filling defect within the right basilar segmental pulmonary artery branch is not appreciated on this study. No clear evidence of pulmonary emboli otherwise, especially within the central vessels. 2. Moderate to large right pleural effusion, slightly increased from the prior study. Small left pleural effusion. Large area of atelectasis or consolidation involving a large portion of the right lower lobe. Additional atelectasis or consolidation at the left lung base and lingula. 3. Mild to moderate cardiomegaly. Trace pericardial effusion, improved from the prior study. D/ / 06/17/2018 18:47:16 Mark Trejo MD / dorinda Interpreting Provider: Mark Trejo MD - Assessment and plan (1) HAP (hospital-acquired pneumonia) Current Visit: Yes Status: Acute Assessment and plan: multiple recent hospitalizations will start vancomycin, zosyn and levaquin - watch QT sputum cx urine antigens for legionella and strep bcx continues pulse ox oxygen by venturi mask 40% keep sats >92% repeat ABG at 10 pm and consider cpap/bipap vs intubation based on blood gas repeat CXR in the AM low threshold intubation vitals as per protocol Duo-neb Q4H follow lactic acid / procalcitonin (2) Septic shock Current Visit: Yes Status: Acute Assessment and plan: secondary to above central line inserted on levophed - titrate to keep MAP >65. consider phenylephrine if tachycardic send cortisol level management as above problem critical care consulted received 1L of NS in the ED will continue NS at 60ml/hr as he is hypotensive- BP has improved - watch for overload as he has diastolic dysfunction (3) Acute and chronic respiratory failure with hypoxia Current Visit: No Status: Acute Assessment and plan: most likely combination of acute chf, large right sided pleural effusions and HCAP will continue oxygen 40% ventimask - currently saturating 93% on NC RR 18 repeat ABG at 10 pm ABG in the AM CXR in the AM low threshold for intubation (4) Atrial fibrillation with RVR Current Visit: Yes Status: Acute Assessment and plan: most likely secondary to severe hypotension SBP in the 70s initially and MAP < 65 along with hypoxemia was started on esmolol drip in the ED - discontinued now will continue pressure support with levophed if still tachycaridc consider switching to phenylephrine received 1L IVF in the ED will continue - IVF at 60 cc per hour watch for overload INR therapeutic discussed with at bedside the need to hold night dose coumadin for thoracocentesis in the AM in addition to hematuria. risks discussed with the family and they understand (5) Pleural effusion Current Visit: No Status: Acute Assessment and plan: moderately to large pleural effusion on the right side will hold night dose of coumadin for thoracocentesis in the AM follow thoracocentesis labs (6) Hematuria Current Visit: Yes Status: Acute Assessment and plan: [place] catheter with hematuria ?traumatic [place] insertion night dose of coumadin held follow CBC at midnight type and screen consider urology consult Qualifiers: Hematuria type: gross Qualified Code(s): R31.0 - Gross hematuria (7) Pulmonary embolism Current Visit: No Status: Chronic Assessment and plan: sub segmental PE on coumadin INR is therapeutic at 2 follow INR in the AM discussed with at bedside the need to hold night dose coumadin for thoracocentesis in the AM in addition to hematuria. risks discussed with the family and they understand Qualifiers: Pulmonary embolism type: other Chronicity: unspecified Acute cor pulmonale presence: without acute cor pulmonale Qualified Code(s): I26.99 - Other pulmonary embolism without acute cor pulmonale (8) Diastolic CHF, acute on chronic Current Visit: No Status: Acute Assessment and plan: most likely exacerbated by the Afib with RVR will send BNP CXR in the AM lasix and all bp meds held as he is currently hypotensive TTE done 06/01/18 - LVEF 50%. There is no LV thrombus. Normal right ventricular structure and function. Definity echo contrast was used. There is no pericardial effusion present. (9) Acute kidney injury Current Visit: No Status: Resolved Assessment and plan: most likely secondary to hypoperfusion and septic shock will continue vasopressor support IVF fluids at 60 cc per hour - watch for overload strict intake and out put (10) Cellulitis of left leg without foot Current Visit: Yes Status: Acute Assessment and plan: on vancomycina dzosyn folllow blood cx ?fungal component lotramin ordered (11) Morbid obesity Current Visit: No Status: Chronic Assessment and plan: nutrition consult BMI 40 (12) DVT prophylaxis Current Visit: No Status: Acute Assessment and plan: SCds for now has therapeutic INR at 2 - Time Spent With Patient Total time spent is greater than 50% in coordination of care (as documented) at patient's floor/unit and/or counseling patient: Sepsis Reassessment Note - Evaluation Current Stage of Sepsis: septic shock Possible Source of Sepsis: pulmonary - Focused Exam Date of Encounter: 06/17/18 Time of Encounter: 20:27 Vital Signs: Vital Signs Temp Pulse Resp BP Pulse Ox 06/17/18 20:20 129 20 101/58 98 06/17/18 19:30 114 20 72/48 94 06/17/18 19:00 109 20 79/67 95 06/17/18 18:12 94 06/17/18 18:00 113 20 103/57 96 06/17/18 17:16 114 24 72/55 95 06/17/18 17:00 136 24 65/40 95 06/17/18 16:30 126 98/82 94 06/17/18 16:16 130 22 108/41 93 06/17/18 16:00 128 24 91/58 95 06/17/18 15:52 137 22 85/38 94 06/17/18 15:43 141 51/35 93 06/17/18 15:21 99.8 F H 140 36 92/61 94 Respiratory Exam: Present: distant breath sounds, diminished air movement Cardiovascular Exam: Present: irregulary irregular, S1, S2 Capillary Refill: < 2 seconds Peripheral Pulse Strength: 2+ slightly diminished Peripheral Pulse Location: Radial Skin Exam: normal turgor - Reassessment Comments Comments: General: Patient is alert, oriented, no acute distress, morbidly obese Head: atraumatic, normocephalic, Eye: normal appearance, PERRL, no scleral icterus, no conjunctival injection, left pupil is slightly more enlarged than the right from previous cataract surgery ENT: dry, membranes moist, normal external ear exam, poor dentition, no oral secretions Neck: normal inspection, trachea midline, full ROM, no carotid bruits Chest: normal inspection, symmetric chest rise Respiratory: decreased breath sounds bilaterarily secondary to body habitus, absent breath shound on the Right MAL, negative for egophoney, crackles at the left MAL Cardiovascular: Distant heart sounds secondary to body habitus, irregularly irregular, s1 and s2 No clicks or murmors. Abdomen: Bowel sounds present normoactive x-4 quadrants. Abdomen is soft, nondistended. no Epigastric tenderness. No guarding or rebound. No organomegaly noted, obese musculoskeletal: Spontaneously moving all extremities. strength is 5/5, trace edema, no calf tenderness Skin: warm, dry, intact. left leg from ankle to knee has redness and erythema with distinct border Neuro: Alert and oriented x4. Sensation light touch intact. Cranial nerves 2- 12 is intact. Not aphasic, gait defered Psych: Patient's affect is normal
[2018-06-17 20:13] LABS: Magnesium 1.9 mg/dL (1.6-2.6); Phosphorous 2.7 mg/dL (2.7-4.5)
[2018-06-17] MEDS ORDERED: Phenylephrine 10 MG in D5% in Water 250 ML IVC SCH ×2 (21:00→22:45)
[2018-06-17] MEDS ORDERED: Insulin DETEMIR 100 UNIT/ML X5UNITS SQ SCH (21:00)
[2018-06-17 21:24] LABS: VBG HCO3 23 mEq/L (21-27); VBG PCO2 40 mmHg (41-51); VBG PH 7.36 pH Units (7.32-7.42); VBG PO2 56 mmHg (25-50)
[2018-06-17] MEDS: Pantoprazole 40 MG VIAL IVP SCH (22:32)
[2018-06-17] MEDS: *HR* Heparin 5,000 UNIT/ML VIAL SQ SCH (22:34)
[2018-06-17] MEDS: Clotrimazole 1% CRM 15 GM TUBE TP SCH (22:34)
[2018-06-17] MEDS: Ipratropium/Albuterol Neb 3 ML IH SCH (22:36)
[2018-06-17] MEDS ORDERED: Phenylephrine 20 MG in D5% in Water 500 ML IVC SCH (22:45)
[2018-06-17] MEDS: Piperacillin/Tazobactam 3.375 GM in 0.9 % Sodium Chloride Mini Bag 100 ML IVPB SCH (23:42)
[2018-06-17] MEDS: Insulin LISPRO 300 UNITS/3 ML VIAL SQ SCH (23:48)
[2018-06-17 23:57] LABS: ABG Base Excess -1 mEq/L (-2 to 3); ABG HCO3 23 mEq/L (21-27); ABG Oxygen Saturation 95 % (95-98); ABG PCO2 34 mmHg (35-45); ABG PH 7.43 pH Units (7.32-7.45); ABG PO2 74 mmHg (85-104); ABG TCO2 24 mEq/L (20-26)
[2018-06-17 23:58] LABS: Basophils % 0.1 %; Eosinophils # 0.2 K/mcL (0.0-0.6); Eosinophils % 1.1 %; Hematocrit 35.1 % (37.5-50.1); Immature Granulocytes % 0.8 % (0-4); Lymphocytes # 1.2 K/mcL (0.6-4.6); Lymphocytes % 5.8 %; Mean Corpuscular HGB Conc 32.2 g/dL (31.6-35.5); Mean Corpuscular Hemoglobin 29.7 pg (28.0-33.3); Mean Corpuscular Volume 92.4 fL (83.0-100.0); Mean Platelet Volume 10.7 fL (9.4-12.4); Monocytes # 0.8 K/mcL (0.0-1.3); Monocytes % 3.9 %; Neutrophils # 18.8 K/mcL (1.6-8.9); Platelet Count 145 K/mcL (140-400); Red Cell Distribution Width 17.4 % (11.5-14.5); Segmented Neutrophils % 88.3 %
[2018-06-17 23:59] LABS: Hemoglobin 11.3 g/dL (12.9-16.9)
[2018-06-18] MEDS: Ipratropium/Albuterol Neb 3 ML IH SCH ×7 (00:09→23:18)
[2018-06-18] MEDS: Phenylephrine 50 MG in D5% in Water 250 ML IVC SCH (00:51)
[2018-06-18 04:28] LABS: ABG Base Excess 0 mEq/L (-2 to 3); ABG HCO3 24 mEq/L (21-27); ABG Oxygen Saturation 98 % (95-98); ABG PCO2 37 mmHg (35-45); ABG PH 7.42 pH Units (7.32-7.45); ABG PO2 93 mmHg (85-104); ABG TCO2 25 mEq/L (20-26); Blood Gas PEEP 8 cm H2O
[2018-06-18 04:47] LABS: Basophils % 0.1 %; Eosinophils # 0.4 K/mcL (0.0-0.6); Eosinophils % 2.2 %; Hematocrit 35.4 % (37.5-50.1); Hemoglobin 11.1 g/dL (12.9-16.9); Immature Granulocytes % 1.2 % (0-4); Lymphocytes # 1.8 K/mcL (0.6-4.6); Lymphocytes % 9.3 %; Mean Corpuscular HGB Conc 31.4 g/dL (31.6-35.5); Mean Corpuscular Volume 92.4 fL (83.0-100.0); Mean Platelet Volume 10.8 fL (9.4-12.4); Neutrophils # 15.6 K/mcL (1.6-8.9); Platelet Count 147 K/mcL (140-400); Red Blood Count 3.83 M/mcL (4.19-5.50); Red Cell Distribution Width 17.3 % (11.5-14.5); Segmented Neutrophils % 82.2 %
[2018-06-18 04:54] LABS: INR 2.6; Prothrombin Time 28.8 Seconds (9.4-12.1)
[2018-06-18 05:07] LABS: Alanine Aminotransferase 29 Units/L (7-52); Albumin/Globulin Ratio 1.1 (1.1-2.2); Alkaline Phosphatase 41 Units/L (34-104); Aspartate Amino Transferase 12 Units/L (13-39); BUN/Creatinine Ratio 18 (6-26); Bilirubin,Total 1.4 mg/dL (0.3-1.0); Blood Urea Nitrogen 22 mg/dL (8-23); Calcium 8.1 mg/dL (8.6-10.3); Carbon Dioxide 23 mEq/L (23-29); Chloride 101 mEq/L (98-107); Globulin 2.7 g/dL (2.4-3.5); Glucose 174 mg/dL (70-105); Osmolality,Calculated 280 (280-300); Potassium 3.8 mEq/L (3.5-5.1); Sodium 131 mEq/L (136-145); Total Protein 5.7 g/dL (6.4-8.9); eGFR For Non-African Americans 57 (> 60)
[2018-06-18] MEDS: *HR* Heparin 5,000 UNIT/ML VIAL SQ SCH (05:44)
[2018-06-18] MEDS: Insulin LISPRO 300 UNITS/3 ML VIAL SQ SCH ×4 (05:44→23:16)
[2018-06-18] MEDS ORDERED: *HR* Acetylcysteine 20% 600 MG/3 ML ORAL SYRINGE PO SCH (07:30)
--- NOTE | 2018-06-18 07:42 | Pulmonology Consult Note ---
<Alba Campos - Last Filed: 06/18/18 14:56> Date of Encounter: 06/18/18 Time of Encounter: 07:42 Assessment and Plan (1) HAP (hospital-acquired pneumonia) Current Visit: Yes Status: Acute Multiple hospitalizations recently - Discharged on 05/30 for bilateral pneumonia and PE, Discharged on 06/15 for acute CHF exacerbation with pleural effusions. Urine antigens negative for Legionella and Strep. Blood and sputum cultures pending. CTA + for RLL atelectasis versus consolidation Lactic Acid 1.8 Patient is afebrile. Currently on CPAP. O2 saturation was in the low 80s when on 3L NC, especially when conversing. Vancomycin, Zosyn, Levaquin on day 1 of 8, will monitor QT. If cultures negative , will deescalate. Continue Duonebs every 4 hours as needed. Continue CPAP PRN. (2) Septic shock Current Visit: Yes Status: Acute Possibly secondary to HCAP, however if no true source, more likely cardiac in nature. Central line properly in place. MAP goal >65 Urine antigens negative for legionella and strep. Blood and sputum cultures pending. Patient is afebrile, hypotensive, and tachycardic. Stopped IVF due to lack of improvement and concern for overload with history of diastolic heart failure. Continue antibiotics, will deescalate pending cultures. (3) Acute respiratory failure with hypoxia Current Visit: Yes Status: Acute Likely multifactorial, suspect large right sided pleural effusion, acute CHF, and HCAP to be contributing. CTA + for moderate to large right sided pleural effusion increased from prior BNP 109 Urine antigens negative, blood and sputum cultures pending ABG within normal limits today Patient complaining of SOB, especially when conversational. Not saturating well on 3L NC. CPAP as needed with a goal of 92%. Duonebs every 4 hours as needed (4) Atrial fibrillation with RVR Current Visit: Yes Status: Acute Etiology unknown, patient reports 3 month history. Possibly secondary to severe hypotension SBP 50s to 70s on admission. Was started on esmolol in the ED, due to hypotension was switched to phenylephrine, which was discontinued this morning. INR 2.6 today On Metoprolol 25 BID at home. Patient denies palpitations or chest pain Amiodarone started for rhythm control, will consider adding Metoprolol if BP normalizes. (5) Pleural effusion Current Visit: Yes Status: Acute Likely related to diastolic heart failure, also consider patient's history of PE and HCAP. CTA + moderate to large right sided pleural effusion. Negative for PE. Cultures pending BNP 109 INR 2.6 today Patient admits to SOB. Denies chest pain. Will continue to hold coumadin today and recheck INR. If below 2 tomorrow, will consider therapeutic/diagnostic thoracocentisis. (6) Diastolic CHF, acute on chronic Current Visit: Yes Status: Acute Likely exacerbated by AFib RVR BNP 109 CTA + Mild to moderate cardiomegaly. Trace pericardial effusion, improved from prior study. Moderate to large right pleural effusion, increased form prior study. TTE on 06/01/18 with LVEF 50% and no evidence of thrombus Lasix and Metoprolol being held due to hypotension. IVF discontinued. Echo ordered to evaluate for worsening diastolic heart failure in the setting of worsening pleural effusions. (7) Diabetes mellitus Current Visit: Yes Status: Chronic Chronic, on Metformin and Levemir at home. Continue sliding scale for glucose management. Qualifiers: Diabetes mellitus type: type 2 Diabetes mellitus custodial insulin use: unspecified custodial insulin use status Diabetes mellitus complication status : with unspecified complications Qualified Code(s): E11.8 - Type 2 diabetes mellitus with unspecified complications (8) Hypothyroid Current Visit: Yes Status: Chronic Chronic, on Levothyroxine 125 mcg at home. TSH 9.948 Continue oral Levothyroxine 125 mcg. Elevated TSH in the setting of acute illness, therefore will not adjust medication at this time. Qualifiers: Hypothyroidism type: unspecified Qualified Code(s): E03.9 - Hypothyroidism , unspecified (9) KYLEE (obstructive sleep apnea) Current Visit: Yes Status: Chronic Chronic, reported noncompliance with CPAP at home Continue CPAP PRN. (10) HLD (hyperlipidemia) Current Visit: Yes Status: Chronic Chronic, on Atorvastatin 20 at home. Continue Atorvastatin 20 daily. Qualifiers: Hyperlipidemia type: unspecified Qualified Code(s): E78.5 - Hyperlipidemia , unspecified (11) Acute kidney injury Current Visit: Yes Status: Resolved Likely due to hypoperfusion in the setting of severe hypotension and septic shock Cr 1.64 on admission, 1.22 today. (12) Cellulitis of left leg without foot Current Visit: Yes Status: Suspected Patient reports erythemetous scaly patch on left lower leg has been present for many years. Does not appear to be actively infected, although patient is on vancomycin and zosyn which provides adequate coverage. Area is marked, will monitor. (13) DVT prophylaxis Current Visit: Yes Status: Acute SCDS INR therapeutic at 2.6 History of Present Illness Consult date: 06/18/18 Requesting physician: Sade Qureshi Reason for consult: other (Septic Shock) Chief complaint: Septic Shock History of present illness: Natanael Doe is an 78 YOM with a history of AFib, PE on coumadin, Diastolic CHF with pacemaker, and recent hosptialization for bilateral pneumonia, who presented to the ED for near syncope and weakness. He was found by nursing at the SNF on the toilet without his oxygen after a near syncopal episode. The patient is on 3L of supplemental oxygen at home. Reportedly, the patient is non- compliant with his oxygen and CPAP. There was no known LOC or head trauma. He came in to the ED from the SNF hypotensive 80s/50s in AFib RVR with a rate in the 130s. He had a WBC count of 19.9, found to have and CHAS with a Cr of 1.64, and hematuria. Patient was diagnosed to be in septic shock with a possible source being HCAP. He was discharged on 05/30/18 for bilateral pneumonia and PE on coumadin. He was then discharged on 06/15/18 for acute diastolic CHF with pleural effusions. Patient reports having multiple syncopal episodes over the last month. According to family, he had a pacemaker placed at the end of April due to low HR and has been in and out of the hospital every since. Patient states that he has been very lightheaded and feels that his legs give out on him, resulting in multiple falls. He admits to SOB on exertion and during conversation. He denies chest pain, palpitations, fever, or chills. Past Med Surg Social Fam HX - Past Medical History Medical history: arthritis, atrial fibrillation, COPD, diabetes, GERD, hyperlipidemia, hypertension, thyroid disease, other Additional medical history: Hypothyroid. Sleep apnea Psychiatric history: no psych history - Past Surgical History Surgical History: cholecystectomy, knee replacement, orthopedic, other, pacemaker Additional surgical history: Gallbladder, bilateral knee replacement, Appendectomy, Right shoulder. - Social History Smoking Status: Former smoker Smokeless Tobacco Status: No Alcohol use: none Drug use: none - Family History Father Adopted: No Family Member Ethnicity: Non- Living Status: Hx Family Cardiac Disorders: No Hx Family Respiratory Disorders: Yes (Asbestosis) Hx Family Cancer: Yes (Lung CA) Hx Family GI Disorders: No Hx Family Endocrine Disorder: No Hx Family Neuromuscular Disorders: No Hx Family Neurologic Disorders: No Hx Family HEENT Disorders: No Hx Family Autoimmune Disorders: No Medications and Allergies Acetylcysteine [B-Jlbawz-h-Cysteine] 600 mg PO TIDAC 05/17/18 [History] Amitriptyline HCl 100 mg PO DAILY 05/17/18 [History] Aspirin [Ecotrin] 325 mg PO DAILY 05/17/18 [History] Atorvastatin Calcium [Lipitor] 20 mg PO HS 05/17/18 [History] FLUoxetine HCl [Prozac] 20 mg PO DAILY 05/17/18 [History] Finasteride [Proscar] 5 mg PO DAILY 05/17/18 [History] Fish Oil/Dha/Epa [Fish Oil 1,200 mg Fish Oil] 1 cap PO DAILY 05/17/18 [History] Fluticasone Propionate Nasal [Flonase] 1 spr NS DAILY 05/17/18 [History] Fluticasone/Salmeterol [Advair Hfa 230-21 Mcg Inhaler] 1 puff IH DAILY 05/17/18 [History] Levothyroxine [Synthroid] 125 mcg PO 0630 05/17/18 [History] Lisinopril [Zestril] 10 mg PO DAILY 05/17/18 [History] Loratadine [Claritin] 10 mg PO DAILY 05/17/18 [History] Lutein 20 mg PO DAILY 05/17/18 [History] Metformin HCl [Glucophage] 1,000 mg PO BID 05/17/18 [History] Metoprolol [Lopressor] 25 mg PO BID 05/17/18 [History] Pioglitazone [Actos] 15 mg PO DAILY 05/17/18 [History] SitaGLIPtin [Januvia] 100 mg PO DAILY 05/17/18 [History] Umeclidinium [place] [Incruse Ellipta] 62.5 mcg IH DAILY 05/17/18 [History] Vit A/Vit C/Vit E/Zinc/Copper [Preservision Areds Tablet] 1 tab PO DAILY [History] Warfarin [Coumadin] 6 mg PO [id number] 05/17/18 [History] Warfarin [Coumadin] 9 mg PO TH 05/17/18 [History] Ipratropium/Albuterol Neb [Duoneb] 3 ml IH Q6HR 06/01/18 [History] Polyethylene Glycol 3350 [MiraLAX] 17 gm PO DAILY PRN 06/01/18 [History] Furosemide [Lasix] 40 mg PO BIDDIURETIC tablet 06/15/18 [Rx] Gabapentin [Neurontin] 600 mg PO TID #15 tablet 06/15/18 [Rx] Insulin DETEMIR [Levemir] 20 unit SQ BID [id number] 06/15/18 [Rx] 3 Allergy/AdvReac Type Severity Reaction Status Date / Time No Known Allergies Allergy Verified 05/17/18 20:27 All Systems: The remainder of the systems were reviewed and are negative - Constitutional Constitutional: no chills, no fever(s) - Cardiovascular Cardiovascular: dyspnea on exertion, lightheadedness, syncope, no chest pain, no edema, no irregular heart rhythm, no leg edema, no palpitations, no rapid heart rate - Respiratory Respiratory: dyspnea on exertion, no cough - Gastrointestinal Gastrointestinal: no abdominal pain - Neurological Neurological: frequent falls, syncope - Hematologic/Lymphatic Hematologic/Lymphatic: no easy bleeding, no easy bruising Physical Examination Vital Signs: Vital Signs, Last 4 Hours Temp Pulse Resp BP Pulse Ox 06/18/18 07:30 19 92/70 97 06/18/18 07:00 145 20 92/70 96 06/18/18 06:00 129 16 103/67 99 06/18/18 05:00 133 15 91/67 99 06/18/18 04:00 98.5 F 120 16 103/82 100 06/18/18 03:48 16 98 Eyes: nonicteric ENT: oropharynx moist Neck: no JVD Effort: mildly labored Auscultation: left: wheezes, right: diminished breath sounds (in the lower lung dickson) Cardiovascular: irregular rhythm, other (irregular rate) Gastrointestinal: normoactive bowel sounds, soft, non-tender Integumentary: erythema (Erythemetous scaly region located on the left anterior lower leg) Extremities: no edema, pulses normal pupils equal and round mood appropriate Results - Laboratory Findings CBC and BMP: 06/18/18 04:15 06/18/18 04:15 ABG ABG pH 7.42 pH Units (7.32-7.45) 06/18/18 04:25 ABG pCO2 37 mmHg (35-45) 06/18/18 04:25 ABG pO2 93 mmHg (85-104) 06/18/18 04:25 ABG O2 Saturation 98 % (95-98) 06/18/18 04:25 PT/INR, D-dimer PT 28.8 Seconds (9.4-12.1) H 06/18/18 04:15 D-Dimer 3768 ng/mLFEU (0-500) H 06/17/18 15:30 Abnormal lab findings: Abnormal lab results WBC 19.0 K/mcL (4.3-11.1) H 06/18/18 04:15 RBC 3.83 M/mcL (4.19-5.50) L 06/18/18 04:15 Hgb 11.1 g/dL (12.9-16.9) L 06/18/18 04:15 Hct 35.4 % (37.5-50.1) L 06/18/18 04:15 MCHC 31.4 g/dL (31.6-35.5) L 06/18/18 04:15 RDW 17.3 % (11.5-14.5) H 06/18/18 04:15 Neutrophils # 15.6 K/mcL (1.6-8.9) H 06/18/18 04:15 PT 28.8 Seconds (9.4-12.1) H 06/18/18 04:15 APTT 38.3 Seconds (26.0-36.0) H D 06/17/18 15:30 D-Dimer 3768 ng/mLFEU (0-500) H 06/17/18 15:30 VBG pCO2 40 mmHg (41-51) L 06/17/18 21:21 VBG pO2 56 mmHg (25-50) H 06/17/18 21:21 Sodium 131 mEq/L (136-145) L 06/18/18 04:15 Est GFR (Non-Af Amer) 57 (> 60) L 06/18/18 04:15 Glucose 174 mg/dL (70-105) H 06/18/18 04:15 POC Glucose 170 mg/dL (70-99) H 06/18/18 05:42 Calcium 8.1 mg/dL (8.6-10.3) L 06/18/18 04:15 Total Bilirubin 1.4 mg/dL (0.3-1.0) H 06/18/18 04:15 AST 12 Units/L (13-39) L 06/18/18 04:15 B-Natriuretic Peptide 109 pg/mL (Less than 100) H 06/17/18 21:10 Serum Total Protein 5.7 g/dL (6.4-8.9) L 06/18/18 04:15 Albumin 3.0 g/dL (3.5-5.7) L 06/18/18 04:15 TSH 9.948 mcIU/mL (0.340-5.600) H 06/17/18 15:30 Urine Blood Moderate (Negative) H 06/17/18 16:55 Urine Bilirubin Small (Negative) H 06/17/18 16:55 Urine Microscopic RBC 50-100 per hpf (0-3) H 06/17/18 16:55 Ur Squamous Epith Cells Many per lpf (None-Few) H 06/17/18 16:55 - Microbiology Findings Microbiology Findings: Microbiology, Last 48 Hours 06/17/18 21:10 Blood Culture - Preliminary Peripheral Venipuncture Culture is incubating and being continuously monitored for growth. Final report to follow. - Clinical Findings Intake & Output: Intake & Output 06/17/18 06/17/18 06/18/18 15:59 23:59 07:59 Intake Total 251 / 1643 1000 / 1000 Output Total 900 / 1850 1999 Balance -649 / -207 -1000 / -1000 Weight 138.8 kg Consult Discharge Plan - Plan Referrals: Shayy Rodgers MD [Primary Care Provider] - <Christi Martinez - Last Filed: 06/18/18 16:31> Date of Encounter: 06/18/18 All Systems: The remainder of the systems were reviewed and are negative Physical Examination Vital Signs: Vital Signs, Last 4 Hours Temp Pulse Resp BP Pulse Ox 06/18/18 09:00 137 12 78/56 91 06/18/18 08:00 135 14 87/64 91 06/18/18 07:50 98.9 F 06/18/18 07:44 126 06/18/18 07:30 19 92/70 97 06/18/18 07:00 145 20 92/70 96 Results - Laboratory Findings CBC and BMP: 06/18/18 04:15 06/18/18 04:15 ABG ABG pH 7.42 pH Units (7.32-7.45) 06/18/18 04:25 ABG pCO2 37 mmHg (35-45) 06/18/18 04:25 ABG pO2 93 mmHg (85-104) 06/18/18 04:25 ABG O2 Saturation 98 % (95-98) 06/18/18 04:25 PT/INR, D-dimer PT 28.8 Seconds (9.4-12.1) H 06/18/18 04:15 D-Dimer 3768 ng/mLFEU (0-500) H 06/17/18 15:30 Abnormal lab findings: Abnormal lab results WBC 19.0 K/mcL (4.3-11.1) H 06/18/18 04:15 RBC 3.83 M/mcL (4.19-5.50) L 06/18/18 04:15 Hgb 11.1 g/dL (12.9-16.9) L 06/18/18 04:15 Hct 35.4 % (37.5-50.1) L 06/18/18 04:15 MCHC 31.4 g/dL (31.6-35.5) L 06/18/18 04:15 RDW 17.3 % (11.5-14.5) H 06/18/18 04:15 Neutrophils # 15.6 K/mcL (1.6-8.9) H 06/18/18 04:15 PT 28.8 Seconds (9.4-12.1) H 06/18/18 04:15 APTT 38.3 Seconds (26.0-36.0) H D 06/17/18 15:30 D-Dimer 3768 ng/mLFEU (0-500) H 06/17/18 15:30 VBG pCO2 40 mmHg (41-51) L 06/17/18 21:21 VBG pO2 56 mmHg (25-50) H 06/17/18 21:21 Sodium 131 mEq/L (136-145) L 06/18/18 04:15 Est GFR (Non-Af Amer) 57 (> 60) L 06/18/18 04:15 Glucose 174 mg/dL (70-105) H 06/18/18 04:15 POC Glucose 170 mg/dL (70-99) H 06/18/18 05:42 Calcium 8.1 mg/dL (8.6-10.3) L 06/18/18 04:15 Total Bilirubin 1.4 mg/dL (0.3-1.0) H 06/18/18 04:15 AST 12 Units/L (13-39) L 06/18/18 04:15 B-Natriuretic Peptide 109 pg/mL (Less than 100) H 06/17/18 21:10 Serum Total Protein 5.7 g/dL (6.4-8.9) L 06/18/18 04:15 Albumin 3.0 g/dL (3.5-5.7) L 06/18/18 04:15 TSH 9.948 mcIU/mL (0.340-5.600) H 06/17/18 15:30 Urine Blood Moderate (Negative) H 06/17/18 16:55 Urine Bilirubin Small (Negative) H 06/17/18 16:55 Urine Microscopic RBC 50-100 per hpf (0-3) H 06/17/18 16:55 Ur Squamous Epith Cells Many per lpf (None-Few) H 06/17/18 16:55 - Microbiology Findings Microbiology Findings: Microbiology, Last 48 Hours 06/17/18 21:10 Blood Culture - Preliminary Peripheral Venipuncture Culture is incubating and being continuously monitored for growth. Final report to follow. - Clinical Findings Intake & Output: Intake & Output 06/17/18 06/18/18 06/18/18 23:59 07:59 15:59 Intake Total 251 / 1643 1100 / 1100 Output Total 900 / 1850 2500 / 2500 Balance -649 / -207 -1400 / -1400 Weight 138.8 kg - Attending Attestation I examined this patient and my medical decision-making was reviewed with the Resident Physician. I agree with the documented findings, disposition and treatment plan as described except to the extent set forth below. Patient seen and examined. Labs, radiology, chart personally reviewed. Agree with resident's history and physical, assessment, plan with following comments: INSOLE BUFFER: Patient follows commands, Pulmonary: Acceptable oxygenation and ventilation. Patient is stable on CPAP and requiring minimum FiO2.. My suspicion is low for healthcare acquired pneumonia and as soon as cultures comes back plan is to make his antibiotics to be weaned off. Cardiovascular: I suspect his main symptoms follow-up from underlying heart disease and suspect possible diastolic heart failure which acute on chronic. Wean off his pressors and rate control. Blood pressure has improved with the rate control GI: Nutrition per dietary and GI prophylaxis per routine Heme: DVT prophylaxis per routine ID: Continue antibiotics and plan to de-escalation Renal; urine out put and renal funtion reviewed Endorcine: blood glucose is monitored Lines: all lines checked and no evidence of infections Skin: skin care to prevent pressure ulcers per nursing routine care
[2018-06-18] MEDS ORDERED: Aminoglycoside Consult 1 EACH MC ONE (07:54)
[2018-06-18] MEDS: Piperacillin/Tazobactam 3.375 GM in 0.9 % Sodium Chloride Mini Bag 100 ML IVPB SCH ×3 (08:43→23:01)
[2018-06-18] MEDS: Pantoprazole 40 MG VIAL IVP SCH (08:43)
[2018-06-18] MEDS: Finasteride 5 MG TABLET PO SCH (08:44)
[2018-06-18] MEDS: Clotrimazole 1% CRM 15 GM TUBE TP SCH ×2 (08:44→21:19)
[2018-06-18] MEDS ORDERED: Amiodarone Premix 150 MG/100 ML BAG IVPB ONE (10:54)
[2018-06-18] MEDS ORDERED: Amiodarone Premix 360 MG/200 ML BAG IVC ONE (10:54)
[2018-06-18] MEDS ORDERED: Acetylcysteine 10% 2 ML INHSOL IH SCH (12:00)
[2018-06-18 14:39] LABS: Adenovirus Not Detected (Not Detect); Bordetella Pertussis Not Detected (Not Detect); Chlamydophila pneumoniae Not Detected (Not Detect); Coronavirus 229E Not Detected (Not Detect); Coronavirus HKU1 Not Detected (Not Detect); Coronavirus NL63 Not Detected (Not Detect); Coronavirus OC43 Not Detected (Not Detect); Human Metapneumovirus Not Detected (Not Detect); Human Rhinovirus/Enterovirus DETECTED (Not Detect); Influenza A Subtype 2009 H1 Not Detected (Not Detect); Influenza A Untypeable Not Detected (Not Detect); Influenza B Not Detected (Not Detect); Mycoplasma pneumoniae Not Detected (Not Detect); Parainfluenza Virus 1 Not Detected (Not Detect); Parainfluenza Virus 2 Not Detected (Not Detect); Parainfluenza Virus 3 Not Detected (Not Detect); Parainfluenza Virus 4 Not Detected (Not Detect); Respiratory Syncytial Virus Not Detected (Not Detect)
[2018-06-18] MEDS: Amiodarone Premix 360 MG/200 ML BAG IVC SCH (15:40)
[2018-06-18] MEDS: Acetylcysteine 10% 2 ML INHSOL IH SCH ×2 (16:22→23:18)
--- NOTE | 2018-06-18 17:25 | Electrocardiograph Report ---
[address] [address] Test Date: 2018-06-17 Pat Name: Natanael Doe Department: 103 Room: 09 Gender: M [employer]: EKP : [id number] Requested By: Bryce Najera Order Number: [id number] Reading MD: Carolyn Go Measurements Intervals Crum Rate: 134 P: IA: 0 QRS: 100 QRSD: 93 T: -33 QT: 283 QTc: 362 Interpretive Statements ATRIAL FIBRILLATION WITH RAPID VENTRICULAR RESPONSE BORDERLINE RIGHT AXIS DEVIATION [QRS AXIS > 90] ST DEVIATION AND MODERATE T-WAVE ABNORMALITY, CONSIDER ANTEROLATERAL ISCHEMIA [- 0.1+ mV T WAVE IN V3-V6] LOW VOLTAGE EXTREMITY LEADS Electronically Signed On 06-18-2018 17:24:11 EDT by Carolyn Go
[2018-06-18] MEDS ORDERED: Levofloxacin 750 MG/150 ML 750 MG/150 ML BAG IVPB SCH (18:00)
[2018-06-18] MEDS: Perflutren Lipid Microsphere 1.3 ML in 0.9 % Sodium Chloride 8.7 ML IVP ONE ×2 (19:56→22:28)
[2018-06-19] MEDS: Phenylephrine 50 MG in D5% in Water 250 ML IVC SCH (00:07)
[2018-06-19] MEDS: Ipratropium/Albuterol Neb 3 ML IH SCH ×6 (03:35→23:30)
[2018-06-19 04:18] LABS: Basophils % 0.1 %; Eosinophils # 0.4 K/mcL (0.0-0.6); Eosinophils % 3.1 %; Hematocrit 33.7 % (37.5-50.1); Hemoglobin 10.7 g/dL (12.9-16.9); Immature Granulocytes % 1.5 % (0-4); Immature Platelets 4.8 % (1.1-6.1); Lymphocytes # 1.1 K/mcL (0.6-4.6); Lymphocytes % 9.2 %; Mean Corpuscular HGB Conc 31.8 g/dL (31.6-35.5); Mean Corpuscular Hemoglobin 29.2 pg (28.0-33.3); Mean Corpuscular Volume 92.1 fL (83.0-100.0); Mean Platelet Volume 10.7 fL (9.4-12.4); Monocytes # 0.7 K/mcL (0.0-1.3); Neutrophils # 9.7 K/mcL (1.6-8.9); Platelet Count 118 K/mcL (140-400); Red Blood Count 3.66 M/mcL (4.19-5.50); Red Cell Distribution Width 17.4 % (11.5-14.5); Segmented Neutrophils % 80.1 %
[2018-06-19 04:37] LABS: INR 2.2; Prothrombin Time 24.9 Seconds (9.4-12.1)
[2018-06-19] MEDS: Amiodarone Premix 360 MG/200 ML BAG IVC SCH (04:53)
[2018-06-19] MEDS: Insulin LISPRO 300 UNITS/3 ML VIAL SQ SCH ×4 (05:11→21:18)
[2018-06-19 05:20] LABS: BUN/Creatinine Ratio 12 (6-26); Blood Urea Nitrogen 13 mg/dL (8-23); Calcium 8.1 mg/dL (8.6-10.3); Carbon Dioxide 21 mEq/L (23-29); Chloride 101 mEq/L (98-107); Glucose 177 mg/dL (70-105); Osmolality,Calculated 278 (280-300); Potassium 3.6 mEq/L (3.5-5.1); Sodium 132 mEq/L (136-145); eGFR For Non-African Americans > 60 (> 60)
[2018-06-19] MEDS: Acetylcysteine 10% 2 ML INHSOL IH SCH ×3 (07:23→23:30)
[2018-06-19] MEDS: Piperacillin/Tazobactam 3.375 GM in 0.9 % Sodium Chloride Mini Bag 100 ML IVPB SCH (07:58)
[2018-06-19] MEDS: Finasteride 5 MG TABLET PO SCH ×2 (07:58→10:07)
[2018-06-19] MEDS ORDERED: Dextrose Gel 15 GM/37.5 ML TUBE PO PRN ×2 (08:38)
[2018-06-19] MEDS ORDERED: D5% in Water 1,000 ML IVC PRN (08:38)
[2018-06-19] MEDS ORDERED: *HR* Dextrose 50 % in Water (Syg) 50 ML SYRINGE IVP PRN (08:38)
[2018-06-19] MEDS ORDERED: Naloxone 0.4 MG/ML INJ IVP PRN (08:38)
[2018-06-19] MEDS ORDERED: Pantoprazole 40 MG VIAL IVP SCH ×2 (09:00)
--- NOTE | 2018-06-19 09:26 | Pulmonology Progress Note ---
<AndresAlba Sejal - Last Filed: 06/19/18 09:36> Date of Encounter: 06/19/18 Time of Encounter: 09:25 Assessment and Plan (1) HAP (hospital-acquired pneumonia) Current Visit: Yes Status: Acute Multiple hospitalizations recently - Discharged on 05/30 for bilateral pneumonia and PE, Discharged on 06/15 for acute CHF exacerbation with pleural effusions. Blood PCR + for Enter/Rhinovirus. Urine antigens negative for Legionella and Strep. Sputum cx still pending. CTA + for RLL atelectasis versus consolidation Lactic Acid 1.8 WBC down to 12.1 from 21.3 on admission Patient is afebrile. Currently on 3L NC at 95%. Still complaining of SOB. Denies chest pain. Vancomycin, Zosyn, Levaquin on day 2 of 8, will monitor QT. So far cultures + for Entero/Rhinovirus, will deescalate antibiotics if sputum cx negative. Continue Duonebs every 4 hours as needed. Continue CPAP/BiPAP PRN. (2) Septic shock Current Visit: Yes Status: Acute Likely secondary to HCAP with postive PCR for Entero/Rhinovirus, concern for superimposed infection. CHF may also be contributing. Central line removed this morning. Blood PCR + for Enter/Rhinovirus. Urine antigens negative for legionella and strep. Sputum cultures pending. Patient's BP and HR improved overnight. Afebrile. Continue antibiotics, will deescalate pending sputum cultures. (3) Acute respiratory failure with hypoxia Current Visit: Yes Status: Acute Likely multifactorial, suspect large right sided pleural effusion, acute CHF, and HCAP to be contributing. CTA + for moderate to large right sided pleural effusion increased from prior BNP 109 Blood PCR + for Entero/Rhinovirus, urine antigens negative, sputum cultures pending ABG within normal limits Patient complaining of SOB. 95% 3L NC. CPAP/BiPAP PRN. Duonebs every 4 hours as needed (4) Atrial fibrillation with RVR Current Visit: Yes Status: Acute Etiology unknown. Possibly secondary to severe hypotension SBP 50s to 70s on admission. Was started on esmolol in the ED, due to hypotension was switched to phenylephrine, which was discontinued yesterday. INR 2.2 today Amiodarone drip for rhythm control yesterday. Patient admits to occasional palpitations denies chest pain. Complaining of vague abdominal pain today. Amiodarone switched to home Metoprolol 25 BID on tranfer, may require higher dose if tolerated (5) Pleural effusion Current Visit: Yes Status: Acute Likely related to diastolic heart failure, also consider patient's history of PE and HCAP. CTA + moderate to large right sided pleural effusion. Negative for PE. Entero/Rhinovirus +. Urine antigen negative. Sputum cultures pending. BNP 109 INR 2.2 today Patient admits to SOB. Denies chest pain. Hold coumadin and recheck INR. Following peripherally for possible therapeutic/ diagnostic thoracocentisis. (6) Diastolic CHF, acute on chronic Current Visit: Yes Status: Acute Likely exacerbated by AFib RVR BNP 109 CTA + Mild to moderate cardiomegaly. Trace pericardial effusion, improved from prior study. Moderate to large right pleural effusion, increased form prior study. TTE on 06/01/18 with LVEF 50% and no evidence of thrombus Metoprolol started upon transfer. Echo ordered to evaluate for worsening diastolic heart failure in the setting of worsening pleural effusions. (7) Diabetes mellitus Current Visit: Yes Status: Chronic Chronic, on Metformin and Levemir at home. Continue sliding scale for glucose management. 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 TSH 9.948 Continue oral Levothyroxine 125 mcg. Elevated TSH in the setting of acute illness, therefore will not adjust medication at this time. Qualifiers: Hypothyroidism type: unspecified Qualified Code(s): E03.9 - Hypothyroidism , unspecified (9) KYLEE (obstructive sleep apnea) Current Visit: Yes Status: Chronic Chronic, reported noncompliance with CPAP at home Continue CPAP PRN. (10) HLD (hyperlipidemia) Current Visit: Yes Status: Chronic Chronic, on Atorvastatin 20 at home. Continue Atorvastatin 20 daily. Qualifiers: Hyperlipidemia type: unspecified Qualified Code(s): E78.5 - Hyperlipidemia , unspecified (11) Acute kidney injury Current Visit: Yes Status: Resolved Likely due to hypoperfusion in the setting of severe hypotension and septic shock Cr 1.64 on admission, now1.22 (12) Cellulitis of left leg without foot Current Visit: Yes Status: Suspected Patient reports erythemetous scaly patch on left lower leg has been present for many years. Does not appear to be actively infected, although patient is on vancomycin and zosyn which provides adequate coverage. Area is marked, will monitor. (13) DVT prophylaxis Current Visit: Yes Status: Acute SCDS INR therapeutic at 2.2 Subjective Principal diagnosis: HCAP Interval history: No major events overnight. Patient responded well to Amiodarone. WBC is downtrending. Central line and [place] catheter removed this morning. Patient was able to ambulate to use the bedside comode. Decreased appetite and complaint today of vague abdominal pain. Patient stable for transfer. Signed out to Dr. Demarco, Admitting Hospitalist. Objective PUL Vital signs: Last Vital Signs Temp 97.4 F L 06/19/18 07:00 Pulse 102 06/19/18 08:00 Resp 16 06/19/18 08:00 BP 127/71 06/19/18 08:00 Pulse Ox 95 06/19/18 08:00 General appearance: no acute distress Eyes: nonicteric ENT: oropharynx moist Neck: no JVD Effort: mildly labored Auscultation: left: clear, right: diminished breath sounds Cardiovascular: irregular rhythm Gastrointestinal: normoactive bowel sounds, soft, tender (Tender over the epigastic region and midline lower abdominal regions. ) Integumentary: erythema (Chronic, unchanged, left lower leg erythemetous scaly lesion. Small erythemetous irregular area on the dorsal aspect of the right foot. ) Extremities: no cyanosis, no edema normal mental status, pupils equal and round mood appropriate Results - Laboratory Findings CBC and BMP: 06/19/18 Unknown 06/19/18 03:50 ABG ABG pH 7.42 pH Units (7.32-7.45) 06/18/18 04:25 ABG pCO2 37 mmHg (35-45) 06/18/18 04:25 ABG pO2 93 mmHg (85-104) 06/18/18 04:25 ABG O2 Saturation 98 % (95-98) 06/18/18 04:25 PT/INR, D-dimer PT 24.9 Seconds (9.4-12.1) H 06/19/18 03:57 D-Dimer 3768 ng/mLFEU (0-500) H 06/17/18 15:30 Abnormal lab findings: Abnormal lab results WBC 12.1 K/mcL (4.3-11.1) H 06/19/18 Unknown RBC 3.66 M/mcL (4.19-5.50) L 06/19/18 Unknown Hgb 10.7 g/dL (12.9-16.9) L 06/19/18 Unknown Hct 33.7 % (37.5-50.1) L 06/19/18 Unknown RDW 17.4 % (11.5-14.5) H 06/19/18 Unknown Plt Count 118 K/mcL (140-400) L 06/19/18 Unknown Neutrophils # 9.7 K/mcL (1.6-8.9) H 06/19/18 Unknown PT 24.9 Seconds (9.4-12.1) H 06/19/18 03:57 APTT 38.3 Seconds (26.0-36.0) H D 06/17/18 15:30 D-Dimer 3768 ng/mLFEU (0-500) H 06/17/18 15:30 VBG pCO2 40 mmHg (41-51) L 06/17/18 21:21 VBG pO2 56 mmHg (25-50) H 06/17/18 21:21 Sodium 132 mEq/L (136-145) L 06/19/18 03:50 Carbon Dioxide 21 mEq/L (23-29) L 06/19/18 03:50 Glucose 177 mg/dL (70-105) H 06/19/18 03:50 POC Glucose 148 mg/dL (70-99) H 06/18/18 23:14 Calculated Osmolality 278 (280-300) L 06/19/18 03:50 Calcium 8.1 mg/dL (8.6-10.3) L 06/19/18 03:50 Total Bilirubin 1.4 mg/dL (0.3-1.0) H 06/18/18 04:15 AST 12 Units/L (13-39) L 06/18/18 04:15 B-Natriuretic Peptide 109 pg/mL (Less than 100) H 06/17/18 21:10 Serum Total Protein 5.7 g/dL (6.4-8.9) L 06/18/18 04:15 Albumin 3.0 g/dL (3.5-5.7) L 06/18/18 04:15 TSH 9.948 mcIU/mL (0.340-5.600) H 06/17/18 15:30 Urine Blood Moderate (Negative) H 06/17/18 16:55 Urine Bilirubin Small (Negative) H 06/17/18 16:55 Urine Microscopic RBC 50-100 per hpf (0-3) H 06/17/18 16:55 Ur Squamous Epith Cells Many per lpf (None-Few) H 06/17/18 16:55 Entero/Rhino (PCR) DETECTED (Not Detect) A 06/18/18 13:15 - Microbiology Findings Microbiology Findings: Microbiology, Last 48 Hours 06/18/18 11:30 Sputum Culture - Preliminary Sputum 06/17/18 21:10 Blood Culture - Preliminary Peripheral Venipuncture Culture is incubating and being continuously monitored for growth. Final report to follow. - Clinical Findings Intake & Output: Intake & Output 06/18/18 06/19/18 06/19/18 23:59 07:59 15:59 Intake Total 300 / 300 350 / 350 Output Total 475 / 475 725 / 725 Balance -175 / -175 -375 / -375 Weight 136.9 kg Consult Discharge Plan - Plan Referrals: Shayy Rodgers MD [Primary Care Provider] - <Christi Martinez - Last Filed: 06/19/18 13:43> Date of Encounter: 06/19/18 Objective PUL Vital signs: Last Vital Signs Temp 98.2 F 06/19/18 11:05 Pulse 106 06/19/18 11:05 Resp 17 06/19/18 11:05 BP 100/76 06/19/18 11:05 Pulse Ox 100 06/19/18 11:05 Results - Laboratory Findings CBC and BMP: 06/19/18 Unknown 06/19/18 03:50 ABG ABG pH 7.42 pH Units (7.32-7.45) 06/18/18 04:25 ABG pCO2 37 mmHg (35-45) 06/18/18 04:25 ABG pO2 93 mmHg (85-104) 06/18/18 04:25 ABG O2 Saturation 98 % (95-98) 06/18/18 04:25 PT/INR, D-dimer PT 24.9 Seconds (9.4-12.1) H 06/19/18 03:57 D-Dimer 3768 ng/mLFEU (0-500) H 06/17/18 15:30 Abnormal lab findings: Abnormal lab results WBC 12.1 K/mcL (4.3-11.1) H 06/19/18 Unknown RBC 3.66 M/mcL (4.19-5.50) L 06/19/18 Unknown Hgb 10.7 g/dL (12.9-16.9) L 06/19/18 Unknown Hct 33.7 % (37.5-50.1) L 06/19/18 Unknown RDW 17.4 % (11.5-14.5) H 06/19/18 Unknown Plt Count 118 K/mcL (140-400) L 06/19/18 Unknown Neutrophils # 9.7 K/mcL (1.6-8.9) H 06/19/18 Unknown PT 24.9 Seconds (9.4-12.1) H 06/19/18 03:57 APTT 38.3 Seconds (26.0-36.0) H D 06/17/18 15:30 D-Dimer 3768 ng/mLFEU (0-500) H 06/17/18 15:30 VBG pCO2 40 mmHg (41-51) L 06/17/18 21:21 VBG pO2 56 mmHg (25-50) H 06/17/18 21:21 Sodium 132 mEq/L (136-145) L 06/19/18 03:50 Carbon Dioxide 21 mEq/L (23-29) L 06/19/18 03:50 Glucose 177 mg/dL (70-105) H 06/19/18 03:50 POC Glucose 148 mg/dL (70-99) H 06/18/18 23:14 Calculated Osmolality 278 (280-300) L 06/19/18 03:50 Calcium 8.1 mg/dL (8.6-10.3) L 06/19/18 03:50 Total Bilirubin 1.4 mg/dL (0.3-1.0) H 06/18/18 04:15 AST 12 Units/L (13-39) L 06/18/18 04:15 B-Natriuretic Peptide 109 pg/mL (Less than 100) H 06/17/18 21:10 Serum Total Protein 5.7 g/dL (6.4-8.9) L 06/18/18 04:15 Albumin 3.0 g/dL (3.5-5.7) L 06/18/18 04:15 Procalcitonin 0.22 ng/mL (<=0.07) H 06/18/18 13:15 TSH 9.948 mcIU/mL (0.340-5.600) H 06/17/18 15:30 Urine Blood Moderate (Negative) H 06/17/18 16:55 Urine Bilirubin Small (Negative) H 06/17/18 16:55 Urine Microscopic RBC 50-100 per hpf (0-3) H 06/17/18 16:55 Ur Squamous Epith Cells Many per lpf (None-Few) H 06/17/18 16:55 Entero/Rhino (PCR) DETECTED (Not Detect) A 06/18/18 13:15 - Microbiology Findings Microbiology Findings: Microbiology, Last 48 Hours 06/18/18 11:30 Sputum Culture - Preliminary Sputum 06/17/18 21:10 Blood Culture - Preliminary Peripheral Venipuncture Culture is incubating and being continuously monitored for growth. Final report to follow. - Clinical Findings Intake & Output: Intake & Output 06/18/18 06/19/18 06/19/18 23:59 07:59 15:59 Intake Total 300 / 300 350 / 350 Output Total 475 / 475 725 / 725 75 / 75 Balance -175 / -175 -375 / -375 -75 / -75 Weight 136.9 kg - Attending Attestation I examined this patient and my medical decision-making was reviewed with the Resident Physician. I agree with the documented findings, disposition and treatment plan as described except to the extent set forth below. Patient seen and examined. Labs, radiology, chart personally reviewed. 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 For possible diagnostic and therapeutic thoracentesis Cardiovascular: Transition to oral and treat with his home medication GI: Nutrition per dietary and GI prophylaxis per routine Heme: DVT prophylaxis per routine ID: Continue antibiotics and plan to de-escalation Renal; urine out put and renal funtion reviewed Endorcine: blood glucose is monitored Lines: all lines checked and no evidence of infections Skin: skin care to prevent pressure ulcers per nursing routine care Patient remained hemodynamically stable and transferred to the floor.
[2018-06-19] MEDS: Clotrimazole 1% CRM 15 GM TUBE TP SCH ×2 (10:07→21:08)
[2018-06-19] MEDS: Ondansetron 4 MG/2 ML VIAL IVP PRN ×2 (10:14→17:42)
[2018-06-19] MEDS ORDERED: Insulin LISPRO 300 UNITS/3 ML VIAL SQ SCH (12:00)
[2018-06-19] MEDS ORDERED: Piperacillin/Tazobactam 3.375 GM in 0.9 % Sodium Chloride Mini Bag 100 ML IVPB SCH (16:00)
[2018-06-19] MEDS: Levofloxacin 750 MG/150 ML 750 MG/150 ML BAG IVPB SCH (17:23)
[2018-06-20] MEDS: Acetaminophen 325 MG TABLET PO PRN ×2 (00:40→12:43)
[2018-06-20] MEDS: Ondansetron 4 MG/2 ML VIAL IVP PRN (00:40)
[2018-06-20] MEDS: Ipratropium/Albuterol Neb 3 ML IH SCH ×6 (04:27→23:44)
--- NOTE | 2018-06-20 06:48 | Pulmonology Progress Note ---
<JuanChristi M - Last Filed: 06/20/18 15:27> Date of Encounter: 06/20/18 Objective PUL Vital signs: Last Vital Signs Temp 98.5 F 06/20/18 12:00 Pulse 99 06/20/18 12:00 Resp 18 06/20/18 12:00 BP 99/58 06/20/18 12:00 Pulse Ox 96 06/20/18 12:00 Results - Laboratory Findings CBC and BMP: 06/20/18 07:22 06/20/18 07:22 ABG ABG pH 7.42 pH Units (7.32-7.45) 06/18/18 04:25 ABG pCO2 37 mmHg (35-45) 06/18/18 04:25 ABG pO2 93 mmHg (85-104) 06/18/18 04:25 ABG O2 Saturation 98 % (95-98) 06/18/18 04:25 PT/INR, D-dimer PT 22.8 Seconds (9.4-12.1) H 06/20/18 07:22 D-Dimer 3768 ng/mLFEU (0-500) H 06/17/18 15:30 Abnormal lab findings: Abnormal lab results WBC 12.0 K/mcL (4.3-11.1) H 06/20/18 07:22 RBC 3.85 M/mcL (4.19-5.50) L 06/20/18 07:22 Hgb 11.6 g/dL (12.9-16.9) L 06/20/18 07:22 Hct 34.6 % (37.5-50.1) L 06/20/18 07:22 RDW 17.3 % (11.5-14.5) H 06/20/18 07:22 Neutrophils # 10.1 K/mcL (1.6-8.9) H 06/20/18 07:22 PT 22.8 Seconds (9.4-12.1) H 06/20/18 07:22 APTT 38.3 Seconds (26.0-36.0) H D 06/17/18 15:30 D-Dimer 3768 ng/mLFEU (0-500) H 06/17/18 15:30 VBG pCO2 40 mmHg (41-51) L 06/17/18 21:21 VBG pO2 56 mmHg (25-50) H 06/17/18 21:21 Sodium 131 mEq/L (136-145) L 06/20/18 07:22 Carbon Dioxide 20 mEq/L (23-29) L 06/20/18 07:22 Glucose 218 mg/dL (70-105) H 06/20/18 07:22 POC Glucose 153 mg/dL (70-99) H 06/19/18 20:34 Calculated Osmolality 278 (280-300) L 06/20/18 07:22 Calcium 8.3 mg/dL (8.6-10.3) L 06/20/18 07:22 B-Natriuretic Peptide 109 pg/mL (Less than 100) H 06/17/18 21:10 Albumin 3.2 g/dL (3.5-5.7) L 06/20/18 12:33 Albumin/Globulin Ratio 1.0 (1.1-2.2) L 06/20/18 12:33 Procalcitonin 0.22 ng/mL (<=0.07) H 06/18/18 13:15 TSH 9.948 mcIU/mL (0.340-5.600) H 06/17/18 15:30 Urine Blood Moderate (Negative) H 06/17/18 16:55 Urine Bilirubin Small (Negative) H 06/17/18 16:55 Urine Microscopic RBC 50-100 per hpf (0-3) H 06/17/18 16:55 Ur Squamous Epith Cells Many per lpf (None-Few) H 06/17/18 16:55 Pleural RBC 0.313 M/mcL (0.000-0.002) H 06/20/18 11:40 Pleural Tot Nuc Cell 1321 TNC/mcL (0-1000) H 06/20/18 11:40 Entero/Rhino (PCR) DETECTED (Not Detect) A 06/18/18 13:15 - Microbiology Findings Microbiology Findings: Microbiology, Last 48 Hours 06/18/18 11:30 Sputum Culture - Final Sputum 06/20/18 11:40 Body Fluid Culture - Preliminary Pleural Fluid - Clinical Findings Intake & Output: Intake & Output 06/19/18 06/20/18 06/20/18 23:59 07:59 15:59 Intake Total 150 / 150 100 / 100 240 / 240 Output Total 0 / 0 600 / 600 0 / 0 Balance 150 / 150 -500 / -500 240 / 240 Weight 142.7 kg Consult Discharge Plan - Plan Referrals: Shayy Rodgers MD [Primary Care Provider] - - Attending Attestation I examined this patient and my medical decision-making was reviewed with the Resident Physician. I agree with the documented findings, disposition and treatment plan as described except to the extent set forth below. Patient seen and examined. Labs, radiology, chart personally reviewed. Agree with resident's history and physical, assessment, plan with following comments: PRIVACY OFFICER: Patient follows commands, Pulmonary: Acceptable oxygenation and ventilation and patient agreed to have diagnostic and therapeutic thoracentesis Cardiovascular: After the procedure anticoagulation can be resumed <Alba Campos - Last Filed: 06/21/18 09:10> Date of Encounter: 06/20/18 Time of Encounter: 17:03 Assessment and Plan (1) HAP (hospital-acquired pneumonia) Current Visit: Yes Status: Acute Likely result of recent hospitalizations - Discharged on 05/30 for bilateral pneumonia and PE, Discharged on 06/15 for acute CHF exacerbation with pleural effusions. Blood PCR + for Enter/Rhinovirus. Urine antigens negative for Legionella and Strep. Sputum cx negative. CTA + for RLL atelectasis versus consolidation Lactic Acid 1.8 WBC down to 12 (21.3 on admission) Patient is afebrile. Currently on 3L NC at 94%. SOC improved s/p thora. Denies chest pain. On Levaquin day 3 of 8. Blood cultures + for Entero/Rhinovirus, sputum cx negative, urine antigens negative. Continue Duonebs every 4 hours as needed. Continue CPAP/BiPAP PRN. (2) Septic shock Current Visit: Yes Status: Acute Likely multifactorial, due to HCAP and CHF. S/p vassopressors. Central removed, site covered with dressing. Patient's BP and HR stable. Afebrile. Continue levaquin. Monitor VS. (3) Acute respiratory failure with hypoxia Current Visit: Yes Status: Acute Likely multifactorial, due to large right sided pleural effusion, acute CHF, and HCAP. CTA + for moderate to large right sided pleural effusion increased from prior BNP 109 Blood PCR + for Entero/Rhinovirus, urine antigens negative, sputum cultures negative. ABG within normal limits SOB improved s/p thora. 94% 3L NC. CPAP/BiPAP PRN. Duonebs every 4 hours as needed (4) Atrial fibrillation with RVR Current Visit: Yes Status: Acute Etiology unknown. Possibly secondary to severe hypotension SBP 50s to 70s on admission. Amiodarone drip dcd, and patient's home metoprolol was resumed. INR 2 today Admits to some SOB, improved s/p thora. Denies chest pain or palpitations. May increase Metoprolol as needed to control BP/HR. (5) Pleural effusion Current Visit: Yes Status: Acute Likely related to diastolic heart failure, also consider patient's history of PE and HCAP. CTA + moderate to large right sided pleural effusion. Negative for PE. Entero/Rhinovirus +. Urine antigen negative. Sputum cultures negative. BNP 109 INR 2 today Thoracentesis performed today, 1L fluid removed, specimen sent to lab. CXR after thora showed no signs of pneumo, small b/l pleural effusions. Patient admits to improved SOB s/p thora. Denies chest pain. Pleural fluid analysis pending. May restart coumadin. Continue to monitor respiratory status. (6) Diastolic CHF, acute on chronic Current Visit: Yes Status: Acute Likely exacerbated by AFib RVR BNP 109 CTA + Mild to moderate cardiomegaly. Trace pericardial effusion, improved from prior study. Moderate to large right pleural effusion, increased form prior study. TTE on 06/01/18 with LVEF 50% and no evidence of thrombus ECHO 06/18/18 suboptimal due to body habitus, poor positioning, and elevated HR. LV systolic funstion low normal - mildly reduced. Intermediate diastolic function. Mild tricuspid/pulmonic regurgitation. No evidence of pulmonary HTN. Continue Metoprolol. Continue to hold Lasix and Lisinopril until BP will tolerate resuming. (7) Diabetes mellitus Current Visit: Yes Status: Chronic Chronic, on Metformin and Levemir at home. Continue sliding scale for glucose management. 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 TSH 9.948 Continue oral Levothyroxine 125 mcg. Elevated TSH in the setting of acute illness, therefore will not adjust medication at this time. Qualifiers: Hypothyroidism type: unspecified Qualified Code(s): E03.9 - Hypothyroidism , unspecified (9) KYLEE (obstructive sleep apnea) Current Visit: Yes Status: Chronic Chronic, reported noncompliance with CPAP at home Continue CPAP PRN. (10) HLD (hyperlipidemia) Current Visit: Yes Status: Chronic Chronic, on Atorvastatin 20 at home. Continue Atorvastatin 20 daily. Qualifiers: Hyperlipidemia type: unspecified Qualified Code(s): E78.5 - Hyperlipidemia , unspecified (11) Acute kidney injury Current Visit: Yes Status: Resolved Likely due to hypoperfusion in the setting of severe hypotension and septic shock Cr 1.64 on admission, now1.22 (12) Cellulitis of left leg without foot Current Visit: Yes Status: Suspected Patient reports erythemetous scaly patch on left lower leg has been present for many years. Does not appear to be actively infected, although patient is on vancomycin and zosyn which provides adequate coverage. Area is marked, will monitor. (13) DVT prophylaxis Current Visit: Yes Status: Acute SCDS INR therapeutic at 2.2 Subjective Principal diagnosis: HCAP Interval history: No major events overnight. Patient complaining of some SOB and upper abdominal pain, less since having thoracentesis. Denies chest pain, palpitations, nausea, vomiting. Appetite has improved. Objective PUL Vital signs: Last Vital Signs Temp 97.9 F 06/20/18 06:24 Pulse 120 06/20/18 06:24 Resp 21 06/20/18 06:24 BP 113/66 06/20/18 06:24 Pulse Ox 94 06/20/18 06:24 General appearance: no acute distress Eyes: nonicteric ENT: oropharynx moist Effort: mildly labored Auscultation: bilateral: wheezes (more on the right than the left. Improved from yesterday. ) Cardiovascular: irregular rhythm Gastrointestinal: soft, tender (in the midepigastric region) Extremities: no cyanosis, no edema normal mental status mood appropriate Results - Laboratory Findings CBC and BMP: 06/20/18 07:22 06/20/18 07:22 ABG ABG pH 7.42 pH Units (7.32-7.45) 06/18/18 04:25 ABG pCO2 37 mmHg (35-45) 06/18/18 04:25 ABG pO2 93 mmHg (85-104) 06/18/18 04:25 ABG O2 Saturation 98 % (95-98) 06/18/18 04:25 PT/INR, D-dimer PT 24.9 Seconds (9.4-12.1) H 06/19/18 03:57 D-Dimer 3768 ng/mLFEU (0-500) H 06/17/18 15:30 Abnormal lab findings: Abnormal lab results WBC 12.1 K/mcL (4.3-11.1) H 06/19/18 Unknown RBC 3.66 M/mcL (4.19-5.50) L 06/19/18 Unknown Hgb 10.7 g/dL (12.9-16.9) L 06/19/18 Unknown Hct 33.7 % (37.5-50.1) L 06/19/18 Unknown RDW 17.4 % (11.5-14.5) H 06/19/18 Unknown Plt Count 118 K/mcL (140-400) L 06/19/18 Unknown Neutrophils # 9.7 K/mcL (1.6-8.9) H 06/19/18 Unknown PT 24.9 Seconds (9.4-12.1) H 06/19/18 03:57 APTT 38.3 Seconds (26.0-36.0) H D 06/17/18 15:30 D-Dimer 3768 ng/mLFEU (0-500) H 06/17/18 15:30 VBG pCO2 40 mmHg (41-51) L 06/17/18 21:21 VBG pO2 56 mmHg (25-50) H 06/17/18 21:21 Sodium 132 mEq/L (136-145) L 06/19/18 03:50 Carbon Dioxide 21 mEq/L (23-29) L 06/19/18 03:50 Glucose 177 mg/dL (70-105) H 06/19/18 03:50 POC Glucose 153 mg/dL (70-99) H 06/19/18 20:34 Calculated Osmolality 278 (280-300) L 06/19/18 03:50 Calcium 8.1 mg/dL (8.6-10.3) L 06/19/18 03:50 Total Bilirubin 1.4 mg/dL (0.3-1.0) H 06/18/18 04:15 AST 12 Units/L (13-39) L 06/18/18 04:15 B-Natriuretic Peptide 109 pg/mL (Less than 100) H 06/17/18 21:10 Serum Total Protein 5.7 g/dL (6.4-8.9) L 06/18/18 04:15 Albumin 3.0 g/dL (3.5-5.7) L 06/18/18 04:15 Procalcitonin 0.22 ng/mL (<=0.07) H 06/18/18 13:15 TSH 9.948 mcIU/mL (0.340-5.600) H 06/17/18 15:30 Urine Blood Moderate (Negative) H 06/17/18 16:55 Urine Bilirubin Small (Negative) H 06/17/18 16:55 Urine Microscopic RBC 50-100 per hpf (0-3) H 06/17/18 16:55 Ur Squamous Epith Cells Many per lpf (None-Few) H 06/17/18 16:55 Entero/Rhino (PCR) DETECTED (Not Detect) A 06/18/18 13:15 - Microbiology Findings Microbiology Findings: Microbiology, Last 48 Hours 06/18/18 11:30 Sputum Culture - Preliminary Sputum - Clinical Findings Intake & Output: Intake & Output 06/19/18 06/19/18 06/20/18 15:59 23:59 07:59 Intake Total 150 / 150 100 / 100 Output Total 75 / 75 0 / 0 100 / 100 Balance -75 / -75 150 / 150 0 / 0
[2018-06-20] MEDS: Acetylcysteine 10% 2 ML INHSOL IH SCH ×3 (07:32→19:48)
[2018-06-20 07:43] LABS: Prothrombin Time 22.8 Seconds (9.4-12.1)
[2018-06-20 07:53] LABS: Alanine Aminotransferase 21 Units/L (7-52); Alkaline Phosphatase 42 Units/L (34-104); Aspartate Amino Transferase 13 Units/L (13-39); BUN/Creatinine Ratio 9 (6-26); Bilirubin,Total 1.1 mg/dL (0.3-1.0); Blood Urea Nitrogen 10 mg/dL (8-23); Calcium 8.3 mg/dL (8.6-10.3); Carbon Dioxide 20 mEq/L (23-29); Chloride 103 mEq/L (98-107); Glucose 218 mg/dL (70-105); Osmolality,Calculated 278 (280-300); Potassium 4.2 mEq/L (3.5-5.1); Sodium 131 mEq/L (136-145); eGFR For Non-African Americans > 60 (> 60)
[2018-06-20 08:15] LABS: Basophils % 0.1 %; Eosinophils # 0.3 K/mcL (0.0-0.6); Eosinophils % 2.4 %; Hematocrit 34.6 % (37.5-50.1); Hemoglobin 11.6 g/dL (12.9-16.9); Immature Granulocytes % 0.6 % (0-4); Lymphocytes # 0.9 K/mcL (0.6-4.6); Lymphocytes % 7.2 %; Mean Corpuscular HGB Conc 33.5 g/dL (31.6-35.5); Mean Corpuscular Hemoglobin 30.1 pg (28.0-33.3); Mean Corpuscular Volume 89.9 fL (83.0-100.0); Monocytes # 0.7 K/mcL (0.0-1.3); Neutrophils # 10.1 K/mcL (1.6-8.9); Platelet Count 143 K/mcL (140-400); Red Blood Count 3.85 M/mcL (4.19-5.50); Red Cell Distribution Width 17.3 % (11.5-14.5); Segmented Neutrophils % 83.7 %
[2018-06-20] MEDS: Insulin LISPRO 300 UNITS/3 ML VIAL SQ SCH ×4 (09:30→19:58)
[2018-06-20] MEDS: Finasteride 5 MG TABLET PO SCH (09:30)
[2018-06-20] MEDS: Clotrimazole 1% CRM 15 GM TUBE TP SCH ×2 (09:33→21:50)
--- NOTE | 2018-06-20 11:51 | Procedure Note ---
<YnesshoshanaChristi sepulveda M - Last Filed: 06/20/18 15:38> Procedure: I examined this patient and my medical decision-making was reviewed with the Resident Physician. I agree with the documented findings, disposition and treatment plan as described except to the extent set forth below. I have personally supervised resident's performing diagnostic and therapeutic thoracentesis without immediate complications <Alba Campos - Last Filed: 06/20/18 18:48> Date of procedure: 06/20/18 Pre-op diagnosis: Pleural Effusion Post-op diagnosis: other (Hemothorax) Procedure: Informed consent was obtained. Procedure was non-emergent, time out performed. Area of pleural effusion was identified by ultrasound and site was marked. Area over right back was prepped and draped in normal sterile technique, and anesthetized using 6cc of lidocaine. A 20 guage needle/catheter was advanced into the pleural space and red blood colored fluid was seen in the syringe. Approximately 1000cc of pleural fluid was drained. Pt tolerated the procedure well, EBL was none. Post-procedure chest xray showed now evidence of pneumothroax and small bilateral effusions. Specimen was sent to lab. Anesthesia: local Surgeon: Alba Campos Was there an public services assistant present: Yes Tourist Adviser: Louie Gray Estimated blood loss (cc): 2 Specimen: Pleural fluid Condition: stable Disposition: floor
[2018-06-20 12:42] LABS: RBC,Pleural Fluid 0.313 M/mcL
[2018-06-20 13:11] LABS: Total Protein,Pleural Fluid 3.8 g/dL (No Ref Range)
[2018-06-20 13:15] LABS: Albumin 3.2 g/dL (3.5-5.7); Globulin 3.2 g/dL (2.4-3.5); Total Protein 6.4 g/dL (6.4-8.9)
[2018-06-20 15:51] LABS: Appearance of Pleural Fl Bloody (Clear)
--- NOTE | 2018-06-20 16:31 | Internal Med Progress Note ---
Hospitalist Progress Note - Encounter Date of Encounter: 06/20/18 Time of Encounter: 07:30 - Subjective Interval History: Mr. Doe is a 78 year old male with history of diastolic heart failure, pulmonary embolism, atrial fibrillation on Coumadin and recent hospitalization for pneumonia presented to the emergency department for near syncope. was found to be in septic shock secondary HAP. he was managed in the ICU for two days and transferred to floor for further care. Today he is doing fine, denies fever, reports that his palpitations have resolved, denies chest pain, nausea, vomiting, diarrhea. Currently eating breakfast reports that appetite has gotten better than yesterday. Still is complaining of shortness of breath and is hoping that after thoracocentesis his breathing will improve. - Exam Vitals: Temp Pulse Resp BP Pulse Ox 98.5 F 104 16 116/72 96 06/20/18 16:00 06/20/18 16:00 06/20/18 16:00 06/20/18 16:00 06/20/18 16:00 Exam: General: Patient is alert, oriented, no acute distress, morbidly obese, speaks in full sentences Head: atraumatic, normocephalic, Eye: normal appearance, PERRL, no scleral icterus, no conjunctival injection, left pupil is slightly more enlarged than the right from previous cataract surgery ENT: dry, membranes moist, normal external ear exam, poor dentition, no oral secretions Neck: normal inspection, trachea midline, full ROM, no carotid bruits, previous IJ site is covered with clean dressing Chest: normal inspection, symmetric chest rise, gynacomastia Respiratory: decreased breath sounds bilaterarily secondary to body habitus, absent breath shound on the Right MAL, negative for egophoney, crackles at the left MAL , no accessory muscle use Cardiovascular: Distant heart sounds secondary to body habitus, irregular, s1 and s2 No clicks or murmors. Abdomen: Bowel sounds present normoactive x-4 quadrants. Abdomen is soft, nondistended. no Epigastric tenderness. No guarding or rebound. No organomegaly noted, obese, has RUQ scar that is well healed musculoskeletal: Spontaneously moving all extremities. strength is 5/5, trace edema, no calf tenderness Skin: warm, dry, intact. left leg from ankle to knee has redness and erythema with distinct border Neuro: Alert and oriented x4. Sensation light touch intact. Cranial nerves 2- 12 is intact. Not aphasic, gait defered Psych: Patient's affect is normal - Assessment and Plan (1) HAP (hospital-acquired pneumonia) Current Visit: Yes Status: Acute Assessment and Plan: Multiple hospitalizations recently - Discharged on 05/30 for bilateral pneumonia and PE, Discharged on 06/15 for acute CHF exacerbation with pleural effusions. Blood PCR + for Enter/Rhinovirus. Urine antigens negative for Legionella and Strep. Sputum cx- normal respiratory julian CTA + for RLL atelectasis versus consolidation Leukocytosis is nearly resolved now 12.1 Patient is afebrile. Currently on 3L NC at 95%. Currently on Levaquin Continue Duonebs every 4 hours as needed. Continue CPAP/BiPAP PRN. (2) Septic shock Current Visit: Yes Status: Acute Assessment and Plan: Status post vasopressors in the ICU Central line has been removed site remains covered with clean dressing Blood pressure and heart rate have improved We will continue current management (3) Acute and chronic respiratory failure with hypoxia Current Visit: No Status: Acute Assessment and Plan: multifactorial, suspect large right sided pleural effusion, acute CHF, and HCAP to be contributing. CTA + for moderate to large right sided pleural effusion increased from prior BNP 109 Blood PCR + for Entero/Rhinovirus, urine antigens negative, sputum cultures negative (4) Atrial fibrillation with RVR Current Visit: Yes Status: Acute Assessment and Plan: Most likely secondary to septic shock INR is 2.2Coumadin was held for thoracocentesis will continue post thoracocentesis Was on an amiodarone drip in ICU for rhythm controlled transferred to the floor on home dose metoprolol 25 twice a day.- We will titrate up as per heart rate and blood pressure permits (5) Pleural effusion Current Visit: Yes Status: Acute Assessment and Plan: For thoracocentesis today will follow-up results Coumadin held will start Coumadin once thoracocentesis is performed (6) Pulmonary embolism Current Visit: No Status: Chronic (7) Diastolic CHF, acute on chronic Current Visit: Yes Status: Acute Assessment and Plan: TTE on 06/01/18 with LVEF 50% and no evidence of thrombus We will continue metoprolol 06/19/18 TTE was repeated to see the degree of diastolic CHF, suboptimal study will repeat imaging once heartrate is more controlled (8) Morbid obesity Current Visit: No Status: Chronic Assessment and Plan: Gaming Investigator is on board DVT Prophylaxis: INR was 2 this morning Will restart Coumadin after thoracocentesis. Repeat INR in the morning - Time Spent with Patient Total time spent is greater than 50% in coordination of care (as documented) at patient's floor/unit and/or counseling patient: Plan of Care Discussed with: patient Internal Medicine: Result - Labs CBC & Chem 7: 06/20/18 07:22 06/20/18 07:22 Labs: Short CBC 06/20/18 Range/Units 07:22 WBC 12.0 H (4.3-11.1) K/mcL Hgb 11.6 L (12.9-16.9) g/dL Hct 34.6 L (37.5-50.1) % Plt Count 143 (140-400) K/mcL Neutrophils # 10.1 H (1.6-8.9) K/mcL BMP 06/20/18 07:22 Sodium 131 L Potassium 4.2 Chloride 103 Carbon Dioxide 20 L BUN 10 Creatinine 1.11 Glucose 218 H Calcium 8.3 L Liver Function 06/20/18 06/20/18 Range/Units 07:22 12:33 Total Bilirubin 1.1 H 1.0 (0.3-1.0) mg/dL AST 13 (13-39) Units/L ALT 21 (7-52) Units/L Alkaline Phosphatase 42 (34-104) Units/L Albumin 3.0 L 3.2 L (3.5-5.7) g/dL - ABG Interpretation ABG results: ABG ABG pH 7.42 pH Units (7.32-7.45) 06/18/18 04:25 ABG pCO2 37 mmHg (35-45) 06/18/18 04:25 ABG pO2 93 mmHg (85-104) 06/18/18 04:25 ABG O2 Saturation 98 % (95-98) 06/18/18 04:25 PT/INR, D-dimer PT 22.8 Seconds (9.4-12.1) H 06/20/18 07:22 D-Dimer 3768 ng/mLFEU (0-500) H 06/17/18 15:30 - Impressions Impressions Retroperitoneum Ultrasound 06/18/18 14:00 IMPRESSION: The kidneys are not obstructed. Bilateral renal cysts. D/ / 06/18/2018 15:18:18 Andres Jones MD / trini Interpreting Provider: Andres Jones MD Chest X-Ray 06/20/18 11:38 IMPRESSION: No pneumothorax. Small bilateral pleural effusions with overlying atelectasis/ infiltrate, similar to the previous chest radiograph. D/ / Roger Tracey MD / Roger Tracey MD Interpreting Provider: Roger Tracey MD Consult Discharge Plan - Plan Referrals: Shayy Rodgers MD [Primary Care Provider] - (6) Pulmonary embolism Qualifiers: Pulmonary embolism type: other Chronicity: unspecified Acute cor pulmonale presence: without acute cor pulmonale Qualified Code(s): I26.99 - Other pulmonary embolism without acute cor pulmonale
[2018-06-20] MEDS: Levofloxacin 750 MG/150 ML 750 MG/150 ML BAG IVPB SCH (17:48)
[2018-06-20] MEDS ORDERED: Warfarin perPT PO PRN (18:00)
[2018-06-20] MEDS ORDERED: *HR* Warfarin 3 MG TABLET PO ONE (18:00)
[2018-06-21] MEDS: Ipratropium/Albuterol Neb 3 ML IH SCH ×6 (04:17→23:42)
[2018-06-21 04:36] LABS: INR 1.9; Prothrombin Time 21.3 Seconds (9.4-12.1)
[2018-06-21] MEDS: Acetylcysteine 10% 2 ML INHSOL IH SCH ×3 (07:19→20:02)
[2018-06-21] MEDS: Clotrimazole 1% CRM 15 GM TUBE TP SCH ×2 (08:52→19:58)
[2018-06-21] MEDS: Finasteride 5 MG TABLET PO SCH (08:59)
[2018-06-21] MEDS: Insulin LISPRO 300 UNITS/3 ML VIAL SQ SCH ×4 (08:59→21:30)
[2018-06-21] MEDS: *HR* Enoxaparin 150 MG/ML SYRINGE SQ SCH ×2 (12:18→23:00)
[2018-06-21] MEDS: Levofloxacin 750 MG/150 ML 750 MG/150 ML BAG IVPB SCH (17:30)
--- NOTE | 2018-06-21 17:55 | Internal Med Progress Note ---
Hospitalist Progress Note - Encounter Date of Encounter: 06/21/18 Time of Encounter: 08:15 - Subjective Interval History: Mr. Doe is a 78 year old male with history of diastolic heart failure, pulmonary embolism, atrial fibrillation on Coumadin and recent hospitalization for pneumonia presented to the emergency department for near syncope. was found to be in septic shock secondary HAP. he was managed in the ICU for two days and transferred to floor for further care. Today he is doing fine, denies fever, reports that his palpitations have resolved, denies chest pain, nausea, vomiting, diarrhea. is working with PT currently, agrees with returning to rehab for further rehabilitation. his breathing has improved drastically since he had thorcaocentesis yesterday. reports that appetite has gotten better denies fver, chills, palpitations, N/V/D, cough. - Exam Vitals: Temp Pulse Resp BP Pulse Ox 98.2 F 101 16 111/56 90 06/21/18 11:03 06/21/18 15:00 06/21/18 16:06 06/21/18 15:00 06/21/18 16:06 - Assessment and Plan (1) HAP (hospital-acquired pneumonia) Current Visit: Yes Status: Acute Assessment and Plan: Multiple hospitalizations recently - Discharged on 05/30 for bilateral pneumonia and PE, Discharged on 06/15 for acute CHF exacerbation with pleural effusions. Blood PCR + for Enter/Rhinovirus. Urine antigens negative for Legionella and Strep. Sputum cx- normal respiratory julian CTA + for RLL atelectasis versus consolidation Leukocytosis is nearly resolved now 12.0 Patient is afebrile. Currently on 3L NC at 95%. Currently on Levaquin will continue for total duration Abx of of [address] aden's recs - currently day 5 of 8 Continue Duonebs every 4 hours as needed. Continue CPAP/BiPAP PRN. (2) Septic shock Current Visit: Yes Status: Resolved Assessment and Plan: Status post vasopressors in the ICU Central line has been removed site remains covered with clean dressing Blood pressure and heart rate have improved We will continue current management (3) Acute and chronic respiratory failure with hypoxia Current Visit: No Status: Acute Assessment and Plan: multifactorial, suspect large right sided pleural effusion, acute CHF, and HCAP to be contributing. CTA + for moderate to large right sided pleural effusion increased from prior BNP 109 Blood PCR + for Entero/Rhinovirus, urine antigens negative, sputum cultures negative s/p thoracocentesis on 06/20/18- cx of the pleural fluid - no growth - prelim (4) Atrial fibrillation with RVR Current Visit: Yes Status: Acute Assessment and Plan: Most likely secondary to septic shock INR 1.9 today. will bridge with lovenox, follow INR in the AM Was on an amiodarone drip in ICU for rhythm controlled - now discontinued - HR controlled transferred to the floor on home dose metoprolol 25 twice a day.- We will titrate up as per heart rate and blood pressure permits (5) Pleural effusion Current Visit: Yes Status: Acute Assessment and Plan: s/p thoracocentesis on 06/20/18. no growth in prelim. results (6) Pulmonary embolism Current Visit: No Status: Chronic Assessment and Plan: sub segmental PE on coumadin INR sub therapeutic 1.9- bridged with lovenox follow INR in the AM to follow up with pulmonology as OP needs to have repeat CT chest in 1-2 months (7) Diastolic CHF, acute on chronic Current Visit: Yes Status: Acute Assessment and Plan: TTE on 06/01/18 with LVEF 50% and no evidence of thrombus We will continue metoprolol 06/19/18 TTE was repeated to see the degree of diastolic CHF, suboptimal study will repeat imaging once heartrate is more controlled will get repeat TTE today as HR is more controlled (8) Morbid obesity Current Visit: No Status: Chronic Assessment and Plan: Middle School Science Teacher is on board DVT Prophylaxis: on coumadin - Time Spent with Patient Total time spent is greater than 50% in coordination of care (as documented) at patient's floor/unit and/or counseling patient: Plan of Care Discussed with: patient Internal Medicine: Result - Labs CBC & Chem 7: 06/20/18 07:22 06/20/18 07:22 - ABG Interpretation ABG results: ABG ABG pH 7.42 pH Units (7.32-7.45) 06/18/18 04:25 ABG pCO2 37 mmHg (35-45) 06/18/18 04:25 ABG pO2 93 mmHg (85-104) 06/18/18 04:25 ABG O2 Saturation 98 % (95-98) 06/18/18 04:25 PT/INR, D-dimer PT 21.3 Seconds (9.4-12.1) H 06/21/18 03:50 D-Dimer 3768 ng/mLFEU (0-500) H 06/17/18 15:30 Consult Discharge Plan - Plan Referrals: Shayy Rodgers MD [Primary Care Provider] - (6) Pulmonary embolism Qualifiers: Pulmonary embolism type: other Chronicity: unspecified Acute cor pulmonale presence: without acute cor pulmonale Qualified Code(s): I26.99 - Other pulmonary embolism without acute cor pulmonale
[2018-06-21] MEDS ORDERED: *HR* Warfarin 3 MG TABLET PO ONE (18:00)
[2018-06-22 01:45] LABS: Basophils % 0.1 %; Eosinophils # 0.3 K/mcL (0.0-0.6); Eosinophils % 3.7 %; Hematocrit 33.4 % (37.5-50.1); Immature Granulocytes % 0.6 % (0-4); Lymphocytes # 1.2 K/mcL (0.6-4.6); Lymphocytes % 13.7 %; Mean Corpuscular HGB Conc 31.4 g/dL (31.6-35.5); Mean Corpuscular Hemoglobin 28.8 pg (28.0-33.3); Mean Corpuscular Volume 91.5 fL (83.0-100.0); Mean Platelet Volume 9.9 fL (9.4-12.4); Monocytes # 0.7 K/mcL (0.0-1.3); Monocytes % 8.6 %; Neutrophils # 6.3 K/mcL (1.6-8.9); Platelet Count 185 K/mcL (140-400); Red Blood Count 3.65 M/mcL (4.19-5.50); Red Cell Distribution Width 17.2 % (11.5-14.5); Segmented Neutrophils % 73.3 %
[2018-06-22 01:46] LABS: Hemoglobin 10.5 g/dL (12.9-16.9)
[2018-06-22 01:51] LABS: INR 2.5; Prothrombin Time 27.7 Seconds (9.4-12.1)
[2018-06-22 02:09] LABS: BUN/Creatinine Ratio 9 (6-26); Blood Urea Nitrogen 9 mg/dL (8-23); Calcium 8.3 mg/dL (8.6-10.3); Carbon Dioxide 24 mEq/L (23-29); Chloride 101 mEq/L (98-107); Glucose 115 mg/dL (70-105); Osmolality,Calculated 274 (280-300); Potassium 4.1 mEq/L (3.5-5.1); Sodium 132 mEq/L (136-145); eGFR For Non-African Americans > 60 (> 60)
[2018-06-22] MEDS: Ipratropium/Albuterol Neb 3 ML IH SCH ×6 (03:55→23:54)
[2018-06-22] MEDS: Acetylcysteine 10% 2 ML INHSOL IH SCH ×3 (08:00→23:54)
[2018-06-22] MEDS: Finasteride 5 MG TABLET PO SCH (09:00)
[2018-06-22] MEDS: Clotrimazole 1% CRM 15 GM TUBE TP SCH ×2 (09:05→21:29)
[2018-06-22] MEDS: Insulin LISPRO 300 UNITS/3 ML VIAL SQ SCH ×4 (09:05→21:28)
--- NOTE | 2018-06-22 10:41 | Discharge Summary ---
- NOTES TO OUTPATIENT PROVIDER Notes to Outpatient Provider: follow up with pleural fluids cultures and cytology. needs to have a CT scan of the chest in the next 1-2 months. follow up with Dr. Alexander the air bag buffer. follow up with cardiology. monitor INR on monday. follow CBC and BMP. oxygen use during the day. cpap at night Orders not resulted at time of discharge: Pending orders 06/18/18 15:10 MRSA Surveillance Screen [MOLMIC] Routine 06/20/18 11:38 Cytology [PTH] Routine 06/20/18 11:40 Culture,Body Fluid [RM] Routine 06/21/18 10:50 Albumin,Pleural Fluid [BF] Routine 06/23/18 04:00 PT/INR [Prothrombin Time INR] [COAG] AM 0400 06/24/18 04:00 PT/INR [Prothrombin Time INR] [COAG] AM 0400 06/25/18 04:00 PT/INR [Prothrombin Time INR] [COAG] AM 0400 Date of Encounter: 06/22/18 Time of Encounter: 10:11 - Discharge Diagnosis (1) Septic shock Priority: Primary Status: Resolved (2) HAP (hospital-acquired pneumonia) Priority: Secondary Status: Acute (3) Acute and chronic respiratory failure with hypoxia Priority: Secondary Status: Acute (4) Atrial fibrillation with RVR Priority: Secondary Status: Acute (5) Pleural effusion Priority: Secondary Status: Acute (6) Pulmonary embolism Priority: Secondary Status: Chronic Qualifiers: Pulmonary embolism type: other Chronicity: unspecified Acute cor pulmonale presence: without acute cor pulmonale Qualified Code(s): I26.99 - Other pulmonary embolism without acute cor pulmonale (7) Diastolic CHF, acute on chronic Priority: Secondary Status: Acute (8) Morbid obesity Priority: Secondary Status: Chronic Hospital course: Mr. Doe is a 78 year old male with history of hypertension, hyperlipidemia , atrial fibrillation on coumadin, diastolic CHF, COPD and chronic respiratory failure, KYLEE on CPAP who presented on 06/17 with SOB and episode of lightheadedness since discharge 06/15/18. He was recently discharged from the hospital after he was treated for diastolic CHF. Multiple hospital admission this year for SOB and he was treated for PE, PNA, and pericardial effusion. Also recent complete heart block s/p PPM. While in the ED he was hypotensive, in A. fib with RVR, had significant leukocytosis and was hypoxic. Central line was inserted he was started on vasopressors and transferred to the ICU for further management of septic shock secondary to HAP. He was treated with triple Abx. Pulmonology/critical care was consulted and recommendations were followed. CTA of the chest showed moderate to large right plueral effusion and PNA. After 2 days his blood pressure improved, central line was removed. He was treated with amiodarone drip for heart rate control and was later transitioned to home dose metoprolol. He was transferred to telemetry for further management. Coumadin was held, pulmonology performed thoracocentesis on June 20 which showed 0.313 RBC. Cultures of the pleural fluid are preliminary negative. Cytology is pending. Blood cultures + for Entero/Rhinovirus, sputum cx negative, urine antigens negative. coumadin was resumed post thoracocentesis as he has atrial fibrillation and recently diagnosed pulmonary embolism. H&H followed 48 hours after thoracocentesis and remains stable 10.5/33.4 ( baseline is anywhere from 9 -11). INR was 2.5 and therapeutic. Cardiology was consulted, recommendations followed. Transthoracic echo was done results below. Physical therapy and rehabilitation saw the patient's and recommendations were followed. He continued antibiotics and as per pulmonary recommendations he is to complete an 8 day course. Continue 3L supplemental O2 at home. repeat CT chest in 1-2 months and outpatient pulmonary follow up. CHF education reviewed. Low sodium diet and daily weights at [facility]. Recent CV testing: Limited TTE 05/30/18: There is a small to moderate pericardial effusion present. There is no echocardiographic evidence of tamponade. Compared to prior images from 05/30/2018, pericardial effusion is stable to slightly improved. TTE 05/18/18: LVEF 60%. Normal LV chamber size and function. Mild concentric left ventricular hypertrophy. Indeterminate diastolic function. Grossly, mildly dilated right ventricle with normal function. Mild aortic sclerosis suggested by Doppler. Mean gradient 9 mmHg. No evidence of pulmonary hypertension. RVSP not well obtained and could be underestimated. CT/CT angio chest- 06/17/18 IMPRESSION: 1. Respiratory motion artifact limits evaluation of the segmental pulmonary artery branches. Previously noted nonocclusive filling defect within the right basilar segmental pulmonary artery branch is not appreciated on this study. No clear evidence of pulmonary emboli otherwise, especially within the central vessels. 2. Moderate to large right pleural effusion, slightly increased from the prior study. Small left pleural effusion. Large area of atelectasis or consolidation involving a large portion of the right lower lobe. Additional atelectasis or consolidation at the left lung base and lingula. 3. Mild to moderate cardiomegaly. Trace pericardial effusion, improved from the prior study. echocardiogram w enhance 06/18/18 Impressions: Technically challenging due to suboptimal echocardiographic windows; body habitus, poor positioning and elevated heart rates. Atrial fibrillation with RVR. LV systolic function appears low normal to mildly reduced but windows are not optimal even with use of Definity. Indeterminate diastolic function. RV is not optimally seen or evaluated. Mild tricuspid regurgitation. Mild pulmonic regurgitation. No pulmonary hypertension based on TR signal that may not have been well obtained. Recommend repeat study when clinical status improves. Discharge discussed with: patient, family, nurse, social work, case management - Time Spent with Patient Total time spent providing and/or coordinating discharge services: Greater than 30 minutes (45) - Discharge Medications Prescriptions: Aspirin [Ecotrin] 81 mg PO DAILY 30 Days #30 tablet. Clotrimazole 1% CRM [Lotrimin 1%] 1 appl TP BID #2 tube levoFLOXacin [Levaquin] 750 mg PO Q24H #3 tablet Omeprazole 20 mg PO DAILY 30 Days #30 tablet.dr Weldon Medications: Acetylcysteine [Z-Wazenq-j-Cysteine] 600 mg PO TIDAC 05/17/18 [History] Amitriptyline HCl 100 mg PO DAILY 05/17/18 [History] Atorvastatin Calcium [Lipitor] 20 mg PO HS 05/17/18 [History] FLUoxetine HCl [Prozac] 20 mg PO DAILY 05/17/18 [History] Finasteride [Proscar] 5 mg PO DAILY 05/17/18 [History] Fish Oil/Dha/Epa [Fish Oil 1,200 mg Fish Oil] 1 cap PO DAILY 05/17/18 [History] Fluticasone Propionate Nasal [Flonase] 1 spr NS DAILY 05/17/18 [History] Fluticasone/Salmeterol [Advair Hfa 230-21 Mcg Inhaler] 1 puff IH DAILY 05/17/18 [History] Levothyroxine [Synthroid] 125 mcg PO 0630 05/17/18 [History] Loratadine [Claritin] 10 mg PO DAILY 05/17/18 [History] Lutein 20 mg PO DAILY 05/17/18 [History] Metformin HCl [Glucophage] 1,000 mg PO BID 05/17/18 [History] Metoprolol [Lopressor] 25 mg PO BID 05/17/18 [History] SitaGLIPtin [Januvia] 100 mg PO DAILY 05/17/18 [History] Umeclidinium [place] [Incruse Ellipta] 62.5 mcg IH DAILY 05/17/18 [History] Vit A/Vit C/Vit E/Zinc/Copper [Preservision Areds Tablet] 1 tab PO DAILY [History] Warfarin [Coumadin] 6 mg PO [id number] 05/17/18 [History] Warfarin [Coumadin] 9 mg PO TH 05/17/18 [History] Ipratropium/Albuterol Neb [Duoneb] 3 ml IH Q6HR 06/01/18 [History] Polyethylene Glycol 3350 [MiraLAX] 17 gm PO DAILY PRN 06/01/18 [History] Furosemide [Lasix] 40 mg PO BIDDIURETIC tablet 06/15/18 [Rx] Gabapentin [Neurontin] 600 mg PO TID #15 tablet 06/15/18 [Rx] Insulin DETEMIR [Levemir] 20 unit SQ BID g1ocaue 06/15/18 [Rx] Aspirin [Ecotrin] 81 mg PO DAILY 30 Days #30 tablet. 06/22/18 [Rx] Clotrimazole 1% CRM [Lotrimin 1%] 1 appl TP BID #2 tube 06/22/18 [Rx] Omeprazole 20 mg PO DAILY 30 Days #30 tablet. 06/22/18 [Rx] levoFLOXacin [Levaquin] 750 mg PO Q24H #3 tablet 06/22/18 [Rx] Allergies/Adverse Reactions: 3 Allergy/AdvReac Type Severity Reaction Status Date / Time No Known Allergies Allergy Verified 05/17/18 20:27 Date of admission: 06/17/18 20:45 Primary care physician: Shayy Rodgers MD Consults: 06/18/18 14:38 Consult to Pulmonology [CONS] Stat Consulting Provider: [facility] [place] Reason for Consult: acute repiratory failure Call Completed: Yes 06/21/18 11:28 Consult to Physical Therapy [CONS] Routine Comment: Evaluate, develop and implement POC Reason for Consult: patient weak in hospital Does patient have active BEDREST order?: No Is patient medically & hemodynamically stable?: Yes Patient assessed for mobility or mobilized this visit?: Yes OT [Consult to Occupational Therapy] [CONS] Routine Comment: Evaluate, develop and implement POC Reason for Consult: patient weak in hospital Does patient have active BEDREST order?: No Is patient medically & hemodynamically stable?: Yes Patient assessed for mobility or mobilized this visit?: Yes Anticipated date of discharge: 06/23/18 - Constitutional Vitals: Temp Pulse Resp BP Pulse Ox 98.3 F 103 17 103/75 91 06/22/18 09:04 06/22/18 09:04 06/22/18 09:04 06/22/18 09:04 06/22/18 09:04 Exam: General: Patient is alert, oriented, no acute distress, morbidly obese, speaks in full sentences Head: atraumatic, normocephalic, Eye: normal appearance, PERRL, no scleral icterus, no conjunctival injection, left pupil is slightly more enlarged than the right from previous cataract surgery ENT: dry, membranes moist, normal external ear exam, poor dentition, no oral secretions Neck: normal inspection, trachea midline, full ROM, no carotid bruits, previous IJ site is covered with clean dressing Chest: normal inspection, symmetric chest rise, gynacomastia Respiratory: decreased breath sounds bilaterarily secondary to body habitus, absent breath shound on the Right MAL, negative for egophoney, crackles at the left MAL , no accessory muscle use Cardiovascular: Distant heart sounds secondary to body habitus, irregular, s1 and s2 No clicks or murmors. Abdomen: Bowel sounds present normoactive x-4 quadrants. Abdomen is soft, nondistended. no Epigastric tenderness. No guarding or rebound. No organomegaly noted, obese, has RUQ scar that is well healed musculoskeletal: Spontaneously moving all extremities. strength is 5/5, trace edema, no calf tenderness Skin: warm, dry, intact. left leg from ankle to knee has redness and erythema with distinct border Neuro: Alert and oriented x4. Sensation light touch intact. Cranial nerves 2- 12 is intact. Not aphasic, gait defered Psych: Patient's affect is normal - Patient Status Disposition: Transfer SNF Condition: Fair Functional capacity at discharge: uses cane/walker Overall status at discharge: patient is progressing back to baseline - Discharge Instructions Instructions: Atrial Fibrillation (DC), Acute Respiratory Distress Syndrome (DC ), Heart Failure (DC) Follow Up With: Shayy Rodgers MD [Primary Care Provider] - Christi Martinez MD [Partnered Physician] - Homero Meyer MD [Partnered Physician] - - Diet and Activity Activity: as per physical therapy Diet: low salt diet
--- NOTE | 2018-06-22 11:29 | Pulmonology Progress Note ---
<Alba Campos Sejal - Last Filed: 06/22/18 11:30> Date of Encounter: 06/22/18 Time of Encounter: 10:35 Assessment and Plan (1) HAP (hospital-acquired pneumonia) Current Visit: Yes Status: Acute Likely result of recent hospitalizations - Discharged on 05/30 for bilateral pneumonia and PE, Discharged on 06/15 for acute CHF exacerbation with pleural effusions. Blood PCR + for Enter/Rhinovirus. Urine antigens negative for Legionella and Strep. Sputum cx negative. CTA + for RLL atelectasis versus consolidation Lactic Acid 1.8 WBC down to 8.6 (21.3 on admission) Patient is afebrile. Currently on 2L NC at 91%. SOB improved s/p thora. Denies chest pain. On Levaquin day 5 of 8. Transitioned to oral for discharge. Blood cultures + for Entero/Rhinovirus, sputum cx negative, urine antigens negative. Recommend follow-up CT in 1-2 months and outpatient follow up with Pulmonology. (2) Septic shock Current Visit: Yes Status: Acute Likely multifactorial, due to HCAP and CHF. S/p vassopressors. Central line removed, site covered with dressing. Patient's BP and HR stable. Afebrile. Continue levaquin to complete 8 days of therapy. (3) Acute respiratory failure with hypoxia Current Visit: Yes Status: Acute Likely multifactorial, due to large right sided pleural effusion, acute CHF, and HCAP. CTA + for moderate to large right sided pleural effusion increased from prior BNP 109 Blood PCR + for Entero/Rhinovirus, urine antigens negative, sputum cultures negative. ABG within normal limits. SOB improved s/p thora. 91% 2L NC. Continue 3L supplemental O2 at home. Follow up outpatient with pulmonology. (4) Atrial fibrillation with RVR Current Visit: Yes Status: Acute Etiology unknown. Possibly secondary to severe hypotension SBP 50s to 70s on admission. Amiodarone drip dcd, and patient's home metoprolol was resumed. INR 2.5 today SOB improved s/p thora. Denies chest pain or palpitations. Rate controlled Primary team bridging coumadin with lovenox for discharge. Continue Metoprolol. (5) Pleural effusion Current Visit: Yes Status: Acute Likely related to diastolic heart failure, also consider patient's history of PE and HCAP. CTA + moderate to large right sided pleural effusion. Negative for PE. Entero/Rhinovirus +. Urine antigen negative. Sputum cultures negative. BNP 109 Thoracentesis performed 06/20, 1L bloody fluid removed. CXR after thora showed no signs of pneumo, small b/l pleural effusions. Patient admits to improved SOB s/p thora. Denies chest pain. Pleural effusion exudative per lights criteria. Patient on anticoagulation, bloody fluid, suspect hemothorax. Hgb 10.5, Hct 33.4, INR 2.5 today after resuming coumadin. Primary team bridging coumadin with lovenox. Recommend repeat CT in 1-2 months and outpatient pulmonary follow up. (6) Diastolic CHF, acute on chronic Current Visit: Yes Status: Acute Likely exacerbated by AFib RVR BNP 109 CTA + Mild to moderate cardiomegaly. Trace pericardial effusion, improved from prior study. Moderate to large right pleural effusion, increased form prior study. TTE on 06/01/18 with LVEF 50% and no evidence of thrombus ECHO 06/18/18 suboptimal due to body habitus, poor positioning, and elevated HR. LV systolic funstion low normal - mildly reduced. Intermediate diastolic function. Mild tricuspid/pulmonic regurgitation. No evidence of pulmonary HTN. Rate controlled. Resume home medications as tolerated. (7) KYLEE (obstructive sleep apnea) Current Visit: Yes Status: Chronic Chronic, reported noncompliance with CPAP at home Continue CPAP on discharge. (8) DVT prophylaxis Current Visit: Yes Status: Acute SCDS INR therapeutic at 2.5 Subjective Principal diagnosis: HCAP Interval history: Patient reports improvement in SOB s/p thora. Feels much improved since admission. Objective PUL Vital signs: Last Vital Signs Temp 98.3 F 06/22/18 09:04 Pulse 103 06/22/18 09:04 Resp 17 06/22/18 11:03 BP 103/75 06/22/18 09:04 Pulse Ox 91 06/22/18 11:03 General appearance: no acute distress Eyes: nonicteric Effort: normal Auscultation: bilateral: other (crackles present bilaterally in the lower lugn dickson) Cardiovascular: irregular rhythm normal mental status, pupils equal and round mood appropriate Results - Laboratory Findings CBC and BMP: 06/22/18 01:02 06/22/18 01:02 ABG ABG pH 7.42 pH Units (7.32-7.45) 06/18/18 04:25 ABG pCO2 37 mmHg (35-45) 06/18/18 04:25 ABG pO2 93 mmHg (85-104) 06/18/18 04:25 ABG O2 Saturation 98 % (95-98) 06/18/18 04:25 PT/INR, D-dimer PT 27.7 Seconds (9.4-12.1) H 06/22/18 01:02 D-Dimer 3768 ng/mLFEU (0-500) H 06/17/18 15:30 Abnormal lab findings: Abnormal lab results RBC 3.65 M/mcL (4.19-5.50) L 06/22/18 01:02 Hgb 10.5 g/dL (12.9-16.9) L 06/22/18 01:02 Hct 33.4 % (37.5-50.1) L 06/22/18 01:02 MCHC 31.4 g/dL (31.6-35.5) L 06/22/18 01:02 RDW 17.2 % (11.5-14.5) H 06/22/18 01:02 PT 27.7 Seconds (9.4-12.1) H 06/22/18 01:02 APTT 38.3 Seconds (26.0-36.0) H D 06/17/18 15:30 D-Dimer 3768 ng/mLFEU (0-500) H 06/17/18 15:30 VBG pCO2 40 mmHg (41-51) L 06/17/18 21:21 VBG pO2 56 mmHg (25-50) H 06/17/18 21:21 Sodium 132 mEq/L (136-145) L 06/22/18 01:02 Glucose 115 mg/dL (70-105) H 06/22/18 01:02 POC Glucose 177 mg/dL (70-99) H 06/21/18 21:09 Calculated Osmolality 274 (280-300) L 06/22/18 01:02 Calcium 8.3 mg/dL (8.6-10.3) L 06/22/18 01:02 B-Natriuretic Peptide 109 pg/mL (Less than 100) H 06/17/18 21:10 Albumin 3.2 g/dL (3.5-5.7) L 06/20/18 12:33 Albumin/Globulin Ratio 1.0 (1.1-2.2) L 06/20/18 12:33 Procalcitonin 0.22 ng/mL (<=0.07) H 06/18/18 13:15 TSH 9.948 mcIU/mL (0.340-5.600) H 06/17/18 15:30 Urine Blood Moderate (Negative) H 06/17/18 16:55 Urine Bilirubin Small (Negative) H 06/17/18 16:55 Urine Microscopic RBC 50-100 per hpf (0-3) H 06/17/18 16:55 Ur Squamous Epith Cells Many per lpf (None-Few) H 06/17/18 16:55 Pleural Appearance Bloody (Clear) A 06/20/18 11:40 Pleural RBC 0.313 M/mcL (0.000-0.002) H 06/20/18 11:40 Pleural Tot Nuc Cell 1321 TNC/mcL (0-1000) H 06/20/18 11:40 Entero/Rhino (PCR) DETECTED (Not Detect) A 06/18/18 13:15 - Microbiology Findings Microbiology Findings: Microbiology, Last 48 Hours 06/20/18 11:40 Body Fluid Culture - Preliminary Pleural Fluid 06/18/18 11:30 Sputum Culture - Final Sputum - Clinical Findings Intake & Output: Intake & Output 06/21/18 06/22/18 06/22/18 23:59 07:59 15:59 Intake Total 240 / 240 240 / 240 Output Total 350 / 350 Balance -110 / -110 240 / 240 Weight 142.8 kg Consult Discharge Plan - Plan Referrals: Shayy Rodgers MD [Primary Care Provider] - <Christi Martinez - Last Filed: 06/22/18 14:30> Date of Encounter: 06/22/18 Objective PUL Vital signs: Last Vital Signs Temp 98.3 F 06/22/18 12:07 Pulse 92 06/22/18 12:07 Resp 16 06/22/18 12:07 BP 121/71 06/22/18 12:07 Pulse Ox 96 06/22/18 12:07 Results - Laboratory Findings CBC and BMP: 06/22/18 01:02 06/22/18 01:02 ABG ABG pH 7.42 pH Units (7.32-7.45) 06/18/18 04:25 ABG pCO2 37 mmHg (35-45) 06/18/18 04:25 ABG pO2 93 mmHg (85-104) 06/18/18 04:25 ABG O2 Saturation 98 % (95-98) 06/18/18 04:25 PT/INR, D-dimer PT 27.7 Seconds (9.4-12.1) H 06/22/18 01:02 D-Dimer 3768 ng/mLFEU (0-500) H 06/17/18 15:30 Abnormal lab findings: Abnormal lab results RBC 3.65 M/mcL (4.19-5.50) L 06/22/18 01:02 Hgb 10.5 g/dL (12.9-16.9) L 06/22/18 01:02 Hct 33.4 % (37.5-50.1) L 06/22/18 01:02 MCHC 31.4 g/dL (31.6-35.5) L 06/22/18 01:02 RDW 17.2 % (11.5-14.5) H 06/22/18 01:02 PT 27.7 Seconds (9.4-12.1) H 06/22/18 01:02 APTT 38.3 Seconds (26.0-36.0) H D 06/17/18 15:30 D-Dimer 3768 ng/mLFEU (0-500) H 06/17/18 15:30 VBG pCO2 40 mmHg (41-51) L 06/17/18 21:21 VBG pO2 56 mmHg (25-50) H 06/17/18 21:21 Sodium 132 mEq/L (136-145) L 06/22/18 01:02 Glucose 115 mg/dL (70-105) H 06/22/18 01:02 POC Glucose 177 mg/dL (70-99) H 06/21/18 21:09 Calculated Osmolality 274 (280-300) L 06/22/18 01:02 Calcium 8.3 mg/dL (8.6-10.3) L 06/22/18 01:02 B-Natriuretic Peptide 109 pg/mL (Less than 100) H 06/17/18 21:10 Albumin 3.2 g/dL (3.5-5.7) L 06/20/18 12:33 Albumin/Globulin Ratio 1.0 (1.1-2.2) L 06/20/18 12:33 Procalcitonin 0.22 ng/mL (<=0.07) H 06/18/18 13:15 TSH 9.948 mcIU/mL (0.340-5.600) H 06/17/18 15:30 Urine Blood Moderate (Negative) H 06/17/18 16:55 Urine Bilirubin Small (Negative) H 06/17/18 16:55 Urine Microscopic RBC 50-100 per hpf (0-3) H 06/17/18 16:55 Ur Squamous Epith Cells Many per lpf (None-Few) H 06/17/18 16:55 Pleural Appearance Bloody (Clear) A 06/20/18 11:40 Pleural RBC 0.313 M/mcL (0.000-0.002) H 06/20/18 11:40 Pleural Tot Nuc Cell 1321 TNC/mcL (0-1000) H 06/20/18 11:40 Entero/Rhino (PCR) DETECTED (Not Detect) A 06/18/18 13:15 - Microbiology Findings Microbiology Findings: Microbiology, Last 48 Hours 06/20/18 11:40 Body Fluid Culture - Preliminary Pleural Fluid 06/18/18 11:30 Sputum Culture - Final Sputum - Clinical Findings Intake & Output: Intake & Output 06/21/18 06/22/18 06/22/18 23:59 07:59 15:59 Intake Total 240 / 240 480 / 480 Output Total 350 / 350 450 / 450 Balance -110 / -110 30 / 30 Weight 142.8 kg - Attending Attestation I examined this patient and my medical decision-making was reviewed with the Resident Physician. I agree with the documented findings, disposition and treatment plan as described except to the extent set forth below. Patient seen and examined. Labs, radiology, chart personally reviewed. Agree with resident's history and physical, assessment, plan with following comments: [employer]: Patient follows commands, Pulmonary: Acceptable oxygenation and ventilation and patient can follow-up as outpatient in 1-[address] chest. At this time there is no evidence of infection and they suspect fluid was hematologic mainly because of medication he is on anticoagulation. Will check with lab regarding cytology of the fluid which can be followed up as outpatient.
--- NOTE | 2018-06-22 15:23 | Cardiology Consult Note ---
<Ba Mohr Stephany - Last Filed: 06/22/18 15:20> Date of Encounter: 06/22/18 Time of Encounter: 14:30 Assessment and Plan (1) Diastolic CHF, acute on chronic Current Visit: Yes Status: Acute Acute on chronic CHFpEF. Repeat TTE this admission reviewed. Study was poor due to atrial fibrillation with RVR. LV function appears to be low normal. TTE 06/10/18- EF 50%, no pericardial effusion. TTE 04/2018 EF 65%. Recently diuresed with IV lasix 06/09/18-06/15/18. Pleural effusion did not resolve and thoracentesis was recommended. One sided pleural effusion is not typical for CHF. Also diagnosed with PNA. S/ p thoracentesis 06/20. Medications held on admit due to hypotension in the setting of septic shock. B/p improved. Recommend lasix dose at 40 mg BID. CHF education reviewed. Low sodium diet and daily weights at [facility]. No further testing at this time. Call with questions. (2) Atrial fibrillation Current Visit: No Status: Chronic Currently rate controlled afib. RVR seen on admit with HR 130's. Due to hypotension he was treated with amiodarone GTT. Now on bb and rate controlled. On coumadin for AC. Qualifiers: Atrial fibrillation type: paroxysmal Qualified Code(s): I48.0 - Paroxysmal atrial fibrillation Discussion w patient/family: The assessment and plan as outlined above was discussed with the patient and/or family members who expressed understanding and agreement. All questions were answered. Thank you for involving us in the care of your patient. Please call with any questions. History of Present Illness Consult date: 06/22/18 Requesting physician: Sade Qureshi Consult reason: diastolic CHF Chief complaint: Increasing SOB History of present illness: Mr. Doe is a 78 year old male with history of hypertension, hyperlipidemia , atrial fibrillation on coumadin, diastolic CHF, COPD and chronic respiratory failure, KYLEE on CPAP who presented with SOB and episode of lightheadedness since discharge 06/15/18. He was recently discharged from the hospital after he was treated for diastolic CHF. Multiple hospital admission this year for SOB and he was treated for PE, PNA, and pericardial effusion. Also recent complete heart block s/p PPM. This admission he is found to have healthcare acquired pneumonia with septic shock and a persistent pleural effusion. This admission he was found to have atrial fibrillation with RVR, HR 130. CTA of the chest showed moderate to large right plueral effusion and PNA. He was treated in ICU for two days for septic shock and at one point required amiodarone for HR control. He was transitioned to metoprolol. Cardiology has been consulted to help with CHF management. Pulmonology following PNA and pleural effusion. He underwent thoracentesis of his pleural effusion that did not resolve with IV diuretic last admission. 1L of fluid was removed. He states he is breathing better since thoracentesis. Reports he is compliant with low sodium diet at the [facility]. Recent CV testing: Limited TTE 05/30/18: There is a small to moderate pericardial effusion present. There is no echocardiographic evidence of tamponade. Compared to prior images from 05/30/2018, pericardial effusion is stable to slightly improved. TTE 05/18/18: LVEF 60%. Normal LV chamber size and function. Mild concentric left ventricular hypertrophy. Indeterminate diastolic function. Grossly, mildly dilated right ventricle with normal function. Mild aortic sclerosis suggested by Doppler. Mean gradient 9 mmHg. No evidence of pulmonary hypertension. RVSP not well obtained and could be underestimated. Past Med Surg Social Fam HX - Past Medical History Attestation: Yes The following information was validated with the patient. Medical history: arthritis, atrial fibrillation, COPD, diabetes, GERD, hyperlipidemia, hypertension, thyroid disease, other Additional medical history: Hypothyroid. Sleep apnea Psychiatric history: no psych history - Past Surgical History Surgical History: cholecystectomy, knee replacement, orthopedic, other, pacemaker Additional surgical history: Gallbladder, bilateral knee replacement, Appendectomy, Right shoulder. - Social History Smoking Status: Former smoker Smokeless Tobacco Status: No Alcohol use: none Drug use: none - Family History Father Adopted: No Family Member Ethnicity: Non- Living Status: Hx Family Cardiac Disorders: No Hx Family Respiratory Disorders: Yes (Asbestosis) Hx Family Cancer: Yes (Lung CA) Hx Family GI Disorders: No Hx Family Endocrine Disorder: No Hx Family Neuromuscular Disorders: No Hx Family Neurologic Disorders: No Hx Family HEENT Disorders: No Hx Family Autoimmune Disorders: No Medications and Allergies Acetylcysteine [X-Jipubx-l-Cysteine] 600 mg PO TIDAC 05/17/18 [History] Amitriptyline HCl 100 mg PO DAILY 05/17/18 [History] Aspirin [Ecotrin] 325 mg PO DAILY 05/17/18 [History] Atorvastatin Calcium [Lipitor] 20 mg PO HS 05/17/18 [History] FLUoxetine HCl [Prozac] 20 mg PO DAILY 05/17/18 [History] Finasteride [Proscar] 5 mg PO DAILY 05/17/18 [History] Fish Oil/Dha/Epa [Fish Oil 1,200 mg Fish Oil] 1 cap PO DAILY 05/17/18 [History] Fluticasone Propionate Nasal [Flonase] 1 spr NS DAILY 05/17/18 [History] Fluticasone/Salmeterol [Advair Hfa 230-21 Mcg Inhaler] 1 puff IH DAILY 05/17/18 [History] Levothyroxine [Synthroid] [place] [address]/17/18 [History] Lisinopril [Zestril] 10 mg PO DAILY 05/17/18 [History] Loratadine [Claritin] 10 mg PO DAILY 05/17/18 [History] Lutein 20 mg PO DAILY 05/17/18 [History] Metformin HCl [Glucophage] 1,000 mg PO BID 05/17/18 [History] Metoprolol [Lopressor] 25 mg PO BID 05/17/18 [History] Pioglitazone [Actos] 15 mg PO DAILY 05/17/18 [History] SitaGLIPtin [Januvia] 100 mg PO DAILY 05/17/18 [History] Umeclidinium Gould [Incruse Ellipta] 62.5 mcg IH DAILY 05/17/18 [History] Vit A/Vit C/Vit E/Zinc/Copper [Preservision Areds Tablet] 1 tab PO DAILY [History] Warfarin [Coumadin] 6 mg PO [id number] 05/17/18 [History] Warfarin [Coumadin] 9 mg PO TH 05/17/18 [History] Ipratropium/Albuterol Neb [Duoneb] 3 ml IH Q6HR 06/01/18 [History] Polyethylene Glycol 3350 [MiraLAX] 17 gm PO DAILY PRN 06/01/18 [History] Furosemide [Lasix] 40 mg PO BIDDIURETIC tablet 06/15/18 [Rx] Gabapentin [Neurontin] 600 mg PO TID #15 tablet 06/15/18 [Rx] Insulin DETEMIR [Levemir] 20 unit SQ BID [id number] 06/15/18 [Rx] 3 Allergy/AdvReac Type Severity Reaction Status Date / Time No Known Allergies Allergy Verified 05/17/18 20:27 All Systems Review: The remainder of the systems were reviewed and are negative Physical Examination Vital Signs, Last 4 Hours Temp Pulse Resp BP Pulse Ox 06/22/18 12:07 98.3 F 92 16 121/71 96 General: Conversant HEENT: Atraumatic Neck: No JVD Cardiac: Other (Irregularly irreular) Lungs: No Wheeze, Rales, Rhonchi, Other (Respirations labored with conversation , lungs diminished) Results 06/22/18 01:02 06/22/18 01:02 Lab Results 06/22/18 06/22/18 06/22/18 01:02 01:02 01:02 WBC 8.6 Hgb 10.5 L Hct 33.4 L Plt Count 185 INR 2.5 Sodium 132 L Potassium 4.1 Chloride 101 Carbon Dioxide 24 BUN 9 Creatinine 1.04 Glucose 115 H Calcium 8.[address] 06/17/18 15:35 IMPRESSION: No acute intracranial abnormality. D/ / Donovan Magaña / Donovan Magaña Interpreting Provider: Donovan Magaña Chest CTA 06/17/18 15:58 IMPRESSION: 1. Respiratory motion artifact limits evaluation of the segmental pulmonary artery branches. Previously noted nonocclusive filling defect within the right basilar segmental pulmonary artery branch is not appreciated on this study. No clear evidence of pulmonary emboli otherwise, especially within the central vessels. 2. Moderate to large right pleural effusion, slightly increased from the prior study. Small left pleural effusion. Large area of atelectasis or consolidation involving a large portion of the right lower lobe. Additional atelectasis or consolidation at the left lung base and lingula. 3. Mild to moderate cardiomegaly. Trace pericardial effusion, improved from the prior study. D/ / 06/17/2018 18:47:16 Mark Trejo MD / [email or web address] Interpreting Provider: Mark Trejo MD Echocardiogram 06/18/18 10:56 Impressions: Technically challenging due to suboptimal echocardiographic windows; body habitus, poor positioning and elevated heart rates. Atrial fibrillation with RVR. LV systolic function appears low normal to mildly reduced but windows are not optimal even with use of Definity. Indeterminate diastolic function. RV is not optimally seen or evaluated. Mild tricuspid regurgitation. Mild pulmonic regurgitation. No pulmonary hypertension based on TR signal that may not have been well obtained. Recommend repeat study when clinical status improves. Left Ventricular Wall Motion: Rest Echo Findings The apex, apical inferior, mid inferior, basal inferior, apical anterior, mid anterior, basal anterior, apical septal, mid inferior septal, basal inferior septal, apical lateral, mid anterior lateral, basal anterior lateral, mid anterior septal, mid inferior lateral, basal anterior septal and basal inferior lateral scott were hypokinetic. Findings: Study Quality * Technically challenging due to suboptimal echocardiographic windows; body habitus, poor positioning and elevated heart rates. ECG Findings * Atrial fibrillation with RVR. Left Ventricle * LV systolic function appears low normal to mildly reduced. * Indeterminate diastolic function. * There is no LV thrombus. * Definity echo contrast was used. Right Ventricle * RV is not optimally seen or evaluated. Left Atrium * Left atrium is not well visualized. Right Atrium * Right atrium is not well visualized. Aortic Valve * No aortic regurgitation. * Trileaflet aortic valve. * No aortic stenosis. Mitral Valve * No mitral regurgitation. * Mitral valve not well visualized. * No mitral stenosis. Tricuspid Valve * Tricuspid valve not well visualized. * Mild tricuspid regurgitation. * Estimated RA pressure is 3 mmHg. * Estimated RVSP is 28 mmHg. * No pulmonary hypertension based on TR signal that may not have been optimally obtained. Pulmonic Valve * Pulmonic valve is not well visualized. * No pulmonic stenosis. * Mild pulmonic regurgitation. Pulmonary Artery * Pulmonary artery not well visualized. Aorta * Not optimally visualized. Pericardium * There is no pericardial effusion present. Interatrial Septum * No evidence of PFO by color Doppler. IVC * Normal IVC dimensions and inspiratory collapse. Retroperitoneum Ultrasound 06/18/18 14:00 IMPRESSION: The kidneys are not obstructed. Bilateral renal cysts. D/ / 06/18/2018 15:18:18 Andres Jones MD / trini Interpreting Provider: Andres Jones MD Chest X-Ray 06/20/18 11:38 IMPRESSION: No pneumothorax. Small bilateral pleural effusions with overlying atelectasis/ infiltrate, similar to the previous chest radiograph. D/ / Roger Tracey MD / Roger Tracey MD Interpreting Provider: Roger Tracey MD - Imaging and Cardiology Chest Xray: report reviewed Echo: report reviewed - EKG Interpretation EKG results cardiology: personally reviewed Consult Discharge Plan - Plan Referrals: Shayy Rodgers MD [Primary Care Provider] - <Homero Meyer - Last Filed: 06/22/18 16:16> Date of Encounter: 06/22/18 - Attending Attestation I have personally performed a face to face evaluation on this patient. I have reviewed and agree with the care plan. History and Exam by me shows: Multiple medical problems. From cardiac standpoint AF, tachy-donna S/P pacer, diastolic dysfunction. Fairly stable from cardiac standpoint but could use continued diuresis. Assessment and Plan Discussion w patient/family: The assessment and plan as outlined above was discussed with the patient and/or family members who expressed understanding and agreement. All questions were answered. Thank you for involving us in the care of your patient. Please call with any questions. History of Present Illness History of present illness: Mr. Doe is a 78 year old male All Systems Review: The remainder of the systems were reviewed and are negative Results 06/22/18 01:02 06/22/18 01:02 Lab Results 06/22/18 06/22/18 06/22/18 01:02 01:02 01:02 WBC 8.6 Hgb 10.5 L Hct 33.4 L Plt Count 185 INR 2.5 Sodium 132 L Potassium 4.1 Chloride 101 Carbon Dioxide 24 BUN 9 Creatinine 1.04 Glucose 115 H Calcium 8.3 L
[2018-06-22] MEDS ORDERED: levoFLOXacin 750 MG TABLET PO SCH (18:00)
[2018-06-22] MEDS ORDERED: *HR* Warfarin 4 MG TABLET PO ONE (18:00)
[2018-06-22] MEDS: Furosemide 40 MG TABLET PO SCH (21:28)
[2018-06-23] MEDS: Ipratropium/Albuterol Neb 3 ML IH SCH ×3 (04:48→11:26)
[2018-06-23 06:40] LABS: Basophils % 0.1 %; Eosinophils # 0.3 K/mcL (0.0-0.6); Eosinophils % 4.6 %; Hematocrit 32.8 % (37.5-50.1); Hemoglobin 10.2 g/dL (12.9-16.9); Immature Granulocytes % 0.4 % (0-4); Lymphocytes % 13.9 %; Mean Corpuscular HGB Conc 31.1 g/dL (31.6-35.5); Mean Corpuscular Volume 90.1 fL (83.0-100.0); Mean Platelet Volume 9.7 fL (9.4-12.4); Monocytes # 0.7 K/mcL (0.0-1.3); Monocytes % 9.8 %; Neutrophils # 4.9 K/mcL (1.6-8.9); Platelet Count 235 K/mcL (140-400); Red Blood Count 3.64 M/mcL (4.19-5.50); Red Cell Distribution Width 17.1 % (11.5-14.5); Segmented Neutrophils % 71.2 %
[2018-06-23 06:47] LABS: INR 3.4; Prothrombin Time 38.5 Seconds (9.4-12.1)
[2018-06-23 07:21] VITALS: BP 105/79
[2018-06-23] MEDS: Acetylcysteine 10% 2 ML INHSOL IH SCH (07:59)
[2018-06-23] MEDS: Finasteride 5 MG TABLET PO SCH (08:02)
[2018-06-23] MEDS: Furosemide 40 MG TABLET PO SCH (08:02)
[2018-06-23] MEDS: Insulin LISPRO 300 UNITS/3 ML VIAL SQ SCH (08:03)
[2018-06-23] MEDS: Clotrimazole 1% CRM 15 GM TUBE TP SCH (08:03)
--- NOTE | 2018-06-23 15:45 | Internal Med Progress Note ---
Hospitalist Progress Note - Encounter Date of Encounter: 06/23/18 Time of Encounter: 07:30 - Subjective Interval History: Mr. Doe is a 78 year old male with history of diastolic heart failure, pulmonary embolism, atrial fibrillation on Coumadin and recent hospitalization for pneumonia presented to the emergency department for near syncope. was found to be in septic shock secondary HAP. he was managed in the ICU for two days and transferred to floor for further care. Today he is doing fine, denies fever, reports that his palpitations have resolved, denies chest pain, nausea, vomiting, diarrhea. is working with PT currently, agrees with returning to rehab for further rehabilitation this morning- at bedside his breathing has improved drastically reports that appetite has gotten better denies fever, chills, palpitations, N/V/D, cough. - Exam Vitals: Temp Pulse Resp BP Pulse Ox 97.7 F 93 24 105/79 91 06/23/18 07:15 06/23/18 07:15 06/23/18 07:58 06/23/18 07:15 06/23/18 07:58 Exam: General: Patient is alert, oriented, no acute distress, morbidly obese, speaks in full sentences Head: atraumatic, normocephalic, Eye: normal appearance, PERRL, no scleral icterus, no conjunctival injection, left pupil is slightly more enlarged than the right from previous cataract surgery ENT: dry, membranes moist, normal external ear exam, poor dentition, no oral secretions Neck: normal inspection, trachea midline, full ROM, no carotid bruits, previous IJ site is covered with clean dressing Chest: normal inspection, symmetric chest rise, gynacomastia Respiratory: decreased breath sounds bilaterarily secondary to body habitus, absent breath shound on the Right MAL, negative for egophoney, crackles at the left MAL , no accessory muscle use Cardiovascular: Distant heart sounds secondary to body habitus, irregular, s1 and s2 No clicks or murmors. Abdomen: Bowel sounds present normoactive x-4 quadrants. Abdomen is soft, nondistended. no Epigastric tenderness. No guarding or rebound. No organomegaly noted, obese, has RUQ scar that is well healed musculoskeletal: Spontaneously moving all extremities. strength is 5/5, trace edema, no calf tenderness Skin: warm, dry, intact. left leg from ankle to knee has redness and erythema with distinct border Neuro: Alert and oriented x4. Sensation light touch intact. Cranial nerves 2- 12 is intact. Not aphasic, gait defered Psych: Patient's affect is normal - Assessment and Plan (1) Septic shock Status: Resolved Assessment and Plan: Status post vasopressors in the ICU Central line has been removed site remains covered with clean dressing Blood pressure and heart rate have improved We will continue current management (2) HAP (hospital-acquired pneumonia) Status: Acute Assessment and Plan: Multiple hospitalizations recently - Discharged on 05/30 for bilateral pneumonia and PE, Discharged on 06/15 for acute CHF exacerbation with pleural effusions. Blood PCR + for Enter/Rhinovirus. Urine antigens negative for Legionella and Strep. Sputum cx- normal respiratory julian CTA + for RLL atelectasis versus consolidation Leukocytosis is nearly resolved now 12.0 Patient is afebrile. Currently on 3L NC at 95%. Currently on Levaquin will continue for total duration Abx of of [address] aden's recs - currently day 5 of 8 Continue Duonebs every 4 hours as needed. Continue CPAP/BiPAP PRN. (3) Acute and chronic respiratory failure with hypoxia Status: Acute Assessment and Plan: multifactorial, suspect large right sided pleural effusion, acute CHF, and HCAP to be contributing. CTA + for moderate to large right sided pleural effusion increased from prior BNP 109 Blood PCR + for Entero/Rhinovirus, urine antigens negative, sputum cultures negative s/p thoracocentesis on 06/20/18- cx of the pleural fluid - no growth - prelim (4) Atrial fibrillation with RVR Status: Acute Assessment and Plan: Most likely secondary to septic shock INR 3.5 today. for NH to hold night dose of coumadina dn repeat INR in the AM Was on an amiodarone drip in ICU for rhythm controlled - now discontinued - HR controlled transferred to the floor on home dose metoprolol 25 twice a day.- We will titrate up as per heart rate and blood pressure permits cardiology recs appreciated (5) Pleural effusion Status: Acute Assessment and Plan: s/p thoracocentesis on 06/20/18. no growth in prelim. results will follow cytology hemorrhagic tap on coumadin with H/H stable for 48 hrs will continue OAC as risks outweight benefits (6) Pulmonary embolism Status: Chronic Assessment and Plan: sub segmental PE on coumadin now INR sub therapeutic 1.9- bridged with lovenox follow INR in the AM to follow up with pulmonology as OP needs to have repeat CT chest in 1-2 months (7) Diastolic CHF, acute on chronic Status: Acute Assessment and Plan: TTE on 06/01/18 with LVEF 50% and no evidence of thrombus We will continue metoprolol 06/19/18 TTE was repeated to see the degree of diastolic CHF, suboptimal study will repeat imaging once heartrate is more controlled will get repeat TTE today as HR is more controlled cardiology recs appreciated started on lasix home dose (8) Morbid obesity Status: Chronic Assessment and Plan: Water Meter Reader is on board DVT Prophylaxis: as per above - Time Spent with Patient Total time spent is greater than 50% in coordination of care (as documented) at patient's floor/unit and/or counseling patient: Plan of Care Discussed with: patient Internal Medicine: Result - Labs CBC & Chem 7: 06/23/18 05:38 06/22/18 01:02 Labs: Short CBC 06/23/18 Range/Units 05:38 WBC 6.9 (4.3-11.1) K/mcL Hgb 10.2 L (12.9-16.9) g/dL Hct 32.8 L (37.5-50.1) % Plt Count 235 (140-400) K/mcL Neutrophils # 4.9 (1.6-8.9) K/mcL - ABG Interpretation ABG results: ABG ABG pH 7.42 pH Units (7.32-7.45) 06/18/18 04:25 ABG pCO2 37 mmHg (35-45) 06/18/18 04:25 ABG pO2 93 mmHg (85-104) 06/18/18 04:25 ABG O2 Saturation 98 % (95-98) 06/18/18 04:25 PT/INR, D-dimer PT 38.5 Seconds (9.4-12.1) H 06/23/18 05:38 D-Dimer 3768 ng/mLFEU (0-500) H 06/17/18 15:30 Consult Discharge Plan - Plan Instructions: Heart Failure (DC), Atrial Fibrillation (DC), Acute Respiratory Distress Syndrome (DC) Referrals: Christi Martinez MD [Partnered Physician] - Shayy Rodgers MD [Primary Care Provider] - Homero Meyer MD [Partnered Physician] - Prescriptions: Aspirin [Ecotrin] 81 mg PO DAILY 30 Days #30 tablet.dr Clotrimazole 1% CRM [Lotrimin 1%] 1 appl TP BID #2 tube levoFLOXacin [Levaquin] 750 mg PO Q24H #3 tablet Omeprazole 20 mg PO DAILY 30 Days #30 tablet.dr (6) Pulmonary embolism Qualifiers: Pulmonary embolism type: other Chronicity: unspecified Acute cor pulmonale presence: without acute cor pulmonale Qualified Code(s): I26.99 - Other pulmonary embolism without acute cor pulmonale
== END 2018-06-23 11:27 | DRG 871 ==
LOC: EMEROO 15:21 → ICNU 20:45 → 2NENU 06-19 10:48
PROVIDERS: ADMIT Internal Medicine; ATTEND Internal Medicine

== ENCOUNTER 2018-06-28 23:14 | Observation (INO) ==
[2018-06-28] MEDS ORDERED: Ipratropium/Albuterol Neb 3 ML IH ONE (23:22)
[2018-06-28] MEDS ORDERED: methylPREDNISolone 125 MG/2 ML VIAL IVP ONE (23:22)
--- NOTE | 2018-06-28 23:23 | Emergency Department Note ---
Disposition Clinical Impression: Acute exacerbation of chronic obstructive airways disease Disposition: Admitted As Inpatient Referrals: Shayy Rodgers MD [Primary Care Provider] - Forms: ED Satisfaction Letter Time of Disposition: 02:35 SOB HPI - General Chief Complaint: ED Shortness of Breath/Dyspnea Stated Complaint: ANCA Time Seen by Provider: 06/28/18 23:21 Source: patient, EMS Mode of arrival: EMS Limitations: no limitations Nursing Notes Reviewed: Yes Vital Signs Reviewed: Yes - History of Present Illness Patient is an 78-year-old male with past medical history of hypertension, COPD, A. fib, diabetes, GERD. Not currently on any blood thinners according to the patient. [facility] due to concern for dyspnea , hypoxia. Patient states that he is usually on 3 L nasal cannula oxygen chronically at baseline. Over the past few days, he has had shortness of breath and cough above his baseline. Denies any fevers, nausea, vomiting, diarrhea, abdominal pain. Denies any falls. EMS had stated that patient was oriented to person only on the way in, was found to be satting 88% on 3 L when they arrived prison. Patient was satting around 92% upon arrival while on 4 L nasal cannula - Related Data Home Medications Medication Instructions Recorded Confirmed Acetylcysteine 600 mg PO TIDAC 05/17/18 06/18/18 [N-Seuocx-c-Cysteine] Amitriptyline HCl 100 mg PO DAILY 05/17/18 06/18/18 Atorvastatin Calcium [Lipitor] 20 mg PO HS 05/17/18 06/18/18 FLUoxetine HCl [Prozac] 20 mg PO DAILY 05/17/18 06/18/18 Finasteride [Proscar] 5 mg PO DAILY 05/17/18 06/18/18 Fish Oil/Dha/Epa [Fish Oil 1,200 1 cap PO DAILY 05/17/18 06/18/18 mg Fish Oil] Fluticasone Propionate Nasal 1 spr NS DAILY 05/17/18 06/18/18 [Flonase] Fluticasone/Salmeterol [Advair Hfa 1 puff IH DAILY 05/17/18 06/18/18 230-21 Mcg Inhaler] Levothyroxine [Synthroid] [place] [address]/17/18 06/18/18 Loratadine [Claritin] 10 mg PO DAILY 05/17/18 06/18/18 Lutein 20 mg PO DAILY 05/17/18 06/18/18 Metformin HCl [Glucophage] 1,000 mg PO BID 05/17/18 06/18/18 Metoprolol [Lopressor] 25 mg PO BID 05/17/18 06/18/18 SitaGLIPtin [Januvia] 100 mg PO DAILY 05/17/18 06/18/18 Umeclidinium [place] [Incruse 62.5 mcg IH DAILY 05/17/18 06/18/18 Ellipta] Vit A/Vit C/Vit E/Zinc/Copper 1 tab PO DAILY 05/17/18 06/18/18 [Preservision Areds Tablet] Warfarin [Coumadin] 6 mg PO SUMOTUWEFRSA 05/17/18 06/18/18 Warfarin [Coumadin] 9 mg PO TH 05/17/18 06/18/18 Ipratropium/Albuterol Neb [Duoneb] 3 ml IH Q6HR 06/01/18 06/18/18 Polyethylene Glycol 3350 [MiraLAX] 17 gm PO DAILY PRN 06/01/18 06/18/18 Previous Rx's Medication Instructions Recorded Furosemide [Lasix] 40 mg PO BIDDIURETIC tablet 06/15/18 Gabapentin [Neurontin] 600 mg PO TID #15 tablet 06/15/18 Insulin DETEMIR [Levemir] 20 unit SQ BID [id number] 06/15/18 Aspirin [Ecotrin] 81 mg PO DAILY 30 Days #30 06/22/18 tablet. Clotrimazole 1% CRM [Lotrimin 1%] 1 appl TP BID #2 tube 06/22/18 Omeprazole 20 mg PO DAILY 30 Days #30 06/22/18 tablet. levoFLOXacin [Levaquin] 750 mg PO Q24H #3 tablet 06/22/18 Allergies Allergy/AdvReac Type Severity Reaction Status Date / Time No Known Allergies Allergy Verified 05/17/18 20:27 All systems ED: reviewed and negative except as stated. Constitutional: Denies: fever Cardiovascular: Denies: chest pain Respiratory: Reports: cough, dyspnea Gastrointestinal: Denies: abdominal pain, nausea, vomiting, diarrhea Genitourinary: Denies: urgency, dysuria Integumentary: Denies: rash Neurological: Denies: headache, weakness, numbness, paresthesias Past Medical History - Past Medical History Attestation: Yes The following information was validated with the patient. Source: patient Medical history: Reports: arthritis, atrial fibrillation, COPD, diabetes, GERD, hyperlipidemia, hypertension, thyroid disease, other Surgical history: Reports: cholecystectomy, knee replacement, orthopedic, other , pacemaker Psychiatric history: Reports: no psych history - Social History Smoking Status: Former smoker Smokeless Tobacco Status: No Alcohol use: Reports: none Drug use: Reports: none Physical Exam - General Limitations: no limitations General appearance: alert, in distress (Mild respiratory) - Head Head exam: atraumatic, normocephalic, normal inspection - Eye Eye exam: Present: normal appearance, PERRL, EOMI - ENT ENT exam: normal exam, normal oropharynx, mucous membranes moist - Neck Neck exam: Present: normal inspection, full ROM, trachea midline - Chest Chest inspection: Present: normal inspection, symmetric chest wall rise - Respiratory Respiratory exam: Present: other (Decreased lung sounds and wheezes throughout.) - Cardiovascular Cardiovascular exam: Present: tachycardia, irregular rhythm, normal heart sounds - Abdominal Exam Abdominal exam: Present: soft, Non-Tender. Absent: tenderness, distention, guarding, rebound, rigidity - Extremities Exam Extremities exam: Present: full ROM, other (Marked venous stasis dermatitis area of the left anterior keating). Absent: tenderness, pedal edema - Neurological Exam Neurological exam: Present: alert, oriented X3 - Psychiatric Psychiatric exam: Present: normal affect, normal mood - Skin Skin exam: Present: warm, dry, intact, normal color Course Course Narrative: Patient was in mild to moderate respiratory distress upon arrival. 2. Use of accessory muscles. Decreased breath sounds and wheezing throughout. Patient was agreeable with trying BiPAP at this time. We will give the patient DuoNeb 3, Solu-Medrol, obtain EKG, chest x-ray, troponin, urinalysis. 02:30 chest x-ray shows no acute cardio pulmonary process. Unchanged pleural effusions and hazy opacities of the bilateral lower lobes. Troponin 0.20. No current chest discomfort. EKG showed no acute ST changes. No major lab abnormality other than elevated troponin level. Patient tolerated tolerating BiPAP well. Heart rate was in the 130s on presentation, given Lopressor 5 mg to reduce heart rate. Aspirin 325 mg given due to elevated troponin level. Pending PT/INR. Accepted by hospitalist Dr. Mcclendon. Chest X-Ray 06/28/18 23:21 IMPRESSION: No substantial change in pleural effusions and hazy opacity within the lung bases. D/ / Mya Blount MD / Mya Blount MD Interpreting Provider: Mya Blount MD Vital Signs Temperature 98.6 F 06/28/18 23:19 Pulse Rate 135 06/28/18 23:19 Respiratory Rate 22 06/28/18 23:19 Blood Pressure 112/78 06/28/18 23:19 O2 Sat by Pulse Oximetry 94 06/28/18 23:19 Temperature 98.6 F 06/28/18 23:19 Pulse Rate 133 06/29/18 00:51 Respiratory Rate 26 06/29/18 00:51 Blood Pressure 109/63 06/29/18 00:51 O2 Sat by Pulse Oximetry 96 06/29/18 00:51 Oxygen Delivery Oxygen Delivery Bipap Shortness of Breath/Dyspnea - MDM Narrative Medical decision making narrative: Patient was in mild to moderate respiratory distress upon arrival. 2. Use of accessory muscles. Decreased breath sounds and wheezing throughout. Patient was agreeable with trying BiPAP at this time. We will give the patient DuoNeb 3, Solu-Medrol, obtain EKG, chest x-ray, troponin, urinalysis. 02:30 chest x-ray shows no acute cardio pulmonary process. Unchanged pleural effusions and hazy opacities of the bilateral lower lobes. Troponin 0.20. No current chest discomfort. EKG showed no acute ST changes. No major lab abnormality other than elevated troponin level. Patient tolerated tolerating BiPAP well. Heart rate was in the 130s on presentation, given Lopressor 5 mg to reduce heart rate. Aspirin 325 mg given due to elevated troponin level. Pending PT/INR. Accepted by hospitalist Dr. Mcclendon. - Medical Records Medical records reviewed: Yes I reviewed the patient's medical records. - Lab Data Lab results reviewed: Yes I reviewed the patient's lab results. Result diagrams: 06/28/18 23:21 06/28/18 23:21 Lab Results 08/08/0706/28/18 06/28/18 Range/Units 23:21 23:21 23:21 WBC 8.7 (4.3-11.1) K/mcL RBC 4.05 L (4.19-5.50) M/mcL Hgb 11.7 L (12.9-16.9) g/dL Hct 37.1 L (37.5-50.1) % MCV 91.6 (83.0-100.0) fL MCH 28.9 (28.0-33.3) pg MCHC 31.5 L (31.6-35.5) g/dL RDW 17.2 H (11.5-14.5) % Plt Count 450 H D (140-400) K/mcL MPV 9.1 L (9.4-12.4) fL Immature Gran % 0.9 (0-4) % Seg Neutrophils % 76.4 % Lymphocytes % 12.0 % Monocytes % 9.2 % Eosinophils % 1.3 % Basophils % 0.2 % Neutrophils # 6.6 (1.6-8.9) K/mcL Lymphocytes # 1.0 (0.6-4.6) K/mcL Monocytes # 0.8 (0.0-1.3) K/mcL Eosinophils # 0.1 (0.0-0.6) K/mcL Basophils # 0.0 (0.0-0.2) K/mcL VBG pH (7.32-7.42) pH Units VBG pCO2 (41-51) mmHg VBG pO2 (25-50) mmHg VBG HCO3 (21-27) mEq/L Sodium 135 L (136-145) mEq/L Potassium 3.9 (3.5-5.1) mEq/L Chloride 100 (98-107) mEq/L Carbon Dioxide 22 L (23-29) mEq/L BUN 19 (8-23) mg/dL Creatinine 1.37 H (0.70-1.30) mg/dL Est GFR ( Amer) > 60 (> 60) Est GFR (Non-Af Amer) 50 L (> 60) BUN/Creatinine Ratio 14 (6-26) Glucose 90 (70-105) mg/dL Calculated Osmolality 282 (280-300) Lactic Acid (0.5-2.2) mmol/L Calcium 8.7 (8.6-10.3) mg/dL Troponin I 0.20 H* (< 0.04) ng/mL B-Natriuretic Peptide 152 H (Less than 100) pg/mL 06/28/18 06/28/18 06/29/18 Range/Units 23:30 23:49 01:34 WBC (4.3-11.1) K/mcL RBC (4.19-5.50) M/mcL Hgb (12.9-16.9) g/dL Hct (37.5-50.1) % MCV (83.0-100.0) fL MCH (28.0-33.3) pg MCHC (31.6-35.5) g/dL RDW (11.5-14.5) % Plt Count (140-400) K/mcL MPV (9.4-12.4) fL Immature Gran % (0-4) % Seg Neutrophils % % Lymphocytes % % Monocytes % % Eosinophils % % Basophils % % Neutrophils # (1.6-8.9) K/mcL Lymphocytes # (0.6-4.6) K/mcL Monocytes # (0.0-1.3) K/mcL Eosinophils # (0.0-0.6) K/mcL Basophils # (0.0-0.2) K/mcL VBG pH 7.35 (7.32-7.42) pH Units VBG pCO2 48 (41-51) mmHg VBG pO2 41 (25-50) mmHg VBG HCO3 26 (21-27) mEq/L Sodium (136-145) mEq/L Potassium (3.5-5.1) mEq/L Chloride (98-107) mEq/L Carbon Dioxide (23-29) mEq/L BUN (8-23) mg/dL Creatinine (0.70-1.30) mg/dL Est GFR ( Amer) (> 60) Est GFR (Non-Af Amer) (> 60) BUN/Creatinine Ratio (6-26) Glucose (70-105) mg/dL Calculated Osmolality (280-300) Lactic Acid 3.3 H 2.8 H (0.5-2.2) mmol/L Calcium (8.6-10.3) mg/dL Troponin I (< 0.04) ng/mL B-Natriuretic Peptide (Less than 100) pg/mL - Radiology Data Radiology results reviewed: Yes I reviewed the patient's radiology results. Chest X-Ray 06/28/18 23:21 IMPRESSION: No substantial change in pleural effusions and hazy opacity within the lung bases. D/ / Mya Blount MD / Mya Blount MD Interpreting Provider: Mya Blount MD - EKG Data EKG attestation: Yes I reviewed and interpreted this EKG. EKG results narrative: 07/08/2018 at 23:23. A. fib. Rate 135. QRS 96. QTC 348. Normal axis. No acute ST elevation or depression. S.B.A.R. - S.B.A.R. Situation: Demographics, MOA Background: Presenting Complaint, Relevant PMH, Meds, & Allergies Assessment: Vital Signs, Course and respsone to treatment, Exam Concerns, Patient/Family Expectation, Pertinant Lab Results, Outstanding Labs Recommendation: Barrier(s) to disposition, Recommendation based on pending studies, treatments, or consults S.B.A.R. Report Given to: Dr. Mcclendon
--- NOTE | 2018-06-28 23:32 | Emergency Department Note ---
Disposition Clinical Impression: Acute exacerbation of chronic obstructive airways disease Disposition: Still a Patient Forms: ED Satisfaction Letter General Adult HPI - General Chief complaint: ED Shortness of Breath/Dyspnea Stated complaint: ANCA Time Seen by Provider: 06/28/18 23:21 Source: patient, EMS Limitations: no limitations - History of Present Illness Pain Scale: 0 - Related Data Home Medications Medication Instructions Recorded Confirmed Acetylcysteine 600 mg PO TIDAC 05/17/18 06/18/18 [B-Ghmpnk-i-Cysteine] Amitriptyline HCl 100 mg PO DAILY 05/17/18 06/18/18 Atorvastatin Calcium [Lipitor] 20 mg PO HS 05/17/18 06/18/18 FLUoxetine HCl [Prozac] 20 mg PO DAILY 05/17/18 06/18/18 Finasteride [Proscar] 5 mg PO DAILY 05/17/18 06/18/18 Fish Oil/Dha/Epa [Fish Oil 1,200 1 cap PO DAILY 05/17/18 06/18/18 mg Fish Oil] Fluticasone Propionate Nasal 1 spr NS DAILY 05/17/18 06/18/18 [Flonase] Fluticasone/Salmeterol [Advair Hfa 1 puff IH DAILY 05/17/18 06/18/18 230-21 Mcg Inhaler] Levothyroxine [Synthroid] [place] [address]/17/18 06/18/18 Loratadine [Claritin] 10 mg PO DAILY 05/17/18 06/18/18 Lutein 20 mg PO DAILY 05/17/18 06/18/18 Metformin HCl [Glucophage] 1,000 mg PO BID 05/17/18 06/18/18 Metoprolol [Lopressor] 25 mg PO BID 05/17/18 06/18/18 SitaGLIPtin [Januvia] 100 mg PO DAILY 05/17/18 06/18/18 Umeclidinium [place] [Incruse 62.5 mcg IH DAILY 05/17/18 06/18/18 Ellipta] Vit A/Vit C/Vit E/Zinc/Copper 1 tab PO DAILY 05/17/18 06/18/18 [Preservision Areds Tablet] Warfarin [Coumadin] 6 mg PO SUMOTUWEFRSA 05/17/18 06/18/18 Warfarin [Coumadin] 9 mg PO TH 05/17/18 06/18/18 Ipratropium/Albuterol Neb [Duoneb] 3 ml IH Q6HR 06/01/18 06/18/18 Polyethylene Glycol 3350 [MiraLAX] 17 gm PO DAILY PRN 06/01/18 06/18/18 Previous Rx's Medication Instructions Recorded Furosemide [Lasix] 40 mg PO BIDDIURETIC tablet 06/15/18 Gabapentin [Neurontin] 600 mg PO TID #15 tablet 06/15/18 Insulin DETEMIR [Levemir] 20 unit SQ BID [id number] 06/15/18 Aspirin [Ecotrin] 81 mg PO DAILY 30 Days #30 06/22/18 tablet. Clotrimazole 1% CRM [Lotrimin 1%] 1 appl TP BID #2 tube 06/22/18 Omeprazole 20 mg PO DAILY 30 Days #30 06/22/18 tablet. levoFLOXacin [Levaquin] 750 mg PO Q24H #3 tablet 06/22/18 Allergies Allergy/AdvReac Type Severity Reaction Status Date / Time No Known Allergies Allergy Verified 05/17/18 20:27 Past Medical History - Past Medical History Medical history: Reports: arthritis, atrial fibrillation, COPD, diabetes, GERD, hyperlipidemia, hypertension, thyroid disease, other Surgical history: Reports: cholecystectomy, knee replacement, orthopedic, other , pacemaker Psychiatric history: Reports: no psych history - Social History Smoking Status: Former smoker Smokeless Tobacco Status: No Alcohol use: Reports: none Drug use: Reports: none Physical Exam - General Limitations: no limitations General appearance: alert, in no apparent distress Course - Reevaluation(s) Reevaluation #1: Attestation note I examined this patient and my medical decision-making was reviewed with the emergency medicine resident. I agree with the documented findings, disposition and treatment plan as described except to the extent set forth below. Patient seen with emergency medicine resident Dr. Dave Ly, Please see a copy of his note for details of the H&P, ED evaluation, management and disposition. I have independently evaluated the patient and confirmed appropriate portions of the history and physical exam. Briefly: 78-year-old male history of COPD brought in by EMS from [facility] facility for altered mental status and dyspnea. Vision was placed on oxygen per EMS and went from the mid 80s saturations to 92%. Patient is alert to person and place however he does appear to be slightly somnolent slightly altered. Per EMS personnel patient is "normally out and about". Patient will get emergent BiPAP DuoNeb screening labs chest x-ray with admission anticipated. Providing 40 minutes critical care service for this patient. Disposition pending Time: 23:30 Vital Signs Temperature 98.6 F 06/28/18 23:19 Pulse Rate 135 06/28/18 23:19 Respiratory Rate 22 06/28/18 23:19 Blood Pressure 112/78 06/28/18 23:19 O2 Sat by Pulse Oximetry 94 06/28/18 23:19 Temperature 98.6 F 06/28/18 23:19 Pulse Rate 135 06/28/18 23:19 Respiratory Rate 22 06/28/18 23:19 Blood Pressure 112/78 06/28/18 23:19 O2 Sat by Pulse Oximetry 94 06/28/18 23:19 Oxygen Delivery Oxygen Delivery Room Air
[2018-06-28 23:52] LABS: VBG HCO3 26 mEq/L (21-27); VBG PCO2 48 mmHg (41-51); VBG PH 7.35 pH Units (7.32-7.42); VBG PO2 41 mmHg (25-50)
[2018-06-29 00:03] LABS: Basophils % 0.2 %; Eosinophils # 0.1 K/mcL (0.0-0.6); Eosinophils % 1.3 %; Hematocrit 37.1 % (37.5-50.1); Hemoglobin 11.7 g/dL (12.9-16.9); Immature Granulocytes % 0.9 % (0-4); Mean Corpuscular HGB Conc 31.5 g/dL (31.6-35.5); Mean Corpuscular Hemoglobin 28.9 pg (28.0-33.3); Mean Corpuscular Volume 91.6 fL (83.0-100.0); Mean Platelet Volume 9.1 fL (9.4-12.4); Monocytes # 0.8 K/mcL (0.0-1.3); Monocytes % 9.2 %; Neutrophils # 6.6 K/mcL (1.6-8.9); Platelet Count 450 K/mcL (140-400); Red Blood Count 4.05 M/mcL (4.19-5.50); Red Cell Distribution Width 17.2 % (11.5-14.5); Segmented Neutrophils % 76.4 %
[2018-06-29 00:12] LABS: BUN/Creatinine Ratio 14 (6-26); Blood Urea Nitrogen 19 mg/dL (8-23); Calcium 8.7 mg/dL (8.6-10.3); Carbon Dioxide 22 mEq/L (23-29); Chloride 100 mEq/L (98-107); Glucose 90 mg/dL (70-105); Osmolality,Calculated 282 (280-300); Potassium 3.9 mEq/L (3.5-5.1); Sodium 135 mEq/L (136-145); eGFR For Non-African Americans 50 (> 60)
[2018-06-29] MEDS ORDERED: *HR* Metoprolol 5 MG/5 ML VIAL IVP ONE ×2 (02:11→05:22)
[2018-06-29] MEDS ORDERED: Aspirin 325 MG TABLET PO ONE (02:32)
[2018-06-29 02:52] LABS: INR 2.6; Prothrombin Time 29.4 Seconds (9.4-12.1)
[2018-06-29 02:55] LABS: Activated Partial Thrombo Time 43.4 Seconds (26.0-36.0)
[2018-06-29] MEDS ORDERED: Ipratropium/Albuterol Neb 3 ML ONE (04:01)
[2018-06-29] MEDS: Ipratropium/Albuterol Neb 3 ML IH SCH ×4 (04:05→22:56)
[2018-06-29] MEDS ORDERED: Naloxone 0.4 MG/ML INJ IVP PRN (04:56)
[2018-06-29] MEDS ORDERED: Dextrose Gel 15 GM/37.5 ML TUBE PO PRN ×2 (05:15)
[2018-06-29] MEDS ORDERED: D5% in Water 1,000 ML IVC PRN (05:15)
[2018-06-29] MEDS ORDERED: *HR* Dextrose 50 % in Water (Syg) 50 ML SYRINGE IVP PRN (05:15)
[2018-06-29 06:20] LABS: Hematocrit 34.6 % (37.5-50.1); Hemoglobin 10.7 g/dL (12.9-16.9); Mean Corpuscular HGB Conc 30.9 g/dL (31.6-35.5); Mean Corpuscular Hemoglobin 27.9 pg (28.0-33.3); Mean Corpuscular Volume 90.1 fL (83.0-100.0); Mean Platelet Volume 9.1 fL (9.4-12.4); Platelet Count 412 K/mcL (140-400); Red Blood Count 3.84 M/mcL (4.19-5.50); Red Cell Distribution Width 17.3 % (11.5-14.5)
[2018-06-29 06:41] LABS: BUN/Creatinine Ratio 16 (6-26); Blood Urea Nitrogen 22 mg/dL (8-23); Calcium 8.6 mg/dL (8.6-10.3); Carbon Dioxide 20 mEq/L (23-29); Chloride 100 mEq/L (98-107); Glucose 168 mg/dL (70-105); Osmolality,Calculated 283 (280-300); Potassium 4.4 mEq/L (3.5-5.1); Sodium 133 mEq/L (136-145); eGFR For Non-African Americans 50 (> 60)
--- NOTE | 2018-06-29 07:06 | Internal Med History&Physical ---
Date of Encounter: 06/29/18 Time of Encounter: 04:30 Internal Medicine - H&P: HPI Chief complaint: COPD exacerbation Admitted From: Home Plans for Post Hospital Care: Home History of present illness: Mr. Doe is a 78 year old male Patient [facility] due to concerns of increased shortness of breath and hypoxia. Upon my evaluation patient was on BiPAP and resting, and did not want to answer questions. Family not available at bedside either. Information obtained from prior records. Patient had recently been admitted here a little over a week ago as well. He is chronically on 3 L at home nasal cannula but for the last 3 days he has had increase shortness of breath and cough. He denied fever, nausea, vomiting, diarrhea, abdominal pain and chest pain in the emergency room. EKG showed no acute ST changes but did show of rapid heart rate in the 130s. He received 5 mg of Lopressor in the ER. Troponin was found to be elevated to 0.20, lactic acid was 3.3 initially with an INR of 2.6. He was started on BiPAP in the emergency room and admitted for further management of his COPD exacerbation. Past Med Surg Social Fam HX - Past Medical History Medical history: arthritis, atrial fibrillation, COPD, diabetes, GERD, hyperlipidemia, hypertension, thyroid disease, other Additional medical history: Hypothyroid. Sleep apnea Psychiatric history: no psych history - Past Surgical History Surgical History: cholecystectomy, knee replacement, orthopedic, other, pacemaker Additional surgical history: Gallbladder, bilateral knee replacement, Appendectomy, Right shoulder. - Social History Smoking Status: Former smoker Smokeless Tobacco Status: No Alcohol use: none Drug use: none - Family History Father History Unknown: Yes Adopted: No Family Member Ethnicity: Non- Living Status: Hx Family Cardiac Disorders: No Hx Family Respiratory Disorders: Yes (Asbestosis) Hx Family Cancer: Yes (Lung CA) Hx Family GI Disorders: No Hx Family Endocrine Disorder: No Hx Family Neuromuscular Disorders: No Hx Family Neurologic Disorders: No Hx Family HEENT Disorders: No Hx Family Autoimmune Disorders: No Internal Medicine - H&P: Meds Acetylcysteine [Y-Kxrepg-f-Cysteine] 600 mg PO TIDAC 05/17/18 [History] Amitriptyline HCl 100 mg PO DAILY 05/17/18 [History] Atorvastatin Calcium [Lipitor] 20 mg PO HS 05/17/18 [History] FLUoxetine HCl [Prozac] 20 mg PO DAILY 05/17/18 [History] Finasteride [Proscar] 5 mg PO DAILY 05/17/18 [History] Fish Oil/Dha/Epa [Fish Oil 1,200 mg Fish Oil] 1 cap PO DAILY 05/17/18 [History] Fluticasone Propionate Nasal [Flonase] 1 spr NS DAILY 05/17/18 [History] Fluticasone/Salmeterol [Advair Hfa 230-21 Mcg Inhaler] 1 puff IH DAILY 05/17/18 [History] Levothyroxine [Synthroid] 125 mcg PO 0630 05/17/18 [History] Loratadine [Claritin] 10 mg PO DAILY 05/17/18 [History] Lutein 20 mg PO DAILY 05/17/18 [History] Metformin HCl [Glucophage] 1,000 mg PO BID 05/17/18 [History] Metoprolol [Lopressor] 25 mg PO BID 05/17/18 [History] SitaGLIPtin [Januvia] 100 mg PO DAILY 05/17/18 [History] Umeclidinium [place] [Incruse Ellipta] 62.5 mcg IH DAILY 05/17/18 [History] Vit A/Vit C/Vit E/Zinc/Copper [Preservision Areds Tablet] 1 tab PO DAILY [History] Warfarin [Coumadin] 6 mg PO [id number] 05/17/18 [History] Warfarin [Coumadin] 9 mg PO TH 05/17/18 [History] Ipratropium/Albuterol Neb [Duoneb] 3 ml IH Q6HR 06/01/18 [History] Polyethylene Glycol 3350 [MiraLAX] 17 gm PO DAILY PRN 06/01/18 [History] Furosemide [Lasix] 40 mg PO BIDDIURETIC tablet 06/15/18 [Rx] Gabapentin [Neurontin] 600 mg PO TID #15 tablet 06/15/18 [Rx] Insulin DETEMIR [Levemir] 20 unit SQ BID [id number] 06/15/18 [Rx] Aspirin [Ecotrin] 81 mg PO DAILY 30 Days #30 tablet. 06/22/18 [Rx] Clotrimazole 1% CRM [Lotrimin 1%] 1 appl TP BID #2 tube 06/22/18 [Rx] Omeprazole 20 mg PO DAILY 30 Days #30 tablet. 06/22/18 [Rx] levoFLOXacin [Levaquin] 750 mg PO Q24H #3 tablet 06/22/18 [Rx] Advair Hfa 230-21 Mcg Inhaler 06/29/18 [History] Fluticasone Propionate [Allergy Relief] 15.8 ml NS 06/29/18 [History] Fluticasone/Salmeterol [Advair Hfa 230-21 Mcg Inhaler] 21 mcg IH DAILY 06/29/18 [History] Nac 600 mg PO TIDWM 06/29/18 [History] SitaGLIPtin [Januvia] 100 mg PO DAILY 06/29/18 [History] Umeclidinium [place] [Incruse Ellipta] 62.5 mcg IH 06/29/18 [History] Umeclidinium [place] [Incruse Ellipta] 62.5 mcg IH DAILY 06/29/18 [History] Vit A/Vit C/Vit E/Zinc/Copper [Preservision Areds Tablet] 1 each PO 06/29/18 [ History] 3 Allergy/AdvReac Type Severity Reaction Status Date / Time No Known Allergies Allergy Verified 05/17/18 20:27 All Systems PM: A 10-system review of systems was performed and is negative for pertinent findings except as documented above in the HPI. - Constitutional Vitals: Temp Pulse Resp BP Pulse Ox 99.4 F 128 18 115/68 97 06/29/18 05:10 06/29/18 05:10 06/29/18 05:10 06/29/18 05:10 06/29/18 05:10 General appearance: Present: no acute distress. Absent: cooperative - Head Head exam: Present: normal inspection Additional comments: BiPAP mask applied - Respiratory Respiratory exam: Present: CTAB. Absent: chest wall tenderness, wheezes - Cardiovascular Cardiovascular exam: Present: RRR, tachycardia. Absent: diastolic murmur, systolic murmur - GI/Abdominal GI/Abdominal exam: Present: normal bowel sounds, soft. Absent: tenderness - Extremities Exam Extremities exam: Present: warm, radial pulses palpable and symmetrical. Absent : tenderness Additional comments: Large erythematous patch on the left keating with marker tracing around the perimeter. Present on admission - Neurological Exam Neurological exam: Absent: alert Additional comments: Patient sleeping with BiPAP mask on - Skin Skin exam: Present: dry, erythema, warm Additional comments: Large erythematous patch on the left keating as described above Internal Med - H&P Results - Labs CBC & Chem 7: 06/29/18 05:48 06/29/18 05:48 Labs: Short CBC 06/29/18 Range/Units 05:48 WBC 10.3 (4.3-11.1) K/mcL Hgb 10.7 L (12.9-16.9) g/dL Hct 34.6 L (37.5-50.1) % Plt Count 412 H (140-400) K/mcL BMP 06/29/18 05:48 Sodium 133 L Potassium 4.4 Chloride 100 Carbon Dioxide 20 L BUN 22 Creatinine 1.38 H Glucose 168 H Calcium 8.6 Cardiac Enzymes 06/29/18 Range/Units 05:48 Troponin I < 0.03 (< 0.04) ng/mL - Assessment and plan (1) Acute exacerbation of chronic obstructive airways disease Current Visit: Yes Status: Acute Assessment and plan: Patient was short of breath and hypoxic on his home 3 L of oxygen. Started on BiPAP in the emergency room. Oxygen saturation improved with BiPAP into the high 90s. Patient had elevated lactic acid of 2.8 which likely is related to his hypoxia and will likely improve with BiPAP. Continue BiPAP and oxygen supplementation Continuous pulse oximetry Scheduled breathing treatments Prednisone 40 mg daily (2) Atrial flutter by electrocardiogram Current Visit: Yes Status: Acute Assessment and plan: Patient's EKG from the emergency room showed atrial flutter with a rate in the 130s. He was given 5 mg Lopressor with only slight improvement on rate to the 120s. Repeat EKG on the floor showed continued atrial flutter with a rate of 128. Continue to monitor on telemetry Additional dose of Lopressor given Continue home meds for rate control (3) Hypoxia Current Visit: No Status: Acute Assessment and plan: Improved with BiPAP Continue treatment for COPD exacerbation as above (4) Acute kidney injury Current Visit: No Status: Resolved Assessment and plan: Elevated creatinine of 1.37 in the emergency room. Will try gentle hydration and repeat labs. Patient does have history of CHF so will need to be cautious (5) Diabetes mellitus Current Visit: No Status: Chronic Assessment and plan: Agent takes 20 units of Levemir twice a day at home as well as Januvia and metformin. 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 Likely related to COPD exacerbation Continue to trend troponins radiation monitor (7) DVT prophylaxis Current Visit: No Status: Acute Assessment and plan: Coumadin, patient's INR is currently therapeutic pharmacy to dose - Time Spent With Patient Total time spent is greater than 50% in coordination of care (as documented) at patient's floor/unit and/or counseling patient:
[2018-06-29] MEDS ORDERED: 0.9 % Sodium Chloride 500 ML IVC ONE (07:22)
[2018-06-29 07:35] LABS: INR 3.1; Prothrombin Time 35.3 Seconds (9.4-12.1)
[2018-06-29] MEDS: Insulin LISPRO 300 UNITS/3 ML VIAL SQ SCH ×4 (07:54→20:29)
[2018-06-29] MEDS: predniSONE 20 MG TABLET PO SCH (07:55)
--- NOTE | 2018-06-29 10:42 | Internal Med Progress Note ---
Hospitalist Progress Note - Encounter Date of Encounter: 06/29/18 Time of Encounter: 10:37 - Subjective Interval History: Patient seen and examined at bedside. Patient had no overnight event since admission. Patient was found to be mildly hypoxic at 88% on oxygen at [facility] however was 94% on 4 L in the emergency department. Patient was placed on BiPAP and given IV steroids which have been transitioned to by mouth steroids. Currently patient seen and evaluated on the floor and patient is off BiPAP in no respiratory distress. Patient was in a flutter with RVR in the ER was given 2 doses of IV Lopressor; currently the patient is still slightly tachycardic however I will restart his home metoprolol. Patient is somewhat lethargic but evaluation however does awaken with stimuli and is very appropriate. The patient states that he did not sleep overnight and is simply tired. Patient denies any chest pain or current shortness of breath and is on nasal cannula in no distress. The patient denies any palpitations or any other complaints including nausea, vomiting, abdominal pain. Patient's been afebrile. - Exam Vitals: Temp Pulse Resp BP Pulse Ox 98.1 F 126 18 116/77 89 06/29/18 07:10 06/29/18 07:10 06/29/18 10:14 06/29/18 07:10 06/29/18 10:14 Exam: Constitutional: No acute distress, somnolent but arousable and appropriate Psych: AAO x 3 HEENT: NCAT, EOMI Neck: supple, no JVD Cardio: Irregularly irregular and tachycardic no murmurs appreciated Resp: Patient with faint expiratory wheezing but very good air movement Abd: soft, non tender/non distended, positive bowel sounds, no gaurding/reboud/ ridgitity Extremities: Patient has lower extremity stasis dermatitis more pronounced on the left,no evidence of cellulitis Neuro: no focal deficits appreciated - Assessment and Plan (1) Acute and chronic respiratory failure with hypoxia Current Visit: Yes Status: Acute Assessment and Plan: Patient was hypoxic on home oxygen upon arrival and was placed on BiPAP and given IV steroids -Respiratory status is improved and patient is currently on BiPAP -Maintain oxygen supplementation with nasal cannula -BiPAP/CPAP when necessary and daily at bedtime -Steroids transitioned to by mouth prednisone will continue at 40 mg and wean as appropriate (2) Acute exacerbation of chronic obstructive airways disease Current Visit: Yes Status: Acute Assessment and Plan: Please see above patient was initially given IV steroids and placed on BiPAP -Currently off BiPAP on by mouth steroids -Continue BiPAP/CPAP at nighttime and when necessary (3) Atrial fibrillation with RVR Current Visit: No Status: Acute Assessment and Plan: Patient with atrial fibrillation/atrial flutter with rapid ventricular response on admission -Given 2 doses of IV Lopressor 5 mg with improvement in heart rate -Heart rate elevated this morning -Ordered home Lopressor 25 mg twice a day -May need additional dose of IV Lopressor if remains elevated (4) Acute kidney injury Current Visit: No Status: Resolved Assessment and Plan: Patient with acute kidney injury on presentation serum creatinine was 1.37 -possible prerenal etiology; do not suspect due to decreased effective circulating volume however will monitor volume status as last echo in May 2018 revealed some slightly and low normal LV function however ejection fraction was not reported -Baseline creatinine appears to be around 1.1 -Appears euvolemic now however the patient was given IV fluids and Lasix was held -Creatinine unchanged at 1.38 this morning -IV fluids discontinued we will continue to hold Lasix and evaluate creatinine morning -If creatinine stable may restart the patient's Lasix tomorrow (5) Elevated troponin Current Visit: Yes Status: Acute Assessment and Plan: Patient initially presented with elevated troponin of 0.20 -troponin decreased to less than 0.03 -Suspect this is due to demand ischemia secondary to H of her position with rapid ventricular response which is improved; hypoxia from COPD exacerbation could be a contributing factor as well however this is improved to -Patient is not having chest pain no need to trend further troponins (6) Diabetes mellitus Current Visit: No Status: Chronic Assessment and Plan: Continue home medication regimen -Monitor Accu-Cheks (7) HTN (hypertension) Current Visit: No Status: Chronic Assessment and Plan: Resume metoprolol -Monitor blood pressure (8) Hypothyroid Current Visit: No Status: Chronic Assessment and Plan: Resume home medication (9) KYLEE (obstructive sleep apnea) Current Visit: No Status: Chronic Assessment and Plan: CPAP ordered nightly DVT Prophylaxis: On Coumadin - Time Spent with Patient Total time spent is greater than 50% in coordination of care (as documented) at patient's floor/unit and/or counseling patient: 25 - 35 minutes Plan of Care Discussed with: patient Internal Medicine: Result - Labs CBC & Chem 7: 06/29/18 05:48 06/29/18 05:48 Labs: Short CBC 06/29/18 Range/Units 05:48 WBC 10.3 (4.3-11.1) K/mcL Hgb 10.7 L (12.9-16.9) g/dL Hct 34.6 L (37.5-50.1) % Plt Count 412 H (140-400) K/mcL BMP 06/29/18 05:48 Sodium 133 L Potassium 4.4 Chloride 100 Carbon Dioxide 20 L BUN 22 Creatinine 1.38 H Glucose 168 H Calcium 8.6 Cardiac Enzymes 06/29/18 Range/Units 05:48 Troponin I < 0.03 (< 0.04) ng/mL - ABG Interpretation ABG results: PT/INR, D-dimer PT 35.3 Seconds (9.4-12.1) H 06/29/18 07:02 Consult Discharge Plan - Plan Referrals: Shayy Rodgers MD [Primary Care Provider] - (6) Diabetes mellitus Qualifiers: Diabetes mellitus type: type 2 Diabetes mellitus retirement insulin use: unspecified retirement insulin use status Diabetes mellitus complication status : with unspecified complications Qualified Code(s): E11.8 - Type 2 diabetes mellitus with unspecified complications (7) HTN (hypertension) Qualifiers: Hypertension type: essential hypertension Qualified Code(s): I10 - Essential (primary) hypertension (8) Hypothyroid Qualifiers: Hypothyroidism type: unspecified Qualified Code(s): E03.9 - Hypothyroidism, unspecified
--- NOTE | 2018-06-29 17:33 | Electrocardiograph Report ---
[place] [address] Test Date: 2018-06-28 Pat Name: Natanael Doe Department: 104 Room: 2A Gender: M Compensation Advisor: KEVON : 1940 Requested By: Dave Ly Order Number: [id number] Reading MD: Carolyn Go Measurements Intervals [place] Rate: 135 P: AR: 0 QRS: 31 QRSD: 96 T: 163 QT: 269 QTc: 348 Interpretive Statements ATRIAL FLUTTER/FIBRILLATION WITH RAPID VENTRICULAR RESPONSE NONSPECIFIC ST & T-WAVE ABNORMALITY Electronically Signed On 06-29-2018 17:32:21 EDT by Carolyn Go
--- NOTE | 2018-06-29 17:38 | Electrocardiograph Report ---
[address] [address] Test Date: 2018-06-29 Pat Name: Natanael Doe Department: 112 Room: 2A Gender: Physician Primary Care Sports Medicine: : 1940 Requested By: William Mcclendon Order Number: [id number] Reading MD: Carolyn Go Measurements Intervals [place] Rate: 127 P: [place]: 0 QRS: 30 QRSD: 106 T: 67 QT: 388 QTc: 463 Interpretive Statements ATRIAL FLUTTER/TACHYCARDIA WITH RAPID VENTRICULAR RESPONSE NONSPECIFIC ST & T-WAVE ABNORMALITY ABNORMAL RHYTHM ECG Electronically Signed On 06-29-2018 17:37:02 EDT by Carolyn Go
[2018-06-29] MEDS ORDERED: *HR* Warfarin 3 MG TABLET PO ONE ×2 (18:00)
[2018-06-29] MEDS ORDERED: Warfarin perPT PO PRN (18:00)
[2018-06-29] MEDS: Insulin DETEMIR 100 UNIT/ML X5UNITS SQ SCH (20:09)
[2018-06-30 00:39] LABS: Bacteria,Urine None Seen per hpf (None-Few); Bilirubin,Urine Small (Negative); Blood,Urine Trace (Negative); Clarity,Urine Clear (Clear); Color,Urine Dark Yellow (Yellow); Glucose,Urine (UA) Normal (Normal); Hyaline Casts,Urine None Seen per lpf (None-Few); Ketones,Urine Negative (Negative); Leukocyte Esterase,Urine Negative (Negative); Nitrite,Urine Negative (Negative); Protein,Urine Negative (Neg-Trace); Specific Gravity,Urine 1.015 (1.010-1.025); Squamous Epithelial Cell,Urine Moderate per lpf (None-Few); Urobilinogen,Urine Normal (Normal)
[2018-06-30] MEDS: Ipratropium/Albuterol Neb 3 ML IH SCH ×4 (03:46→23:15)
[2018-06-30 05:51] LABS: INR 4.7; Prothrombin Time 52.5 Seconds (9.4-12.1)
[2018-06-30] MEDS: predniSONE 20 MG TABLET PO SCH (08:12)
[2018-06-30] MEDS: Insulin LISPRO 300 UNITS/3 ML VIAL SQ SCH ×4 (08:12→20:22)
[2018-06-30] MEDS: Finasteride 5 MG TABLET PO SCH (08:12)
[2018-06-30 08:50] LABS: Basophils % 0.1 %; Hematocrit 32.7 % (37.5-50.1); Hemoglobin 10.2 g/dL (12.9-16.9); Immature Granulocytes % 1.5 % (0-4); Lymphocytes # 1.1 K/mcL (0.6-4.6); Mean Corpuscular HGB Conc 31.2 g/dL (31.6-35.5); Mean Corpuscular Hemoglobin 28.6 pg (28.0-33.3); Mean Corpuscular Volume 91.6 fL (83.0-100.0); Mean Platelet Volume 9.8 fL (9.4-12.4); Monocytes # 1.3 K/mcL (0.0-1.3); Monocytes % 9.7 %; Neutrophils # 11.1 K/mcL (1.6-8.9); Platelet Count 398 K/mcL (140-400); Red Blood Count 3.57 M/mcL (4.19-5.50); Red Cell Distribution Width 17.3 % (11.5-14.5); Segmented Neutrophils % 80.7 %
[2018-06-30 08:51] LABS: Calcium 8.6 mg/dL (8.6-10.3); Potassium 3.6 mEq/L (3.5-5.1)
--- NOTE | 2018-06-30 11:28 | Internal Med Progress Note ---
Hospitalist Progress Note - Encounter Date of Encounter: 06/30/18 Time of Encounter: 11:26 - Subjective Interval History: Patient seen and examined at bedside. Overnight the patient developed urinary retention was straight cathed last evening. This morning the patient still had inability to urinate and bladder scan revealed greater than 300 mL of urine. Straight catheter and Hoffman catheter were attempted by RN and were unsuccessful. Urology was counseled to for placement of catheter secondary to acute urinary retention. On evaluation the patient is much more alert today and cooperative. The patient states that he is no longer significant short of breath and feels overall well. Patient denies any chest pain, cough, nausea, vomiting, diarrhea. Patient denies any pain in his lower abdomen. Patient has been afebrile - Exam Vitals: Temp Pulse Resp BP Pulse Ox 97.6 F 78 18 100/64 93 06/30/18 11:04 06/30/18 11:04 06/30/18 11:04 06/30/18 11:04 06/30/18 11:04 Exam: Constitutional: No acute distress, much more alert and awake today Psych: AAO x 3, pleasant and cooperative today Cardio: Irregularly irregular with controlled rate Resp: Significantly increased air exchange, faint expiratory wheezes but greatly improved. Abd: soft, non tender/non distended, positive bowel sounds Extremities: Patient with mild edema in both lower extremities and left extremity with significant stasis dermatitis with no concern for cellulitis currently Neuro: no focal deficits appreciated - Assessment and Plan (1) Acute and chronic respiratory failure with hypoxia Current Visit: Yes Status: Acute Assessment and Plan: Patient was hypoxic on home oxygen upon arrival and was placed on BiPAP and given IV steroids -Respiratory status is improved and patient is currently off BiPAP -Maintain oxygen supplementation with nasal cannula -BiPAP/CPAP when necessary and daily at bedtime -We will wean prednisone to 20 mg daily (2) Acute exacerbation of chronic obstructive airways disease Current Visit: Yes Status: Acute Assessment and Plan: Please see above patient was initially given IV steroids and placed on BiPAP -Currently off BiPAP on by mouth steroids will wean prednisone at 20 mg daily -Continue BiPAP/CPAP at nighttime and when necessary (3) Acute urinary retention Current Visit: Yes Status: Acute Assessment and Plan: Patient developed acute urinary retention with bladder obstruction. -Hoffman unable to be placed by RN -Allergy contacted in consultation for Hoffman placement which was done successfully this morning -Expect hematuria due to obstruction resolution and elevated INR; will monitor -Suspect urinary retention causing renal dysfunction will check BMP in a.m. -Urology recs appreciated -Continue Proscar and Flomax (4) Atrial fibrillation with RVR Current Visit: Yes Status: Acute Assessment and Plan: Patient with atrial fibrillation/atrial flutter with rapid ventricular response on admission -Given 2 doses of IV Lopressor 5 mg with improvement in heart rate -Heart rate controlled overnight and this morning -Continue Lopressor 25 mg twice a day -On Coumadin with pharmacy to dose INR is 4.7 today Coumadin will be held; no active bleeding other than mild hematuria from Hoffman placement (5) Acute kidney injury Current Visit: Yes Status: Resolved Assessment and Plan: Patient with acute kidney injury on presentation serum creatinine was 1.37 -possible prerenal etiology suspected on admission however due to patient's urinary retention I suspect that this is contributing -Baseline creatinine appears to be around 1.1 -Appears euvolemic now however the patient was given IV fluids and Lasix was held -Creatinine 1.4 to this morning -IV fluids discontinued we will continue to hold Lasix and evaluate creatinine morning -We will check BMP in the morning to monitor improvement with Hoffman catheter placement as obstruction is now resolved -If renal function does not improve we will send additionally urinalysis and get a retroperitoneal ultrasound with acute kidney injury workup tomorrow (6) Elevated troponin Current Visit: Yes Status: Acute Assessment and Plan: Patient initially presented with elevated troponin of 0.20 -troponin decreased to less than 0.03 -Suspect this is due to demand ischemia secondary to H of her position with rapid ventricular response which is improved; hypoxia from COPD exacerbation could be a contributing factor as well however this is improved to -Patient is not having chest pain no need to trend further troponins (7) Diabetes mellitus Current Visit: Yes Status: Chronic Assessment and Plan: Continue home medication regimen -Monitor Accu-Cheks (8) HTN (hypertension) Current Visit: Yes Status: Chronic Assessment and Plan: Resume metoprolol -Monitor blood pressure (9) Hypothyroid Current Visit: Yes Status: Chronic Assessment and Plan: Resume home medication (10) KYLEE (obstructive sleep apnea) Current Visit: Yes Status: Chronic Assessment and Plan: CPAP ordered nightly - Time Spent with Patient Total time spent is greater than 50% in coordination of care (as documented) at patient's floor/unit and/or counseling patient: 25 - 35 minutes Plan of Care Discussed with: patient Internal Medicine: Result - Labs CBC & Chem 7: 06/30/18 04:58 06/30/18 04:58 Labs: Short CBC 06/30/18 Range/Units 04:58 WBC 13.7 H (4.3-11.1) K/mcL Hgb 10.2 L (12.9-16.9) g/dL Hct 32.7 L (37.5-50.1) % Plt Count 398 (140-400) K/mcL Neutrophils # 11.1 H (1.6-8.9) K/mcL BMP 06/30/18 04:58 Sodium 135 L Potassium 3.6 Chloride 100 Carbon Dioxide 26 BUN 32 H Creatinine 1.42 H Glucose 143 H Calcium 8.6 Urine 06/29/18 Range/Units 23:31 Urine Color Dark Yellow (Yellow) Urine Clarity Clear (Clear) Urine pH 5.0 (5.0-8.0) pH Units Ur Specific [place] 1.015 (1.010-1.025) Urine Protein Negative (Neg-Trace) mg/dL Urine Glucose (UA) Normal (Normal) mg/dL - ABG Interpretation ABG results: PT/INR, D-dimer PT 52.5 Seconds (9.4-12.1) H* 06/30/18 04:58 Consult Discharge Plan - Plan Referrals: Shayy Rodgers MD [Primary Care Provider] - (7) Diabetes mellitus Qualifiers: Diabetes mellitus type: type 2 Diabetes mellitus correction insulin use: unspecified correction insulin use status Diabetes mellitus complication status : with unspecified complications Qualified Code(s): E11.8 - Type 2 diabetes mellitus with unspecified complications (8) HTN (hypertension) Qualifiers: Hypertension type: essential hypertension Qualified Code(s): I10 - Essential (primary) hypertension (9) Hypothyroid Qualifiers: Hypothyroidism type: unspecified Qualified Code(s): E03.9 - Hypothyroidism, unspecified
--- NOTE | 2018-06-30 11:42 | Urology - Consult Note ---
Date of Encounter: 06/30/18 Time of Encounter: 11:40 - Assessment and Plan (1) Urinary retention Current Visit: Yes Status: Acute Assessment and plan: 78-year-old man with a history of BPH and urinary retention is seen in consultation. I was able to pass an 18-[place] Coude tipped Hoffman catheter. Clear urine returned. He tolerated the procedure well. He is currently on finasteride. We will add on tamsulosin. He can follow up in 1 week for a voiding trial. Please call with any questions. Urology CN:LILIANA Consult date: 06/30/18 Reason for consult Urology: Difficult Hoffman (urinary retention) History of present illness: 78-year-old man was admitted for a COPD exacerbation. In the last 1-2 days he has been having difficulty voiding. They were not able to place a Hoffman catheter and I was consult to assist with that. He reports that prior to this hospital stay he has otherwise had a good flow and feels that he empties well. He urinates 3-4 times per day. He denies any nocturia. He denies any hesitancy. He denied any urgency, urge incontinence, hematuria, or dysuria. He believes his father might have had prostate cancer and had a prostatectomy. Past Med Surg Social Fam HX - Past Medical History Medical history: arthritis, atrial fibrillation, COPD, diabetes, GERD, hyperlipidemia, hypertension, thyroid disease, other Additional medical history: Hypothyroid. Sleep apnea Psychiatric history: no psych history - Past Surgical History Surgical History: cholecystectomy, knee replacement, orthopedic, other, pacemaker Additional surgical history: Gallbladder, bilateral knee replacement, Appendectomy, Right shoulder. - Social History Smoking Status: Former smoker Smokeless Tobacco Status: No Alcohol use: none Drug use: none - Family History Father History Unknown: Yes Adopted: No Family Member Ethnicity: Non- Living Status: Hx Family Cardiac Disorders: No Hx Family Respiratory Disorders: Yes (Asbestosis) Hx Family Cancer: Yes (Lung CA) Hx Family GI Disorders: No Hx Family Endocrine Disorder: No Hx Family Neuromuscular Disorders: No Hx Family Neurologic Disorders: No Hx Family HEENT Disorders: No Hx Family Autoimmune Disorders: No Medications and Allergies Acetylcysteine [W-Ylbrxj-i-Cysteine] 600 mg PO TIDAC 05/17/18 [History] Amitriptyline HCl 100 mg PO DAILY 05/17/18 [History] Atorvastatin Calcium [Lipitor] 20 mg PO HS 05/17/18 [History] FLUoxetine HCl [Prozac] 20 mg PO DAILY 05/17/18 [History] Finasteride [Proscar] 5 mg PO DAILY 05/17/18 [History] Fish Oil/Dha/Epa [Fish Oil 1,200 mg Fish Oil] 1 cap PO DAILY 05/17/18 [History] Fluticasone Propionate Nasal [Flonase] 1 spr NS DAILY 05/17/18 [History] Fluticasone/Salmeterol [Advair Hfa 230-21 Mcg Inhaler] 1 puff IH DAILY 05/17/18 [History] Levothyroxine [Synthroid] 125 mcg PO 0630 05/17/18 [History] Loratadine [Claritin] 10 mg PO DAILY 05/17/18 [History] Lutein 20 mg PO DAILY 05/17/18 [History] Metformin HCl [Glucophage] 1,000 mg PO BID 05/17/18 [History] Metoprolol [Lopressor] 25 mg PO BID 05/17/18 [History] Warfarin [Coumadin] 6 mg PO [id number] 05/17/18 [History] Warfarin [Coumadin] 9 mg PO TH 05/17/18 [History] Ipratropium/Albuterol Neb [Duoneb] 3 ml IH Q6HR 06/01/18 [History] Polyethylene Glycol 3350 [MiraLAX] 17 gm PO DAILY PRN 06/01/18 [History] Gabapentin [Neurontin] 600 mg PO TID #15 tablet 06/15/18 [Rx] Insulin DETEMIR [Levemir] 20 unit SQ BID [id number] 06/15/18 [Rx] Aspirin [Ecotrin] 81 mg PO DAILY 30 Days #30 tablet. 06/22/18 [Rx] Clotrimazole 1% CRM [Lotrimin 1%] 1 appl TP BID #2 tube 06/22/18 [Rx] Omeprazole 20 mg PO DAILY 30 Days #30 tablet. 06/22/18 [Rx] Furosemide [Lasix] 40 mg PO BID 06/29/18 [History] SitaGLIPtin [Januvia] 100 mg PO DAILY 06/29/18 [History] Umeclidinium Spencer [Incruse Ellipta] 62.5 mcg IH DAILY 06/29/18 [History] Vit A/Vit C/Vit E/Zinc/Copper [Preservision Areds Tablet] 1 tab PO DAILY [History] 3 Allergy/AdvReac Type Severity Reaction Status Date / Time No Known Allergies Allergy Verified 05/17/18 20:27 Review of Systems - Constitutional no chills, no fever(s) - EENT Nose, mouth and throat: no dizziness - Cardiovascular no chest pain - Respiratory no dyspnea - Gastrointestinal no nausea, no vomiting - Genitourinary difficulty urinating, no flank pain, no hematuria - Musculoskeletal no back pain - Integumentary no erythema, no rash - Neurological no weakness - Psychiatric no suicidal ideation - Hematologic/Lymphatic no easy bleeding - Allergic/Immunologic no wheezing Exam Initial Vital Signs Temp Pulse Resp BP Pulse Ox 98.6 F 135 22 112/78 94 06/28/18 23:19 06/28/18 23:19 06/28/18 23:19 06/28/18 23:19 06/28/18 23:19 Urology Results - Labs 06/30/18 04:58 06/30/18 04:58 Abnormal lab results WBC 13.7 K/mcL (4.3-11.1) H 06/30/18 04:58 RBC 3.57 M/mcL (4.19-5.50) L 06/30/18 04:58 Hgb 10.2 g/dL (12.9-16.9) L 06/30/18 04:58 Hct 32.7 % (37.5-50.1) L 06/30/18 04:58 MCHC 31.2 g/dL (31.6-35.5) L 06/30/18 04:58 RDW 17.3 % (11.5-14.5) H 06/30/18 04:58 Neutrophils # 11.1 K/mcL (1.6-8.9) H 06/30/18 04:58 PT 52.5 Seconds (9.4-12.1) H* 06/30/18 04:58 INR 4.7 H* D 06/30/18 04:58 APTT 43.4 Seconds (26.0-36.0) H 06/28/18 23:30 Sodium 135 mEq/L (136-145) L 06/30/18 04:58 BUN 32 mg/dL (8-23) H 06/30/18 04:58 Creatinine 1.42 mg/dL (0.70-1.30) H 06/30/18 04:58 Est GFR ( Amer) 58 (> 60) L 06/30/18 04:58 Est GFR (Non-Af Amer) 48 (> 60) L 06/30/18 04:58 Glucose 143 mg/dL (70-105) H 06/30/18 04:58 POC Glucose 182 mg/dL (70-99) H 06/29/18 20:08 Lactic Acid 2.8 mmol/L (0.5-2.2) H 06/29/18 01:34 B-Natriuretic Peptide 152 pg/mL (Less than 100) H 06/28/18 23:21 Urine Blood Trace (Negative) H 06/29/18 23:31 Urine Bilirubin Small (Negative) H 06/29/18 23:31 Urine Microscopic RBC 5-15 per hpf (0-3) H 06/29/18 23:31 Ur Squamous Epith Cells Moderate per lpf (None-Few) H 06/29/18 23:31 Diabetes panel 06/30/18 Range/Units 04:58 Sodium 135 L (136-145) mEq/L Potassium 3.6 (3.5-5.1) mEq/L Chloride 100 (98-107) mEq/L Carbon Dioxide 26 (23-29) mEq/L BUN 32 H (8-23) mg/dL Creatinine 1.42 H (0.70-1.30) mg/dL Glucose 143 H (70-105) mg/dL Calcium 8.6 (8.6-10.3) mg/dL Calcium panel 06/30/18 Range/Units 04:58 Calcium 8.6 (8.6-10.3) mg/dL Pituitary panel 06/30/18 Range/Units 04:58 Sodium 135 L (136-145) mEq/L Potassium 3.6 (3.5-5.1) mEq/L Chloride 100 (98-107) mEq/L Carbon Dioxide 26 (23-29) mEq/L BUN 32 H (8-23) mg/dL Creatinine 1.42 H (0.70-1.30) mg/dL Glucose 143 H (70-105) mg/dL Calcium 8.6 (8.6-10.3) mg/dL Adrenal panel 06/30/18 Range/Units 04:58 Sodium 135 L (136-145) mEq/L Potassium 3.6 (3.5-5.1) mEq/L Chloride 100 (98-107) mEq/L Carbon Dioxide 26 (23-29) mEq/L BUN 32 H (8-23) mg/dL Creatinine 1.42 H (0.70-1.30) mg/dL Glucose 143 H (70-105) mg/dL Calcium 8.6 (8.6-10.3) mg/dL All other labs normal. - Imaging US - abdomen: report reviewed, image reviewed US - pelvic: report reviewed, image reviewed (He had an ultrasound on 2017 which showed a large left renal cyst, but no evidence of hydronephrosis bilaterally.) Consult Discharge Plan - Plan Referrals: Shayy Rodgers MD [Primary Care Provider] -
[2018-06-30] MEDS: Insulin DETEMIR 100 UNIT/ML X5UNITS SQ SCH (20:22)
[2018-07-01] MEDS: Ipratropium/Albuterol Neb 3 ML IH SCH ×4 (04:13→23:03)
[2018-07-01 05:28] LABS: Basophils % 0.2 %; Eosinophils % 0.1 %; Hematocrit 32.8 % (37.5-50.1); Hemoglobin 10.4 g/dL (12.9-16.9); Immature Granulocytes % 2.1 % (0-4); Lymphocytes # 1.4 K/mcL (0.6-4.6); Lymphocytes % 11.8 %; Mean Corpuscular HGB Conc 31.7 g/dL (31.6-35.5); Mean Corpuscular Hemoglobin 28.7 pg (28.0-33.3); Mean Corpuscular Volume 90.6 fL (83.0-100.0); Mean Platelet Volume 9.1 fL (9.4-12.4); Monocytes # 1.3 K/mcL (0.0-1.3); Nucleated Red Blood Cells 0.2 /100 WBC (0); Platelet Count 396 K/mcL (140-400); Red Blood Count 3.62 M/mcL (4.19-5.50); Red Cell Distribution Width 17.2 % (11.5-14.5); Segmented Neutrophils % 74.8 %
[2018-07-01 05:34] LABS: INR 4.8; Prothrombin Time 54.3 Seconds (9.4-12.1)
[2018-07-01 05:49] LABS: BUN/Creatinine Ratio 26 (6-26); Blood Urea Nitrogen 28 mg/dL (8-23); Calcium 8.5 mg/dL (8.6-10.3); Carbon Dioxide 27 mEq/L (23-29); Chloride 102 mEq/L (98-107); Glucose 122 mg/dL (70-105); Osmolality,Calculated 291 (280-300); Potassium 3.8 mEq/L (3.5-5.1); Sodium 137 mEq/L (136-145); eGFR For Non-African Americans > 60 (> 60)
[2018-07-01] MEDS: Insulin LISPRO 300 UNITS/3 ML VIAL SQ SCH ×4 (07:19→20:04)
[2018-07-01] MEDS ORDERED: Acetaminophen 325 MG TABLET PO PRN (08:20)
[2018-07-01] MEDS: Finasteride 5 MG TABLET PO SCH (08:25)
[2018-07-01] MEDS: predniSONE 20 MG TABLET PO SCH (08:25)
--- NOTE | 2018-07-01 08:59 | Urology Progress Note ---
Date of Encounter: 07/01/18 Time of Encounter: 08:59 - Assessment and Plan (1) Urinary retention Current Visit: Yes Status: Acute Assessment and plan: 78-year-old man with a history of urinary retention with an indwelling catheter. He is doing well. Okay to apply some bacitracin to the meatus. Continue tamsulosin and Proscar. He should follow-up in the clinic for a voiding trial in one week. Progress Note Narrative: Doing well today. Catheter is draining well. He has some burning discomfort in the tip of his penis. Objective Initial Vital Signs Temp Pulse Resp BP Pulse Ox 98.6 F 135 22 112/78 94 06/28/18 23:19 06/28/18 23:19 06/28/18 23:19 06/28/18 23:19 06/28/18 23:19 - General physical appearance Present: well developed, well nourished, no distress - Respiratory Present: normal respiratory effort - Genitourinary Present: other (Hoffman catheter in place.) Urine Appearance: Present: Clear - Labs 07/01/18 04:59 07/01/18 04:59 Diabetes panel 07/01/18 Range/Units 04:59 Sodium 137 (136-145) mEq/L Potassium 3.8 (3.5-5.1) mEq/L Chloride 102 (98-107) mEq/L Carbon Dioxide 27 (23-29) mEq/L BUN 28 H (8-23) mg/dL Creatinine 1.07 (0.70-1.30) mg/dL Glucose 122 H (70-105) mg/dL Calcium 8.5 L (8.6-10.3) mg/dL Calcium panel 07/01/18 Range/Units 04:59 Calcium 8.5 L (8.6-10.3) mg/dL Pituitary panel 07/01/18 Range/Units 04:59 Sodium 137 (136-145) mEq/L Potassium 3.8 (3.5-5.1) mEq/L Chloride 102 (98-107) mEq/L Carbon Dioxide 27 (23-29) mEq/L BUN 28 H (8-23) mg/dL Creatinine 1.07 (0.70-1.30) mg/dL Glucose 122 H (70-105) mg/dL Calcium 8.5 L (8.6-10.3) mg/dL Adrenal panel 07/01/18 Range/Units 04:59 Sodium 137 (136-145) mEq/L Potassium 3.8 (3.5-5.1) mEq/L Chloride 102 (98-107) mEq/L Carbon Dioxide 27 (23-29) mEq/L BUN 28 H (8-23) mg/dL Creatinine 1.07 (0.70-1.30) mg/dL Glucose 122 H (70-105) mg/dL Calcium 8.5 L (8.6-10.3) mg/dL Consult Discharge Plan - Plan Referrals: Shayy Rodgers MD [Primary Care Provider] -
--- NOTE | 2018-07-01 12:11 | Internal Med Progress Note ---
Hospitalist Progress Note - Encounter Date of Encounter: 07/01/18 Time of Encounter: 12:08 - Subjective Interval History: Patient seen and examined at bedside. Patient no acute overnight events. Patient states that he feels better today however is still having intermittent shortness of breath. Patient wore BiPAP overnight. Patient's Hoffman draining mostly clear to yellow urine with occasional blood tinge. Patient required Hoffman insertion by urology yesterday. Patient will be discharged with Hoffman catheter in outpatient follow-up in 1 week for voiding trial. Patient states other than shortness of breath he is not having any chest pain, nausea, vomiting , diarrhea. Patient does some discomfort of his penis. - Exam Vitals: Temp Pulse Resp BP Pulse Ox 97.8 F 88 17 113/74 95 07/01/18 10:57 07/01/18 10:57 07/01/18 10:57 07/01/18 10:57 07/01/18 10:57 Exam: Constitutional: No acute distress, pleasant and cooperative Psych: AAO x 3, pleasant and cooperative today Cardio: Irregularly irregular with controlled rate Resp: To need expiratory wheezes with coarse breath sounds throughout Abd: soft, non tender/non distended, positive bowel sounds Extremities: Patient with mild edema in both lower extremities and left extremity with significant stasis dermatitis with no concern for cellulitis : Hoffman remains in place draining clear to slightly yellow urine with slightly blood tinged Neuro: no focal deficits appreciated - Assessment and Plan (1) Acute and chronic respiratory failure with hypoxia Current Visit: Yes Status: Acute Assessment and Plan: Patient was hypoxic on home oxygen upon arrival and was placed on BiPAP and given IV steroids -Respiratory status is improved and patient is currently off BiPAP -Maintain oxygen supplementation with nasal cannula -BiPAP/CPAP when necessary and daily at bedtime -Continue prednisone to 20 mg daily (2) Acute exacerbation of chronic obstructive airways disease Current Visit: Yes Status: Acute Assessment and Plan: Please see above patient was initially given IV steroids and placed on BiPAP -Currently off BiPAP -Continue prednisone 20 mg daily -Continue BiPAP/CPAP at nighttime and when necessary (3) Acute urinary retention Current Visit: Yes Status: Acute Assessment and Plan: Patient developed acute urinary retention with bladder obstruction. -Hoffman unable to be placed by RN -Urology contacted for Hoffman placement on 06/30/2018 -Expect hematuria due to obstruction resolution and elevated INR; will monitor -Serum creatinine normal today -Patient will maintain Hoffman for 1 week and follow up with urology as an outpatient for trial of voiding -Urology recs appreciated -Continue Proscar and Flomax (4) Atrial fibrillation with RVR Current Visit: Yes Status: Acute Assessment and Plan: Patient with atrial fibrillation/atrial flutter with rapid ventricular response on admission -Given 2 doses of IV Lopressor 5 mg with improvement in heart rate -Heart rate maintenance controlled -Continue Lopressor 25 mg twice a day -On Coumadin with pharmacy to dose INR is 4.8 today Coumadin will be held; no active bleeding other than mild hematuria from Hoffman placement (5) Acute kidney injury Current Visit: Yes Status: Resolved Assessment and Plan: Patient with acute kidney injury on presentation serum creatinine was 1.37 -Likely obstructive as patient's creatinine now normal after Hoffman placement -Baseline creatinine appears to be around 1.1; 1.07 today -Appears euvolemic now however the patient was given IV fluids and Lasix was held -IV fluids discontinued we will continue to hold Lasix (6) Elevated troponin Current Visit: Yes Status: Acute Assessment and Plan: Patient initially presented with elevated troponin of 0.20 -troponin decreased to less than 0.03 -Suspect this is due to demand ischemia secondary to H of her position with rapid ventricular response which is improved; hypoxia from COPD exacerbation could be a contributing factor as well however this is improved to -Patient is not having chest pain no need to trend further troponins (7) Diabetes mellitus Current Visit: Yes Status: Chronic Assessment and Plan: Continue home medication regimen -Monitor Accu-Cheks (8) HTN (hypertension) Current Visit: Yes Status: Chronic Assessment and Plan: Resume metoprolol -Monitor blood pressure (9) Hypothyroid Current Visit: Yes Status: Chronic Assessment and Plan: Resume home medication (10) KYLEE (obstructive sleep apnea) Current Visit: Yes Status: Chronic Assessment and Plan: CPAP ordered nightly DVT Prophylaxis: Currently anticoagulated on Coumadin INR 4.8 - Summary of Assessment and Plan Summary of Assessment and Plan: Patient improved since admission. Continues to have shortness of breath with bronchospasm. Continue steroids and breathing treatments. Anticipate discharge within 24 hours. We will maintain Hoffman at discharge for one week. - Time Spent with Patient Total time spent is greater than 50% in coordination of care (as documented) at patient's floor/unit and/or counseling patient: less than 15 minutes Plan of Care Discussed with: patient Internal Medicine: Result - Labs CBC & Chem 7: 07/01/18 04:59 07/01/18 04:59 Labs: Short CBC 07/01/18 Range/Units 04:59 WBC 12.0 H (4.3-11.1) K/mcL Hgb 10.4 L (12.9-16.9) g/dL Hct 32.8 L (37.5-50.1) % Plt Count 396 (140-400) K/mcL Neutrophils # 9.0 H (1.6-8.9) K/mcL BMP 07/01/18 04:59 Sodium 137 Potassium 3.8 Chloride 102 Carbon Dioxide 27 BUN 28 H Creatinine 1.07 Glucose 122 H Calcium 8.5 L - ABG Interpretation ABG results: PT/INR, D-dimer PT 54.3 Seconds (9.4-12.1) H* 07/01/18 04:59 Consult Discharge Plan - Plan Referrals: Shayy Rodgers MD [Primary Care Provider] - (7) Diabetes mellitus Qualifiers: Diabetes mellitus type: type 2 Diabetes mellitus long-term insulin use: unspecified long term care phlebotomist insulin use status Diabetes mellitus complication status : with unspecified complications Qualified Code(s): E11.8 - Type 2 diabetes mellitus with unspecified complications (8) HTN (hypertension) Qualifiers: Hypertension type: essential hypertension Qualified Code(s): I10 - Essential (primary) hypertension (9) Hypothyroid Qualifiers: Hypothyroidism type: unspecified Qualified Code(s): E03.9 - Hypothyroidism, unspecified
[2018-07-01] MEDS: Insulin DETEMIR 100 UNIT/ML X5UNITS SQ SCH (20:03)
[2018-07-02] MEDS: Ipratropium/Albuterol Neb 3 ML IH SCH ×4 (04:29→22:49)
[2018-07-02 05:18] LABS: Basophils % 0.5 %; Eosinophils % 0.2 %; Hematocrit 32.6 % (37.5-50.1); Immature Granulocytes % 2.7 % (0-4); Lymphocytes # 1.6 K/mcL (0.6-4.6); Lymphocytes % 17.5 %; Mean Corpuscular HGB Conc 30.7 g/dL (31.6-35.5); Mean Corpuscular Hemoglobin 27.5 pg (28.0-33.3); Mean Corpuscular Volume 89.8 fL (83.0-100.0); Mean Platelet Volume 9.3 fL (9.4-12.4); Monocytes # 1.2 K/mcL (0.0-1.3); Monocytes % 13.5 %; Neutrophils # 5.8 K/mcL (1.6-8.9); Platelet Count 418 K/mcL (140-400); Red Blood Count 3.63 M/mcL (4.19-5.50); Red Cell Distribution Width 17.1 % (11.5-14.5); Segmented Neutrophils % 65.6 %
[2018-07-02 05:24] LABS: INR 4.6; Prothrombin Time 51.9 Seconds (9.4-12.1)
[2018-07-02 05:42] LABS: BUN/Creatinine Ratio 23 (6-26); Blood Urea Nitrogen 21 mg/dL (8-23); Calcium 8.5 mg/dL (8.6-10.3); Carbon Dioxide 28 mEq/L (23-29); Chloride 103 mEq/L (98-107); Glucose 102 mg/dL (70-105); Osmolality,Calculated 287 (280-300); Potassium 3.8 mEq/L (3.5-5.1); Sodium 137 mEq/L (136-145); eGFR For Non-African Americans > 60 (> 60)
[2018-07-02] MEDS: Insulin LISPRO 300 UNITS/3 ML VIAL SQ SCH ×4 (08:48→20:55)
[2018-07-02] MEDS: Finasteride 5 MG TABLET PO SCH (08:49)
[2018-07-02] MEDS: predniSONE 20 MG TABLET PO SCH (08:49)
--- NOTE | 2018-07-02 13:40 | Internal Med Progress Note ---
Hospitalist Progress Note - Encounter Date of Encounter: 07/02/18 Time of Encounter: 13:35 - Subjective Interval History: Patient hospitalized here with COPD exacerbation. Has been using BiPAP initially but now mainly using it at night. He does use CPAP at home for sleep apnea. Also has atrial fibrillation with RVR which improved after he was started on his home medications. He still gets intermittent RVR with activity. He was also diagnosed with acute kidney injury most likely related to bladder outlet obstruction. Had Hoffman catheter placed. He did have some trauma with hematuria while placement of Hoffman catheter. Patient was on antibiotics prior to presentation here and his INR is elevated. He is on Coumadin for anticoagulation. INR remains high but it is trending down. However patient's hemoglobin levels also trending down slightly. Plan is to discharge him to skilled rehabilitation once medically stable which I anticipate will be tomorrow if his blood counts remain stable and his INR continues to improve. Today patient is sitting up in chair. He denies any fevers or chills overnight. Shortness of breath is improving. He did use BiPAP overnight. Currently he is on 4 L nasal cannula. Denies any chest pain or palpitations. He does complain of some nasal/ sinus congestion - Exam Vitals: Temp Pulse Resp BP Pulse Ox 97.7 F 139 18 110/76 94 07/02/18 10:52 07/02/18 10:52 07/02/18 10:52 07/02/18 10:52 07/02/18 10:52 Exam: General: Patient is alert, mild distress, oriented x 3 Head: atraumatic, normocephalic, Eye: normal appearance, PERRL, no scleral icterus, no conjunctival injection Neck: normal inspection, trachea midline, full ROM, no carotid bruits Chest: normal inspection, symmetric chest rise Respiratory: Good respiratory effort. Minimal wheezing bilaterally. Decreased breath sounds in both bases Cardiovascular: Irregularly irregular rhythm, tachycardia. s1 and s2 No clicks , rubs, gallops, or murmurs. No pedal edema Abdomen: Abdomen is soft, nontender. Bowel sounds are present Musculoskeletal: Spontaneously moving all extremities Skin: warm, dry, intact. Neuro: Alert oriented x 3 normal cranial nerves, no focal deficits Psych: Patient's affect is normal - Assessment and Plan (1) Acute and chronic respiratory failure with hypoxia Current Visit: Yes Status: Acute Assessment and Plan: Improving. Patient on 4 L cannula at this time. Continue BiPAP use at bedtime. Patient does have CPAP that he uses at the [facility]. (2) Acute exacerbation of chronic obstructive airways disease Current Visit: Yes Status: Acute Assessment and Plan: Continue tapering steroids. Continue bronchodilators. Patient is clinically improving overall. She will be ready for discharge back to skilled rehabilitation tomorrow provided his anemia remains stable and INR trends down. (3) Atrial fibrillation with RVR Current Visit: Yes Status: Acute Assessment and Plan: Patient in RVR this morning. We will increase Lopressor to 50 mg twice daily. Continue to monitor with telemetry. On and correlation with Coumadin. INR remains supratherapeutic. Coumadin on hold/pharmacy dosing. (4) Diabetes mellitus Current Visit: Yes Status: Chronic Assessment and Plan: Sugars are well controlled. Continue current insulin regimen (5) HTN (hypertension) Current Visit: Yes Status: Chronic Assessment and Plan: Blood pressure is controlled. We will continue to monitor. (6) Hypothyroid Current Visit: Yes Status: Chronic Assessment and Plan: continue levothyroxine (7) KYLEE (obstructive sleep apnea) Current Visit: Yes Status: Chronic Assessment and Plan: Use CPAP/BiPAP at bedtime and while lying down (8) Acute kidney injury Current Visit: Yes Status: Resolved Assessment and Plan: Due to bladder outlet obstruction. Now resolved. With Hoffman catheter in place. Outpatient follow-up with urology in 1 week for voiding trial. (9) Elevated troponin Current Visit: Yes Status: Acute Assessment and Plan: Most likely type 2/demand ischemia. Trended down. (10) Acute urinary retention Current Visit: Yes Status: Acute Assessment and Plan: Hoffman catheter in place. On Flomax and Proscar. Follow up with urology as outpatient in 1 week for voiding trial. - Time Spent with Patient Total time spent is greater than 50% in coordination of care (as documented) at patient's floor/unit and/or counseling patient: Internal Medicine: Result - Labs CBC & Chem 7: 07/02/18 04:22 07/02/18 04:22 Labs: Short CBC 07/02/18 Range/Units 04:22 WBC 8.9 (4.3-11.1) K/mcL Hgb 10.0 L (12.9-16.9) g/dL Hct 32.6 L (37.5-50.1) % Plt Count 418 H (140-400) K/mcL Neutrophils # 5.8 (1.6-8.9) K/mcL BMP 07/02/18 04:22 Sodium 137 Potassium 3.8 Chloride 103 Carbon Dioxide 28 BUN 21 Creatinine 0.91 Glucose 102 Calcium 8.5 L - ABG Interpretation ABG results: PT/INR, D-dimer PT 51.9 Seconds (9.4-12.1) H* 07/02/18 04:22 Consult Discharge Plan - Plan Referrals: Shayy Rodgers MD [Primary Care Provider] - (4) Diabetes mellitus Qualifiers: Diabetes mellitus type: type 2 Diabetes mellitus snf insulin use: unspecified exterminator insulin use status Diabetes mellitus complication status : with unspecified complications Qualified Code(s): E11.8 - Type 2 diabetes mellitus with unspecified complications (5) HTN (hypertension) Qualifiers: Hypertension type: essential hypertension Qualified Code(s): I10 - Essential (primary) hypertension (6) Hypothyroid Qualifiers: Hypothyroidism type: unspecified Qualified Code(s): E03.9 - Hypothyroidism, unspecified
[2018-07-02] MEDS ORDERED: Saline Nasal Spray 44 ML BOTTLE NS PRN (16:07)
[2018-07-02] MEDS: Fluticasone Propionate Nasal 50 MCG/SPRAY BOTTLE NS SCH (17:15)
[2018-07-02] MEDS: *HR* Acetylcysteine 20% 600 MG/3 ML ORAL SYRINGE PO SCH (17:16)
[2018-07-02] MEDS: Insulin DETEMIR 100 UNIT/ML X5UNITS SQ SCH (20:54)
[2018-07-02] MEDS: Furosemide 40 MG TABLET PO SCH (20:54)
[2018-07-02] MEDS: Gabapentin 300 MG CAPSULE PO SCH (20:54)
[2018-07-03] MEDS: Ipratropium/Albuterol Neb 3 ML IH SCH ×4 (03:58→22:10)
[2018-07-03 05:40] LABS: Eosinophils # 0.1 K/mcL (0.0-0.6); Hematocrit 36.5 % (37.5-50.1); Hemoglobin 11.1 g/dL (12.9-16.9); Mean Corpuscular HGB Conc 30.4 g/dL (31.6-35.5); Mean Corpuscular Hemoglobin 28.1 pg (28.0-33.3); Mean Corpuscular Volume 92.4 fL (83.0-100.0); Mean Platelet Volume 9.1 fL (9.4-12.4); Platelet Count 416 K/mcL (140-400); Red Blood Count 3.95 M/mcL (4.19-5.50); Red Cell Distribution Width 17.1 % (11.5-14.5)
[2018-07-03 05:45] LABS: INR 3.6; Prothrombin Time 40.4 Seconds (9.4-12.1)
[2018-07-03 05:58] LABS: BUN/Creatinine Ratio 18 (6-26); Blood Urea Nitrogen 20 mg/dL (8-23); Calcium 8.5 mg/dL (8.6-10.3); Carbon Dioxide 30 mEq/L (23-29); Chloride 100 mEq/L (98-107); Glucose 117 mg/dL (70-105); Osmolality,Calculated 290 (280-300); Sodium 138 mEq/L (136-145); eGFR For Non-African Americans > 60 (> 60)
[2018-07-03 06:08] LABS: Lymphocytes # 1.2 K/mcL (0.6-4.6); Monocytes # 1.2 K/mcL (0.0-1.3); Neutrophils # 8.4 K/mcL (1.6-8.9)
[2018-07-03 06:09] LABS: Platelet Estimate Normal (Normal); Toxic Granulation Present (Not Present)
[2018-07-03] MEDS: Gabapentin 300 MG CAPSULE PO SCH ×3 (08:17→20:33)
[2018-07-03] MEDS: Furosemide 40 MG TABLET PO SCH ×3 (08:18→18:19)
[2018-07-03] MEDS: FLUoxetine 20 MG CAPSULE PO SCH (08:18)
[2018-07-03] MEDS: predniSONE 20 MG TABLET PO SCH (08:18)
[2018-07-03] MEDS: Fluticasone Propionate Nasal 50 MCG/SPRAY BOTTLE NS SCH (08:18)
[2018-07-03] MEDS: Loratadine 10 MG TABLET PO SCH (08:18)
[2018-07-03] MEDS: Aspirin Enteric Coated 81 MG Tablet PO SCH (08:18)
[2018-07-03] MEDS: Finasteride 5 MG TABLET PO SCH (08:18)
[2018-07-03] MEDS: Insulin LISPRO 300 UNITS/3 ML VIAL SQ SCH ×4 (08:19→20:34)
[2018-07-03] MEDS: *HR* Acetylcysteine 20% 600 MG/3 ML ORAL SYRINGE PO SCH ×3 (08:19→18:19)
--- NOTE | 2018-07-03 09:36 | Urology Progress Note ---
Date of Encounter: 07/03/18 Time of Encounter: 09:34 - Assessment and Plan (1) Urinary retention Current Visit: Yes Status: Acute Assessment and plan: Catheter is indwelling and draining sufficiently since irrigation by nurse. Continue catheter management and will follow up in one week for voiding trial with Dr. Miller as discussed. Progress Note Subjective: no new complaints, feels better Narrative: Patient seen and examined sitting on bedside commode with nurse at bedside. States feeling well with no new concerns. Catheter hand irrigated by nurse and immediately got 650cc output. Catheter indwelling and draining well with no obstruction or leaking. Objective Initial Vital Signs Temp Pulse Resp BP Pulse Ox 98.6 F 135 22 112/78 94 06/28/18 23:19 06/28/18 23:19 06/28/18 23:19 06/28/18 23:19 06/28/18 23:19 - General physical appearance Present: well developed, no distress, no pain - Respiratory Present: normal expansion, normal respiratory effort - Genitourinary Present: other (indwelling urethral catheter draining clear urine into bedside bag) Urine Appearance: Present: Clear - Integumentary Present: no abnormal pigmentation - Musculoskeletal Present: normal posture - Labs 07/03/18 05:04 07/03/18 05:04 Diabetes panel 07/03/18 Range/Units 05:04 Sodium 138 (136-145) mEq/L Potassium 4.0 (3.5-5.1) mEq/L Chloride 100 (98-107) mEq/L Carbon Dioxide 30 H (23-29) mEq/L BUN 20 (8-23) mg/dL Creatinine 1.10 (0.70-1.30) mg/dL Glucose 117 H (70-105) mg/dL Calcium 8.5 L (8.6-10.3) mg/dL Calcium panel 07/03/18 Range/Units 05:04 Calcium 8.5 L (8.6-10.3) mg/dL Pituitary panel 07/03/18 Range/Units 05:04 Sodium 138 (136-145) mEq/L Potassium 4.0 (3.5-5.1) mEq/L Chloride 100 (98-107) mEq/L Carbon Dioxide 30 H (23-29) mEq/L BUN 20 (8-23) mg/dL Creatinine 1.10 (0.70-1.30) mg/dL Glucose 117 H (70-105) mg/dL Calcium 8.5 L (8.6-10.3) mg/dL Adrenal panel 07/03/18 Range/Units 05:04 Sodium 138 (136-145) mEq/L Potassium 4.0 (3.5-5.1) mEq/L Chloride 100 (98-107) mEq/L Carbon Dioxide 30 H (23-29) mEq/L BUN 20 (8-23) mg/dL Creatinine 1.10 (0.70-1.30) mg/dL Glucose 117 H (70-105) mg/dL Calcium 8.5 L (8.6-10.3) mg/dL Consult Discharge Plan - Plan Referrals: Shayy Rodegrs MD [Primary Care Provider] -
[2018-07-03] MEDS: Budesonide/Formoterol 160/4.5 1 PUFF INH IH SCH (09:49)
--- NOTE | 2018-07-03 11:43 | Internal Med Progress Note ---
Hospitalist Progress Note - Encounter Date of Encounter: 07/03/18 Time of Encounter: 11:40 - Subjective Interval History: No acute events overnight - Exam Vitals: Temp Pulse Resp BP Pulse Ox 97.5 F L 89 16 106/67 94 07/03/18 10:51 07/03/18 10:51 07/03/18 10:51 07/03/18 10:51 07/03/18 10:51 Exam: General: Patient is alert, mild distress, oriented x 3 Head: atraumatic, normocephalic, Eye: normal appearance, PERRL, no scleral icterus, no conjunctival injection Neck: normal inspection, trachea midline, full ROM, no carotid bruits Chest: normal inspection, symmetric chest rise Respiratory: Good respiratory effort. Minimal wheezing bilaterally. Decreased breath sounds in both bases Cardiovascular: Irregularly irregular rhythm, tachycardia. s1 and s2 No clicks , rubs, gallops, or murmurs. No pedal edema Abdomen: Abdomen is soft, nontender. Bowel sounds are present Musculoskeletal: Spontaneously moving all extremities Skin: warm, dry, intact. Neuro: Alert oriented x 3 normal cranial nerves, no focal deficits Psych: Patient's affect is normal - Assessment and Plan (1) Atrial fibrillation with RVR Current Visit: Yes Status: Acute Assessment and Plan: Patient in RVR this morning. We will increase Lopressor to 50 mg twice daily. Continue to monitor with telemetry. On and correlation with Coumadin. INR remains supratherapeutic. Coumadin on hold/pharmacy dosing. INR was 3.6 this am. Will continue to hold coumadin (2) Acute and chronic respiratory failure with hypoxia Current Visit: Yes Status: Acute Assessment and Plan: Improving. Patient on 4 L cannula at this time. Continue BiPAP use at bedtime. Patient does have CPAP that he uses at the [facility]. (3) KYLEE (obstructive sleep apnea) Current Visit: Yes Status: Chronic Assessment and Plan: Use CPAP/BiPAP at bedtime and while lying down (4) Diabetes mellitus Current Visit: Yes Status: Chronic Assessment and Plan: Sugars are well controlled. Continue current insulin regimen (5) HTN (hypertension) Current Visit: Yes Status: Chronic Assessment and Plan: Blood pressure is controlled. We will continue to monitor. (6) Hypothyroid Current Visit: Yes Status: Chronic Assessment and Plan: continue levothyroxine (7) Acute kidney injury Current Visit: Yes Status: Resolved Assessment and Plan: Due to bladder outlet obstruction. Now resolved. With Hoffman catheter in place. Outpatient follow-up with urology in 1 week for voiding trial. (8) Acute exacerbation of chronic obstructive airways disease Current Visit: Yes Status: Acute Assessment and Plan: Continue tapering steroids. Continue bronchodilators. Patient is clinically improving overall. She will be ready for discharge back to skilled rehabilitation tomorrow provided his anemia remains stable and INR trends down. (9) Elevated troponin Current Visit: Yes Status: Acute Assessment and Plan: Most likely type 2/demand ischemia. Trended down. (10) Acute urinary retention Current Visit: Yes Status: Acute Assessment and Plan: Hoffman catheter in place. On Flomax and Proscar. Follow up with urology as outpatient in 1 week for voiding trial. DVT Prophylaxis: On coumadin - Time Spent with Patient Total time spent is greater than 50% in coordination of care (as documented) at patient's floor/unit and/or counseling patient: Internal Medicine: Result - Labs CBC & Chem 7: 07/03/18 05:04 07/03/18 05:04 Labs: Short CBC 07/03/18 Range/Units 05:04 WBC 11.3 H (4.3-11.1) K/mcL Hgb 11.1 L (12.9-16.9) g/dL Hct 36.5 L (37.5-50.1) % Plt Count 416 H (140-400) K/mcL Neutrophils # 8.4 (1.6-8.9) K/mcL BMP 07/03/18 05:04 Sodium 138 Potassium 4.0 Chloride 100 Carbon Dioxide 30 H BUN 20 Creatinine 1.10 Glucose 117 H Calcium 8.5 L - ABG Interpretation ABG results: PT/INR, D-dimer PT 40.4 Seconds (9.4-12.1) H 07/03/18 05:04 Consult Discharge Plan - Plan Referrals: Shayy Rodgers MD [Primary Care Provider] - (4) Diabetes mellitus Qualifiers: Diabetes mellitus type: type 2 Diabetes mellitus care home insulin use: unspecified care home insulin use status Diabetes mellitus complication status : with unspecified complications Qualified Code(s): E11.8 - Type 2 diabetes mellitus with unspecified complications (5) HTN (hypertension) Qualifiers: Hypertension type: essential hypertension Qualified Code(s): I10 - Essential (primary) hypertension (6) Hypothyroid Qualifiers: Hypothyroidism type: unspecified Qualified Code(s): E03.9 - Hypothyroidism, unspecified
[2018-07-03 17:57] LABS: ABG Base Excess 4 mEq/L (-2 to 3); ABG HCO3 29 mEq/L (21-27); ABG Oxygen Saturation 96 % (95-98); ABG PCO2 44 mmHg (35-45); ABG PH 7.43 pH Units (7.32-7.45); ABG PO2 81 mmHg (85-104); ABG TCO2 30 mEq/L (20-26)
[2018-07-03] MEDS: Insulin DETEMIR 100 UNIT/ML X5UNITS SQ SCH (20:33)
[2018-07-04] MEDS: Ipratropium/Albuterol Neb 3 ML IH SCH ×2 (04:07→10:44)
[2018-07-04 06:03] LABS: Hematocrit 34.1 % (37.5-50.1); Hemoglobin 10.6 g/dL (12.9-16.9); Mean Corpuscular HGB Conc 31.1 g/dL (31.6-35.5); Mean Corpuscular Hemoglobin 27.8 pg (28.0-33.3); Mean Corpuscular Volume 89.5 fL (83.0-100.0); Mean Platelet Volume 9.1 fL (9.4-12.4); Monocytes # 1.3 K/mcL (0.0-1.3); Platelet Count 379 K/mcL (140-400); Red Blood Count 3.81 M/mcL (4.19-5.50); Red Cell Distribution Width 16.9 % (11.5-14.5)
[2018-07-04 06:07] LABS: INR 1.9; Prothrombin Time 21.7 Seconds (9.4-12.1)
[2018-07-04 06:25] LABS: BUN/Creatinine Ratio 21 (6-26); Blood Urea Nitrogen 21 mg/dL (8-23); Calcium 8.7 mg/dL (8.6-10.3); Carbon Dioxide 32 mEq/L (23-29); Chloride 99 mEq/L (98-107); Glucose 122 mg/dL (70-105); Magnesium 1.9 mg/dL (1.6-2.6); Osmolality,Calculated 290 (280-300); Phosphorous 3.7 mg/dL (2.7-4.5); Sodium 138 mEq/L (136-145); eGFR For Non-African Americans > 60 (> 60)
[2018-07-04 06:35] LABS: Lymphocytes # 3.4 K/mcL (0.6-4.6); Neutrophils # 8.3 K/mcL (1.6-8.9); Platelet Estimate Normal (Normal); Reactive Lymphocytes Present (Not Present)
[2018-07-04 06:36] LABS: Polychromasia 1+ (Not Present)
[2018-07-04 06:56] VITALS: BP 145/80
[2018-07-04] MEDS: Insulin LISPRO 300 UNITS/3 ML VIAL SQ SCH (08:10)
[2018-07-04] MEDS: Aspirin Enteric Coated 81 MG Tablet PO SCH (08:18)
[2018-07-04] MEDS: Furosemide 40 MG TABLET PO SCH (08:18)
[2018-07-04] MEDS: FLUoxetine 20 MG CAPSULE PO SCH (08:18)
[2018-07-04] MEDS: predniSONE 20 MG TABLET PO SCH (08:18)
[2018-07-04] MEDS: Finasteride 5 MG TABLET PO SCH (08:18)
[2018-07-04] MEDS: Fluticasone Propionate Nasal 50 MCG/SPRAY BOTTLE NS SCH (08:19)
[2018-07-04] MEDS: Loratadine 10 MG TABLET PO SCH (08:19)
[2018-07-04] MEDS: Gabapentin 300 MG CAPSULE PO SCH (08:19)
[2018-07-04] MEDS: *HR* Acetylcysteine 20% 600 MG/3 ML ORAL SYRINGE PO SCH (08:19)
--- NOTE | 2018-07-04 08:57 | Discharge Summary ---
Orders not resulted at time of discharge: Pending orders 07/05/18 04:00 Basic Metabolic Panel AM 0400 CBC [Complete Blood Count] [HEME] AM 0400 Magnesium AM 0400 PT/INR [Prothrombin Time INR] [COAG] AM 0400 Phosphorous AM 0400 07/06/18 04:00 Basic Metabolic Panel AM 0400 CBC [Complete Blood Count] [HEME] AM 0400 Magnesium AM 0400 PT/INR [Prothrombin Time INR] [COAG] AM 0400 Phosphorous AM 0400 07/07/18 04:00 Basic Metabolic Panel AM 0400 CBC [Complete Blood Count] [HEME] AM 0400 Magnesium AM 0400 PT/INR [Prothrombin Time INR] [COAG] AM 0400 Phosphorous AM 0400 07/08/18 04:00 Basic Metabolic Panel AM 0400 CBC [Complete Blood Count] [HEME] AM 0400 Magnesium AM 0400 Phosphorous AM 0400 07/09/18 04:00 Basic Metabolic Panel AM 0400 CBC [Complete Blood Count] [HEME] AM 0400 Magnesium AM 0400 Phosphorous AM 0400 Date of Encounter: 07/04/18 Time of Encounter: 08:30 - Discharge Diagnosis (1) Acute and chronic respiratory failure with hypoxia Priority: Primary Status: Acute Assessment and Plan: 78 year old male patient with pmh of COPD on 3L home oxygen presented to the emergency room from a longterm due to concerns of increased shortness of breath and hypoxia. He was assessed with acute hypoxic respiratory failure likely secondary to acute COPD exacerbation and started on BIPAP with nebs and steroids. He was also found to be in afib with RVR on admissions and developed urinary retention during his hospital course as well as a supratherapeutic INR For his COPD exacerbation and hypoxic respiratory failure, he improved with BiPAP, nebs,adn steroids and was back to baseline on the day of discharge For his afib with RVR, he got IV lopressor on admission and his home does of lopressor was increased to 50mg BID which is the regimen he will be discharged on. For his urinary retention, he was seen by urology who placed a [place] catheter and has recommended he follow up in a week for a voiding trial. He was also noted to have spells of lethargy, a CT head came back negative, his gabapentin dose was reduced on discharge. He also had a supratherapeutic INR which was thought secondary to a recent course of antibiotics he had just completed. On discharge his INR was down 1.9 and his coumadin was resumed. 35minutes was spent discharging this patient (2) Atrial fibrillation with RVR Priority: Primary Status: Acute (3) KYLEE (obstructive sleep apnea) Priority: Secondary Status: Chronic (4) Diabetes mellitus Priority: Secondary Status: Chronic Qualifiers: Diabetes mellitus type: type 2 Diabetes mellitus [place] insulin use: unspecified half-way insulin use status Diabetes mellitus complication status : with unspecified complications Qualified Code(s): E11.8 - Type 2 diabetes mellitus with unspecified complications (5) HTN (hypertension) Priority: Secondary Status: Chronic Qualifiers: Hypertension type: essential hypertension Qualified Code(s): I10 - Essential (primary) hypertension (6) Hypothyroid Priority: Secondary Status: Chronic Qualifiers: Hypothyroidism type: unspecified Qualified Code(s): E03.9 - Hypothyroidism , unspecified (7) Acute kidney injury Priority: Secondary Status: Resolved (8) Acute exacerbation of chronic obstructive airways disease Priority: Secondary Status: Acute (9) Elevated troponin Priority: Secondary Status: Acute (10) Acute urinary retention Priority: Secondary Status: Acute Hospital course: Mr. Doe is a 78 year old male - Time Spent with Patient Total time spent providing and/or coordinating discharge services: - Discharge Medications Prescriptions: Gabapentin [Neurontin] 300 mg PO TID #90 capsule Metoprolol [Lopressor] 50 mg PO BID #60 tablet predniSONE [PredniSONE] 20 mg PO DAILY #5 tablet Tamsulosin [Flomax] 0.4 mg PO DAILY #30 capsule Home Medications: Acetylcysteine [X-Wyhbse-g-Cysteine] 600 mg PO TIDAC 05/17/18 [History] Amitriptyline HCl 100 mg PO DAILY 05/17/18 [History] Atorvastatin Calcium [Lipitor] 20 mg PO HS 05/17/18 [History] FLUoxetine HCl [Prozac] 20 mg PO DAILY 05/17/18 [History] Finasteride [Proscar] 5 mg PO DAILY 05/17/18 [History] Fish Oil/Dha/Epa [Fish Oil 1,200 mg Fish Oil] 1 cap PO DAILY 05/17/18 [History] Fluticasone Propionate Nasal [Flonase] 1 spr NS DAILY 05/17/18 [History] Fluticasone/Salmeterol [Advair Hfa 230-21 Mcg Inhaler] 1 puff IH DAILY 05/17/18 [History] Levothyroxine [Synthroid] 125 mcg PO 0630 05/17/18 [History] Loratadine [Claritin] 10 mg PO DAILY 05/17/18 [History] Lutein 20 mg PO DAILY 05/17/18 [History] Metformin HCl [Glucophage] 1,000 mg PO BID 05/17/18 [History] Warfarin [Coumadin] 6 mg PO SUMOTUWEFRSA 05/17/18 [History] Warfarin [Coumadin] 9 mg PO TH 05/17/18 [History] Ipratropium/Albuterol Neb [Duoneb] 3 ml IH Q6HR 06/01/18 [History] Polyethylene Glycol 3350 [MiraLAX] 17 gm PO DAILY PRN 06/01/18 [History] Insulin DETEMIR [Levemir] 20 unit SQ BID [id number] 06/15/18 [Rx] Aspirin [Ecotrin] 81 mg PO DAILY 30 Days #30 tablet. 06/22/18 [Rx] Clotrimazole 1% CRM [Lotrimin 1%] 1 appl TP BID #2 tube 06/22/18 [Rx] Omeprazole 20 mg PO DAILY 30 Days #30 tablet. 06/22/18 [Rx] Furosemide [Lasix] 40 mg PO BID 06/29/18 [History] SitaGLIPtin [Januvia] 100 mg PO DAILY 06/29/18 [History] Umeclidinium [place] [Incruse Ellipta] 62.5 mcg IH DAILY 06/29/18 [History] Vit A/Vit C/Vit E/Zinc/Copper [Preservision Areds Tablet] 1 tab PO DAILY [History] Gabapentin [Neurontin] 300 mg PO TID #90 capsule 07/04/18 [Rx] Metoprolol [Lopressor] 50 mg PO BID #60 tablet 07/04/18 [Rx] Tamsulosin [Flomax] 0.4 mg PO DAILY #30 capsule 07/04/18 [Rx] predniSONE [PredniSONE] 20 mg PO DAILY #5 tablet 07/04/18 [Rx] Allergies/Adverse Reactions: 3 Allergy/AdvReac Type Severity Reaction Status Date / Time No Known Allergies Allergy Verified 05/17/18 20:27 Date of admission: 06/29/18 02:45 Primary care physician: Shayy Rodgers MD Consults: 06/29/18 03:53 Consult to Nurse Navigator [CONS] Routine Comment: 06/29/18 08:15 Consult to Rehabilitation Teacher [CONS] Routine Reason for SW Consult: [facility] 06/30/18 11:20 Consult to Urology [CONS] Routine Consulting Provider: U[facility] Reason for Consult: Acute urinary retention Call Completed: Yes 06/30/18 16:48 Consult to Occupational Therapy [CONS] Routine Comment: Evaluate, develop and implement POC Reason for Consult: return to [facility]; assist with exercises/mobility; Does patient have active BEDREST order?: No Is patient medically & hemodynamically stable?: Yes Consult to Physical Therapy [CONS] Routine Comment: Evaluate, develop and implement POC Reason for Consult: return to [facility]; assist with exercises/mobility; Does patient have active BEDREST order?: No Is patient medically & hemodynamically stable?: Yes 07/01/18 11:05 Consult to Nutrition [CONS] Routine Comment: decreased intake in solid foods, decreased appetit Consulting Provider: NUTRITION Reason for Dietary Consult: PO Supplementation - Constitutional Vitals: Temp Pulse Resp BP Pulse Ox 97.6 F 82 17 145/80 93 07/04/18 06:54 07/04/18 06:54 07/04/18 06:54 07/04/18 06:54 07/04/18 06:54 General appearance: Present: no acute distress. Absent: cooperative - Head Head exam: Present: atraumatic, normocephalic - Eye Eye exam: Present: PERRL, conjuntiva pink, sclera anicteric Pupils: Present: PERRL - Neck Neck exam general surgery: Present: supple, trachea midline. Absent: lymphadenopathy - Respiratory Respiratory exam: Present: CTAB. Absent: accessory muscle use, rales, rhonchi, wheezes - Cardiovascular Cardiovascular exam: Present: irregular rhythm, +S1, +S2. Absent: diastolic murmur, gallop, rubs, systolic murmur - GI/Abdominal GI/Abdominal exam: Present: normal bowel sounds, soft, no peritoneal signs. Absent: distended, tenderness - Extremities Exam Extremities exam: Present: warm, radial pulses palpable and symmetrical. Absent : calf tenderness, cyanotic, pedal edema - Neurological Exam Neurological exam: Present: CN II-XII intact, oriented X3, no focal deficits. Absent: pronater drift, facial droop, speech deficit - Skin Skin exam: Present: dry, intact - Patient Status Disposition: Transfer Inpatient Rehab Fac Condition: Good - Discharge Instructions Follow Up With: Shayy Rodgers MD [Primary Care Provider] -
--- NOTE | 2018-07-04 09:15 | Physician Discharge Referral ---
ExtendedCare Referral Info Transfer To: F - Diagnosis (1) Atrial fibrillation with RVR Priority: Primary Status: Acute (2) Acute and chronic respiratory failure with hypoxia Priority: Primary Status: Acute (3) KYLEE (obstructive sleep apnea) Status: Chronic (4) Diabetes mellitus Status: Chronic (5) HTN (hypertension) Status: Chronic (6) Hypothyroid Status: Chronic (7) Acute kidney injury Status: Resolved (8) Acute exacerbation of chronic obstructive airways disease Status: Acute (9) Elevated troponin Status: Acute (10) Acute urinary retention Status: Acute - Transfer Medications Prescriptions: Gabapentin [Neurontin] 300 mg PO TID #90 capsule Metoprolol [Lopressor] 50 mg PO BID #60 tablet predniSONE [PredniSONE] 20 mg PO DAILY #5 tablet Tamsulosin [Flomax] 0.4 mg PO DAILY #30 capsule Home Medications: Acetylcysteine [T-Dfnwgz-g-Cysteine] 600 mg PO TIDAC 05/17/18 [History] Amitriptyline HCl 100 mg PO DAILY 05/17/18 [History] Atorvastatin Calcium [Lipitor] 20 mg PO HS 05/17/18 [History] FLUoxetine HCl [Prozac] 20 mg PO DAILY 05/17/18 [History] Finasteride [Proscar] 5 mg PO DAILY 05/17/18 [History] Fish Oil/Dha/Epa [Fish Oil 1,200 mg Fish Oil] 1 cap PO DAILY 05/17/18 [History] Fluticasone Propionate Nasal [Flonase] 1 spr NS DAILY 05/17/18 [History] Fluticasone/Salmeterol [Advair Hfa 230-21 Mcg Inhaler] 1 puff IH DAILY 05/17/18 [History] Levothyroxine [Synthroid] 125 mcg PO 0630 05/17/18 [History] Loratadine [Claritin] 10 mg PO DAILY 05/17/18 [History] Lutein 20 mg PO DAILY 05/17/18 [History] Metformin HCl [Glucophage] 1,000 mg PO BID 05/17/18 [History] Warfarin [Coumadin] 6 mg PO SUMOTUWEFRSA 05/17/18 [History] Warfarin [Coumadin] 9 mg PO TH 05/17/18 [History] Ipratropium/Albuterol Neb [Duoneb] 3 ml IH Q6HR 06/01/18 [History] Polyethylene Glycol 3350 [MiraLAX] 17 gm PO DAILY PRN 06/01/18 [History] Insulin DETEMIR [Levemir] 20 unit SQ BID [id number] 06/15/18 [Rx] Aspirin [Ecotrin] 81 mg PO DAILY 30 Days #30 tablet. 06/22/18 [Rx] Clotrimazole 1% CRM [Lotrimin 1%] 1 appl TP BID #2 tube 06/22/18 [Rx] Omeprazole 20 mg PO DAILY 30 Days #30 tablet. 06/22/18 [Rx] Furosemide [Lasix] 40 mg PO BID 06/29/18 [History] SitaGLIPtin [Januvia] 100 mg PO DAILY 06/29/18 [History] Umeclidinium [place] [Incruse Ellipta] 62.5 mcg IH DAILY 06/29/18 [History] Vit A/Vit C/Vit E/Zinc/Copper [Preservision Areds Tablet] 1 tab PO DAILY [History] Gabapentin [Neurontin] 300 mg PO TID #90 capsule 07/04/18 [Rx] Metoprolol [Lopressor] 50 mg PO BID #60 tablet 07/04/18 [Rx] Tamsulosin [Flomax] 0.4 mg PO DAILY #30 capsule 07/04/18 [Rx] predniSONE [PredniSONE] 20 mg PO DAILY #5 tablet 07/04/18 [Rx] Allergies/Adverse Reactions: 3 Allergy/AdvReac Type Severity Reaction Status Date / Time No Known Allergies Allergy Verified 05/17/18 20:27 - Respiratory Orders Smoking Cessation: Smoking cessation has been advised. For more information, call the [place] Tobacco Quit Line at 6-737-PTWU-NOW. - Mobility Orders Ambulate - Rehabiliation Orders Rehab Potential: Good - Diet Orders Cardiac CERTIFICATION: I certify that the transfer of the above named patient to an Extended Care Facility is necessary for the continuing treatment of the diagnosis listed. The above information is true and accurate reflection of patient's current condition. Confidential - Redisclosure prohibited without a patient's written consent.
[2018-07-04] MEDS: Budesonide/Formoterol 160/4.5 1 PUFF INH IH SCH (10:44)
[2018-07-04] MEDS ORDERED: *HR* Warfarin 3 MG TABLET PO ONE (18:00)
== END 2018-07-04 11:27 ==
LOC: EMEROO 23:14 → 2ANU 23:14 → SUATTDRO 06-29 02:45 → 2ANU 06-29 03:46
PROVIDERS: ADMIT Internal Medicine; ATTEND Internal Medicine

== ENCOUNTER 2018-07-31 11:59 | Inpatient (IN) ==
[2018-07-31] MEDS ORDERED: 0.9 % Sodium Chloride 1,000 ML IVC ONE ×2 (12:21→14:42)
[2018-07-31] MEDS ORDERED: Ipratropium/Albuterol Neb 3 ML IH ONE (12:23)
[2018-07-31 12:42] LABS: Basophils % 0.2 %; Eosinophils # 0.1 K/mcL (0.0-0.6); Eosinophils % 0.7 %; Hematocrit 40.7 % (37.5-50.1); Hemoglobin 12.7 g/dL (12.9-16.9); Lymphocytes # 0.8 K/mcL (0.6-4.6); Lymphocytes % 4.6 %; Mean Corpuscular HGB Conc 31.2 g/dL (31.6-35.5); Mean Corpuscular Hemoglobin 28.4 pg (28.0-33.3); Mean Corpuscular Volume 91.1 fL (83.0-100.0); Mean Platelet Volume 10.8 fL (9.4-12.4); Monocytes # 1.1 K/mcL (0.0-1.3); Monocytes % 6.4 %; Neutrophils # 14.3 K/mcL (1.6-8.9); Platelet Count 250 K/mcL (140-400); Red Blood Count 4.47 M/mcL (4.19-5.50); Red Cell Distribution Width 19.2 % (11.5-14.5); Segmented Neutrophils % 87.1 %
[2018-07-31 12:46] LABS: Bilirubin,Urine Small (Negative); Blood,Urine Large (Negative); Clarity,Urine Cloudy (Clear); Color,Urine Dark Yellow (Yellow); Glucose,Urine (UA) Normal (Normal); Ketones,Urine Negative (Negative); Leukocyte Esterase,Urine Moderate (Negative); Nitrite,Urine Negative (Negative); PH,Urine 5.5 pH Units (5.0-8.0); Protein,Urine Trace mg/dL (Neg-Trace); Specific Gravity,Urine 1.016 (1.010-1.025); Urobilinogen,Urine Normal (Normal)
[2018-07-31 12:48] LABS: Bacteria,Urine None Seen per hpf (None-Few); Hyaline Casts,Urine None Seen per lpf (None-Few); RBC,Urine 50-100 per hpf (0-3); Squamous Epithelial Cell,Urine Moderate per lpf (None-Few)
[2018-07-31 12:53] LABS: INR 1.5; Prothrombin Time 16.9 Seconds (9.4-12.1)
[2018-07-31 13:01] LABS: Troponin I < 0.03 ng/mL (< 0.04)
[2018-07-31 13:02] LABS: BUN/Creatinine Ratio 29 (6-26); Blood Urea Nitrogen 40 mg/dL (8-23); Carbon Dioxide 29 mEq/L (23-29); Chloride 98 mEq/L (98-107); Potassium 4.1 mEq/L (3.5-5.1); Sodium 138 mEq/L (136-145)
[2018-07-31 13:03] LABS: Alanine Aminotransferase 16 Units/L (7-52); Albumin 3.5 g/dL (3.5-5.7); Alkaline Phosphatase 44 Units/L (34-104); Aspartate Amino Transferase 18 Units/L (13-39); Bilirubin,Direct 0.2 mg/dL (0.0-0.2); Bilirubin,Indirect 0.4 mg/dL (0.0-1.2); Bilirubin,Total 0.6 mg/dL (0.3-1.0); Calcium 9.2 mg/dL (8.6-10.3); Globulin 3.5 g/dL (2.4-3.5); Glucose 100 mg/dL (70-105); Lipase 21 Units/L (11-82); Osmolality,Calculated 296 (280-300); eGFR For Non-African Americans 50 (> 60)
--- NOTE | 2018-07-31 14:14 | Emergency Department Note ---
Disposition Clinical Impression: Constipation Abdominal pain Qualifiers: Abdominal location: generalized Qualified Code(s): R10.84 - Generalized abdominal pain Atrial flutter Qualifiers: Atrial flutter type: unspecified Qualified Code(s): I48.92 - Unspecified atrial flutter Sepsis Qualifiers: Sepsis type: sepsis due to unspecified organism Qualified Code(s): A41.9 - Sepsis, unspecified organism Disposition: Admitted As Inpatient Condition: Fair Forms: ED Satisfaction Letter, Work/School Release Time of Disposition: 15:22 General Adult HPI - General Chief complaint: ED Abdominal Pain Stated complaint: Constipation Time Seen by Provider: 07/31/18 12:01 Source: EMS Mode of arrival: EMS Limitations: no limitations Nursing Notes Reviewed: Yes Vital Signs Reviewed: Yes - History of Present Illness HPI Narrative: [facility] of abdominal pain, constipation, increased work of breathing. Patient has had these symptoms on and off for several months with a gotten worse again. He was seen and evaluated 2 weeks ago in the hospital setting and was admitted at that time. Denies any new issues at this point. Denies any chest pain shortness of breath headache vision changes nausea vomiting or diarrhea. No fevers no chills. Onset (ago): day(s) Location: abdomen Radiation: non-radiation Pain Severity: moderate Pain Scale: 4 Quality: aching Consistency: constant Improves with: nothing Worsens with: nothing Associated symptoms: Reports: loss of appetite, other Treatments Prior to Arrival: none - Related Data Home Medications Medication Instructions Recorded Confirmed Acetylcysteine 600 mg PO TIDAC 05/17/18 07/31/18 [P-Lryxmr-v-Cysteine] Amitriptyline HCl 100 mg PO DAILY 05/17/18 07/31/18 Atorvastatin Calcium [Lipitor] 20 mg PO HS 05/17/18 07/31/18 FLUoxetine HCl [Prozac] 20 mg PO DAILY 05/17/18 07/31/18 Finasteride [Proscar] 5 mg PO DAILY 05/17/18 07/31/18 Fish Oil/Dha/Epa [Fish Oil 1,200 1 cap PO DAILY 05/17/18 07/31/18 mg Fish Oil] Fluticasone/Salmeterol [Advair Hfa 1 puff IH DAILY 05/17/18 07/31/18 230-21 Mcg Inhaler] Levothyroxine [Synthroid] 125 mcg PO 0630 05/17/18 07/31/18 Loratadine [Claritin] 10 mg PO DAILY 05/17/18 07/31/18 Lutein 20 mg PO DAILY 05/17/18 07/31/18 Metformin HCl [Glucophage] 1,000 mg PO BID 05/17/18 07/31/18 Ipratropium/Albuterol Neb [Duoneb] 3 ml IH Q6HR 06/01/18 07/31/18 Polyethylene Glycol 3350 [MiraLAX] 17 gm PO DAILY PRN 06/01/18 07/31/18 Furosemide [Lasix] 40 mg PO BID 06/29/18 07/31/18 SitaGLIPtin [Januvia] 100 mg PO DAILY 06/29/18 07/31/18 Umeclidinium Marshall [Incruse 62.5 mcg IH DAILY 06/29/18 07/31/18 Ellipta] Vit A/Vit C/Vit E/Zinc/Copper 1 tab PO DAILY 06/29/18 07/31/18 [Preservision Areds Tablet] PredniSONE [Deltasone] 20 mg PO DAILY 07/31/18 07/31/18 Warfarin [Coumadin] 7 mg PO [id number] 07/31/18 07/31/18 Warfarin [Coumadin] 9 mg PO TH 07/31/18 07/31/18 Previous Rx's Medication Instructions Recorded Insulin DETEMIR [Levemir] 20 unit SQ BID [id number] 06/15/18 Aspirin [Ecotrin] 81 mg PO DAILY 30 Days #30 06/22/18 tablet. Omeprazole 20 mg PO DAILY 30 Days #30 06/22/18 tablet. Gabapentin [Neurontin] 300 mg PO TID #90 capsule 07/04/18 Metoprolol [Lopressor] 50 mg PO BID #60 tablet 07/04/18 Tamsulosin [Flomax] 0.4 mg PO DAILY #30 capsule 07/04/18 Allergies Allergy/AdvReac Type Severity Reaction Status Date / Time No Known Allergies Allergy Verified 05/17/18 20:27 All systems ED: reviewed and negative except as stated. Review of Systems: As Per HPI Constitutional: Denies: fever, chills Cardiovascular: Denies: chest pain, palpitations, dyspnea on exertion, orthopnea Respiratory: Denies: cough, dyspnea, wheezes Gastrointestinal: Reports: abdominal pain, constipation. Denies: nausea, vomiting, diarrhea Genitourinary: Denies: urgency, dysuria, frequency Musculoskeletal: Denies: back pain, neck pain Integumentary: Denies: rash Neurological: Denies: headache Past Medical History - Past Medical History Attestation: Yes The following information was validated with the patient. Source: patient Medical history: Reports: arthritis, atrial fibrillation, COPD, diabetes, GERD, hyperlipidemia, hypertension, thyroid disease, other Surgical history: Reports: cholecystectomy, knee replacement, orthopedic, other , pacemaker Psychiatric history: Reports: no psych history - Social History Smoking Status: Former smoker Smokeless Tobacco Status: No Alcohol use: Reports: none Drug use: Reports: none Physical Exam - General Limitations: no limitations General appearance: alert, in distress, obese - Head Head exam: atraumatic, normocephalic, normal inspection - Eye Eye exam: Present: normal appearance, PERRL, EOMI. Absent: miosis, mydriasis - ENT ENT exam: normal exam, normal oropharynx, mucous membranes moist - Neck Neck exam: Present: normal inspection, full ROM, trachea midline. Absent: tenderness, meningismus, lymphadenopathy - Chest Chest inspection: Present: normal inspection, symmetric chest wall rise. Absent : tenderness - Respiratory Respiratory exam: Present: normal lung sounds bilaterally. Absent: respiratory distress, wheezes, stridor, accessory muscle use - Cardiovascular Cardiovascular exam: Present: normal rhythm, tachycardia, normal heart sounds - Abdominal Exam Abdominal exam: Present: soft, Non-Tender, normal bowel sounds. Absent: tenderness, distention, guarding, rebound, rigidity, diminished bowel sounds, hyperactive bowel sounds, Henson's sign, Rovsing's sign, tenderness at McBurney' s Point - Extremities Exam Extremities exam: Present: normal inspection, full ROM, normal capillary refill , pedal edema. Absent: tenderness - Back Exam Back exam: Present: normal inspection, full ROM. Absent: tenderness - Neurological Exam Neurological exam: Present: alert, oriented X3, CN II-XII intact - Skin Skin exam: Present: warm, dry, intact, normal color Course Course Narrative: Patient seen and examined some arrival. See history of present illness. 78- year-old male presents to the emergency room today from [facility] facility was being treated for multiple chronic medical issues. 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 He has known atrial flutter. On presentation his heart rate was in the 130s. He denies any trauma or injuries or falls. He has been taking HIS prescribed medications. He did have a pacemaker placed approximately 3 months ago at this facility and has not had it interrogated since initial placement. Patient is concerning also with his complaint of constipation and abdominal discomfort for possible intra-abdominal related etiology. Because of these presenting symptoms and complaints as well as the tachycardia patient was CT imaging the head chest x-ray CT the abdomen along with CBC chemistry troponin and BNP and urinalysis. Patient will be started on Cardizem drip with initial bolus of his blood pressure can tolerate the medication for symptomatically controlled atrial fibrillation with rapid ventricular response. Patient and the family were informed and they are comfortable with the plan. We will continue to monitor here as symptomatic control his complete admission process will be established. Patient is otherwise currently stable mentating appropriately. Lungs are clear to auscultation heart is regular but tachycardic abdomen is soft does have diffuse tenderness with no point tenderness guarding rigidity or peritoneal symptoms. No pulsatile masses are noted. Lotrimin swelling is noted but otherwise no other acute etiology - Reevaluation(s) Reevaluation #1: Blood pressure is maintaining stable wall the patient has been titrated up on the Cardizem. His heart rate now is down to 105 to 1:15 with a visible atrial flutter presentation. His lab shows stable presentation this time except for an elevated lactic acid 3.6. Patient denies any infectious etiology this point including productive cough or sputum as well as no urinary symptoms. Patient is on a blood thinner Coumadin at this time with appropriate INR so clinical suspicion for possible ischemic gut is low at this time. When reviewing his previous lactic acids 1 he had prior to leaving the hospital was 2.8 this could be chronic leak at this time. Patient CT imaging of the abdomen is otherwise unremarkable along with the CT imaging the head and chest x-ray. There is concern for bilateral pleural effusions that are enlarged in comparison to previous and as could be exacerbating the atrial response as well as the tachycardia. Patient will be admitted for definitive management and continuation of care. Symptoms are otherwise clinically stabilized here at this point. Hospitals patient admission patient does have an elevated white blood cell count as well as neutrophilia. Patient's INR is 1.5 which is borderline subtherapeutic repeat lactic acid will be collected and a second liter of fluid will be given. No focal infectious etiology is noted at this point so patient does not meet sepsis or severe sepsis yet at this time without a focal source. IV vancomycin and Zosyn will be added our concern for intrathoracic versus intra-abdominal related pathology as well as the patient being a [facility] resident. Disposition will be admission. Patient does have a midline IV access in place in the right upper extremity artery at this point. Pacemaker was interrogated with approximately 4 runs of ventricular tachycardia along with prolonged runs of atrial flutter with rapid ventricular response. Patient will require admission and continuation of care. Fluid resuscitation will be as needed at this point considering he does not meet acute criteria for severe sepsis or septic shock. Patient is slightly more somnolent at the bedside and the family says this happens when he needs to be placed on BiPAP. BiPAP will be brought to the bedside and ABG will be collected. Second IV will be accessed at this time. Time: 14:39 Reevaluation #2: Patient's ABG is unremarkable. BiPAP was placed for symptomatic relief. Hospitals will accept the patient for continuation of care at this time Time: 15:21 Vital Signs Temperature 97.7 F 07/31/18 12:04 Pulse Rate 136 07/31/18 12:04 Respiratory Rate 20 07/31/18 12:04 Blood Pressure 124/84 07/31/18 12:04 O2 Sat by Pulse Oximetry 96 07/31/18 12:04 Temperature 97.7 F 07/31/18 12:04 Pulse Rate 93 07/31/18 15:16 Respiratory Rate 13 07/31/18 15:16 Blood Pressure 123/61 07/31/18 15:16 O2 Sat by Pulse Oximetry 97 07/31/18 15:16 Oxygen Delivery Oxygen Delivery Bipap Medical Decision Making - MDM Narrative Medical decision making narrative: Atrial flutter with rapid ventricular response, constipation, lactic acidosis - Medical Records Medical records reviewed: Yes I reviewed the patient's medical records. - Lab Data Lab results reviewed: Yes I reviewed the patient's lab results. Result diagrams: 07/31/18 12:19 07/31/18 12:19 Lab Results 07/31/18 07/31/18 07/31/18 Range/Units 12:19 12:19 12:19 WBC 16.4 H (4.3-11.1) K/mcL RBC 4.47 (4.19-5.50) M/mcL Hgb 12.7 L (12.9-16.9) g/dL Hct 40.7 (37.5-50.1) % MCV 91.1 (83.0-100.0) fL MCH 28.4 (28.0-33.3) pg MCHC 31.2 L (31.6-35.5) g/dL RDW 19.2 H (11.5-14.5) % Plt Count 250 (140-400) K/mcL MPV 10.8 (9.4-12.4) fL Immature Gran % 1.0 (0-4) % Seg Neutrophils % 87.1 % Lymphocytes % 4.6 % Monocytes % 6.4 % Eosinophils % 0.7 % Basophils % 0.2 % Neutrophils # 14.3 H (1.6-8.9) K/mcL Lymphocytes # 0.8 (0.6-4.6) K/mcL Monocytes # 1.1 (0.0-1.3) K/mcL Eosinophils # 0.1 (0.0-0.6) K/mcL Basophils # 0.0 (0.0-0.2) K/mcL PT 16.9 H (9.4-12.1) Seconds INR 1.5 Sample Site ABG pH (7.32-7.45) pH Units ABG pCO2 (35-45) mmHg ABG pO2 (85-104) mmHg ABG HCO3 (21-27) mEq/L ABG Total CO2 (20-26) mEq/L ABG O2 Saturation (95-98) % ABG Base Excess (-2 to 3) mEq/L Clyde Test O2 Delivery Device Inspired O2 (1-15=lpm [id number]=%) Sodium 138 (136-145) mEq/L Potassium 4.1 (3.5-5.1) mEq/L Chloride 98 (98-107) mEq/L Carbon Dioxide 29 (23-29) mEq/L BUN 40 H (8-23) mg/dL Creatinine 1.37 H (0.70-1.30) mg/dL Est GFR ( Amer) > 60 (> 60) Est GFR (Non-Af Amer) 50 L (> 60) BUN/Creatinine Ratio 29 H (6-26) Glucose 100 (70-105) mg/dL Calculated Osmolality 296 (280-300) Lactic Acid (0.5-2.2) mmol/L Calcium 9.2 (8.6-10.3) mg/dL Total Bilirubin 0.6 (0.3-1.0) mg/dL Direct Bilirubin 0.2 (0.0-0.2) mg/dL Indirect Bilirubin 0.4 (0.0-1.2) mg/dL AST 18 (13-39) Units/L ALT 16 (7-52) Units/L Alkaline Phosphatase 44 (34-104) Units/L Troponin I < 0.03 (< 0.04) ng/mL Serum Total Protein 7.0 (6.4-8.9) g/dL Albumin 3.5 (3.5-5.7) g/dL Globulin 3.5 (2.4-3.5) g/dL Albumin/Globulin Ratio 1.0 L (1.1-2.2) Lipase 21 (11-82) Units/L Urine Color (Yellow) Urine Clarity (Clear) Urine pH (5.0-8.0) pH Units Ur Specific Clancy (1.010-1.025) Urine Protein (Neg-Trace) mg/dL Urine Glucose (UA) (Normal) mg/dL Urine Ketones (Negative) mg/dL Urine Blood (Negative) Urine Nitrite (Negative) Urine Bilirubin (Negative) Urine Urobilinogen (Normal) mg/dL Ur Leukocyte Esterase (Negative) Urine Microscopic RBC (0-3) per hpf Urine Microscopic WBC (0-3) per hpf Ur Squamous Epith Cells (None-Few) per lpf Urine Bacteria (None-Few) per hpf Hyaline Casts (None-Few) per lpf Ur Culture Indicated? (NO) 07/31/18 07/31/18 07/31/18 Range/Units 12:19 12:21 15:07 WBC (4.3-11.1) K/mcL RBC (4.19-5.50) M/mcL Hgb (12.9-16.9) g/dL Hct (37.5-50.1) % MCV (83.0-100.0) fL MCH (28.0-33.3) pg MCHC (31.6-35.5) g/dL RDW (11.5-14.5) % Plt Count (140-400) K/mcL MPV (9.4-12.4) fL Immature Gran % (0-4) % Seg Neutrophils % % Lymphocytes % % Monocytes % % Eosinophils % % Basophils % % Neutrophils # (1.6-8.9) K/mcL Lymphocytes # (0.6-4.6) K/mcL Monocytes # (0.0-1.3) K/mcL Eosinophils # (0.0-0.6) K/mcL Basophils # (0.0-0.2) K/mcL PT (9.4-12.1) Seconds INR Sample Site L Radial ABG pH 7.45 (7.32-7.45) pH Units ABG pCO2 37 (35-45) mmHg ABG pO2 70 L (85-104) mmHg ABG HCO3 25 (21-27) mEq/L ABG Total CO2 27 H (20-26) mEq/L ABG O2 Saturation 95 (95-98) % ABG Base Excess 1 (-2 to 3) mEq/L Clyde Test N/A O2 Delivery Device Cannula Inspired O2 3.0 (1-15=lpm [id number]=%) Sodium (136-145) mEq/L Potassium (3.5-5.1) mEq/L Chloride (98-107) mEq/L Carbon Dioxide (23-29) mEq/L BUN (8-23) mg/dL Creatinine (0.70-1.30) mg/dL Est GFR ( Amer) (> 60) Est GFR (Non-Af Amer) (> 60) BUN/Creatinine Ratio (6-26) Glucose (70-105) mg/dL Calculated Osmolality (280-300) Lactic Acid 3.6 H (0.5-2.2) mmol/L Calcium (8.6-10.3) mg/dL Total Bilirubin (0.3-1.0) mg/dL Direct Bilirubin (0.0-0.2) mg/dL Indirect Bilirubin (0.0-1.2) mg/dL AST (13-39) Units/L ALT (7-52) Units/L Alkaline Phosphatase (34-104) Units/L Troponin I (< 0.04) ng/mL Serum Total Protein (6.4-8.9) g/dL Albumin (3.5-5.7) g/dL Globulin (2.4-3.5) g/dL Albumin/Globulin Ratio (1.1-2.2) Lipase (11-82) Units/L Urine Color Dark Yellow (Yellow) Urine Clarity Cloudy A (Clear) Urine pH 5.5 (5.0-8.0) pH Units Ur Specific Clancy 1.016 (1.010-1.025) Urine Protein Trace (Neg-Trace) mg/dL Urine Glucose (UA) Normal (Normal) mg/dL Urine Ketones Negative (Negative) mg/dL Urine Blood Large H (Negative) Urine Nitrite Negative (Negative) Urine Bilirubin Small H (Negative) Urine Urobilinogen Normal (Normal) mg/dL Ur Leukocyte Esterase Moderate H (Negative) Urine Microscopic RBC 50-100 H (0-3) per hpf Urine Microscopic WBC 5-15 H (0-3) per hpf Ur Squamous Epith Cells Moderate H (None-Few) per lpf Urine Bacteria None Seen (None-Few) per hpf Hyaline Casts None Seen (None-Few) per lpf Ur Culture Indicated? YES A (NO) - Radiology Data Radiology results reviewed: Yes I reviewed the patient's radiology results. Critical Care Time Critical Care Time: Yes Total Critical Care Time: 45 Attestation: Critical care performed: Time is exclusive of separately billable procedures. Time includes: direct patient care, patient reassessment, coordination of patient care, interpretation of data (laboratory data, radiology data, and respiratory data), review of patient's medical records, medical consultation and documentation of patient care. Procedures included in critical care time: Procedures excluded from critical care time:
[2018-07-31] MEDS ORDERED: Piperacillin/Tazobactam 3.375 GM in 0.9 % Sodium Chloride Mini Bag 100 ML IVPB ONE (14:39)
[2018-07-31] MEDS ORDERED: *HR* Heparin 5,000 UNIT/ML VIAL IVP ONE (14:46)
[2018-07-31] MEDS ORDERED: *HR* Heparin 5,000 UNIT/ML VIAL IVP PRN ×2 (14:46)
[2018-07-31] MEDS ORDERED: Heparin 25,000 UNIT/500 ML D5W 25,000 UNIT/500 ML BAG IVC ONE (15:10)
[2018-07-31 15:15] LABS: ABG Base Excess 1 mEq/L (-2 to 3); ABG HCO3 25 mEq/L (21-27); ABG Oxygen Saturation 95 % (95-98); ABG PCO2 37 mmHg (35-45); ABG PH 7.45 pH Units (7.32-7.45); ABG PO2 70 mmHg (85-104); ABG TCO2 27 mEq/L (20-26)
[2018-07-31] MEDS: Heparin 25,000 UNIT/500 ML D5W 25,000 UNIT/500 ML BAG IVC SCH (15:58)
[2018-07-31] MEDS ORDERED: Naloxone 0.4 MG/ML INJ IVP PRN (16:48)
[2018-07-31] MEDS ORDERED: *HR* Warfarin 5 MG TABLET PO SCH (17:15)
--- NOTE | 2018-07-31 17:18 | Internal Med History&Physical ---
Date of Encounter: 07/31/18 Time of Encounter: 17:07 Internal Medicine - H&P: HPI Chief complaint: Elevated Heartrate, Abdominal pain Admitted From: Home Plans for Post Hospital Care: Transfer Inp Rehab Fac History of present illness: Mr. Doe is a 78 year old male with multiple comorbidites who presents from ECF due to tachycardia. Pt found to be in afib/aflutter with RVR and given IV cardizem and put on cardizem gtt. PPM was interegated in ED and showed prolonged runs of aflutter with RVR and 4 runs of VT. Also was put on heparin gtt due to subtheraputic INR. There are also concerns that the patient had increased work of breathing and abdominal pain. Pt does admit to constipation but denies any current abdominal pain. Pt and state his breathing is similar to how he normally breathes however have noticed a recent productive cough but denies fevers. states he is always somewhat sleepy/lethargic however this may or may not be slightly worse than normal. Pt recently had [place] changed and is to keep for 3 additional weeks due to bladder outlet obstruction. Recently admitted a few weeks ago to this facility. Pt found to have elevated WBC and Lactic acid and was given 2LNS and IV zosyn and vanco emperically. Imaging of chest and abdomen largely unremarkable other than slightly larger pleural effusion and constipation. Currently the patient is somnolent but arousable and alert and oriented. Patient denies any chest pain or shortness of breath, nausea, vomiting, diarrhea. Patient lives in a nursing facility for rehabilitation. Past Med Surg Social Fam HX - Past Medical History Medical history: arthritis, atrial fibrillation, COPD, diabetes, GERD, hyperlipidemia, hypertension, thyroid disease, other Additional medical history: OA Psychiatric history: no psych history - Past Surgical History Surgical History: cholecystectomy, knee replacement, orthopedic, other, pacemaker Additional surgical history: Gallbladder, bilateral knee replacement, Appendectomy, Right shoulder. - Social History Smoking Status: Former smoker Smokeless Tobacco Status: No Alcohol use: none Drug use: none - Family History Father Adopted: No Family Member Ethnicity: Non- Living Status: Hx Family Cardiac Disorders: No Hx Family Respiratory Disorders: Yes (Asbestosis) Hx Family Cancer: Yes (Lung CA) Hx Family GI Disorders: No Hx Family Endocrine Disorder: No Hx Family Neuromuscular Disorders: No Hx Family Neurologic Disorders: No Hx Family HEENT Disorders: No Hx Family Autoimmune Disorders: No Internal Medicine - H&P: Meds Acetylcysteine [Q-Sjlfxb-e-Cysteine] 600 mg PO TIDAC 05/17/18 [History] Amitriptyline HCl 100 mg PO DAILY 05/17/18 [History] Atorvastatin Calcium [Lipitor] 20 mg PO HS 05/17/18 [History] FLUoxetine HCl [Prozac] 20 mg PO DAILY 05/17/18 [History] Finasteride [Proscar] 5 mg PO DAILY 05/17/18 [History] Fish Oil/Dha/Epa [Fish Oil 1,200 mg Fish Oil] 1 cap PO DAILY 05/17/18 [History] Fluticasone/Salmeterol [Advair Hfa 230-21 Mcg Inhaler] 1 puff IH DAILY 05/17/18 [History] Levothyroxine [Synthroid] 125 mcg PO 0630 05/17/18 [History] Loratadine [Claritin] 10 mg PO DAILY 05/17/18 [History] Lutein 20 mg PO DAILY 05/17/18 [History] Metformin HCl [Glucophage] 1,000 mg PO BID 05/17/18 [History] Ipratropium/Albuterol Neb [Duoneb] 3 ml IH Q6HR 06/01/18 [History] Polyethylene Glycol 3350 [MiraLAX] 17 gm PO DAILY PRN 06/01/18 [History] Insulin DETEMIR [Levemir] 20 unit SQ BID [id number] 06/15/18 [Rx] Aspirin [Ecotrin] 81 mg PO DAILY 30 Days #30 tablet. 06/22/18 [Rx] Omeprazole 20 mg PO DAILY 30 Days #30 tablet. 06/22/18 [Rx] Furosemide [Lasix] 40 mg PO BID 06/29/18 [History] SitaGLIPtin [Januvia] 100 mg PO DAILY 06/29/18 [History] Umeclidinium [place] [Incruse Ellipta] 62.5 mcg IH DAILY 06/29/18 [History] Vit A/Vit C/Vit E/Zinc/Copper [Preservision Areds Tablet] 1 tab PO DAILY [History] Gabapentin [Neurontin] 300 mg PO TID #90 capsule 07/04/18 [Rx] Metoprolol [Lopressor] 50 mg PO BID #60 tablet 07/04/18 [Rx] Tamsulosin [Flomax] 0.4 mg PO DAILY #30 capsule 07/04/18 [Rx] PredniSONE [Deltasone] 20 mg PO DAILY 07/31/18 [History] Warfarin [Coumadin] 7 mg PO [id number] 07/31/18 [History] Warfarin [Coumadin] 9 mg PO TH 07/31/18 [History] 3 Allergy/AdvReac Type Severity Reaction Status Date / Time No Known Allergies Allergy Verified 05/17/18 20:27 All Systems PM: A 10-system review of systems was performed and is negative for pertinent findings except as documented above in the HPI. Review of systems: 10 point review of systems obtained and is otherwise negative other than described in history of present illness - Constitutional Vitals: Temp Pulse Resp BP Pulse Ox 97.7 F 78 15 132/59 97 07/31/18 12:04 07/31/18 16:44 07/31/18 16:44 07/31/18 16:44 07/31/18 16:44 Exam: Constitutional: No acute distress, Alert Psych: AAO x2-3 , somnolent but arousable and appropriate HEENT: NCAT, EOMI Neck: supple, no JVD Cardio: Irregularly irregular with controlled rate Resp: decreased breath sounds in bases, otherwise clear Abd: soft, non tender/non distended, positive bowel sounds, no gaurding/reboud/ ridgitity Extremities: no clubbing/cyanosis/edema appreciated venous stasis of lower extremities; L>R Neuro: no focal deficits appreciated Lymph: no cervical/supraclavicular adenopahty apprecitated Internal Med - H&P Results - Labs CBC & Chem 7: 07/31/18 17:00 07/31/18 12:19 - Assessment and plan (1) Atrial flutter with rapid ventricular response Current Visit: Yes Status: Acute Assessment and plan: Pt presented from [facility] for atrial flutter with RVR -PPM interregated in ED revealed prolonged runs of atrial flutter with RVR and 4 runs of VT per ED documentation -On cardizem gtt with HR now 70-90s -Wean cardizem gtt after lopressor resumed -Resume Lopressor and increase as BP allows -INR supratheraputic; Hep gtt started and will dc when inr therapeutic -Consult cardiology for evaluation - reports orthostatic hypotension at ECF -may need antiarrythmic? if bp doesnt allow increase of rate controlling medications; d/w cardio tomorrow (2) Sepsis Current Visit: Yes Status: Acute Assessment and plan: Pt presented meeting SIRS criteria with Lactic, leukocysosis and tachycardia -unsure of infectious etiology as pt has been afebrile -however states recent development of productive sputum -check sputum culture -with snf [place]; changed recently but could be infected; UA contaminated -Obtain clean u/a and culture -Zosyn/Vanco started emperically; will continue for now covering respiratory and sources -Lactic improved from 3.6 to 2.8 after IVF; will repeat in AM -check procalcitionin -Pts states she does not think he has been on steroids recently but on med rec; she will bring in meds tomorrow; could be contributing to leukocytosis which appears chronic -HR controlled with cardizem gtt due to aflutter/rvr -check blood culture Qualifiers: Sepsis type: sepsis due to unspecified organism Qualified Code(s): A41.9 - Sepsis, unspecified organism (3) CHAS (acute kidney injury) Current Visit: Yes Status: Acute Assessment and plan: Pt presents with serum creatinine of 1.37 with recent baseline around 1.0-1.1 -Serum Cr noted to be 1.33 on 07/23/18 which is similar to todays presentation -recent CHAS with bladder outlet obstruction -given 2L ivf in ED -will check BMP in am. -if not improving will check urine studies (4) Hematuria Current Visit: Yes Status: Acute Assessment and plan: -Hematuria noted on UA -Recent hematuria with bladder outlet obstruction -Continue urology f/u outpatient -monitor cbc in am Qualifiers: Hematuria type: idiopathic Glomerular morphologic changes: unspecified whether glomerular morphologic changes present Qualified Code(s): N02.9 - Recurrent and persistent hematuria with unspecified morphologic changes (5) Abdominal pain Current Visit: Yes Status: Acute Assessment and plan: -Likely 2/2 constipation -Denies abd pain currently -Imaging consistent with constipation -Miralax and colace -Enema tomorrow if needed Qualifiers: Abdominal location: generalized Qualified Code(s): R10.84 - Generalized abdominal pain (6) KYLEE (obstructive sleep apnea) Current Visit: Yes Status: Chronic Assessment and plan: Bipap qhs and prn (7) DVT prophylaxis Current Visit: Yes Status: Acute Assessment and plan: Hep gtt/coumadin - Time Spent With Patient Total time spent is greater than 50% in coordination of care (as documented) at patient's floor/unit and/or counseling patient: Greater than 35 minutes
[2018-07-31 17:29] LABS: Basophils % 0.2 %; Eosinophils % 0.1 %; Hematocrit 35.4 % (37.5-50.1); Hemoglobin 11.2 g/dL (12.9-16.9); Immature Granulocytes % 1.7 % (0-4); Lymphocytes # 0.6 K/mcL (0.6-4.6); Lymphocytes % 4.4 %; Mean Corpuscular HGB Conc 31.6 g/dL (31.6-35.5); Mean Corpuscular Volume 91.7 fL (83.0-100.0); Mean Platelet Volume 10.6 fL (9.4-12.4); Monocytes # 0.5 K/mcL (0.0-1.3); Neutrophils # 11.7 K/mcL (1.6-8.9); Platelet Count 215 K/mcL (140-400); Red Blood Count 3.86 M/mcL (4.19-5.50); Red Cell Distribution Width 19.1 % (11.5-14.5); Segmented Neutrophils % 89.6 %
[2018-07-31] MEDS ORDERED: Insulin DETEMIR 100 UNIT/ML X5UNITS SQ SCH (21:00)
--- NOTE | 2018-07-31 21:29 | Electrocardiograph Report ---
[place] Code Blue Test Date: 2018-07-31 Pat Name: Natanael Doe Department: EXAM17 Room: 2NE31 Gender: M Release Coordinator: : 1940 Requested By: Farhad Pandya Order Number: [id number] Reading MD: Mustapha Soriano Measurements Intervals Harper Rate: 135 P: 0 NC: 85 QRS: 75 QRSD: 93 T: 258 QT: 277 QTc: 416 Interpretive Statements Atrial Flutter, 3:1 conduction with RVR Repolarization abnormality, prob rate related Diffuse ST changes, consider ischemia, correlate clinically Electronically Signed On 07-31-2018 21:27:37 EDT by Mustapha Soriano
[2018-07-31] MEDS: Insulin LISPRO 300 UNITS/3 ML VIAL SQ SCH ×2 (21:49→21:50)
[2018-07-31] MEDS: Gabapentin 300 MG CAPSULE PO SCH (22:08)
[2018-07-31] MEDS: Ipratropium/Albuterol Neb 3 ML IH SCH (22:18)
[2018-08-01 00:22] LABS: Bilirubin,Urine Negative (Negative); Blood,Urine Large (Negative); Clarity,Urine Cloudy (Clear); Color,Urine Yellow (Yellow); Glucose,Urine (UA) Normal (Normal); Ketones,Urine Negative (Negative); Leukocyte Esterase,Urine Large (Negative); Nitrite,Urine Negative (Negative); PH,Urine 5.5 pH Units (5.0-8.0); Protein,Urine Trace mg/dL (Neg-Trace); Specific Gravity,Urine 1.019 (1.010-1.025); Urobilinogen,Urine Normal (Normal)
[2018-08-01 00:25] LABS: Bacteria,Urine None Seen per hpf (None-Few); RBC,Urine TNTC per hpf (0-3); Squamous Epithelial Cell,Urine Many per lpf (None-Few); WBC,Urine 15-30 per hpf (0-3)
[2018-08-01 00:36] LABS: Hyaline Casts,Urine Few per lpf (None-Few)
[2018-08-01] MEDS: Piperacillin/Tazobactam 3.375 GM in 0.9 % Sodium Chloride Mini Bag 100 ML IVPB SCH ×3 (00:48→17:51)
[2018-08-01] MEDS: Ipratropium/Albuterol Neb 3 ML IH SCH ×4 (03:49→21:36)
[2018-08-01 04:42] LABS: INR 1.7; Prothrombin Time 18.7 Seconds (9.4-12.1)
[2018-08-01 04:56] LABS: BUN/Creatinine Ratio 28 (6-26); Blood Urea Nitrogen 30 mg/dL (8-23); Calcium 8.3 mg/dL (8.6-10.3); Carbon Dioxide 26 mEq/L (23-29); Chloride 104 mEq/L (98-107); Glucose 74 mg/dL (70-105); Magnesium 1.8 mg/dL (1.6-2.6); Osmolality,Calculated 295 (280-300); Potassium 3.9 mEq/L (3.5-5.1); Sodium 140 mEq/L (136-145); eGFR For Non-African Americans > 60 (> 60)
[2018-08-01] MEDS ORDERED: *HR* Dextrose 50 % in Water (Syg) 50 ML SYRINGE ONE (05:20)
[2018-08-01] MEDS ORDERED: D5% in Water 1,000 ML IVC PRN (05:34)
[2018-08-01] MEDS ORDERED: Dextrose Gel 15 GM/37.5 ML TUBE PO PRN ×2 (05:34)
[2018-08-01] MEDS ORDERED: *HR* Dextrose 50 % in Water (Syg) 50 ML SYRINGE IVP PRN (05:34)
[2018-08-01] MEDS: FLUoxetine 20 MG CAPSULE PO SCH (08:18)
[2018-08-01] MEDS: Finasteride 5 MG TABLET PO SCH (08:18)
[2018-08-01] MEDS: Aspirin Enteric Coated 81 MG Tablet PO SCH (08:18)
[2018-08-01] MEDS: Gabapentin 300 MG CAPSULE PO SCH ×3 (08:18→20:21)
[2018-08-01] MEDS: Insulin LISPRO 300 UNITS/3 ML VIAL SQ SCH ×4 (08:19→21:00)
[2018-08-01] MEDS: Loratadine 10 MG TABLET PO SCH (08:19)
[2018-08-01] MEDS: Insulin DETEMIR 100 UNIT/ML X5UNITS SQ SCH ×2 (08:20→21:00)
[2018-08-01] MEDS ORDERED: Aminoglycoside Consult 1 EACH MC ONE (08:37)
[2018-08-01 08:43] LABS: Basophils % 0.2 %; Eosinophils # 0.1 K/mcL (0.0-0.6); Eosinophils % 0.9 %; Hematocrit 35.2 % (37.5-50.1); Hemoglobin 10.9 g/dL (12.9-16.9); Immature Granulocytes % 1.4 % (0-4); Lymphocytes # 1.4 K/mcL (0.6-4.6); Lymphocytes % 11.6 %; Mean Corpuscular Hemoglobin 28.5 pg (28.0-33.3); Mean Corpuscular Volume 91.9 fL (83.0-100.0); Mean Platelet Volume 10.6 fL (9.4-12.4); Monocytes # 0.9 K/mcL (0.0-1.3); Monocytes % 7.3 %; Neutrophils # 9.1 K/mcL (1.6-8.9); Platelet Count 232 K/mcL (140-400); Red Blood Count 3.83 M/mcL (4.19-5.50); Red Cell Distribution Width 19.2 % (11.5-14.5); Segmented Neutrophils % 78.6 %
--- NOTE | 2018-08-01 10:11 | Internal Med Progress Note ---
Hospitalist Progress Note - Encounter Date of Encounter: 08/01/18 Time of Encounter: 10:09 - Subjective Interval History: Patient seen and examined at bedside. Patient no acute overnight events. Patient much more alert today. Patient states that he does not remember seeing me yesterday. Patient states that he feels reasonably well he is just weak however this is not changed from the last several months. Heart rate is been controlled overnight. Patient denies any chest pain, shortness of breath, nausea, vomiting, diarrhea. Afebrile. - Exam Vitals: Temp Pulse Resp BP Pulse Ox 97.5 F L 68 14 118/66 98 08/01/18 07:32 08/01/18 07:32 08/01/18 07:32 08/01/18 07:32 08/01/18 07:32 Exam: Constitutional: No acute distress, Alert Psych: AAO x3 , much more alert HEENT: NCAT, EOMI Neck: supple, no JVD Cardio: Irregularly irregular with controlled rate Resp: decreased breath sounds in bases, otherwise clear Abd: soft, non tender/non distended, positive bowel sounds Extremities: no clubbing/cyanosis/edema appreciated venous stasis of lower extremities; L>R unchanged Neuro: no focal deficits appreciated - Assessment and Plan (1) Atrial flutter with rapid ventricular response Current Visit: Yes Status: Acute Assessment and Plan: Pt presented from [facility] for atrial flutter with RVR -PPM interregated in ED revealed prolonged runs of atrial flutter with RVR and 4 runs of VT per ED documentation -cardizem gtt weaned off, HR controlled -continue lopressor, may be able to increase as bp seems improved -INR supratheraputic; Hep gtt started and will dc when inr therapeutic -cardio eval pending - reports orthostatic hypotension at [facility] (2) Sepsis Current Visit: Yes Status: Acute Assessment and Plan: Pt presented meeting SIRS criteria with Lactic, leukocysosis and tachycardia -unsure of infectious etiology as pt has been afebrile -however states recent development of productive sputum; patient denies this today -with half-way [place]; changed recently but could be infected; UA contaminated -Obtain clean u/a and culture -> ordered -Zosyn/Vanco started emperically; will continue for now covering respiratory and sources; higher likelyhood of UTI -Lactic improved from 3.6 to 2.8 after IVF; now normal -check procalcitionin -> -Pts states she does not think he has been on steroids recently but on med rec; she will bring in meds today; could be contributing to leukocytosis which appears chronic but improving today -HR controlled -check blood culture -> ngtd (3) CHAS (acute kidney injury) Current Visit: Yes Status: Acute Assessment and Plan: Pt presents with serum creatinine of 1.37 at admission with recent baseline around 1.0-1.1 -Serum Cr noted to be 1.33 on 07/23/18 which is similar to todays presentation -recent CHAS with bladder outlet obstruction -given 2L ivf in ED -Serum Cr at baseline today; [place] with yellow urine (4) Hematuria Current Visit: Yes Status: Acute Assessment and Plan: -Hematuria noted on UA -Recent hematuria with bladder outlet obstruction -Continue urology f/u outpatient -monitor cbc in am; hbg stable (5) Abdominal pain Current Visit: Yes Status: Acute Assessment and Plan: -Likely 2/2 constipation -Denies abd pain currently -Imaging consistent with constipation -Miralax and colace -1 bm reported (6) KYLEE (obstructive sleep apnea) Current Visit: Yes Status: Chronic Assessment and Plan: Bipap qhs and prn (7) DVT prophylaxis Current Visit: Yes Status: Acute Assessment and Plan: Hep gtt/coumadin DVT Prophylaxis: hep gtt/coumadin - Time Spent with Patient Total time spent is greater than 50% in coordination of care (as documented) at patient's floor/unit and/or counseling patient: 25 - 35 minutes Plan of Care Discussed with: patient Internal Medicine: Result - Labs CBC & Chem 7: 08/01/18 08:05 08/01/18 04:08 Labs: Short CBC 07/31/18 08/01/18 Range/Units 17:00 08:05 WBC 13.1 H 11.6 H (4.3-11.1) K/mcL Hgb 11.2 L D 10.9 L (12.9-16.9) g/dL Hct 35.4 L 35.2 L (37.5-50.1) % Plt Count 215 232 (140-400) K/mcL Neutrophils # 11.7 H 9.1 H (1.6-8.9) K/mcL BMP 08/01/18 04:08 Sodium 140 Potassium 3.9 Chloride 104 Carbon Dioxide 26 BUN 30 H Creatinine 1.08 Glucose 74 Calcium 8.3 L Urine 07/31/18 Range/Units 23:50 Urine Color Yellow (Yellow) Urine Clarity Cloudy A (Clear) Urine pH 5.5 (5.0-8.0) pH Units Ur Specific [place] 1.019 (1.010-1.025) Urine Protein Trace (Neg-Trace) mg/dL Urine Glucose (UA) Normal (Normal) mg/dL - ABG Interpretation ABG results: ABG ABG pH 7.45 pH Units (7.32-7.45) 07/31/18 15:07 ABG pCO2 37 mmHg (35-45) 07/31/18 15:07 ABG pO2 70 mmHg (85-104) L 07/31/18 15:07 ABG O2 Saturation 95 % (95-98) 07/31/18 15:07 PT/INR, D-dimer PT 18.7 Seconds (9.4-12.1) H 08/01/18 04:08 Consult Discharge Plan - Plan Referrals: Shayy Rodgers MD [Primary Care Provider] - (2) Sepsis Qualifiers: Sepsis type: sepsis due to unspecified organism Qualified Code(s): A41.9 - Sepsis, unspecified organism (4) Hematuria Qualifiers: Hematuria type: idiopathic Glomerular morphologic changes: unspecified whether glomerular morphologic changes present Qualified Code(s): N02.9 - Recurrent and persistent hematuria with unspecified morphologic changes (5) Abdominal pain Qualifiers: Abdominal location: generalized Qualified Code(s): R10.84 - Generalized abdominal pain
--- NOTE | 2018-08-01 10:29 | Cardiology Consult Note ---
<Dm Mendosa R - Last Filed: 08/01/18 12:16> Date of Encounter: 08/01/18 Time of Encounter: 10:28 Assessment and Plan (1) Atrial flutter with rapid ventricular response Current Visit: Yes Status: Chronic Known A-Fib/Flutter. On Lopressor 50mg BID at home for rate control and anticoagulated on Coumadin--INR 1.7, on Heparin gtt. Presented A-Flutter RVR rate 130s from ECF, given IV cardizem bolus and started on gtt and HR control was achieved. 12 hr tele AVG HR 77 A-flutter. Currently off Cardizem gtt. Will start low dose PO Cardizem CD 120mg daily. Continue Lopressor 50mg BID. TTE 06/18/18 Suboptimal study due to poor image quality. AF with RVR. LV systolic function low normal to mildly reduced function. RV not well visualized Mild TR, SD. No PHTN based on TR obtained. PPM interrogated. Pt is in AFib/Fl 73.9% of the time. One brief episode NSVT 06/21. (2) Diastolic CHF Current Visit: Yes Status: Acute Known hx of chronic diastolic CHF. On Lasix 40mg BID PO at home. Lasix currently held due to mild CHAS on admission, renal function now normalized. CXR Slightly improved airspace opacity in the right lung. Persistent small bilateral pleural effusions with adjacent atelectasis. ABD/Pelvic CT Right larger than left pleural effusions with adjacent atelectasis. Pt reports dyspnea recently worsened. Resume PO Lasix and will discuss with Dr. Husain if IV diuresis is warranted. Qualifiers: Heart failure chronicity: chronic Qualified Code(s): I50.32 - Chronic diastolic (congestive) heart failure Discussion w patient/family: The assessment and plan as outlined above was discussed with the patient and/or family members who expressed understanding and agreement. All questions were answered. Thank you for involving us in the care of your patient. Please call with any questions. I will discuss all the above with Dr. Husain and make changes as necessary. History of Present Illness Consult date: 08/01/18 Consult reason: A-Flutter Chief complaint: dyspnea, weakness History of present illness: Mr. Doe is a 78 year old male 78-year-old with PMH of supplemental oxygen- dependent lung disease, complete heart block s/p PPM 04/2018, chronic diastolic heart failure, essential HTN, DM II, HLD, and morbid obesity. He was discharged from the hospital on 07/04/2018 after being treated for acute on chronic respiratory insufficiency due to acute COPD exacerbation and diastolic CHF. He was also treated for AF with RVR during that hospital stay. Patient was started on beta sami and placed on Coumadin therapy. He has been at an [facility] for short term rehab and was sent from ECF to ED for tachycardia. Pt found to be in A- Flutter with RVR and given IV cardizem and put on cardizem gtt--since stopped. PPM was interegated in ED and showed A-Fib/flutter 73.9% of the time, 1 episode of NSVT that lasted 1 second on 06/21/18. INR 1.5--started on heparin gtt. Cardiology consulted for further recs. Pt endorses dyspnea. Denies chest pain or palpitations. Previous testing: TTE 06/18/2018: Suboptimal study due to poor image quality. AF with RVR. LV systolic function low normal to mildly reduced function. RV not well visualized Mild TR, SD. No PHTN based on TR obtained. Limited TTE 06/10/2018: LVEF 50%. No LV thrombus. Normal RV size and function. No pericardial effusion. TTE 12/16/2016: LVEF 55-60%. Normal LV size and function. Moderate diastolic dysfunction. Grossly normal RV function. RVSP normal at 15. Mild pulmonic regurgitation. Past Med Surg Social Fam HX - Past Medical History Medical history: arthritis, atrial fibrillation, COPD, diabetes, GERD, hyperlipidemia, hypertension, thyroid disease, other Additional medical history: OA, PE Psychiatric history: no psych history - Past Surgical History Surgical History: cholecystectomy, knee replacement, orthopedic, other, pacemaker Additional surgical history: Gallbladder, bilateral knee replacement, Appendectomy, Right shoulder, heart cath with no stent placement. - Social History Smoking Status: Former smoker Smokeless Tobacco Status: No Alcohol use: none Drug use: none - Family History Mother Living Status: Age at : 78 Cause of : Cancer Hx Family Cancer: Yes (Metastatic breast cancer) Hx Family Endocrine Disorder: Yes (DM) Father Adopted: No Family Member Ethnicity: Non- Living Status: Age at : 78 Cause of : Lung ca Hx Family Cardiac Disorders: No Hx Family Respiratory Disorders: Yes (Asbestosis) Hx Family Cancer: Yes (Lung CA) Hx Family GI Disorders: No Hx Family Endocrine Disorder: No Hx Family Neuromuscular Disorders: No Hx Family Neurologic Disorders: No Hx Family HEENT Disorders: No Hx Family Autoimmune Disorders: No Hx Family Reproductive Disorders: No Hx Family Psychosocial Disorders: No Hx Family Medical Disorders: No Medications and Allergies Acetylcysteine [Z-Mhqtlk-q-Cysteine] 600 mg PO TIDAC 05/17/18 [History] Amitriptyline HCl 100 mg PO DAILY 05/17/18 [History] Atorvastatin Calcium [Lipitor] 20 mg PO HS 05/17/18 [History] FLUoxetine HCl [Prozac] 20 mg PO DAILY 05/17/18 [History] Finasteride [Proscar] 5 mg PO DAILY 05/17/18 [History] Fish Oil/Dha/Epa [Fish Oil 1,200 mg Fish Oil] 1 cap PO DAILY 05/17/18 [History] Fluticasone/Salmeterol [Advair Hfa 230-21 Mcg Inhaler] 1 puff IH DAILY 05/17/18 [History] Levothyroxine [Synthroid] 125 mcg PO 0630 05/17/18 [History] Loratadine [Claritin] 10 mg PO DAILY 05/17/18 [History] Lutein 20 mg PO DAILY 05/17/18 [History] Metformin HCl [Glucophage] 1,000 mg PO BID 05/17/18 [History] Ipratropium/Albuterol Neb [Duoneb] 3 ml IH Q6HR 06/01/18 [History] Polyethylene Glycol 3350 [MiraLAX] 17 gm PO DAILY PRN 06/01/18 [History] Insulin DETEMIR [Levemir] 20 unit SQ BID [id number] 06/15/18 [Rx] Aspirin [Ecotrin] 81 mg PO DAILY 30 Days #30 tablet. 06/22/18 [Rx] Omeprazole 20 mg PO DAILY 30 Days #30 tablet. 06/22/18 [Rx] Furosemide [Lasix] 40 mg PO BID 06/29/18 [History] SitaGLIPtin [Januvia] 100 mg PO DAILY 06/29/18 [History] Umeclidinium [place] [Incruse Ellipta] 62.5 mcg IH DAILY 06/29/18 [History] Vit A/Vit C/Vit E/Zinc/Copper [Preservision Areds Tablet] 1 tab PO DAILY [History] Gabapentin [Neurontin] 300 mg PO TID #90 capsule 07/04/18 [Rx] Metoprolol [Lopressor] 50 mg PO BID #60 tablet 07/04/18 [Rx] Tamsulosin [Flomax] 0.4 mg PO DAILY #30 capsule 07/04/18 [Rx] PredniSONE [Deltasone] 20 mg PO DAILY 07/31/18 [History] Warfarin [Coumadin] 7 mg PO [id number] 07/31/18 [History] Warfarin [Coumadin] 9 mg PO TH 07/31/18 [History] 3 Allergy/AdvReac Type Severity Reaction Status Date / Time No Known Allergies Allergy Verified 05/17/18 20:27 All Systems Review: The remainder of the systems were reviewed and are negative Physical Examination Vital Signs, Last 4 Hours Temp Pulse Resp BP Pulse Ox 08/01/18 07:32 97.5 F L 68 14 118/66 98 Vital Signs Temp Pulse Resp BP Pulse Ox 08/01/18 07:32 97.5 F L 68 14 118/66 98 08/01/18 05:09 98.3 F 63 10 111/64 99 08/01/18 03:49 14 98 07/31/18 23:30 97.5 F L 89 20 112/62 98 07/31/18 22:37 98 07/31/18 22:18 21 99 07/31/18 21:00 97.5 F L 91 14 116/69 99 07/31/18 19:59 21 98 07/31/18 18:40 67 16 113/63 99 07/31/18 17:46 97.6 F 81 18 136/79 98 07/31/18 16:44 78 15 132/59 97 07/31/18 16:30 113/49 07/31/18 16:15 88/67 07/31/18 16:00 90 15 115/62 100 07/31/18 15:45 91 14 123/73 99 07/31/18 15:30 93 15 131/64 99 07/31/18 15:16 93 13 123/61 97 07/31/18 15:15 13 123/61 99 07/31/18 14:45 113 13 112/65 95 07/31/18 14:30 113 16 120/76 96 07/31/18 14:15 113 15 07/31/18 14:00 113 16 07/31/18 13:45 114 14 119/76 07/31/18 13:30 127 17 122/85 07/31/18 13:15 135 16 119/72 100 07/31/18 12:58 135 18 117/83 97 07/31/18 12:45 135 18 96/85 100 07/31/18 12:35 136 12 125/87 96 07/31/18 12:30 18 124/84 96 07/31/18 12:25 96 07/31/18 12:04 97.7 F 136 20 124/84 96 Intake and Output 07/31/18 08/01/18 08/01/18 23:59 07:59 15:59 Intake Total 534.6 / 534.6 549 / 549 0 / 0 Output Total 1300 / 1300 0 / 0 Balance -765.4 / -765.4 549 / 549 0 / 0 Intake: IV Fluids 534.6 / 534.6 549 / 549 0 / 0 Cardizem 50 MG In 0.9 % Sodium 43.6 / 43.6 Chloride 40 ML @ 5 MG/HR 5 mls/ hr IVC .Q10H [facility] Rx#:[id number] Heparin 25,000 UNIT/500 ML D5W 241 / 241 199 / 199 0 / 0 25,000 unit In 500 ml @ 14 UNIT /KG/HR 35.816 mls/hr IVC . [id number] [facility] Rx#:[id number] Zosyn 3.375 GM In 0.9 % Sodium 100 / 100 Chloride (Mini-Bag +) 100 ML @ 25 mls/hr IVPB Q8HR [facility] Rx#: [id number] Vancocin 1,000 MG In 0.9 % 250 / 250 250 / 250 Sodium Chloride 250 ML @ 166. 667 mls/hr IVPB ONCE ONE Rx#: [id number] Oral 0 / 0 0 / 0 Output: Catheter 1300 / 1300 0 / 0 Coude 150 / 150 Other: Stool Size Moderate Stool Consistency soft formed Stool Color Brown # Bowel Movements 1 Weight 126.552 kg 125.1 kg Blood Glucose* 127 92 Patient Weight 08/01/18 23:59 Weight 125.1 kg General: Conversant, No Apparent Distress HEENT: Atraumatic, Normocephaly, Mucus Membranes Moist Neck: Normal carotid pulses Cardiac: Other (irregularly irregular) Lungs: Other (diminished) Neuro: Alert and responsive, No focal deficits noted Abdomen: Soft, Non-Tender Skin: No rashes noted on visualized skin Musculoskeletal: No Chest Wall Tenderness Extremities: Other (mild LE edema) Results 08/01/18 08:05 08/01/18 04:08 Lab Results 07/31/18 08/01/18 08/01/18 17:00 04:08 04:08 WBC 13.1 H Hgb 11.2 L D Hct 35.4 L Plt Count 215 INR 1.7 Sodium 140 Potassium 3.9 Chloride 104 Carbon Dioxide 26 BUN 30 H Creatinine 1.08 Glucose 74 Calcium 8.3 L Magnesium 1.8 08/01/18 08:05 WBC 11.6 H Hgb 10.9 L Hct 35.2 L Plt Count 232 INR Sodium Potassium Chloride Carbon Dioxide BUN Creatinine Glucose Calcium Magnesium Short CBC 08/01/18 08/01/18 08/01/18 Range/Units 08:05 06:15 04:08 WBC 11.6 H (4.3-11.1) K/mcL RBC 3.83 L (4.19-5.50) M/mcL Hgb 10.9 L (12.9-16.9) g/dL Hct 35.2 L (37.5-50.1) % MCV 91.9 (83.0-100.0) fL MCH 28.5 (28.0-33.3) pg MCHC 31.0 L (31.6-35.5) g/dL RDW 19.2 H (11.5-14.5) % Plt Count 232 (140-400) K/mcL MPV 10.6 (9.4-12.4) fL Immature Gran % 1.4 (0-4) % Seg Neutrophils % 78.6 % Lymphocytes % 11.6 % Monocytes % 7.3 % Eosinophils % 0.9 % Basophils % 0.2 % Neutrophils # 9.1 H (1.6-8.9) K/mcL Lymphocytes # 1.4 (0.6-4.6) K/mcL Monocytes # 0.9 (0.0-1.3) K/mcL Eosinophils # 0.1 (0.0-0.6) K/mcL Basophils # 0.0 (0.0-0.2) K/mcL PT (9.4-12.1) Seconds INR Heparin Anti-Xa, Unfract 1.48 H* (0.30-0.70) IU/mL Sample Site ABG pH (7.32-7.45) pH Units ABG pCO2 (35-45) mmHg ABG pO2 (85-104) mmHg ABG HCO3 (21-27) mEq/L ABG Total CO2 (20-26) mEq/L ABG O2 Saturation (95-98) % ABG Base Excess (-2 to 3) mEq/L [place] Test O2 Delivery Device Inspired O2 (1-15=lpm [id number]=%) Sodium (136-145) mEq/L Potassium (3.5-5.1) mEq/L Chloride (98-107) mEq/L Carbon Dioxide (23-29) mEq/L BUN (8-23) mg/dL Creatinine (0.70-1.30) mg/dL Est GFR ( Amer) (> 60) Est GFR (Non-Af Amer) (> 60) BUN/Creatinine Ratio (6-26) Glucose (70-105) mg/dL POC Glucose (70-99) mg/dL Calculated Osmolality (280-300) Lactic Acid 2.2 (0.5-2.2) mmol/L Calcium (8.6-10.3) mg/dL Magnesium (1.6-2.6) mg/dL Total Bilirubin (0.3-1.0) mg/dL Direct Bilirubin (0.0-0.2) mg/dL Indirect Bilirubin (0.0-1.2) mg/dL AST (13-39) Units/L ALT (7-52) Units/L Alkaline Phosphatase (34-104) Units/L Troponin I (< 0.04) ng/mL Serum Total Protein (6.4-8.9) g/dL Albumin (3.5-5.7) g/dL Globulin (2.4-3.5) g/dL Albumin/Globulin Ratio (1.1-2.2) Lipase (11-82) Units/L Urine Color (Yellow) Urine Clarity (Clear) Urine pH (5.0-8.0) pH Units Ur Specific [place] (1.010-1.025) Urine Protein (Neg-Trace) mg/dL Urine Glucose (UA) (Normal) mg/dL Urine Ketones (Negative) mg/dL Urine Blood (Negative) Urine Nitrite (Negative) Urine Bilirubin (Negative) Urine Urobilinogen (Normal) mg/dL Ur Leukocyte Esterase (Negative) Urine Microscopic RBC (0-3) per hpf Urine Microscopic WBC (0-3) per hpf Ur Squamous Epith Cells (None-Few) per lpf Urine Bacteria (None-Few) per hpf Hyaline Casts (None-Few) per lpf Ur Culture Indicated? (NO) 08/01/18 08/01/18 07/31/18 Range/Units 04:08 04:08 23:50 WBC (4.3-11.1) K/mcL RBC (4.19-5.50) M/mcL Hgb (12.9-16.9) g/dL Hct (37.5-50.1) % MCV (83.0-100.0) fL MCH (28.0-33.3) pg MCHC (31.6-35.5) g/dL RDW (11.5-14.5) % Plt Count (140-400) K/mcL MPV (9.4-12.4) fL Immature Gran % (0-4) % Seg Neutrophils % % Lymphocytes % % Monocytes % % Eosinophils % % Basophils % % Neutrophils # (1.6-8.9) K/mcL Lymphocytes # (0.6-4.6) K/mcL Monocytes # (0.0-1.3) K/mcL Eosinophils # (0.0-0.6) K/mcL Basophils # (0.0-0.2) K/mcL PT 18.7 H (9.4-12.1) Seconds INR 1.7 Heparin Anti-Xa, Unfract (0.30-0.70) IU/mL Sample Site ABG pH (7.32-7.45) pH Units ABG pCO2 (35-45) mmHg ABG pO2 (85-104) mmHg ABG HCO3 (21-27) mEq/L ABG Total CO2 (20-26) mEq/L ABG O2 Saturation (95-98) % ABG Base Excess (-2 to 3) mEq/L [place] Test O2 Delivery Device Inspired O2 (1-15=lpm [id number]=%) Sodium 140 (136-145) mEq/L Potassium 3.9 (3.5-5.1) mEq/L Chloride 104 (98-107) mEq/L Carbon Dioxide 26 (23-29) mEq/L BUN 30 H (8-23) mg/dL Creatinine 1.08 (0.70-1.30) mg/dL Est GFR ( Amer) > 60 (> 60) Est GFR (Non-Af Amer) > 60 (> 60) BUN/Creatinine Ratio 28 H (6-26) Glucose 74 (70-105) mg/dL POC Glucose (70-99) mg/dL Calculated Osmolality 295 (280-300) Lactic Acid (0.5-2.2) mmol/L Calcium 8.3 L (8.6-10.3) mg/dL Magnesium 1.8 (1.6-2.6) mg/dL Total Bilirubin (0.3-1.0) mg/dL Direct Bilirubin (0.0-0.2) mg/dL Indirect Bilirubin (0.0-1.2) mg/dL AST (13-39) Units/L ALT (7-52) Units/L Alkaline Phosphatase (34-104) Units/L Troponin I (< 0.04) ng/mL Serum Total Protein (6.4-8.9) g/dL Albumin (3.5-5.7) g/dL Globulin (2.4-3.5) g/dL Albumin/Globulin Ratio (1.1-2.2) Lipase (11-82) Units/L Urine Color Yellow (Yellow) Urine Clarity Cloudy A (Clear) Urine pH 5.5 (5.0-8.0) pH Units Ur Specific [place] 1.019 (1.010-1.025) Urine Protein Trace (Neg-Trace) mg/dL Urine Glucose (UA) Normal (Normal) mg/dL Urine Ketones Negative (Negative) mg/dL Urine Blood Large H (Negative) Urine Nitrite Negative (Negative) Urine Bilirubin Negative (Negative) Urine Urobilinogen Normal (Normal) mg/dL Ur Leukocyte Esterase Large H (Negative) Urine Microscopic RBC TNTC H (0-3) per hpf Urine Microscopic WBC 15-30 H (0-3) per hpf Ur Squamous Epith Cells Many H (None-Few) per lpf Urine Bacteria None Seen (None-Few) per hpf Hyaline Casts Few (None-Few) per lpf Ur Culture Indicated? NO. A (NO) 07/31/18 07/31/18 07/31/18 Range/Units 22:00 17:49 17:00 WBC 13.1 H (4.3-11.1) K/mcL RBC 3.86 L (4.19-5.50) M/mcL Hgb 11.2 L D (12.9-16.9) g/dL Hct 35.4 L (37.5-50.1) % MCV 91.7 (83.0-100.0) fL MCH 29.0 (28.0-33.3) pg MCHC 31.6 (31.6-35.5) g/dL RDW 19.1 H (11.5-14.5) % Plt Count 215 (140-400) K/mcL MPV 10.6 (9.4-12.4) fL Immature Gran % 1.7 (0-4) % Seg Neutrophils % 89.6 % Lymphocytes % 4.4 % Monocytes % 4.0 % Eosinophils % 0.1 % Basophils % 0.2 % Neutrophils # 11.7 H (1.6-8.9) K/mcL Lymphocytes # 0.6 (0.6-4.6) K/mcL Monocytes # 0.5 (0.0-1.3) K/mcL Eosinophils # 0.0 (0.0-0.6) K/mcL Basophils # 0.0 (0.0-0.2) K/mcL PT (9.4-12.1) Seconds INR Heparin Anti-Xa, Unfract > 2.00 H* (0.30-0.70) IU/mL Sample Site ABG pH (7.32-7.45) pH Units ABG pCO2 (35-45) mmHg ABG pO2 (85-104) mmHg ABG HCO3 (21-27) mEq/L ABG Total CO2 (20-26) mEq/L ABG O2 Saturation (95-98) % ABG Base Excess (-2 to 3) mEq/L [place] Test O2 Delivery Device Inspired O2 (1-15=lpm [id number]=%) Sodium (136-145) mEq/L Potassium (3.5-5.1) mEq/L Chloride (98-107) mEq/L Carbon Dioxide (23-29) mEq/L BUN (8-23) mg/dL Creatinine (0.70-1.30) mg/dL Est GFR ( Amer) (> 60) Est GFR (Non-Af Amer) (> 60) BUN/Creatinine Ratio (6-26) Glucose (70-105) mg/dL POC Glucose 130 H (70-99) mg/dL Calculated Osmolality (280-300) Lactic Acid (0.5-2.2) mmol/L Calcium (8.6-10.3) mg/dL Magnesium (1.6-2.6) mg/dL Total Bilirubin (0.3-1.0) mg/dL Direct Bilirubin (0.0-0.2) mg/dL Indirect Bilirubin (0.0-1.2) mg/dL AST (13-39) Units/L ALT (7-52) Units/L Alkaline Phosphatase (34-104) Units/L Troponin I (< 0.04) ng/mL Serum Total Protein (6.4-8.9) g/dL Albumin (3.5-5.7) g/dL Globulin (2.4-3.5) g/dL Albumin/Globulin Ratio (1.1-2.2) Lipase (11-82) Units/L Urine Color (Yellow) Urine Clarity (Clear) Urine pH (5.0-8.0) pH Units Ur Specific [place] (1.010-1.025) Urine Protein (Neg-Trace) mg/dL Urine Glucose (UA) (Normal) mg/dL Urine Ketones (Negative) mg/dL Urine Blood (Negative) Urine Nitrite (Negative) Urine Bilirubin (Negative) Urine Urobilinogen (Normal) mg/dL Ur Leukocyte Esterase (Negative) Urine Microscopic RBC (0-3) per hpf Urine Microscopic WBC (0-3) per hpf Ur Squamous Epith Cells (None-Few) per lpf Urine Bacteria (None-Few) per hpf Hyaline Casts (None-Few) per lpf Ur Culture Indicated? (NO) 07/31/18 07/31/18 07/31/18 Range/Units 16:43 15:07 15:04 WBC (4.3-11.1) K/mcL RBC (4.19-5.50) M/mcL Hgb (12.9-16.9) g/dL Hct (37.5-50.1) % MCV (83.0-100.0) fL MCH (28.0-33.3) pg MCHC (31.6-35.5) g/dL RDW (11.5-14.5) % Plt Count (140-400) K/mcL MPV (9.4-12.4) fL Immature Gran % (0-4) % Seg Neutrophils % % Lymphocytes % % Monocytes % % Eosinophils % % Basophils % % Neutrophils # (1.6-8.9) K/mcL Lymphocytes # (0.6-4.6) K/mcL Monocytes # (0.0-1.3) K/mcL Eosinophils # (0.0-0.6) K/mcL Basophils # (0.0-0.2) K/mcL PT (9.4-12.1) Seconds INR Heparin Anti-Xa, Unfract 0.05 L (0.30-0.70) IU/mL Sample Site L Radial ABG pH 7.45 (7.32-7.45) pH Units ABG pCO2 37 (35-45) mmHg ABG pO2 70 L (85-104) mmHg ABG HCO3 25 (21-27) mEq/L ABG Total CO2 27 H (20-26) mEq/L ABG O2 Saturation 95 (95-98) % ABG Base Excess 1 (-2 to 3) mEq/L [place] Test N/A O2 Delivery Device Cannula Inspired O2 3.0 (1-15=lpm [id number]=%) Sodium (136-145) mEq/L Potassium (3.5-5.1) mEq/L Chloride (98-107) mEq/L Carbon Dioxide (23-29) mEq/L BUN (8-23) mg/dL Creatinine (0.70-1.30) mg/dL Est GFR ( Amer) (> 60) Est GFR (Non-Af Amer) (> 60) BUN/Creatinine Ratio (6-26) Glucose (70-105) mg/dL POC Glucose (70-99) mg/dL Calculated Osmolality (280-300) Lactic Acid 2.8 H (0.5-2.2) mmol/L Calcium (8.6-10.3) mg/dL Magnesium (1.6-2.6) mg/dL Total Bilirubin (0.3-1.0) mg/dL Direct Bilirubin (0.0-0.2) mg/dL Indirect Bilirubin (0.0-1.2) mg/dL AST (13-39) Units/L ALT (7-52) Units/L Alkaline Phosphatase (34-104) Units/L Troponin I (< 0.04) ng/mL Serum Total Protein (6.4-8.9) g/dL Albumin (3.5-5.7) g/dL Globulin (2.4-3.5) g/dL Albumin/Globulin Ratio (1.1-2.2) Lipase (11-82) Units/L Urine Color (Yellow) Urine Clarity (Clear) Urine pH (5.0-8.0) pH Units Ur Specific [place] (1.010-1.025) Urine Protein (Neg-Trace) mg/dL Urine Glucose (UA) (Normal) mg/dL Urine Ketones (Negative) mg/dL Urine Blood (Negative) Urine Nitrite (Negative) Urine Bilirubin (Negative) Urine Urobilinogen (Normal) mg/dL Ur Leukocyte Esterase (Negative) Urine Microscopic RBC (0-3) per hpf Urine Microscopic WBC (0-3) per hpf Ur Squamous Epith Cells (None-Few) per lpf Urine Bacteria (None-Few) per hpf Hyaline Casts (None-Few) per lpf Ur Culture Indicated? (NO) 07/31/18 07/31/18 07/31/18 Range/Units 12:21 12:19 12:19 WBC (4.3-11.1) K/mcL RBC (4.19-5.50) M/mcL Hgb (12.9-16.9) g/dL Hct (37.5-50.1) % MCV (83.0-100.0) fL MCH (28.0-33.3) pg MCHC (31.6-35.5) g/dL RDW (11.5-14.5) % Plt Count (140-400) K/mcL MPV (9.4-12.4) fL Immature Gran % (0-4) % Seg Neutrophils % % Lymphocytes % % Monocytes % % Eosinophils % % Basophils % % Neutrophils # (1.6-8.9) K/mcL Lymphocytes # (0.6-4.6) K/mcL Monocytes # (0.0-1.3) K/mcL Eosinophils # (0.0-0.6) K/mcL Basophils # (0.0-0.2) K/mcL PT (9.4-12.1) Seconds INR Heparin Anti-Xa, Unfract (0.30-0.70) IU/mL Sample Site ABG pH (7.32-7.45) pH Units ABG pCO2 (35-45) mmHg ABG pO2 (85-104) mmHg ABG HCO3 (21-27) mEq/L ABG Total CO2 (20-26) mEq/L ABG O2 Saturation (95-98) % ABG Base Excess (-2 to 3) mEq/L [place] Test O2 Delivery Device Inspired O2 (1-15=lpm [id number]=%) Sodium 138 (136-145) mEq/L Potassium 4.1 (3.5-5.1) mEq/L Chloride 98 (98-107) mEq/L Carbon Dioxide 29 (23-29) mEq/L BUN 40 H (8-23) mg/dL Creatinine 1.37 H (0.70-1.30) mg/dL Est GFR ( Amer) > 60 (> 60) Est GFR (Non-Af Amer) 50 L (> 60) BUN/Creatinine Ratio 29 H (6-26) Glucose 100 (70-105) mg/dL POC Glucose (70-99) mg/dL Calculated Osmolality 296 (280-300) Lactic Acid 3.6 H (0.5-2.2) mmol/L Calcium 9.2 (8.6-10.3) mg/dL Magnesium (1.6-2.6) mg/dL Total Bilirubin 0.6 (0.3-1.0) mg/dL Direct Bilirubin 0.2 (0.0-0.2) mg/dL Indirect Bilirubin 0.4 (0.0-1.2) mg/dL AST 18 (13-39) Units/L ALT 16 (7-52) Units/L Alkaline Phosphatase 44 (34-104) Units/L Troponin I < 0.03 (< 0.04) ng/mL Serum Total Protein 7.0 (6.4-8.9) g/dL Albumin 3.5 (3.5-5.7) g/dL Globulin 3.5 (2.4-3.5) g/dL Albumin/Globulin Ratio 1.0 L (1.1-2.2) Lipase 21 (11-82) Units/L Urine Color Dark Yellow (Yellow) Urine Clarity Cloudy A (Clear) Urine pH 5.5 (5.0-8.0) pH Units Ur Specific [place] 1.016 (1.010-1.025) Urine Protein Trace (Neg-Trace) mg/dL Urine Glucose (UA) Normal (Normal) mg/dL Urine Ketones Negative (Negative) mg/dL Urine Blood Large H (Negative) Urine Nitrite Negative (Negative) Urine Bilirubin Small H (Negative) Urine Urobilinogen Normal (Normal) mg/dL Ur Leukocyte Esterase Moderate H (Negative) Urine Microscopic RBC 50-100 H (0-3) per hpf Urine Microscopic WBC 5-15 H (0-3) per hpf Ur Squamous Epith Cells Moderate H (None-Few) per lpf Urine Bacteria None Seen (None-Few) per hpf Hyaline Casts None Seen (None-Few) per lpf Ur Culture Indicated? YES A (NO) 07/31/18 07/31/18 Range/Units 12:19 12:19 WBC 16.4 H (4.3-11.1) K/mcL RBC 4.47 (4.19-5.50) M/mcL Hgb 12.7 L (12.9-16.9) g/dL Hct 40.7 (37.5-50.1) % MCV 91.1 (83.0-100.0) fL MCH 28.4 (28.0-33.3) pg MCHC 31.2 L (31.6-35.5) g/dL RDW 19.2 H (11.5-14.5) % Plt Count 250 (140-400) K/mcL MPV 10.8 (9.4-12.4) fL Immature Gran % 1.0 (0-4) % Seg Neutrophils % 87.1 % Lymphocytes % 4.6 % Monocytes % 6.4 % Eosinophils % 0.7 % Basophils % 0.2 % Neutrophils # 14.3 H (1.6-8.9) K/mcL Lymphocytes # 0.8 (0.6-4.6) K/mcL Monocytes # 1.1 (0.0-1.3) K/mcL Eosinophils # 0.1 (0.0-0.6) K/mcL Basophils # 0.0 (0.0-0.2) K/mcL PT 16.9 H (9.4-12.1) Seconds INR 1.5 Heparin Anti-Xa, Unfract (0.30-0.70) IU/mL Sample Site ABG pH (7.32-7.45) pH Units ABG pCO2 (35-45) mmHg ABG pO2 (85-104) mmHg ABG HCO3 (21-27) mEq/L ABG Total CO2 (20-26) mEq/L ABG O2 Saturation (95-98) % ABG Base Excess (-2 to 3) mEq/L [place] Test O2 Delivery Device Inspired O2 (1-15=lpm [id number]=%) Sodium (136-145) mEq/L Potassium (3.5-5.1) mEq/L Chloride (98-107) mEq/L Carbon Dioxide (23-29) mEq/L BUN (8-23) mg/dL Creatinine (0.70-1.30) mg/dL Est GFR ( Amer) (> 60) Est GFR (Non-Af Amer) (> 60) BUN/Creatinine Ratio (6-26) Glucose (70-105) mg/dL POC Glucose (70-99) mg/dL Calculated Osmolality (280-300) Lactic Acid (0.5-2.2) mmol/L Calcium (8.6-10.3) mg/dL Magnesium (1.6-2.6) mg/dL Total Bilirubin (0.3-1.0) mg/dL Direct Bilirubin (0.0-0.2) mg/dL Indirect Bilirubin (0.0-1.2) mg/dL AST (13-39) Units/L ALT (7-52) Units/L Alkaline Phosphatase (34-104) Units/L Troponin I (< 0.04) ng/mL Serum Total Protein (6.4-8.9) g/dL Albumin (3.5-5.7) g/dL Globulin (2.4-3.5) g/dL Albumin/Globulin Ratio (1.1-2.2) Lipase (11-82) Units/L Urine Color (Yellow) Urine Clarity (Clear) Urine pH (5.0-8.0) pH Units Ur Specific [place] (1.010-1.025) Urine Protein (Neg-Trace) mg/dL Urine Glucose (UA) (Normal) mg/dL Urine Ketones (Negative) mg/dL Urine Blood (Negative) Urine Nitrite (Negative) Urine Bilirubin (Negative) Urine Urobilinogen (Normal) mg/dL Ur Leukocyte Esterase (Negative) Urine Microscopic RBC (0-3) per hpf Urine Microscopic WBC (0-3) per hpf Ur Squamous Epith Cells (None-Few) per lpf Urine Bacteria (None-Few) per hpf Hyaline Casts (None-Few) per lpf Ur Culture Indicated? (NO) BMP 08/01/18 07/31/18 Range/Units 04:08 12:19 Sodium 140 138 (136-145) mEq/L Potassium 3.9 4.1 (3.5-5.1) mEq/L Chloride 104 98 (98-107) mEq/L Carbon Dioxide 26 29 (23-29) mEq/L BUN 30 H 40 H (8-23) mg/dL Creatinine 1.08 1.37 H (0.70-1.30) mg/dL Glucose 74 100 (70-105) mg/dL Calcium 8.3 L 9.2 (8.6-10.3) mg/dL Cardiac Enzymes 07/31/18 Range/Units 12:19 Troponin I < 0.03 (< 0.04) ng/mL Liver Function 07/31/18 Range/Units 12:19 Total Bilirubin 0.6 (0.3-1.0) mg/dL Direct Bilirubin 0.2 (0.0-0.2) mg/dL AST 18 (13-39) Units/L ALT 16 (7-52) Units/L Alkaline Phosphatase 44 (34-104) Units/L Albumin 3.5 (3.5-5.7) g/dL Urine 07/31/18 07/31/18 Range/Units 23:50 12:21 Urine Color Yellow Dark Yellow (Yellow) Urine Clarity Cloudy A Cloudy A (Clear) Urine pH 5.5 5.5 (5.0-8.0) pH Units Ur Specific [place] 1.019 1.016 (1.010-1.025) Urine Protein Trace Trace (Neg-Trace) mg/dL Urine Glucose (UA) Normal Normal (Normal) mg/dL Impressions Chest X-Ray 07/31/18 12:22 IMPRESSION: Slightly improved airspace opacity in the right lung. Persistent small bilateral pleural effusions with adjacent atelectasis. D/ / Odalys Oneil MD / Odalys Oneil MD Interpreting Provider: Odalys Oneil MD Abdomen/Pelvis CT 07/31/18 13:28 IMPRESSION: 1. No acute abdominopelvic process 2. Colonic diverticulosis. Large amount of colonic stool compatible with the history of constipation 3. Right larger than left pleural effusions with adjacent atelectasis D/ / Emmanuel Huertas MD / Emmanuel Huertas MD Interpreting Provider: Emmanuel Huertas MD Head CT 07/31/18 13:28 IMPRESSION: No acute intracranial abnormality. Diffuse atrophic changes with findings suggesting chronic microvascular ischemia D/ / Louie Flower MD / Louie Flower MD Interpreting Provider: Louie Flower MD Active Medications Acetylcysteine (Acetylcysteine 20%) 600 mg PO TIDAC JEFFREY Stop: 01/31/19 07:31 Albuterol/Ipratropium (Duoneb) 3 ml IH [id number] JEFFREY Stop: 01/30/19 22:01 Last Admin: 08/01/18 03:49 Dose: 3 ml Aspirin (Aspirin Ec) 81 mg PO DAILY JEFFREY Stop: 01/31/19 09:01 Last Admin: 08/01/18 08:18 Dose: 81 mg Atorvastatin Calcium (Lipitor) 20 mg PO HS JEFFREY Stop: 01/30/19 21:01 Last Admin: 07/31/18 22:08 Dose: 20 mg Budesonide/Formoterol Fumarate (Symbicort) 1 puff IH DAILY JEFFREY Stop: 01/31/19 09:01 Dextrose/Water (Dextrose 50% (Syg)) 25 ml IVP AD PRN PRN Reason: Hypoglycemia Stop: 01/31/19 05:35 Docusate Sodium (Colace) 100 mg PO BID JEFFREY PRN Reason: Protocol Stop: 01/30/19 21:01 Last Admin: 08/01/18 08:19 Dose: 100 mg Finasteride (Proscar) 5 mg PO DAILY JEFFREY PRN Reason: Protocol Stop: 01/31/19 09:01 Last Admin: 08/01/18 08:18 Dose: 5 mg Fluoxetine HCl (Prozac) 20 mg PO DAILY JEFFREY PRN Reason: Protocol Stop: 01/31/19 09:01 Last Admin: 08/01/18 08:18 Dose: 20 mg Gabapentin (Neurontin) 300 mg PO TID JEFFREY Stop: 01/30/19 21:01 Last Admin: 08/01/18 08:18 Dose: 300 mg Glucagon (Glucagen) 1 mg IM ONCE PRN PRN Reason: Hypoglycemia Stop: 01/31/19 05:35 Glucose (Gluctose) 15 gm PO ONCE PRN PRN Reason: Hypoglycemia Stop: 01/31/19 05:35 Glucose (Gluctose) 30 gm PO ONCE PRN PRN Reason: Hypoglycemia Stop: 01/31/19 05:35 Heparin Sodium (Porcine) (Heparin) 9,000 unit 70 unit/kg (9000 unit) IVP Q6HR PRN PRN Reason: SEE COMMENTS Stop: 01/30/19 14:47 Heparin Sodium (Porcine) (Heparin) 4,500 unit 35 unit/kg (4500 unit) IVP Q6H PRN PRN Reason: SEE COMMENTS Stop: 01/30/19 14:47 Diltiazem HCl 50 mg/ Sodium (Chloride) 50 mls @ 5 mls/hr IVC .Q10H JEFFREY; 5 MG/HR PRN Reason: Protocol Stop: 01/30/19 12:31 Last Infusion: 07/31/18 22:53 Dose: Infused Heparin Sodium/Dextrose (Heparin 25,000 Unit/500 Ml D5w) 25,000 unit in 500 mls @ 35.816 mls/hr IVC .[id number] JEFFREY; 14 UNIT/KG/HR PRN Reason: Protocol Stop: 01/30/19 15:01 Last Titration: 08/01/18 08:11 Dose: 8 unit/kg/hr, 20.466 mls/hr Piperacillin Sod/Tazobactam (Sod 3.375 gm/ Sodium Chloride) 100 mls @ 25 mls/ hr IVPB Q8HR [facility] Stop: 01/31/19 00:01 Last Admin: 08/01/18 08:18 Dose: 25 mls/hr Vancomycin HCl 1,500 mg/ (Sodium Chloride) 250 mls @ 167 mls/hr IVPB Q24H JEFFREY PRN Reason: Protocol Stop: 01/31/19 15:01 Dextrose (Dextrose 5%) 1,000 mls @ 100 mls/hr IVC .Q10H PRN PRN Reason: HYPOGLYCEMIA Stop: 01/31/19 05:35 Insulin Detemir (Levemir) 10 unit SQ BID [facility] Stop: 01/31/19 09:01 Last Admin: 08/01/18 08:20 Dose: Not Given Insulin Human Lispro (Humalog) 0 units SQ HS [facility] PRN Reason: Protocol Stop: 01/30/19 21:01 Last Admin: 07/31/18 21:50 Dose: Not Given Insulin Human Lispro (Humalog) 0 units SQ TIDWM [facility] PRN Reason: Protocol Stop: 01/30/19 17:01 Last Admin: 08/01/18 08:19 Dose: Not Given Levothyroxine Sodium (Synthroid) 125 mcg PO 0630 [facility] Stop: 01/31/19 06:31 Last Admin: 08/01/18 06:29 Dose: 125 mcg Loratadine (Claritin) 10 mg PO DAILY [facility] PRN Reason: Protocol Stop: 01/31/19 09:01 Last Admin: 08/01/18 08:19 Dose: 10 mg Metoprolol Tartrate (Lopressor) 50 mg PO BID [facility] Stop: 01/30/19 21:01 Last Admin: 08/01/18 08:18 Dose: 50 mg Naloxone HCl (Narcan) 0.4 mg IVP Q2MIN PRN PRN Reason: SEE COMMENTS Stop: 01/30/19 16:49 Omeprazole (Prilosec) 20 mg PO 0630 [facility] Stop: 01/31/19 06:31 Last Admin: 08/01/18 06:29 Dose: 20 mg Pharmacy Profile Note (Patient Taking Own Medication) 1 each PO DAILY [facility] Stop: 01/31/19 09:01 Last Admin: 08/01/18 09:57 Dose: Not Given Pharmacy Profile Note (Patient Taking Own Medication) 0 each IH DAILY [facility] Stop: 01/31/19 09:01 Polyethylene Glycol (Miralax) 17 gm PO DAILY PRN PRN Reason: Constipation Stop: 01/30/19 17:02 Tamsulosin HCl (Flomax) 0.4 mg PO HS [facility] PRN Reason: Protocol Stop: 01/31/19 21:01 Warfarin Sodium (Coumadin) 9 mg PO TH [facility] Stop: 02/01/19 18:01 Warfarin Sodium 3 mg/ Warfarin (Sodium 4 mg) 7 mg PO Jacky@1800 [facility] Stop: 01/30/19 21:31 Last Admin: 07/31/18 22:08 Dose: Not Given - Imaging and Cardiology Echo: report reviewed - EKG Interpretation EKG results cardiology: personally reviewed (A-Flutter RVR rate 135), other (12 hr tele AVG HR 77, A-Flutter) Consult Discharge Plan - Plan Referrals: Shayy Rodgers MD [Primary Care Provider] - <Jesse Husain - Last Filed: 08/01/18 19:03> Date of Encounter: 08/01/18 - Attending Attestation Patient was seen and evaluated independently by me. Findings, assessment and plan were discussed at length with patient, questions answered. Agree with nurse practitioner's documentation. Addition as follows, 78yo CM ho AFLT, CHB s/p PPM, HFpEF, HTN, DM, COPD. P/w AFLT RVR with recent COPD exacerbation. PPM check high AFLT/fib burden. Rate ctr better on new cardizem. A: A flutter RVR, HFpEF, PPM P: add cardizem po with titration for rate ctr as BP tolerated warfarin goal INR 2-3 lasix for volume ctr outpatient for senior care plan of ablation of AFlutter/fib Jesse Husain MD, PhD Assessment and Plan Discussion w patient/family: The assessment and plan as outlined above was discussed with the patient and/or family members who expressed understanding and agreement. All questions were answered. Thank you for involving us in the care of your patient. Please call with any questions. History of Present Illness History of present illness: Mr. Doe is a 78 year old male All Systems Review: The remainder of the systems were reviewed and are negative Physical Examination Vital Signs, Last 4 Hours Temp Pulse Resp BP Pulse Ox 08/01/18 16:14 97.5 F L 85 16 102/59 98 08/01/18 15:50 16 98 Results 08/01/18 08:05 08/01/18 04:08 Lab Results 08/01/18 08/01/18 08/01/18 04:08 04:08 08:05 WBC 11.6 H Hgb 10.9 L Hct 35.2 L Plt Count 232 INR 1.7 Sodium 140 Potassium 3.9 Chloride 104 Carbon Dioxide 26 BUN 30 H Creatinine 1.08 Glucose 74 Calcium 8.3 L Magnesium 1.8
[2018-08-01] MEDS: Budesonide/Formoterol 80/4.5 MDI IH SCH (11:01)
[2018-08-01] MEDS: Heparin 25,000 UNIT/500 ML D5W 25,000 UNIT/500 ML BAG IVC SCH (12:08)
[2018-08-01] MEDS: *HR* Acetylcysteine 20% 600 MG/3 ML ORAL SYRINGE PO SCH ×3 (12:31→20:21)
[2018-08-01] MEDS: INCRUSE ELLIPTA 62.5 MG IH SCH (12:35)
[2018-08-01] MEDS: predniSONE 10 MG TABLET PO SCH (15:18)
[2018-08-01] MEDS: Furosemide 40 MG TABLET PO SCH ×2 (15:18→17:51)
[2018-08-01] MEDS: Diltiazem CD (24hr) 120 MG CAPSULE PO SCH (15:18)
[2018-08-01] MEDS ORDERED: Warfarin perPT PO PRN (18:00)
[2018-08-02] MEDS: Piperacillin/Tazobactam 3.375 GM in 0.9 % Sodium Chloride Mini Bag 100 ML IVPB SCH ×3 (00:55→19:01)
[2018-08-02] MEDS: Ipratropium/Albuterol Neb 3 ML IH SCH ×4 (03:54→23:06)
[2018-08-02 04:22] LABS: Basophils % 0.1 %; Eosinophils # 0.1 K/mcL (0.0-0.6); Hematocrit 33.8 % (37.5-50.1); Hemoglobin 10.4 g/dL (12.9-16.9); Immature Granulocytes % 1.7 % (0-4); Lymphocytes # 0.7 K/mcL (0.6-4.6); Mean Corpuscular HGB Conc 30.8 g/dL (31.6-35.5); Mean Corpuscular Hemoglobin 28.5 pg (28.0-33.3); Mean Corpuscular Volume 92.6 fL (83.0-100.0); Mean Platelet Volume 10.2 fL (9.4-12.4); Monocytes # 0.7 K/mcL (0.0-1.3); Monocytes % 7.8 %; Neutrophils # 7.4 K/mcL (1.6-8.9); Platelet Count 201 K/mcL (140-400); Red Blood Count 3.65 M/mcL (4.19-5.50); Segmented Neutrophils % 81.4 %
[2018-08-02 04:32] LABS: INR 1.9; Prothrombin Time 20.9 Seconds (9.4-12.1)
[2018-08-02 04:39] LABS: BUN/Creatinine Ratio 21 (6-26); Blood Urea Nitrogen 24 mg/dL (8-23); Calcium 8.3 mg/dL (8.6-10.3); Carbon Dioxide 27 mEq/L (23-29); Chloride 102 mEq/L (98-107); Glucose 130 mg/dL (70-105); Osmolality,Calculated 288 (280-300); Potassium 4.1 mEq/L (3.5-5.1); Sodium 136 mEq/L (136-145); eGFR For Non-African Americans > 60 (> 60)
[2018-08-02] MEDS: Aspirin Enteric Coated 81 MG Tablet PO SCH (08:30)
[2018-08-02] MEDS: Loratadine 10 MG TABLET PO SCH (08:31)
[2018-08-02] MEDS: FLUoxetine 20 MG CAPSULE PO SCH (08:31)
[2018-08-02] MEDS: predniSONE 10 MG TABLET PO SCH (08:31)
[2018-08-02] MEDS: Gabapentin 300 MG CAPSULE PO SCH ×3 (08:31→20:19)
[2018-08-02] MEDS: Furosemide 40 MG TABLET PO SCH ×2 (08:31→19:02)
[2018-08-02] MEDS: Diltiazem CD (24hr) 120 MG CAPSULE PO SCH (08:32)
[2018-08-02] MEDS: *HR* Acetylcysteine 20% 600 MG/3 ML ORAL SYRINGE PO SCH ×3 (08:32→19:02)
[2018-08-02] MEDS: Insulin LISPRO 300 UNITS/3 ML VIAL SQ SCH ×4 (08:47→20:22)
[2018-08-02] MEDS: Insulin DETEMIR 100 UNIT/ML X5UNITS SQ SCH ×2 (08:52→20:21)
[2018-08-02] MEDS: INCRUSE ELLIPTA 62.5 MG IH SCH (08:54)
[2018-08-02] MEDS: Finasteride 5 MG TABLET PO SCH (08:55)
--- NOTE | 2018-08-02 09:29 | Internal Med Progress Note ---
Hospitalist Progress Note - Encounter Date of Encounter: 08/02/18 Time of Encounter: 09:27 - Subjective Interval History: Patient seen and examined at bedside. Patient no acute overnight events. Pt with no complaints and very alert. Patient and would much prefer to go to inpatient rehabilitation for more aggressive rehabilitation if possible. Spoke to rn case manager hospice who will discuss with social contact worker as an outpatient referrals. Patient heart rate continues to be controlled. Patient denies any chest pain , shortness of breath, nausea, vomiting, diarrhea. - Exam Vitals: Temp Pulse Resp BP Pulse Ox 96.9 F L 65 16 118/78 97 08/02/18 06:29 08/02/18 06:29 08/02/18 06:29 08/02/18 06:29 08/02/18 06:29 Exam: Constitutional: No acute distress, Alert Psych: AAO x3 HEENT: NCAT, EOMI Neck: supple Cardio: Irregularly irregular with controlled rate Resp: decreased breath sounds in bases, otherwise clear, unchanged Abd: soft, non tender/non distended Extremities: no clubbing/cyanosis/edema appreciated venous stasis of lower extremities; L>R unchanged Neuro: no focal deficits appreciated - Assessment and Plan (1) Atrial flutter with rapid ventricular response Current Visit: Yes Status: Chronic Assessment and Plan: Pt presented from [facility] for atrial flutter with RVR -HR controlled -PPM interregated in ED revealed prolonged runs of atrial flutter with RVR and 4 runs of VT per ED documentation -cardizem gtt weaned off, po cardizem started -continue lopressor, may be able to increase as bp seems improved -INR supratheraputic; Hep gtt started and will dc when inr therapeutic - reports orthostatic hypotension at F (2) Sepsis Current Visit: Yes Status: Acute Assessment and Plan: Pt presented meeting SIRS criteria with Lactic, leukocysosis and tachycardia -unsure of infectious etiology as pt has been afebrile; may not be infectious at this point -however states recent development of productive sputum; patient continues to deny this -with assisted [place]; changed recently but could be infected; UA contaminated -Zosyn/Vanco started emperically on admission -Lactic improved from 3.6 to 2.8 after IVF; now normal -check procalcitionin -> still pending -pt was on steroids which could be etiology of leukocytosis -HR controlled -blood and urine culture with NGTD -dc vanco and continue zosyn one more day; likely dc zosyn tomorrow (3) CHAS (acute kidney injury) Current Visit: Yes Status: Acute Assessment and Plan: Pt presents with serum creatinine of 1.37 at admission with recent baseline around 1.0-1.1 -Serum Cr noted to be 1.33 on 07/23/18 which is similar to todays presentation -recent CHAS with bladder outlet obstruction -given 2L ivf in ED -Serum Cr at baseline today; [place] with yellow urine (4) Hematuria Current Visit: Yes Status: Acute Assessment and Plan: -Hematuria noted on UA -Recent hematuria with bladder outlet obstruction -Continue urology f/u outpatient -hemoglobin stable (5) Abdominal pain Current Visit: Yes Status: Acute Assessment and Plan: -Likely 2/2 constipation -Denies abd pain currently -Imaging consistent with constipation -Miralax and colace -1 bm reported (6) KYLEE (obstructive sleep apnea) Current Visit: Yes Status: Chronic Assessment and Plan: Bipap qhs and prn (7) DVT prophylaxis Current Visit: Yes Status: Acute Assessment and Plan: Hep gtt/coumadin DVT Prophylaxis: hep gtt/coumadin - Summary of Assessment and Plan Summary of Assessment and Plan: would benefit from swing bed placement; referrals sent - Time Spent with Patient Total time spent is greater than 50% in coordination of care (as documented) at patient's floor/unit and/or counseling patient: 25 - 35 minutes Plan of Care Discussed with: patient Internal Medicine: Result - Labs CBC & Chem 7: 08/02/18 04:00 08/02/18 04:00 Labs: Short CBC 08/02/18 Range/Units 04:00 WBC 9.0 (4.3-11.1) K/mcL Hgb 10.4 L (12.9-16.9) g/dL Hct 33.8 L (37.5-50.1) % Plt Count 201 (140-400) K/mcL Neutrophils # 7.4 (1.6-8.9) K/mcL BMP 08/02/18 04:00 Sodium 136 Potassium 4.1 Chloride 102 Carbon Dioxide 27 BUN 24 H Creatinine 1.12 Glucose 130 H Calcium 8.3 L - ABG Interpretation ABG results: ABG ABG pH 7.45 pH Units (7.32-7.45) 07/31/18 15:07 ABG pCO2 37 mmHg (35-45) 07/31/18 15:07 ABG pO2 70 mmHg (85-104) L 07/31/18 15:07 ABG O2 Saturation 95 % (95-98) 07/31/18 15:07 PT/INR, D-dimer PT 20.9 Seconds (9.4-12.1) H 08/02/18 04:00 Consult Discharge Plan - Plan Referrals: Shayy Rodgers MD [Primary Care Provider] - (2) Sepsis Qualifiers: Sepsis type: sepsis due to unspecified organism Qualified Code(s): A41.9 - Sepsis, unspecified organism (4) Hematuria Qualifiers: Hematuria type: idiopathic Glomerular morphologic changes: unspecified whether glomerular morphologic changes present Qualified Code(s): N02.9 - Recurrent and persistent hematuria with unspecified morphologic changes (5) Abdominal pain Qualifiers: Abdominal location: generalized Qualified Code(s): R10.84 - Generalized abdominal pain
[2018-08-02] MEDS: Budesonide/Formoterol 80/4.5 MDI IH SCH (10:36)
[2018-08-02] MEDS: Heparin 25,000 UNIT/500 ML D5W 25,000 UNIT/500 ML BAG IVC SCH (14:15)
[2018-08-02] MEDS ORDERED: *HR* Warfarin 3 MG TABLET PO SCH (18:00)
[2018-08-03] MEDS: Piperacillin/Tazobactam 3.375 GM in 0.9 % Sodium Chloride Mini Bag 100 ML IVPB SCH ×2 (01:28→09:09)
[2018-08-03] MEDS: Ipratropium/Albuterol Neb 3 ML IH SCH ×3 (04:08→16:01)
[2018-08-03 06:04] LABS: INR 2.4
[2018-08-03] MEDS: Insulin LISPRO 300 UNITS/3 ML VIAL SQ SCH ×3 (08:52→17:30)
[2018-08-03] MEDS: Furosemide 40 MG TABLET PO SCH ×2 (09:09→15:47)
[2018-08-03] MEDS: *HR* Acetylcysteine 20% 600 MG/3 ML ORAL SYRINGE PO SCH ×2 (09:09→13:50)
[2018-08-03] MEDS: Aspirin Enteric Coated 81 MG Tablet PO SCH (09:10)
[2018-08-03] MEDS: Gabapentin 300 MG CAPSULE PO SCH ×2 (09:11→15:47)
[2018-08-03] MEDS: Diltiazem CD (24hr) 120 MG CAPSULE PO SCH (09:11)
[2018-08-03] MEDS: Loratadine 10 MG TABLET PO SCH (09:11)
[2018-08-03] MEDS: INCRUSE ELLIPTA 62.5 MG IH SCH (09:11)
[2018-08-03] MEDS: predniSONE 10 MG TABLET PO SCH (09:11)
[2018-08-03] MEDS: FLUoxetine 20 MG CAPSULE PO SCH (09:11)
[2018-08-03] MEDS: Finasteride 5 MG TABLET PO SCH (09:11)
[2018-08-03] MEDS: Insulin DETEMIR 100 UNIT/ML X5UNITS SQ SCH (09:19)
[2018-08-03] MEDS: Budesonide/Formoterol 80/4.5 MDI IH SCH (10:07)
[2018-08-03 12:18] VITALS: BP 118/72
--- NOTE | 2018-08-03 15:24 | Discharge Summary ---
- NOTES TO OUTPATIENT PROVIDER Notes to Outpatient Provider: Continue to follow pending cultures currently negative. Discharged empirically on Levaquin to cover respiratory and sources. Follow up with regularly scheduled cardiology appointment. Up with urology regarding when it is safe to remove Hoffman Orders not resulted at time of discharge: Pending orders 07/31/18 17:37 Sputum Culture [Culture,Sputum with Gram Stain] [RM] Routine blood cx pending no growth to date Date of Encounter: 08/03/18 Time of Encounter: 15:22 - Discharge Diagnosis (1) Sepsis Priority: Primary Status: Acute Qualifiers: Sepsis type: sepsis due to unspecified organism Qualified Code(s): A41.9 - Sepsis, unspecified organism (2) Atrial flutter with rapid ventricular response Priority: Secondary Status: Chronic (3) CHAS (acute kidney injury) Priority: Secondary Status: Acute (4) Hematuria Priority: Secondary Status: Acute Qualifiers: Hematuria type: idiopathic Glomerular morphologic changes: unspecified whether glomerular morphologic changes present Qualified Code(s): N02.9 - Recurrent and persistent hematuria with unspecified morphologic changes (5) Abdominal pain Priority: Secondary Status: Acute Qualifiers: Abdominal location: generalized Qualified Code(s): R10.84 - Generalized abdominal pain (6) KYLEE (obstructive sleep apnea) Priority: Secondary Status: Chronic (7) DVT prophylaxis Priority: Secondary Status: Acute Hospital course: Mr. Doe is a 78 year old male who presented to the ED from ECF due to tachycardia. Patient was found to be in A. fib with RVR and started on Cardizem drip with improvement in heart rate. Pacemaker was interrogated and 1 revealed frequent a flutter with RVR and 4 runs of nonsustained V. tach. The patient also had elevated lactic acid and leukocytosis in addition to his heart rate and was started on empiric By Joaquim for concern for sepsis. There are reports of increased cough initially and the patient has a Hoffman that is been in place for nearly a month due to bladder outlet obstruction; the patient improved rapidly with IV antibiotics and acidosis resolved and mentation improved. Cultures have been negative with urine and blood. The patient will be discharged empirically on Levaquin for an additional 4 days to complete a 7 day total course covering respiratory and sources. Patient also had acute kidney injury when he came and Lasix was initially held however renal function normalized and Lasix was resumed. Patient seen by cardiology and was weaned off Cardizem drip and started on by mouth Cardizem. Patient had excellent control his heart rate after this. Patient very eager for physical therapy there was an attempt made to try to get the patient into inpatient rehabilitation/swing bed however insurance would not approve this therefore the patient be discharged back to [facility] for continued rehabilitation with hopefully return to home. concerned they do not get the patient out of bed, will provide instructions insisting that the patient be sent in a chair twice a day if possible. Patient also on heparin drip initially for subtherapeutic INR, warfarin dose continued at home dose and INR normalizes inhibitor with discontinued prior to discharge. Patient should continue using BiPAP at nighttime. and patient agreeable for discharge in stable for discharge on 08/03/2018. Discharge discussed with: patient, family, nurse - Time Spent with Patient Total time spent providing and/or coordinating discharge services: Greater than 30 minutes - Discharge Medications Prescriptions: Diltiazem CD (24hr) [Cardizem CD] 120 mg PO DAILY 30 Days #30 cap.er.24h Docusate [Colace] 100 mg PO BID 30 Days #60 capsule Insulin DETEMIR [Levemir] 10 unit SQ BID #1 [id number] levoFLOXacin [Levaquin] 750 mg PO DAILY 4 Days #4 tablet predniSONE [PredniSONE] 10 mg PO DAILY 2 Days #4 tablet Home Medications: Acetylcysteine [C-Girtbz-i-Cysteine] 600 mg PO TIDAC 05/17/18 [History] Amitriptyline HCl 100 mg PO DAILY 05/17/18 [History] Atorvastatin Calcium [Lipitor] 20 mg PO HS 05/17/18 [History] FLUoxetine HCl [Prozac] 20 mg PO DAILY 05/17/18 [History] Finasteride [Proscar] 5 mg PO DAILY 05/17/18 [History] Fish Oil/Dha/Epa [Fish Oil 1,200 mg Fish Oil] 1 cap PO DAILY 05/17/18 [History] Fluticasone/Salmeterol [Advair Hfa 230-21 Mcg Inhaler] 1 puff IH DAILY 05/17/18 [History] Levothyroxine [Synthroid] 125 mcg PO 0630 05/17/18 [History] Loratadine [Claritin] 10 mg PO DAILY 05/17/18 [History] Lutein 20 mg PO DAILY 05/17/18 [History] Metformin HCl [Glucophage] 1,000 mg PO BID 05/17/18 [History] Ipratropium/Albuterol Neb [Duoneb] 3 ml IH Q6HR 06/01/18 [History] Polyethylene Glycol 3350 [MiraLAX] 17 gm PO DAILY PRN 06/01/18 [History] Aspirin [Ecotrin] 81 mg PO DAILY 30 Days #30 tablet. 06/22/18 [Rx] Omeprazole 20 mg PO DAILY 30 Days #30 tablet. 06/22/18 [Rx] Furosemide [Lasix] 40 mg PO BID 06/29/18 [History] SitaGLIPtin [Januvia] 100 mg PO DAILY 06/29/18 [History] Umeclidinium [place] [Incruse Ellipta] 62.5 mcg IH DAILY 06/29/18 [History] Vit A/Vit C/Vit E/Zinc/Copper [Preservision Areds Tablet] 1 tab PO DAILY [History] Gabapentin [Neurontin] 300 mg PO TID #90 capsule 07/04/18 [Rx] Metoprolol [Lopressor] 50 mg PO BID #60 tablet 07/04/18 [Rx] Tamsulosin [Flomax] 0.4 mg PO DAILY #30 capsule 07/04/18 [Rx] Warfarin [Coumadin] 7 mg PO SUMOTUWEFRSA 07/31/18 [History] Warfarin [Coumadin] 9 mg PO TH 07/31/18 [History] Diltiazem CD (24hr) [Cardizem CD] 120 mg PO DAILY 30 Days #30 cap.er.24h [Rx] Docusate [Colace] 100 mg PO BID 30 Days #60 capsule 08/03/18 [Rx] Insulin DETEMIR [Levemir] 10 unit SQ BID #1 [id number] 08/03/18 [Rx] levoFLOXacin [Levaquin] 750 mg PO DAILY 4 Days #4 tablet 08/03/18 [Rx] predniSONE [PredniSONE] 10 mg PO DAILY 2 Days #4 tablet 08/03/18 [Rx] Allergies/Adverse Reactions: 3 Allergy/AdvReac Type Severity Reaction Status Date / Time No Known Allergies Allergy Verified 05/17/18 20:27 Date of admission: 07/31/18 16:48 Primary care physician: Shayy Rodgers MD Consults: 07/31/18 17:06 Consult to Cardiology [CONS] Routine Comment: Consulting Provider: Cardiology [place] Reason for Consult: afib rvr, ppm interregated with frequent rvr and occasional VT per documetation, pt of matheney Call Completed: No 07/31/18 18:19 Consult to Nutrition [CONS] Routine Comment: Consulting Provider: NUTRITION Reason for Dietary Consult: MST Score Consult to Pastoral Services [CONS] Routine Comment: Consult to Tripe Cooker [CONS] Routine Reason for SW Consult: From [facility] for rehab, states they are not happy with his care there and they were not getting him up for rehab. - Constitutional Vitals: Temp Pulse Resp BP Pulse Ox 97.9 F 75 17 118/72 95 08/03/18 12:18 08/03/18 12:18 08/03/18 12:18 08/03/18 12:18 08/03/18 12:18 Exam: Constitutional: No acute distress, Alert Psych: AAO x 3 HEENT: NCAT Neck: supple, no JVD Cardio: regular rate and rhythm, +s1s2 Resp: coarse bs; otherwise clear Abd: soft, non tender/non distended, positive bowel sounds Extremities: no clubbing/cyanosis/edema appreciated Neuro: no focal deficits appreciated - Patient Status Disposition: Transfer SNF Condition: Fair - Discharge Instructions Follow Up With: hSayy Rodgers MD [Primary Care Provider] - - Diet and Activity Activity: as per physical therapy, other (up in chair 2 times daily with physical therapy) Diet: advance to your usual diet
--- NOTE | 2018-08-03 16:28 | Physician Discharge Referral ---
ExtendedCare Referral Info Transfer To: ECF Provider in Charge after Transfer: PCP Institutional Level of Care: Skilled - Diagnosis (1) Sepsis Status: Acute (2) Atrial flutter with rapid ventricular response Status: Chronic (3) CHAS (acute kidney injury) Status: Acute (4) Hematuria Status: Acute (5) Abdominal pain Status: Acute (6) KYLEE (obstructive sleep apnea) Status: Chronic (7) DVT prophylaxis Status: Acute - Transfer Medications Prescriptions: Diltiazem CD (24hr) [Cardizem CD] 120 mg PO DAILY 30 Days #30 cap.er.24h Docusate [Colace] 100 mg PO BID 30 Days #60 capsule Insulin DETEMIR [Levemir] 10 unit SQ BID #1 [id number] levoFLOXacin [Levaquin] 750 mg PO DAILY 4 Days #4 tablet predniSONE [PredniSONE] 10 mg PO DAILY 2 Days #4 tablet Home Medications: Acetylcysteine [K-Dkznca-b-Cysteine] 600 mg PO TIDAC 05/17/18 [History] Amitriptyline HCl 100 mg PO DAILY 05/17/18 [History] Atorvastatin Calcium [Lipitor] 20 mg PO HS 05/17/18 [History] FLUoxetine HCl [Prozac] 20 mg PO DAILY 05/17/18 [History] Finasteride [Proscar] 5 mg PO DAILY 05/17/18 [History] Fish Oil/Dha/Epa [Fish Oil 1,200 mg Fish Oil] 1 cap PO DAILY 05/17/18 [History] Fluticasone/Salmeterol [Advair Hfa 230-21 Mcg Inhaler] 1 puff IH DAILY 05/17/18 [History] Levothyroxine [Synthroid] 125 mcg PO 0630 05/17/18 [History] Loratadine [Claritin] 10 mg PO DAILY 05/17/18 [History] Lutein 20 mg PO DAILY 05/17/18 [History] Metformin HCl [Glucophage] 1,000 mg PO BID 05/17/18 [History] Ipratropium/Albuterol Neb [Duoneb] 3 ml IH Q6HR 06/01/18 [History] Polyethylene Glycol 3350 [MiraLAX] 17 gm PO DAILY PRN 06/01/18 [History] Aspirin [Ecotrin] 81 mg PO DAILY 30 Days #30 tablet. 06/22/18 [Rx] Omeprazole 20 mg PO DAILY 30 Days #30 tablet. 06/22/18 [Rx] Furosemide [Lasix] 40 mg PO BID 06/29/18 [History] SitaGLIPtin [Januvia] 100 mg PO DAILY 06/29/18 [History] Umeclidinium [place] [Incruse Ellipta] 62.5 mcg IH DAILY 06/29/18 [History] Vit A/Vit C/Vit E/Zinc/Copper [Preservision Areds Tablet] 1 tab PO DAILY [History] Gabapentin [Neurontin] 300 mg PO TID #90 capsule 07/04/18 [Rx] Metoprolol [Lopressor] 50 mg PO BID #60 tablet 07/04/18 [Rx] Tamsulosin [Flomax] 0.4 mg PO DAILY #30 capsule 07/04/18 [Rx] Warfarin [Coumadin] 7 mg PO SUMOTUWEFRSA 07/31/18 [History] Warfarin [Coumadin] 9 mg PO TH 07/31/18 [History] Diltiazem CD (24hr) [Cardizem CD] 120 mg PO DAILY 30 Days #30 cap.er.24h [Rx] Docusate [Colace] 100 mg PO BID 30 Days #60 capsule 08/03/18 [Rx] Insulin DETEMIR [Levemir] 10 unit SQ BID #1 [id number] 08/03/18 [Rx] levoFLOXacin [Levaquin] 750 mg PO DAILY 4 Days #4 tablet 08/03/18 [Rx] predniSONE [PredniSONE] 10 mg PO DAILY 2 Days #4 tablet 08/03/18 [Rx] Allergies/Adverse Reactions: 3 Allergy/AdvReac Type Severity Reaction Status Date / Time No Known Allergies Allergy Verified 05/17/18 20:27 - Respiratory Orders Smoking Cessation: Smoking cessation has been advised. For more information, call the [place] Tobacco Quit Line at 1-432-ULWB-NOW. CERTIFICATION: I certify that the transfer of the above named patient to an Extended Care Facility is necessary for the continuing treatment of the diagnosis listed. The above information is true and accurate reflection of patient's current condition. Confidential - Redisclosure prohibited without a patient's written consent.
== END 2018-08-03 19:46 | DRG 872 ==
LOC: EMEROOARM 11:59 → 2NENU 11:59
PROVIDERS: ADMIT Student in an Organized Health Care Education/Training Program; ATTEND Student in an Organized Health Care Education/Training Program

== ENCOUNTER 2018-08-11 07:43 | Inpatient (IN) ==
[2018-08-11] MEDS ORDERED: Cefepime HCl 2,000 MG in Water for inj. (sterile) 20 ML 20 ML IVP ONE (07:49)
--- NOTE | 2018-08-11 07:58 | Emergency Department Note ---
Disposition Clinical Impression: Severe sepsis, Acute kidney injury, Supratherapeutic INR, Elevated lactic acid level, Pulmonary edema UTI (urinary tract infection) Qualifiers: Urinary tract infection type: site unspecified Hematuria presence: with hematuria Qualified Code(s): N39.0 - Urinary tract infection, site not specified Pneumonia Qualifiers: Pneumonia type: due to unspecified organism Laterality: bilateral Lung location : lower lobe of lung Qualified Code(s): J18.1 - Lobar pneumonia, unspecified organism Respiratory failure Qualifiers: Chronicity: acute on chronic Respiratory failure complication: hypoxia Qualified Code(s): J96.21 - Acute and chronic respiratory failure with hypoxia Disposition: Admitted As Inpatient Condition: Fair Referrals: Shayy Rodgers MD [Primary Care Provider] - Time of Disposition: 09:18 General Adult HPI - General Stated complaint: ANCA Time Seen by Provider: 08/11/18 07:45 Nursing Notes Reviewed: Yes Vital Signs Reviewed: Yes - History of Present Illness HPI Narrative: 78yo male presents from [facility] via EMS where staff noted some confusion yesterday noted to be persistent through today. ROS not obtainable secondary to patient's medical condition. CODE STATUS: Full code per at bedside. - Related Data Home Medications Medication Instructions Recorded Confirmed Acetylcysteine 600 mg PO TIDAC 05/17/18 08/11/18 [W-Wegcmm-h-Cysteine] Amitriptyline HCl 100 mg PO DAILY 05/17/18 08/11/18 Atorvastatin Calcium [Lipitor] 20 mg PO HS 05/17/18 08/11/18 Finasteride [Proscar] 5 mg PO DAILY 05/17/18 08/11/18 Fish Oil/Dha/Epa [Fish Oil 1,200 1 cap PO DAILY 05/17/18 08/11/18 mg Fish Oil] Fluticasone/Salmeterol [Advair Hfa 1 puff IH DAILY 05/17/18 08/11/18 230-21 Mcg Inhaler] Levothyroxine [Synthroid] [place] [address]/17/18 08/11/18 Loratadine [Claritin] 10 mg PO DAILY 05/17/18 08/11/18 Lutein 20 mg PO DAILY 05/17/18 08/11/18 Metformin HCl [Glucophage] 1,000 mg PO BID 05/17/18 08/11/18 Ipratropium/Albuterol Neb [Duoneb] 3 ml IH Q6HR 06/01/18 08/11/18 Polyethylene Glycol 3350 [MiraLAX] 17 gm PO DAILY PRN 06/01/18 08/11/18 Furosemide [Lasix] 40 mg PO BID 06/29/18 08/11/18 SitaGLIPtin [Januvia] 100 mg PO DAILY 06/29/18 08/11/18 Vit A/Vit C/Vit E/Zinc/Copper 1 tab PO DAILY 06/29/18 08/11/18 [Preservision Areds Tablet] Warfarin [Coumadin] 7 mg PO [id number] 07/31/18 08/11/18 Warfarin [Coumadin] 9 mg PO TH 07/31/18 08/11/18 Previous Rx's Medication Instructions Recorded Aspirin [Ecotrin] 81 mg PO DAILY 30 Days #30 06/22/18 tablet. Omeprazole 20 mg PO DAILY 30 Days #30 06/22/18 tablet. Gabapentin [Neurontin] 300 mg PO TID #90 capsule 07/04/18 Metoprolol [Lopressor] 50 mg PO BID #60 tablet 07/04/18 Tamsulosin [Flomax] 0.4 mg PO DAILY #30 capsule 07/04/18 Diltiazem CD (24hr) [Cardizem CD] 120 mg PO DAILY 30 Days #30 08/03/18 cap.er.24h Docusate [Colace] 100 mg PO BID 30 Days #60 capsule 08/03/18 Insulin DETEMIR [Levemir] 10 unit SQ BID #1 [id number] 08/03/18 Allergies Allergy/AdvReac Type Severity Reaction Status Date / Time No Known Allergies Allergy Verified 05/17/18 20:27 Review of Systems: As Per HPI Limitations: ROS unobtainable due to patients medical condition Past Medical History - Past Medical History Medical history: Reports: arthritis, atrial fibrillation, COPD, diabetes, GERD, hyperlipidemia, hypertension, thyroid disease, other Surgical history: Reports: cholecystectomy, knee replacement, orthopedic, other , pacemaker Psychiatric history: Reports: no psych history - Social History Smoking Status: Former smoker Smokeless Tobacco Status: No Alcohol use: Reports: none Drug use: Reports: none Physical Exam Vital Signs Reviewed General: Patient is alert, oriented, and in no acute distress. No cyanosis. Head: atraumatic, normocephalic Eye: normal appearance, PERRL, no scleral icterus, no conjunctival injection ENT: mucous membranes moist, normal external ear exam Neck: normal inspection, trachea midline, full ROM Chest: normal inspection, symmetric chest rise Respiratory: Poor respiratory effort. Prolonged expiratory phase. Bilateral breath sounds have diffuse coarse crackles left greater than right. Unable to discern underlying wheeze. Cardiovascular: Regular rate and rhythm. No clicks, rubs, gallops, or murmors. Normal heart sounds. no pedal edema. Abdomen: Obese. Bowel sounds present normoactive. Abdomen is soft, nondistended, and nontender. No guarding or rebound. Musculoskeletal: Spontaneously moving all extremities. Skin: warm, dry, intact. Neuro: Alert and oriented x4. Sensation light touch intact. Psych: Patient's affect is appropriate for situation. Course Course Narrative: Chart check: Patient has multiple comorbidities. History of A. 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 Patient admitted 07/31/2018 for A. fib RVR, sepsis, a canine, hematuria. Anticoagulated on coumadin. SIRS (+) - tachycardia and tachypena. Cautious IV rehydration given patient's crackles on pulmonary exam. Empiric antibiotics of vancomycin and cefepime. Patient has no focal complaints however baseline mentation is uncertain. He does appear somnolent however does not appear clinically confused. When standing bedside, patient has wet breath sounds. Concern for pneumonia vs CHF. If pneumonia, this would be HCAP given recent hospital admission and presentation from [facility]. Indwelling salinas in place; will replace and obtain fresh urine. SaO2 on [place] is in the mid 70's; will place patient on BiPap. On intake, patient is tachycardic to 126. Unsure if a resurgence of his A. Fib vs tachycardia from hypoxia/pulmonary disease. Patient's tachycardia improved to 101 on BiPAP. Blood pressure is 115 systolic ; while not attempt rate control given the patient's blood pressure. Patient is anemic; this is chronic anemia and consistent with his baseline levels. Creatinine is elevated well above his baseline; acute kidney injury. Fluids given. Lactic acid slightly elevated; IV fluids given. Patient's INR is above 11. No clinically significant bleeding. Will provide by mouth vitamin K 5 mg. Chest x-ray concerning for pulmonary edema versus pneumonia. Given patient's clinical picture, hypoxia, lack of hypertension, normal BNP strongly suspect pneumonia. Empiric antibiotics of a mycin and cefepime given for suspected HCAP. Urinalysis concerning for UTI. Antibiotics given. EKG #1 EKG dated 08/11/2018 at 07:53 interpreted as atrial fibrillation with rapid ventricular rate of 126. Normal axis. Nonspecific ST-T changes. Compared to previous EKG dated 09/24/2007 which is sinus rhythm; no acute ischemic changes or comparison. EKG #2 EKG interpreted as atrial fibrillation with a rate of 101. I discussed the above with the admitting hospitalist who agrees to accept the patient for continued evaluation monitoring. Chest X-Ray 08/11/18 07:50 IMPRESSION: Patchy airspace opacities bilaterally, may be related to pulmonary edema versus pneumonia, stable. Stable mild right pleural effusion. D/ / Ryne Mcdermott MD / Ryne Mcdermott MD Interpreting Provider: Ryne Mcdermott MD Head CT 08/11/18 07:51 IMPRESSION: No acute intracranial abnormality. D/ / Juan Antonio Beal MD / Juan Antonio Beal MD Interpreting Provider: Juan Antonio Beal MD Vital Signs Temperature 98.9 F 08/11/18 07:56 Pulse Rate 103 08/11/18 07:56 Respiratory Rate 22 08/11/18 07:56 Blood Pressure 115/63 08/11/18 07:56 O2 Sat by Pulse Oximetry 100 08/11/18 07:56 Temperature 98.9 F 08/11/18 07:56 Pulse Rate 113 08/11/18 09:45 Respiratory Rate 20 08/11/18 09:45 Blood Pressure 119/75 08/11/18 09:45 O2 Sat by Pulse Oximetry 97 08/11/18 09:45 Oxygen Delivery Oxygen Delivery Bipap Medical Decision Making - Lab Data Result diagrams: 08/11/18 07:49 08/11/18 07:49 Lab Results 08/11/18 08/11/18 08/11/18 Range/Units 07:49 07:49 07:53 WBC 11.6 H (4.3-11.1) K/mcL RBC 3.67 L (4.19-5.50) M/mcL Hgb 10.5 L (12.9-16.9) g/dL Hct 33.1 L (37.5-50.1) % MCV 90.2 (83.0-100.0) fL MCH 28.6 (28.0-33.3) pg MCHC 31.7 (31.6-35.5) g/dL RDW 19.5 H (11.5-14.5) % Plt Count 288 (140-400) K/mcL MPV 9.8 (9.4-12.4) fL Immature Gran % 1.0 (0-4) % Seg Neutrophils % 82.6 % Lymphocytes % 6.0 % Monocytes % 9.5 % Eosinophils % 0.6 % Basophils % 0.3 % Neutrophils # 9.5 H (1.6-8.9) K/mcL Lymphocytes # 0.7 (0.6-4.6) K/mcL Monocytes # 1.1 (0.0-1.3) K/mcL Eosinophils # 0.1 (0.0-0.6) K/mcL Basophils # 0.0 (0.0-0.2) K/mcL PT (9.4-12.1) Seconds INR Sample Site ABG pH (7.32-7.45) pH Units ABG pCO2 (35-45) mmHg ABG pO2 (85-104) mmHg ABG HCO3 (21-27) mEq/L ABG Total CO2 (20-26) mEq/L ABG O2 Saturation (95-98) % ABG Base Excess (-2 to 3) mEq/L [place] Test O2 Delivery Device Inspired O2 (1-15=lpm [id number]=%) PEEP cm H2O Sodium 136 (136-145) mEq/L Potassium 3.4 L (3.5-5.1) mEq/L Chloride 98 (98-107) mEq/L Carbon Dioxide 23 (23-29) mEq/L BUN 44 H (8-23) mg/dL Creatinine 2.15 H (0.70-1.30) mg/dL Est GFR ( Amer) 36 L (> 60) Est GFR (Non-Af Amer) 30 L (> 60) BUN/Creatinine Ratio 20 (6-26) Glucose 154 H (70-105) mg/dL Calculated Osmolality 296 (280-300) Lactic Acid (0.5-2.2) mmol/L Calcium 8.8 (8.6-10.3) mg/dL Magnesium 1.6 (1.6-2.6) mg/dL Troponin I < 0.03 (< 0.04) ng/mL B-Natriuretic Peptide 78 (Less than 100) pg/mL TSH (0.340-5.600) mcIU/mL Urine Color (Yellow) Urine Clarity (Clear) Urine pH (5.0-8.0) pH Units Ur Specific [place] (1.010-1.025) Urine Protein (Neg-Trace) mg/dL Urine Glucose (UA) (Normal) mg/dL Urine Ketones (Negative) mg/dL Urine Blood (Negative) Urine Nitrite (Negative) Urine Bilirubin (Negative) Urine Urobilinogen (Normal) mg/dL Ur Leukocyte Esterase (Negative) Urine Microscopic RBC (0-3) per hpf Urine Microscopic WBC (0-3) per hpf Ur Squamous Epith Cells (None-Few) per lpf Amorphous Sediment (Few) Urine Bacteria (None-Few) per hpf Hyaline Casts (None-Few) per lpf Ur Culture Indicated? (NO) 08/11/18 08/11/18 08/11/18 Range/Units 07:54 08:01 08:01 WBC (4.3-11.1) K/mcL RBC (4.19-5.50) M/mcL Hgb (12.9-16.9) g/dL Hct (37.5-50.1) % MCV (83.0-100.0) fL MCH (28.0-33.3) pg MCHC (31.6-35.5) g/dL RDW (11.5-14.5) % Plt Count (140-400) K/mcL MPV (9.4-12.4) fL Immature Gran % (0-4) % Seg Neutrophils % % Lymphocytes % % Monocytes % % Eosinophils % % Basophils % % Neutrophils # (1.6-8.9) K/mcL Lymphocytes # (0.6-4.6) K/mcL Monocytes # (0.0-1.3) K/mcL Eosinophils # (0.0-0.6) K/mcL Basophils # (0.0-0.2) K/mcL PT 134.6 H* (9.4-12.1) Seconds INR 11.9 H* Sample Site ABG pH (7.32-7.45) pH Units ABG pCO2 (35-45) mmHg ABG pO2 (85-104) mmHg ABG HCO3 (21-27) mEq/L ABG Total CO2 (20-26) mEq/L ABG O2 Saturation (95-98) % ABG Base Excess (-2 to 3) mEq/L [place] Test O2 Delivery Device Inspired O2 (1-15=lpm [id number]=%) PEEP cm H2O Sodium (136-145) mEq/L Potassium (3.5-5.1) mEq/L Chloride (98-107) mEq/L Carbon Dioxide (23-29) mEq/L BUN (8-23) mg/dL Creatinine (0.70-1.30) mg/dL Est GFR ( Amer) (> 60) Est GFR (Non-Af Amer) (> 60) BUN/Creatinine Ratio (6-26) Glucose (70-105) mg/dL Calculated Osmolality (280-300) Lactic Acid 2.5 H (0.5-2.2) mmol/L Calcium (8.6-10.3) mg/dL Magnesium (1.6-2.6) mg/dL Troponin I (< 0.04) ng/mL B-Natriuretic Peptide (Less than 100) pg/mL TSH 5.026 (0.340-5.600) mcIU/mL Urine Color (Yellow) Urine Clarity (Clear) Urine pH (5.0-8.0) pH Units Ur Specific [place] (1.010-1.025) Urine Protein (Neg-Trace) mg/dL Urine Glucose (UA) (Normal) mg/dL Urine Ketones (Negative) mg/dL Urine Blood (Negative) Urine Nitrite (Negative) Urine Bilirubin (Negative) Urine Urobilinogen (Normal) mg/dL Ur Leukocyte Esterase (Negative) Urine Microscopic RBC (0-3) per hpf Urine Microscopic WBC (0-3) per hpf Ur Squamous Epith Cells (None-Few) per lpf Amorphous Sediment (Few) Urine Bacteria (None-Few) per hpf Hyaline Casts (None-Few) per lpf Ur Culture Indicated? (NO) 08/11/18 08/11/18 Range/Units 08:11 08:12 WBC (4.3-11.1) K/mcL RBC (4.19-5.50) M/mcL Hgb (12.9-16.9) g/dL Hct (37.5-50.1) % MCV (83.0-100.0) fL MCH (28.0-33.3) pg MCHC (31.6-35.5) g/dL RDW (11.5-14.5) % Plt Count (140-400) K/mcL MPV (9.4-12.4) fL Immature Gran % (0-4) % Seg Neutrophils % % Lymphocytes % % Monocytes % % Eosinophils % % Basophils % % Neutrophils # (1.6-8.9) K/mcL Lymphocytes # (0.6-4.6) K/mcL Monocytes # (0.0-1.3) K/mcL Eosinophils # (0.0-0.6) K/mcL Basophils # (0.0-0.2) K/mcL PT (9.4-12.1) Seconds INR Sample Site L Radial ABG pH 7.47 H (7.32-7.45) pH Units ABG pCO2 35 (35-45) mmHg ABG pO2 89 (85-104) mmHg ABG HCO3 25 (21-27) mEq/L ABG Total CO2 26 (20-26) mEq/L ABG O2 Saturation 98 (95-98) % ABG Base Excess 2 (-2 to 3) mEq/L [place] Test N/A O2 Delivery Device BiPAP Inspired O2 50.0 (1-15=lpm [id number]=%) PEEP 6 cm H2O Sodium (136-145) mEq/L Potassium (3.5-5.1) mEq/L Chloride (98-107) mEq/L Carbon Dioxide (23-29) mEq/L BUN (8-23) mg/dL Creatinine (0.70-1.30) mg/dL Est GFR ( Amer) (> 60) Est GFR (Non-Af Amer) (> 60) BUN/Creatinine Ratio (6-26) Glucose (70-105) mg/dL Calculated Osmolality (280-300) Lactic Acid (0.5-2.2) mmol/L Calcium (8.6-10.3) mg/dL Magnesium (1.6-2.6) mg/dL Troponin I (< 0.04) ng/mL B-Natriuretic Peptide (Less than 100) pg/mL TSH (0.340-5.600) mcIU/mL Urine Color Dark Yellow (Yellow) Urine Clarity Turbid A (Clear) Urine pH 5.0 (5.0-8.0) pH Units Ur Specific [place] 1.017 (1.010-1.025) Urine Protein 30 H (Neg-Trace) mg/dL Urine Glucose (UA) Normal (Normal) mg/dL Urine Ketones Trace H (Negative) mg/dL Urine Blood Large H (Negative) Urine Nitrite Negative (Negative) Urine Bilirubin Small H (Negative) Urine Urobilinogen Normal (Normal) mg/dL Ur Leukocyte Esterase Moderate H (Negative) Urine Microscopic RBC TNTC H (0-3) per hpf Urine Microscopic WBC 50-100 H (0-3) per hpf Ur Squamous Epith Cells Few (None-Few) per lpf Amorphous Sediment Few (Few) Urine Bacteria Moderate H (None-Few) per hpf Hyaline Casts Few (None-Few) per lpf Ur Culture Indicated? YES A (NO) Critical Care Time Critical Care Time: Yes Total Critical Care Time: 60 Attestation: Critical care time 60 minutes managing patient's difficulty breathing, probable sepsis, and new-onset A. fib. Attestation Statement - Attestation Attestation: Patient was seen with resident physician. I reviewed the history, physical, assessment and plan, and agree with the findings. I also personally evaluated this patient and had [id number] time with this patient. 78-year-old male presents emergency Department chief complaint of difficult breathing and confusion. Patient is a [facility] patient, with indwelling [place] catheter, who was just discharged in the hospital approximately a week ago. The patient himself provides very little history, but history from EMS is that he had decreased oxygenation levels pulse oxing about 75% I will he found him. He is placed on a nonrebreather and brought into the emergency department. Patient himself denies any complaints but again is not a good historian. Review of systems really difficult to obtain we reviewed everything to the extent we are able. Physical exam vital signs patient is tachycardic blood pressure was okay. ENT dry mucous membranes. Heart tachycardic regular rhythm. Lungs diffuse crackles heard throughout. Abdomen is soft and nontender obese. Extremities minimal swelling with venous stasis in the lower extremities. Neurologically patient is alert moves all extremities does not seem to have focal deficits at this time. Skin no obvious rashes. And psych little bit of a flat affect. ED course patient was placed on BiPAP shortly after his arrival secondary to poor oxygenation. It is unclear initially if this was CHF COPD pneumonia urosepsis or some combination of problems causing his variety of symptoms. We will do a thorough workup including a head CT scan. EKG demonstrates atrial fibrillation with a rate of 126. A variety of lab abnormalities indicating the patient likely had pneumonia, urosepsis, acute kidney injury. There is a variety of other abnormalities noted. Hospitalist service was notified as to the need for admission. Hemodynamically the patient was somewhat improved at the time of admission. Critical care time for this patient was 60 minutes. Agree with resident physician assessment and plan.
[2018-08-11] MEDS ORDERED: 0.9 % Sodium Chloride 1,000 ML IVC ONE ×2 (08:10→10:45)
[2018-08-11 08:17] LABS: ABG Base Excess 2 mEq/L (-2 to 3); ABG HCO3 25 mEq/L (21-27); ABG Oxygen Saturation 98 % (95-98); ABG PCO2 35 mmHg (35-45); ABG PH 7.47 pH Units (7.32-7.45); ABG PO2 89 mmHg (85-104); ABG TCO2 26 mEq/L (20-26); Blood Gas PEEP 6 cm H2O
[2018-08-11 08:21] LABS: Basophils % 0.3 %; Eosinophils # 0.1 K/mcL (0.0-0.6); Eosinophils % 0.6 %; Hematocrit 33.1 % (37.5-50.1); Hemoglobin 10.5 g/dL (12.9-16.9); Lymphocytes # 0.7 K/mcL (0.6-4.6); Mean Corpuscular HGB Conc 31.7 g/dL (31.6-35.5); Mean Corpuscular Hemoglobin 28.6 pg (28.0-33.3); Mean Corpuscular Volume 90.2 fL (83.0-100.0); Mean Platelet Volume 9.8 fL (9.4-12.4); Monocytes # 1.1 K/mcL (0.0-1.3); Monocytes % 9.5 %; Neutrophils # 9.5 K/mcL (1.6-8.9); Platelet Count 288 K/mcL (140-400); Red Blood Count 3.67 M/mcL (4.19-5.50); Red Cell Distribution Width 19.5 % (11.5-14.5); Segmented Neutrophils % 82.6 %
[2018-08-11 08:23] LABS: Bilirubin,Urine Small (Negative); Blood,Urine Large (Negative); Clarity,Urine Turbid (Clear); Color,Urine Dark Yellow (Yellow); Glucose,Urine (UA) Normal (Normal); Ketones,Urine Trace mg/dL (Negative); Leukocyte Esterase,Urine Moderate (Negative); Nitrite,Urine Negative (Negative); Protein,Urine 30 mg/dL (Neg-Trace); Specific Gravity,Urine 1.017 (1.010-1.025); Urobilinogen,Urine Normal (Normal)
[2018-08-11 08:25] LABS: WBC,Urine 50-100 per hpf (0-3)
[2018-08-11 08:32] LABS: BUN/Creatinine Ratio 20 (6-26); Blood Urea Nitrogen 44 mg/dL (8-23); Calcium 8.8 mg/dL (8.6-10.3); Carbon Dioxide 23 mEq/L (23-29); Chloride 98 mEq/L (98-107); Glucose 154 mg/dL (70-105); Magnesium 1.6 mg/dL (1.6-2.6); Osmolality,Calculated 296 (280-300); Potassium 3.4 mEq/L (3.5-5.1); Sodium 136 mEq/L (136-145); eGFR For Non-African Americans 30 (> 60)
[2018-08-11 08:35] LABS: Amorphous Sediment,Urine Few (Few); Bacteria,Urine Moderate per hpf (None-Few); Hyaline Casts,Urine Few per lpf (None-Few); RBC,Urine TNTC per hpf (0-3); Squamous Epithelial Cell,Urine Few per lpf (None-Few)
[2018-08-11 08:46] LABS: INR 11.9; Prothrombin Time 134.6 Seconds (9.4-12.1)
[2018-08-11] MEDS ORDERED: *HR* Phytonadione 5 MG TABLET PO ONE (08:52)
[2018-08-11 09:11] LABS: Troponin I < 0.03 ng/mL (< 0.04)
--- NOTE | 2018-08-11 12:50 | Internal Med History&Physical ---
Date of Encounter: 08/11/18 Time of Encounter: 10:20 Internal Medicine - H&P: HPI Chief complaint: confusion, shortness of breath Plans for Post Hospital Care: Transfer Half-Way Facility History of present illness: Mr. Doe is a 78 year old male with past medical history of COPD, diabetes, GERD, hypertension, hyperlipidemia, diastolic CHF, atrial fibrillation/a flutter status post pacemaker was brought in from [facility] care facility because of confusion and difficulty breathing. Significant history could not be obtained from the patient as he was not arousable and was on BiPAP. History obtained from and daughter at bedside as well as ER doctor. Patient was noted to be confused yesterday as per and daughter. This morning because of increasing difficulty breathing and confusion patient was sent from the extended care facility to ER. Unclear history of progression of shortness of breath as family was unaware. Patient was in and out of hospital for past 2-3 months. First time he was here for atrial flutter and had a pacemaker placed. Patient was discharged early this month when he was admitted due to A. fib with RVR, sepsis from unclear source. Cultures were negative and he received empiric antibiotics for 7 days for respiratory and urinary source. Patient had supratherapeutic INR at that time. He had 4 runs of nonsustained V. tach. Was discharged to [facility] on 2017. Notably has chronic indwelling Salinas catheter for bladder outlet obstruction which was present at that visit 4 month. Patient was unarousable during interview and could not offer any complaints. Patient had indwelling Salinas catheter in place and was on BiPAP. Patient received empiric vancomycin and cefepime for HCAP And UTI given sepsis with elevated lactic acid, tachycardia and tachypnea. Patient also received vitamin K for supratherapeutic INR. Chest x-ray suspicious of pneumonia. Urinalysis suspicion of UTI. He received 1 L of normal saline in ER. Past Med Surg Social Fam HX - Past Medical History Medical history: arthritis, atrial fibrillation, COPD, diabetes, GERD, hyperlipidemia, hypertension, thyroid disease, other Additional medical history: OA, PE Psychiatric history: no psych history - Past Surgical History Surgical History: cholecystectomy, knee replacement, orthopedic, other, pacemaker Additional surgical history: bilateral knee replacement, Right shoulder, heart cath with no stent placement. - Social History Smoking Status: Former smoker Smokeless Tobacco Status: No Alcohol use: none Drug use: none - Family History Mother Living Status: Hx Family Cancer: Yes (Metastatic breast cancer) Hx Family Endocrine Disorder: Yes (DM) Father Adopted: No Family Member Ethnicity: Non- Living Status: Hx Family Cardiac Disorders: No Hx Family Respiratory Disorders: Yes (Asbestosis) Hx Family Cancer: Yes (Lung CA) Hx Family GI Disorders: No Hx Family Endocrine Disorder: No Hx Family Neuromuscular Disorders: No Hx Family Neurologic Disorders: No Hx Family HEENT Disorders: No Hx Family Autoimmune Disorders: No Internal Medicine - H&P: Meds Acetylcysteine [R-Envxmd-b-Cysteine] 600 mg PO TIDAC 05/17/18 [History] Amitriptyline HCl 100 mg PO DAILY 05/17/18 [History] Atorvastatin Calcium [Lipitor] 20 mg PO HS 05/17/18 [History] Finasteride [Proscar] 5 mg PO DAILY 05/17/18 [History] Fish Oil/Dha/Epa [Fish Oil 1,200 mg Fish Oil] 1 cap PO DAILY 05/17/18 [History] Fluticasone/Salmeterol [Advair Hfa 230-21 Mcg Inhaler] 1 puff IH DAILY 05/17/18 [History] Levothyroxine [Synthroid] 125 mcg PO 0630 05/17/18 [History] Loratadine [Claritin] 10 mg PO DAILY 05/17/18 [History] Lutein 20 mg PO DAILY 05/17/18 [History] Metformin HCl [Glucophage] 1,000 mg PO BID 05/17/18 [History] Ipratropium/Albuterol Neb [Duoneb] 3 ml IH Q6HR 06/01/18 [History] Polyethylene Glycol 3350 [MiraLAX] 17 gm PO DAILY PRN 06/01/18 [History] Aspirin [Ecotrin] 81 mg PO DAILY 30 Days #30 tablet. 06/22/18 [Rx] Omeprazole 20 mg PO DAILY 30 Days #30 tablet. 06/22/18 [Rx] Furosemide [Lasix] 40 mg PO BID 06/29/18 [History] SitaGLIPtin [Januvia] 100 mg PO DAILY 06/29/18 [History] Vit A/Vit C/Vit E/Zinc/Copper [Preservision Areds Tablet] 1 tab PO DAILY [History] Gabapentin [Neurontin] 300 mg PO TID #90 capsule 07/04/18 [Rx] Metoprolol [Lopressor] 50 mg PO BID #60 tablet 07/04/18 [Rx] Tamsulosin [Flomax] 0.4 mg PO DAILY #30 capsule 07/04/18 [Rx] Warfarin [Coumadin] 7 mg PO SUMOTUWEFRSA 07/31/18 [History] Warfarin [Coumadin] 9 mg PO TH 07/31/18 [History] Diltiazem CD (24hr) [Cardizem CD] 120 mg PO DAILY 30 Days #30 cap.er.24h [Rx] Docusate [Colace] 100 mg PO BID 30 Days #60 capsule 08/03/18 [Rx] Insulin DETEMIR [Levemir] 10 unit SQ BID #1 [id number] 08/03/18 [Rx] 3 Allergy/AdvReac Type Severity Reaction Status Date / Time No Known Allergies Allergy Verified 05/17/18 20:27 All Systems PM: A 10-system review of systems was performed and is negative for pertinent findings except as documented above in the HPI. - Constitutional Vitals: Temp Pulse Resp BP Pulse Ox 97.3 F L 90 18 133/77 91 08/11/18 12:09 08/11/18 12:09 08/11/18 12:09 08/11/18 12:09 08/11/18 12:09 Exam: Constitutional: Vitals as noted. On bipap. Obese. Not arousable. Eyes exam: Sclera white, conjunctiva clear, no lid lag, PEARLA. ENT exam: Nasophargeal exam unremarkable. dry mucus membranes. No JVD, carotid bruit, no cervical lymphadenopathy. no thyromegaly or mass. Respiratory exam: Transmitted sound from Bipap. Decreased air entry bilaterally and difficulty auscultation due to body habitus. No rhonchi or wheezes Cardiovascular exam: RRR, +S1, +S2. no murmur, gallop, rubs. No chest wall tenderness GI/Abdominal exam: Soft, Obese, Non-tender, Non-distended, normal bowel sounds, soft, no peritoneal signs. no orgenomegaly or mass appreciated. Scar noted Musculoskeletal exam: no edema or cyanosis, pulses palpable and symmetrical in UE/LE. no calf tenderness. Chronic dermatitis changes noted on Lt foot Neurological exam: Not able to evaluate as patient not arousable. Skin exam: No skin rash, leseions or ulcers noted. no purpura or ecchymosis. Pych: Not able to evaluate exam: salinas in place Internal Med - H&P Results - Labs CBC & Chem 7: 08/11/18 07:49 08/11/18 07:49 - Assessment and plan (1) Severe sepsis Current Visit: Yes Status: Acute Assessment and plan: Patient likely has sepsis given elevated lactate, tachypnea and tachycardia. Chest x-ray is suspicious of pneumonia and UA suspicion of UTI. Leukocytosis. - Given recent hospitalization we will treat empirically for hospital-acquired pneumonia and UTI with vancomycin and cefepime. - Follow up urine cultures and blood cultures and sputum cultures. Follow-up respiratory panel, urine Legionella and pneumococcal antigen and MRSA screen. - Received 1 L normal saline. Given history of CHF we will cautiously hydrate with D5 half NS at 75 mL an hour for total 1 L. Follow lactate in 6 hours. Vitals stable. - We will continue to keep patient on BiPAP. - We will consult infectious disease on Monday (2) Pneumonia Current Visit: Yes Status: Acute Assessment and plan: as above Qualifiers: Pneumonia type: due to unspecified organism Laterality: bilateral Lung location: lower lobe of lung Qualified Code(s): J18.1 - Lobar pneumonia, unspecified organism (3) Atrial fibrillation with RVR Current Visit: No Status: Acute Assessment and plan: - Initially patient with A. fib and RVR. After patient was started on BiPAP and received fluid resuscitation heart rate improved. - Currently heart rate between 80s to 105. - We will keep patient on 3 mg per hour of diltiazem with holding parameters as patient not able to take by mouth based on home dose - Keep patient on telemetry. (4) Acute kidney injury Current Visit: No Status: Resolved Assessment and plan: - Creatinine 2.15 with baseline of 1.12. - Elevated GFR likely prerenal given sepsis. - Status post 1 L NS. We will continue 75 D5 half normal saline for 1 Lit given CHF history. Currently does not appear to be volume overload. . (5) Hypokalemia Current Visit: Yes Status: Acute Assessment and plan: - Mild hypokalemia. - Will monitor for now. (6) Diabetes mellitus Current Visit: No Status: Chronic Assessment and plan: - We will home metformin and sitagliptin - accuchecks q6hr and sliding scale insulin and levemir of 5. Qualifiers: Diabetes mellitus type: type 2 Diabetes mellitus long winder tender insulin use: unspecified long winder tender insulin use status Diabetes mellitus complication status : with unspecified complications Qualified Code(s): E11.8 - Type 2 diabetes mellitus with unspecified complications (7) Diastolic CHF Current Visit: No Status: Acute Assessment and plan: - Hold Lasix given CHAS - Currently appears euvolemic Qualifiers: Heart failure chronicity: chronic Qualified Code(s): I50.32 - Chronic diastolic (congestive) heart failure (8) Elevated lactic acid level Current Visit: Yes Status: Acute (9) Respiratory failure Current Visit: Yes Status: Acute Assessment and plan: - Likely secondary to pneumonia on baseline COPD and chronic respiratory failure - Continue BiPAP Qualifiers: Chronicity: acute on chronic Respiratory failure complication: hypoxia Qualified Code(s): J96.21 - Acute and chronic respiratory failure with hypoxia (10) Supratherapeutic INR Current Visit: Yes Status: Acute Assessment and plan: INR of 11 - Hold coumadin - s/p Oral Vitamin K. (11) UTI (urinary tract infection) Current Visit: Yes Status: Acute Assessment and plan: -Continue empiric antibiotics. Follow-up urine culture Qualifiers: Urinary tract infection type: site unspecified Hematuria presence: with hematuria Qualified Code(s): N39.0 - Urinary tract infection, site not specified; R31.9 - Hematuria, unspecified (12) COPD (chronic obstructive pulmonary disease) Current Visit: No Status: Chronic Assessment and plan: - Continue patient on BiPAP. We will down titrate FiO2 as tolerated. - Continue duo nebs. Qualifiers: COPD type: chronic bronchitis Chronic bronchitis type: unspecified Qualified Code(s): J42 - Unspecified chronic bronchitis (13) Altered mental state Current Visit: Yes Status: Acute Assessment and plan: - Like metabolic encephalopathy from hypoxia and sepsis - CT had unremarkable - If no improvement with sepsis treatment will consider neurology consult Qualifiers: Qualified Code(s): R41.82 - Altered mental status, unspecified (14) DVT prophylaxis Current Visit: No Status: Acute Assessment and plan: - Supratherapeutic INR - Increased risk of bleeding. EPCD - Time Spent With Patient Total time spent is greater than 50% in coordination of care (as documented) at patient's floor/unit and/or counseling patient:
[2018-08-11] MEDS: D5% in 0.45% NACL 1,000 ML IVC SCH (14:10)
[2018-08-11] MEDS ORDERED: Ipratropium/Albuterol Neb 3 ML IH PRN (14:21)
[2018-08-11] MEDS: Ipratropium/Albuterol Neb 3 ML IH SCH ×2 (15:53→21:38)
[2018-08-11] MEDS ORDERED: Cefepime HCl 2,000 MG in Water for inj. (sterile) 20 ML 20 ML IVP SCH (16:00)
[2018-08-11] MEDS ORDERED: Furosemide 40 MG TABLET PO SCH (17:00)
[2018-08-11] MEDS: Insulin LISPRO 300 UNITS/3 ML VIAL SQ SCH (18:08)
[2018-08-11] MEDS: Levothyroxine Sodium 100 MCG VIAL IVP SCH (18:13)
[2018-08-11 18:33] LABS: Adenovirus Not Detected (Not Detect); Bordetella Pertussis Not Detected (Not Detect); Chlamydophila pneumoniae Not Detected (Not Detect); Coronavirus 229E Not Detected (Not Detect); Coronavirus HKU1 Not Detected (Not Detect); Coronavirus NL63 Not Detected (Not Detect); Coronavirus OC43 Not Detected (Not Detect); Human Metapneumovirus Not Detected (Not Detect); Human Rhinovirus/Enterovirus Not Detected (Not Detect); Influenza A Subtype 2009 H1 Not Detected (Not Detect); Influenza A Untypeable Not Detected (Not Detect); Influenza B Not Detected (Not Detect); Mycoplasma pneumoniae Not Detected (Not Detect); Parainfluenza Virus 1 Not Detected (Not Detect); Parainfluenza Virus 2 Not Detected (Not Detect); Parainfluenza Virus 3 DETECTED (Not Detect); Parainfluenza Virus 4 Not Detected (Not Detect); Respiratory Syncytial Virus Not Detected (Not Detect)
[2018-08-11] MEDS: Cefepime HCl 2,000 MG in Water for inj. (sterile) 20 ML 20 ML IVP SCH (21:05)
[2018-08-11] MEDS: Insulin DETEMIR 100 UNIT/ML X5UNITS SQ SCH (22:22)
[2018-08-11] MEDS ORDERED: Potassium Chloride 20 MEQ, Lidocaine 1% 2 ML in D5% in Water 250 ML IVPB ONE (23:45)
[2018-08-12] MEDS: Insulin LISPRO 300 UNITS/3 ML VIAL SQ SCH ×4 (03:04→17:41)
[2018-08-12] MEDS: Ipratropium/Albuterol Neb 3 ML IH SCH ×4 (04:31→21:57)
[2018-08-12 07:43] LABS: Basophils % 0.2 %; Eosinophils # 0.1 K/mcL (0.0-0.6); Eosinophils % 0.8 %; Hematocrit 28.3 % (37.5-50.1); Immature Granulocytes % 0.8 % (0-4); Lymphocytes # 0.7 K/mcL (0.6-4.6); Lymphocytes % 7.9 %; Mean Corpuscular HGB Conc 31.4 g/dL (31.6-35.5); Mean Platelet Volume 9.7 fL (9.4-12.4); Monocytes # 0.8 K/mcL (0.0-1.3); Platelet Count 238 K/mcL (140-400); Red Blood Count 3.18 M/mcL (4.19-5.50); Red Cell Distribution Width 19.9 % (11.5-14.5); Segmented Neutrophils % 81.3 %
[2018-08-12 07:51] LABS: INR 2.8; Prothrombin Time 31.8 Seconds (9.4-12.1)
[2018-08-12 07:53] LABS: Hemoglobin 8.9 g/dL (12.9-16.9)
[2018-08-12] MEDS: D5% in 0.45% NACL 1,000 ML IVC SCH ×2 (08:38→16:09)
[2018-08-12] MEDS: Cefepime HCl 2,000 MG in Water for inj. (sterile) 20 ML 20 ML IVP SCH (08:39)
[2018-08-12] MEDS: Levothyroxine Sodium 100 MCG VIAL IVP SCH (08:40)
[2018-08-12] MEDS ORDERED: Diltiazem CD (24hr) 120 MG CAPSULE PO SCH ×2 (09:00→16:15)
--- NOTE | 2018-08-12 15:54 | Internal Med Progress Note ---
Hospitalist Progress Note - Encounter Date of Encounter: 08/12/18 Time of Encounter: 09:50 - Subjective Interval History: Patient lying down with BiPAP mask in place. According to family, patient has not had a good rest last night and was struggling to breathe with the BiPAP mask. As such the mask was changed this morning to more full-size facial mask. He seems to be tolerating this better. Currently not waking up to sternal rub but does respond to pain. - Exam Vitals: Temp Pulse Resp BP Pulse Ox 97.5 F L 72 18 130/70 93 08/12/18 13:10 08/12/18 13:10 08/12/18 13:10 08/12/18 13:10 08/12/18 13:10 Exam: General: Patient is somnolent, difficult to awake. Severe distress Head: atraumatic, normocephalic, ENT: Patient has BiPAP mask in place. Respiratory: Coarse breath sounds bilaterally. Cardiovascular: Regular rate and rhythm. s1 and s2 normal No clicks, rubs, gallops, or murmurs. No pedal edema Abdomen: Abdomen is soft, nontender. Bowel sounds are present Musculoskeletal: Bilateral pedal edema. Skin: warm, dry, intact. Neuro: Patient is somnolent. Unable to assess strength in this time. - Assessment and Plan (1) Severe sepsis Current Visit: Yes Status: Acute Assessment and Plan: Patient with acute sepsis from UTI and recent pneumonia. Continue broad- spectrum antibiotics. Follow culture results. (2) UTI (urinary tract infection) Current Visit: Yes Status: Acute Assessment and Plan: Due to chronic indwelling Hoffman catheter. Follow culture results. Continue broad-spectrum antibiotics. (3) Altered mental state Current Visit: Yes Status: Acute Assessment and Plan: Acute metabolic encephalopathy due to hypoxia. Continue BiPAP. Treat underlying infections. High risk for complications. (4) Pneumonia Current Visit: Yes Status: Acute Assessment and Plan: On broad-spectrum antibiotics. Follow culture results. (5) COPD (chronic obstructive pulmonary disease) Current Visit: Yes Status: Chronic Assessment and Plan: On BiPAP. Will continue. Continue bronchodilators . (6) Diabetes mellitus Current Visit: Yes Status: Chronic Assessment and Plan: Monitor blood sugars. Currently continue current insulin regimen. (7) Acute kidney injury Current Visit: Yes Status: Acute Assessment and Plan: Will recheck basic panel. Patient received IV fluids in the ER. (8) Atrial fibrillation with RVR Current Visit: Yes Status: Acute Assessment and Plan: Rate controlled. Patient is on Coumadin. INR is therapeutic. (9) Diastolic CHF Current Visit: Yes Status: Chronic Assessment and Plan: Holding Lasix due to acute kidney injury. Continue other medications. (10) Respiratory failure Current Visit: Yes Status: Acute (11) Supratherapeutic INR Current Visit: Yes Status: Resolved Assessment and Plan: INR normal. Will resume Coumadin. (12) Elevated lactic acid level Current Visit: Yes Status: Resolved (13) Hypokalemia Current Visit: Yes Status: Acute Assessment and Plan: Will check basic panel. (14) DVT prophylaxis Current Visit: No Status: Acute Assessment and Plan: On Coumadin. Currently therapeutic. (15) Anemia Current Visit: Yes Status: Acute Assessment and Plan: Hemoglobin 8.9 today. Patient not having any active bleeding at this time. Could be dilutional. Will monitor H&H - Time Spent with Patient Total time spent is greater than 50% in coordination of care (as documented) at patient's floor/unit and/or counseling patient: Internal Medicine: Result - Labs CBC & Chem 7: 08/12/18 06:13 08/11/18 07:49 Labs: Short CBC 08/12/18 Range/Units 06:13 WBC 8.6 (4.3-11.1) K/mcL Hgb 8.9 L D (12.9-16.9) g/dL Hct 28.3 L (37.5-50.1) % Plt Count 238 (140-400) K/mcL Neutrophils # 7.0 (1.6-8.9) K/mcL - ABG Interpretation ABG results: ABG ABG pH 7.47 pH Units (7.32-7.45) H 08/11/18 08:12 ABG pCO2 35 mmHg (35-45) 08/11/18 08:12 ABG pO2 89 mmHg (85-104) 08/11/18 08:12 ABG O2 Saturation 98 % (95-98) 08/11/18 08:12 PT/INR, D-dimer PT 31.8 Seconds (9.4-12.1) H D 08/12/18 06:13 Consult Discharge Plan - Plan (2) UTI (urinary tract infection) Qualifiers: Urinary tract infection type: acute cystitis Hematuria presence: with hematuria Qualified Code(s): N30.01 - Acute cystitis with hematuria (3) Altered mental state Qualifiers: Qualified Code(s): R41.82 - Altered mental status, unspecified (4) Pneumonia Qualifiers: Pneumonia type: due to unspecified organism Laterality: bilateral Lung location: lower lobe of lung Qualified Code(s): J18.1 - Lobar pneumonia, unspecified organism (5) COPD (chronic obstructive pulmonary disease) Qualifiers: COPD type: chronic bronchitis Chronic bronchitis type: unspecified Qualified Code(s): J42 - Unspecified chronic bronchitis (6) Diabetes mellitus Qualifiers: Diabetes mellitus type: type 2 Diabetes mellitus prison insulin use: unspecified call out clerk insulin use status Diabetes mellitus complication status : with unspecified complications Qualified Code(s): E11.8 - Type 2 diabetes mellitus with unspecified complications (9) Diastolic CHF Qualifiers: Heart failure chronicity: chronic Qualified Code(s): I50.32 - Chronic diastolic (congestive) heart failure (10) Respiratory failure Qualifiers: Chronicity: acute on chronic Respiratory failure complication: hypoxia Qualified Code(s): J96.21 - Acute and chronic respiratory failure with hypoxia (15) Anemia Qualifiers: Anemia type: other cause Other causes of anemia: other cause, not classified Qualified Code(s): D64.89 - Other specified anemias
[2018-08-12] MEDS: *HR* Acetylcysteine 20% 600 MG/3 ML ORAL SYRINGE PO SCH (16:45)
[2018-08-12 17:16] LABS: ABG Base Excess 3 mEq/L (-2 to 3); ABG HCO3 27 mEq/L (21-27); ABG Oxygen Saturation 96 % (95-98); ABG PCO2 40 mmHg (35-45); ABG PH 7.44 pH Units (7.32-7.45); ABG PO2 78 mmHg (85-104); ABG TCO2 28 mEq/L (20-26)
[2018-08-12 17:17] LABS: BUN/Creatinine Ratio 21 (6-26); Blood Urea Nitrogen 24 mg/dL (8-23); Calcium 8.1 mg/dL (8.6-10.3); Carbon Dioxide 25 mEq/L (23-29); Chloride 107 mEq/L (98-107); Glucose 112 mg/dL (70-105); Osmolality,Calculated 297 (280-300); Sodium 141 mEq/L (136-145); eGFR For Non-African Americans > 60 (> 60)
[2018-08-12] MEDS ORDERED: Ipratropium/Albuterol Neb 3 ML IH SCH (18:00)
[2018-08-12] MEDS ORDERED: Warfarin perPT PO PRN (18:00)
[2018-08-12] MEDS ORDERED: Potassium Chloride 40 MEQ, Lidocaine 1% 2 ML in D5% in Water 500 ML IVPB ONE (18:48)
[2018-08-12] MEDS ORDERED: Gabapentin 300 MG CAPSULE PO SCH (21:00)
[2018-08-12] MEDS: Insulin DETEMIR 100 UNIT/ML X5UNITS SQ SCH (23:35)
[2018-08-13] MEDS: Ipratropium/Albuterol Neb 3 ML IH SCH ×4 (04:29→22:36)
[2018-08-13] MEDS ORDERED: D5% in Water 1,000 ML IVC PRN (05:02)
[2018-08-13] MEDS ORDERED: Dextrose Gel 15 GM/37.5 ML TUBE PO PRN ×2 (05:02)
[2018-08-13] MEDS ORDERED: *HR* Dextrose 50 % in Water (Syg) 50 ML SYRINGE IVP PRN (05:02)
[2018-08-13] MEDS: Insulin LISPRO 300 UNITS/3 ML VIAL SQ SCH ×4 (05:05→22:29)
[2018-08-13 05:42] LABS: Basophils % 0.1 %; Eosinophils # 0.1 K/mcL (0.0-0.6); Eosinophils % 1.8 %; Hematocrit 28.8 % (37.5-50.1); Immature Granulocytes % 0.8 % (0-4); Lymphocytes # 0.9 K/mcL (0.6-4.6); Lymphocytes % 11.3 %; Mean Corpuscular HGB Conc 31.3 g/dL (31.6-35.5); Mean Corpuscular Hemoglobin 28.4 pg (28.0-33.3); Mean Corpuscular Volume 90.9 fL (83.0-100.0); Monocytes # 0.8 K/mcL (0.0-1.3); Monocytes % 9.8 %; Neutrophils # 5.8 K/mcL (1.6-8.9); Platelet Count 229 K/mcL (140-400); Red Blood Count 3.17 M/mcL (4.19-5.50); Red Cell Distribution Width 19.6 % (11.5-14.5); Segmented Neutrophils % 76.2 %
[2018-08-13 05:47] LABS: INR 1.9
[2018-08-13 05:56] LABS: BUN/Creatinine Ratio 19 (6-26); Blood Urea Nitrogen 20 mg/dL (8-23); Calcium 8.2 mg/dL (8.6-10.3); Carbon Dioxide 25 mEq/L (23-29); Chloride 109 mEq/L (98-107); Glucose 112 mg/dL (70-105); Osmolality,Calculated 295 (280-300); Potassium 3.3 mEq/L (3.5-5.1); Sodium 141 mEq/L (136-145); eGFR For Non-African Americans > 60 (> 60)
[2018-08-13] MEDS ORDERED: Insulin LISPRO 300 UNITS/3 ML VIAL SQ SCH (06:00)
[2018-08-13] MEDS ORDERED: Cefepime HCl 2,000 MG in Water for inj. (sterile) 20 ML 20 ML IVP SCH (08:00)
[2018-08-13] MEDS ORDERED: Albuterol 2.5 MG/3 ML NEBULIZER IH PRN (08:31)
[2018-08-13] MEDS: *HR* Acetylcysteine 20% 600 MG/3 ML ORAL SYRINGE PO SCH ×3 (08:34→17:20)
[2018-08-13] MEDS: Finasteride 5 MG TABLET PO SCH (08:35)
[2018-08-13] MEDS: Loratadine 10 MG TABLET PO SCH (08:35)
[2018-08-13] MEDS: Acetaminophen 325 MG TABLET PO PRN (08:35)
[2018-08-13] MEDS: Levothyroxine Sodium 100 MCG VIAL IVP SCH (08:36)
[2018-08-13] MEDS: Diltiazem CD (24hr) 120 MG CAPSULE PO SCH (08:55)
[2018-08-13] MEDS: Cefepime HCl 2,000 MG in Water for inj. (sterile) 20 ML 20 ML IVP SCH ×2 (09:06→22:33)
--- NOTE | 2018-08-13 14:02 | Internal Med Progress Note ---
Hospitalist Progress Note - Encounter Date of Encounter: 08/13/18 Time of Encounter: 09:50 - Subjective Interval History: Patient much more awake and alert today. Complains of shortness of breath but much improved. No chest pain. He apparently became very stated last night and was at risk of harming others. According to the patient's family, [facility] has been [facility]. He has had low- grade fever this morning with temperature 100.4. - Exam Vitals: Temp Pulse Resp BP Pulse Ox 98.3 F 92 15 112/73 91 08/13/18 12:40 08/13/18 11:31 08/13/18 11:31 08/13/18 11:31 08/13/18 11:31 Exam: General: Patient is alert, oriented 1, mild distress Head: Bandage placed on sides of face due to pressure injury from BiPAP mask Respiratory: Decreased breath sounds at both bases Cardiovascular: Regular rate and rhythm. s1 and s2 normal . Mild bilateral pedal edema Abdomen: Abdomen is soft, nontender. Bowel sounds are present Musculoskeletal: Spontaneously moving all extremities Skin: warm, dry, intact. Neuro: Alert oriented x 1 normal cranial nerves, no focal deficits Psych: Patient's affect is flat - Assessment and Plan (1) Severe sepsis Current Visit: Yes Status: Acute Assessment and Plan: Improving. WBC count is normal now. Blood cultures, urine cultures and sputum cultures have been negative. We will begin to de-escalate antibiotics tomorrow provided patient does not have any more episodes of fever. Moderate risk for complications (2) UTI (urinary tract infection) Current Visit: Yes Status: Acute Assessment and Plan: With chronic indwelling Hoffman catheter. Urine cultures are negative. (3) Altered mental state Current Visit: Yes Status: Acute Assessment and Plan: Patient having episodes of sundowning/delirium. Likely related to underlying illness and infection along with chronic and recurrent hospitalizations. Will start him on risperidone at bedtime. (4) Pneumonia Current Visit: Yes Status: Acute Assessment and Plan: On broad-spectrum antibiotics. WBC count is improving. Respiratory infection panel positive for parainfluenza. Blood cultures have been negative. We will de-escalate antibiotics tomorrow if no more fevers. (5) COPD (chronic obstructive pulmonary disease) Current Visit: Yes Status: Chronic Assessment and Plan: Continue bronchodilators. Continue O2 supplementation. BiPAP as needed. (6) Diabetes mellitus Current Visit: Yes Status: Chronic Assessment and Plan: Blood sugars are well controlled at this time (7) Acute kidney injury Current Visit: Yes Status: Acute Assessment and Plan: Resolved (8) Atrial fibrillation with RVR Current Visit: Yes Status: Acute Assessment and Plan: Rate controlled. We will transition to oral Cardizem now the patient is able to take his meds. (9) Diastolic CHF Current Visit: Yes Status: Chronic Assessment and Plan: Chronic. Will resume Lasix now that his kidney function has normalized. (10) Respiratory failure Current Visit: Yes Status: Acute Assessment and Plan: Continue BiPAP as needed. Treat underlying pneumonia and COPD. (11) Supratherapeutic INR Current Visit: Yes Status: Resolved (12) Elevated lactic acid level Current Visit: Yes Status: Resolved (13) Hypokalemia Current Visit: Yes Status: Acute Assessment and Plan: We will continue to replete. (14) DVT prophylaxis Current Visit: No Status: Acute (15) Anemia Current Visit: Yes Status: Acute Assessment and Plan: Stable. Hemoglobin 9 today. - Time Spent with Patient Total time spent is greater than 50% in coordination of care (as documented) at patient's floor/unit and/or counseling patient: Internal Medicine: Result - Labs CBC & Chem 7: 08/13/18 05:27 08/13/18 05:27 Labs: Short CBC 08/13/18 Range/Units 05:27 WBC 7.6 (4.3-11.1) K/mcL Hgb 9.0 L (12.9-16.9) g/dL Hct 28.8 L (37.5-50.1) % Plt Count 229 (140-400) K/mcL Neutrophils # 5.8 (1.6-8.9) K/mcL BMP 08/12/18 08/13/18 16:43 05:27 Sodium 141 141 Potassium 3.0 L 3.3 L Chloride 107 109 H Carbon Dioxide 25 25 BUN 24 H 20 Creatinine 1.13 1.03 Glucose 112 H 112 H Calcium 8.1 L 8.2 L - ABG Interpretation ABG results: ABG ABG pH 7.44 pH Units (7.32-7.45) 08/12/18 16:57 ABG pCO2 40 mmHg (35-45) 08/12/18 16:57 ABG pO2 78 mmHg (85-104) L 08/12/18 16:57 ABG O2 Saturation 96 % (95-98) 08/12/18 16:57 PT/INR, D-dimer PT 21.0 Seconds (9.4-12.1) H 08/13/18 05:27 Consult Discharge Plan - Plan Referrals: Shayy Rodgers MD [Primary Care Provider] - (2) UTI (urinary tract infection) Qualifiers: Urinary tract infection type: acute cystitis Hematuria presence: with hematuria Qualified Code(s): N30.01 - Acute cystitis with hematuria (3) Altered mental state Qualifiers: Altered mental status type: delirium Qualified Code(s): R41.0 - Disorientation, unspecified (4) Pneumonia Qualifiers: Pneumonia type: due to unspecified organism Laterality: bilateral Lung location: lower lobe of lung Qualified Code(s): J18.1 - Lobar pneumonia, unspecified organism (5) COPD (chronic obstructive pulmonary disease) Qualifiers: COPD type: chronic bronchitis Chronic bronchitis type: unspecified Qualified Code(s): J42 - Unspecified chronic bronchitis (6) Diabetes mellitus Qualifiers: Diabetes mellitus type: type 2 Diabetes mellitus terminal manager insulin use: unspecified terminal manager insulin use status Diabetes mellitus complication status : with unspecified complications Qualified Code(s): E11.8 - Type 2 diabetes mellitus with unspecified complications (9) Diastolic CHF Qualifiers: Heart failure chronicity: chronic Qualified Code(s): I50.32 - Chronic diastolic (congestive) heart failure (10) Respiratory failure Qualifiers: Chronicity: acute on chronic Respiratory failure complication: hypoxia Qualified Code(s): J96.21 - Acute and chronic respiratory failure with hypoxia (15) Anemia Qualifiers: Anemia type: other cause Other causes of anemia: other cause, not classified Qualified Code(s): D64.89 - Other specified anemias
[2018-08-13] MEDS: Furosemide 40 MG TABLET PO SCH (17:19)
--- NOTE | 2018-08-13 17:35 | Electrocardiograph Report ---
[address] [place], [place] [address] Test Date: 2018-08-11 Pat Name: Natanael Doe Department: EXAM22 Room: 2A31 Gender: M Company Marker: : 1940 Requested By: Ruben Cano Order Number: [id number] Reading MD: Carolyn Go Measurements Intervals [place] Rate: 126 P: [place]: QRS: 44 QRSD: 105 T: 236 QT: 333 QTc: 483 Interpretive Statements Atrial fibrillation Nonspecific ST abnormalities Electronically Signed On 08-13-2018 17:33:20 EDT by Carolyn Go
--- NOTE | 2018-08-13 17:35 | Electrocardiograph Report ---
[address] [place], [place] [address] Test Date: 2018-08-11 Pat Name: Natanael Doe Department: EXAM22 Room: 2A31 Gender: M [employer]: : 1940 Requested By: Ruben Cano Order Number: [id number] Reading MD: Carolyn Go Measurements Intervals [place] Rate: 104 P: [place]: QRS: 56 QRSD: 101 T: 232 QT: 440 QTc: 579 Interpretive Statements Atrial fibrillation Nonspecific ST abnormalities Electronically Signed On 08-13-2018 17:33:48 EDT by Carolyn Go
[2018-08-13] MEDS ORDERED: *HR* Warfarin 3 MG TABLET PO ONE (18:00)
[2018-08-13] MEDS: Lactobacillus 1 EACH CAP.SPRINK PO SCH (22:13)
[2018-08-13] MEDS: risperiDONE 0.25 MG TABLET PO SCH (22:14)
[2018-08-13] MEDS ORDERED: *HR* LORazepam 2 MG/ML VIAL IVP ONE (22:19)
[2018-08-13] MEDS: Insulin DETEMIR 100 UNIT/ML X5UNITS SQ SCH (22:30)
[2018-08-14] MEDS: Ipratropium/Albuterol Neb 3 ML IH SCH ×4 (03:48→22:33)
[2018-08-14 06:19] LABS: Basophils % 0.3 %; Eosinophils # 0.2 K/mcL (0.0-0.6); Eosinophils % 1.9 %; Hematocrit 28.5 % (37.5-50.1); Hemoglobin 8.9 g/dL (12.9-16.9); Immature Granulocytes % 1.3 % (0-4); Lymphocytes # 0.7 K/mcL (0.6-4.6); Lymphocytes % 9.5 %; Mean Corpuscular HGB Conc 31.2 g/dL (31.6-35.5); Mean Corpuscular Hemoglobin 28.8 pg (28.0-33.3); Mean Corpuscular Volume 92.2 fL (83.0-100.0); Mean Platelet Volume 9.5 fL (9.4-12.4); Monocytes # 0.7 K/mcL (0.0-1.3); Monocytes % 9.1 %; Neutrophils # 6.1 K/mcL (1.6-8.9); Platelet Count 269 K/mcL (140-400); Red Blood Count 3.09 M/mcL (4.19-5.50); Red Cell Distribution Width 19.8 % (11.5-14.5); Segmented Neutrophils % 77.9 %
[2018-08-14 06:26] LABS: INR 1.8; Prothrombin Time 20.8 Seconds (9.4-12.1)
[2018-08-14 06:37] LABS: BUN/Creatinine Ratio 17 (6-26); Blood Urea Nitrogen 17 mg/dL (8-23); Calcium 8.3 mg/dL (8.6-10.3); Carbon Dioxide 25 mEq/L (23-29); Chloride 109 mEq/L (98-107); Glucose 110 mg/dL (70-105); Osmolality,Calculated 298 (280-300); Potassium 3.4 mEq/L (3.5-5.1); Sodium 143 mEq/L (136-145); eGFR For Non-African Americans > 60 (> 60)
[2018-08-14] MEDS: Insulin LISPRO 300 UNITS/3 ML VIAL SQ SCH ×4 (07:24→23:16)
[2018-08-14] MEDS: Acetaminophen 325 MG TABLET PO PRN (09:55)
[2018-08-14] MEDS: Diltiazem CD (24hr) 120 MG CAPSULE PO SCH (09:56)
[2018-08-14] MEDS: Finasteride 5 MG TABLET PO SCH (09:56)
[2018-08-14] MEDS: Loratadine 10 MG TABLET PO SCH (09:56)
[2018-08-14] MEDS: *HR* Acetylcysteine 20% 600 MG/3 ML ORAL SYRINGE PO SCH ×3 (09:56→17:29)
[2018-08-14] MEDS: Lactobacillus 1 EACH CAP.SPRINK PO SCH ×2 (09:56→23:38)
[2018-08-14] MEDS: Furosemide 40 MG TABLET PO SCH ×2 (09:57→17:29)
[2018-08-14] MEDS: Cefepime HCl 2,000 MG in Water for inj. (sterile) 20 ML 20 ML IVP SCH ×2 (09:57→23:20)
[2018-08-14 13:37] LABS: ABG Base Excess 1 mEq/L (-2 to 3); ABG HCO3 26 mEq/L (21-27); ABG Oxygen Saturation 92 % (95-98); ABG PCO2 37 mmHg (35-45); ABG PH 7.44 pH Units (7.32-7.45); ABG PO2 62 mmHg (85-104); ABG TCO2 27 mEq/L (20-26)
[2018-08-14] MEDS ORDERED: *HR* Warfarin 3 MG TABLET PO ONE (18:00)
--- NOTE | 2018-08-14 19:22 | Internal Med Progress Note ---
Hospitalist Progress Note - Encounter Date of Encounter: 08/14/18 Time of Encounter: 11:00 - Subjective Interval History: Patient presented from the [facility] due to altered mental status and shortness of breath found to be septic with pneumonia/influenza in addition to UTI with acute renal failure. Patient still with altered mental status this morning although leukocytosis has resolved and patient has been afebrile - Exam Vitals: Temp Pulse Resp BP Pulse Ox 98.4 F 96 17 119/71 90 08/14/18 15:51 08/14/18 15:51 08/14/18 15:56 08/14/18 15:51 08/14/18 15:56 Exam: Gen.: Nonacute distress, confusion ENT: Mucosal membranes moist Cardiovascular: Normal S1 and S2 regular rate rhythm no murmurs rubs or gallops Abdomen: Soft, nontender and nondistended with positive bowel sounds Extremities: No lower extremity edema Skin: Normal color - Assessment and Plan (1) Pneumonia Current Visit: Yes Status: Acute Assessment and Plan: Patient leukocytosis has resolved and afebrile Continue IV vancomycin and IV cefepime (2) Altered mental state Current Visit: Yes Status: Acute Assessment and Plan: Patient having episodes of sundowning/delirium. Likely related to underlying illness and infection along with chronic and recurrent hospitalizations. Patient started on risperidone at bedtime. (3) Respiratory failure Current Visit: Yes Status: Acute Assessment and Plan: Continue BiPAP as needed. Treat underlying pneumonia and COPD. (4) Severe sepsis Current Visit: Yes Status: Acute Assessment and Plan: Improving. WBC count is normal now. Blood cultures, urine cultures and sputum cultures have been negative. (5) COPD (chronic obstructive pulmonary disease) Current Visit: Yes Status: Chronic Assessment and Plan: Continue bronchodilators. Continue O2 supplementation. BiPAP as needed. (6) Diabetes mellitus Current Visit: Yes Status: Chronic Assessment and Plan: Blood sugars are well controlled at this time (7) Acute kidney injury Current Visit: Yes Status: Acute Assessment and Plan: Resolved (8) Atrial fibrillation with RVR Current Visit: Yes Status: Acute Assessment and Plan: Rate controlled. Continue oral Cardizem (9) Diastolic CHF Current Visit: Yes Status: Chronic Assessment and Plan: Chronic. Continue by mouth Lasix (10) UTI (urinary tract infection) Current Visit: Yes Status: Acute Assessment and Plan: With chronic indwelling Hoffman catheter. Urine cultures are negative. (11) Supratherapeutic INR Current Visit: Yes Status: Resolved Assessment and Plan: Resolved; Coumadin resumed (12) Hypokalemia Current Visit: Yes Status: Acute Assessment and Plan: Replacements as needed. (13) Anemia Current Visit: Yes Status: Acute Assessment and Plan: Stable; continue to monitor (14) DVT prophylaxis Current Visit: No Status: Acute Assessment and Plan: On Coumadin. Currently therapeutic. - Time Spent with Patient Total time spent is greater than 50% in coordination of care (as documented) at patient's floor/unit and/or counseling patient: Internal Medicine: Result - Labs CBC & Chem 7: 08/14/18 05:45 08/14/18 05:45 Labs: Short CBC 08/14/18 Range/Units 05:45 WBC 7.8 (4.3-11.1) K/mcL Hgb 8.9 L (12.9-16.9) g/dL Hct 28.5 L (37.5-50.1) % Plt Count 269 (140-400) K/mcL Neutrophils # 6.1 (1.6-8.9) K/mcL BMP 08/14/18 05:45 Sodium 143 Potassium 3.4 L Chloride 109 H Carbon Dioxide 25 BUN 17 Creatinine 1.03 Glucose 110 H Calcium 8.3 L - ABG Interpretation ABG results: ABG ABG pH 7.44 pH Units (7.32-7.45) 08/14/18 13:31 ABG pCO2 37 mmHg (35-45) 08/14/18 13:31 ABG pO2 62 mmHg (85-104) L 08/14/18 13:31 ABG O2 Saturation 92 % (95-98) L 08/14/18 13:31 PT/INR, D-dimer PT 20.8 Seconds (9.4-12.1) H 08/14/18 05:45 Consult Discharge Plan - Plan Referrals: Shayy Rodgers MD [Primary Care Provider] - (1) Pneumonia Qualifiers: Pneumonia type: due to unspecified organism Laterality: bilateral Lung location: lower lobe of lung Qualified Code(s): J18.1 - Lobar pneumonia, unspecified organism (2) Altered mental state Qualifiers: Altered mental status type: delirium Qualified Code(s): R41.0 - Disorientation, unspecified (3) Respiratory failure Qualifiers: Chronicity: acute on chronic Respiratory failure complication: hypoxia Qualified Code(s): J96.21 - Acute and chronic respiratory failure with hypoxia (5) COPD (chronic obstructive pulmonary disease) Qualifiers: COPD type: chronic bronchitis Chronic bronchitis type: unspecified Qualified Code(s): J42 - Unspecified chronic bronchitis (6) Diabetes mellitus Qualifiers: Diabetes mellitus type: type 2 Diabetes mellitus intermediate manager insulin use: unspecified intermediate manager insulin use status Diabetes mellitus complication status : with unspecified complications Qualified Code(s): E11.8 - Type 2 diabetes mellitus with unspecified complications (9) Diastolic CHF Qualifiers: Heart failure chronicity: chronic Qualified Code(s): I50.32 - Chronic diastolic (congestive) heart failure (10) UTI (urinary tract infection) Qualifiers: Urinary tract infection type: acute cystitis Hematuria presence: with hematuria Qualified Code(s): N30.01 - Acute cystitis with hematuria (13) Anemia Qualifiers: Anemia type: other cause Other causes of anemia: other cause, not classified Qualified Code(s): D64.89 - Other specified anemias
[2018-08-14] MEDS ORDERED: *HR* LORazepam 2 MG/ML VIAL IVP ONE (21:04)
[2018-08-14] MEDS: Insulin DETEMIR 100 UNIT/ML X5UNITS SQ SCH (23:16)
[2018-08-14] MEDS: risperiDONE 0.25 MG TABLET PO SCH (23:38)
[2018-08-15] MEDS ORDERED: *HR* LORazepam 2 MG/ML VIAL ONE ×2 (03:14→05:31)
[2018-08-15] MEDS: Ipratropium/Albuterol Neb 3 ML IH SCH ×2 (03:58→10:54)
[2018-08-15] MEDS ORDERED: Haloperidol Lactate 5 MG/ML VIAL IVP ONE (05:38)
[2018-08-15 05:41] LABS: INR 2.5; Prothrombin Time 28.6 Seconds (9.4-12.1)
[2018-08-15] MEDS ORDERED: Haloperidol Lactate 5 MG/ML VIAL ONE (05:41)
[2018-08-15] MEDS: Diltiazem CD (24hr) 120 MG CAPSULE PO SCH (10:17)
[2018-08-15] MEDS: *HR* Acetylcysteine 20% 600 MG/3 ML ORAL SYRINGE PO SCH ×2 (10:17→12:22)
[2018-08-15] MEDS: Loratadine 10 MG TABLET PO SCH (10:17)
[2018-08-15] MEDS: Furosemide 40 MG TABLET PO SCH (10:17)
[2018-08-15] MEDS: Lactobacillus 1 EACH CAP.SPRINK PO SCH (10:18)
[2018-08-15] MEDS: Finasteride 5 MG TABLET PO SCH (10:18)
[2018-08-15] MEDS: Insulin LISPRO 300 UNITS/3 ML VIAL SQ SCH ×2 (10:19→12:22)
--- NOTE | 2018-08-15 10:25 | Palliative - Consult Note ---
Date of Encounter: 08/15/18 Time of Encounter: 10:20 - Assessment and Plan (1) Dyspnea Current Visit: Yes Status: Acute Assessment and plan: He remains on bipap at this time. Discussing transition to comfort care with family with beginning of opioids and eventually d/c bipap when comfortable and resting well. Qualifiers: Dyspnea type: unspecified Qualified Code(s): R06.00 - Dyspnea, unspecified (2) Generalized pain Current Visit: Yes Status: Acute Assessment and plan: Will begin opioids and titrate as necessary. (3) Agitation Current Visit: Yes Status: Acute Assessment and plan: Will begin scheduled Haloperidol and d/c restraints once relaxed and bipap removed. (4) Anxiety Current Visit: Yes Status: Acute Assessment and plan: Begin low dose Lorazepam PRN. (5) Goals of care, counseling/discussion Current Visit: Yes Status: Acute Assessment and plan: Multiple family members at bedside, , children, and grandchildren. states that his condition has been declining over the past few months, and he has been unable to stay out of hospital. He now has altered mental status as well, and has been restrained to avoid discontinuation of bipap/lines. She states that she no longer wants to see him like this, and although she has been insistent on full code in the past, she is ready to keep him comfortable and put him in God's hands. She states "He can't live on that bipap machine, that' s not living" " I just want him to pass comfortably". She wants to change code status to DNRCC. I spoke with them about transition to inpatient hospice, beginning opioid infusion, and discontinuing bipap. states that she would want him to stay here for this process, doesn't want him to pass away at home. Discussed that we can transition to inpt hospice, however, if his condition would stabilize, we would still need to prepare a discharge plan. She verbalized understanding. Will D/W [facility] and hospitalist. (6) COPD exacerbation Current Visit: No Status: Acute (7) Acute respiratory failure with hypoxia Current Visit: No Status: Acute (8) Pneumonia Current Visit: Yes Status: Acute Qualifiers: Pneumonia type: due to unspecified organism Laterality: bilateral Lung location: lower lobe of lung Qualified Code(s): J18.1 - Lobar pneumonia, unspecified organism Palliative-CN HPI - Data of Consult Consult date: 08/15/18 Requesting Physician: Alexander Galeas Primary Care Provider: Shayy Rodgers MD - Consult Narrative History of present illness: Mr. Doe is a 78 year old male who was sent from the [facility] for increased confusion and shortness of breath. He has had multiple hospitalizations (7) since May with issues with Atrial fib, Sepsis, COPD and CHF. He was admitted and treated for sepsis/pneumonia/respiratory failure with IV atb/aerosols/oxygen /bipap, but has bonifacio improved and mental status remains altered. He has been agitated to the point he had to be restrained for the fact of pulling out lines and tubes. Past medical history includes: COPD, diabetes, GERD, hypertension, hyperlipidemia, diastolic CHF, atrial fibrillation/a flutter status post pacemaker was brought in from extended care facility because of confusion and difficulty breathing. Significant history could not be obtained from the patient as he was not arousable and was on BiPAP. History obtained from and daughter at bedside and medical record. He has chronic indwelling Hoffman catheter for bladder outlet obstruction which was present at that visit 4 month. Upon my visit, he is sleeping on bipap, and becomes restless upon examination. No verbal response and does not follow commands. Multiple family members at bedside. States he has been complaining of pain all over when he was awake and communicating, and rubbing his abdomen. Had nausea and dizziness at [facility] prior to hospital stay. Palliative was consulted to assist with goals of care discussion and symptom management. CC: Alexander Galeas - Time Spent with Patient Time: Total time spent is greater than 50% in coordination of care (as documented) at patient's floor/unit and/or counseling patient: Greater than 35 minutes (60 min spent with pt/family in coordination of care and counseling) Past Med Surg Social Fam HX - Past Medical History Medical history: arthritis, atrial fibrillation, COPD, diabetes, GERD, hyperlipidemia, hypertension, thyroid disease, other Additional medical history: OA, PE Psychiatric history: no psych history - Past Surgical History Surgical History: cholecystectomy, knee replacement, orthopedic, other, pacemaker Additional surgical history: bilateral knee replacement, Right shoulder, heart cath with no stent placement. - Social History Smoking Status: Former smoker Smokeless Tobacco Status: No Alcohol use: none Drug use: none - Family History Mother Name: Ellen Henderson Living Status: Age at : 68 Cause of : Breast Cancer Metastasis Hx Family Cancer: Yes (Metastatic breast cancer) Hx Family Endocrine Disorder: Yes (DM) Father Adopted: [place]: [place] Family Member Ethnicity: Non- Living Status: Cause of : Cancer Hx Family Cardiac Disorders: No Hx Family Respiratory Disorders: Yes (Asbestosis) Hx Family Cancer: Yes (Lung CA) Hx Family GI Disorders: No Hx Family Endocrine Disorder: No Hx Family Neuromuscular Disorders: No Hx Family Neurologic Disorders: No Hx Family HEENT Disorders: No Hx Family Autoimmune Disorders: No Medications and Allergies Acetylcysteine [R-Bedcvz-p-Cysteine] 600 mg PO TIDAC 05/17/18 [History] Amitriptyline HCl 100 mg PO DAILY 05/17/18 [History] Atorvastatin Calcium [Lipitor] 20 mg PO HS 05/17/18 [History] Finasteride [Proscar] 5 mg PO DAILY 05/17/18 [History] Fish Oil/Dha/Epa [Fish Oil 1,200 mg Fish Oil] 1 cap PO DAILY 05/17/18 [History] Fluticasone/Salmeterol [Advair Hfa 230-21 Mcg Inhaler] 1 puff IH DAILY 05/17/18 [History] Levothyroxine [Synthroid] 125 mcg PO 0630 05/17/18 [History] Loratadine [Claritin] 10 mg PO DAILY 05/17/18 [History] Lutein 20 mg PO DAILY 05/17/18 [History] Metformin HCl [Glucophage] 1,000 mg PO BID 05/17/18 [History] Ipratropium/Albuterol Neb [Duoneb] 3 ml IH Q6HR 06/01/18 [History] Polyethylene Glycol 3350 [MiraLAX] 17 gm PO DAILY PRN 06/01/18 [History] Aspirin [Ecotrin] 81 mg PO DAILY 30 Days #30 tablet. 06/22/18 [Rx] Omeprazole 20 mg PO DAILY 30 Days #30 tablet. 06/22/18 [Rx] Furosemide [Lasix] 40 mg PO BID 06/29/18 [History] SitaGLIPtin [Januvia] 100 mg PO DAILY 06/29/18 [History] Vit A/Vit C/Vit E/Zinc/Copper [Preservision Areds Tablet] 1 tab PO DAILY [History] Gabapentin [Neurontin] 300 mg PO TID #90 capsule 07/04/18 [Rx] Metoprolol [Lopressor] 50 mg PO BID #60 tablet 07/04/18 [Rx] Tamsulosin [Flomax] 0.4 mg PO DAILY #30 capsule 07/04/18 [Rx] Warfarin [Coumadin] 7 mg PO SUMOTUWEFRSA 07/31/18 [History] Warfarin [Coumadin] 9 mg PO TH 07/31/18 [History] Diltiazem CD (24hr) [Cardizem CD] 120 mg PO DAILY 30 Days #30 cap.er.24h [Rx] Docusate [Colace] 100 mg PO BID 30 Days #60 capsule 08/03/18 [Rx] Insulin DETEMIR [Levemir] 10 unit SQ BID #1 [id number] 08/03/18 [Rx] 3 Allergy/AdvReac Type Severity Reaction Status Date / Time No Known Allergies Allergy Verified 05/17/18 20:27 ROS unobtainable: due to mental status Palliative Care-Exam - Constitutional Vitals: Temp Pulse Resp BP Pulse Ox 97.8 F 103 20 133/83 100 08/15/18 06:59 08/15/18 06:59 08/15/18 06:59 08/15/18 06:59 08/15/18 06:59 General appearance: Present: no acute distress, obese - Head Head Exam: Present: normal inspection, normocephalic - Respiratory Respiratory exam: Present: decreased breath sounds Additional comments: Remains on BIPAP at this time. - Cardiovascular Cardiovascular exam: Present: +S1, +S2 - GI/Abdominal Exam GI/Abdominal exam: Present: normal bowel sounds, soft - Catheter Type: Urethral (Hoffman) - Extremities Exam Additional comments: Skin to feet bilaterally red and flaky - Neurological Exam Additional comments: Patient sleeping on bipap, when aroused is confused and agitated. Restrained. - Skin Skin exam: Present: dry, pallor, warm Internal Medicine - CN: Reslt - Labs CBC & Chem 7: 08/14/18 05:45 08/14/18 05:45 - ABG Interpretation ABG results: ABG ABG pH 7.44 pH Units (7.32-7.45) 08/14/18 13:31 ABG pCO2 37 mmHg (35-45) 08/14/18 13:31 ABG pO2 62 mmHg (85-104) L 08/14/18 13:31 ABG O2 Saturation 92 % (95-98) L 08/14/18 13:31 PT/INR, D-dimer PT 28.6 Seconds (9.4-12.1) H 08/15/18 04:57 Consult Discharge Plan - Plan Referrals: Shayy Rodgers MD [Primary Care Provider] - Palliative Quality Palliative Quality: Screen for Code Status: Yes, Screen for Goals of Care: Yes, Screen for Pain: Yes, If Pain Regimen Started, Initiate Bowel Regimen: NA, Screen for Nausea/Vomitting: Yes
[2018-08-15] MEDS: Cefepime HCl 2,000 MG in Water for inj. (sterile) 20 ML 20 ML IVP SCH (10:30)
[2018-08-15 10:35] LABS: Basophils % 0.3 %; Eosinophils # 0.2 K/mcL (0.0-0.6); Eosinophils % 2.4 %; Hematocrit 30.6 % (37.5-50.1); Hemoglobin 9.2 g/dL (12.9-16.9); Immature Granulocytes % 1.4 % (0-4); Lymphocytes # 0.8 K/mcL (0.6-4.6); Lymphocytes % 9.6 %; Mean Corpuscular HGB Conc 30.1 g/dL (31.6-35.5); Mean Corpuscular Volume 93.3 fL (83.0-100.0); Mean Platelet Volume 10.3 fL (9.4-12.4); Monocytes # 0.7 K/mcL (0.0-1.3); Monocytes % 8.4 %; Neutrophils # 6.7 K/mcL (1.6-8.9); Platelet Count 325 K/mcL (140-400); Red Blood Count 3.28 M/mcL (4.19-5.50); Red Cell Distribution Width 20.2 % (11.5-14.5); Segmented Neutrophils % 77.9 %
[2018-08-15 10:44] LABS: BUN/Creatinine Ratio 14 (6-26); Blood Urea Nitrogen 15 mg/dL (8-23); Calcium 8.2 mg/dL (8.6-10.3); Carbon Dioxide 25 mEq/L (23-29); Chloride 108 mEq/L (98-107); Glucose 124 mg/dL (70-105); Osmolality,Calculated 302 (280-300); Potassium 3.6 mEq/L (3.5-5.1); Sodium 145 mEq/L (136-145); eGFR For Non-African Americans > 60 (> 60)
[2018-08-15 11:02] VITALS: BP 135/79
--- NOTE | 2018-08-15 13:54 | Discharge Summary ---
Orders not resulted at time of discharge: Pending orders 08/16/18 04:00 PT/INR [Prothrombin Time INR] [COAG] AM 0400 08/17/18 04:00 PT/INR [Prothrombin Time INR] [COAG] AM 0400 08/18/18 04:00 PT/INR [Prothrombin Time INR] [COAG] AM 0400 Date of Encounter: 08/16/18 Time of Encounter: 11:00 - Discharge Diagnosis (1) Pneumonia Priority: Primary Status: Acute Qualifiers: Pneumonia type: due to unspecified organism Laterality: bilateral Lung location: lower lobe of lung Qualified Code(s): J18.1 - Lobar pneumonia, unspecified organism (2) Altered mental state Priority: Primary Status: Acute Qualifiers: Altered mental status type: delirium Qualified Code(s): R41.0 - Disorientation, unspecified (3) Respiratory failure Priority: Primary Status: Acute Qualifiers: Chronicity: acute on chronic Respiratory failure complication: hypoxia Qualified Code(s): J96.21 - Acute and chronic respiratory failure with hypoxia (4) Severe sepsis Priority: Primary Status: Acute (5) COPD (chronic obstructive pulmonary disease) Priority: Secondary Status: Chronic Qualifiers: COPD type: chronic bronchitis Chronic bronchitis type: unspecified Qualified Code(s): J42 - Unspecified chronic bronchitis (6) Diabetes mellitus Priority: Secondary Status: Chronic Qualifiers: Diabetes mellitus type: type 2 Diabetes mellitus prison insulin use: unspecified prison insulin use status Diabetes mellitus complication status : with unspecified complications Qualified Code(s): E11.8 - Type 2 diabetes mellitus with unspecified complications (7) Acute kidney injury Priority: Primary Status: Acute (8) Atrial fibrillation with RVR Priority: Primary Status: Acute (9) Diastolic CHF Priority: Secondary Status: Chronic Qualifiers: Heart failure chronicity: chronic Qualified Code(s): I50.32 - Chronic diastolic (congestive) heart failure (10) UTI (urinary tract infection) Priority: Secondary Status: Acute Qualifiers: Urinary tract infection type: acute cystitis Hematuria presence: with hematuria Qualified Code(s): N30.01 - Acute cystitis with hematuria (11) Supratherapeutic INR Priority: Primary Status: Resolved (12) Hypokalemia Priority: Primary Status: Acute (13) Anemia Priority: Secondary Status: Acute Qualifiers: Anemia type: other cause Other causes of anemia: other cause, not classified Qualified Code(s): D64.89 - Other specified anemias Hospital course: Patient is a 78-year-old male with past medical history significant for COPD, diabetes, GERD, hypertension, hyperlipidemia, diastolic CHF, atrial fibrillation /a flutter status post pacemaker was brought in from [facility] because of confusion and difficulty breathing. Patient was noted to be confused the day prior to admission per /daughter. The morning of admission, patient had difficulty breathing with continued confusion. Patient was sent from the extended care facility to ER. During patients hospital stay he was treated for acute on chronic respiratory failure with severe sepsis secondary to pneumonia on IV vancomycin and IV cefepime. Patient however never improved and prognosis poor given patients multiple comorbidities. Palliative care was consulted and a discussion with family resulted in patient CODE STATUS being changed to DNR CC and a decision was made to place patient in inpatient hospice care. Patient will be discharged to hospice services as an inpatient. - Time Spent with Patient Total time spent providing and/or coordinating discharge services: Less than 30 minutes - Discharge Medications Home Medications: Acetylcysteine [R-Gnmnli-y-Cysteine] 600 mg PO TIDAC 05/17/18 [History] Amitriptyline HCl 100 mg PO DAILY 05/17/18 [History] Atorvastatin Calcium [Lipitor] 20 mg PO HS 05/17/18 [History] Finasteride [Proscar] 5 mg PO DAILY 05/17/18 [History] Fish Oil/Dha/Epa [Fish Oil 1,200 mg Fish Oil] 1 cap PO DAILY 05/17/18 [History] Fluticasone/Salmeterol [Advair Hfa 230-21 Mcg Inhaler] 1 puff IH DAILY 05/17/18 [History] Levothyroxine [Synthroid] 125 mcg PO 0630 05/17/18 [History] Loratadine [Claritin] 10 mg PO DAILY 05/17/18 [History] Lutein 20 mg PO DAILY 05/17/18 [History] Metformin HCl [Glucophage] 1,000 mg PO BID 05/17/18 [History] Ipratropium/Albuterol Neb [Duoneb] 3 ml IH Q6HR 06/01/18 [History] Polyethylene Glycol 3350 [MiraLAX] 17 gm PO DAILY PRN 06/01/18 [History] Aspirin [Ecotrin] 81 mg PO DAILY 30 Days #30 tablet. 06/22/18 [Rx] Omeprazole 20 mg PO DAILY 30 Days #30 tablet. 06/22/18 [Rx] Furosemide [Lasix] 40 mg PO BID 06/29/18 [History] SitaGLIPtin [Januvia] 100 mg PO DAILY 06/29/18 [History] Vit A/Vit C/Vit E/Zinc/Copper [Preservision Areds Tablet] 1 tab PO DAILY [History] Gabapentin [Neurontin] 300 mg PO TID #90 capsule 07/04/18 [Rx] Metoprolol [Lopressor] 50 mg PO BID #60 tablet 07/04/18 [Rx] Tamsulosin [Flomax] 0.4 mg PO DAILY #30 capsule 07/04/18 [Rx] Warfarin [Coumadin] 7 mg PO SUMOTUWEFRSA 07/31/18 [History] Warfarin [Coumadin] 9 mg PO TH 07/31/18 [History] Diltiazem CD (24hr) [Cardizem CD] 120 mg PO DAILY 30 Days #30 cap.er.24h [Rx] Docusate [Colace] 100 mg PO BID 30 Days #60 capsule 08/03/18 [Rx] Insulin DETEMIR [Levemir] 10 unit SQ BID #1 [id number] 08/03/18 [Rx] Allergies/Adverse Reactions: 3 Allergy/AdvReac Type Severity Reaction Status Date / Time No Known Allergies Allergy Verified 05/17/18 20:27 Date of admission: 08/11/18 12:50 Primary care physician: Shayy Rodgers MD Consults: 08/11/18 13:09 Consult to Nutrition [CONS] Routine Comment: Consulting Provider: NUTRITION Reason for Dietary Consult: MST Score Consult to Pastoral Services [CONS] Routine Comment: Family requested Perfecto Lopez 08/13/18 14:38 Consult to Sql Developer Dba [CONS] Routine Reason for SW Consult: rtn to [facility] 08/15/18 07:28 Consult to Palliative Care [CONS] Stat Comment: Consulting Provider: Palliative Care Scarlet Reason for Consult: Family request Call Completed: No - Constitutional Vitals: Temp Pulse Resp BP Pulse Ox 97.7 F 101 20 135/79 99 08/15/18 11:01 08/15/18 11:01 08/15/18 11:01 08/15/18 11:01 08/15/18 11:01 Exam: Gen.: Nonacute distress, confusion - Patient Status Disposition: Hospice - Medical Facility Condition: Fair - Discharge Instructions Follow Up With: Shayy Rodgers MD [Primary Care Provider] - Forms: ED Satisfaction Letter
--- NOTE | 2018-08-15 13:56 | Physician Discharge Referral ---
Home Health/Hosp Referral Info Transfer to: Hospice Provider in Charge Post Discharge: Vice President [employer] - Diagnosis (1) Pneumonia Status: Acute (2) Altered mental state Status: Acute (3) Respiratory failure Status: Acute (4) Severe sepsis Status: Acute (5) COPD (chronic obstructive pulmonary disease) Status: Chronic (6) Diabetes mellitus Status: Chronic (7) Acute kidney injury Status: Acute (8) Atrial fibrillation with RVR Status: Acute (9) Diastolic CHF Status: Chronic (10) UTI (urinary tract infection) Status: Acute (11) Supratherapeutic INR Status: Resolved (12) Hypokalemia Status: Acute (13) Anemia Status: Acute (14) DVT prophylaxis Status: Acute - Respiratory Orders Smoking Cessation: Smoking cessation has been advised. For more information, call the [employer] Quit Line at 3-602-TLKX-NOW. - Transfer Medications Home Medications: Acetylcysteine [Y-Uipeza-m-Cysteine] 600 mg PO TIDAC 05/17/18 [History] Amitriptyline HCl 100 mg PO DAILY 05/17/18 [History] Atorvastatin Calcium [Lipitor] 20 mg PO HS 05/17/18 [History] Finasteride [Proscar] 5 mg PO DAILY 05/17/18 [History] Fish Oil/Dha/Epa [Fish Oil 1,200 mg Fish Oil] 1 cap PO DAILY 05/17/18 [History] Fluticasone/Salmeterol [Advair Hfa 230-21 Mcg Inhaler] 1 puff IH DAILY 05/17/18 [History] Levothyroxine [Synthroid] 125 mcg PO 0630 05/17/18 [History] Loratadine [Claritin] 10 mg PO DAILY 05/17/18 [History] Lutein 20 mg PO DAILY 05/17/18 [History] Metformin HCl [Glucophage] 1,000 mg PO BID 05/17/18 [History] Ipratropium/Albuterol Neb [Duoneb] 3 ml IH Q6HR 06/01/18 [History] Polyethylene Glycol 3350 [MiraLAX] 17 gm PO DAILY PRN 06/01/18 [History] Aspirin [Ecotrin] 81 mg PO DAILY 30 Days #30 tablet. 06/22/18 [Rx] Omeprazole 20 mg PO DAILY 30 Days #30 tablet. 06/22/18 [Rx] Furosemide [Lasix] 40 mg PO BID 06/29/18 [History] SitaGLIPtin [Januvia] 100 mg PO DAILY 06/29/18 [History] Vit A/Vit C/Vit E/Zinc/Copper [Preservision Areds Tablet] 1 tab PO DAILY [History] Gabapentin [Neurontin] 300 mg PO TID #90 capsule 07/04/18 [Rx] Metoprolol [Lopressor] 50 mg PO BID #60 tablet 07/04/18 [Rx] Tamsulosin [Flomax] 0.4 mg PO DAILY #30 capsule 07/04/18 [Rx] Warfarin [Coumadin] 7 mg PO SUMOTUWEFRSA 07/31/18 [History] Warfarin [Coumadin] 9 mg PO TH 07/31/18 [History] Diltiazem CD (24hr) [Cardizem CD] 120 mg PO DAILY 30 Days #30 cap.er.24h [Rx] Docusate [Colace] 100 mg PO BID 30 Days #60 capsule 08/03/18 [Rx] Insulin DETEMIR [Levemir] 10 unit SQ BID #1 [id number] 08/03/18 [Rx] Allergies/Adverse Reactions: 3 Allergy/AdvReac Type Severity Reaction Status Date / Time No Known Allergies Allergy Verified 05/17/18 20:27 Certification: Further, I certify that my clinical findings support that this patient is homebound (i.e. absences from home require considerable and taxing effort and are for medical reasons or jewish services or infrequently or short duration when for other reasons) because: Homebound Reason: Patient requires assistance of a person or device to safely leave home Attestation: My signature below is to certify that this patient is under my care and that I, or nurse practitioner, or a physician's therapist's assistant working with me, has a face-to -face encounter with this patient.
[2018-08-15] MEDS ORDERED: Aminoglycoside Consult 1 EACH MC ONE (14:51)
--- NOTE | 2018-08-18 11:52 | Electrocardiograph Report ---
[place] [id number] Test Date: 2018-08-13 Pat Name: Natanael Doe Department: 109 Room: 2A45 Gender: M Acupressure Therapist: DARREL : 1940 Requested By: Yanet Martin Order Number: [id number] Reading MD: Jace Calvert Measurements Intervals [place] Rate: 77 P: TN: 0 QRS: 29 QRSD: 110 T: -60 QT: 423 QTc: 455 Interpretive Statements ATRIAL FLUTTER/TACHYCARDIA NONSPECIFIC ST & T-WAVE ABNORMALITY Electronically Signed On 08-18-2018 11:50:05 EDT by Jace Calvert
== END 2018-08-15 14:52 | disposition hospice, inpatient (51) | DRG 871 ==
LOC: EMEROOARM 07:43 → 2ANU 07:43 → SUATTDRO 12:50 → 2ANU 08-15 14:09
PROVIDERS: ADMIT Internal Medicine; ATTEND Hospitalist

== ENCOUNTER 2018-08-15 13:08 | Inpatient (IN) ==
[2018-08-15] MEDS ORDERED: Ondansetron 4 MG/2 ML VIAL IVP PRN (13:18)
[2018-08-15] MEDS ORDERED: Bisacodyl 10 MG RECTAL SUPPOSITORY RC PRN (13:18)
[2018-08-15] MEDS ORDERED: Ipratropium/Albuterol Neb 3 ML IH PRN (13:18)
[2018-08-15] MEDS: FentaNYL (PF) 1,000 MCG in 0.9 % Sodium Chloride 80 ML IVC SCH (15:52)
[2018-08-15] MEDS: Haloperidol Lactate 5 MG/ML VIAL IVP SCH ×2 (15:55→21:40)
--- NOTE | 2018-08-15 16:14 | Pallative History & Physical ---
Date of Encounter: 08/15/18 Time of Encounter: 16:00 Assessment and Plan (1) Acute and chronic respiratory failure with hypoxia Current visit: No Status: Acute (2) Agitation Current visit: No Status: Acute Haldol PRN for comfort. (3) Anxiety Current visit: No Status: Acute Ativan PRN for comfort. (4) COPD exacerbation Current visit: No Status: Acute (5) Dyspnea Current visit: No Status: Acute Remains on BiPAP at this time. Plan to discontinue once comfortable. Fentanyl infusion ordered. Qualifiers: Dyspnea type: unspecified Qualified Code(s): R06.00 - Dyspnea, unspecified (6) Generalized pain Current visit: No Status: Acute Began opiods and will titrate as needed. (7) Goals of care, counseling/discussion Current visit: No Status: Acute Transitioned patient to [facility] status. Palliative care to manage symptoms. Patient will be started on continuous opioids with intent to discontinue BiPAP and restraints once comfortable. (8) Pneumonia Current visit: No Status: Acute Qualifiers: Pneumonia type: due to unspecified organism Laterality: bilateral Lung location: lower lobe of lung Qualified Code(s): J18.1 - Lobar pneumonia, unspecified organism Internal Medicine - H&P: HPI Chief complaint: Shortness of breath/AMS Admitted From: Intrahospital Transfer History of present illness: Mr. Doe is a 78 year old male Past Med Surg Social Fam HX - Past Medical History Medical history: arthritis, atrial fibrillation, COPD, diabetes, GERD, hyperlipidemia, hypertension, thyroid disease, other Additional medical history: OA, PE Psychiatric history: no psych history - Past Surgical History Surgical History: cholecystectomy, knee replacement, orthopedic, other, pacemaker Additional surgical history: bilateral knee replacement, Right shoulder, heart cath with no stent placement. - Social History Smoking Status: Former smoker Smokeless Tobacco Status: No Alcohol use: none Drug use: none - Family History Mother Living Status: Hx Family Cancer: Yes (Metastatic breast cancer) Hx Family Endocrine Disorder: Yes (DM) Father Adopted: No Family Member Ethnicity: Non- Living Status: Hx Family Cardiac Disorders: No Hx Family Respiratory Disorders: Yes (Asbestosis) Hx Family Cancer: Yes (Lung CA) Hx Family GI Disorders: No Hx Family Endocrine Disorder: No Hx Family Neuromuscular Disorders: No Hx Family Neurologic Disorders: No Hx Family HEENT Disorders: No Hx Family Autoimmune Disorders: No Internal Medicine - H&P: Meds Acetylcysteine [U-Vjhstx-c-Cysteine] 600 mg PO TIDAC 05/17/18 [History] Amitriptyline HCl 100 mg PO DAILY 05/17/18 [History] Atorvastatin Calcium [Lipitor] 20 mg PO HS 05/17/18 [History] Finasteride [Proscar] 5 mg PO DAILY 05/17/18 [History] Fish Oil/Dha/Epa [Fish Oil 1,200 mg Fish Oil] 1 cap PO DAILY 05/17/18 [History] Fluticasone/Salmeterol [Advair Hfa 230-21 Mcg Inhaler] 1 puff IH DAILY 05/17/18 [History] Levothyroxine [Synthroid] 125 mcg PO 0630 05/17/18 [History] Loratadine [Claritin] 10 mg PO DAILY 05/17/18 [History] Lutein 20 mg PO DAILY 05/17/18 [History] Metformin HCl [Glucophage] 1,000 mg PO BID 05/17/18 [History] Ipratropium/Albuterol Neb [Duoneb] 3 ml IH Q6HR 06/01/18 [History] Polyethylene Glycol 3350 [MiraLAX] 17 gm PO DAILY PRN 06/01/18 [History] Aspirin [Ecotrin] 81 mg PO DAILY 30 Days #30 tablet. 06/22/18 [Rx] Omeprazole 20 mg PO DAILY 30 Days #30 tablet. 06/22/18 [Rx] Furosemide [Lasix] 40 mg PO BID 06/29/18 [History] SitaGLIPtin [Januvia] 100 mg PO DAILY 06/29/18 [History] Vit A/Vit C/Vit E/Zinc/Copper [Preservision Areds Tablet] 1 tab PO DAILY [History] Gabapentin [Neurontin] 300 mg PO TID #90 capsule 07/04/18 [Rx] Metoprolol [Lopressor] 50 mg PO BID #60 tablet 07/04/18 [Rx] Tamsulosin [Flomax] 0.4 mg PO DAILY #30 capsule 07/04/18 [Rx] Warfarin [Coumadin] 7 mg PO SUMOTUWEFRSA 07/31/18 [History] Warfarin [Coumadin] 9 mg PO TH 09/11/18 [History] Diltiazem CD (24hr) [Cardizem CD] 120 mg PO DAILY 30 Days #30 cap.er.24h [Rx] Docusate [Colace] 100 mg PO BID 30 Days #60 capsule 08/03/18 [Rx] Insulin DETEMIR [Levemir] 10 unit SQ BID #1 [id number] 08/03/18 [Rx] 3 Allergy/AdvReac Type Severity Reaction Status Date / Time No Known Allergies Allergy Verified 05/17/18 20:27 ROS unobtainable: due to mental status Palliative Care-Exam - Constitutional General appearance: Present: no acute distress, obese - Head Head Exam: Present: normal inspection, normocephalic - Respiratory Respiratory exam: Present: decreased breath sounds - Cardiovascular Cardiovascular exam: Present: +S1, +S2 - GI/Abdominal Exam GI/Abdominal exam: Present: normal bowel sounds, soft - Neurological Exam Neurological exam: Present: altered. Absent: oriented X3 - Expanded Neurological Exam Coma Scale Verbal Response: Confused - Psychiatric Psychiatric exam: Present: anxious Additional comments: Sleeping on BiPAP, when aroused is confused and agitated. Restrained. - Skin Skin exam: Present: dry, pallor, warm. Absent: intact Additional comments: Skin to feet bilaterally red and flaking. Palliative Quality Palliative Quality: Screen for Code Status: Yes, Screen for Goals of Care: Yes, Screen for Pain: Yes, If Pain Regimen Started, Initiate Bowel Regimen: Yes, Screen for Nausea/Vomitting: Yes Code Status: 08/15/18 13:18 Resuscitation Status: Active [RES] Routine Comment: Resuscitation Status: DNR-Comfort Care
[2018-08-16] MEDS: Haloperidol Lactate 5 MG/ML VIAL IVP SCH ×4 (01:25→20:59)
[2018-08-16] MEDS: FentaNYL (PF) 1,000 MCG in 0.9 % Sodium Chloride 80 ML IVC SCH ×2 (04:17→17:28)
[2018-08-16] MEDS: *HR* LORazepam 2 MG/ML VIAL IVP PRN ×2 (06:05→22:35)
--- NOTE | 2018-08-16 11:23 | Palliative Progress Note ---
Date of Encounter: 08/16/18 - Time Spent With Patient Total time spent is greater than 50% in coordination of care (as documented) at patient's floor/unit and/or counseling patient: - Subjective Interval history: Patient resting comfortably, multiple family members at bedside. Remains on high flow oxygen. - Constitutional General appearance: Present: no acute distress - Respiratory Respiratory exam: Present: decreased breath sounds, CTAB - Cardiovascular Cardiovascular exam: Present: +S1, +S2, tachycardia - GI/Abdominal GI/Abdominal exam: Present: diminished bowel sounds, distended, soft - Extremities Exam Extremities exam: Present: normal capillary refill, normal inspection - Neurological Exam Additional comments: Patient minimally responsive. Does not verbalize or follow commands. - Skin Skin exam: Present: dry, pallor, warm Palliative Quality Palliative Quality: Screen for Code Status: Yes, Screen for Goals of Care: Yes, Screen for Pain: Yes, If Pain Regimen Started, Initiate Bowel Regimen: Yes, Screen for Nausea/Vomitting: Yes Code Status: 08/15/18 13:18 Resuscitation Status: Active [RES] Routine Comment: Resuscitation Status: DNR-Comfort Care Consult Discharge Plan - Plan Referrals: Shayy Rodgers MD [Primary Care Provider] -
--- NOTE | 2018-08-16 13:24 | Palliative - Consult Note ---
Date of Encounter: 08/16/18 Time of Encounter: 13:30 - Assessment and Plan (1) Dyspnea Current Visit: No Status: Acute Assessment and plan: Continue with IV Fentanyl drip - currently at 75mcg/hr and boluses for breakthrough as needed. Continues with high flow oxygen - discussed with family this will likely prolong his life somewhat - discussed that slowly decreasing the oxygen and utilizing IV opioids would provide him comfort care while not prolonging the dying process. Family verbalized understanding and will discuss between them. D/W primary nurse Barbi as well. Qualifiers: Dyspnea type: unspecified Qualified Code(s): R06.00 - Dyspnea, unspecified (2) Generalized pain Current Visit: No Status: Acute Assessment and plan: Utilized Fentanyl as currently ordered. He has not required any breakthrough doses. Monitor and titrate as necessary. (3) Goals of care, counseling/discussion Current Visit: No Status: Acute Assessment and plan: Patient was transitioned off bipap yesterday late afternoon, after started on Fentanyl infusion. He appears very comfortable. Discussed with family weaning down oxygen slowly and see how he tolerates. It may not be adding to his comfort at this time. Will continue to follow and adjust medications as needed. (4) Agitation Current Visit: No Status: Acute Assessment and plan: He has been resting quietly without agitation. Continue Haloperidol every 6 hours and monitor (5) Anxiety Current Visit: No Status: Acute Assessment and plan: Continue Lorazepam PRN. Has utilized x1 last 24 hours. (6) COPD (chronic obstructive pulmonary disease) Current Visit: No Status: Chronic Qualifiers: COPD type: chronic bronchitis Chronic bronchitis type: unspecified Qualified Code(s): J42 - Unspecified chronic bronchitis (7) Acute respiratory failure with hypoxia Current Visit: No Status: Acute (8) Respiratory failure Current Visit: No Status: Acute Qualifiers: Chronicity: acute on chronic Respiratory failure complication: hypoxia Qualified Code(s): J96.21 - Acute and chronic respiratory failure with hypoxia Palliative-CN HPI - Data of Consult Consult date: 08/16/18 Requesting Physician: Dian Kruse Primary Care Provider: Shayy Rodgers MD - Consult Narrative Palliative Care/Comfort Measures: Hospice care History of present illness: Mr. Doe is a 78 year old male CC: Dian Kruse - Time Spent with Patient Time: Total time spent is greater than 50% in coordination of care (as documented) at patient's floor/unit and/or counseling patient: Past Med Surg Social Fam HX - Past Medical History Medical history: arthritis, atrial fibrillation, COPD, diabetes, GERD, hyperlipidemia, hypertension, thyroid disease, other Additional medical history: OA, PE Psychiatric history: no psych history - Past Surgical History Surgical History: cholecystectomy, knee replacement, orthopedic, other, pacemaker Additional surgical history: bilateral knee replacement, Right shoulder, heart cath with no stent placement. - Social History Smoking Status: Former smoker Smokeless Tobacco Status: No Alcohol use: none Drug use: none - Family History Mother Living Status: Hx Family Cancer: Yes (Metastatic breast cancer) Hx Family Endocrine Disorder: Yes (DM) Father Adopted: No Family Member Ethnicity: Non- Living Status: Hx Family Cardiac Disorders: No Hx Family Respiratory Disorders: Yes (Asbestosis) Hx Family Cancer: Yes (Lung CA) Hx Family GI Disorders: No Hx Family Endocrine Disorder: No Hx Family Neuromuscular Disorders: No Hx Family Neurologic Disorders: No Hx Family HEENT Disorders: No Hx Family Autoimmune Disorders: No Medications and Allergies Acetylcysteine [M-Gbzntq-d-Cysteine] 600 mg PO TIDAC 05/17/18 [History] Amitriptyline HCl 100 mg PO DAILY 05/17/18 [History] Atorvastatin Calcium [Lipitor] 20 mg PO HS 05/17/18 [History] Finasteride [Proscar] 5 mg PO DAILY 05/17/18 [History] Fish Oil/Dha/Epa [Fish Oil 1,200 mg Fish Oil] 1 cap PO DAILY 05/17/18 [History] Fluticasone/Salmeterol [Advair Hfa 230-21 Mcg Inhaler] 1 puff IH DAILY 05/17/18 [History] Levothyroxine [Synthroid] 125 mcg PO 0630 05/17/18 [History] Loratadine [Claritin] 10 mg PO DAILY 05/17/18 [History] Lutein 20 mg PO DAILY 05/17/18 [History] Metformin HCl [Glucophage] 1,000 mg PO BID 05/17/18 [History] Ipratropium/Albuterol Neb [Duoneb] 3 ml IH Q6HR 06/01/18 [History] Polyethylene Glycol 3350 [MiraLAX] 17 gm PO DAILY PRN 06/01/18 [History] Aspirin [Ecotrin] 81 mg PO DAILY 30 Days #30 tablet. 06/22/18 [Rx] Omeprazole 20 mg PO DAILY 30 Days #30 tablet. 06/22/18 [Rx] Furosemide [Lasix] 40 mg PO BID 06/29/18 [History] SitaGLIPtin [Januvia] 100 mg PO DAILY 06/29/18 [History] Vit A/Vit C/Vit E/Zinc/Copper [Preservision Areds Tablet] 1 tab PO DAILY [History] Gabapentin [Neurontin] 300 mg PO TID #90 capsule 07/04/18 [Rx] Metoprolol [Lopressor] 50 mg PO BID #60 tablet 07/04/18 [Rx] Tamsulosin [Flomax] 0.4 mg PO DAILY #30 capsule 07/04/18 [Rx] Warfarin [Coumadin] 7 mg PO SUMOTUWEFRSA 07/31/18 [History] Warfarin [Coumadin] 9 mg PO TH 07/31/18 [History] Diltiazem CD (24hr) [Cardizem CD] 120 mg PO DAILY 30 Days #30 cap.er.24h [Rx] Docusate [Colace] 100 mg PO BID 30 Days #60 capsule 08/03/18 [Rx] Insulin DETEMIR [Levemir] 10 unit SQ BID #1 [id number] 08/03/18 [Rx] 3 Allergy/AdvReac Type Severity Reaction Status Date / Time No Known Allergies Allergy Verified 05/17/18 20:27 ROS unobtainable: due to mental status Palliative Care-Exam - Constitutional Vitals: Temp Pulse Resp BP Pulse Ox 98.8 F 142 16 127/72 88 08/16/18 06:40 08/16/18 06:40 08/16/18 06:40 08/16/18 06:40 08/16/18 06:40 General appearance: Present: no acute distress, obese - Head Head Exam: Present: normal inspection, normocephalic - Respiratory Respiratory exam: Present: accessory muscle use, decreased breath sounds, CTAB Additional comments: Remains on high flow oxygen. - Cardiovascular Cardiovascular exam: Present: +S1, +S2, tachycardia - GI/Abdominal Exam GI/Abdominal exam: Present: diminished bowel sounds, distended, soft - Catheter Type: Urethral (Hoffman) - Extremities Exam Extremities exam: Present: normal capillary refill, normal inspection - Neurological Exam Additional comments: Nonresponsive to verbal and tactile stimuli - Skin Skin exam: Present: dry, pallor, warm Consult Discharge Plan - Plan Referrals: Shayy Rodgers MD [Primary Care Provider] - Palliative Quality Palliative Quality: Screen for Code Status: Yes, Screen for Goals of Care: Yes, Screen for Pain: Yes, If Pain Regimen Started, Initiate Bowel Regimen: Yes, Screen for Nausea/Vomitting: Yes Code Status: 08/15/18 13:18 Resuscitation Status: Active [RES] Routine Comment: Resuscitation Status: DNR-Comfort Care
[2018-08-16] MEDS: *HR* FentaNYL (PF) 100 MCG/2 ML VIAL IVP PRN (17:21)
[2018-08-16] MEDS: Atropine Sulfate 1% 40 DROP/2 ML BOTTLE SL PRN ×2 (18:56→22:41)
[2018-08-17] MEDS: Haloperidol Lactate 5 MG/ML VIAL IVP SCH ×4 (01:38→19:39)
[2018-08-17] MEDS: Atropine Sulfate 1% 40 DROP/2 ML BOTTLE SL PRN ×4 (01:41→13:00)
[2018-08-17] MEDS: FentaNYL (PF) 1,000 MCG in 0.9 % Sodium Chloride 80 ML IVC SCH ×2 (08:39→18:48)
[2018-08-17] MEDS ORDERED: Glycopyrrolate 0.2 MG/ML VIAL IVP ONE ×2 (09:17→18:23)
[2018-08-17] MEDS ORDERED: Acetaminophen 650 MG RECTAL SUPP RC PRN (09:18)
--- NOTE | 2018-08-17 09:22 | Palliative Progress Note ---
Date of Encounter: 08/17/18 Time of Encounter: 09:00 - Assessment and plan (1) Congestion of upper airway Current Visit: Yes Status: Acute Assessment and plan: + terminal secretions - family states atropine drops do not seem very effective. Discussed that we can try some other medications, but they may or may not make a difference. Will give Glycopyrrolate x1 and add Scopolamine patch. (2) Dyspnea Current Visit: No Status: Acute Assessment and plan: Appears to be in increased resp distress this am - will increase Fentanyl drip to 100mcg and monitor. Qualifiers: Dyspnea type: unspecified Qualified Code(s): R06.00 - Dyspnea, unspecified (3) Generalized pain Current Visit: No Status: Acute Assessment and plan: Continue IV Fentanyl with boluses doses as needed. Utilized breakthrough doses x2 last 24 hours. (4) Agitation Current Visit: No Status: Acute Assessment and plan: Continue scheduled Haloperidol (5) Anxiety Current Visit: No Status: Acute Assessment and plan: Continue IV Lorazepam. Has only utilized x2 last 24 hours, but appears he would benefit from dose at this time. D/W primary nurse Trini. (6) Goals of care, counseling/discussion Current Visit: No Status: Acute Assessment and plan: Discussed with and children at bedside, that his condition continues to decline and he is closer to passing, however, we do not know that timeline. He appears increasingly restless and noisy breathing this am, spoke with primary nurse and will titrate Fentanyl drip at this time. Also explained that it is common to see increased fevers and medicating for this may or may not help. Family tearful at bedside and verbalized understanding. (7) COPD (chronic obstructive pulmonary disease) Current Visit: No Status: Chronic Qualifiers: COPD type: chronic bronchitis Chronic bronchitis type: unspecified Qualified Code(s): J42 - Unspecified chronic bronchitis (8) Acute respiratory failure with hypoxia Current Visit: No Status: Acute (9) Respiratory failure Current Visit: No Status: Acute Qualifiers: Chronicity: acute on chronic Respiratory failure complication: hypoxia Qualified Code(s): J96.21 - Acute and chronic respiratory failure with hypoxia - Time Spent With Patient Total time spent is greater than 50% in coordination of care (as documented) at patient's floor/unit and/or counseling patient: 25 - 35 minutes - Subjective Interval history: Patient is non communicative but is restless, and having occasional grimacing. + upper airway secretions. Increasing fevers up to 101.5 this am. Oxygen level mid 80's. Family has agreed to wean this down and currently at 4LPM. Feet dusky. - Constitutional General appearance: Present: mild distress - Respiratory Additional comments: Rhonchi throughout. Oxygen down to 4LPM. + upper airway secretions - Cardiovascular Cardiovascular exam: Present: tachycardia - GI/Abdominal GI/Abdominal exam: Present: diminished bowel sounds, distended, soft - Extremities Exam Additional comments: Bilateral feet dusky. - Neurological Exam Additional comments: Does not respond to tactile stimuli. Does become restless with some grimacing at times. - Skin Skin exam: Present: dry, pallor, warm Palliative Quality Palliative Quality: Screen for Code Status: Yes, Screen for Goals of Care: Yes, Screen for Pain: Yes, If Pain Regimen Started, Initiate Bowel Regimen: Yes, Screen for Nausea/Vomitting: Yes Code Status: 08/15/18 13:18 Resuscitation Status: Active [RES] Routine Comment: Resuscitation Status: DNR-Comfort Care Consult Discharge Plan - Plan Referrals: Shayy Rodgers MD [Primary Care Provider] -
[2018-08-17] MEDS ORDERED: Scopolamine Patch 1.5 MG PATCH.TD72 TD SCH (09:30)
[2018-08-17] MEDS: *HR* LORazepam 2 MG/ML VIAL IVP PRN ×2 (09:35→15:55)
--- NOTE | 2018-08-17 14:40 | Event Note ---
Date of Encounter: 08/17/18 Time of Encounter: 14:35 Fentanyl drip increased to 100mcg/hour this am. Patient appears to have increased work of breathing and increased secretions despite atropine drops. Scopolamine patch placed this am. Will add IV Robinul and increase Fentanyl 125mcg/hour.
[2018-08-17] MEDS: *HR* FentaNYL (PF) 100 MCG/2 ML VIAL IVP PRN ×4 (15:55→20:44)
[2018-08-17] MEDS ORDERED: *HR* LORazepam 2 MG/ML VIAL IVP ONE (17:05)
[2018-08-17 20:17] VITALS: BP 79/55
--- NOTE | 2018-08-21 08:46 | Death Note ---
Discharge Sum: Summary - Date and Time Date of admission: 08/15/18 14:55 Date of : 08/17/18 Time of : 22:25 - Summary Details: Mr. Doe was an 78 y/o patient who was in the hospital for treatment of pneumonia and respiratory failure. He had been in the hospital 7 times since May with complications and exacerbation of multiple medical conditions, including: COPD, CHF, and Atrial fibrillation s/p pacemaker insertion. He was transitioned to inpatient hospice as his condition was not improving and he was requiring bipap on a continuous basis. Patient's and family decided to transition to DNR-Comfort care, and transition him off the bipap, understanding that he may not survive long. Fentanyl IV continuous infusion was initiated and titrated to where patient appeared comfortable and he was liberated from the bipap machine. He was kept comfortable and multiple family members were in to visit him. He peacefully at 2225 with family at bedside. - Additional Data Confirmation of as documented by pronouncing clinician: no pulse, no respirations, no heart sounds Family: at bedside Attending/PCP notified?: Yes Attending physician: Dian Kruse Was code activated?: No Hospice patient?: Yes Discharge Sum: Diag - PCOD Probable Cause of : Respiratory arrest Discharge Sum: Prov - Provider Primary care physician: Shayy Rodgers MD Admitting clinician: Dian Kruse Attending physician on admission: Antoine Mendez Consults: 08/15/18 13:18 Consult to Palliative Care [CONS] Routine Comment: Consulting Provider: Palliative Care [place] Reason for Consult: GIP Time Notified: 13:25 Call Completed: Yes
== END 2018-08-17 22:25 | disposition expired | DRG 951 ==
LOC: 2ANU 14:55
PROVIDERS: ADMIT Nurse Practitioner Family; ATTEND Nurse Practitioner Family